=== PATIENT | female | born 1950 | race Caucasian/White ===

== ENCOUNTER → 2018-05-02 15:45 | Outpatient (CLI) | payer MEDICARE, MEDICAID, SELFPAY ==
--- NOTE | 2018-05-02 15:51 | VDLE_ITS ---
Reason For Study: LEG PAIN AND SWELLING RIGHT LEFT CFV is compressible, spontaneous, phasic, GSV is normal. competent and demonstrates normal CFV is compressible, spontaneous, phasic, augmentation. competent, and demonstrates normal Procedure augmentation. Exam performed in department. FV is compressible, spontaneous, phasic, A preliminary report was called and/or faxed competent and demonstrates normal to Dr. Hinson. augmentation. POP V is compressible, spontaneous, phasic, competent and demonstrates normal augmentation. T/P Trunk is compressible. PTV is compressible. LT PerV is compressible. Interpretation Summary Deep veins of the left lower extremity are patent and compressible segmentally. There is no evidence of left lower extremity deep vein thrombosis. Valvular competence appears intact within the proximal deep venous system on the left . The left greater saphenous vein appears patent and compressible segmentally. Ordering Physician: Victor Hugo Hinson Referring Physician: Victor Hugo Hinson Performed By: Tamiko Marc RVT
== END ==
PROVIDERS: Family Provider Family Medicine; PCP Family Medicine; Visit Provider Family Medicine
DX: R60.9 Edema, unspecified (principal)
CPT/HCPCS: 93971

== ENCOUNTER → 2018-06-10 11:57 | Outpatient (CLI) | payer MEDICAID, MEDICARE, SELFPAY | PROVIDERS: Family Provider Family Medicine; PCP Family Medicine; Visit Provider Family Medicine | DX: M81.0 Age-related osteoporosis without current pathological fracture (principal) | CPT/HCPCS: 77080 ==

== ENCOUNTER → 2019-01-19 13:46 | Outpatient (CLI) | payer MEDICARE, MEDICAID, SELFPAY ==
[2017-03-30 19:20] VITALS: BMI 26.0
--- NOTE | 2019-01-19 13:56 | RAD_ITS ---
STUDY: X-RAY - LUMBAR SPINE REASON FOR EXAM: Female, 69 years old. Sacroiliac strain/hip pain. TECHNIQUE: 3 view(s) of the lumbar spine were obtained. COMPARISON: None FINDINGS: Normal lumbar lordosis. There is no substantial scoliosis. There is a normal alignment of the vertebrae. Old and she was compression fracture of the upper L2 vertebral body. No suspicious acute fractures in the lumbar spine. Moderate L5-S1 disc space height narrowing. All remaining lumbar disc space heights are normal. Dense atherosclerotic calcifications along the abdominal aorta and the iliac arteries. RAD/Lumbar Spine 2 or 3 Views IMPRESSION: 1. Old anterior wedge compression fracture of the upper L2 vertebral body. 2. No acute osseous abnormality of the lumbar spine. 3. Moderate L5-S1 disc space height narrowing. Electronically Signed: Sheldon Ocampo MD at 12:36 EDT , Service support ,
== END ==
PROVIDERS: Family Provider Family Medicine; PCP Family Medicine; Referring Provider Chiropractor Orthopedic; Visit Provider Chiropractor Orthopedic
DX: M25.559 Pain in unspecified hip (principal)
CPT/HCPCS: 72100

== ENCOUNTER → 2019-02-17 | Outpatient (CLI) | payer MEDICARE, MEDICAID, SELFPAY ==
[2017-03-30 19:20] VITALS: BMI 26.0
--- NOTE | 2019-02-17 14:37 | RAD_ITS ---
STUDY: X-RAY - PELVIS AND RIGHT HIP REASON FOR EXAM: Female, 69 years old. Hip pain status post exercise/work TECHNIQUE: 3 views of the pelvis and hip. COMPARISON: None. FINDINGS: Alignments appear anatomic. There is no acute fracture lucency. There is no cortical step-off. There is minimal bilateral hip osteoarthritis. Mild degenerative changes are seen throughout the visualized segments of the inferior lumbar spine and sacrum. Calcified pelvic phleboliths are seen in the left paramedian pelvis. There is a mild to moderate, nonerosive degenerative change of both sacroiliac joints. The bowel gas pattern within the field of view demonstrates a moderately prominent amount of air and stool throughout the visualized colonic segments. Advise correlation for constipation. RAD/HIP, UNI W/ Pelvis 2-3 Views IMPRESSION: No evident acute osseous abnormality. Arthritic changes as discussed above. The bowel gas pattern within the field of view demonstrates a moderately prominent amount of air and stool throughout the visualized colonic segments. Advise correlation for constipation. Electronically Signed: Alejandro Coffman MD at 16:14 EDT , Service support ,
== END | disposition home or self-care (01) ==
LOC: RAD 14:12
PROVIDERS: Family Provider Family Medicine; PCP Family Medicine; Referring Provider Family Medicine; Visit Provider Family Medicine
DX: M25.551 Pain in right hip (principal); M81.0 Age-related osteoporosis without current pathological fracture
CPT/HCPCS: 73502

== ENCOUNTER 2019-02-27 11:30 | Outpatient (RCR) | payer MEDICARE, SELFPAY ==
--- NOTE | 2019-02-23 12:55 | HP.PTEVAL_ITS ---
Patient's Visit Information JUAN HAWKINS is a 69 year old F referred to Physical Therapy by Mary De León MD with a diagnosis of R hip pain.. Date of Evaluation: 02/23/19 Physical Therapist: Jeff Garcia DPT, OCS, CSCS - Visit Plan Frequency: 3x /Week Duration: 4-6 Weeks Plan: Pt presents with extreme acute R hip pain very unusual and very limiting to walking WB. Will try to treat symptoms and maximize healing potential btu questionable prognosis and will get back to doctor quickly if not helping for more diagnostics for labral vs fracture. Start with distraction and PROM combined with patient leg swing adn NWB ambulation R and do ES and ice for the first week to treat pain, will recheck with therapist in a week for decision to cotninue or back to doctor. - Subjective Findings: Two months ago hurt R posterior hip bending over to move boxes. Got worse over time where it hurts in her groin now adn needs to use wh walker, did not need prior. Dr. Cardozo treated posterior pain and then x rays from [facility] doctor and found muscle spasms according to patient. Given muscle relaxer adn pain pills. Been on them a week and not helping. No other treatments. Sleep is OK most of time but wakes up sometimes as she moved it the worng way last night. Pain is unusually sore today at 10/10 in R groin.. Normally around 7/10 lately , 0/10 prior. Hurts at rest on back of leg. Sometimes hard to move leg on its own. Not employed. 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 No falls. Did fall in kitchen 2 week with R leg giving out. Wasn't using walker at that time. Can dress and and do basic ADLs on her own. - Pain R groin Pain Intensity (Out of 10): 7 Pain Intensity Range: 2, 10 - Objective Ambulating with wh walker Min WB R and antalgic. Unable to ambulate without AD, unable to march in place adn avoids WB R in stance. L/S aROM WNL but ext adn L SB give her R groin pain. Tender minimally in psoas and generally anterior R hip and groin area. L hip AROM WFL and without pain. R hip AROM max limited due to pain in all directions, PROM only slightly less painful than AROM. Distraction does seem to help her walk slightly better and decreases pain to 3/10 trasniently. NWB walker is netter. Unable to do special tests at hip due to extreme pain with R hip movements in fexion and rotation and abduction all limted maximally even with PROM. Unable to SLS on R. Unable to lift R leg without extreme pain in any plane. - Goals Goal 1:: Pt painfree at rest adn 3/10 max pain with WB ambualtion. Goal Time Frame: 4-6 Weeks Goal 2:: Sleep without waking due to pain. Goal Time Frame: 4-6 Weeks Goal 3:: Pt able to climb steps with R I Goal Time Frame: 4-6 Weeks Goal 4:: I approp HEP to minimize future problems. Goal Time Frame: 4-6 Weeks - Rehabilitation Potential Physical Therapy Diagnosis: R hip pain, DD include labral vs fracture vs acute OA flare up. Rehabilitation Potential: Questionable - Anticipated Interventions Patient/Client Instruction: Educate patient on: Condition, Plan of Care For the Purpose of:: To decrease pain, To improve muscle performance and motor function, To improve gait and locomotor functions Therapeutic Exercise to Include: Strength training, Gait and locomotor training, Passive ROM For the Purpose of:: To decrease pain, To increase ROM, To improve nutrient delivery to tissue, To improve ability of physical actions for home/community/work/leisure, To improve gait and locomotor functions Manual Therapy Techniques to Include: Mobilization Comment: grade 1-2 For the Purpose of:: To decrease pain, To increase ROM TENS: Yes Cryotherapy (ice pack, ice massage): Yes For the Purpose of:: To decrease pain Thank you for the opportunity to evaluate your patient. For Medicare and Medicare HMO plans, please review the plan of care and approve it. It will need to be FAXED BACK to us at [phone] for Medicare purposes. For Medicare only, by signing this I certify the plan of care. Please let me know if there are questions or concerns regarding this plan of care. Physician Signature: _Date:
--- NOTE | 2019-03-10 11:58 | HP.PT.NRP ---
HP - Discharge Summary (1) - Patient Information JUAN HAWKINS was seen in my office for initial evaluation on 02/23/19. The following Plan of Care was established for this patient: Initial Frequency: 3x /Week Initial Duration: 4-6 Weeks - Anticipated Interventions Patient/Client Instruction: Educate patient on: Condition, Plan of Care For the Purpose of:: To decrease pain, To improve muscle performance and motor function, To improve gait and locomotor functions Therapeutic Exercise to Include: Strength training, Gait and locomotor training, Passive ROM For the Purpose of:: To decrease pain, To increase ROM, To improve nutrient delivery to tissue, To improve ability of physical actions for home/community/work/leisure, To improve gait and locomotor functions Manual Therapy Techniques to Include: Mobilization Comment: grade 1-2 For the Purpose of:: To decrease pain, To increase ROM TENS: Yes Cryotherapy (ice pack, ice massage): Yes For the Purpose of:: To decrease pain This patient was last seen in our office 02/27/19. Pertinent comments regarding their Physical therapy will appear below: Pt seen for 3 visits of plan of care but was sent back to doctor due to unusual findings of pain. Had MRI and has fractured pelvis and will not be returning to PT anytime soon as she has to heal for 6 weeks. i will disocntinue at her request per her phone call today. At this point I will be discontinuing this patient from physical therapy. I would be happy to see this patient again in the future if found appropriate by the physician. Thank you! Jeff Garcia, DPT, OCS, CSCS
== END 2019-02-27 19:00 | disposition home or self-care (01) ==
LOC: PT 11:30
PROVIDERS: Family Provider Family Medicine; PCP Family Medicine; Referring Provider Family Medicine; Visit Provider Family Medicine
DX: M25.551 Pain in right hip (principal)
CPT/HCPCS: 97014; 97110; 97140; 97162; G0283

== ENCOUNTER → 2019-03-06 12:05 | Outpatient (CLI) | payer MEDICARE, MEDICAID, SELFPAY ==
--- NOTE | 2019-03-06 12:13 | MRI_ITS ---
STUDY: MRI RIGHT HIP REASON FOR EXAM: Right hip pain status post lifting injury several weeks ago. TECHNIQUE: Standardized fat and water weighted pulse sequences were obtained in all 3 orthogonal planes. COMPARISON: Radiographs 02/17/2019. FINDINGS: There is chondral thinning of the medial right hip joint (T1 coronal image 18). There is a suspected small right anterosuperior labral tear (proton-density sagittal image 13). Normal femoral head. Normal femoral neck and intratrochanteric region. Normal gluteus minimus, medius and iliopsoas tendons and distal insertions. There is minimal fluid in the right greater trochanteric bursa. There is a nondisplaced fracture of the right superior pubic ramus with bone edema extending into the acetabulum (inversion recovery axial images 20, 21). There is a nondisplaced fracture of the right inferior pubic ramus with bone edema (inversion recovery axial images 26, 27). The bone edema extends into the right parasymphyseal bone. Normal ischial tuberosity. Normal origin of the hamstring tendons. There is a nondisplaced fracture of the right sacral ala with bone edema (inversion recovery coronal images 9-11). There is edema in the right obturator externus muscle (inversion recovery axial images 24-28). MRI/Lower Ext Joint Only (Routine) IMPRESSION: Nondisplaced fractures of the right obturator ring and right sacral ala. Edema in the right obturator externus muscle. Right hip arthrosis with suspected small anterosuperior labral tear. Electronically Signed: Thom Addison MD at 13:45 EDT Tel , Service support ,
== END ==
PROVIDERS: Family Provider Family Medicine; PCP Family Medicine; Referring Provider Family Medicine; Visit Provider Family Medicine
DX: M25.559 Pain in unspecified hip (principal); M81.0 Age-related osteoporosis without current pathological fracture
CPT/HCPCS: 73721

== ENCOUNTER → 2019-03-18 | Outpatient (CLI) | payer MEDICARE, SELFPAY ==
[2017-03-30 19:20] VITALS: BMI 26.0
== END | disposition home or self-care (01) ==
LOC: LABSPEC 15:32
PROVIDERS: Family Provider Family Medicine; PCP Family Medicine; Referring Provider Internal Medicine Cardiovascular Disease; Visit Provider Internal Medicine Cardiovascular Disease
DX: I25.10 Atherosclerotic heart disease of native coronary artery without angina pectoris (principal); I10 Essential (primary) hypertension
CPT/HCPCS: 84484

== ENCOUNTER → 2019-03-24 | Outpatient (CLI) | payer MEDICARE, MEDICAID, SELFPAY ==
--- NOTE | 2019-03-24 09:30 | STRESSREP ---
Stress Test Report Date: 03-24-19 Procedure: Pharmacologic stress nuclear imaging study Indications: Shortness of breath/dyspnea; dizziness; CAD Consent: Per the patient Procedure: The patient underwent pharmacologic (Regadenoson) evaluation with a peak heart rate of 91 beats per minute (60 %predicted maximal heart rate) and a peak blood pressure of 190/98 mmHg. The baseline ECG demonstrated sinus bradycardia; nonspecific ST/T wave abnormality. The peak pharmacologic ECG demonstrated no obvious ECG changes. There were no cardiac dysrhythmias pretest, during pharmacologic infusion, or recovery. There was no complaint of chest discomfort during pharmacologic infusion or recovery. The examination was discontinued secondary to completion of protocol. Impression: 1. Pharmacologic (Regadenoson) evaluation 2. Peak pharmacologic ECG with continued nonspecific ST/T wave abnormality with no obvious ECG changes. 3. There were no cardiac dysrhythmias pretest, during pharmacologic infusion, or recovery. 4. Nuclear images pending Myocardial perfusion imaging study: Technique: The patient was injected with 10.8 millicuries of technetium 99m Cardiolite and subsequently rest SPECT Cardiolite nuclear imaging was obtained in the horizontal long, vertical long, and short axis views. The patient underwent pharmacologic (Regadenoson) evaluation with a peak heart rate of 91 beats per minute (60 % percent predicted maximal heart rate) and a peak blood pressure of 190/98 mmHg. The patient was injected with 30.1 millicuries of technetium 99m Cardiolite and subsequently stress SPECT Cardiolite nuclear imaging was obtained in the horizontal long, vertical long, and short axis views. A gated Cardiolite study at peak stress was obtained. Interpretation: Rest and stress SPECT Cardiolite nuclear imaging status post realignment, normalization, and attenuation correction demonstrate relative uniform tracer uptake and myocardial perfusion appearing within normal limits. There is end systolic thickening and brightening. The gated Cardiolite study demonstrates myocardial thickening and inward wall motion. The reported LVEF is 79 %. Impression: 1. Rest and stress SPECT Cardiolite nuclear imaging demonstrate relative uniform tracer uptake and myocardial perfusion appearing within normal limits. 2. The gated Cardiolite study reports an LVEF of 79 %. This note was generated with [employer] software. It may contain incorrect words, spelling, and punctuation that were not noted in checking the note before signing.
== END | disposition home or self-care (01) ==
PROVIDERS: Family Provider Family Medicine; PCP Family Medicine; Referring Provider Internal Medicine Cardiovascular Disease; Visit Provider Internal Medicine Cardiovascular Disease
DX: I25.10 Atherosclerotic heart disease of native coronary artery without angina pectoris (principal); R31.0 Gross hematuria; I10 Essential (primary) hypertension
CPT/HCPCS: 78452; 87086; 87088; 93017; A9500; A4216; J2785

== ENCOUNTER → 2019-04-16 | Outpatient (CLI) | payer MEDICARE, MEDICAID, SELFPAY ==
--- NOTE | 2019-04-16 06:33 | CT_ITS ---
STUDY: CT ABDOMEN AND PELVIS WITH AND WITHOUT CONTRAST REASON FOR EXAM: Female, 69 years old. Gross hematuria for 2 weeks. RADIATION DOSAGE (If Supplied By Facility): CTDIvol = ( 11.15 ) mGy, DLP = ( 1220.76 ) mGycm TECHNIQUE: Transaxial images were obtained from the dome of the diaphragm to the symphysis pubis without oral contrast. 100 ml of IV Isovue 300 was administered. Sagittal and coronal images were reconstructed. Individualized dose optimization techniques were used for this CT. COMPARISON: CT abdomen and pelvis dated December 16, 2014. FINDINGS: The visualized lung bases are unremarkable. The visualized portions of the heart are within normal limits. Normal liver. Normal gallbladder and extrahepatic biliary system. Normal spleen. Normal pancreas. Normal bilateral adrenal glands. Normal right kidney. Normal left kidney. Delayed images document excretion of contrast by both kidneys. Normal visualized stomach. There is no evidence for dilated bowel, ascites or pneumoperitoneum. The small bowel has a grossly normal appearance. There is a large amount of stool visible throughout most of the colon suggesting possible fecal stasis and/or constipation. There are scattered colonic diverticula. The cecum is mobile and apparently is located in the left upper quadrant. There is non-visualization of the appendix. There is diffuse atherosclerotic calcification of the abdominal aorta, without a demonstrated aneurysm. There is venous distention of the inferior vena cava (IVC). Normal retroperitoneum. There is a calcification in the urinary bladder measuring approximately 5.8 mm in size. There is absence of the uterus consistent with a prior hysterectomy. There is a small umbilical hernia containing fat. There is severe compression fracture of T11 with vertebral plana appearance. This is new since the previous study. There is mild acquired canal stenosis at this level secondary to encroachment of the posterior margin of the C2 body into the spinal canal. There is moderate compression fracture of L2, unchanged since the previous study. The bones are generally osteopenic. There is multilevel degenerative disc disease in the degenerative arthropathy of the thoracic and lumbar spine. There is eburnation of the right sacrum possibly related to insufficiency fracture. This is also new since the previous CT. There is a evidence of degenerative arthropathy of the left sacroiliac joint. There is a subacute fracture of the right inferior pubic ramus and right superior pubic ramus. CT/CT Abd/Pelvis W/WO Contrast IMPRESSION: 1. Ureteral bladder calculus. 2. Extensive atherosclerotic calcification of the abdominal aorta. 3. Osteoporosis with severe compression fracture of T11, new since the previous CT. 4. Evidence for insufficiency fracture of the the right sacral ala, as well as the fractures of the right superior and inferior pubic rami similar to previous MRI report dated March 06, 2019. The MR images are not available for comparison at the time of dictation. 5. Large amount of stool suggesting possible fecal stasis and/or constipation. 6. Probable mobile cecum. Electronically Signed: Lia Hanson MD at 10:38 EDT , Service support ,
== END | disposition home or self-care (01) ==
LOC: CT 06:31
PROVIDERS: Family Provider Family Medicine; PCP Family Medicine; Referring Provider Urology; Visit Provider Urology
DX: R31.0 Gross hematuria (principal)
CPT/HCPCS: 74178; Q9967

== ENCOUNTER → 2019-04-20 | Outpatient (CLI) | payer MEDICARE, MEDICAID, SELFPAY ==
--- NOTE | 2019-04-20 10:30 | CT_ITS ---
STUDY: CT ABDOMEN AND PELVIS WITHOUT CONTRAST REASON FOR EXAM: Female, 69 years old. Possible surgery to remove kidney stone RADIATION DOSAGE (If Supplied By Facility): CTDIvol = ( 8.82 ) mGy, DLP = ( 388.41 ) mGycm TECHNIQUE: Transaxial images were obtained from the dome of the diaphragm to the symphysis pubis without oral contrast, and without intravenous contrast. Sagittal and coronal images were reconstructed. Individualized dose optimization techniques were used for this CT. COMPARISON: 04/16/2019 FINDINGS: The visualized lung bases are unremarkable. The visualized portions of the heart are within normal limits. Normal liver. Normal gallbladder and extrahepatic biliary system. Normal spleen. Normal pancreas. Normal bilateral adrenal glands. Normal right kidney. Normal left kidney. Normal visualized stomach. Normal small intestine. Prominent fecal retention throughout the colon. There is non-visualization of the appendix. There is diffuse atherosclerotic calcification of the abdominal aorta, without a demonstrated aneurysm. Normal inferior vena cava. Normal retroperitoneum. Previous stone noted within the bladder measuring 5.8 mm is no longer clearly identified. Status post hysterectomy There is a small umbilical hernia containing fat. There are diffuse degenerative changes of the visualized lumbar spine. Healing fractures of the right superior and inferior pubic rami. Right sacral insufficiency fracture with healing. CT/Abdomen/Pelvis without Cont IMPRESSION: No evidence of urolithiasis or renal obstruction. Previous bladder stone is no longer identified. Fecal retention throughout the colon Electronically Signed: Abdirizak Vasquez DO at 11:25 EDT Tel , Service support ,
== END | disposition home or self-care (01) ==
PROVIDERS: Family Provider Family Medicine; PCP Family Medicine; Referring Provider Urology; Visit Provider Urology
DX: N20.0 Calculus of kidney (principal); R31.0 Gross hematuria
CPT/HCPCS: 74176

== ENCOUNTER → 2019-05-12 10:20 | Outpatient (CLI) | payer MEDICARE, SELFPAY ==
[2019-04-22 11:35] VITALS: BMI 24.2
== END ==
PROVIDERS: Family Provider Family Medicine; PCP Family Medicine; Referring Provider Urology; Visit Provider Urology
DX: R31.0 Gross hematuria (principal)

== ENCOUNTER → 2019-05-20 | Outpatient (CLI) | payer MEDICARE, SELFPAY ==
[2019-04-22 11:35] VITALS: BMI 24.2
[2019-05-20 12:24] LABS: Absolute Lymphocyte Count 2.05 X10^3/uL (0.83-4.51); Absolute Neutrophil Count 2.9 X10^3/uL (2.0-7.7); Basophil# 0.08 X10^3/uL; Basophil% 1.4 % (0-1); Eosinophil# 0.43 X10^3/uL; Eosinophils% 7.4 % (0-5); Hematocrit 47.3 % (37-47); Hemoglobin 15.2 g/dL (12.0-15.0); Lymphocyte # 2.05 X10^3/ul (4.0); Lymphocyte % 35.2 % (19-41); Mean Corp Hgb Conc 32.1 g/dL (32-36); Mean Corpuscular Hgb 30.6 pg (27.0-32.0); Mean Corpuscular Volume 95.2 fL (81-99); Mean Platelet Vol. 11.1 fl (6.2-12.0); Monocyte# 0.35 X10^3/uL; NRBC Flagged by Analyzer 0 % (0-5); Neutrophil % 49.8 % (47-70); Platelet Count 210 K/mm3 (150-450); RBC Distribution Width CV 14.3 % (11.6-14.6); RBC Distribution Width SD 50.1 fl (35.1-43.9); Red Blood Count 4.97 M/mm3 (4.2-5.4); White Blood Count 5.8 K/mm3 (4.4-11.0)
[2019-05-20 12:51] LABS: ALB/GLOB Ratio 1.1 RATIO (0.9-2.4); AST(SGOT) 21 U/L (15-37); Alanine Aminotransfer ALT/SGPT 22 U/L (13-56); Albumin, Serum 3.8 g/dL (3.2-5.0); Alkaline Phosphatase 114 U/L (45-117); Anion Gap 5 (5-15); BUN 12 mg/dL (7-18); BUN/Creat Ratio 16.5 RATIO (10-20); Chloride 107 mmol/L (98-107); Cholesterol 185 mg/dL (200); Creatinine, Serum 0.73 mg/dL (0.55-1.02); EST Glomerular Filtration Rate 84 mL/min (>60); Est Glom Filt Rate - Afr Amer 102 mL/min (>60); Globulin 3.4 g/dL (2.2-4.2); Glucose 96 mg/dL (74-106); High Density Lipoprotein 63 mg/dL; Potassium 3.8 mmol/L (3.5-5.1); Protein, Total 7.2 g/dL (6.4-8.2); Sodium Level 141 mmol/L (136-145); Triglycerides 79 mg/dL; Very Low Density Lipoprotein 16 mg/dL (5-40)
== END | disposition home or self-care (01) ==
LOC: LAB.FUTURE 08:06
PROVIDERS: Family Provider Family Medicine; PCP Family Medicine; Visit Provider Family Medicine
DX: I10 Essential (primary) hypertension (principal); E78.5 Hyperlipidemia, unspecified
CPT/HCPCS: 36415; 80053; 80061; 85025

== ENCOUNTER → 2019-05-29 | Outpatient (CLI) | payer MEDICARE, MEDICAID, SELFPAY ==
[2019-04-22 11:35] VITALS: BMI 24.2
--- NOTE | 2019-05-29 07:39 | ECHOCS_ITS ---
Reason For Study: HYPERTENSION Procedure This was a 2D Doppler, Color Flow transthoracic echocardiogram. The study was technically difficult. Diminished parasternal accoustic windows. Contrast injection was performed. Left Ventricle Normal LV size. Left ventricular systolic function is normal. The estimated ejection fraction is 65 %. Stage 1 diastolic dysfunction. No regional wall motion abnormalities noted. Right Ventricle Normal RV size. Normal systolic function. Atria Normal left atrium. Normal right atrium. Bubble contrast study negative for right to left interatrial shunt. Mitral Valve Normal mitral valve. Mild (1+) eccentric mitral valve insufficiency. Tricuspid Valve Normal tricuspid valve. Mild (1+) tricuspid valve insufficiency. Pulmonary artery systolic pressure is 30 mmHg. Aortic Valve Trisinus/trileaflet aortic valve. Mild focal aortic valve calcification. Mild aortic stenosis. Pulmonic Valve Normal pulmonic valve. Great Vessels Normal aortic root. The pulmonary artery is normal size. Normal inferior vena cava. Pericardium/Pleural No pericardial effusion. Medication 22 gauge I.V. with prn adaptor inserted into right arm. Performed a rapid injection of agitated mix of 9 cc saline and 1cc air to assess for atrial septal defect. Diluted definity 3.0ml given slow IV push to enhance endocardial definition. MMode/2D Measurements & Calculations LVIDd: 4.4 cm IVSd: 1.1 cm LVOT diam: 1.8 cm LVIDs: 2.7 cm LVPWd: 1.1 cm RVDd: 2.9 cm FS: 37.5 % LVOT area: 2.6 cm2 Ao root diam: 3.1 cm LAV(MOD-bp): 60.7 ml EDV(MOD-sp4): 68.5 ml LAV(MOD-bp) Indexed: 36.0 ml/m2 ESV(MOD-sp4): 20.6 ml LAV(MOD-sp2): 58.4 ml EF(MOD-sp4): 70.0 % LAV(MOD-sp4): 58.1 ml EDV(MOD-sp2): 39.8 ml SV(MOD-sp4): 47.9 ml SV(MOD-sp2): 23.7 ml EF(MOD-sp2): 59.4 % LA dimension(2D): 4.3 cm LA A4 area: 20.2 cm2 RA A4 area: 14.1 cm2 Time Measurements MV dec time: 0.28 sec Doppler Measurements & Calculations MV E max cornel: 89.8 cm/sec Lat Peak E' Cornel: 6.9 cm/sec Med Peak E' Cornel: 5.8 cm/sec MV A max cornel: 98.0 cm/sec E/E' lat: 13.0 E/E' med: 15.6 MV E/A: 0.92 Ao V2 max: 222.4 cm/sec LV V1 max: 141.4 cm/sec SV(LVOT): 91.4 ml Ao max P.8 mmHg LV V1 max P.0 mmHg Ao V2 mean: 151.7 cm/sec LV V1 mean P.1 mmHg Ao mean P.3 mmHg LV V1 mean: 95.5 cm/sec Ao V2 VTI: 54.0 cm LV V1 VTI: 35.2 cm ROSETTA(I,D): 1.7 cm2 ROSETTA(V,D): 1.7 cm2 PA V2 max: 89.8 cm/sec TR max cornel: 251.2 cm/sec TR max P.3 mmHg Interpretation Summary Normal LV size. Left ventricular systolic function is normal. The estimated ejection fraction is 65 %. Stage 1 diastolic dysfunction. Mild focal aortic valve calcification. Mild aortic stenosis. Contrast injection was performed. Ordering Physician: Salo Serrano Referring Physician: Mary De León Performed By: Rashida Mejia, TYRONE, RVT
== END | disposition home or self-care (01) ==
LOC: CVS 07:38
PROVIDERS: Family Provider Family Medicine; PCP Family Medicine; Referring Provider Internal Medicine Cardiovascular Disease; Visit Provider Internal Medicine Cardiovascular Disease
DX: I10 Essential (primary) hypertension (principal); I35.0 Nonrheumatic aortic (valve) stenosis
CPT/HCPCS: 93306; Q9957; A4216; C8929

== ENCOUNTER → 2019-06-05 08:23 | Outpatient (CLI) | payer MEDICARE, MEDICAID, SELFPAY ==
[2019-04-22 11:35] VITALS: BMI 24.2
--- NOTE | 2019-06-05 08:26 | CDU_ITS ---
Reason For Study: Episode of Blacking Out Rt. Velocities/BP Lt. Velocities/BP Prox CCA 44/8 cm/sec. Prox CCA 59/18 cm/sec. Mid CCA 49/12 cm/sec. Mid CCA 63/16 cm/sec. Dist CCA 40/11 cm/sec. Dist CCA 52/14 cm/sec. Prox ICA 42/13 cm/sec. Prox ICA 57/16 cm/sec. Mid ICA 49/18 cm/sec. Mid ICA 74/24 cm/sec. Dist ICA 57/18 cm/sec. Dist ICA 59/21 cm/sec. Rt. ICA/CCA = 1.2. Lt. ICA/CCA = 1.2. Prox ECA 71/11 cm/sec. Prox ECA 81/11 cm/sec. Rt. Vert. 75/19 cm/sec. Lt. Vert. 54/13 cm/sec. Right Extracranial There is homogeneous, smooth atherosclerotic plaque noted in the right common carotid artery. There is heterogeneous, smooth atherosclerotic plaque noted in the right internal carotid artery. There is homogeneous, smooth atherosclerotic plaque noted in the right external carotid artery. Antegrade flow is noted in the right vertebral artery. Left Extracranial There is homogeneous, smooth atherosclerotic plaque noted in the left common carotid artery. There is heterogeneous, irregular atherosclerotic plaque noted in the left internal carotid artery. There is heterogeneous, irregular atherosclerotic plaque noted in the left external carotid artery. Antegrade flow is noted in the left vertebral artery. Procedure Carotid Duplex [id number]. Exam performed in department. Interpretation Summary Minimal smooth plague at the proximal right internal carotid wit <50% stenosis <50% stenosis right external carotid Irregular plague at the proximal left internal carotid with <50% stenosis. <50% stenosis left external carotid Patent, antegrade vertebrals bilaterally with <50% stenosis. Ordering Physician: Mary De León Referring Physician: Mary De León Performed By: Brenda Casarez, TYRONE, RVT
== END ==
PROVIDERS: Family Provider Family Medicine; PCP Family Medicine; Referring Provider Family Medicine; Visit Provider Family Medicine
DX: E78.5 Hyperlipidemia, unspecified (principal); R55 Syncope and collapse; I10 Essential (primary) hypertension; F17.200 Nicotine dependence, unspecified, uncomplicated
CPT/HCPCS: 93880

== ENCOUNTER → 2019-06-12 | Outpatient (CLI) | payer MEDICARE, SELFPAY ==
[2019-04-22 11:35] VITALS: BMI 24.2
== END | disposition home or self-care (01) ==
PROVIDERS: Family Provider Family Medicine; PCP Family Medicine; Visit Provider Family Medicine
DX: R31.9 Hematuria, unspecified (principal)
CPT/HCPCS: 87086; 87088

== ENCOUNTER → 2019-06-19 | Outpatient (CLI) | payer MEDICARE, MEDICAID, SELFPAY ==
[2019-04-22 11:35] VITALS: BMI 24.2
--- NOTE | 2019-06-19 07:34 | CT_ITS ---
STUDY: CT ABDOMEN AND PELVIS WITHOUT CONTRAST REASON FOR EXAM: Female, 69 years old. Urinary frequency. Evaluate for renal stone. RADIATION DOSAGE (If Supplied By Facility): CTDIvol = ( 10.97 ) mGy, DLP = ( 461.31 ) mGycm TECHNIQUE: Transaxial images were obtained from the dome of the diaphragm to the symphysis pubis without oral contrast, and without intravenous contrast. Sagittal and coronal images were reconstructed. Individualized dose optimization techniques were used for this CT. COMPARISON: 04/20/2019 FINDINGS: Evaluation of the abdominal viscera is limited in the absence of intravenous contrast. The visualized lung bases are clear. The visualized portions of the heart and pericardium are within normal limits. There are no calcified gallstones present. The liver demonstrates an unremarkable unenhanced appearance. The spleen is normal in size. The pancreas demonstrates an unremarkable unenhanced appearance. The adrenal glands are within normal limits. There are no renal or ureteral stones. There is no hydronephrosis. Normal visualized stomach. There is no bowel obstruction or inflammation. The appendix is not visualized, but there are no findings to suggest acute appendicitis. The aorta is normal in caliber. Again noted are atherosclerotic calcifications in the aorta. There is no abdominal or pelvic free air, free fluid, fluid collection or lymphadenopathy. There are no destructive osseous lesions. Again noted are healing fractures of the sacrum and right superior and inferior pubic rami. CT/Abdomen/Pelvis without Cont IMPRESSION: No acute abdominal or pelvic pathology demonstrated on this noncontrast CT. No significant change when compared with 04/20/2019. Electronically Signed: Mil Prasad, at 17:02 EDT Tel , Service support ,
== END | disposition home or self-care (01) ==
PROVIDERS: Family Provider Family Medicine; PCP Family Medicine; Referring Provider Family Medicine; Visit Provider Family Medicine
DX: R31.9 Hematuria, unspecified (principal); M54.9 Dorsalgia, unspecified
CPT/HCPCS: 74176

== ENCOUNTER → 2019-08-10 | Outpatient (CLI) | payer MEDICARE, MEDICAID, SELFPAY ==
[2019-04-22 11:35] VITALS: BMI 24.2
--- NOTE | 2019-08-10 09:07 | RAD_ITS ---
STUDY: AIR-CONTRAST UPPER GI SERIES. REASON FOR EXAM: Female, 69 years old. Dysphagia. FLUOROSCOPY TIME (if supplied): ( 82 seconds. ) minutes/seconds TECHNIQUE: The patient ingested barium. Multiple images of the esophagus stomach and duodenum were obtained. COMPARISON: None. FINDINGS: The esophagus is unremarkable. There is no evidence of obstruction. No evidence of gastroesophageal reflux. The stomach and duodenum are unremarkable. There is no evidence of ulceration. No mass lesion is present. RAD/Upper GI Series Only IMPRESSION: Unremarkable air contrast upper GI series. Electronically Signed: Juan Carlos Laguna, at 10:57 EDT , Service support ,
== END | disposition home or self-care (01) ==
LOC: RAD 09:02
PROVIDERS: Family Provider Family Medicine; PCP Family Medicine; Referring Provider Family Medicine; Visit Provider Family Medicine
DX: K21.9 Gastro-esophageal reflux disease without esophagitis (principal); K44.9 Diaphragmatic hernia without obstruction or gangrene
CPT/HCPCS: 74246

== ENCOUNTER → 2019-12-01 11:10 | Outpatient (CLI) | payer BC, MEDICAID, SELFPAY ==
[2019-04-22 11:35] VITALS: BMI 24.2
[2019-12-01 12:51] LABS: Basophil# 0.06 X10^3/uL; Basophil% 0.8 % (0-1); Eosinophil# 0.42 X10^3/uL; Eosinophils% 5.7 % (0-5); Hematocrit 50.1 % (37-47); Lymphocyte % 31.5 % (19-41); Mean Corp Hgb Conc 31.9 g/dL (32-36); Mean Corpuscular Hgb 30.2 pg (27.0-32.0); Mean Corpuscular Volume 94.7 fL (81-99); Mean Platelet Vol. 10.6 fl (6.2-12.0); Monocyte# 0.48 X10^3/uL; Monocyte% 6.6 % (0-10); NRBC Flagged by Analyzer 0 % (0-5); Neutrophil # 4.03 X10^3/uL (2.7-7.7); Neutrophil % 55.1 % (47-70); Platelet Count 223 K/mm3 (150-450); RBC Distribution Width CV 13.2 % (11.6-14.6); RBC Distribution Width SD 46.8 fl (35.1-43.9); Red Blood Count 5.29 M/mm3 (4.2-5.4); White Blood Count 7.3 K/mm3 (4.4-11.0)
[2019-12-01 12:58] LABS: ALB/GLOB Ratio 1.1 RATIO (0.9-2.4); AST(SGOT) 20 U/L (15-37); Alanine Aminotransfer ALT/SGPT 20 U/L (13-56); Albumin, Serum 3.9 g/dL (3.2-5.0); Alkaline Phosphatase 90 U/L (45-117); Anion Gap 5 (5-15); BUN 12 mg/dL (7-18); BUN/Creat Ratio 14.4 RATIO (10-20); Calcium,Total 9.7 mg/dL (8.5-10.1); Chloride 107 mmol/L (98-107); Cholesterol 271 mg/dL (200); Creatinine, Serum 0.84 mg/dL (0.55-1.02); EST Glomerular Filtration Rate 72 mL/min (>60); Est Glom Filt Rate - Afr Amer 87 mL/min (>60); Globulin 3.6 g/dL (2.2-4.2); Glucose 92 mg/dL (74-106); High Density Lipoprotein 72 mg/dL; Potassium 4.2 mmol/L (3.5-5.1); Protein, Total 7.5 g/dL (6.4-8.2); Sodium Level 139 mmol/L (136-145); Triglycerides 90 mg/dL; Very Low Density Lipoprotein 18 mg/dL (5-40)
== END ==
PROVIDERS: PCP Family Medicine; Visit Provider Family Medicine
DX: I10 Essential (primary) hypertension (principal); E78.5 Hyperlipidemia, unspecified
CPT/HCPCS: 36415; 80053; 80061; 85025

== ENCOUNTER 2020-01-03 17:47 | Emergency (ER) | payer BC, MEDICARE, SELFPAY ==
[2019-04-22 11:35] VITALS: BMI 24.2
[2020-01-03 17:49] VITALS: BP 208/92; PULSE 59; RESP 17; TEMP 36.1; O2SAT 98; BMI 24.5
--- NOTE | 2020-01-03 18:04 | EKG12_ITS ---
Test Reason : HYPERTENSION Blood Pressure : / mmHG Vent. Rate : 056 BPM Atrial Rate : 056 BPM P-R Int : 178 ms QRS Dur : 098 ms QT Int : 424 ms P-R-T Axes : 042 -13 153 degrees QTc Int : 409 ms Sinus bradycardia Incomplete right bundle branch block Possible Inferior infarct , age undetermined ST & T wave abnormality, consider anterolateral ischemia Abnormal ECG Confirmed by WAI ROBERTSON MD ([id number]), scientific editor LEOBARDO SANCHEZ ([id number]) on 01/04/2020 3:25:43 PM Referred By: DENI/ Confirmed By:WAI ROBERTSON MD
[2020-01-03 18:22] LABS: Absolute Lymphocyte Count 2.43 X10^3/uL (0.83-4.51); Absolute Neutrophil Count 4.5 X10^3/uL (2.0-7.7); Basophil# 0.06 X10^3/uL; Basophil% 0.8 % (0-1); Eosinophil# 0.39 X10^3/uL; Hematocrit 47.1 % (37-47); Lymphocyte # 2.43 X10^3/ul (4.0); Lymphocyte % 31.1 % (19-41); Mean Corp Hgb Conc 31.8 g/dL (32-36); Mean Corpuscular Hgb 30.2 pg (27.0-32.0); Mean Corpuscular Volume 94.8 fL (81-99); Mean Platelet Vol. 10.6 fl (6.2-12.0); Monocyte# 0.45 X10^3/uL; Monocyte% 5.8 % (0-10); NRBC Flagged by Analyzer 0 % (0-5); Neutrophil # 4.46 X10^3/uL (2.7-7.7); Platelet Count 191 K/mm3 (150-450); RBC Distribution Width CV 13.2 % (11.6-14.6); RBC Distribution Width SD 46.2 fl (35.1-43.9); Red Blood Count 4.97 M/mm3 (4.2-5.4); White Blood Count 7.8 K/mm3 (4.4-11.0)
[2020-01-03 18:40] LABS: Anion Gap 4 (5-15); BUN 16 mg/dL (7-18); BUN/Creat Ratio 24.7 RATIO (10-20); Calcium,Total 9.8 mg/dL (8.5-10.1); Chloride 108 mmol/L (98-107); Creatinine, Serum 0.65 mg/dL (0.55-1.02); EST Glomerular Filtration Rate 96 mL/min (>60); Est Glom Filt Rate - Afr Amer 116 mL/min (>60); Glucose 94 mg/dL (74-106); Potassium 3.7 mmol/L (3.5-5.1); Sodium Level 142 mmol/L (136-145)
[2020-01-03 18:57] VITALS: BP 183/85; PULSE 57; RESP 18; O2SAT 95
[2020-01-03 19:17] VITALS: BP 163/91; PULSE 58; RESP 16; O2SAT 98
--- NOTE | 2020-01-03 19:28 | ED.DCSUM_ITS ---
History of Present Illness Chief Complaint: Hypertension Narrative: Patient presenting for evaluation secondary to hypertension. Patient has an underlying history of hypertension, states that today she was having somewhat of a bandlike headache. She states that this was not sudden onset, was a continuous tightness in her head. She denies any visual changes numbness weakness chest pain shortness of breath dyspnea on exertion or orthopnea. Patient states that she took her blood pressure and noted it to be in the 200s, this concerned her so she came for further evaluation. She denies any recent changes in her medications, or missed doses. Review of systems otherwise negative. Past Medical History - Allergies and Home Meds Allergies/Adverse Reactions: Allergies watermelon Allergy (Intermediate, Verified 01/03/20 17:47) Hives Primary Care Physician: Mary De León MD [Primary Care Provider] - Past Medical History: - - Hypertension, hyperlipidemia Smoking Status: Light Smoker (<10/day) Review of Systems All systems negative except as indicated General: Denies: Chills, Fever, Sweats Eyes: Denies: Visual changes - bilaterally, Diplopia ENT: Denies: Rhinorrhea, Sore throat Cardiovascular: Denies: Chest pain, Palpitations Respiratory: Denies: Dyspnea, Cough, Dyspnea on exertion Gastrointestinal: Denies: Abdominal pain, Nausea, Vomiting, Diarrhea, Melena, Hematochezia Genitourinary: Denies: Dysuria, Hematuria, Frequency Musculoskeletal: Denies: Back pain, Extremity Pain Skin: Denies: Rash, Wounds Neurological: Reports: Headache Physical Exam Vital Signs/Narrative: Vital Signs Temp Pulse Resp BP Pulse Ox 01/03/20 19:17 58 L 16 163/91 H 98 01/03/20 18:57 57 L 18 183/85 H 95 01/03/20 17:49 96.9 F L 59 L 17 208/92 H 98 Inital Vital Signs reviewed: Yes General: Well nourished, Well developed, No Acute Distress Head: Normocephalic, Atraumatic Eyes: Perrl, EOMI ENT: Moist mucous membranes, No rhinorrhea Neck: Supple, Nontender Cardiovascular: Regular rate, Regular rhythm, No murmurs Respiratory: No distress, CTA bilaterally, Chest nontender Abdomen: Soft, Nontender, Nondistended, Normal bowel sounds Back: Nontender, Normal Inspection Extremities: Nontender, No edema Skin: Normal color, No rash Neurological: Alert, Oriented x3, Cranial nerves II-XII grossly intact, Normal Strength, Normal Sensation Psychological: Normal affect, Normal Mood Diagnostic/Tx/Re-eval - EKG Initial EKG Interpretation: - - Sinus rhythm of [address] depression and T wave inversions that are unchanged from prior EKG in February 2019. Incomplete right bundle branch block morphology is noted. - Medical Decision Making Patient presented with a headache and hypertension. Patient blood pressure when I evaluated her was in the 180s, and her symptoms were improving she was not given further intervention. Her blood pressure did trend down to 163/91. Work- up for endorgan damage was obtained. Patient has an abnormal EKG, but this is unchanged from prior EKG in 2019. No evidence of renal insufficiency or cardiac strain. Patient was recommended that she should follow-up with primary care for titration of her antihypertensives. I did recommend that should she have high running blood pressures, that she could take another dose of her lisinopril to a total of 40 mg a day. Patient does not have any abnormal neurologic findings and did not have a sudden onset headache so I do not feel that neuroimaging is indicated. ED Disposition - Plan for ED Patient: Disposition: Home or Assisted Living Diagnosis: Essential hypertension Instructions: HYPERTENSION, Established Referrals: Mary De León MD [Primary Care Provider] - 3-5 Days Additional Instructions: If you are having persistently high blood pressures, you can take an additional dose of your lisinopril, 20 mg, for a total of 40 mg/day.
[2020-01-03] MEDS: Lisinopril 20 MG Tablet PO (19:58)
[2020-01-03 20:04] VITALS: BP 196/94; PULSE 56; RESP 16; O2SAT 96
== END 2020-01-03 20:05 | disposition home or self-care (01) ==
PROVIDERS: Emergency Provider Emergency Medicine; PCP Family Medicine
DX: I10 Essential (primary) hypertension (principal); Z72.0 Tobacco use
CPT/HCPCS: 80048; 84484; 85025; 93005; 99284; A4216

== ENCOUNTER → 2020-04-19 13:51 | Outpatient (CLI) | payer MEDICARE, MEDICAID, SELFPAY ==
[2020-04-12 14:10] VITALS: BMI 24.4
--- NOTE | 2020-04-19 13:59 | CT_ITS ---
STUDY: CT ABDOMEN AND PELVIS WITHOUT CONTRAST REASON FOR EXAM: Female, 70 years old. abd pain, FLANK PAIN RADIATION DOSAGE (If Supplied By Facility): CTDIvol = ( 6.78 ) mGy, DLP = ( 294.61 ) mGycm TECHNIQUE: Transaxial images were obtained from the dome of the diaphragm to the symphysis pubis without oral contrast, and without intravenous contrast. Sagittal and coronal images were reconstructed. Individualized dose optimization techniques were used for this CT. COMPARISON: 06/19/2019 FINDINGS: The visualized lung bases are unremarkable. The visualized portions of the heart are within normal limits. Normal liver. Normal gallbladder and extrahepatic biliary system. Normal spleen. Normal pancreas. Normal bilateral adrenal glands. Normal right kidney. 3 mm nonobstructing left renal stone. Normal visualized stomach. Normal small intestine. There are multiple colonic diverticula consistent with diverticulosis. Constipation. There is non-visualization of the appendix. There is diffuse atherosclerotic calcification of the abdominal aorta, without a demonstrated aneurysm. Normal inferior vena cava. Normal retroperitoneum. Normal urinary bladder. Small umbilical fat hernia. Remote compression fractures of T11 and L2. Remote deformities of the right superior and inferior pubic rami. CT/Abdomen/Pelvis without Cont IMPRESSION: No evidence of acute intestinal pathology or acute obstructive uropathy. Constipation. Electronically Signed: Victor Hugo Velasco MD at 22:25 EDT Tel , Service support ,
== END ==
PROVIDERS: PCP Family Medicine; Referring Provider Family Medicine; Visit Provider Family Medicine
DX: R10.9 Unspecified abdominal pain (principal)
CPT/HCPCS: 74176

== ENCOUNTER → 2020-10-07 18:29 | Outpatient (CLI) | payer MEDICARE, MEDICAID, SELFPAY ==
[2020-04-12 14:10] VITALS: BMI 24.4
== END ==
PROVIDERS: PCP Family Medicine; Visit Provider Family Medicine
DX: R35.0 Frequency of micturition (principal)
CPT/HCPCS: 87086; 87088

== ENCOUNTER → 2020-10-11 06:12 | Outpatient (CLI) | payer MEDICARE, SELFPAY ==
[2020-04-12 14:10] VITALS: BMI 24.4
[2020-10-11 07:13] LABS: Absolute Neutrophil Count 4.6 X10^3/uL (2.0-7.7); Basophil# 0.06 X10^3/uL; Basophil% 0.8 % (0-1); Eosinophil# 0.33 X10^3/uL; Eosinophils% 4.2 % (0-5); Hematocrit 45.3 % (37-47); Hemoglobin 14.2 g/dL (12.0-15.0); Lymphocyte % 30.6 % (19-41); Mean Corp Hgb Conc 31.3 g/dL (32-36); Mean Corpuscular Hgb 30.5 pg (27.0-32.0); Mean Corpuscular Volume 97.4 fL (81-99); Mean Platelet Vol. 10.3 fl (6.2-12.0); Monocyte# 0.47 X10^3/uL; NRBC Flagged by Analyzer 0 % (0-5); Neutrophil # 4.56 X10^3/uL (2.7-7.7); Neutrophil % 58.1 % (47-70); Platelet Count 221 K/mm3 (150-450); RBC Distribution Width CV 13.9 % (11.6-14.6); RBC Distribution Width SD 50.7 fl (35.1-43.9); Red Blood Count 4.65 M/mm3 (4.2-5.4); White Blood Count 7.8 K/mm3 (4.4-11.0)
[2020-10-11 08:01] LABS: ALB/GLOB Ratio 1.1 RATIO (0.9-2.4); AST(SGOT) 17 U/L (15-37); Alanine Aminotransfer ALT/SGPT 20 U/L (13-56); Albumin, Serum 3.6 g/dL (3.2-5.0); Alkaline Phosphatase 77 U/L (45-117); Anion Gap 4 (5-15); BUN 11 mg/dL (7-18); BUN/Creat Ratio 16.7 RATIO (10-20); Calcium,Total 8.7 mg/dL (8.5-10.1); Chloride 111 mmol/L (98-107); Cholesterol 239 mg/dL (200); Creatinine, Serum 0.66 mg/dL (0.55-1.02); EST Glomerular Filtration Rate 94 mL/min (>60); Est Glom Filt Rate - Afr Amer 114 mL/min (>60); Globulin 3.2 g/dL (2.2-4.2); Glucose 87 mg/dL (74-106); High Density Lipoprotein 74 mg/dL; Potassium 3.7 mmol/L (3.5-5.1); Protein, Total 6.8 g/dL (6.4-8.2); Sodium Level 144 mmol/L (136-145); Thyroid Stim Hormone (TSH) 0.86 uIU/mL (0.358-3.74); Triglycerides 77 mg/dL; Very Low Density Lipoprotein 15 mg/dL (5-40)
== END ==
PROVIDERS: PCP Family Medicine; Referring Provider Family Medicine; Visit Provider Family Medicine
DX: K59.00 Constipation, unspecified (principal); E78.5 Hyperlipidemia, unspecified; I10 Essential (primary) hypertension
CPT/HCPCS: 36415; 80053; 80061; 84443; 85025

== ENCOUNTER → 2020-11-14 15:40 | Outpatient (CLI) | payer MEDICARE, SELFPAY ==
[2020-04-12 14:10] VITALS: BMI 24.4
[2020-11-14 15:44] LABS: Bacteria 0 SEEN /hpf (None Seen); Mucous, Urine 0 SEEN /hpf (<or=2+); White Blood Cells 0 SEEN /hpf (0-5)
[2020-11-14 19:10] LABS: Color, Urine Yellow (Yellow); Glucose, Dipstick Normal (Normal); Ketone-Dipstick Negative (Negative); Leukocyte Esterase-Dipstick Negative /ul (Negative); Nitrite-Dipstick Negative (Negative); Occult Blood-Urine 50 /ul (Negative); Protein-Dipstick Negative (Negative); Urine Bilirubin Dipstick Negative (Negative); Urine Clarity Clear (Clear); Urine Urobilinogen Normal (Normal)
[2020-11-14 19:18] LABS: Red Blood Cells-Urine 0-5 SEEN /hpf (0-5); Squamous Epithelial Cells - UA 0-5 SEEN /hpf (5-10)
== END ==
PROVIDERS: PCP Family Medicine; Visit Provider Family Medicine
DX: R35.0 Frequency of micturition (principal)
CPT/HCPCS: 81001; 87086; 87088

== ENCOUNTER → 2020-12-05 08:00 | Outpatient (CLI) | payer MEDICARE, MEDICAID, SELFPAY ==
[2020-04-12 14:10] VITALS: BMI 24.4
--- NOTE | 2020-12-05 08:12 | CT_ITS ---
STUDY: CT ABDOMEN AND PELVIS WITH AND WITHOUT CONTRAST REASON FOR EXAM: Female, 70 years old. LT FLANK PAIN X 1 MON, MICROSCOPIC HEMATURIA -- HX-KIDNEY STONES -- SURG-APPY,HYST RADIATION DOSAGE (If Supplied By Facility): CTDIvol = ( 19.16 ) mGy, DLP = ( 2085.82 ) mGycm TECHNIQUE: Transaxial images were obtained from the dome of the diaphragm to the symphysis pubis without oral contrast. IV 100mL Isovue-300 was administered. Sagittal and coronal images were reconstructed. Individualized dose optimization techniques were used for this CT. COMPARISON: Comparison is made with prior study dated 04/19/2020. FINDINGS: The visualized lung bases are unremarkable. The visualized portions of the heart are within normal limits. Normal liver. Normal gallbladder and extrahepatic biliary system. Normal spleen. Normal pancreas. Normal bilateral adrenal glands. Normal right kidney. There is a 4.1 mm calculus in the upper pole of the left kidney. Normal visualized stomach. Normal small intestine. There are multiple colonic diverticula consistent with diverticulosis. The patient is status post appendectomy. There is diffuse atherosclerotic calcification of the abdominal aorta, without a demonstrated aneurysm. Normal inferior vena cava. Normal retroperitoneum. Normal urinary bladder. There is absence of the uterus consistent with a prior hysterectomy. There is a small umbilical hernia containing fat. Remote compression fractures of the T11 and L2 vertebrae. Remote deformity of the right superior and inferior pubic rami. CT/CT Abd/Pelvis W/WO Contrast IMPRESSION: 4.1 mm calculus in the upper pole of the left kidney. No obstructive uropathy is seen. Sigmoid diverticulosis. Electronically Signed: Juan Carlos Laguna MD at 10:09 EST , Service support ,
[2020-12-05 08:31] LABS: CREATININE FINGERSTICK 1.2 mg/dL (0.55-1.02)
== END ==
PROVIDERS: PCP Family Medicine; Referring Provider Urology; Visit Provider Urology
DX: R31.21 Asymptomatic microscopic hematuria (principal); R10.9 Unspecified abdominal pain; Z87.442 Personal history of urinary calculi
CPT/HCPCS: 74178; Q9967

== ENCOUNTER → 2020-12-29 13:22 | Outpatient (CLI) | payer MEDICARE, MEDICAID, SELFPAY ==
[2020-04-12 14:10] VITALS: BMI 24.4
== END ==
PROVIDERS: PCP Family Medicine; Referring Provider Urology; Visit Provider Urology
DX: N39.0 Urinary tract infection, site not specified (principal)
CPT/HCPCS: 87086; 87088

== ENCOUNTER 2021-01-03 05:31 | Day surgery (SDC) | payer MEDICARE, MEDICAID, SELFPAY ==
[2020-04-12 14:10] VITALS: BMI 24.4
[2021-01-03 06:26] VITALS: BP 142/79; PULSE 62; RESP 16; TEMP 36.4; O2SAT 96; BMI 25.4
[2021-01-03] MEDS: Lactated Ringers 1,000 ML 100 ML IV (06:39)
[2021-01-03] MEDS: Cefazolin 2 GM in 0.9% Normal Saline 100 ML IV (07:29)
--- NOTE | 2021-01-03 07:45 | PCM.OPRPT ---
Problem List (1) Left renal stone Status: Acute (2) Urgency of micturition Status: Acute (3) Dysuria Status: Acute Report of Operation Date of Procedure: 01/03/21 Pre-Operative Diagnosis: left renal stone, urinary urgency, dysuria Post-Operative Diagnosis: same Surgery/Procedure Performed:: pelvic exam under anesthesia, cystoscopy, left renal extracorporeal shockwave lithotripsy Type of Anesthesia:: General Specimen's removed: none Description of Procedure: The patient is a 70-year-old female presented to the office with lower urinary tract symptoms and left flank pain. On evaluation with CT scan, a 5 mm upper pole left renal calculus was identified and visible on the optimization consultant film. After discussing the risks, benefits and alternatives including the risk of COVID-19, she decided to proceed with surgical intervention. The decision was made to perform her cystoscopy and pelvic examination concurrently with her surgical procedure. Informed consent was obtained. The patient was taken to the operating room and placed on the operating room table. Anesthesia monitored the head, neck, airway, IV access and vital signs throughout the case. Once anesthesia was appropriately administered the patient was placed into dorsal lithotomy position and was prepped and draped in usual sterile fashion. A pelvic examination revealed a lip of scar tissue at the perineal body covering the posterior aspect of the introitus. There is no pelvic organ prolapse. There is moderate vaginal atrophy. There are no trigger points identified. There is no stool in the rectal vault. At this time the cystoscope was inserted through the urethra under direct visualization into the urinary bladder. The bladder mucosa was visualized in its entirety. The ureteral orifices were identified in the correct anatomic position the area of the trigone. There were no areas of erythema, mass, foreign body or ulceration identified. At this time the cystoscope was removed and the patient was repositioned on the lithotripter table. The stone was identified in the left upper pole approximately 5 mm in size. Shocks were applied to the stone, and the patient developed ectopy requiring gating. The stone appeared to be well fragmented at 1500 shocks, and the decision was made to end the procedure. The patient was then awakened and taken to the recovery room in good condition. There were no complications during this procedure. Grafts/Implants Used: none - Complications none - Admit VTE Documentation VTE Present on Admission: Yes VTE Mechan Device Prophylaxis: SCD's VTE Pharm Prophylaxis ordered?: No Reason prophylaxis not ordered:: Treatment Not Indicated
--- NOTE | 2021-01-03 07:53 | PCM.DC.URO ---
Discharge Diet: No Restrictions Discharge Activity: May Shower May resume sexual activity in: No Restrictions Call your doctor if you observe: Fever of 101 or Higher, Inability to urinate, Inability to have a bowel movement Allergies/Adverse Reactions: Allergies watermelon Allergy (Intermediate, Verified 12/20/20 13:25) Hives Medications to take at Discharge alendronate 70 mg tablet 70 mg PO QWEEK 04/13/19 hydroxyzine HCl 25 mg tablet 25 mg PO Q8H PRN tab 04/13/19 meloxicam 15 mg tablet 15 mg PO DAILY 04/13/19 Albuterol IH (ProAir) [Proair Hfa] 1 puff IH PRN PRN 04/17/19 Hydrocodone/Acetaminophen [Hydrocodone-Acetamin 5-325 mg] 1 tab PO Q6H PRN 04/17/19 isosorbide mononitrate 30 mg tablet,extended release 24 hr 30 mg PO DAILY #30 tab 04/22/19 lisinopril 20 mg tablet 20 mg PO DAILY #90 tab 04/22/19 amlodipine 5 mg tablet 5 mg PO DAILY tab 04/12/20 latanoprost 0.005 % eye drops 1 ml EACH EYE BID 04/12/20 atenolol 25 mg tablet 25 mg PO DAILY #90 tab 04/25/20 atorvastatin 10 mg tablet 10 mg PO QHS #90 tab 04/25/20 Cephalexin [Keflex] 500 mg PO Q12 3 Days #6 cap 01/03/21 Oxycodone HCl/Acetaminophen [Percocet 5/325] 2 tab PO Q8H PRN PRN 7 Days #20 tab 01/03/21 The following prescriptions were given: Cephalexin [Keflex] 500 mg PO Q12 3 Days #6 cap Transmission Status: Pending to [facility] Oxycodone HCl/Acetaminophen [Percocet 5/325] 2 tab PO Q8H PRN PRN 7 Days #20 tab PRN Reason: Pain Transmission Status: Sent to [facility] Primary Care Physician: Benji Goff MD [Primary Care Provider] - Test Results: Test results from this visit will be discussed in further detail at your follow-up appointment, if applicable. Please Follow Up With: Layne Castro MD When: appt in the office in 2 weeks with ANTIONETTE Proposed Discharge Date: 01/03/21
[2021-01-03 08:27] VITALS: BP 142/79; BP 153/66; PULSE 63; RESP 16; TEMP 36.1; O2SAT 98
[2021-01-03 08:30] VITALS: BP 142/79; BP 156/74; PULSE 61; RESP 16; O2SAT 96
[2021-01-03 08:45] VITALS: BP 142/79; BP 151/69; PULSE 60; RESP 16; O2SAT 93
[2021-01-03 09:00] VITALS: BP 142/79; BP 152/77; PULSE 61; RESP 16; TEMP 36.3; O2SAT 92
[2021-01-03 09:59] VITALS: BP 142/79; BP 150/74; PULSE 62; RESP 16; TEMP 36.2; O2SAT 94
== END 2021-01-03 10:00 | disposition home or self-care (01) ==
LOC: SDC 05:33 → AC 05:35
PROVIDERS: PCP Family Medicine; Referring Provider Urology; Visit Provider Urology
PROC: (CPT 50590; principal; 2021-01-03 07:20)
DX: N20.0 Calculus of kidney (principal); Z20.828 Contact with and (suspected) exposure to other viral communicable diseases; E78.00 Pure hypercholesterolemia, unspecified; G25.81 Restless legs syndrome; Z79.899 Other long term (current) drug therapy; I10 Essential (primary) hypertension; J45.909 Unspecified asthma, uncomplicated; F17.200 Nicotine dependence, unspecified, uncomplicated
CPT/HCPCS: 00873; 50590; 57410; 87426; C9803; J7120; J2405

== ENCOUNTER → 2021-01-24 11:54 | Outpatient (CLI) | payer MEDICARE, MEDICAID, SELFPAY ==
[2021-01-03 06:26] VITALS: BMI 25.4
--- NOTE | 2021-01-24 14:07 | PFTCOMP_ITS ---
COMPLETE PULMONARY FUNCTION TEST INTERPRETATION Brief HPI: Patient is a 71 year old female, currently under the care of Dr. Goff, who presents to [facility] for complete pulmonary function tests secondary to diagnosis of dyspnea. Respiratory therapist reports good effort and reproducible results. Interpretation: Forced expiration spirometry shows a mild large airways obstructive ventilatory defect with an FEV1 of 78% predicted. There is a significant bronchodilator response in FVC and FEV1 by strict ATS criteria. Spirograms are of good quality and plateau slowly, indicating slowly emptying areas of the lungs. The respiratory flow volume loop shows decreased expiratory flow rates at all lung volumes consistent with airway obstruction. Lung volumes by body plethysmography show a normal total lung capacity at 4.97 L, 108% predicted. All other lung volumes are within normal limits. Diffusion capacity by carbon monoxide is decreased at 58% predicted. The airway resistance is elevated. No previous pulmonary function tests were available for review. Impression: Partially reversible mild large airways obstructive ventilatory defect with a disproportionate reduction diffusing capacity, in a pattern consistent with COPD/asthma overlap
== END ==
PROVIDERS: PCP Family Medicine; Referring Provider Family Medicine; Visit Provider Family Medicine
DX: R06.02 Shortness of breath (principal)
CPT/HCPCS: 94060; 94726; 94729

== ENCOUNTER → 2021-04-22 09:27 | Outpatient (CLI) | payer MEDICARE, MEDICAID, SELFPAY ==
--- NOTE | 2021-04-22 09:28 | CT_ITS ---
STUDY: CT ABDOMEN AND PELVIS WITHOUT CONTRAST REASON FOR EXAM: Female, 71 years old. Left flank pain RADIATION DOSAGE (If Supplied By Facility): CTDIvol = ( 7.08 ) mGy, DLP = ( 345.11 ) mGycm TECHNIQUE: Transaxial images were obtained from the dome of the diaphragm to the symphysis pubis without oral contrast, and without intravenous contrast. Sagittal and coronal images were reconstructed. Individualized dose optimization techniques were used for this CT. COMPARISON: 12/05/2020 FINDINGS: There are chronic interstitial fibrotic changes of the lung bases. The visualized portions of the heart are within normal limits. Normal liver. Normal gallbladder and extrahepatic biliary system. Normal spleen. Normal pancreas. Normal bilateral adrenal glands. Normal right kidney. Normal left kidney. Normal visualized stomach. Normal small intestine. Retained stool noted throughout the colon. Scattered sigmoid diverticular disease without acute diverticulitis. There is non-visualization of the appendix. There is diffuse atherosclerotic calcification of the abdominal aorta, without a demonstrated aneurysm. Normal inferior vena cava. Normal retroperitoneum. Normal urinary bladder. There is absence of the uterus consistent with a prior hysterectomy. Normal abdominal wall. Degenerative bony changes noted in the lumbar spine and pelvis. Stable compression fractures at T11 and L2. Old healed inferior pubic rami fractures CT/Abdomen/Pelvis without Cont IMPRESSION: No obstructive uropathy No free peritoneal fluid, air, or suspicious adenopathy Retained stool throughout the colon with scattered sigmoid diverticulosis Degenerative bony changes with stable compression fractures at T11 and L2 Electronically Signed: Dontrell Joy MD at 8:49 EDT , Service support ,
== END ==
PROVIDERS: PCP Family Medicine; Referring Provider Urology; Visit Provider Urology
DX: N20.0 Calculus of kidney (principal)
CPT/HCPCS: 74176

== ENCOUNTER 2021-04-28 08:09 | Outpatient (RCR) | payer MEDICARE, MEDICAID, SELFPAY ==
--- NOTE | 2021-04-28 10:02 | HP.PTEVAL ---
Patient's Visit Information JUAN HAWKINS is a 71 year old F referred to Physical Therapy by Dr. Benji Goff MD with a diagnosis of L knee pain. Date of Evaluation: 04/28/21 Physical Therapist: Tushar Espinosa, PT, ATC - Visit Plan Frequency: 2-3x /Week Duration: 4 Weeks Plan: L knee stretching and strengthening, core stab ex's, balance and proprio, nustep, and HEP - Subjective Pt reports she has had pain below her L knee for about 3 weeks now. Pt reports she was walking and it felt almost like her knee just twisted on her. pt reports her knee has done that again 2 times since her first episode. Pt describes it as there are two bones and one keeps flopping off of the other one. Pt reports she has not fallen from this but has come very close twice. Pt reports the pain is extremely painful when this occurs. Pt denies tingling or numbness in L LE. Pt also denies sleep difficulty at this time. Pt reports she doesnt have stairs at home, but notes when she has to negotiate them, she has to go up one step at a time. No Dx tests at this time. 0/10 pain at rest, 10/10 pain when her knee pops out - Pain L knee Pain Intensity (Out of 10): 0 Pain Intensity Range: 10 - Objective Neuro: B LE sensation is WNL to lgiht touch. B achilles reflex= 2/3. Palpation: Pt is point tender distal to her L knee joint. No obvious deformity. Very painful along lateral joint line as well. ROM: R knee 0-135, L knee 0-120 degrees. MMT: R knee is 5/5. L knee is 3/5 and very painful. Special tests: severe pain with compression and distaction. Girth at joint line: B knees 33 cm - Goals Goal 1:: Decrease L knee pain x 50% to aid with ambulation Goal Time Frame: 4-6 Weeks Goal 2:: Increase L knee strength x 1 grade to aid with stair negotiation Goal Time Frame: 4-6 Weeks Goal 3:: Increase L knee flex ROM x 10 degrees to aid with a more normalized gait pattern Goal Time Frame: 4-6 Weeks Goal 4:: I with HEP Goal Time Frame: 4-6 Weeks - Rehabilitation Potential Physical Therapy Diagnosis: Pt has L knee weakness, pain, and limited ROM secondary to degenerative changes in L knee Rehabilitation Potential: Good - Anticipated Interventions Patient/Client Instruction: Educate patient on: Condition, Plan of Care For the Purpose of:: To improve self management Therapeutic Exercise to Include: Strength training, Endurance training, Balance training, Flexibilty training, Dynamic Lumbar Stabilization For the Purpose of:: To decrease pain, To increase ROM, To improve muscle performance and motor function Cryotherapy (ice pack, ice massage): Yes For the Purpose of:: To decrease pain Thank you for the opportunity to evaluate your patient. For Medicare and Medicare HMO plans, please review the plan of care and approve it. It will need to be FAXED BACK to us at [phone] for Medicare purposes. For Medicare only, by signing this I certify the plan of care. Please let me know if there are questions or concerns regarding this plan of care. Physician Signature: Date:
== END 2021-04-28 19:00 | disposition home or self-care (01) ==
LOC: PT 08:09
PROVIDERS: PCP Family Medicine; Referring Provider Family Medicine; Visit Provider Family Medicine
DX: M25.562 Pain in left knee (principal); M54.5 Low back pain
CPT/HCPCS: 97161

== ENCOUNTER → 2021-05-02 08:43 | Outpatient (CLI) | payer MEDICARE, MEDICAID, SELFPAY ==
--- NOTE | 2021-05-02 08:45 | RAD_ITS ---
STUDY: X-RAY - LEFT KNEE REASON FOR EXAM: Female, 71 years old. Pain. TECHNIQUE: 4 view(s) of the knee. COMPARISON: None. FINDINGS: Normal visualized distal femur. Normal visualized proximal tibia and fibula. Normal proximal tibiofibular articulation. There is mild degenerative arthrosis of the medial femorotibial compartment. Calcification of the medial and lateral menisci in keeping with chondrocalcinosis. Normal lateral femorotibial compartment. Normal patellofemoral articulation. The soft tissue structures are unremarkable. RAD/Knee 4 or More Views IMPRESSION: Degenerative arthrosis. Calcification of the medial and lateral menisci in keeping with chondrocalcinosis. Electronically Signed: Juan Carlos Laguna MD at 14:30 EDT , Service support ,
== END ==
PROVIDERS: PCP Family Medicine; Referring Provider Family Medicine; Visit Provider Family Medicine
DX: M25.562 Pain in left knee (principal)
CPT/HCPCS: 73564

== ENCOUNTER → 2021-06-29 07:56 | Outpatient (CLI) | payer MEDICARE, MEDICAID, SELFPAY ==
--- NOTE | 2021-06-29 08:20 | BD_ITS ---
STUDY: DUAL ENERGY X-RAY ABSORPTIOMETRY / DXA REASON FOR EXAM: Female, 71 years old. [id number]. Patient is postmenopausal. TECHNIQUE: Bone Mineral Density (BMD) measurements of lumbar spine and bilateral hips were obtained. COMPARISON: Comparison is made with prior examination dated 06/10/2018. FINDINGS: Lumbar Spine (L1-L4): g/cm2 (0.720) / T-score (-2.7) / Z-score (-0.5) Findings are suggestive of osteoporosis with a high fracture risk. Left Femur Total: g/cm2 (0.602) / T-score (-2.8) / Z-score (-1.1) Left Femoral Neck: g/cm2 (0.524) / T-score (-2.9) / Z-score (-1.0) Right Femur Total: g/cm2 (0.639) / T-score (-2.5) / Z-score (-0.8) Right Femoral Neck: g/cm2 (0.548) / T-score (-2.7) / Z-score (-0.8) The T-Scores on the most recent prior examination were: Lumbar Spine (L1-L4): There has been worsening of bone density since the previous examination. Left Femur Total: which represents an improvement of 0.9%. Right Femur Total: which represents a worsening of 0.2%. BD/Dexa Bone Density Study IMPRESSION: The patient is considered osteoporotic as outlined below according to World Norman Organization (WHO) criteria with a high fracture risk. There has been worsening of bone density since the previous examination. Reference Information: The T-score is the number of standard deviations above or below the standard which is normal for young adults at their peak bone mineral density. The World Health Organization (WHO) interprets the T-scores as follows: Above -1 Normal bone density Between -1 and -2.5 Osteopenia Equal to / or below -2.5 Osteoporosis As a practical clinical guideline, osteopenia may be graded as follows: Mild -1 through -1.5 Moderate -1.6 through -2.0 Severe -2.1 through -2.4 The Z-score is the number of standard deviations above or below age-matched controls. A Z-score of less than -1.5 would be considered abnormal. References: 1. NIH Osteoporosis and Related Bone Diseases www osteo.org 2. International Society for Clinical Densitometry www iscd.org 3. National Osteoporosis Foundation www nof.org Electronically Signed: Juan Carlos Laguna MD at 14:59 EDT , Service support ,
== END ==
PROVIDERS: PCP Family Medicine; Referring Provider Family Medicine; Visit Provider Family Medicine
DX: Z78.0 Asymptomatic menopausal state (principal)
CPT/HCPCS: 77080

== ENCOUNTER → 2021-08-30 09:58 | Outpatient (CLI) | payer MEDICARE, MEDICAID, SELFPAY ==
--- NOTE | 2021-08-30 10:00 | RAD_ITS ---
STUDY: X-RAY - BILATERAL RIBS WITH CHEST REASON FOR EXAM: Female, 71 years old. Rib pain. TECHNIQUE - RIBS: 4 view(s) of the ribs. TECHNIQUE - CHEST: Single frontal view of the chest. COMPARISON: Chest x-ray dated 12/23/2014. FINDINGS - RIBS : Diffuse osteopenia. Minimally displaced fracture of the left fourth rib laterally. Minimally displaced fractures of the right fourth and fifth ribs. FINDINGS - CHEST: Mild hyperexpansion unchanged. There is no demonstrated pleural abnormality. Stable cardiomegaly with aortic tortuosity and calcification. Normal mediastinum and rosamaria. Normal visualized pulmonary arteries. Normal visualized aortic arch and descending thoracic aorta. Normal visualized thoracic spine. Normal visualized ribs, clavicles, and shoulders. There is no demonstrated abnormality of the visualized soft tissue structures of the upper abdomen. RAD/Ribs Jorge Min 4V w/PA Chest IMPRESSION: RIBS: Osteopenia with right fourth and fifth rib fractures and left fourth rib fracture laterally. CHEST: Stable hyperexpansion with cardiomegaly. Electronically Signed: Sebastián Manrique MD at 10:32 EDT , Service support ,
== END ==
PROVIDERS: PCP Family Medicine; Referring Provider Family Medicine; Visit Provider Family Medicine
DX: R07.81 Pleurodynia (principal)
CPT/HCPCS: 71111

== ENCOUNTER 2021-10-31 07:15 | Outpatient (CLI) | payer MEDICARE, MEDICAID, SELFPAY ==
--- NOTE | 2021-10-31 07:18 | BI_ITS ---
MAMMOGRAPHY - BILATERAL SCREENING REASON FOR EXAM: Female, 71 years old. Routine annual screening examination. PERTINENT HISTORY: Non-contributory. Bilateral breast discharge. TECHNIQUE: Digital bilateral breast frandy (3D mammographic acquisition) in the CC and MLO projections. 2-D mediolateral oblique (MLO) and craniocaudad (CC) views of both breasts were obtained. CAD: Full Field Digital Mammography with Computer Added Detection was performed. COMPARISON: Comparison is made with prior study dated 10/20/2012 and 08/03/2010. FINDINGS: Breast Composition: The breasts are almost entirely fatty. There are no dominant masses or suspicious calcifications. No other significant abnormalities are identified. There has been no significant change since the prior study. BI/SCRN MAMM (CAD)W/FRANDY BILAT IMPRESSION: Stable bilateral screening mammogram. With the patient''s history of bilateral breast discharge, correlation with ultrasound of the retroareolar regions is recommended. ASSESSMENT CATEGORY: BIRADS Category 0: Incomplete. Need additional imaging evaluation. A letter regarding these results will be sent to the patient by the facility within 30 days. Approximately 10% of breast cancers are not detected by mammography. A normal mammogram should not delay biopsy of a clinically suspicious abnormality. [id number] Electronically Signed: Juan Carlos Laguna MD at 8:42 EST , Service support ,
== END 2021-10-31 23:59 | disposition short-term general hospital (02) ==
LOC: OPBI 07:17
PROVIDERS: PCP Family Medicine; Visit Provider Nurse Practitioner Family
DX: Z12.31 Encounter for screening mammogram for malignant neoplasm of breast (principal)
CPT/HCPCS: 77063; 77067

== ENCOUNTER 2021-11-08 08:01 | Outpatient (CLI) | payer MEDICARE, MEDICAID, SELFPAY ==
--- NOTE | 2021-11-08 08:02 | US_ITS ---
STUDY: ULTRASOUND BREAST - RIGHT REASON FOR EXAM: Female, 71 years old. Nipple discharge. TECHNIQUE: Axial and longitudinal images of the RIGHT breast were performed with a high resolution ultrasound transducer. # OF IMAGES: 32 COMPARISON: Comparison is made with prior mammogram dated 10/31/2011. FINDINGS: RIGHT Breast: The retroareolar region of the right breast was examined by ultrasound. No sonographic abnormality is seen. IMPRESSION: No sonographic abnormality is seen. ASSESSMENT CATEGORY: BIRADS Category 1: Negative. A letter regarding these results will be sent to the patient by the facility within 30 days. Electronically Signed: Juan Carlos Laguna MD at 13:52 EST , Service support , STUDY: ULTRASOUND BREAST - LEFT REASON FOR EXAM: Female, 71 years old. Left nipple discharge TECHNIQUE: Axial and longitudinal images of the LEFT breast were performed with a high resolution ultrasound transducer. # OF IMAGES: 32 COMPARISON: Comparison is made with prior mammogram dated 10/31/2021. FINDINGS: LEFT Breast: The retroareolar region of the left breast was examined by ultrasound. No sonographic abnormality is seen. US/Breast Limited Unilateral IMPRESSION: No sonographic abnormality is seen. ASSESSMENT CATEGORY: BIRADS Category 1: Negative. A letter regarding these results will be sent to the patient by the facility within 30 days. Electronically Signed: Juan Carlos Laguna MD at 13:53 EST , Service support ,
== END 2021-11-08 23:59 | disposition short-term general hospital (02) ==
LOC: OPUS 08:01
PROVIDERS: PCP Family Medicine; Referring Provider Nurse Practitioner Family; Visit Provider Nurse Practitioner Family
DX: N64.52 Nipple discharge (principal)
CPT/HCPCS: 76642

== ENCOUNTER 2021-12-13 14:31 | Outpatient (CLI) | payer MEDICARE, MEDICAID, SELFPAY ==
[2021-12-13 18:41] LABS: AST(SGOT) 22 U/L (15-37); Alanine Aminotransfer ALT/SGPT 26 U/L (13-56); Albumin, Serum 3.3 g/dL (3.2-5.0); Alkaline Phosphatase 110 U/L (45-117); Anion Gap 6 (5-15); BUN 15 mg/dL (7-18); Calcium,Total 9.1 mg/dL (8.5-10.1); Chloride 104 mmol/L (98-107); Creatinine, Serum 0.72 mg/dL (0.55-1.02); EST Glomerular Filtration Rate 85 mL/min (>60); Est Glom Filt Rate - Afr Amer 103 mL/min (>60); Globulin 3.3 g/dL (2.2-4.2); Glucose 100 mg/dL (74-106); Potassium 4.2 mmol/L (3.5-5.1); Protein, Total 6.6 g/dL (6.4-8.2); Sodium Level 139 mmol/L (136-145)
== END 2021-12-13 23:59 | disposition home or self-care (01) ==
PROVIDERS: PCP Family Medicine; Referring Provider Family Medicine; Visit Provider Nurse Practitioner Family
DX: I10 Essential (primary) hypertension (principal)
CPT/HCPCS: 36415; 80053

== ENCOUNTER 2022-02-22 11:20 | Emergency (ER) | payer MEDICARE, MEDICAID, SELFPAY ==
[2022-02-22 11:20] VITALS: BP 144/63; PULSE 57; RESP 16; TEMP 36.4; O2SAT 98; BMI 26.2
--- NOTE | 2022-02-22 11:51 | EKG12_ITS ---
Test Reason : Blood Pressure : / mmHG Vent. Rate : 059 BPM Atrial Rate : 059 BPM P-R Int : 150 ms QRS Dur : 090 ms QT Int : 418 ms P-R-T Axes : 032 021 184 degrees QTc Int : [address] & T wave abnormality, consider anterior-lateral ischemia Abnormal ECG Confirmed by DAMARIS EATON, ALETHEA ([id number]), editorial intern JACQUE RINCON ([id number]) on 02/23/2022 10:30:31 AM Referred By: Confirmed By:ALETHEA OCAMPO MD
--- NOTE | 2022-02-22 11:52 | EDS_ITS ---
HPI History of Present Illness Chief Complaint: Chest Pain Detail of Chief Complaint: Epigastric/chest pain, palpitation Informant: patient Onset/Context/Timing Onset: Days Context: Gradual Onset Current Severity: Mild Maximum Severity: Moderate Narrative Narrative: Patient reports intermittent palpitations with epigastric pressure ongoing for years. She has a history of aortic sclerosis. Patient states over the past 2 days symptoms have gotten significantly worse. The fluttering will last anywhere from 10 minutes to an hour or slightly more. With this she gets dizzy and has chest pressure. She was seen by her PCP today. EKG in the office revealed lateral T wave inversions and she was sent to the ER for further evaluation. [facility] Medical History (Updated 02/22/22 @ 15:[address] Naz Driscoll MD) Asthma Benign neoplasm of colon Chronic constipation Essential hypertension Hyperlipidemia Nicotine dependence Home Medications alendronate 70 mg tablet 70 mg PO QWEEK 04/13/19 [History Last Taken Unknown] hydroxyzine HCl 25 mg tablet 25 mg PO Q8H PRN tab 04/13/19 [History Last Taken Unknown] meloxicam 15 mg tablet 15 mg PO DAILY 04/13/19 [History Last Taken Unknown] albuterol sulfate 1 puff IH PRN PRN 04/17/19 [History Last Taken Unknown] hydrocodone-acetaminophen 1 tab PO Q6H PRN 04/17/19 [History Last Taken Unknown] isosorbide mononitrate 30 mg tablet,extended release 24 hr 30 mg PO DAILY #30 tab 04/22/19 [History Last Taken Unknown] lisinopril 20 mg tablet 20 mg PO DAILY #90 tab 04/22/19 [Rx Last Taken Unknown] amlodipine 5 mg tablet 5 mg PO DAILY tab 04/12/20 [History Last Taken Unknown] latanoprost 0.005 % eye drops 1 ml EACH EYE BID 04/12/20 [History Last Taken Unknown] atenolol 25 mg tablet 25 mg PO DAILY #90 tab 04/17/21 [Rx Last Taken Unknown] atorvastatin 10 mg tablet 10 mg PO QHS #90 tab 04/17/21 [Rx Last Taken Unknown] Allergy/AdvReac Type Severity Reaction Status Date / Time watermelon Allergy Intermediate Hives Verified 02/22/22 11:22 Family History Father Cancer spinal Mother Alzheimer's disease Brother Pacemaker Surgical History History of amputation of finger of right hand History of appendectomy History of breast surgery History of cataract extraction History of D&C History of hysterectomy History of toe surgery History of tonsillectomy Social History Smoking Status: Former smoker how long ago did patient quit smokin alcohol intake: never substance use type: does not use ROS ROS ED Constitutional Constitutional ED: Denies chills or fever(s) Eyes Eyes: Denies change in vision ENT ENT ED: Denies sore throat Cardiovascular Cardiovascular: Reports chest pain Respiratory/Chest Respiratory/Chest: Reports dyspnea; Denies cough Gastrointestinal Gastrointestinal: Denies abdominal pain, diarrhea, nausea or vomiting Genitourinary Genitourinary ED: Denies dysuria Musculoskeletal Musculoskeletal: Denies back pain or neck pain Integumentary Denies rash Neurologic Neurologic: Denies headache(s) or weakness Allergic/Immunologic Allergic/Immunologic ED: Denies urticaria EXAM Physical Exam Const Vital Signs: 02/22/22 11:20 02/22/22 11:56 02/22/22 11:57 Temperature 97.6 F L Temperature Source Temporal Pulse Rate 57 L Respiratory Rate 16 Respiratory Effort Normal Non-Labored Blood Pressure 144/63 H Blood Pressure Mean 90 Pulse Ox 98 93 Oxygen Delivery Method Room Air Room Air 02/22/22 12:01 02/22/22 12:12 02/22/22 13:15 Temperature Temperature Source Pulse Rate 58 L 56 L 61 Respiratory Rate 20 H 15 17 Respiratory Effort Blood Pressure 196/78 H 178/81 H Blood Pressure Mean 117 113 Pulse Ox 93 94 91 Oxygen Delivery Method Room Air Room Air Room Air 02/22/22 14:50 Temperature Temperature Source Pulse Rate 60 Respiratory Rate 12 Respiratory Effort Blood Pressure 179/77 H Blood Pressure Mean 111 Pulse Ox 98 Oxygen Delivery Method Room Air Positive well nourished and well developed General Appearance ED: well developed HEENT Reports moist mucous membranes Eyes PERRL and EOMs intact bilaterally Neck supple Chest Wall inspection of chest normal and palpation of chest normal Resp normal respiratory effort Resp Narrative: Mild expiratory wheezes bilaterally. Cardio regular rate and regular rhythm GI Auscultation: hypoactive bowel sounds Palpation: soft and tender epigastric; Negative for guarding or rebound tenderness present Extremity normal to inspection Neuro oriented x3 Sensorium / Orientation: alert Psych mental status grossly normal Skin no rashes or lesions noted MDM MDM MDM Narrative Medical decision making narrative: Patient given aspirin as well as a DuoNeb treatment here. Lab work, EKG, chest x-ray obtained. Lab Data Attestation: I reviewed the patient's lab results. Labs: Laboratory Results - last 24 hr 02/22/22 02/22/22 02/22/22 11:30 11:30 11:30 WBC 8.8 RBC 4.89 Hgb 15.0 Hct 46.3 MCV 94.7 MCH 30.7 MCHC 32.4 RDW Std Deviation 46.9 H RDW Coeff of Eloisa 13.4 Plt Count 255 MPV 10.5 Immature Gran % (Auto) 0.500 Neut % (Auto) 65.8 Lymph % (Auto) 22.7 [place] % (Auto) 8.2 Eos % (Auto) 2.1 Baso % (Auto) 0.7 Absolute Neuts (auto) 5.8 Absolute Lymphs (auto) 1.99 Nucleated RBC % 0 Sodium 142 Potassium 3.6 Chloride 109 H Carbon Dioxide 28.0 Anion Gap 5 BUN 13 Creatinine 0.70 Estim Creat Clear Calc 39.63 Est GFR (MDRD) Af Amer 105 Est GFR (MDRD) Non-Af 87 BUN/Creatinine Ratio 18.5 Glucose 89 Calcium 9.2 Total Bilirubin 0.50 Direct Bilirubin 0.13 AST 28 ALT 36 Alkaline Phosphatase 105 Troponin I High Sens Total Protein 7.2 Albumin 3.5 Globulin 3.7 Lipase 99 02/22/22 02/22/22 11:30 14:00 WBC RBC Hgb Hct MCV MCH MCHC RDW Std Deviation RDW Coeff of Eloisa Plt Count MPV Immature Gran % (Auto) Neut % (Auto) Lymph % (Auto) [place] % (Auto) Eos % (Auto) Baso % (Auto) Absolute Neuts (auto) Absolute Lymphs (auto) Nucleated RBC % Sodium Potassium Chloride Carbon Dioxide Anion Gap BUN Creatinine Estim Creat Clear Calc Est GFR (MDRD) Af Amer Est GFR (MDRD) Non-Af BUN/Creatinine Ratio Glucose Calcium Total Bilirubin Direct Bilirubin AST ALT Alkaline Phosphatase Troponin I High Sens 24 19 Total Protein Albumin Globulin Lipase Radiography Chest X-Ray - ED: 1 View, Read by ED Physician and Chronic Changes Diagnostic Testing: Clinical Impression(s) from Imaging Studies Chest X-Ray 02/22/22 12:20 IMPRESSION: Hyperinflation. Possible 1 cm nodular density in the right lower lobe. Correlation with ultrasound is recommended. Electronically Signed: Juan Carlos Laguna MD at 12:45 EDT , EKG Initial EKG: Attestation: I personally reviewed and interpreted this EKG as follows: Interpretation: Sinus Bradycardia (Sinus bradycardia at 59 bpm. Anterolateral T wave inversion. This was present on her prior EKG from December 2019 as well.) Treatment and Re-Evaluation Narrative: Patient has had no recurrent pain or palpitations while in the emergency room. Lab reveals normal CBC, chemistry studies, LFTs, lipase. Troponin is 24 and 19 on repeat. I spoke with Dr. Altman after reviewing the patient's prior cardiology notes. In March 2020 patient was seen by Dr. Serrano. He felt the patient should have a follow-up Holter monitor and echocardiogram g iven her aortic sclerosis and symptoms. Patient reports this was never scheduled and never performed. She did have a stress test in February 2020 that was unremarkable for ischemia. Dr. Altman feels that with her not having symptoms at this time and 2 negative troponins she can be seen in the office for follow-up to schedule these tests. Patient will obviously be given return instructions if her symptoms are to worsen or any new concerns arise. Discharge Plan Triage Chief Complaint: Chest Pain ED Provider: Naz Driscoll Dx/Rx/DC Orders Clinical Impression: Palpitations, Chest pain Instructions: ED Chest Pain, Uncertain Cause, ED Palpitations Prescriptions: No Action isosorbide mononitrate 30 mg tablet extended release 24 hr 30 mg PO DAILY Qty: 30 RF: 0 lisinopril 20 mg tablet 20 mg PO DAILY Qty: 90 RF: 6 alendronate 70 mg tablet 70 mg PO QWEEK RF: 0 meloxicam 15 mg tablet 15 mg PO DAILY RF: 0 hydroxyzine HCl 25 mg tablet 25 mg PO Q8H PRN (Reason: antihistamine ) RF: 0 amlodipine 5 mg tablet 5 mg PO DAILY RF: 0 latanoprost 0.005 % drops 1 ml EACH EYE BID RF: 0 hydrocodone-acetaminophen 1 EACH tablet 1 tab PO Q6H PRN (Reason: Pain) RF: 0 albuterol sulfate 1 PUFF inhaler 1 puff IH PRN PRN (Reason: Sob &/Or Wheezing) RF: 0 atorvastatin 10 mg tablet 10 mg PO QHS Qty: 90 RF: 3 atenolol 25 mg tablet 25 mg PO DAILY Qty: 90 RF: 3 Primary Care Provider: Benji Monroy Referrals: Salo Serrano MD [STAFF PHYSICIAN] - As soon as possible Benji Monroy MD [Primary Care Provider] - Disposition Disposition: Home, Self Care
[2022-02-22 11:56] VITALS: O2SAT 93
[2022-02-22 12:01] VITALS: BP 196/78; PULSE 58; RESP 20; O2SAT 93
[2022-02-22 12:04] LABS: Absolute Lymphocyte Count 1.99 X10^3/uL (0.83-4.51); Absolute Neutrophil Count 5.8 X10^3/uL (2.0-7.7); Basophil# 0.06 X10^3/uL; Basophil% 0.7 % (0-1); Eosinophil# 0.18 X10^3/uL; Eosinophils% 2.1 % (0-5); Hematocrit 46.3 % (37-47); Lymphocyte # 1.99 X10^3/ul (0.83-4.51); Lymphocyte % 22.7 % (19-41); Mean Corp Hgb Conc 32.4 g/dL (32-36); Mean Corpuscular Hgb 30.7 pg (27.0-32.0); Mean Corpuscular Volume 94.7 fL (81-99); Mean Platelet Vol. 10.5 fl (6.2-12.0); Monocyte# 0.72 X10^3/uL; Monocyte% 8.2 % (0-10); NRBC Flagged by Analyzer 0 % (0-5); Neutrophil # 5.79 X10^3/uL (2.7-7.7); Neutrophil % 65.8 % (47-70); Platelet Count 255 K/mm3 (150-450); RBC Distribution Width CV 13.4 % (11.6-14.6); RBC Distribution Width SD 46.9 fl (35.1-43.9); Red Blood Count 4.89 M/mm3 (4.2-5.4); White Blood Count 8.8 K/mm3 (4.4-11.0)
[2022-02-22] MEDS: Aspirin 81 MG TAB.CHEW 324 MG PO (12:05)
[2022-02-22] MEDS: 0.9% Normal Saline 1,000 ML 150 ML IV (12:07)
[2022-02-22] MEDS: Ipratropium/Albuterol Sulfate 3 ML AMPUL.NEB INHALATION (12:08)
[2022-02-22 12:12] VITALS: PULSE 56; RESP 14; RESP 15; O2SAT 94
[2022-02-22 12:18] LABS: Anion Gap 5 (5-15); BUN 13 mg/dL (7-18); BUN/Creat Ratio 18.5 RATIO (10-20); Calcium,Total 9.2 mg/dL (8.5-10.1); Chloride 109 mmol/L (98-107); EST Glomerular Filtration Rate 87 mL/min (>60); Est Glom Filt Rate - Afr Amer 105 mL/min (>60); Estimated Creatinine Clearance 39.63 ml/min; Glucose 89 mg/dL (74-106); Lipase 99 U/L (73-393); Potassium 3.6 mmol/L (3.5-5.1); Sodium Level 142 mmol/L (136-145)
--- NOTE | 2022-02-22 12:20 | RAD_ITS ---
STUDY: X-RAY CHEST REASON FOR EXAM: Female, 72 years old. Chest pain TECHNIQUE: Single AP portable view of the chest. COMPARISON: Comparison is made with prior examination dated 08/30/2021. FINDINGS: EKG electrodes are seen. There is hyperinflation of the lungs consistent with chronic obstructive lung disease (COPD). Compressible 1 cm nodular density in the right lower lobe. Correlation with CT scan is recommended. There is no demonstrated pleural abnormality. Normal size heart. Normal mediastinum and rosamaria. Normal visualized pulmonary arteries. There is atherosclerotic calcification of the aortic arch with tortuosity. There are degenerative changes of the visualized thoracic spine. Complete collapse of the lower dorsal vertebrae. Normal visualized ribs, clavicles, and shoulders. Questionable PEG tube in the stomach. RAD/Chest 1 View (Portable) IMPRESSION: Hyperinflation. Possible 1 cm nodular density in the right lower lobe. Correlation with ultrasound is recommended. Electronically Signed: Juan Carlos Laguna MD at 12:45 EDT ,
[2022-02-22 12:35] LABS: AST(SGOT) 28 U/L (15-37); Alanine Aminotransfer ALT/SGPT 36 U/L (13-56); Albumin, Serum 3.5 g/dL (3.2-5.0); Alkaline Phosphatase 105 U/L (45-117); Bilirubin, Direct 0.13 mg/dL (0.00-0.30); Globulin 3.7 g/dL (2.2-4.2); Protein, Total 7.2 g/dL (6.4-8.2)
[2022-02-22 13:15] VITALS: BP 178/81; PULSE 61; RESP 17; O2SAT 91
[2022-02-22 13:18] LABS: Troponin-I HS (w/2H Reflex) 24 pg/mL (3.0-54.0)
[2022-02-22 14:00] LABS: Reflex Troponin-HS? (from REC) Y
[2022-02-22 14:32] LABS: Troponin-I HS 19 pg/mL (3.0-54.0)
[2022-02-22 14:50] VITALS: BP 179/77; PULSE 60; RESP 12; O2SAT 98
== END 2022-02-22 15:22 | disposition home or self-care (01) ==
PROVIDERS: Emergency Provider Emergency Medicine; PCP Family Medicine; Visit Provider Emergency Medicine
DX: R00.2 Palpitations (principal); R07.9 Chest pain, unspecified; E78.5 Hyperlipidemia, unspecified; I10 Essential (primary) hypertension; J45.909 Unspecified asthma, uncomplicated; Z87.891 Personal history of nicotine dependence; Z79.01 Long term (current) use of anticoagulants; Z79.899 Other long term (current) drug therapy
CPT/HCPCS: 71045; 80048; 80076; 83690; 84484; 85025; 93005; 94640; 99251; 99285; J7030; A4216; G0463

== ENCOUNTER → 2022-03-21 | Outpatient (CLI) | payer MEDICARE, MEDICAID, SELFPAY ==
--- NOTE | 2022-03-21 11:58 | RAD_ITS ---
STUDY: XR Knee 3 Views 03/21/2022 4:12 PM REASON FOR EXAM: Female, 72 years old. KNEE PAIN TECHNIQUE: XR Knee 3 Views LEFT COMPARISON: None FINDINGS: Normal visualized distal femur. Normal visualized proximal tibia and fibula. Normal proximal tibiofibular articulation. Normal medial femorotibial compartment. Normal lateral femorotibial compartment. Normal patellofemoral articulation. There is calcification in the joint space which may signify calcium hydroxyapatite deposition disease. The soft tissue structures are unremarkable. RAD/Knee 3 Views IMPRESSION: There are no acute findings. There is calcification in the joint space which may signify calcium hydroxyapatite deposition disease. Electronically Signed: Tushar Grady MD at 16:13 EDT ,
== END | disposition home or self-care (01) ==
PROVIDERS: PCP Family Medicine; Referring Provider Family Medicine; Visit Provider Family Medicine
DX: M25.562 Pain in left knee (principal)
CPT/HCPCS: 73562

== ENCOUNTER → 2022-05-21 | Outpatient (CLI) | payer MEDICARE, MEDICAID, SELFPAY ==
--- NOTE | 2022-05-21 07:38 | CDU_ITS ---
Reason For Study: Bruit Rt. Velocities/BP Lt. Velocities/BP Prox CCA 51/14 cm/sec. Prox CCA 80/16 cm/sec. Mid CCA 52/14 cm/sec. Mid CCA 49/14 cm/sec. Dist CCA 51/15 cm/sec. Dist CCA 71/15 cm/sec. Prox ICA 46/10 cm/sec. Prox ICA 76/18 cm/sec. Mid ICA 54/12 cm/sec. Mid ICA 59/17 cm/sec. Dist ICA 91/22 cm/sec. Dist ICA 100/23 cm/sec. Rt. ICA/CCA = 1.7. Lt. ICA/CCA = 2.1. Prox ECA 87/8 cm/sec. Prox ECA 64/9 cm/sec. Rt. Vert. 64/15 cm/sec. Lt. Vert. 89/23 cm/sec. Right Extracranial There is heterogeneous, irregular atherosclerotic plaque noted in the right common carotid artery. There is heterogeneous, smooth atherosclerotic plaque noted in the right internal carotid artery. There is homogeneous, smooth atherosclerotic plaque noted in the right external carotid artery. Antegrade flow is noted in the right vertebral artery. Left Extracranial There is heterogeneous, smooth atherosclerotic plaque noted in the left common carotid artery. There is heterogeneous, irregular atherosclerotic plaque noted in the left internal carotid artery. There is heterogeneous, irregular atherosclerotic plaque noted in the left external carotid artery. Antegrade flow is noted in the left vertebral artery. Procedure Carotid Duplex [id number]. This is a Carotid Duplex examination using B-mode, color flow and specral Doppler. Exam performed in department. VL/Carotid Duplex Ultrasound Interpretation Summary Minimal smooth calcific plaque at the proximal right internal carotid artery wi th less than 50% stenosis Less than 50% stenosis right external carotid artery Irregular calcific plaque at the proximal left internal carotid artery with les s than 50% stenosis Less than 50% stenosis left external carotid artery Patent and antegrade vertebral arteries bilaterally Ordering Physician: Omaira Castellon Referring Physician: Benji Monroy Performed By: Brenda Casarez RDCS, RVT
== END | disposition home or self-care (01) ==
LOC: CVS 07:37
PROVIDERS: PCP Family Medicine; Referring Provider Physician Assistant Medical; Visit Provider Physician Assistant Medical
DX: R09.89 Other specified symptoms and signs involving the circulatory and respiratory systems (principal)
CPT/HCPCS: 93880

== ENCOUNTER → 2022-05-22 | Outpatient (CLI) | payer MEDICARE, MEDICAID, SELFPAY ==
--- NOTE | 2022-05-22 12:24 | STRESSREP_ITS ---
Stress Test Report Date: 05-22-2022 Procedure: Pharmacologic stress nuclear imaging study Indications: Fatigue Consent: Per the patient Procedure: The patient underwent pharmacologic (Regadenoson 0.4mg ) evaluation with a peak heart rate of 74 beats per minute (50%predicted maximal heart rate) and a peak blood pressure of 130/82 mmHg. The baseline ECG demonstrated sinus bradycardia; occasional PVC; ST/T wave abnormality. The peak pharmacologic ECG demonstrated no obvious ECG changes. There were occasional PVCs and pretest and in recovery. There was no complaint of chest discomfort during pharmacologic infusion or recovery. The examination was discontinued secondary to completion of protocol. Impression: 1. Pharmacologic (Regadenoson) evaluation 2. Peak pharmacologic ECG with continued ST/T wave abnormality. 3. There were occasional PVCs in pretest and in recovery. 4. Nuclear images pending Myocardial perfusion imaging study: Technique: The patient was injected with 11.9 millicuries of technetium 99m Cardiolite and subsequently rest SPECT Cardiolite nuclear imaging was obtained in the horizontal long, vertical long, and short axis views. The patient underwent pharmacologic (Regadenoson) evaluation with a peak heart rate of 74 beats per minute (50% percent predicted maximal heart rate) and a peak blood pressure of 130/82 mmHg. The patient was injected with 32.8 millicuries of technetium 99m Cardiolite and subsequently stress SPECT Cardiolite nuclear imaging was obtained in the horizontal long, vertical long, and short axis views. A gated Cardiolite study at peak stress was obtained. Interpretation: Rest and stress SPECT Cardiolite nuclear imaging status post realignment, normalization, and attenuation correction demonstrate relative uniform tracer uptake and myocardial perfusion appearing within normal limits. There is end systolic thickening and brightening. The gated Cardiolite study demonstrates myocardial thickening and inward wall motion. The reported LVEF is 77%. Impression: 1. Rest and stress SPECT Cardiolite nuclear imaging demonstrate relative uniform tracer uptake and myocardial perfusion appearing within normal limits. 2. The gated Cardiolite study reports an LVEF of 77%. This note was generated with [employer] software. It may contain incorrect words, spelling, and punctuation that were not noted in checking the note before signing.
== END | disposition home or self-care (01) ==
LOC: CVS 06:32
PROVIDERS: PCP Family Medicine; Referring Provider Physician Assistant Medical; Visit Provider Physician Assistant Medical
DX: R07.9 Chest pain, unspecified (principal); R06.02 Shortness of breath; R53.83 Other fatigue
CPT/HCPCS: 78452; 93017; A9500; A4216; J2785

== ENCOUNTER → 2022-05-25 | Outpatient (CLI) | payer MEDICARE, MEDICAID, SELFPAY ==
--- NOTE | 2022-05-25 13:31 | ECHOCS_ITS ---
Version 2 Reason For Study: Murmur Procedure This was a 2D Doppler, Color Flow transthoracic echocardiogram. The study was technically difficult. Contrast injection was performed. Exam performed in department. Left Ventricle Normal LV size. Left ventricular systolic function is normal. The estimated ejection fraction is 70 %. Diastolic function is indeterminate. No regional wall motion abnormalities noted. Right Ventricle Normal RV size. Normal systolic function. Atria The left atrium is mildly enlarged. Normal right atrium. No doppler evidence for ASD. Bubble contrast study negative for right to left interatrial shunt. Mitral Valve There is no mitral annular calcification. The mitral valve chordae are thickened and/or calcified. Mild mitral valve stenosis. Trivial mitral valve insufficiency. Tricuspid Valve Normal tricuspid valve. Mild tricuspid valve insufficiency. Right ventricular systolic pressure estimated to be 41 mmHg. Aortic Valve The aortic valve is not well visualized. Mild focal aortic valve calcification. Aortic sclerosis, no stenosis. Pulmonic Valve The pulmonic valve is not well visualized. Great Vessels The aortic root is not well visualized. Pericardium/Pleural No pericardial effusion. Medication 20 gauge I.V. with prn adaptor inserted into right arm. Diluted definity 3ml given slow IV push to enhance endocardial definition. Performed a rapid injection of agitated mix of 9 cc saline and 1cc air to assess for atrial septal defect. MMode/2D Measurements & Calculations LVIDd: 4.0 cm IVSd: 0.94 cm LVOT diam: 2.0 cm LVIDs: 2.5 cm LVPWd: 1.2 cm RVDd: 3.0 cm FS: 36.8 % LVOT area: 3.0 cm2 LA dimension: 3.7 cm LAV(MOD-bp): 50.9 ml LA A4 area: 18.5 cm2 LAV(MOD-bp) Indexed: 30.7 ml/m2 LAV(MOD-sp2): 49.5 ml LAV(MOD-sp4): 48.0 ml RA A4 area: 10.8 cm2 Time Measurements MV dec time: 0.35 sec Doppler Measurements & Calculations MV E max juan pablo: 66.2 cm/sec MV V2 max: 109.2 cm/sec MV P1/2t max juan pablo: 80.6 cm/sec MV A max juan pablo: 102.0 cm/sec MV max P.8 mmHg MV P1/2t: 123.8 msec MV E/A: 0.65 MV V2 mean: 49.5 cm/sec MV mean P.2 mmHg MV dec slope: 190.7 cm/sec2 MV V2 VTI: 37.8 cm MVA(P1/2t): 1.8 cm2 MVA(VTI): 2.6 cm2 Ao V2 max: 180.1 cm/sec LV V1 max: 142.5 cm/sec SV(LVOT): 99.4 ml Ao max P.2 mmHg LV V1 max P.1 mmHg Ao V2 mean: 116.1 cm/sec LV V1 mean P.3 mmHg Ao mean P.4 mmHg LV V1 mean: 96.8 cm/sec Ao V2 VTI: 43.9 cm LV V1 VTI: 33.0 cm ROSETTA(I,D): 2.3 cm2 ROSETTA(V,D): 2.4 cm2 PA V2 max: 103.6 cm/sec TR max juan pablo: 307.5 cm/sec TR max P.9 mmHg ECHO/Echo Complete W/ Contrast Interpretation Summary The study was technically difficult. Contrast injection was performed. Left ventricular systolic function is normal. The estimated ejection fraction is 70 %. The left atrium is mildly enlarged. The mitral valve chordae are thickened and/or calcified. Mild mitral valve stenosis. Trivial mitral valve insufficiency. Mild tricuspid valve insufficiency. Mild focal aortic valve calcification. Aortic sclerosis, no stenosis. Right ventricular systolic pressure estimated to be 41 mmHg. Diastolic function is indeterminate. Bubble contrast study negative for right to left interatrial shunt. Ordering Physician: Omaira Castellon Referring Physician: Benji Monroy Performed By: Gustabo Villarreal RCS
== END | disposition home or self-care (01) ==
LOC: CVS 13:30
PROVIDERS: PCP Family Medicine; Referring Provider Physician Assistant Medical; Visit Provider Physician Assistant Medical
DX: R00.2 Palpitations (principal)
CPT/HCPCS: 93306; Q9957; A4216; C8929

== ENCOUNTER → 2022-05-29 | Outpatient (CLI) | payer MEDICARE, MEDICAID, SELFPAY ==
[2022-05-29 11:34] LABS: Absolute Lymphocyte Count 1.51 X10^3/uL (0.83-4.51); Absolute Neutrophil Count 5.1 X10^3/uL (2.0-7.7); Basophil# 0.05 X10^3/uL; Basophil% 0.7 % (0-1); Eosinophil# 0.22 X10^3/uL; Hematocrit 46.2 % (37-47); Hemoglobin 14.8 g/dL (12.0-15.0); Lymphocyte # 1.51 X10^3/ul (0.83-4.51); Lymphocyte % 20.7 % (19-41); Mean Corpuscular Hgb 30.5 pg (27.0-32.0); Mean Corpuscular Volume 95.3 fL (81-99); Monocyte# 0.43 X10^3/uL; Monocyte% 5.9 % (0-10); NRBC Flagged by Analyzer 0 % (0-5); Neutrophil # 5.08 X10^3/uL (2.7-7.7); Neutrophil % 69.4 % (47-70); Platelet Count 225 K/mm3 (150-450); RBC Distribution Width CV 13.7 % (11.6-14.6); RBC Distribution Width SD 48.4 fl (35.1-43.9); Red Blood Count 4.85 M/mm3 (4.2-5.4); White Blood Count 7.3 K/mm3 (4.4-11.0)
[2022-05-29 11:35] LABS: Erythrocyte Sedimentation Rate 15 mm/hr (0-30)
[2022-05-29 11:47] LABS: CRP 3.22 mg/L (0.0-3.0); Rheumatoid Factor < 10.0 IU/mL (<15); Uric Acid 5.1 mg/dL (2.6-6.0)
[2022-05-30 16:20] LABS: ANTINUCLEAR ANTIBODIES DIRECT Negative (Negative)
== END | disposition home or self-care (01) ==
PROVIDERS: PCP Family Medicine; Referring Provider Orthopaedic Surgery; Visit Provider Orthopaedic Surgery
DX: M17.12 Unilateral primary osteoarthritis, left knee (principal)
CPT/HCPCS: 36415; 84550; 85025; 85652; 86038; 86140; 86431

== ENCOUNTER → 2022-06-28 | Outpatient (CLI) | payer MEDICARE, MEDICAID, SELFPAY ==
[2022-06-28 12:54] LABS: Anion Gap 7 (5-15); BUN 19 mg/dL (7-18); BUN/Creat Ratio 26.7 RATIO (10-20); Calcium,Total 8.8 mg/dL (8.5-10.1); Chloride 111 mmol/L (98-107); Cholesterol 165 mg/dL (200); Creatinine, Serum 0.71 mg/dL (0.55-1.02); EST Glomerular Filtration Rate 85 mL/min (>60); Est Glom Filt Rate - Afr Amer 103 mL/min (>60); Glucose 115 mg/dL (74-106); High Density Lipoprotein 64 mg/dL; Potassium 3.8 mmol/L (3.5-5.1); Sodium Level 141 mmol/L (136-145); Triglycerides 46 mg/dL; Very Low Density Lipoprotein 9 mg/dL (5-40)
== END | disposition home or self-care (01) ==
PROVIDERS: PCP Family Medicine; Visit Provider Family Medicine
DX: I10 Essential (primary) hypertension (principal)
CPT/HCPCS: 36415; 80048; 80061

== ENCOUNTER 2022-08-21 14:21 | Inpatient (IN) | payer MEDICARE, MEDICAID, SELFPAY ==
[2022-08-21 14:23] VITALS: BP 155/88; PULSE 93; RESP 14; TEMP 36.4; O2SAT 92; BMI 26.2
--- NOTE | 2022-08-21 14:55 | EX.ED.DYSGE1 ---
HPI History of Present Illness Chief Complaint: Dizziness Narrative Narrative: 72-year-old female here with dizziness, cough. History of hypertension, palpitations, hyperlipidemia. The patient states her blood pressure was as low as 80 systolic. States she has been feeling dizzy especially with exertion. Notes decreasing blood pressure medicines recently no other med changes. Denies any volume loss. Notes nosebleeds although denies any epistaxis currently. She does endorse a cough that is productive of yellow sputum denies any focal numbness, weakness, loss of sensation. Patient states symptoms are constant, worse with exertion, alleviated by rest. She states she is slightly dizzy now. Old chart reviewed: Stress test from April shows no evidence of myocardial ischemia, echocardiogram from April shows ejection fraction of 70% [facility] Medical History Asthma Benign neoplasm of colon Chronic constipation Essential hypertension Hyperlipidemia Mild aortic stenosis Nicotine dependence Home Medications alendronate 70 mg tablet 70 mg PO MO 04/13/19 [History Last Taken Unknown] hydroxyzine HCl 25 mg tablet 25 mg PO Q8H PRN antihistamine 04/13/19 [History Last Taken Unknown] albuterol sulfate 90 mcg/actuation aerosol inhaler 1 puff IH PRN PRN Sob &/Or Wheezing 04/17/19 [History Last Taken Unknown] isosorbide mononitrate 30 mg tablet,extended release 24 hr 30 mg PO DAILY #30 tabs 04/22/19 [History Last Taken Unknown] amlodipine 5 mg tablet 5 mg PO DAILY 04/12/20 [History Last Taken Unknown] atorvastatin 10 mg tablet 10 mg PO QHS #90 tabs 04/17/21 [Rx Last Taken Unknown] amoxicillin 500 mg-potassium clavulanate 125 mg tablet (Augmentin) 1 tab PO BID 7 days #14 tabs 08/21/22 [Rx Last Taken Unknown] amoxicillin 500 mg-potassium clavulanate 125 mg tablet (Augmentin) 1 tab PO BID 7 days #14 tabs 08/21/22 [Rx Last Taken Unknown] budesonide-formoterol HFA 160 mcg-4.5 mcg/actuation aerosol inhaler 1 puff inhalation BID 08/21/22 [History Last Taken Unknown] gabapentin 300 mg capsule 300 mg PO QHS 08/21/22 [History Last Taken Unknown] lisinopril 20 mg tablet 10 mg PO DAILY 08/21/22 [History Last Taken Unknown] montelukast 10 mg tablet 10 mg PO DAILY 08/21/22 [History Last Taken Unknown] Allergy/AdvReac Type Severity Reaction Status Date / Time watermelon Allergy Intermediate Hives Verified 08/21/22 14:27 Family History Father Cancer spinal Mother Alzheimer's disease Brother Pacemaker Surgical History History of amputation of finger of right hand History of appendectomy History of breast surgery History of cataract extraction History of D&C History of hysterectomy History of toe surgery History of tonsillectomy Social History (Updated 08/21/22 @ 22:40 by Ambreen Reyes) household members: spouse service: No pets and animals: Yes (dogs) Smoking Status: Former smoker how long ago did patient quit smokin alcohol intake: never substance use type: does not use ROS ROS ED ROS Narrative Constitutional: Denies fever HEENT: Denies sore throat, endorses occasional epistaxis Neck: Denies neck pain Cardiovascular: Denies chest pain, syncope, endorses dizziness Respiratory: Denies shortness of breath, endorses cough GI: Denies nausea vomiting or abdominal pain : Denies changes in urinary habits Musculoskeletal: Denies muscle or joint pain Neurologic: Denies numbness weakness or loss of sensation Skin denies rash EXAM Physical Exam Narrative Exam Narrative: Nursing triage notes reviewed, Vital signs reviewed Constitutional: please see mdm HENT: MMM Eyes: Pupils equal round and reactive to light, Extraocular muscles intact Neck: No stridor, no JVD, full neck ROM Lungs: Clear to auscultation, No wheezing or rales. No increased work of breathing, no conversational dyspnea, no accessory muscle use, no nasal flaring. No respiratory distress noted Heart: Regular rate and rhythm, No murmurs, No rubs and No gallops, 2+ distal pulses (radial, femoral, posterior tibial) in all extremities Abdomen: Soft, there is no tenderness, rigidity, rebound or guarding, no obvious peritoneal signs, no palpable pulsatile abdominal masses, no auscultated abdominal bruit : No CVAT Extremities: No edema Neuro: Alert and oriented x3, neuro exam at baseline, cranial nerves II through XII are intact. No pain with extraocular muscle movement. There is negative test of skew. Normal speech. 5 of 5 strength in upper and lower extremities in flexion extension. Intact sensation to light touch in upper and lower extremity dermatomes. No truncal or extremity ataxia. No dysdiadochokinesia. Normal gait. 2+ reflexes. No meningeal signs. Negative Babinski. NIH of 0 Skin: No rash or lesions noted Const Vital Signs: 08/21/22 14:23 08/21/22 15:00 08/21/22 19:09 Temperature 97.5 F L Temperature Source Temporal Pulse Rate 93 82 Respiratory Rate 14 20 H Respiratory Effort Normal Non-Labored Respiratory Pattern Normal Blood Pressure 155/88 H 195/89 H Blood Pressure Mean 110 124 Pulse Ox 92 86 Oxygen Delivery Method Room Air Room Air 08/21/22 17:20 Temperature Temperature Source Pulse Rate 88 Respiratory Rate 18 Respiratory Effort Respiratory Pattern Blood Pressure Blood Pressure Mean Pulse Ox 91 Oxygen Delivery Method Room Air MDM MDM MDM Narrative Medical decision making narrative: 72-year-old female here with dizziness, epistaxis, cough in the setting of transient hypotension. Exam without focal neurologic deficits, no ataxia. Low suspicion for posterior circulation CVA. Concern for anemia, dehydration, arrhythmia, ACS, pneumonia, COVID. Obtained labs, EKG, and imaging to further elucidate etiology of the patient complaints. EKG, troponin showed no evidence of myocardial ischemia. I did not think her dizziness is associated with ACS. Patient was not clinically dehydrated. She did have mild hypokalemia which was replaced with oral potassium. Chest x-ray did not reveal evidence of bacterial pneumonia however did reveal evidence of a questionable lung mass. Lung mass I did obtain a CT of the chest to other characterize this mass and to determine the patient had a pulmonary embolism, pneumonia or other abnormality of the lung tissue. CTA showed no evidence of PE did show evidence of inflammation and possible mass. Given concern for inflammation did give antimicrobials in the form of Augmentin initially as I anticipated discharge. The patient was ambulated here in the emergency department she was hypoxic 88%. Given hypoxia the patient is not safe to discharge. At this point I gave her Decadron for severe COVID mortality benefit. I added on ceftriaxone and azithromycin for further antimicrobial coverage given hypoxia. Discussed with internal medicine physician. Patient was admitted to the PCU in stable condition. Lab Data Attestation: I reviewed the patient's lab results. Lab results narrative: CBC without leukocytosis, severe anemia, no thrombocytopenia. BMP with mild hypokalemia, no anion gap, no CHARLY Lactate is wnl indicating no end-organ hypoperfusion and/or hypoxia. Troponin is negative, no evidence of myocardial ischemia UA without evidence of UTI COVID-19 is positive Labs: Laboratory Results - last 24 hr 08/21/22 08/21/22 08/21/22 14:58 14:58 14:58 WBC 5.5 RBC 4.41 Hgb 13.7 Hct 40.9 MCV 92.7 MCH 31.1 MCHC 33.5 RDW Std Deviation 49.4 H RDW Coeff of Eloisa 14.4 Plt Count 175 MPV 11.2 Immature Gran % (Auto) 0.700 Neut % (Auto) 74.4 H Lymph % (Auto) 15.7 L Pickens % (Auto) 8.0 Eos % (Auto) 0.7 Baso % (Auto) 0.5 Absolute Neuts (auto) 4.1 Absolute Lymphs (auto) 0.86 Nucleated RBC % 0 Sodium 143 Potassium 3.2 L Chloride 109 H Carbon Dioxide 27.0 Anion Gap 7 BUN 11 Creatinine 0.87 Estim Creat Clear Calc 45.55 Est GFR (MDRD) Af Amer 82 Est GFR (MDRD) Non-Af 68 BUN/Creatinine Ratio 12.6 Glucose 101 Lactic Acid 1.9 Calcium 9.6 Troponin I High Sens 54 Urine Color Urine Clarity Urine pH Ur Specific Bosworth Urine Protein Urine Glucose (UA) Urine Ketones Urine Occult Blood Urine Nitrite Urine Bilirubin Urine Urobilinogen Ur Leukocyte Esterase Urine RBC Urine WBC Ur Squamous Epith Cells Urine Bacteria Fine Granular Casts Coarse Granular Casts Urine Mucus 08/21/22 16:56 WBC RBC Hgb Hct MCV MCH MCHC RDW Std Deviation RDW Coeff of Eloisa Plt Count MPV Immature Gran % (Auto) Neut % (Auto) Lymph % (Auto) Pickens % (Auto) Eos % (Auto) Baso % (Auto) Absolute Neuts (auto) Absolute Lymphs (auto) Nucleated RBC % Sodium Potassium Chloride Carbon Dioxide Anion Gap BUN Creatinine Estim Creat Clear Calc Est GFR (MDRD) Af Amer Est GFR (MDRD) Non-Af BUN/Creatinine Ratio Glucose Lactic Acid Calcium Troponin I High Sens Urine Color Yellow Urine Clarity Clear Urine pH 6.0 Ur Specific Bosworth 1.015 Urine Protein 30 H Urine Glucose (UA) Normal Urine Ketones 5 H Urine Occult Blood 25 H Urine Nitrite Negative Urine Bilirubin Negative Urine Urobilinogen Normal Ur Leukocyte Esterase 25 H Urine RBC 5-10 SEEN Urine WBC 5-10 SEEN Ur Squamous Epith Cells 5-10 SEEN Urine Bacteria 1+ Fine Granular Casts 0-5 SEEN Coarse Granular Casts 0-5 SEEN Urine Mucus 1+ Radiography Diagnostic Testing: Clinical Impression(s) from Imaging Studies Chest X-Ray 08/21/22 15:50 IMPRESSION: Spiculated right suprahilar density 2.72 x 2.[address] without and with contrast if clinically warranted. Bibasilar fibrosis. Tortuous descending aorta. Moderate wedge compression fracture T12 age-indeterminate. Mild wedge compression fracture T9 age-indeterminate. Level 3 nonstandard communication initiated. Electronically Signed: Aneudy Dumont MD, ANNE at 16:14 EDT , ADDENDUM: 08/21/22 1659 IMPRESSION: Spiculated right suprahilar density 2.72 x 2.[address] without and with contrast if clinically warranted. Bibasilar fibrosis. Tortuous descending aorta. Moderate wedge compression fracture T12 age-indeterminate. Mild wedge compression fracture T9 age-indeterminate. Level 3 nonstandard communication initiated. N.B. : Kalin Amin MD, confirmed on 08/21/2022 16:52:05 (ET) that the healthcare facility has received the radiology report. Electronically Signed: Aneudy Dumont MD, ANNE at 16:14 EDT , Chest CTA 08/21/22 17:11 IMPRESSION: ASHD and chronic interstitial thickening with emphysematous changes.. Irregular airspace opacity in right upper lobe measuring approximately 2.8 x 2.3 cm possibly representing inflammatory disease however cannot exclude neoplasm particularly FATIMAH. Clinical correlation recommended. The lesion is amenable to CT-guided biopsy if desired. Small subcentimeter mediastinal nodes of uncertain significance Electronically Signed: Vance Mcconnell MD at 18:24 EDT , EKG Initial EKG: Comments: EKG with normal sinus rhythm, left axis deviation, no STEMI, no ischemic changes from prior Discharge Plan Dx/Rx/DC Orders Clinical Impression: COVID-19, Lung mass, Pneumonia, Hypoxia Disposition Disposition: Acute Care [facility] Discharge Date/Time: 08/21/22 22:05
--- NOTE | 2022-08-21 15:20 | EKG12_ITS ---
Test Reason : Blood Pressure : / mmHG Vent. Rate : 082 BPM Atrial Rate : 082 BPM P-R Int : 156 ms QRS Dur : 086 ms QT Int : 412 ms P-R-T Axes : 042 -16 099 degrees QTc Int : 481 ms Normal sinus rhythm ST & T wave abnormality, consider anterior-lateral ischemia Abnormal ECG Confirmed by DAMARIS EATON, ALETHEA ([id number]), medical editor JACQUE RINCON ([id number]) on 08/23/2022 10:41:44 AM Referred By: Confirmed By:ALETHEA OCAMPO MD
[2022-08-21 15:47] LABS: Absolute Lymphocyte Count 0.86 X10^3/uL (0.83-4.51); Absolute Neutrophil Count 4.1 X10^3/uL (2.0-7.7); Basophil# 0.03 X10^3/uL; Basophil% 0.5 % (0-1); Eosinophil# 0.04 X10^3/uL; Eosinophils% 0.7 % (0-5); Hematocrit 40.9 % (37-47); Hemoglobin 13.7 g/dL (12.0-15.0); Lymphocyte # 0.86 X10^3/ul (0.83-4.51); Lymphocyte % 15.7 % (19-41); Mean Corp Hgb Conc 33.5 g/dL (32-36); Mean Corpuscular Hgb 31.1 pg (27.0-32.0); Mean Corpuscular Volume 92.7 fL (81-99); Mean Platelet Vol. 11.2 fl (6.2-12.0); Monocyte# 0.44 X10^3/uL; NRBC Flagged by Analyzer 0 % (0-5); Neutrophil # 4.06 X10^3/uL (2.7-7.7); Neutrophil % 74.4 % (47-70); Platelet Count 175 K/mm3 (150-450); RBC Distribution Width CV 14.4 % (11.6-14.6); RBC Distribution Width SD 49.4 fl (35.1-43.9); Red Blood Count 4.41 M/mm3 (4.2-5.4); White Blood Count 5.5 K/mm3 (4.4-11.0)
--- NOTE | 2022-08-21 15:50 | RAD_ITS ---
ACR Level 3 findings have been noted. An addendum which confirms receipt of the report will follow. STUDY: X-RAY CHEST REASON FOR EXAM: Female, 72 years old. cough, dizziness TECHNIQUE: PA or AP. Lateral. COMPARISON: 02/22/2022 FINDINGS: Right lower lobe 1 cm nodular density is no longer appreciated. There is a spiculated density in the right suprahilar region. This measures 2.7 cm transverse by 2.28 cm craniocaudal and is a progressive finding. This could represent lung carcinoma or progressive scarring. Mild bibasilar fibrosis. There is no demonstrated pleural abnormality. Normal size heart. Normal mediastinum and rosamaria. Normal visualized pulmonary arteries. Mildly tortuous descending aorta. Moderate wedge compression fracture T12 age-indeterminate. Mild wedge compression fracture T9 age-indeterminate. Normal visualized ribs, clavicles, and shoulders. There is no demonstrated abnormality of the visualized soft tissue structures of the upper abdomen. RAD/Chest PA and Lateral IMPRESSION: Spiculated right suprahilar density 2.72 x 2.[address] without and with contrast if clinically warranted. Bibasilar fibrosis. Tortuous descending aorta. Moderate wedge compression fracture T12 age-indeterminate. Mild wedge compression fracture T9 age-indeterminate. Level 3 nonstandard communication initiated. Electronically Signed: Aneudy Dumont MD, ANNE at 16:14 EDT ,
[2022-08-21 16:01] LABS: Anion Gap 7 (5-15); BUN 11 mg/dL (7-18); BUN/Creat Ratio 12.6 RATIO (10-20); Calcium,Total 9.6 mg/dL (8.5-10.1); Chloride 109 mmol/L (98-107); Creatinine, Serum 0.87 mg/dL (0.55-1.02); EST Glomerular Filtration Rate 68 mL/min (>60); Est Glom Filt Rate - Afr Amer 82 mL/min (>60); Estimated Creatinine Clearance 45.55 ml/min; Glucose 101 mg/dL (74-106); Potassium 3.2 mmol/L (3.5-5.1); Sodium Level 143 mmol/L (136-145); Troponin-I HS 54 pg/mL (3.0-54.0)
[2022-08-21 16:06] LABS: Lactic Acid 1.9 mmol/L (0.4-1.9)
[2022-08-21 17:04] LABS: Color, Urine Yellow (Yellow); Glucose, Dipstick Normal (Normal); Ketone-Dipstick 5 mg/dl (Negative); Leukocyte Esterase-Dipstick 25 /ul (Negative); Nitrite-Dipstick Negative (Negative); Occult Blood-Urine 25 /ul (Negative); Protein-Dipstick 30 mg/dl (Negative); Specific Gravity, Urine 1.015 (1.002-1.030); Urine Bilirubin Dipstick Negative (Negative); Urine Clarity Clear (Clear); Urine Urobilinogen Normal (Normal)
--- NOTE | 2022-08-21 17:11 | CT_ITS ---
STUDY: CTA CHEST REASON FOR EXAM: Female, 72 years old. dizziness, lung mass r/o mass, PNA, PE RADIATION DOSAGE (If Supplied By Facility): CTDIvol = ( 5.07 ) mGy, DLP = ( 196.15 ) mGycm TECHNIQUE: The examination was performed with the intravenous administration of IV 100mL [id number]-[id number]. Post-processing of the angiographic images was performed, with multiplanar reformation and 3D reconstruction. Individualized dose optimization techniques were used for this CT. COMPARISON: None. FINDINGS: Normal enhancement of the main pulmonary artery and right and left pulmonary arteries. Normal enhancement of the bilateral peripheral pulmonary arteries. There is no demonstrated pulmonary embolism. Mild atherosclerotic changes of the aorta without evidence for aneurysm. There is no demonstrated aortic dissection. Heart size is normal. Multivessel coronary artery calcification Subcentimeter mediastinal nodes of uncertain significance. Normal hilar regions. Normal visualized trachea and bronchi. The lungs are well expanded. Diffuse interstitial thickening more pronounced the lower lobes with emphysematous changes Irregular patchy airspace nodular density in the right upper lobe measuring approximately 2.8 x 2.3 cm Normal pleura. Dorsal spine demonstrates degenerative change. There are chronic compression fractures most severe at T11 . Normal visualized upper abdomen. CT/CTA Chest W/WO Contrast IMPRESSION: ASHD and chronic interstitial thickening with emphysematous changes.. Irregular airspace opacity in right upper lobe measuring approximately 2.8 x 2.3 cm possibly representing inflammatory disease however cannot exclude neoplasm particularly FATIMAH. Clinical correlation recommended. The lesion is amenable to CT-guided biopsy if desired. Small subcentimeter mediastinal nodes of uncertain significance Electronically Signed: Vance Mcconnell MD at 18:24 EDT ,
[2022-08-21 17:20] VITALS: PULSE 88; RESP 18; O2SAT 91
[2022-08-21 17:20] LABS: Bacteria 1+ /hpf (None Seen); Mucous, Urine 1+ /hpf (<or=2+); Red Blood Cells-Urine 5-10 SEEN /hpf (0-5); Squamous Epithelial Cells - UA 5-10 SEEN /hpf (5-10); White Blood Cells 5-10 SEEN /hpf (0-5)
[2022-08-21 17:21] LABS: Coarse Granular Cast 0-5 SEEN /lpf (0-5 /lpf); Fine Granular Cast- Urine 0-5 SEEN /lpf (0-5)
[2022-08-21] MEDS: Potassium Chloride Oral Tablet 20 MEQ 40 MEQ PO ×2 (17:32→22:57)
[2022-08-21] MEDS: Amox/Clavulanate 875 MG Tablet PO (19:00)
[2022-08-21 19:09] VITALS: BP 195/89; PULSE 82; RESP 20; O2SAT 86; O2SAT 90
[2022-08-21] MEDS: dexAMETHasone 10 MG/ML Vial 6 MG IV (19:28)
[2022-08-21] MEDS: Ceftriaxone 1 GM/50 ML BAG IV (19:29)
--- NOTE | 2022-08-21 20:46 | HP.PCM.HOS_ITS ---
HPI - General General Date of Admission: 08/21/22 Date of Service: 08/21/22 Chief Complaint: dizziness HPI Narrative JUAN HAWKINS, is a 72 F who presents with dizziness. Patient is feeling sick for the past 3 to 4 days. Patient states that she feels dizzy whenever she tries to exert herself and also feels short of breath. She was not getting better so she presented to the emergency room. In the emergency room, patient was tested positive for COVID-19 and she underwent CTA of her chest. The CTA of her chest showed emphysematous changes and an irregular airspace opacity in the right upper lobe measuring 2.8 x 2.3 cm representing inflammatory disease but cannot rule out neoplasm. The try to ambulate the patient but her oxygenation dropped down to 80%. Patient is unvaccinated for COVID-19 stating that she did not want the vaccine be did not prevent people from catching the illness. [facility] Medical History Asthma Benign neoplasm of colon Chronic constipation Essential hypertension Hyperlipidemia Mild aortic stenosis Nicotine dependence Home Medications alendronate 70 mg tablet 70 mg PO MO 04/13/19 [History Last Taken Unknown] hydroxyzine HCl 25 mg tablet 25 mg PO Q8H PRN antihistamine 04/13/19 [History Last Taken Unknown] albuterol sulfate 90 mcg/actuation aerosol inhaler 1 puff IH PRN PRN Sob &/Or Wheezing 04/17/19 [History Last Taken Unknown] isosorbide mononitrate 30 mg tablet,extended release 24 hr 30 mg PO DAILY #30 tabs 04/22/19 [History Last Taken Unknown] amlodipine 5 mg tablet 5 mg PO DAILY 04/12/20 [History Last Taken Unknown] atorvastatin 10 mg tablet 10 mg PO QHS #90 tabs 04/17/21 [Rx Last Taken Unknown] amoxicillin 500 mg-potassium clavulanate 125 mg tablet (Augmentin) 1 tab PO BID 7 days #14 tabs 08/21/22 [Rx Last Taken Unknown] amoxicillin 500 mg-potassium clavulanate 125 mg tablet (Augmentin) 1 tab PO BID 7 days #14 tabs 08/21/22 [Rx Last Taken Unknown] budesonide-formoterol HFA 160 mcg-4.5 mcg/actuation aerosol inhaler 1 puff inhalation BID 08/21/22 [History Last Taken Unknown] gabapentin 300 mg capsule 300 mg PO QHS 08/21/22 [History Last Taken Unknown] lisinopril 20 mg tablet 10 mg PO DAILY 08/21/22 [History Last Taken Unknown] montelukast 10 mg tablet 10 mg PO DAILY 08/21/22 [History Last Taken Unknown] Allergy/AdvReac Type Severity Reaction Status Date / Time watermelon Allergy Intermediate Hives Verified 08/21/22 14:27 Family History (Updated 08/21/22 @ 20:[address] Jeff Romano DO) Father Cancer spinal Mother Alzheimer's disease Brother Pacemaker Surgical History History of amputation of finger of right hand History of appendectomy History of breast surgery History of cataract extraction History of D&C History of hysterectomy History of toe surgery History of tonsillectomy Social History Smoking Status: Current every day smoker tobacco type: cigarettes how long ago did patient quit smokin alcohol intake: never substance use type: does not use ROS ROS Narrative No fever chills. No sore throat or rhinitis. All review of systems were negative except as mentioned above in the history of present illness and the other review of systems. Vital Signs Vital Signs Vital Signs: 08/21/22 14:23 08/21/22 15:00 08/21/22 19:09 Temperature 36.4 C L Temperature Source Temporal Pulse Rate 93 82 Respiratory Rate 14 20 H Respiratory Effort Normal Non-Labored Respiratory Pattern Normal Blood Pressure 155/88 H 195/89 H Blood Pressure Mean 110 124 Pulse Ox 92 86 Oxygen Delivery Method Room Air Room Air 08/21/22 17:20 Temperature Temperature Source Pulse Rate 88 Respiratory Rate 18 Respiratory Effort Respiratory Pattern Blood Pressure Blood Pressure Mean Pulse Ox 91 Oxygen Delivery Method Room Air Weight Weight: 64.864 kg Body Mass Index (BMI) 26.2 Physical Exam Const alert and no apparent distress Constitutional Narrative: On oxygen. No respiratory distress. No conversational dyspnea. HEENT normocephalic, head/scalp atraumatic, hearing grossly normal bilaterally and moist oral mucous membranes Resp normal respiratory effort and no retractions Auscultation: wheezes Cardio regular rate, regular rhythm, S1 normal heart sound and S2 normal heart sound GI normal to inspection, nondistended, normoactive bowel sounds, soft to palpation, non-tender and non-distended Extremity normal to inspection Neuro oriented x3 and moves all extremities Psych affect normal Results Lab / Micro Data Attestation: I reviewed the patient's lab results. Result Diagrams: 08/21/22 14:58 08/21/22 14:58 Labs: Laboratory Results - last 24 hr 08/21/22 14:58: WBC 5.5, RBC 4.41, Hgb 13.7, Hct 40.9, MCV 92.7, MCH 31.1, MCHC 33.5, RDW Std Deviation 49.4 H, RDW Coeff of Eloisa 14.4, Plt Count 175, MPV 11.2, Immature Gran % (Auto) 0.700, Neut % (Auto) 74.4 H, Lymph % (Auto) 15.7 L, [place] % (Auto) 8.0, Eos % (Auto) 0.7, Baso % (Auto) 0.5, Absolute Neuts (auto) 4.1, Absolute Lymphs (auto) 0.86, Nucleated RBC % 0 08/21/22 14:58: Sodium 143, Potassium 3.2 L, Chloride 109 H, Carbon Dioxide 27.0, Anion Gap 7, BUN 11, Creatinine 0.87, Estim Creat Clear Calc 45.55, Est GFR (MDRD) Af Amer 82, Est GFR (MDRD) Non-Af 68, BUN/Creatinine Ratio 12.6, Glucose 101, Calcium 9.6, Troponin I High Sens 54 08/21/22 14:58: Lactic Acid 1.9 08/21/22 16:56: Urine Color Yellow, Urine Clarity Clear, Urine pH 6.0, Ur Specific [place] 1.015, Urine Protein 30 H, Urine Glucose (UA) Normal, Urine Ketones 5 H, Urine Occult Blood 25 H, Urine Nitrite Negative, Urine Bilirubin Negative, Urine Urobilinogen Normal, Ur Leukocyte Esterase 25 H, Urine RBC 5-10 SEEN, Urine WBC 5-10 SEEN, Ur Squamous Epith Cells 5-10 SEEN, Urine Bacteria 1+, Fine Granular Casts 0-5 SEEN, Coarse Granular Casts 0-5 SEEN, Urine Mucus 1+ Micro: Microbiology 08/21/22 15:48 Nasal Secretion SARS-CoV-2 & FLU Antigen (Rapid) - Final SARS-CoV-2 (COVID 19) EKG Initial EKG: Attestation: I personally reviewed and interpreted this EKG as follows: Prior EKG tracings: available for review EKG Rhythm Intrepretation: Sinus Rhythm Radiology Impression Chest X-Ray 08/21/22 15:50 IMPRESSION: Spiculated right suprahilar density 2.72 x 2.[address] without and with contrast if clinically warranted. Bibasilar fibrosis. Tortuous descending aorta. Moderate wedge compression fracture T12 age-indeterminate. Mild wedge compression fracture T9 age-indeterminate. Level 3 nonstandard communication initiated. Electronically Signed: Aneudy Dumont MD, JD at 16:14 EDT , ADDENDUM: 08/21/22 1659 IMPRESSION: Spiculated right suprahilar density 2.72 x 2.[address] without and with contrast if clinically warranted. Bibasilar fibrosis. Tortuous descending aorta. Moderate wedge compression fracture T12 age-indeterminate. Mild wedge compression fracture T9 age-indeterminate. Level 3 nonstandard communication initiated. N.B. : Kalin Amin MD, confirmed on 08/21/2022 16:52:05 (ET) that the healthcare facility has received the radiology report. Electronically Signed: Aneudy Dumont MD, JD at 16:14 EDT , Chest CTA 08/21/22 17:11 IMPRESSION: ASHD and chronic interstitial thickening with emphysematous changes.. Irregular airspace opacity in right upper lobe measuring approximately 2.8 x 2.3 cm possibly representing inflammatory disease however cannot exclude neoplasm particularly FATIMAH. Clinical correlation recommended. The lesion is amenable to CT-guided biopsy if desired. Small subcentimeter mediastinal nodes of uncertain significance Electronically Signed: Vance Mcconnell MD at 18:24 EDT , Assessment & Plan Assessment/Plan (1) COVID-19: PLAN: Day 0 was likely the 22nd. Patient is unvaccinated I suspect the patient will fare well with the COVID-19 Patient did receive dexamethasone in the emergency room and will continue for 9 more days cleated 10-day course Discussed with the patient about using antivirals with remdesivir. Patient is agreeable (2) Lung mass: PLAN: Infectious versus malignancy Consult pulmonary for further recommendations (3) Pneumonia: QUALIFIERS: Aspiration pneumonia type: unspecified Laterality: right Lung location: upper lobe of lung PLAN: Suspected. Continue with ceftriaxone azithromycin Check sputum culture and antigens for Streptococcus and Legionella Pulmonary toilet (4) COPD exacerbation: PLAN: Patient has a history of asthma. COPD Patient will be on steroids with dexamethasone continue bronchodilators Advised patient to follow-up with pulmonary as outpatient more formal testing (5) Hypokalemia: PLAN: Replace Check magnesium (6) Acute respiratory failure with hypoxia: PLAN: I suspect this is why the patient was feeling dizzy when she was exerting herself she would get dizzy and short of breath. Due to the COPD, COVID, right upper lobe mass Wean oxygen as tolerated PLAN: Plan Chronic conditions * Hypertension: Continue with amlodipine, lisinopril * Hyperlipidemia: Continue with atorvastatin VTE prophylaxis: LMWH Charges/Coding Visit Charges Inpatient E&M: 58408 Init Hosp L3
[2022-08-21 21:34] VITALS: BP 187/89; PULSE 89; RESP 18; TEMP 36.3; O2SAT 96
[2022-08-21 22:25] VITALS: BMI 25.4
[2022-08-21 22:29] VITALS: BP 154/96; PULSE 64; RESP 18; TEMP 35.7; O2SAT 94
[2022-08-21] MEDS: Ondansetron 4 MG/2 ML Vial IV (22:52)
[2022-08-21] MEDS: Gabapentin 300 MG Capsule PO (22:57)
[2022-08-21] MEDS: Atorvastatin Calcium 10 MG Tablet PO (22:58)
[2022-08-21] MEDS: guaiFENesin 1,200 MG Tablet 1200 MG PO (22:58)
[2022-08-21] MEDS: 0.9% Saline Lock 10 ML Syringe IV (23:07)
[2022-08-21 23:20] VITALS: O2SAT 94
[2022-08-21 23:49] LABS: Alkaline Phosphatase 93 U/L (45-117)
[2022-08-22] VITALS (12 sets, daily range): BP systolic 129–161; BP diastolic 64–96; PULSE 64–100; RESP 18–20; TEMP 35.7–36.6; O2SAT 92–98
[2022-08-22 05:35] LABS: Absolute Lymphocyte Count 0.41 X10^3/uL (0.83-4.51); Absolute Neutrophil Count 4.9 X10^3/uL (2.0-7.7); Basophil# 0.02 X10^3/uL; Basophil% 0.4 % (0-1); Hematocrit 42.6 % (37-47); Lymphocyte # 0.41 X10^3/ul (0.83-4.51); Lymphocyte % 7.5 % (19-41); Mean Corp Hgb Conc 32.9 g/dL (32-36); Mean Corpuscular Hgb 30.8 pg (27.0-32.0); Mean Corpuscular Volume 93.8 fL (81-99); Mean Platelet Vol. 11.2 fl (6.2-12.0); Monocyte# 0.09 X10^3/uL; Monocyte% 1.6 % (0-10); NRBC Flagged by Analyzer 0 % (0-5); Neutrophil # 4.89 X10^3/uL (2.7-7.7); Neutrophil % 89.6 % (47-70); POSITIVE DIFFERENTIAL YES; Platelet Count 179 K/mm3 (150-450); RBC Distribution Width CV 14.4 % (11.6-14.6); RBC Distribution Width SD 49.9 fl (35.1-43.9); Red Blood Count 4.54 M/mm3 (4.2-5.4); White Blood Count 5.5 K/mm3 (4.4-11.0)
[2022-08-22 05:38] LABS: Differential Indicated SCAN CRITERIA MET
[2022-08-22 05:58] LABS: ALB/GLOB Ratio 0.8 RATIO (0.9-2.4); AST(SGOT) 51 U/L (15-37); Alanine Aminotransfer ALT/SGPT 44 U/L (13-56); Albumin, Serum 2.8 g/dL (3.2-5.0); Alkaline Phosphatase 93 U/L (45-117); Anion Gap 4 (5-15); BUN 10 mg/dL (7-18); Calcium,Total 8.4 mg/dL (8.5-10.1); Chloride 111 mmol/L (98-107); Creatinine, Serum 0.67 mg/dL (0.55-1.02); EST Glomerular Filtration Rate 92 mL/min (>60); Est Glom Filt Rate - Afr Amer 111 mL/min (>60); Estimated Creatinine Clearance 39.63 ml/min; Globulin 3.5 g/dL (2.2-4.2); Glucose 175 mg/dL (74-106); Magnesium 1.5 mg/dL (1.6-2.6); Potassium 4.8 mmol/L (3.5-5.1); Protein, Total 6.3 g/dL (6.4-8.2); Sodium Level 142 mmol/L (136-145)
[2022-08-22 06:23] LABS: Differential Comment SCANNED
[2022-08-22 06:24] LABS: Prothrombin Time (Protime)PT. 12.6 SECONDS (11.7-14.9)
[2022-08-22] MEDS: Ipratropium/Albuterol Sulfate 3 ML AMPUL.NEB INHALATION ×3 (07:41→19:40)
[2022-08-22] MEDS: dexAMETHasone 4 MG Tablet 6 MG PO (09:08)
[2022-08-22] MEDS: Montelukast 10 MG Tablet PO (09:09)
[2022-08-22] MEDS: Lisinopril 10 MG Tablet PO (09:09)
[2022-08-22] MEDS: Enoxaparin 40 MG/0.4 ML Syringe SC (09:09)
[2022-08-22] MEDS: amLODIPine 5 MG Tablet PO (09:09)
[2022-08-22] MEDS: guaiFENesin 1,200 MG Tablet 1200 MG PO ×2 (09:09→21:35)
[2022-08-22] MEDS: Isosorbide Mononitrate 30 MG Tablet PO (09:09)
--- NOTE | 2022-08-22 10:23 | CASEMGMT ---
JARED BURRELL assessment: Initial transition planning/care coordination assessment. JARED BURRELL introduced self and role at [facility], pt voices understanding and consents to assessment. Pt is A/Ox4 and answers all questions appropriately. Pt is on 5L nc and able to speak in full sentences.? Care providers, pharmacy,?and demographics verified. ? Presentation: Pt states feeling dizzy/weak Admitting dx: COVID, lung mass PCP: Porfirio Specialists: None Preferred Pharmacy: [facility] Insurance: [facility] Prescription Benefit:?Yes Living Will/HPOA: Pt has LW/HPOA and is aware that they are not on file at [facility]. Pt states her , Benji Lezama, is HPOA. LNOK: Benji Lezama, /HPOA Living Arrangements: Pt lives with in 1 story apt with no steps and states no concerns at home. Pt is independent with ADL's. Pt states is asymptomatic. Transportation: Pt drives self and states no transportation concerns. DME/HHC: Pt has a BP cuff, heart monitor, and pulse ox at home. Pt states no need for any further DME. Pt has had HHC in the past but has not been to SNF. Pt states no preference for DME company, if qualifies for home oxygen at discharge. Pt states no concerns with going home at time of discharge. Pt is retired. Pt does not smoke cigarettes or drink ETOH. Pt voices no further concerns/needs. CM to follow for any further discharge planning/needs. Advised pt to ask for CM if any further questions/concerns/needs arise, voices understanding. Pt Goal: Home ? Plan[place] JARED BURRELL
[2022-08-22] MEDS: Ensure Plus High Protein 120 ML LIQUID PO ×2 (13:55→18:27)
--- NOTE | 2022-08-22 16:16 | EX.PCM.CONCC ---
Assessment & Plan Assessment/Plan (1) COPD exacerbation: (2) COVID-19: (3) Lung mass: PLAN: Plan RECOMMENDATIONS: 1. Agree with Decadron, bronchodilators, Remdesivir and mucolytic 2. Wean supplemental oxygen as tolerated. Walking oximetry prior to discharge 3. Outpatient complete PFT for quantification clarification of lung function 4. Potential CT-guided biopsy once recovered from current exacerbation IMPRESSIONS: 1. Acute hypoxic respiratory insufficiency secondary to COVID-19 with probable COPD exacerbation Patient does not carry a formal diagnosis of COPD, but does have an extensive smoking history, bilateral emphysematous changes and a chronic productive cough with change in sputum. Patient is on minimal nasal cannula oxygen at this time. Agree with Decadron therapy and Remdesivir. Patient is unvaccinated. Day #0 is suspected to be August 18, 2022. Patient will need an outpatient pulmonary function test for quantification clarification of lung function. Patient on an asthmatic regiment prior to admission. Patient will also need a walking oximetry prior to discharge. Reasonable to use empiric antibiotics pending culture data 2. Lung mass Patient with no significant mass on CT scan of the chest. Patient does have associated lymphadenopathy, but this may be secondary to COVID-19. Given ambiguity of lymphadenopathy, likely proceed with a CT-guided biopsy as an outpatient once she has recovered from problem #1. Did stressed to the patient that this could be consistent with malignancy and will require follow-up. Patient and her voiced understanding. 3. Hypertension/hyperlipidemia/advanced age/significant tobacco history/possible osteoporosis Complicates care, management, recovery and prognosis. Okay to continue with baseline medications for now. Patient is on alendronate, but denies a formal diagnosis of osteoporosis. Steroids may exacerbate condition in the long-term. HPI Consult Data Date of Consult: 08/22/22 HPI Narrative Reason for Consultation: COVID/lung mass HPI Narrative: JUAN HAWKINS is a 72 F, with past medical history listed below, who presents to [facility] on 08/21/2022 secondary to dizziness. Patient reportedly had a blood pressure as low as 80 systolic but had complained of her dizziness especially with exertion. Patient not reported any recent change in medications. Patient does have a history of epistaxis, but denies this recently. Patient did report a cough productive of yellow sputum without any concomitant chest pain, abdominal pain, nausea or vomiting. Patient did report increased shortness of breath with activity, but alleviated by rest. In the ER, patient was afebrile and hypertensive at 195/89. Patient had desaturated to 86% on room air. Laboratory data showed a white blood cell count of 5.5, hemoglobin of 13.7 and platelets of 175. Chemistries showed a potassium of 3.2 with a bicarbonate of 27. Lactate was within normal limits. UA did show potential early UTI. Chest x-ray showed a spiculated right suprahilar density with recommendations for a CT scan. Patient subsequently had a CT of the chest showing chronic interstitial thickening with significant emphysematous changes. Patient also noted to have a 2.8 x 2.3 irregular airspace cavity suggestive of possible cancer. Patient was given Decadron for severe COVID along with ceftriaxone and azithromycin for concerns of concomitant bacterial infection. Patient was admitted to the PCU for further evaluation. Since being in the PCU, patient overall feels subjectively slightly improved compared to previous. Patient has been on up to 4 L nasal cannula to maintain saturations, especially with activity. Patient states she does not use supplemental oxygen at baseline. Patient has never seen a public finance specialist, had a PFT or previous chest imaging that she is aware of. Patient does have an extensive smoking history of over 40+ pack years. Patient does not believe that she has had any inhalers in the past outside of an albuterol which I never used. Patient is not reporting any unintentional weight loss or hemoptysis. Patient does report intermittent seasonal allergies. Patient states that she has never had COVID before to her knowledge. Patient states she has never been vaccinated. Patient is unclear on the exact transference of COVID. Review of systems otherwise negative from a constitutional, HEENT, respiratory, cardiovascular, GI, genitourinary, musculoskeletal, skin, neurologic, psychiatric and hematologic system unless stated above. [facility] Medical History Asthma Benign neoplasm of colon Chronic constipation Essential hypertension Hyperlipidemia Mild aortic stenosis Nicotine dependence Home Medications alendronate 70 mg tablet 70 mg PO MO 04/13/19 [History Last Taken Unknown] hydroxyzine HCl 25 mg tablet 25 mg PO Q8H PRN antihistamine 04/13/19 [History Last Taken Unknown] albuterol sulfate 90 mcg/actuation aerosol inhaler 1 puff IH PRN PRN Sob &/Or Wheezing 04/17/19 [History Last Taken Unknown] isosorbide mononitrate 30 mg tablet,extended release 24 hr 30 mg PO DAILY #30 tabs 04/22/19 [History Last Taken Unknown] amlodipine 5 mg tablet 5 mg PO DAILY 04/12/20 [History Last Taken Unknown] atorvastatin 10 mg tablet 10 mg PO QHS #90 tabs 04/17/21 [Rx Last Taken Unknown] amoxicillin 500 mg-potassium clavulanate 125 mg tablet (Augmentin) 1 tab PO BID 7 days #14 tabs 08/21/22 [Rx Last Taken Unknown] amoxicillin 500 mg-potassium clavulanate 125 mg tablet (Augmentin) 1 tab PO BID 7 days #14 tabs 08/21/22 [Rx Last Taken Unknown] budesonide-formoterol HFA 160 mcg-4.5 mcg/actuation aerosol inhaler 1 puff inhalation BID 08/21/22 [History Last Taken Unknown] gabapentin 300 mg capsule 300 mg PO QHS 08/21/22 [History Last Taken Unknown] lisinopril 20 mg tablet 10 mg PO DAILY 08/21/22 [History Last Taken Unknown] montelukast 10 mg tablet 10 mg PO DAILY 08/21/22 [History Last Taken Unknown] Allergy/AdvReac Type Severity Reaction Status Date / Time watermelon Allergy Intermediate Hives Verified 08/21/22 14:27 Family History Father Cancer spinal Mother Alzheimer's disease Brother Pacemaker Surgical History History of amputation of finger of right hand History of appendectomy History of breast surgery History of cataract extraction History of D&C History of hysterectomy History of toe surgery History of tonsillectomy Social History household members: spouse service: No pets and animals: Yes (dogs) Smoking Status: Former smoker how long ago did patient quit smokin alcohol intake: never substance use type: does not use ROS ROS Narrative See HPI Physical Exam Const alert, oriented x3 and no apparent distress Constitutional Narrative: On oxygen. No respiratory distress. No conversational dyspnea. Appears older than stated age HEENT normocephalic, head/scalp atraumatic, hearing grossly normal bilaterally and moist oral mucous membranes HEENT Narrative: Dentures in place Eyes PERRL and EOMs intact bilaterally Eyes Narrative: Slight scleral injection noted Neck full ROM Chest Chest: abnormal inspection of the chest increased A-P diameter Resp normal respiratory effort and no retractions Auscultation: wheezes and diminished lung sounds; Negative for rales or rhonchi Cardio regular rate, regular rhythm, S1 normal heart sound, S2 normal heart sound, no murmurs, no rub and no gallops GI normal to inspection, nondistended, normoactive bowel sounds, soft to palpation, non-tender and non-distended Extremity normal to inspection General Extremity: Negative for clubbing or edema Skin no rashes or lesions noted Neuro oriented x3, CN's II-XII intact bilaterally and moves all extremities Psych affect normal Medical Records Data Medical Nutrition Assessment Dietitian: Malnutrition Criteria Met Start: 08/22/22 13:30 Freq: Status: Active Protocol: Document 08/22/22 13:30 (Rec: 08/22/22 13:30 [id number]) Nutrition Malnutrition Evidence of Malnutrition Exists Yes Malnutrition (severe): Acute Illness/Injury Evidenced By Suboptimal Energy Intake ( Severe),Weight Loss (Severe) Clinical Problem Acute Disease or Injury Related Malnutrition Etiology severe acute malnutrition r/t inadequate energy intake during acute illness Signs/Symptoms as evidenced by unintentional 15#/10% wt loss x 3 weeks; estimated PO intake meeting < 50% of estimated energy needs >1 week Status Active Problem Recommendation Dietitian Recommendations/Changes given signs/symptoms of acute malnutrition will liberalize diet to regular and adjust ONS to Ensure Plus High Protein 120mL 4x/day Lab / Micro Data Attestation: I reviewed the patient's lab results. Result Diagrams: 08/22/22 04:47 08/22/22 04:47 Labs: Laboratory Results - last 24 hr 08/21/22 14:58: Alkaline Phosphatase 93 08/21/22 16:56: Urine Color Yellow, Urine Clarity Clear, Urine pH 6.0, Ur Specific [place] 1.015, Urine Protein 30 H, Urine Glucose (UA) Normal, Urine Ketones 5 H, Urine Occult Blood 25 H, Urine Nitrite Negative, Urine Bilirubin Negative, Urine Urobilinogen Normal, Ur Leukocyte Esterase 25 H, Urine RBC 5-10 SEEN, Urine WBC 5-10 SEEN, Ur Squamous Epith Cells 5-10 SEEN, Urine Bacteria 1+, Fine Granular Casts 0-5 SEEN, Coarse Granular Casts 0-5 SEEN, Urine Mucus 1+ 08/22/22 04:47: Sodium 142, Potassium 4.8, Chloride 111 H, Carbon Dioxide 27.0, Anion Gap 4 L, BUN 10, Creatinine 0.67, Estim Creat Clear Calc 39.63, Est GFR (MDRD) Af Amer 111, Est GFR (MDRD) Non-Af 92, BUN/Creatinine Ratio 15.0, Glucose 175 H, Calcium 8.4 L, Magnesium 1.5 L, Total Bilirubin 0.40, AST 51 H, ALT 44, Alkaline Phosphatase 93, Total Protein 6.3 L, Albumin 2.8 L, Globulin 3.5, Albumin/Globulin Ratio 0.8 L 08/22/22 04:47: WBC 5.5, RBC 4.54, Hgb 14.0, Hct 42.6, MCV 93.8, MCH 30.8, MCHC 32.9, RDW Std Deviation 49.9 H, RDW Coeff of [place] 14.4, Plt Count 179, MPV 11.2, Immature Gran % (Auto) 0.900, Neut % (Auto) 89.6 H, Lymph % (Auto) 7.5 L, [place] % (Auto) 1.6, Eos % (Auto) 0.0, Baso % (Auto) 0.4, Absolute Neuts (auto) 4.9, Absolute Lymphs (auto) 0.41 L, Nucleated RBC % 0, Differential Comment SCANNED 08/22/22 04:47: PT 12.6, INR 1.0 Micro: Microbiology 08/21/22 16:56 Urine, Clean Catch Legionella Antigen - Final 08/21/22 16:56 Urine, Clean Catch Streptococcus pneumoniae Antigen (M - Final 08/21/22 15:48 Nasal Secretion SARS-CoV-2 & FLU Antigen (Rapid) - Final SARS-CoV-2 (COVID 19) Radiology Impression Chest X-Ray 08/21/22 15:50 IMPRESSION: Spiculated right suprahilar density 2.72 x 2.[address] without and with contrast if clinically warranted. Bibasilar fibrosis. Tortuous descending aorta. Moderate wedge compression fracture T12 age-indeterminate. Mild wedge compression fracture T9 age-indeterminate. Level 3 nonstandard communication initiated. Electronically Signed: Aneudy Dumont MD, ANNE at 16:14 EDT , ADDENDUM: 08/21/22 1659 IMPRESSION: Spiculated right suprahilar density 2.72 x 2.[address] without and with contrast if clinically warranted. Bibasilar fibrosis. Tortuous descending aorta. Moderate wedge compression fracture T12 age-indeterminate. Mild wedge compression fracture T9 age-indeterminate. Level 3 nonstandard communication initiated. N.B. : Kalin Amin MD, confirmed on 08/21/2022 16:52:05 (ET) that the healthcare facility has received the radiology report. Electronically Signed: Aneudy Dumont MD, ANNE at 16:14 EDT , Chest CTA 08/21/22 17:11 IMPRESSION: ASHD and chronic interstitial thickening with emphysematous changes.. Irregular airspace opacity in right upper lobe measuring approximately 2.8 x 2.3 cm possibly representing inflammatory disease however cannot exclude neoplasm particularly FATIMAH. Clinical correlation recommended. The lesion is amenable to CT-guided biopsy if desired. Small subcentimeter mediastinal nodes of uncertain significance Electronically Signed: Vance Mcconnell MD at 18:24 EDT , Charges/Coding Visit Charges Inpatient E&M: 63076 Init Hosp L3
--- NOTE | 2022-08-22 18:31 | PCM.PN.HOSP ---
Subjective Subjective Patient was seen and examined today, she is currently on low-flow nasal cannula oxygen, she has been seen by pulmonary medicine today. I have elected to stop the patient's antibiotics-there is no evidence of active pneumonia on her imaging studies. Patient stated that she quit smoking approximately 8 months ago. She denies having significant shortness of breath at home prior to her hospitalization here. Objective Data Objective Data Vital Signs: Vital Signs Temp Pulse Resp BP Pulse Ox O2 Del Method O2 Flow Rate 96.9 F L 96 20 H 129/64 H 96 Nasal Cannula 2 08/22/22 17:38 08/22/22 17:38 08/22/22 17:38 08/22/22 17:38 08/22/22 17:38 08/22/22 17:38 08/22/22 17:38 Oxygen Flow Rate (L/min) 2 Oxygen Delivery Method Nasal Cannula Weight: 63 kg Body Mass Index (BMI) 25.4 Intake & Output: Intake and Output for Last 24 Hours 08/20/22 08/21/22 08/22/22 23:59 23:59 23:59 Intake Total 555 / 555 300 / 300 Balance 555 / 555 300 / 300 Medical Nutrition Assessment Dietitian: Malnutrition Criteria Met Start: 08/22/22 13:30 Freq: Status: Active Protocol: Document 08/22/22 13:30 AG (Rec: 08/22/22 13:30 AG [id number]) Nutrition Malnutrition Evidence of Malnutrition Exists Yes Malnutrition (severe): Acute Illness/Injury Evidenced By Suboptimal Energy Intake ( Severe),Weight Loss (Severe) Clinical Problem Acute Disease or Injury Related Malnutrition Etiology severe acute malnutrition r/t inadequate energy intake during acute illness Signs/Symptoms as evidenced by unintentional 15#/10% wt loss x 3 weeks; estimated PO intake meeting < 50% of estimated energy needs >1 week Status Active Problem Recommendation Dietitian Recommendations/Changes given signs/symptoms of acute malnutrition will liberalize diet to regular and adjust ONS to Ensure Plus High Protein 120mL 4x/day Lab / Micro Data Result Diagrams: 08/22/22 04:47 08/22/22 04:47 Labs: Laboratory Results - last 24 hr 08/21/22 14:58: Alkaline Phosphatase 93 08/22/22 04:47: Sodium 142, Potassium 4.8, Chloride 111 H, Carbon Dioxide 27.0, Anion Gap 4 L, BUN 10, Creatinine 0.67, Estim Creat Clear Calc 39.63, Est GFR (MDRD) Af Amer 111, Est GFR (MDRD) Non-Af 92, BUN/Creatinine Ratio 15.0, Glucose 175 H, Calcium 8.4 L, Magnesium 1.5 L, Total Bilirubin 0.40, AST 51 H, ALT 44, Alkaline Phosphatase 93, Total Protein 6.3 L, Albumin 2.8 L, Globulin 3.5, Albumin/Globulin Ratio 0.8 L 08/22/22 04:47: WBC 5.5, RBC 4.54, Hgb 14.0, Hct 42.6, MCV 93.8, MCH 30.8, MCHC 32.9, RDW Std Deviation 49.9 H, RDW Coeff of [place] 14.4, Plt Count 179, MPV 11.2, Immature Gran % (Auto) 0.900, Neut % (Auto) 89.6 H, Lymph % (Auto) 7.5 L, [place] % (Auto) 1.6, Eos % (Auto) 0.0, Baso % (Auto) 0.4, Absolute Neuts (auto) 4.9, Absolute Lymphs (auto) 0.41 L, Nucleated RBC % 0, Differential Comment SCANNED 08/22/22 04:47: PT 12.6, INR 1.0 Micro: Microbiology 08/21/22 16:56 Urine, Clean Catch Legionella Antigen - Final 08/21/22 16:56 Urine, Clean Catch Streptococcus pneumoniae Antigen (M - Final 08/21/22 15:48 Nasal Secretion SARS-CoV-2 & FLU Antigen (Rapid) - Final SARS-CoV-2 (COVID 19) Physical Exam Const alert, oriented x3 and no apparent distress Constitutional Narrative: Patient appears older than her stated age General Appearance: cooperative, well kempt and well developed Orientation / Consciousness: awake, oriented to person, oriented to place and oriented to time HEENT normocephalic and moist oral mucous membranes Eyes PERRL, EOMs intact bilaterally and conjunctivae normal Neck supple, no JVD, thyroid normal and no carotid bruits General: trachea midline Resp no retractions and no use of accessory muscles Resp Narrative: Breath sounds are decreased bilaterally Auscultation: Negative for rales, rhonchi or wheezes Cardio regular rate, regular rhythm, S1 normal heart sound, S2 normal heart sound, no murmurs, no rub and no gallops GI normal to inspection, nondistended, normoactive bowel sounds, soft to palpation, non-tender and non-distended Extremity no clubbing, cyanosis or edema Skin no rashes or lesions noted General Skin Exam: no breakdown Neuro oriented x3, CN's II-XII intact bilaterally, no focal motor deficits and no sensory deficits noted Sensorium / Orientation: awake and alert Speech: speech normal Psych affect normal Assessment & Plan Assessment/Plan (1) Acute respiratory failure with hypoxia: PLAN: Plan 1. Acute hypoxia secondary to COVID-19 and COPD exacerbation-patient will remain on her current medications, she is receiving dexamethasone and remdesivir for her COVID-19. Pulse ox will be monitored. #2 lung mass-this will need to be further investigated as an outpatient #3 essential hypertension-continue present medications #4 COVID-19 infection-patient will remain on remdesivir and dexamethasone Charges/Coding Visit Charges Inpatient E&M: 11126 Subs Hosp L2
[2022-08-22] MEDS: Atorvastatin Calcium 10 MG Tablet PO (21:34)
[2022-08-22] MEDS: Gabapentin 300 MG Capsule PO (21:35)
[2022-08-22] MEDS: 0.9% Saline Lock 10 ML Syringe IV (21:42)
[2022-08-23] VITALS (17 sets, daily range): BP systolic 120–143; BP diastolic 62–73; PULSE 83–90; RESP 16–20; TEMP 36.1–36.9; O2SAT 84–100
[2022-08-23] MEDS: MELATONIN 3 MG TABLET PO ×2 (01:29→22:56)
[2022-08-23] MEDS: Ipratropium/Albuterol Sulfate 3 ML AMPUL.NEB INHALATION ×3 (06:33→19:26)
[2022-08-23 06:48] LABS: Anion Gap 6 (5-15); BUN 19 mg/dL (7-18); BUN/Creat Ratio 28.1 RATIO (10-20); Calcium,Total 8.8 mg/dL (8.5-10.1); Chloride 108 mmol/L (98-107); Creatinine, Serum 0.68 mg/dL (0.55-1.02); EST Glomerular Filtration Rate 91 mL/min (>60); Est Glom Filt Rate - Afr Amer 110 mL/min (>60); Estimated Creatinine Clearance 39.63 ml/min; Glucose 129 mg/dL (74-106); Potassium 3.9 mmol/L (3.5-5.1); Sodium Level 141 mmol/L (136-145)
--- NOTE | 2022-08-23 07:55 | PN.CC_ITS ---
Assessment & Plan Assessment/Plan (1) COPD exacerbation: (2) COVID-19: (3) Lung mass: PLAN: Plan RECOMMENDATIONS: 1. Agree with Decadron, bronchodilators, Remdesivir and mucolytic 2. Wean supplemental oxygen as tolerated. Walking oximetry prior to discharge 3. Outpatient complete PFT for quantification clarification of lung function 4. Potential CT-guided biopsy once recovered from current exacerbation 5. Likely discharge once patient can tolerate room air with ambulation 6. No need for Remdesivir on discharge. Complete 10 days of Decadron IMPRESSIONS: 1. Acute hypoxic respiratory insufficiency secondary to COVID-19 with probable COPD exacerbation Patient does not carry a formal diagnosis of COPD, but does have an extensive smoking history, bilateral emphysematous changes and a chronic productive cough with change in sputum. Patient is on minimal nasal cannula oxygen at this time. Will attempt a walking oximetry. Agree with Decadron therapy and Remdesivir. Patient is unvaccinated. Day #0 is suspected to be August 18, 2022. Patient will need an outpatient pulmonary function test for quantification clarification of lung function. Patient on an asthmatic regiment prior to admission. Patient will also need a walking oximetry prior to discharge. Patient can have Remdesivir discontinued at discharge and complete Decadron as an outpatient 2. Lung mass Patient with no significant mass on CT scan of the chest. Patient does have associated lymphadenopathy, but this may be secondary to COVID-19. Given ambiguity of lymphadenopathy, likely proceed with a CT-guided biopsy as an outpatient once she has recovered from problem #1. Did stressed to the patient that this could be consistent with malignancy and will require follow-up. Patient and her voiced understanding. This will likely be arranged in 3 to 4 weeks when patient follows up as an outpatient in our office 3. Hypertension/hyperlipidemia/advanced age/significant tobacco history/possible osteoporosis Complicates care, management, recovery and prognosis. Okay to continue with baseline medications for now. Patient is on alendronate, but denies a fo rmal diagnosis of osteoporosis. Steroids may exacerbate condition in the long- term. Subjective Subjective Patient did okay overnight. Patient subjectively feels slightly improved compared to yesterday. Patient does not report significant shortness of breath with moving around the bed, but has not been to the chair yet today. Patient confirmed that she does not use supplemental oxygen at home. Objective Data Objective Data Vital Signs: Vital Signs Temp Pulse Resp BP Pulse Ox O2 Del Method O2 Flow Rate 36.9 C 86 16 132/70 H 90 Nasal Cannula 4 08/23/22 06:00 08/23/22 06:00 08/23/22 06:00 08/23/22 06:00 08/23/22 07:22 08/23/22 07:22 08/23/22 07:22 Oxygen Flow Rate (L/min) 4 Oxygen Delivery Method Nasal Cannula Weight: 63 kg Body Mass Index (BMI) 25.4 Intake & Output: Intake and Output for Last 24 Hours 08/21/22 08/22/22 08/23/22 23:59 23:59 23:59 Intake Total 555 / 555 950 / 950 Balance 555 / 555 950 / 950 Medical Nutrition Assessment Dietitian: Malnutrition Criteria Met Start: 08/22/22 13:30 Freq: Status: Active Protocol: Document 08/22/22 13:30 AG (Rec: 08/22/22 13:30 [id number]) Nutrition Malnutrition Evidence of Malnutrition Exists Yes Malnutrition (severe): Acute Illness/Injury Evidenced By Suboptimal Energy Intake ( Severe),Weight Loss (Severe) Clinical Problem Acute Disease or Injury Related Malnutrition Etiology severe acute malnutrition r/t inadequate energy intake during acute illness Signs/Symptoms as evidenced by unintentional 15#/10% wt loss x 3 weeks; estimated PO intake meeting < 50% of estimated energy needs >1 week Status Active Problem Recommendation Dietitian Recommendations/Changes given signs/symptoms of acute malnutrition will liberalize diet to regular and adjust ONS to Ensure Plus High Protein 120mL 4x/day Lab / Micro Data Attestation: I reviewed the patient's lab results. Result Diagrams: 08/22/22 04:47 08/23/22 06:07 Labs: Laboratory Results - last 24 hr 08/23/22 06:07: Sodium 141, Potassium 3.9, Chloride 108 H, Carbon Dioxide 27.0, Anion Gap 6, BUN 19 H, Creatinine 0.68, Estim Creat Clear Calc 39.63, Est GFR (MDRD) Af Amer 110, Est GFR (MDRD) Non-Af 91, BUN/Creatinine Ratio 28.1 H, Glucose 129 H, Calcium 8.8 Micro: Microbiology 08/21/22 16:56 Urine, Clean Catch Legionella Antigen - Final 08/21/22 16:56 Urine, Clean Catch Streptococcus pneumoniae Antigen (M - F inal 08/21/22 15:48 Nasal Secretion SARS-CoV-2 & FLU Antigen (Rapid) - Final SARS-CoV-2 (COVID 19) Physical Exam Const alert, oriented x3 and no apparent distress Constitutional Narrative: On oxygen. No respiratory distress. No conversational dyspnea. Appears older than stated age HEENT normocephalic, head/scalp atraumatic, hearing grossly normal bilaterally and moist oral mucous membranes Eyes PERRL and EOMs intact bilaterally Eyes Narrative: Slight scleral injection noted Neck full ROM Chest Chest: abnormal inspection of the chest increased A-P diameter Resp normal respiratory effort and no retractions Resp Narrative: Better air exchange Auscultation: diminished lung sounds; Negative for rales, rhonchi or wheezes Cardio regular rate, regular rhythm, S1 normal heart sound, S2 normal heart sound, no murmurs, no rub and no gallops GI normal to inspection, nondistended, normoactive bowel sounds, soft to palpation, non-tender and non-distended Extremity normal to inspection General Extremity: Negative for clubbing or edema Skin no rashes or lesions noted Neuro oriented x3, CN's II-XII intact bilaterally and moves all extremities Psych affect normal Charges/Coding Visit Charges Inpatient E&M: 63674 Subs Hosp L2
[2022-08-23] MEDS: Isosorbide Mononitrate 30 MG Tablet PO (09:15)
[2022-08-23] MEDS: guaiFENesin 1,200 MG Tablet 1200 MG PO ×2 (09:15→23:03)
[2022-08-23] MEDS: Lisinopril 10 MG Tablet PO (09:15)
[2022-08-23] MEDS: Acetaminophen 325 MG Tablet 650 MG PO ×2 (09:15→15:20)
[2022-08-23] MEDS: Ensure Plus High Protein 120 ML LIQUID PO ×2 (09:15→22:56)
[2022-08-23] MEDS: Montelukast 10 MG Tablet PO (09:15)
[2022-08-23] MEDS: dexAMETHasone 4 MG Tablet 6 MG PO (09:15)
[2022-08-23] MEDS: Enoxaparin 40 MG/0.4 ML Syringe SC (09:17)
[2022-08-23] MEDS: amLODIPine 5 MG Tablet PO (09:17)
[2022-08-23 11:10] LABS: Magnesium 1.8 mg/dL (1.6-2.6)
--- NOTE | 2022-08-23 17:35 | PCM.PN.HOSP ---
Subjective Subjective Patient was seen and examined today, she does not appear in any respiratory distress, currently at the time my examination, patient was on 4 L of oxygen at rest. Objective Data Objective Data Vital Signs: Vital Signs Temp Pulse Resp BP Pulse Ox O2 Del Method O2 Flow Rate 97.8 F 88 16 120/65 96 Nasal Cannula 2 08/23/22 15:19 08/23/22 15:19 08/23/22 15:19 08/23/22 15:19 08/23/22 15:19 08/23/22 15:19 08/23/22 15:19 Oxygen Flow Rate (L/min) [ 4 AMBULATING with Oxygen #3] Oxygen Flow Rate (L/min) [ 3 AMBULATING with Oxygen #2] Oxygen Flow Rate (L/min) [ 2 AMBULATING with Oxygen #1] Oxygen Flow Rate (L/min) [At 2 REST with Oxygen] Oxygen Flow Rate (L/min) [At 0 REST on Room Air] Oxygen Flow Rate (L/min) 2 Oxygen Delivery Method Nasal Cannula Weight: 63 kg Body Mass Index (BMI) 25.4 Intake & Output: Intake and Output for Last 24 Hours 08/21/22 08/22/22 08/23/22 23:59 23:59 23:59 Intake Total 555 / 555 950 / 950 500 / 500 Balance 555 / 555 950 / 950 500 / 500 Medical Nutrition Assessment Dietitian: Malnutrition Criteria Met Start: 08/22/22 13:30 Freq: Status: Active Protocol: Document 08/22/22 13:30 (Rec: 08/22/22 13:30 [id number]) Nutrition Malnutrition Evidence of Malnutrition Exists Yes Malnutrition (severe): Acute Illness/Injury Evidenced By Suboptimal Energy Intake ( Severe),Weight Loss (Severe) Clinical Problem Acute Disease or Injury Related Malnutrition Etiology severe acute malnutrition r/t inadequate energy intake during acute illness Signs/Symptoms as evidenced by unintentional 15#/10% wt loss x 3 weeks; estimated PO intake meeting < 50% of estimated energy needs >1 week Status Active Problem Recommendation Dietitian Recommendations/Changes given signs/symptoms of acute malnutrition will liberalize diet to regular and adjust ONS to Ensure Plus High Protein 120mL 4x/day Lab / Micro Data Result Diagrams: 08/22/22 04:47 08/23/22 06:07 Labs: Laboratory Results - last 24 hr 08/23/22 06:07: Sodium 141, Potassium 3.9, Chloride 108 H, Carbon Dioxide 27.0, Anion Gap 6, BUN 19 H, Creatinine 0.68, Estim Creat Clear Calc 39.63, Est GFR (MDRD) Af Amer 110, Est GFR (MDRD) Non-Af 91, BUN/Creatinine Ratio 28.1 H, Glucose 129 H, Calcium 8.8 08/23/22 06:07: Magnesium 1.8 Micro: Microbiology 08/21/22 16:56 Urine, Clean Catch Legionella Antigen - Final 08/21/22 16:56 Urine, Clean Catch Streptococcus pneumoniae Antigen (M - Final 08/21/22 15:48 Nasal Secretion SARS-CoV-2 & FLU Antigen (Rapid) - Final SARS-CoV-2 (COVID 19) Physical Exam Narrative alert, oriented x3 and no apparent distress Constitutional Narrative: Patient appears older than her stated age General Appearance: cooperative, well kempt and well developed Orientation / Consciousness: awake, oriented to person, oriented to place and oriented to time HEENT normocephalic and moist oral mucous membranes Eyes PERRL, EOMs intact bilaterally and conjunctivae normal Neck supple, no JVD, thyroid normal and no carotid bruits General: trachea midline Resp no retractions and no use of accessory muscles Resp Narrative: Breath sounds are decreased bilaterally Auscultation: Negative for rales, rhonchi or wheezes Cardio regular rate, regular rhythm, S1 normal heart sound, S2 normal heart sound, no murmurs, no rub and no gallops GI normal to inspection, nondistended, normoactive bowel sounds, soft to palpation, non-tender and non-distended Extremity no clubbing, cyanosis or edema Skin no rashes or lesions noted General Skin Exam: no breakdown Neuro oriented x3, CN's II-XII intact bilaterally, no focal motor deficits and no sensory deficits noted Sensorium / Orientation: awake and alert Speech: speech normal Psych affect normal Assessment & Plan Assessment/Plan (1) Acute respiratory failure with hypoxia: PLAN: Plan 1. Acute hypoxia secondary to COVID-19 and COPD exacerbation-patient will remain on her current medications, she is receiving dexamethasone and remdesivir for her COVID-19. Pulse ox will be monitored. #2 lung mass-this will need to be further investigated as an outpatient #3 essential hypertension-continue present medications #4 COVID-19 infection-patient will remain on remdesivir and dexamethasone #5 acute severe protein and caloric malnutrition as evidenced by unintentional 15 pound / 10% weight loss x3 weeks and estimated p.o. intake meeting less than 50% of estimated energy needs x1 week, patient's diet will be liberalized to regular and Ensure Plus high-protein 120 cc 4 times a day will be given to the patient Charges/Coding Visit Charges Inpatient E&M: 08001 Subs Hosp L2
[2022-08-23] MEDS: Ondansetron 4 MG/2 ML Vial IV (18:15)
[2022-08-23] MEDS: Gabapentin 300 MG Capsule PO (22:56)
[2022-08-23] MEDS: 0.9% Saline Lock 10 ML Syringe IV (22:58)
[2022-08-23] MEDS: Atorvastatin Calcium 10 MG Tablet PO (23:03)
[2022-08-24] VITALS (8 sets, daily range): BP systolic 123–136; BP diastolic 62–65; PULSE 83–93; RESP 16–20; TEMP 36.4–36.7; O2SAT 87–98
[2022-08-24] MEDS: Ipratropium/Albuterol Sulfate 3 ML AMPUL.NEB INHALATION ×3 (00:46→12:46)
[2022-08-24 06:19] LABS: Absolute Lymphocyte Count 0.75 X10^3/uL (0.83-4.51); Absolute Neutrophil Count 6.6 X10^3/uL (2.0-7.7); Basophil# 0.01 X10^3/uL; Basophil% 0.1 % (0-1); Hematocrit 37.2 % (37-47); Hemoglobin 12.2 g/dL (12.0-15.0); Lymphocyte # 0.75 X10^3/ul (0.83-4.51); Lymphocyte % 9.4 % (19-41); Mean Corp Hgb Conc 32.8 g/dL (32-36); Mean Corpuscular Hgb 30.9 pg (27.0-32.0); Mean Corpuscular Volume 94.2 fL (81-99); Mean Platelet Vol. 10.8 fl (6.2-12.0); Monocyte# 0.55 X10^3/uL; Monocyte% 6.9 % (0-10); NRBC Flagged by Analyzer 0 % (0-5); Neutrophil # 6.62 X10^3/uL (2.7-7.7); Neutrophil % 82.7 % (47-70); Platelet Count 194 K/mm3 (150-450); RBC Distribution Width SD 49.1 fl (35.1-43.9); Red Blood Count 3.95 M/mm3 (4.2-5.4)
[2022-08-24 06:35] LABS: Anion Gap 5 (5-15); BUN 21 mg/dL (7-18); BUN/Creat Ratio 31.1 RATIO (10-20); Calcium,Total 9.1 mg/dL (8.5-10.1); Chloride 109 mmol/L (98-107); Creatinine, Serum 0.68 mg/dL (0.55-1.02); EST Glomerular Filtration Rate 91 mL/min (>60); Est Glom Filt Rate - Afr Amer 110 mL/min (>60); Estimated Creatinine Clearance 39.63 ml/min; Glucose 126 mg/dL (74-106); Potassium 3.7 mmol/L (3.5-5.1); Sodium Level 142 mmol/L (136-145)
[2022-08-24] MEDS: dexAMETHasone 4 MG Tablet 6 MG PO (09:26)
[2022-08-24] MEDS: Isosorbide Mononitrate 30 MG Tablet PO (09:27)
[2022-08-24] MEDS: Lisinopril 10 MG Tablet PO (09:27)
[2022-08-24] MEDS: guaiFENesin 1,200 MG Tablet 1200 MG PO (09:28)
[2022-08-24] MEDS: Montelukast 10 MG Tablet PO (09:28)
[2022-08-24] MEDS: amLODIPine 5 MG Tablet PO (09:28)
--- NOTE | 2022-08-24 09:50 | CASEMGMT ---
Addendum entered by Kristy Aguilera 08/24/22 10:08: Dr. Bansal saw pt and states d/t other underlying lung diagnoses(ie mass, COPD), he feels pt will still go home on oxygen at discharge and is ok with d/c of pt today. Dr. Duke aware and is agreeable to d/c. Pt had previously states no preference for DME. Pt still states the same and states no need for any further therapy at discharge. Pt aware to wear 2L continuously to keep oxygen level 89% or greater, voices understanding. Bill COLEMAN CM Original Note: Pt qualifies for 2L continuous and Dr. Smart aware. Per Dr. Smart, pt will likely stay until saturday to complete Remdisivir doses and hopefully not qualify for home oxygen at that time. CM to follow. Bill COLEMAN CM
[2022-08-24] MEDS: FLU VACC QS2022-23(65YR UP)/PF 240 MCG/0.7 ML SYRINGE IM (10:57)
--- NOTE | 2022-08-24 11:37 | PCM.PN.INT ---
Assessment & Plan Assessment/Plan (1) COPD exacerbation: (2) COVID-19: (3) Lung mass: PLAN: Plan RECOMMENDATIONS: 1. Complete a total of 10 days of Decadron therapy 2. Okay to discharge on supplemental oxygen with follow-up in our office in 3 weeks 3. Outpatient complete PFT for quantification clarification of lung function 4. Potential CT-guided biopsy once recovered from current exacerbation 5. Patient should continue isolation for a total of 14 days (September 01) IMPRESSIONS: 1. Acute hypoxic respiratory insufficiency secondary to COVID-19 with probable COPD exacerbation Patient does not carry a formal diagnosis of COPD, but does have an extensive smoking history, bilateral emphysematous changes and a chronic productive cough with change in sputum. Patient is on minimal nasal cannula oxygen at this time. Walking oximetry shows hypoxia is controlled with ambulation on 6 L or less. Patient can likely go home to complete a 10-day course of Decadron. Patient is unvaccinated. Day #0 is suspected to be August 18, 2022. Patient will need an outpatient pulmonary function test for quantification clarification of lung function. Patient does have multiple comorbid conditions such as COPD indicating that she may have a protracted course of supplemental oxygen. Likely not necessary to keep her in the hospital long-term 2. Lung mass Patient with no significant mass on CT scan of the chest. Patient does have associated lymphadenopathy, but this may be secondary to COVID-19. Given ambiguity of lymphadenopathy, likely proceed with a CT-guided biopsy as an outpatient once she has recovered from problem #1. Did stressed to the patient that this could be consistent with malignancy and will require follow-up. Patient and her voiced understanding. This will likely be arranged in 3 to 4 weeks when patient follows up as an outpatient in our office 3. Hypertension/hyperlipidemia/advanced age/significant tobacco history/possible osteoporosis Complicates care, management, recovery and prognosis. Okay to continue with baseline medications for now. Patient is on alendronate, but denies a formal diagnosis of osteoporosis. Steroids may exacerbate condition in the long-term, but typical course is only 10 days. Subjective Subjective Patient did well overnight. No acute issues were reported. Patient overall feels subjectively improved. Patient did have a walking oximetry prior in the day showing she required 2 L nasal cannula with exertion. Patient is willing to use supplemental oxygen at home if necessary. Objective Data Objective Data Vital Signs: Vital Signs Temp Pulse Resp BP Pulse Ox O2 Del Method O2 Flow Rate 36.7 C 85 16 123/63 H 87 Nasal Cannula 2 08/24/22 09:34 08/24/22 09:34 08/24/22 09:34 08/24/22 09:34 08/24/22 09:38 08/24/22 09:34 08/24/22 09:38 Oxygen Flow Rate (L/min) [ 4 AMBULATING with Oxygen #3] Oxygen Flow Rate (L/min) [ 3 AMBULATING with Oxygen #2] Oxygen Flow Rate (L/min) [ 2 AMBULATING with Oxygen #1] Oxygen Flow Rate (L/min) [At 2 REST with Oxygen] Oxygen Flow Rate (L/min) [At 0 REST on Room Air] Oxygen Flow Rate (L/min) 2 Oxygen Delivery Method Nasal Cannula Weight: 63 kg Body Mass Index (BMI) 25.4 Intake & Output: Intake and Output for Last 24 Hours 08/22/22 08/23/22 08/24/22 23:59 23:59 23:59 Intake Total 950 / 950 920 / 920 250 / 250 Balance 950 / 950 920 / 920 250 / 250 Medical Nutrition Assessment Dietitian: Malnutrition Criteria Met Start: 08/22/22 13:30 Freq: Status: Active Protocol: Document 08/22/22 13:30 (Rec: 08/22/22 13:30 [id number]) Nutrition Malnutrition Evidence of Malnutrition Exists Yes Malnutrition (severe): Acute Illness/Injury Evidenced By Suboptimal Energy Intake ( Severe),Weight Loss (Severe) Clinical Problem Acute Disease or Injury Related Malnutrition Etiology severe acute malnutrition r/t inadequate energy intake during acute illness Signs/Symptoms as evidenced by unintentional 15#/10% wt loss x 3 weeks; estimated PO intake meeting < 50% of estimated energy needs >1 week Status Active Problem Recommendation Dietitian Recommendations/Changes given signs/symptoms of acute malnutrition will liberalize diet to regular and adjust ONS to Ensure Plus High Protein 120mL 4x/day Lab / Micro Data Attestation: I reviewed the patient's lab results. Result Diagrams: 08/24/22 05:55 08/24/22 05:55 Labs: Laboratory Results - last 24 hr 08/24/22 05:55: WBC 8.0, RBC 3.95 L, Hgb 12.2, Hct 37.2, MCV 94.2, MCH 30.9, MCHC 32.8, RDW Std Deviation 49.1 H, RDW Coeff of [place] 14.0, Plt Count 194, MPV 10.8, Immature Gran % (Auto) 0.900, Neut % (Auto) 82.7 H, Lymph % (Auto) 9.4 L, [place] % (Auto) 6.9, Eos % (Auto) 0.0, Baso % (Auto) 0.1, Absolute Neuts (auto) 6.6, Absolute Lymphs (auto) 0.75 L, Nucleated RBC % 0 08/24/22 05:55: Sodium 142, Potassium 3.7, Chloride 109 H, Carbon Dioxide 28.0, Anion Gap 5, BUN 21 H, Creatinine 0.68, Estim Creat Clear Calc 39.63, Est GFR (MDRD) Af Amer 110, Est GFR (MDRD) Non-Af 91, BUN/Creatinine Ratio 31.1 H, Glucose 126 H, Calcium 9.1 Micro: Microbiology 08/21/22 16:56 Urine, Clean Catch Legionella Antigen - Final 08/21/22 16:56 Urine, Clean Catch Streptococcus pneumoniae Antigen (M - Final 08/21/22 15:48 Nasal Secretion SARS-CoV-2 & FLU Antigen (Rapid) - Final SARS-CoV-2 (COVID 19) Physical Exam Const alert, oriented x3 and no apparent distress Constitutional Narrative: On oxygen. No respiratory distress. No conversational dyspnea. Appears older than stated age HEENT normocephalic, head/scalp atraumatic, hearing grossly normal bilaterally and moist oral mucous membranes Eyes PERRL and EOMs intact bilaterally Eyes Narrative: Slight scleral injection noted Neck full ROM Chest Chest: abnormal inspection of the chest increased A-P diameter Resp normal respiratory effort and no retractions Resp Narrative: Better air exchange Auscultation: diminished lung sounds; Negative for rales, rhonchi or wheezes Cardio regular rate, regular rhythm, S1 normal heart sound, S2 normal heart sound, no murmurs, no rub and no gallops GI normal to inspection, nondistended, normoactive bowel sounds, soft to palpation, non-tender and non-distended Extremity normal to inspection General Extremity: Negative for clubbing or edema Skin no rashes or lesions noted Neuro oriented x3, CN's II-XII intact bilaterally and moves all extremities Psych affect normal Charges/Coding Visit Charges Inpatient E&M: 27558 Subs Hosp L2
--- NOTE | 2022-08-24 11:44 | PCM.DC ---
Discharge Instructions Diet Discharge Diet: No restrictions Activity Discharge Activity: Return to Normal Activity Weight Bearing Status: Full weight bearing Follow Up Care Test Results: Test results from this visit will be discussed in further detail at your follow-up appointment, if applicable. Discharge Plan Admission Admit Date/Time: 08/21/22 20:32 Primary Reason for Your Visit: hypoxia, COVID-19 Attending Provider: Aneudy Smart Primary Care Provider: Benji Monroy Consulting Providers: Poncho Bansal ; Jovan Landin ; Lee Peraza ; Westley Mcgowan ; Emma Killian POCKET SETTER ; Jeff Romano Instructions Patient Instructions: Coronavirus Disease 2019 (COVID-19): Overview, ED Pulmonary Nodule, Solitary Additional Instructions / Restrictions: Quarantine for 1 week at home Recommend COVID vaccination in 90 days Discharge Orders/Prescriptions Prescriptions: New dexamethasone 2 mg tablet 6 mg PO DAILY Qty: 24 0RF Rx Instructions: start on 08/24/22 Continued isosorbide mononitrate 30 mg tablet extended release 24 hr 30 mg PO DAILY Qty: 30 alendronate 70 mg tablet 70 mg PO MO hydroxyzine HCl 25 mg tablet 25 mg PO Q8H PRN (Reason: antihistamine ) amlodipine 5 mg tablet 5 mg PO DAILY Label Comments: TAKE 1 TABLET BY MOUTH EVERY DAY albuterol sulfate 1 PUFF inhaler 1 puff IH PRN PRN (Reason: Sob &/Or Wheezing) gabapentin 300 mg capsule 300 mg PO QHS montelukast 10 mg tablet 10 mg PO DAILY budesonide-formoterol 160-4.5 mcg/actuation HFA aerosol inhaler 1 puff INHALATION BID lisinopril 20 mg tablet 10 mg PO DAILY atorvastatin 10 mg tablet 10 mg PO QHS Qty: 90 3RF Referrals / Follow Up: Poncho Bansal MD [Med Staff - Active Staff] - See Referral Note (in 2 weeks-call for appointment) Benji Monroy MD [Primary Care Provider] - See Referral Note (in 2-3 weeks) Shira Gallardo MD [Med Staff - Active Staff] - Disposition Disposition (needs filled in before D/C Order can be placed): Home, Self Care
--- NOTE | 2022-08-24 12:00 | DS.PCM_ITS ---
Providers Date of Admission: 08/21/22 Date of Discharge: 08/24/22 Primary Care Physician: Dr. Benji Monroy MD Consultations 08/21/22 22:16 Consult: Merchandise Appraiser / Pulmonary Medicine Routine Consulting Provider: Pulmonary Medicine kevan Goldstein Reason for Consult: RUL lung mass EMERGENT Consult: No MD Notified: Yes Date Notified: 08/21/22 Time Notified: 20:42 Method of Notification: Text Reason For Visit: COVID, LUNG MASS Diagnosis Discharge Diagnosis (1) COPD exacerbation: Status: Chronic Code(s): J44.1 - Chronic obstructive pulmonary disease with (acute) exacerbation (2) COVID-19: Status: Inactive Code(s): U07.1 - COVID-19 (3) Lung mass: Status: Acute Code(s): R91.8 - Other nonspecific abnormal finding of lung field Plan 1. Acute hypoxia secondary to COVID-19 and COPD exacerbation-patient will remain on her current medications, she is receiving dexamethasone and remdesivir for her COVID-19. Pulse ox will be monitored. #2 lung mass-etiology unclear #3 essential hypertension-continue present medications #4 COVID-19 infection without pneumonia #5 acute severe protein and caloric malnutrition as evidenced by unintentional 15 pound / 10% weight loss x3 weeks and estimated p.o. intake meeting less than 50% of estimated energy needs x1 week, patient's diet will be liberalized to regular and Ensure Plus high-protein 120 cc 4 times a day will be given to the patient Medications at Discharge Home Medications alendronate 70 mg tablet 70 mg PO MO 04/13/19 hydroxyzine HCl 25 mg tablet 25 mg PO Q8H PRN antihistamine 04/13/19 albuterol sulfate 90 mcg/actuation aerosol inhaler 1 puff IH PRN PRN Sob &/Or Wheezing 04/17/19 isosorbide mononitrate 30 mg tablet,extended release 24 hr 30 mg PO DAILY #30 tabs 04/22/19 amlodipine 5 mg tablet 5 mg PO DAILY 04/12/20 atorvastatin 10 mg tablet 10 mg PO QHS #90 tabs 04/17/21 budesonide-formoterol HFA 160 mcg-4.5 mcg/actuation aerosol inhaler 1 puff inha lation BID 08/21/22 gabapentin 300 mg capsule 300 mg PO QHS 08/21/22 lisinopril 20 mg tablet 10 mg PO DAILY 08/21/22 montelukast 10 mg tablet 10 mg PO DAILY 08/21/22 dexamethasone 2 mg tablet 6 mg PO DAILY #24 tabs 08/24/22 Hospital Course Operations None Procedures None Summary of Care Provided Minutes Spent on Discharge: 31 Hospital Course: 72-year-old white female presented to the emergency room at [facility] with complaints of dizziness and feeling unwell for 3 to 4 days. She also complained of feeling short of breath. Patient was tested for COVID-19 in the emergency room and it was positive, CT of her chest was performed and it showed emphysematous changes and an irregular airspace opacity in the right upper lobe measuring 2.8 x 2.3 cm in diameter-neoplasm could not be ruled out. Patient was ambulated in the emergency room but on room air her oxygen dropped down to 80%. Patient was admitted to PCU, she was placed on dexamethasone and remdesivir, pulse ox was monitored. Patient was advised to follow-up as an outpatient to get a COVID vaccination, patient was not enthusiastic about this however. Pulmonary medicine saw the patient in consultation, they felt the remdesivir was of minimal benefit to the patient, on 08/24/2022 the patient underwent an assessment for home-going oxygen, at rest on room air her pulse ox was 87%, at rest on 2 L of oxygen it was 95%, on ambulating with 2 L of oxygen her pulse ox was 94%. She was discharged on 2 L of oxygen and expected to wear it at home and outside the home during her ADLs. On 08/24/2022, patient was seen and examined:alert, oriented x3 and no apparent distress Constitutional Narrative: Patient appears older than her stated age General Appearance: cooperative, well kempt and well developed Orientation / Consciousness: awake, oriented to person, oriented to place and oriented to time HEENT normocephalic and moist oral mucous membranes Eyes PERRL, EOMs intact bilaterally and conjunctivae normal Neck supple, no JVD, thyroid normal and no carotid bruits General: trachea midline Resp no retractions and no use of accessory muscles Resp Narrative: Breath sounds are decreased bilaterally Auscultation: Negative for rales, rhonchi or wheezes Cardio regular rate, regular rhythm, S1 normal heart sound, S2 normal heart sound, no murmurs, no rub and no gallops GI normal to inspection, nondistended, normoactive bowel sounds, soft to palpation, non-tender and non-distended Extremity no clubbing, cyanosis or edema Skin no rashes or lesions noted General Skin Exam: no breakdown Neuro oriented x3, CN's II-XII intact bilaterally, no focal motor deficits and no sensory deficits noted Sensorium / Orientation: awake and alert Speech: speech normal Psych affect normal Patient was felt to be stable for discharge on 08/24/2022. Weight / BMI Weight Weight: 63 kg Body Mass Index (BMI) 25.4 ABG / Lab / Microbiology Data Result Diagrams: 08/24/22 05:55 08/24/22 05:55 Microbiology: Microbiology 08/21/22 16:56 Urine, Clean Catch Legionella Antigen - Final 08/21/22 16:56 Urine, Clean Catch Streptococcus pneumoniae Antigen (M - Final 08/21/22 15:48 Nasal Secretion SARS-CoV-2 & FLU Antigen (Rapid) - Final SARS-CoV-2 (COVID 19) D/C Instructions Discharge Diet: No restrictions Weight Bearing Status: Full weight bearing Meaningful Use Info Meaningful Use Diagnoses (Choose all that apply): None applicable Discharge Plan Admission Admit Date/Time: 08/21/22 20:32 Primary Reason for Your Visit: hypoxia, COVID-19 Attending Provider: Aneudy Smart Primary Care Provider: Benji Monroy Consulting Providers: Poncho Bansal ; Jovan Landin ; Lee Peraza ; Westley Mcgowan ; Emma Killian NP ; Jeff Romano Instructions Patient Instructions: Coronavirus Disease 2019 (COVID-19): Overview, ED Pulmonary Nodule, Solitary Additional Instructions / Restrictions: Quarantine for 1 week at home Recommend COVID vaccination in 90 days Discharge Orders/Prescriptions Prescriptions: New dexamethasone 2 mg tablet 6 mg PO DAILY Qty: 24 0RF Rx Instructions: start on 08/24/22 Continued isosorbide mononitrate 30 mg tablet extended release 24 hr 30 mg PO DAILY Qty: 30 alendronate 70 mg tablet 70 mg PO MO hydroxyzine HCl 25 mg tablet 25 mg PO Q8H PRN (Reason: antihistamine ) amlodipine 5 mg tablet 5 mg PO DAILY Label Comments: TAKE 1 TABLET BY MOUTH EVERY DAY albuterol sulfate 1 PUFF inhaler 1 puff IH PRN PRN (Reason: Sob &/Or Wheezing) gabapentin 300 mg capsule 300 mg PO QHS montelukast 10 mg tablet 10 mg PO DAILY budesonide-formoterol 160-4.5 mcg/actuation HFA aerosol inhaler 1 puff INHALATION BID lisinopril 20 mg tablet 10 mg PO DAILY atorvastatin 10 mg tablet 10 mg PO QHS Qty: 90 3RF Referrals / Follow Up: Poncho Bansal MD [Med Staff - Active Staff] - See Referral Note (in 2 weeks-call for appointment) Benji Monroy MD [Primary Care Provider] - See Referral Note (in 2-3 weeks) Shira Gallardo MD [Med Staff - Active Staff] - Disposition Disposition (needs filled in before D/C Order can be placed): Home, Self Care Charges/Coding Visit Charges Inpatient E&M: 57220 Disch Hosp
== END 2022-08-24 14:02 | disposition home or self-care (01) | DRG 177 ==
LOC: ED 19:06 → PCU 21:17
PROVIDERS: Internal Medicine Critical Care Medicine; Emergency Provider Emergency Medicine; PCP Family Medicine; Visit Provider Internal Medicine
DX: U07.1 COVID-19 (principal); E43 Unspecified severe protein-calorie malnutrition; J44.1 Chronic obstructive pulmonary disease with (acute) exacerbation; J44.0 Chronic obstructive pulmonary disease with (acute) lower respiratory infection; I10 Essential (primary) hypertension; E87.6 Hypokalemia; E78.5 Hyperlipidemia, unspecified; Z87.891 Personal history of nicotine dependence; Z79.83 Long term (current) use of bisphosphonates; M81.0 Age-related osteoporosis without current pathological fracture; R91.8 Other nonspecific abnormal finding of lung field; Z28.310 Unvaccinated for COVID-19; R09.02 Hypoxemia
CPT/HCPCS: 36415; 71046; 71275; 80048; 80053; 81001; 83605; 83735; 84075; 84484; 85025; 85610; 87428; 87449; 93005; 94640; 97802; 99284; 99406; J7050; Q9967; 90662; A4216; J0248; J2405

== ENCOUNTER → 2022-08-29 | Outpatient (CLI) | payer MEDICARE, MEDICAID, SELFPAY ==
--- NOTE | 2022-08-29 16:07 | NEURO ---
NCS and/or EMG Patient Report Ordering Doctor: Hernandez Mcqueen DATE OF SERVICE: 08/29/22 Domenica presents for electrodiagnostic testing of the left upper limb. She reports numbness tingling and weakness in the left hand for the past 5 months. Electrodiagnostic findings: Left median motor nerve demonstrates normal distal latency, amplitude and conduction velocity. Normal left ulnar motor response, including conduction across the elbow. Normal left median ulnar F-wave. Sensory responses are within normal limits. Needle EMG testing was performed in the left upper limb. This showed no evidence of denervation with normal motor unit action potentials. Electrodiagnostic impression: This is a normal electrodiagnostic study in the left upper limb. There is no evidence for peripheral neuropathy, including carpal tunnel or cubital tunnel syndrome. There is no electrodiagnostic evidence for cervical radiculopathy.
== END | disposition home or self-care (01) ==
PROVIDERS: PCP Family Medicine; Referring Provider Family Medicine; Visit Provider Family Medicine
DX: G56.22 Lesion of ulnar nerve, left upper limb (principal)
CPT/HCPCS: 95886; 95910

== ENCOUNTER → 2022-10-03 | Outpatient (CLI) | payer MEDICARE, MEDICAID, SELFPAY ==
--- NOTE | 2022-10-03 10:00 | RAD_ITS ---
STUDY: X-RAY - RIGHT HUMERUS REASON FOR EXAM: Female, 72 years old. Pain. TECHNIQUE: 3 view(s) of the humerus. COMPARISON: None. FINDINGS: Osteopenia. Mild arthrosis of the glenohumeral and acromioclavicular joints. Normal soft tissues. RAD/Humerus min 2 Views IMPRESSION: Osteopenia with arthrosis of the glenohumeral and acromioclavicular joints. No acute abnormality or erosive changes. Electronically Signed: Sebastián Manrique, at 11:13 EST ,
[2022-10-03 12:12] LABS: Hemoglobin 13.6 g/dL (12.0-15.0); Mean Corp Hgb Conc 32.4 g/dL (32-36); Mean Corpuscular Hgb 31.7 pg (27.0-32.0); Mean Corpuscular Volume 97.9 fL (81-99); Mean Platelet Vol. 10.4 fl (6.2-12.0); Platelet Count 282 K/mm3 (150-450); RBC Distribution Width CV 14.8 % (11.6-14.6); RBC Distribution Width SD 53.6 fl (35.1-43.9); Red Blood Count 4.29 M/mm3 (4.2-5.4); White Blood Count 6.3 K/mm3 (4.4-11.0)
[2022-10-03 12:30] LABS: Anion Gap 5 (5-15); BUN 15 mg/dL (7-18); BUN/Creat Ratio 21.8 RATIO (10-20); Calcium,Total 9.6 mg/dL (8.5-10.1); Chloride 107 mmol/L (98-107); Creatinine, Serum 0.69 mg/dL (0.55-1.02); EST Glomerular Filtration Rate 89 mL/min (>60); Est Glom Filt Rate - Afr Amer 107 mL/min (>60); Glucose 83 mg/dL (74-106); Potassium 4.3 mmol/L (3.5-5.1); Sodium Level 140 mmol/L (136-145)
== END | disposition home or self-care (01) ==
PROVIDERS: PCP Family Medicine; Referring Provider Family Medicine; Visit Provider Family Medicine
DX: M79.601 Pain in right arm (principal); R91.8 Other nonspecific abnormal finding of lung field
CPT/HCPCS: 36415; 73060; 80048; 85027

== ENCOUNTER → 2022-10-11 | Outpatient (CLI) | payer MEDICARE, MEDICAID, SELFPAY ==
[2022-10-11] VITALS (10 sets, daily range): BP systolic 156–196; BP diastolic 73–94; PULSE 70–76; RESP 15–22; TEMP 36.7; O2SAT 92–96; BMI 25.7
--- NOTE | 2022-10-11 07:39 | RAD_ITS ---
STUDY: X-RAY CHEST REASON FOR EXAM: Female, 72 years old. Post lung biopsy TECHNIQUE: Portable upright inspiration and expiration views COMPARISON: 08/21/2022 FINDINGS: EKG leads overlie the chest Patient is status post right lung biopsy. Again there is no evidence of pneumothorax or mediastinal shift. Lungs are expanded with persistent suspicious right upper lobe nodule. No superimposed infiltrate or atelectasis. Normal size heart. Normal mediastinum and rosamaria. Normal visualized pulmonary arteries. There is atherosclerotic calcification of the aortic arch with tortuosity. There are diffuse degenerative changes of the visualized thoracic spine. Normal visualized ribs, clavicles, and shoulders. There is no demonstrated abnormality of the visualized soft tissue structures of the upper abdomen. RAD/Chest Insp/Exp 2 View IMPRESSION: No evidence of post biopsy pneumothorax. Electronically Signed: Dontrell Joy MD at 9:27 EST ,
--- NOTE | 2022-10-11 08:39 | CT_ITS ---
PROCEDURE: CT GUIDED CORE NEEDLE BIOPSY OF A right upper lobe LUNG LESION INDICATION: Female, 72 years old. LUNG MASS PHYSICIAN: Dr. OLIVIA Chanel CONSENT: Written informed consent was obtained having explained the risks, benefits and alternatives in detail with the patient who accepted the risks and agreed to proceed. Laboratory review and clinical assessment was performed. CONSCIOUS SEDATION PROTOCOL: The Drugs used were: 1 mg Versed, IV., and 25 mg Fentanyl, IV. The sedation time was: 15 minutes. Conscious sedation was done at 9:53 AM and terminated at 10:08 AM. The conscious sedation protocol was independently monitored. RADIATION DOSAGE (If Supplied By Facility): CTDIvol = ( 16 ) mGy, DLP = ( 222.59 ) mGycm Individualized dose optimization techniques were used for this CT. TECHNIQUE: The patient was placed in the prone position. A noncontrast CT was performed to localize the lesion in the right upper lobe . The skin surface was prepped and draped in a sterile fashion. 1% lidocaine was used for local anesthesia. Using CT guidance, a 20-gauge coaxial biopsy device was advanced to the periphery of the lesion. A total of 5 core specimens were obtained. The specimens were placed in a formalin solution. A post procedure CT demonstrated no adverse sequelae or pneumothorax. The patient tolerated the procedure well without adverse event. A negative biopsy does not exclude malignancy. Further imaging or clinical followup based on patient condition and degree of clinical suspicion for malignancy. Suggest rebiopsy, if biopsy results do not match with clinical scenario. CT/Biopsy/Inj or Needle Placement IMPRESSION: 1. CT directed core needle biopsy of the right upper lobe lung nodule using CT image guidance with image documentation as described. Pathology results are pending. 2. Conscious Sedation protocol utilized with independent monitoring. Electronically Signed: Juan Carlos Laguna MD at 11:11 EST ,
[2022-10-11 08:41] LABS: Platelet Count 267 K/mm3 (150-450)
[2022-10-11 08:53] LABS: International Normalized Ratio 1.1; Partial Thromboplast Time 30.8 Seconds (24.1-36.2); Prothrombin Time (Protime)PT. 13.8 SECONDS (11.7-14.9)
[2022-10-11] MEDS: fentaNYL 100 MCG/2 ML Ampul IV (09:53)
[2022-10-11] MEDS: Midazolam 2 MG/2 ML Syringe IV (09:53)
[2022-10-11] MEDS: Lidocaine 1% (20 ml mdv) 20 ML Vial INFILT (09:53)
--- NOTE | 2022-10-11 10:00 | ASPIGT_PTH ---
PATIENT: JUAN HAWKINS LOC: CT U#:[id number] AGE/SX: 72/F ROOM: RE10/11/[address]: Dr. Hernandez Mcqueen MD : 1950 BED: DIS: 10/11/2022 SPEC #: [id number] RECD: 10/11/22 10:30 STATUS: RAQUEL DAISY #: [id number] VERONICA: 10/11/22 10:[address]: Hernandez Mcqueen DEPT: SURGICAL PATHOLOGY RECD BY: Ankita Alvarez Tissues: Lung, NOS Procedures: FNA Specimen Adequacy Special Stain Group II Surgery Specimen Level IV Imprint (control) HEADER OPERATION: CT-guided right lung mass biopsy PRE-OP DIAGNOSIS: Right lung mass TISSUE SUBMITTED: Right lung mass 20-gauge x5 MICROSCOPIC DIAGNOSIS Right lung mass, CT-guided core biopsy: Non-small cell carcinoma, favor squamous cell carcinoma. See comment. CARRIE:freda 10/12/2022 COMMENT The specimen is evaluated at the time of biopsy by Dr. Dunn. Immediate Evaluation = Malignant cells present derived from non-small cell carcinoma. Immunohistochemistry ([id number]) supports the above diagnosis. Molecular studies on the tumor can be performed if clinically indicated. Please notify the laboratory if they are needed. Case has been reviewed in consultation with Dr. Butts who concurs with the above diagnosis. IDC:AM MICROSCOPIC DESCRIPTION Slides are reviewed. GROSS DESCRIPTION Received in fixative is one container labeled with the patient's name and designated right lung. The specimen consists of multiple elongated fragments of santana soft tissue that in aggregate measure 1.5 x 0.3 x 0.1 cm. The specimen is totally submitted in one cassette. Three touch imprints are prepared at the time of core biopsy. / SJ:freda 10/11/2022 TC:0 CPT: 46087, 47930
--- NOTE | 2022-10-11 10:00 | IMM_PTH ---
PATIENT: JUAN HAWKINS LOC: CT U#:[id number] AGE/SX: 72/F ROOM: RE10/11/[address]: Dr. Hernandez Mcqueen MD : 1950 BED: DIS: 10/11/2022 SPEC #: [id number] RECD: 10/11/22 13:37 STATUS: RAQUEL REQ #: [id number] VERONICA: 10/11/22 10:[address]: Hernandez Mcqueen DEPT: IMMUNOHISTOCHEMISTRY RECD BY: Vandana Galicia Tissues: Right lung, NOS Procedures: RCC (add) NAPSIN A (add) CK20 (add) CK5-6 (add) CK7 (add) CK8 (add) HEP PAR (add) WY (add) TTF1 (add) Pankeratin (add) P40 (add) ER (initial) PHYSICIAN & INSTITUTION [place] [id number] SPECIMEN INFORMATION: Tissue Source: Right lung Clinical Info: Right lung mass Specimen Number: [id number] CPT code: 24165, 80852 x11 METHODOLOGY: Deparaffinized sections of prefer/formalin-fixed tissue or PAP/DQ stained slides are incubated with monoclonal/polyclonal antibodies/oligonucleotide probes. Localization is made via biotin free immunoperoxidase method. Appropriate controls are performed and reacted as expected. Results on target cell population are indicated in the following table: RESULTS: ANTIBODY / CLONE RESULT ER (6F11) negative WY (1E2) negative AE1-3 (AE1/AE3/PCK26) positive CK7 (OV-TL12/30) negative CK8 (49dtroN62) positive, weak CK20 (KS20.8) negative TTF-1 (8G7G3/1) negative Napsin A (Rabbit Polyclonal) negative HepPar (OCh1E5) negative RCC (PN-15) negative CK5-6 (D5 & 1684) positive P40 (BC28) positive These tests were developed and their performance characteristics determined by [facility]. They may not have been cleared or approved by the U.S. Food and Drug Administration. The FDA has determined that such clearance or approval is not necessary. The above immunohistochemical/dualISH markers are ordered and reviewed by the Pathologist. INTERPRETATION: Right lung mass, CT-guided core biopsy: Non-small cell carcinoma, favor squamous cell carcinoma. Case has been reviewed in consultation with Dr. Butts who concurs with the above diagnosis. IDC:BE SJ:freda 10/12/2022
--- NOTE | 2022-10-11 10:30 | RAD_ITS ---
STUDY: X-RAY CHEST REASON FOR EXAM: Female, 72 years old. Post bx -- Immediately post lung biopsy TECHNIQUE: AP inspiration and expiration views. COMPARISON: Comparison is made with prior chest radiograph dated 08/21/2022.. FINDINGS: The patient status post right lung biopsy. No evidence for pneumothorax. RAD/Chest Insp/Exp 2 View IMPRESSION: No evidence of pneumothorax on the immediate postright lung biopsy radiographs. Electronically Signed: Juan Carlos Laguna MD at 12:22 EST ,
== END | disposition home or self-care (01) ==
PROVIDERS: PCP Family Medicine; Referring Provider Family Medicine; Visit Provider Family Medicine
DX: R91.8 Other nonspecific abnormal finding of lung field (principal); C34.91 Malignant neoplasm of unspecified part of right bronchus or lung; I35.0 Nonrheumatic aortic (valve) stenosis
CPT/HCPCS: 32408; 36415; 71046; 77012; 85049; 85610; 85730; 88172; 88305; 88313; 88341; 88342; 99156; J7050; A4216; C2613

== ENCOUNTER → 2022-10-18 | Outpatient (CLI) | payer MEDICARE, MEDICAID, SELFPAY ==
--- NOTE | 2022-10-18 08:30 | MRI_ITS ---
HISTORY: Lung cancer staging. TECHNIQUE: Multiplanar and multisequence MR images of the brain were obtained before and after the intravenous administration of 14 mL Clariscan. 677 images. COMPARISON: CT 11/20/2016. FINDINGS: BRAIN PARENCHYMA: No enhancing lesion in the brain parenchyma. Mild foci and small zones of increased T2 FLAIR signal in the bilateral cerebral white matter. No abnormal focus of restricted diffusion. No acute intracranial hemorrhage identified. CSF SPACES: Cerebral ventricles, cortical sulci, and other extra-axial CSF spaces within normal limits in size. No significant midline shift or other mass effect.No extra-axial fluid collection. VASCULAR SYSTEM: Major intracranial flow voids are maintained. PARANASAL SINUSES AND MASTOID AIR CELLS: No significant air fluid levels. OTHER: Small left parotid lymph nodes incidentally noted. Bilateral lens resections. MRI/Brain W/WO Contrast IMPRESSION: No evidence for enhancing intracranial mass. Chronic small vessel ischemic gliosis. No evidence for acute infarct or acute intracranial hemorrhage. Electronically Signed: Leila Rodney MD at 12:31 EST ,
== END | disposition home or self-care (01) ==
LOC: MRI 08:30
PROVIDERS: PCP Family Medicine; Visit Provider Internal Medicine Medical Oncology
DX: C34.11 Malignant neoplasm of upper lobe, right bronchus or lung (principal)
CPT/HCPCS: 70553; A9575

== ENCOUNTER → 2022-11-06 | Outpatient (CLI) | payer MEDICARE, MEDICAID, SELFPAY ==
--- NOTE | 2022-11-06 15:56 | CT_ITS ---
INDICATION: L PAROTID ACTIVITY ON PET, EVAL FOR MALIGNANCY EXAMINATION: CT Soft Tissue Neck W/ Contrast Injection TECHNIQUE: Helically acquired images were obtained of the neck following IV contrast. A radiation dose optimization technique was used for this scan. IV Contrast dosage and agent: 75 cc of Isovue-370 COMPARISON: None. FINDINGS: NASOPHARYNX: Unremarkable. SUPRAHYOID NECK: Unremarkable oropharynx, oral cavity, parapharyngeal space, and retropharyngeal space. INFRAHYOID NECK: Unremarkable larynx, hypopharynx, and supraglottis. THYROID: No focal lesions. SALIVARY GLANDS: Unremarkable. LYMPH NODES: Prominent intraparotid lymph node on the left measures 1.1 cm. Prominent left level 2B cervical lymph nodes, largest measuring 1 cm. VASCULAR STRUCTURES: Unremarkable. VISUALIZED PORTIONS OF THE ORBITS, PARANASAL SINUSES, MASTOID AIR CELLS AND SKULL BASE: Unremarkable. BONES: Degenerative changes of the cervical spine. THORACIC INLET: Severe emphysematous changes. CT/Soft Tissue Neck WITH Contrast IMPRESSION: Prominent intraparotid lymph node on the left measures 1.1 cm. Prominent left level 2B cervical lymph nodes, largest measuring 1 cm. Electronically Signed: Aleks Smith MD at 16:40 EST ,
== END | disposition home or self-care (01) ==
LOC: CT 15:54
PROVIDERS: PCP Family Medicine; Referring Provider Internal Medicine Medical Oncology; Visit Provider Internal Medicine Medical Oncology
DX: K11.8 Other diseases of salivary glands (principal)
CPT/HCPCS: 70491; Q9967

== ENCOUNTER → 2022-11-09 | Outpatient (CLI) | payer MEDICARE, SELFPAY ==
--- NOTE | 2022-11-10 08:03 | PFT ---
INTRODUCTION: The patient is a 72-year-old female that presents for pulmonary function studies secondary to a diagnosis of lung cancer. Respiratory therapy reported good patient effort. Bronchodilators were used during testing. INTERPRETATION: Forced expiration spirometry demonstrates the presence of a mild large airways obstructive ventilatory defect. There was no significant response to aerosolized bronchodilators. Spirograms are of good quality but do not plateau indicating slow emptying of the lungs. Body plethysmography was performed and revealed an elevated TLC and RV, indicative of underlying hyperinflation and air trapping. Diffusing capacity by single breath CO was within normal limits. IMPRESSION: Irreversible mild large airways obstructive ventilatory defect with associated hyperinflation and air trapping.
== END | disposition home or self-care (01) ==
LOC: PSN 07:50
PROVIDERS: PCP Family Medicine; Referring Provider Student in an Organized Health Care Education/Training Program; Visit Provider Student in an Organized Health Care Education/Training Program
DX: C34.10 Malignant neoplasm of upper lobe, unspecified bronchus or lung (principal)
CPT/HCPCS: 94060; 94726; 94729

== ENCOUNTER → 2023-03-11 | Outpatient (CLI) | payer MEDICARE, MEDICAID, SELFPAY ==
[2023-03-11 16:03] LABS: Absolute Lymphocyte Count 1.38 X10^3/uL (0.83-4.51); Absolute Neutrophil Count 3.4 X10^3/uL (2.0-7.7); Basophil# 0.05 X10^3/uL; Basophil% 0.9 % (0-1); Eosinophil# 0.24 X10^3/uL; Eosinophils% 4.2 % (0-5); Hematocrit 28.7 % (37-47); Hemoglobin 8.4 g/dL (12.0-15.0); Lymphocyte # 1.38 X10^3/ul (0.83-4.51); Lymphocyte % 24.1 % (19-41); Mean Corp Hgb Conc 29.3 g/dL (32-36); Mean Corpuscular Hgb 27.4 pg (27.0-32.0); Mean Corpuscular Volume 93.5 fL (81-99); Mean Platelet Vol. 10.8 fl (6.2-12.0); Monocyte% 10.5 % (0-10); NRBC Flagged by Analyzer 0 % (0-5); Neutrophil # 3.38 X10^3/uL (2.7-7.7); Neutrophil % 58.9 % (47-70); POSITIVE MORPHOLOGY YES; Platelet Count 277 K/mm3 (150-450); RBC Distribution Width SD 72.5 fl (35.1-43.9); Red Blood Count 3.07 M/mm3 (4.2-5.4); White Blood Count 5.7 K/mm3 (4.4-11.0)
[2023-03-11 16:07] LABS: Differential Indicated SCAN CRITERIA MET
== END | disposition home or self-care (01) ==
LOC: MFPLAB 12:14
PROVIDERS: PCP Family Medicine; Visit Provider Family Medicine
DX: D64.9 Anemia, unspecified (principal)
CPT/HCPCS: 36415; 71260; 85025; Q9967

== ENCOUNTER → 2023-03-11 | Outpatient (CLI) | payer MEDICARE, MEDICAID, SELFPAY ==
--- NOTE | 2023-03-11 07:45 | CT_ITS ---
STUDY: CT CHEST WITH CONTRAST REASON FOR EXAM: Female, 73 years old. ASSESS TREATMENT RESPONSE-LUNG CA. RADIATION DOSAGE (If Supplied By Facility): CTDIvol = ( 10.29 ) mGy, DLP = ( 267.13 ) mGycm TECHNIQUE: Transaxial imaging was performed following intravenous administration of IV 100mL Isovue-300. Multiplanar coronal and sagittal images were reformatted. Individualized dose optimization techniques were used for this CT. COMPARISON: Comparison is made with prior study dated August 21, 2022. FINDINGS: CHEST Hyperinflation. Diffuse emphysematous changes with bullous formation more prominent in the upper lobes. There is a 2.8 cm x 2.3 cm x 2 cm heterogeneous nodule in the posterior aspect of the right upper lobe laterally. Since prior study, this has become more solid in nature and less cystic. There is no demonstrated pleural abnormality. There are calcifications of the coronary arteries. Normal mediastinum. Normal hilar regions. Normal unenhanced pulmonary arteries. There is atherosclerotic calcification of the aortic arch with tortuosity and elongation of the aortic arch and descending thoracic aorta. There are degenerative changes of the thoracic spine. Stable compression fracture of the T11 vertebrae. There is no demonstrated abnormality of the visualized upper abdomen. CT/Chest WITH Contrast IMPRESSION: 2.8 sign by 2.3 cm x 2 cm heterogeneous nodule in the posterior aspect of the right upper lobe laterally. This nodular density is become more solid in appearance and less cystic as compared to prior study. Diffuse hyperinflation and emphysematous changes with bullous formation worse in the upper lobes. Electronically Signed: Juan Carlos Laguna MD at 14:19 EDT ,
== END | disposition home or self-care (01) ==
LOC: CT 07:37
PROVIDERS: PCP Family Medicine; Referring Provider Internal Medicine Medical Oncology; Visit Provider Internal Medicine Medical Oncology
DX: C34.11 Malignant neoplasm of upper lobe, right bronchus or lung (principal)
CPT/HCPCS: 71260; Q9967

== ENCOUNTER → 2023-03-19 | Outpatient (CLI) | payer MEDICARE, MEDICAID, SELFPAY ==
[2023-03-19 15:53] LABS: Absolute Lymphocyte Count 1.19 X10^3/uL (0.83-4.51); Absolute Neutrophil Count 3.3 X10^3/uL (2.0-7.7); Basophil# 0.03 X10^3/uL; Basophil% 0.5 % (0-1); Eosinophil# 0.49 X10^3/uL; Eosinophils% 8.5 % (0-5); Hemoglobin 8.3 g/dL (12.0-15.0); Lymphocyte # 1.19 X10^3/ul (0.83-4.51); Lymphocyte % 20.7 % (19-41); Mean Corp Hgb Conc 28.6 g/dL (32-36); Mean Corpuscular Hgb 28.1 pg (27.0-32.0); Mean Corpuscular Volume 98.3 fL (81-99); Mean Platelet Vol. 10.3 fl (6.2-12.0); Monocyte# 0.72 X10^3/uL; Monocyte% 12.5 % (0-10); NRBC Flagged by Analyzer 0 % (0-5); Neutrophil # 3.27 X10^3/uL (2.7-7.7); Neutrophil % 56.9 % (47-70); POSITIVE MORPHOLOGY YES; Platelet Count 281 K/mm3 (150-450); RBC Distribution Width CV 25.1 % (11.6-14.6); RBC Distribution Width SD 86.2 fl (35.1-43.9); RET-HE 28.3 pg (30-35); Red Blood Count 2.95 M/mm3 (4.2-5.4); Reticulocyte Count 5.65 % (0.5-1.5); White Blood Count 5.8 K/mm3 (4.4-11.0)
[2023-03-19 15:57] LABS: Differential Indicated SCAN CRITERIA MET
[2023-03-19 16:24] LABS: Ferritin 71 ng/mL (8-252); Iron 250 ug/dL (50-170); Iron Binding Capacity,Total 394 ug/dL (250-450); LDH 247 U/L (84-246); PERCENT IRON SATURATION 63.5 % (15.0-55.0)
[2023-03-19 16:50] LABS: Anisocytosis 2+; Differential Comment SCANNED
[2023-03-19 16:51] LABS: HIV - WCH Non-Reactive (Nonreactive)
[2023-03-19 19:26] LABS: Erythrocyte Sedimentation Rate 55 mm/hr (0-30)
[2023-03-21 14:09] LABS: Anti-Centromere B Ab <0.2 AI (0.0-0.9); Anti-Chromatin <0.2 AI (0.0-0.9); Anti-Jo <0.2 AI (0.0-0.9); Anti-Scleroderma-70 AB <0.2 AI (0.0-0.9); Anti-dsDNA Ab <1 IU/mL (0-9); RNP Ab <0.2 AI (0.0-0.9); SJOGREN'S Anti-SS-A test < 0.2 AI (0.0-0.9); SJOGREN'S Anti-SS-B test < 0.2 AI (0.0-0.9); Smith Ab <0.2 AI (0.0-0.9)
[2023-03-21 16:10] LABS: Endomysial Antibody IgA Negative (Negative); Immunoglobulin A 293 mg/dL (64-422); t-Transglutaminase IgA <2 U/mL (0-3)
[2023-03-24 00:06] LABS: Cytoplasmic Ab (C-ANCA) <1:20 titer (Neg:<1:20); Immunoglobulin A 291 mg/dL (64-422); Immunoglobulin E 688 IU/mL (6-495); Immunoglobulin G 711 mg/dL (586-1602); Perinuclear Ab (P-ANCA) <1:20 titer (Neg:<1:20)
== END | disposition home or self-care (01) ==
LOC: LAB 15:03
PROVIDERS: PCP Family Medicine; Referring Provider Internal Medicine Gastroenterology; Visit Provider Internal Medicine Gastroenterology
DX: K92.2 Gastrointestinal hemorrhage, unspecified (principal); C34.10 Malignant neoplasm of upper lobe, unspecified bronchus or lung; R19.5 Other fecal abnormalities; E78.5 Hyperlipidemia, unspecified
CPT/HCPCS: 36415; 82728; 82784; 82785; 83516; 83540; 83550; 83615; 85025; 85045; 85652; 86140; 86225; 86235; 86255; 86256; 86703

== ENCOUNTER → 2023-03-26 | Outpatient (CLI) | payer MEDICARE, MEDICAID, SELFPAY ==
--- NOTE | 2023-03-26 08:50 | RAD_ITS ---
PROCEDURE: SMALL BOWEL SERIES DATE OF EXAMINATION: March 26, 2023.. INDICATION: Female, 73 years old. Constipation PHYSICIAN: Juan Carlos Laguna M.D. FLUOROSCOPY TIME (if supplied): (0:01) minutes/seconds. 8 images were obtained. TECHNIQUE: Radiographic and fluoroscopic images were taken of the small intestine following the ingestion of barium. COMPARISON: None. FINDINGS: A preliminary supine KUB was obtained. There is an unremarkable bowel gas pattern. A large amount of fecal material is present throughout the colon. Phleboliths are present within the pelvis. The lung bases are unremarkable. The osseous structures are normal. The patient orally ingested approximately 12 ounces of thin barium Normal visualized fundus, body, and antrum of the stomach. Normal duodenal bulb, C-loop, and proximal jejunum. Normal visualized mucosal folds of the jejunum and ileum. There are no demonstrated dilatations, strictures, or masses of the small intestine. There is no mass displacement of the loops of small intestine. There is a normal motor pattern with barium reaching the colon within approximately 60 minutes. Spot films under fluoroscopic observation demonstrated a normal terminal ileum and ileocecal valve. RAD/Small Bowel Series Only IMPRESSION: Normal small bowel series. Electronically Signed: Juan Carlos Laguna MD at 14:36 EDT ,
== END | disposition home or self-care (01) ==
LOC: RAD 08:40
PROVIDERS: PCP Family Medicine; Referring Provider Internal Medicine Gastroenterology; Visit Provider Internal Medicine Gastroenterology
DX: R19.5 Other fecal abnormalities (principal); K92.2 Gastrointestinal hemorrhage, unspecified
CPT/HCPCS: 74250

== ENCOUNTER → 2023-04-17 | Outpatient (CLI) | payer MEDICARE, MEDICAID, SELFPAY ==
[2023-04-17 08:38] LABS: Absolute Lymphocyte Count 0.78 X10^3/uL (0.83-4.51); Absolute Neutrophil Count 4.3 X10^3/uL (2.0-7.7); Basophil# 0.05 X10^3/uL; Basophil% 0.8 % (0-1); Eosinophil# 0.45 X10^3/uL; Eosinophils% 7.3 % (0-5); Hematocrit 36.6 % (37-47); Hemoglobin 10.8 g/dL (12.0-15.0); Lymphocyte # 0.78 X10^3/ul (0.83-4.51); Lymphocyte % 12.7 % (19-41); Mean Corp Hgb Conc 29.5 g/dL (32-36); Mean Corpuscular Hgb 30.6 pg (27.0-32.0); Mean Corpuscular Volume 103.7 fL (81-99); Mean Platelet Vol. 9.7 fl (6.2-12.0); Monocyte# 0.54 X10^3/uL; Monocyte% 8.8 % (0-10); NRBC Flagged by Analyzer 0 % (0-5); Neutrophil # 4.28 X10^3/uL (2.7-7.7); Neutrophil % 69.9 % (47-70); POSITIVE MORPHOLOGY YES; Platelet Count 225 K/mm3 (150-450); RBC Distribution Width CV 17.1 % (11.6-14.6); RBC Distribution Width SD 65.9 fl (35.1-43.9); Red Blood Count 3.53 M/mm3 (4.2-5.4); Reticulocyte Count 2.87 % (0.5-1.5); White Blood Count 6.1 K/mm3 (4.4-11.0)
[2023-04-17 08:45] LABS: Differential Indicated SCAN CRITERIA MET
[2023-04-17 08:56] LABS: Ferritin 38 ng/mL (8-252); Iron 30 ug/dL (50-170); Iron Binding Capacity,Total 410 ug/dL (250-450); LDH 225 U/L (84-246)
[2023-04-17 09:03] LABS: Anisocytosis 2+; Differential Comment SCANNED; Macrocytosis 1+; Ovalocyte RARE
[2023-04-18 15:08] LABS: Albumin 3.2 g/dL (2.9-4.4); Alpha-1-Globulins 0.3 g/dL (0.0-0.4); Gamma Globulin 1.1 g/dL (0.4-1.8); Haptoglobin 245 mg/dL (42-346); Immunoglobulin A 392 mg/dL (64-422); Immunoglobulin G 957 mg/dL (586-1602); Immunoglobulin M 71 mg/dL (26-217); PROEL- TOTAL PROTEIN 6.6 g/dL (6.0-8.5)
== END | disposition home or self-care (01) ==
PROVIDERS: PCP Family Medicine; Referring Provider Internal Medicine Gastroenterology; Visit Provider Internal Medicine Gastroenterology
DX: D64.9 Anemia, unspecified (principal)
CPT/HCPCS: 36415; 82728; 82784; 83010; 83540; 83550; 83615; 84165; 85025; 85045; 86334

== ENCOUNTER → 2023-05-08 | Outpatient (CLI) | payer MEDICARE, MEDICAID, SELFPAY ==
[2023-05-08 11:04] LABS: ALB/GLOB Ratio 0.9 RATIO (0.9-2.4); AST(SGOT) 24 U/L (15-37); Alanine Aminotransfer ALT/SGPT 25 U/L (13-56); Alkaline Phosphatase 104 U/L (45-117); Anion Gap 5 (5-15); BUN 26 mg/dL (7-18); BUN/Creat Ratio 36.9 RATIO (10-20); Calcium,Total 8.8 mg/dL (8.5-10.1); Chloride 108 mmol/L (98-107); EST Glomerular Filtration Rate 86 mL/min (>60); Est Glom Filt Rate - Afr Amer 104 mL/min (>60); Globulin 3.4 g/dL (2.2-4.2); Glucose 87 mg/dL (74-106); Potassium 5.1 mmol/L (3.5-5.1); Protein, Total 6.4 g/dL (6.4-8.2); Sodium Level 139 mmol/L (136-145)
== END | disposition home or self-care (01) ==
LOC: MFPLAB 09:31
PROVIDERS: PCP Family Medicine; Visit Provider Family Medicine
DX: R42 Dizziness and giddiness (principal)
CPT/HCPCS: 36415; 80053

== ENCOUNTER 2023-05-14 10:54 | Outpatient (RCR) | payer MEDICARE, MEDICAID, SELFPAY | END 2023-05-27 23:59 | LOC: NS 10:54 | PROVIDERS: PCP Family Medicine; Visit Provider Internal Medicine Medical Oncology | DX: Z71.3 Dietary counseling and surveillance (principal) ==

== ENCOUNTER 2023-06-03 11:57 | Emergency (ER) | payer MEDICARE, MEDICAID, SELFPAY ==
[2023-06-03 11:57] VITALS: BP 118/79; PULSE 90; RESP 18; TEMP 36; O2SAT 97
[2023-06-03 12:09] VITALS: BP 121/68; PULSE 79; RESP 16; TEMP 36.6; O2SAT 96; BMI 26.5
--- NOTE | 2023-06-03 12:11 | EKG12_ITS ---
Test Reason : Blood Pressure : / mmHG Vent. Rate : 076 BPM Atrial Rate : 076 BPM P-R Int : 156 ms QRS Dur : 084 ms QT Int : 396 ms P-R-T Axes : 044 014 102 degrees QTc Int : 445 ms Normal sinus rhythm ST & T wave abnormality, consider anterolateral ischemia Abnormal ECG Confirmed by AILYN EATON, WAI ([id number]), sports editor JACQUE RINCON ([id number]) on 06/04/2023 9:40:03 AM Referred By: TIN Confirmed By:WAI ROBERTSON MD
[2023-06-03 12:13] VITALS: O2SAT 97
--- NOTE | 2023-06-03 12:14 | ED.VIS.DYS ---
HPI History of Present Illness Chief Complaint: Shortness of Breath Detail of Chief Complaint: Dyspnea, right-sided chest pain with pleuritic component Informant: patient Onset/Context/Timing Onset: Days Context: sudden Timing: Continuous and Waxes and wanes Quality: Positive for Dyspnea on exertion; Negative for Orthopnea, PND or Wheezing Current Severity: Mild Maximum Severity: Severe Worsened by: - (Patient unable to walk more than 5 to 10 feet prior to stopping.) Relieved by: Nothing Associated Symptoms cough and sweats; Negative for rhinorrhea, post nasal drip, ear pain, fever, sore throat, subjective, chills, clear sputum, white sputum, yellow sputum or green sputum Chest Pain: Positive for Continuous and Sharp Narrative Narrative: Patient is a 73-year-old woman who who was diagnosed with 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 On August 21, 2022 she was found to have a right upper lobe nodule with cavitation. She underwent bronchoscopy and PET scan. PET scan revealed activity in the left parotid gland, 2 right upper lobe nodules with one infiltrating the mediastinum. She was evaluated by thoracic surgery and felt not to be a surgical candidate. For this reason patient was started on chemo and radiation. Patient was a smoker. She no longer smokes. She presents today because of sharp right-sided chest pain that does have a pleuritic component and shortness of breath. She denies productive cough. She does report slight cough. She denies history of PE or DVT. She denies leg pain, swelling discoloration. She denies black or maroon-colored stool. [facility] Medical History Alopecia Anemia Asthma Benign neoplasm of colon Chronic constipation Contact with and (suspected) exposure to other viral communicable diseases COPD (chronic obstructive pulmonary disease) COVID-19 Essential hypertension Fatigue Generalized weakness Hyperlipidemia Hypokalemia Mild aortic stenosis Nicotine dependence Pneumonia Home Medications albuterol sulfate 90 mcg/actuation aerosol inhaler 1 puff IH PRN PRN Sob &/Or Wheezing 04/17/19 [History Last Taken Unknown] atorvastatin 10 mg tablet 10 mg PO QHS #90 tabs 04/17/21 [Rx Last Taken Unknown] montelukast 10 mg tablet 10 mg PO DAILY 08/21/22 [History Last Taken Unknown] lisinopril 20 mg tablet 20 mg PO DAILY 12/06/22 [History Last Taken Unknown] ondansetron 8 mg disintegrating tablet 8 mg PO Q8H PRN nausea and vomiting #30 tabs 01/07/23 [Rx Last Taken Unknown] Hair prostethesis #1 ea 01/17/23 [Rx Last Taken Unknown] MAGIC MOUTH WASH (BMX) 180 mL suspension 15 ml PO .qid PRN pain #180 mL 01/23/23 [Rx Last Taken Unknown] omeprazole 20 mg capsule,delayed release 20 mg PO DAILY #30 caps 02/25/23 [Rx Last Taken Unknown] budesonide-formoterol HFA 160 mcg-4.5 mcg/actuation aerosol inhaler (Symbicort) 2 puff inhalation BID 03/18/23 [History Last Taken Unknown] famotidine 20 mg tablet 20 mg PO DAILY 03/18/23 [History Last Taken Unknown] gabapentin 300 mg capsule 300 mg PO QHS 03/18/23 [History Last Taken Unknown] hydroxyzine HCl 25 mg tablet 25 mg PO QHS 03/18/23 [History Last Taken Unknown] furosemide 20 mg tablet (Lasix) 20 mg PO DAILY 04/10/23 [History Last Taken Unknown] colestipol 1 gram tablet 1 g PO BID #60 tabs 04/16/23 [Rx Last Taken Unknown] hydrocodone-acetaminophen 5-325mg 5mg-325mg 1 tab PO Q6H PRN PRN Pain 3 days #10 TABLETS 06/03/23 [Rx Last Taken Unknown] Allergy/AdvReac Type Severity Reaction Status Date / Time watermelon Allergy Intermediate Hives Verified 06/03/23 14:12 Family History Father Cancer spinal Mother Alzheimer's disease Brother Pacemaker Surgical History History of amputation of finger of right hand History of appendectomy History of breast surgery History of cataract extraction History of D&C History of hysterectomy History of toe surgery History of tonsillectomy Social History household members: spouse pets and animals: Yes (dogs) Smoking Status: Former smoker how long ago did patient quit smokin alcohol intake: former substance use type: does not use ROS ROS ED Constitutional Constitutional ED: Reports sweats and weight loss; Denies chills or fever(s) Eyes Eyes: Denies blurry vision, change in vision or diplopia ENT ENT ED: Denies ear pain, rhinorrhea or sore throat Cardiovascular Cardiovascular: Reports chest pain; Denies orthopnea, palpitations, paroxysmal nocturnal dyspnea or racing heartbeat Respiratory/Chest Respiratory/Chest: Reports cough and dyspnea on exertion; Denies dyspnea, orthopnea, paroxysmal nocturnal dyspnea or sputum Gastrointestinal Gastrointestinal: Denies abdominal pain, melena, nausea or vomiting Genitourinary Genitourinary ED: Denies dysuria, hematuria or urinary frequency Musculoskeletal Musculoskeletal: Denies arthralgias, back pain, myalgias or neck pain Integumentary Denies abscess, Abrasions or rash Neurologic Neurologic: Denies headache(s) or paresthesias Endocrine Endocrinology: Denies cold intolerance or heat intolerance Hematologic/Lymphatic Hematologic/Lymphatic: Denies easy bleeding or easy bruising EXAM Physical Exam Const Vital Signs: 06/03/23 11:57 06/03/23 12:09 06/03/23 12:13 Temperature 96.8 F L 98 F Temperature Source Temporal Oral Pulse Rate 90 79 Respiratory Rate 18 16 Respiratory Effort Normal Blood Pressure 118/79 121/68 H Blood Pressure Mean 92 85 Pulse Ox 97 96 Oxygen Delivery Method Room Air Room Air Room Air 06/03/23 15:15 Temperature 98 F Temperature Source Oral Pulse Rate 68 Respiratory Rate 16 Respiratory Effort Blood Pressure 120/62 Blood Pressure Mean 81 Pulse Ox 100 Oxygen Delivery Method Room Air Positive well nourished and well developed Constitutional Narrative: Patient is tachypneic. Her respiratory rate is greater than 18 that was documented by triage. She is not hypoxic. General Appearance ED: well developed; Negative for pallor HEENT Reports moist mucous membranes HEENT Narrative: Head is normocephalic. Ears normal. Nares patent. Posterior pharynx is normal. atraumatic Eyes PERRL and EOMs intact bilaterally General Eye ED: Negative for pale conjunctiva or scleral icterus Neck no lymphadenopathy, supple, no meningeal signs and no JVD Neck Narrative: Trachea is midline. There is no cervical lymphadenopathy. Resp No normal respiratory effort and No clear to auscultation bilaterally Resp Narrative: Breath sounds are slightly diminished on right side compared to left. Auscultation: rales right base Cardio regular rate, regular rhythm, S1 normal heart sound, S2 normal heart sound and no murmurs GI non-tender, non-distended and no masses Auscultation: normoactive bowel sounds Palpation: soft Back/Spine no CVA tenderness Extremity normal to inspection Extremity Narrative: There is no asymmetry, swelling, discoloration, leg vein distention, palpable cords or tenderness along the distribution of the deep venous system. Neuro oriented x3, CN's II-XII intact bilaterally and no sensory deficits noted Sensorium / Orientation: alert Speech: speech normal Motor Exam: strength 5/5 throughout Psych Mood & Affect: depressed Thought Process: normal thought process Skin no wounds and skin turgor normal General Skin Exam: Negative for jaundice or pallor MDM MDM MDM Narrative Medical decision making narrative: Frontal diagnosis includes pneumothorax, pneumonia, pulmonary embolus atypical cardiac presentation. Troponin was obtained to assess for right heart strain if she is found to have a PE. Doubt it is cardiac. If chest x-ray is unremarkable does not explain her symptoms will obtain a CTA of her chest because she is at risk for pulmonary embolus. CBC to assess H&H and white count. BMP to assess renal function in the event patient needs a CTA. History & Record Review Additional record(s) reviewed:: Prior outpatient record (Dr. Goodwin's office visit was summarized in the HPI narrative.), Prior ED visit and Prior labs Lab Data Attestation: I reviewed the patient's lab results. Lab results narrative: BC is remarkable for macrocytic anemia. Patient slightly more anemic than prior results. Troponin is normal. Labs: Laboratory Results - last 24 hr 06/03/23 12:16 WBC 6.2 RBC 3.17 L Hgb 9.9 L Hct 32.7 L MCV 103.2 H MCH 31.2 MCHC 30.3 L RDW Std Deviation 53.5 H RDW Coeff of Eloisa 14.2 Plt Count 192 MPV 10.7 Immature Gran % (Auto) 0.600 Neut % (Auto) 74.4 H Lymph % (Auto) 13.7 L Craig % (Auto) 6.5 Eos % (Auto) 4.2 Baso % (Auto) 0.6 Absolute Neuts (auto) 4.6 Absolute Lymphs (auto) 0.85 Nucleated RBC % 0 Sodium 139 Potassium 3.8 Chloride 108 H Carbon Dioxide 25.0 Anion Gap 6 BUN 24 H Creatinine 0.80 Estim Creat Clear Calc 48.80 Est GFR (MDRD) Af Amer 90 Est GFR (MDRD) Non-Af 74 BUN/Creatinine Ratio 30.0 H Glucose 136 H Calcium 8.8 Troponin I High Sens 14 Radiography Chest X-Ray - ED: 2 View and Read by ED Physician (2 view chest x-ray independent reviewed interpreted by me at 1238 as unchanged from September 2022. There appears to be a nodule right upper lobe. There is chronic changes noted. Cardiac silhouette and size unremarkable. Osseous structures appear unremarkable. The mediastinum slightly widened. ) Diagnostic Testing: Clinical Impression(s) from Imaging Studies Chest X-Ray 06/03/23 12:30 IMPRESSION: 3 cm x 3.1 cm nodule in the medial aspect of the right upper lobe. Hyperinflation and mild scarring at the lung bases likely more prominent at the left lung base. Electronically Signed: Juan Carlos Laguna MD at 12:46 EDT , Chest CTA 06/03/23 12:42 IMPRESSION: No evidence of pulmonary embolism. Stable 2.3 cm x 1.7 cm mass in the posterior aspect of the right upper lobe. Electronically Signed: Juan Carlos Laguna MD at 13:48 EDT , ReadRadiology report for chest x-ray and CAT scan were. There are no acute findings. EKG Initial EKG: Attestation: I personally reviewed and interpreted this EKG as follows: Interpretation: Sinus Rhythm (Rate is 76. [place] interval is 156 ms. Cures duration 84 ms. QT durations are 96 ms. Odell is normal. There is ST-T wave abnormality noted in the anterior leads V2, V3 and V4. There is artifact which computer is reading his lateral ischemia.) Discharge Plan Triage Chief Complaint: Shortness of Breath ED Provider: Ramsey Lopez Dx/Rx/DC Orders Clinical Impression: Left-sided chest pain, Hyperlipidemia, Essential hypertension, Anemia, Pleuritic chest pain, Squamous cell carcinoma of lung, stage III Instructions: ED Chest Pain, Uncertain Cause Prescriptions: New hydrocodone-acetaminophen [hydrocodone-acetaminophen] 5-325 mg tablet 1 tab PO Q6H PRN PRN (Reason: Pain) 3 Days Qty: 10 0RF No Action MAGIC MOUTH WASH (BMX) 180 mL suspension 15 ml PO .qid PRN (Reason: pain) Qty: 180 5RF Rx Instructions: diphenhydramine 12.5 mg/5 mL oral liquid 60 mL; aluminum-mag hydroxide-simethicone 400 mg-400 mg-40 mg/5 mL oral susp 60 mL; Lidocaine Viscous 2 % mucosal solution 60 mL; Per 180 mL omeprazole 20 mg capsule,delayed release(DR/EC) 20 mg PO DAILY Qty: 30 2RF furosemide [Lasix] 20 mg tablet 20 mg PO DAILY famotidine 20 mg tablet 20 mg PO DAILY gabapentin 300 mg capsule 300 mg PO QHS hydroxyzine HCl 25 mg tablet 25 mg PO QHS budesonide-formoterol [Symbicort] 160-4.5 mcg/actuation HFA aerosol inhaler 2 puff inhalation BID albuterol sulfate 1 PUFF inhaler 1 puff IH PRN PRN (Reason: Sob &/Or Wheezing) montelukast 10 mg tablet 10 mg PO DAILY lisinopril 20 mg tablet 20 mg PO DAILY atorvastatin 10 mg tablet 10 mg PO QHS Qty: 90 3RF ondansetron 8 mg tablet,disintegrating 8 mg PO Q8H PRN (Reason: nausea and vomiting) Qty: 30 1RF (DME) Hair prostethesis See Rx Instructions .Route .MEDSUPPLY Qty: 1 0RF Rx Instructions: As directed colestipol 1 gram tablet 1 g PO BID Qty: 60 1RF Primary Care Provider: Hernandez Mcqueen Referrals: Hernandez Mcqueen MD [Primary Care Provider] - 5-7 Days
--- NOTE | 2023-06-03 12:30 | RAD_ITS ---
STUDY: X-RAY CHEST REASON FOR EXAM: Female, 73 years old. Right CP, shortness of breath history cancer TECHNIQUE: PA and lateral views of the chest. COMPARISON: Comparison is made with prior study dated October 11, 2022. FINDINGS: EKG electrodes are seen. There is a 3 cm x 3.1 cm nodular mass in the medial aspect of the right upper lobe. This has progressed as compared to prior study. Hyperinflation. Stable mild increased markings at the lung bases just some mild scarring more prominent at the left lung base. Normal size heart. Normal mediastinum and rosamaria. Normal visualized pulmonary arteries. There is atherosclerotic calcification of the aortic arch with tortuosity. There are diffuse degenerative changes of the visualized thoracic spine. Mild levoscoliosis. Normal visualized ribs, clavicles, and shoulders. There is no demonstrated abnormality of the visualized soft tissue structures of the upper abdomen. RAD/Chest PA and Lateral IMPRESSION: 3 cm x 3.1 cm nodule in the medial aspect of the right upper lobe. Hyperinflation and mild scarring at the lung bases likely more prominent at the left lung base. Electronically Signed: Juan Carlos Laguna MD at 12:46 EDT ,
[2023-06-03 12:34] LABS: Absolute Lymphocyte Count 0.85 X10^3/uL (0.83-4.51); Absolute Neutrophil Count 4.6 X10^3/uL (2.0-7.7); Basophil# 0.04 X10^3/uL; Basophil% 0.6 % (0-1); Eosinophil# 0.26 X10^3/uL; Eosinophils% 4.2 % (0-5); Hematocrit 32.7 % (37-47); Hemoglobin 9.9 g/dL (12.0-15.0); Lymphocyte # 0.85 X10^3/ul (0.83-4.51); Lymphocyte % 13.7 % (19-41); Mean Corp Hgb Conc 30.3 g/dL (32-36); Mean Corpuscular Hgb 31.2 pg (27.0-32.0); Mean Corpuscular Volume 103.2 fL (81-99); Mean Platelet Vol. 10.7 fl (6.2-12.0); Monocyte% 6.5 % (0-10); NRBC Flagged by Analyzer 0 % (0-5); Neutrophil # 4.61 X10^3/uL (2.7-7.7); Neutrophil % 74.4 % (47-70); Platelet Count 192 K/mm3 (150-450); RBC Distribution Width CV 14.2 % (11.6-14.6); RBC Distribution Width SD 53.5 fl (35.1-43.9); Red Blood Count 3.17 M/mm3 (4.2-5.4); White Blood Count 6.2 K/mm3 (4.4-11.0)
--- NOTE | 2023-06-03 12:42 | CT_ITS ---
STUDY: CTA CHEST REASON FOR EXAM: Female, 73 years old. High pretest probability PE. History of non-small cell lung carcinoma with chemotherapy and radiation. COPD. RADIATION DOSAGE (If Supplied By Facility): CTDIvol = ( 5.79 ) mGy, DLP = ( 183.92 ) mGycm TECHNIQUE: The examination was performed with the intravenous administration of IV 100mL Isovue-370. Post-processing of the angiographic images was performed, with multiplanar reformation and 3D reconstruction. Individualized dose optimization techniques were used for this CT. COMPARISON: Comparison is made with prior study dated March 11, 2023. FINDINGS: Normal enhancement of the main pulmonary artery and right and left pulmonary arteries. Normal enhancement of the bilateral peripheral pulmonary arteries. There is no demonstrated pulmonary embolism. There is atherosclerotic calcification of the aortic arch with tortuosity. There is no demonstrated aortic dissection. There are calcifications of the coronary arteries. Normal mediastinum. Normal hilar regions. Normal visualized trachea and bronchi. Hyperinflation. Diffuse emphysematous changes with bullous formation worse in the upper lobes. Stable 2.3 x 1.7 cm heterogeneous nodule in the posterior aspect of the right upper lobe. Normal pulmonary parenchyma. Normal pleura. Normal chest wall structures. Osteopenia of the thoracic spine. Stable compression of the T10-11 and T8 vertebra. Normal visualized upper abdomen. CT/CTA Chest W/WO Contrast IMPRESSION: No evidence of pulmonary embolism. Stable 2.3 cm x 1.7 cm mass in the posterior aspect of the right upper lobe. Electronically Signed: Juan Carlos Laguna MD at 13:48 EDT ,
[2023-06-03 13:00] LABS: Anion Gap 6 (5-15); BUN 24 mg/dL (7-18); Calcium,Total 8.8 mg/dL (8.5-10.1); Chloride 108 mmol/L (98-107); EST Glomerular Filtration Rate 74 mL/min (>60); Est Glom Filt Rate - Afr Amer 90 mL/min (>60); Glucose 136 mg/dL (74-106); Potassium 3.8 mmol/L (3.5-5.1); Sodium Level 139 mmol/L (136-145); Troponin-I HS 14 pg/mL (3.0-54.0)
[2023-06-03 15:15] VITALS: BP 120/62; PULSE 68; RESP 16; TEMP 36.6; O2SAT 100
[2023-06-03 16:07] VITALS: BP 127/69; PULSE 68; RESP 16; TEMP 36.6; O2SAT 99
== END 2023-06-03 16:18 | disposition home or self-care (01) ==
LOC: ED 12:53
PROVIDERS: Emergency Provider Emergency Medicine; PCP Family Medicine; Visit Provider Emergency Medicine
DX: R07.89 Other chest pain (principal); C34.90 Malignant neoplasm of unspecified part of unspecified bronchus or lung; J44.9 Chronic obstructive pulmonary disease, unspecified; D64.9 Anemia, unspecified; I10 Essential (primary) hypertension; E78.5 Hyperlipidemia, unspecified; Z79.899 Other long term (current) drug therapy; Z87.891 Personal history of nicotine dependence
CPT/HCPCS: 71046; 71275; 80048; 84484; 85025; 93005; 99284; Q9967; A4216

== ENCOUNTER → 2023-06-06 | Outpatient (CLI) | payer MEDICARE, MEDICAID, SELFPAY ==
[2023-06-06 17:54] LABS: Absolute Lymphocyte Count 0.87 X10^3/uL (0.83-4.51); Absolute Neutrophil Count 5.5 X10^3/uL (2.0-7.7); Basophil# 0.04 X10^3/uL; Basophil% 0.6 % (0-1); Eosinophil# 0.34 X10^3/uL; Eosinophils% 4.7 % (0-5); Hematocrit 29.9 % (37-47); Lymphocyte # 0.87 X10^3/ul (0.83-4.51); Mean Corp Hgb Conc 30.1 g/dL (32-36); Mean Corpuscular Hgb 31.3 pg (27.0-32.0); Mean Corpuscular Volume 103.8 fL (81-99); Mean Platelet Vol. 10.8 fl (6.2-12.0); Monocyte# 0.49 X10^3/uL; Monocyte% 6.7 % (0-10); NRBC Flagged by Analyzer 0 % (0-5); Neutrophil # 5.51 X10^3/uL (2.7-7.7); Neutrophil % 75.7 % (47-70); Platelet Count 204 K/mm3 (150-450); RBC Distribution Width CV 14.2 % (11.6-14.6); RBC Distribution Width SD 53.9 fl (35.1-43.9); Red Blood Count 2.88 M/mm3 (4.2-5.4); White Blood Count 7.3 K/mm3 (4.4-11.0)
[2023-06-06 18:09] LABS: Anion Gap 7 (5-15); BUN 27 mg/dL (7-18); BUN/Creat Ratio 33.1 RATIO (10-20); Calcium,Total 8.7 mg/dL (8.5-10.1); Chloride 109 mmol/L (98-107); Creatinine, Serum 0.82 mg/dL (0.55-1.02); EST Glomerular Filtration Rate 73 mL/min (>60); Est Glom Filt Rate - Afr Amer 88 mL/min (>60); Glucose 101 mg/dL (74-106); Potassium 4.3 mmol/L (3.5-5.1); Sodium Level 140 mmol/L (136-145); Thyroid Stim Hormone (TSH) 1.73 uIU/mL (0.358-3.74)
== END | disposition home or self-care (01) ==
LOC: MFPLAB 15:29
PROVIDERS: PCP Family Medicine; Visit Provider Family Medicine
DX: D64.9 Anemia, unspecified (principal); R53.83 Other fatigue
CPT/HCPCS: 36415; 80048; 84443; 85025

== ENCOUNTER 2023-06-11 17:17 | Emergency (ER) | payer MEDICARE, MEDICAID, SELFPAY ==
[2023-06-11 17:18] VITALS: BP 123/68; PULSE 99; RESP 14; TEMP 36.6; O2SAT 100; BMI 24.8
[2023-06-11 17:35] VITALS: O2SAT 95
--- NOTE | 2023-06-11 18:03 | CT_ITS ---
STUDY: CTA CHEST REASON FOR EXAM: Female, 73 years old. chest pain, high risk PE RADIATION DOSAGE (If Supplied By Facility): CTDIvol = ( 7.34 ) mGy, DLP = ( 365.51 ) mGycm TECHNIQUE: The examination was performed with the intravenous administration of IV 100mL Isovue-370. Post-processing of the angiographic images was performed, with multiplanar reformation and 3D reconstruction. Individualized dose optimization techniques were used for this CT. COMPARISON: June 03, 2023 FINDINGS: Normal enhancement of the main pulmonary artery and right and left pulmonary arteries. Normal enhancement of the bilateral peripheral pulmonary arteries. There is no demonstrated pulmonary embolism. Atherosclerotic changes of the aorta without evidence for aneurysm There is no demonstrated aortic dissection. Heart size is normal. There is multivessel coronary artery calcification Normal mediastinum. Normal hilar regions. Normal visualized trachea and bronchi. The lungs are well expanded. Chronic interstitial and emphysematous changes most severe in the upper lobes.. There is an irregular mass in the right upper lobe measuring 2.9 x 2.4 cm extending to the pleural surface in association with pleural thickening No pleural effusion or pneumothorax. Normal chest wall structures. Dorsal spine demonstrates degenerative change and multilevel chronic compression fracture Normal visualized upper abdomen. CT/CTA Chest W/WO Contrast IMPRESSION: Chronic interstitial and emphysematous changes with coexisting ASHD.. Mass in the right upper lobe suspicious for neoplasm. No evidence for pulmonary embolus Electronically Signed: Vance Mcconnell MD at 20:00 EDT ,
--- NOTE | 2023-06-11 18:03 | EKG12_ITS ---
Test Reason : SOB Blood Pressure : / mmHG Vent. Rate : 096 BPM Atrial Rate : 096 BPM P-R Int : 166 ms QRS Dur : 082 ms QT Int : 372 ms P-R-T Axes : 056 028 108 degrees QTc Int : 469 ms Normal sinus rhythm Cannot rule out Inferior infarct , age undetermined ST & T wave abnormality, consider lateral ischemia Abnormal ECG Confirmed by STEPHANY LEBRON ([id number]), web content editor FRANCESCA WINTERS ([id number]) on 06/13/2023 11:22:12 AM Referred By: Confirmed By:STEPHANY LEBRON
--- NOTE | 2023-06-11 18:04 | EDS_ITS ---
HPI History of Present Illness Chief Complaint: Shortness of Breath Informant: patient Narrative Narrative: Patient is a 73-year-old female with history of lung cancer status post radiation and chemo with recurrence and waiting to restart chemotherapy (follows with Dr. Bryant), presenting with worsening right-sided lung pain. States it feels like is the middle of her right lung. She has had pain over the past 3 to 4 days that is worse with breathing or movement. She denies any injury. She also notes that she has felt hot but denies any chills. She has a chronic cough that sometimes Rectiv of clear and green sputum but no change in this. She does have some mild nausea. She denies any swelling of her legs. Denies any history of DVT or PE. No other complaints at this time. Not take anything for the pain. No she does have some mild nausea. States that she was very short of breath when she was walking into the ER and does have some mild shortness of breath walking around her apartment [facility] Medical History Alopecia Anemia Asthma Benign neoplasm of colon Chronic constipation Contact with and (suspected) exposure to other viral communicable diseases COPD (chronic obstructive pulmonary disease) COVID-19 Essential hypertension Fatigue Generalized weakness Hyperlipidemia Hypokalemia Mild aortic stenosis Nicotine dependence Pneumonia Home Medications albuterol sulfate 90 mcg/actuation aerosol inhaler 1 puff IH PRN PRN Sob &/Or Wheezing 04/17/19 [History Last Taken Unknown] atorvastatin 10 mg tablet 10 mg PO QHS #90 tabs 04/17/21 [Rx Last Taken Unknown] montelukast 10 mg tablet 10 mg PO DAILY 08/21/22 [History Last Taken Unknown] lisinopril 20 mg tablet 20 mg PO DAILY 12/06/22 [History Last Taken Unknown] ondansetron 8 mg disintegrating tablet 8 mg PO Q8H PRN nausea and vomiting #30 tabs 01/07/23 [Rx Last Taken Unknown] Hair prostethesis #1 ea 01/17/23 [Rx Last Taken Unknown] MAGIC MOUTH WASH (BMX) 180 mL suspension 15 ml PO .qid PRN pain #180 mL 01/23/23 [Rx Last Taken Unknown] omeprazole 20 mg capsule,delayed release 20 mg PO DAILY #30 caps 02/25/23 [Rx Last Taken Unknown] budesonide-formoterol HFA 160 mcg-4.5 mcg/actuation aerosol inhaler (Symbicort) 2 puff inhalation BID 03/18/23 [History Last Taken Unknown] famotidine 20 mg tablet 20 mg PO DAILY 03/18/23 [History Last Taken Unknown] gabapentin 300 mg capsule 300 mg PO QHS 03/18/23 [History Last Taken Unknown] hydroxyzine HCl 25 mg tablet 25 mg PO QHS 03/18/23 [History Last Taken Unknown] furosemide 20 mg tablet (Lasix) 20 mg PO DAILY 04/10/23 [History Last Taken Unknown] colestipol 1 gram tablet 1 g PO BID #60 tabs 04/16/23 [Rx Last Taken Unknown] hydrocodone-acetaminophen 5-325mg 5mg-325mg 1 tab PO Q6H PRN PRN Pain 3 days #10 TABLETS 06/03/23 [Rx Last Taken Unknown] oxycodone 5 mg tablet 5 mg PO Q6H PRN pain 3 days #12 tabs 06/11/23 [Rx Last Taken Unknown] Allergy/AdvReac Type Severity Reaction Status Date / Time watermelon Allergy Intermediate Hives Verified 06/11/23 17:18 Family History Father Cancer spinal Mother Alzheimer's disease Brother Pacemaker Surgical History History of amputation of finger of right hand History of appendectomy History of breast surgery History of cataract extraction History of D&C History of hysterectomy History of toe surgery History of tonsillectomy Social History household members: spouse pets and animals: Yes (dogs) Smoking Status: Former smoker how long ago did patient quit smokin alcohol intake: former substance use type: does not use ROS ROS ED Constitutional Constitutional ED: Reports other Details: hot feeling ; Denies chills or fever(s) ENT ENT ED: Denies sore throat Cardiovascular Cardiovascular: Reports chest pain; Denies palpitations Respiratory/Chest Respiratory/Chest: Reports cough and dyspnea on exertion; Denies dyspnea Gastrointestinal Gastrointestinal: Reports nausea; Denies abdominal pain or vomiting Musculoskeletal Musculoskeletal: Denies arthralgias or myalgias Integumentary Denies rash Neurologic Neurologic: Denies headache(s) or weakness Psychiatric Psychiatric: Denies anxiety Hematologic/Lymphatic Hematologic/Lymphatic: Denies easy bleeding or easy bruising EXAM Physical Exam Const Vital Signs: 06/11/23 17:18 06/11/23 17:35 06/11/23 18:11 Temperature 98 F Temperature Source Temporal Pulse Rate 99 Respiratory Rate 14 Respiratory Effort Short of Breath Respiratory Depth Deep Respiratory Pattern Tachypnea Blood Pressure 123/68 H Blood Pressure Mean 86 Pulse Ox 100 93 Oxygen Delivery Method Room Air Room Air 06/11/23 21:17 Temperature Temperature Source Pulse Rate 77 Respiratory Rate 18 Respiratory Effort Respiratory Depth Respiratory Pattern Blood Pressure 117/58 L Blood Pressure Mean 77 Pulse Ox 92 Oxygen Delivery Method Room Air Positive well nourished and well developed General Appearance ED: well developed and NAD HEENT Reports moist mucous membranes Eyes PERRL and EOMs intact bilaterally Neck supple and no JVD Chest Wall inspection of chest normal and palpation of chest normal Chest Narrative: No reproducible tenderness with palpation Resp normal respiratory effort and clear to auscultation bilaterally Auscultation: Negative for rhonchi or wheezes Cardio regular rate, regular rhythm and no murmurs GI non-tender and non-distended Neuro oriented x3 Sensorium / Orientation: alert Motor Exam: Negative for general weakness Psych mental status grossly normal Skin no rashes or lesions noted MDM MDM MDM Narrative Medical decision making narrative: Griselda is evaluated for right-sided chest pain. She has known lung mass/cancer and is due to restart chemotherapy soon. She follows Dr. Falk has a ppointment to see him tomorrow morning. Patient is given morphine for pain control in the ER. She is high risk for pulmonary emboli given her active cancer as well as a pleuritic chest pain. Differential also includes pleurisy, pneumothorax and pneumonia. Low suspicion for ACS as a cause of the pain. Patient's EKG does show anterior lateral ischemic changes however these are chronic and unchanged from prior EKG. Her high since he troponin is 12. I do not think this is a primary cardiac issue. Her CBC and BMP otherwise are normal. CTA of the chest shows a mass in the right upper lobe suspicious for neoplasm extending into the pleural surface and associated pleural thickening. I suspect it is extension into the pleura and the thickening is x-ray was causing her pain. Patient is given a dose of oxycodone and Toradol. Has outpatient appointment to see her oncologist tomorrow. She is not hypoxic so I do not think she requires admission to the hospital. I will page her oncologist to make sure they are aware of what happened in the ER today. Patient is mildly anemic however it is stable. I spoke with on-call physician, Dr. Gallardo, who will communicate with her oncologist. They will continue to monitor and treat her pain. Patient discharged home in stable and improved condition. I did discuss the risk and benefits of opioid pain medication including but not limited to constipation, confusion and increased risk of fall. Lab Data Labs: Laboratory Results - last 24 hr 06/11/23 17:25 WBC 5.5 RBC 2.70 L Hgb 8.5 L Hct 28.1 L MCV 104.1 H MCH 31.5 MCHC 30.2 L RDW Std Deviation 55.2 H RDW Coeff of Eloisa 14.6 Plt Count 251 MPV 10.5 Immature Gran % (Auto) 0.400 Neut % (Auto) 68.1 Lymph % (Auto) 17.6 L [place] % (Auto) 8.8 Eos % (Auto) 4.6 Baso % (Auto) 0.5 Absolute Neuts (auto) 3.7 Absolute Lymphs (auto) 0.96 Nucleated RBC % 0 Sodium 140 Potassium 3.9 Chloride 108 H Carbon Dioxide 26.0 Anion Gap 6 BUN 17 Creatinine 0.75 Estim Creat Clear Calc 40.83 Est GFR (MDRD) Af Amer 98 Est GFR (MDRD) Non-Af 81 BUN/Creatinine Ratio 22.8 H Glucose 101 Calcium 9.4 Troponin I High Sens 12 Radiography Diagnostic Testing: Clinical Impression(s) from Imaging Studies Chest CTA 06/11/23 18:03 IMPRESSION: Chronic interstitial and emphysematous changes with coexisting ASHD.. Mass in the right upper lobe suspicious for neoplasm. 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 Discharge Plan Triage Chief Complaint: Shortness of Breath ED Provider: Christine Mancini Dx/Rx/DC Orders Clinical Impression: Pleuritic chest pain, Anemia, Mass of right lung Instructions: ED Anemia, Type Not Specified (Adult), ED Chest Pain, Noncardiac, ED Pleurisy Prescriptions: New oxycodone 5 mg tablet 5 mg PO Q6H PRN (Reason: pain) 3 Days Qty: 12 0RF No Action MAGIC MOUTH WASH (BMX) 180 mL suspension 15 ml PO .qid PRN (Reason: pain) Qty: 180 5RF Rx Instructions: diphenhydramine 12.5 mg/5 mL oral liquid 60 mL; aluminum-mag hydroxide- simethicone 400 mg-400 mg-40 mg/5 mL oral susp 60 mL; Lidocaine Viscous 2 % mucosal solution 60 mL; Per 180 mL omeprazole 20 mg capsule,delayed release(DR/EC) 20 mg PO DAILY Qty: 30 2RF furosemide [Lasix] 20 mg tablet 20 mg PO DAILY famotidine 20 mg tablet 20 mg PO DAILY gabapentin 300 mg capsule 300 mg PO QHS hydroxyzine HCl 25 mg tablet 25 mg PO QHS budesonide-formoterol [Symbicort] 160-4.5 mcg/actuation HFA aerosol inhaler 2 puff inhalation BID albuterol sulfate 1 PUFF inhaler 1 puff IH PRN PRN (Reason: Sob &/Or Wheezing) montelukast 10 mg tablet 10 mg PO DAILY lisinopril 20 mg tablet 20 mg PO DAILY hydrocodone-acetaminophen [hydrocodone-acetaminophen] 5-325 mg tablet 1 tab PO Q6H PRN PRN (Reason: Pain) 3 Days Qty: 10 0RF atorvastatin 10 mg tablet 10 mg PO QHS Qty: 90 3RF ondansetron 8 mg tablet,disintegrating 8 mg PO Q8H PRN (Reason: nausea and vomiting) Qty: 30 1RF (DME) Hair prostethesis See Rx Instructions .Route .MEDSUPPLY Qty: 1 0RF Rx Instructions: As directed colestipol 1 gram tablet 1 g PO BID Qty: 60 1RF Primary Care Provider: Hernandez Mcqueen Referrals: Hernandez Mcqueen MD [Primary Care Provider] - Activity Restrictions/Additional Instructions: Follow-up with your oncologist tomorrow as scheduled. I suspect the pain is due to the mass in your lung that is starting to irritate the lining of your lung. We call this pleurisy. Anti-inflammatories can be helpful for this. He was been prescribed stronger pain medicine. As we discussed please take either MiraLAX or a stool softener while taking that pain medicines you do not get 1 more severe opioid-induced constipation. If you develop difficulty breathing or sudden change/worsening your symptoms or further concerns please return to the emergency room.
[2023-06-11 18:11] VITALS: O2SAT 93
[2023-06-11] MEDS: Ondansetron 4 MG/2 ML Vial IV (18:16)
[2023-06-11] MEDS: Morphine 4 MG/ML Syringe IV (18:16)
[2023-06-11 18:28] LABS: Absolute Lymphocyte Count 0.96 X10^3/uL (0.83-4.51); Absolute Neutrophil Count 3.7 X10^3/uL (2.0-7.7); Basophil# 0.03 X10^3/uL; Basophil% 0.5 % (0-1); Eosinophil# 0.25 X10^3/uL; Eosinophils% 4.6 % (0-5); Hematocrit 28.1 % (37-47); Hemoglobin 8.5 g/dL (12.0-15.0); Lymphocyte # 0.96 X10^3/ul (0.83-4.51); Lymphocyte % 17.6 % (19-41); Mean Corp Hgb Conc 30.2 g/dL (32-36); Mean Corpuscular Hgb 31.5 pg (27.0-32.0); Mean Corpuscular Volume 104.1 fL (81-99); Mean Platelet Vol. 10.5 fl (6.2-12.0); Monocyte# 0.48 X10^3/uL; Monocyte% 8.8 % (0-10); NRBC Flagged by Analyzer 0 % (0-5); Neutrophil # 3.72 X10^3/uL (2.7-7.7); Neutrophil % 68.1 % (47-70); Platelet Count 251 K/mm3 (150-450); RBC Distribution Width CV 14.6 % (11.6-14.6); RBC Distribution Width SD 55.2 fl (35.1-43.9); White Blood Count 5.5 K/mm3 (4.4-11.0)
[2023-06-11 19:10] LABS: Anion Gap 6 (5-15); BUN 17 mg/dL (7-18); BUN/Creat Ratio 22.8 RATIO (10-20); Calcium,Total 9.4 mg/dL (8.5-10.1); Chloride 108 mmol/L (98-107); Creatinine, Serum 0.75 mg/dL (0.55-1.02); EST Glomerular Filtration Rate 81 mL/min (>60); Est Glom Filt Rate - Afr Amer 98 mL/min (>60); Estimated Creatinine Clearance 40.83 ml/min; Glucose 101 mg/dL (74-106); Potassium 3.9 mmol/L (3.5-5.1); Sodium Level 140 mmol/L (136-145); Troponin-I HS 12 pg/mL (3.0-54.0)
[2023-06-11 21:17] VITALS: BP 117/58; PULSE 77; RESP 18; O2SAT 92
[2023-06-11] MEDS: Ketorolac 15 MG/ML Vial IV (21:25)
[2023-06-11] MEDS: oxyCODONE 5 MG Tablet PO (21:25)
[2023-06-11 22:10] VITALS: BP 134/65; PULSE 72; RESP 15; O2SAT 93
== END 2023-06-11 22:18 | disposition home or self-care (01) ==
PROVIDERS: Emergency Provider Emergency Medicine; PCP Family Medicine; Visit Provider Emergency Medicine
DX: R07.81 Pleurodynia (principal); D64.9 Anemia, unspecified; R91.8 Other nonspecific abnormal finding of lung field; Z86.16 Personal history of COVID-19; Z87.891 Personal history of nicotine dependence
CPT/HCPCS: 71275; 80048; 84484; 85025; 93005; 96374; 96375; 99285; Q9967; A4216; J2405

== ENCOUNTER 2023-06-20 05:45 | Day surgery (SDC) | payer MEDICARE, MEDICAID, SELFPAY ==
[2023-06-20] VITALS (9 sets, daily range): BP systolic 113–140; BP diastolic 61–78; PULSE 81–91; RESP 16–24; TEMP 36.1–36.7; O2SAT 92–100; BMI 24.5
[2023-06-20] MEDS: Lactated Ringers 1,000 ML 15 ML IV (06:41)
--- NOTE | 2023-06-20 07:15 | PCM.HP.BLA ---
History and Physical Date of Admission: 06/20/23 Date of Service: 06/17/23 MR#: [id number] Acct: [id number] Name: JUAN HAWKINS Rep #: [id number] : 1950 Provider: Dr. 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 Is patient in pain?: No Allergies watermelon Allergy (Intermediate, Verified 06/17/23 13:26) Hives Medications albuterol sulfate 90 mcg/actuation aerosol inhaler 1 puff IH PRN PRN Sob &/Or Wheezing 04/17/19 [History Confirmed 06/17/23] atorvastatin 10 mg tablet 10 mg PO QHS #90 tabs 04/17/21 [Rx Confirmed 06/17/23] montelukast 10 mg tablet 10 mg PO DAILY 08/21/22 [History Confirmed 06/17/23] lisinopril 20 mg tablet 20 mg PO DAILY 12/06/22 [History Confirmed 06/17/23] ondansetron 8 mg disintegrating tablet 8 mg PO Q8H PRN nausea and vomiting #30 tabs 01/07/23 [Rx Confirmed 06/17/23] Hair prostethesis #1 ea 01/17/23 [Rx Confirmed 06/17/23] MAGIC MOUTH WASH (BMX) 180 mL suspension 15 ml PO .qid PRN pain #180 mL 01/23/23 [Rx Confirmed 06/17/23] omeprazole 20 mg capsule,delayed release 20 mg PO DAILY #30 caps 02/25/23 [Rx Confirmed 06/17/23] budesonide-formoterol HFA 160 mcg-4.5 mcg/actuation aerosol inhaler (Symbicort) 2 puff inhalation BID 03/18/23 [History Confirmed 06/17/23] famotidine 20 mg tablet 20 mg PO DAILY 03/18/23 [History Confirmed 06/17/23] gabapentin 300 mg capsule 300 mg PO QHS 03/18/23 [History Confirmed 06/17/23] hydroxyzine HCl 25 mg tablet 25 mg PO QHS 03/18/23 [History Confirmed 06/17/23] furosemide 20 mg tablet (Lasix) 20 mg PO DAILY 04/10/23 [History Confirmed 06/17/23] colestipol 1 gram tablet 1 g PO BID #60 tabs 04/16/23 [Rx Confirmed 06/17/23] hydrocodone-acetaminophen 5-325mg 5mg-325mg 1 tab PO Q6H PRN PRN Pain 3 days #10 TABLETS 06/03/23 [Rx Confirmed 06/17/23] oxycodone 5 mg tablet 5 mg PO Q6H PRN pain 3 days #12 tabs 06/11/23 [Rx Confirmed 06/17/23] PFSH Medical History Alopecia Anemia Asthma Benign neoplasm of colon Cancer related pain Chronic constipation Contact with and (suspected) exposure to other viral communicable diseases COPD (chronic obstructive pulmonary disease) COVID-19 Essential hypertension Fatigue Generalized weakness Hyperlipidemia Hypokalemia Mild aortic stenosis Nicotine dependence Pneumonia Surgical History History of amputation of finger of right hand History of appendectomy History of breast surgery History of cataract extraction History of D&C History of hysterectomy History of toe surgery History of tonsillectomy Family History Father Cancer spinalMother Alzheimer's diseaseBrother Pacemaker Social History household members: spouse pets and animals: Yes (dogs) Smoking Status: Former smoker how long ago did patient quit smokin alcohol intake: former substance use type: does not use HPI HPI HPI: 73-year-old female with right lung cancer presents for port placement. 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 Patient's PET scan late April showed progression of the right lung mass. Patient was previously on chemotherapy prior peripherally. Patient plans to start again next week for chemotherapy with Dr. Bryant. ROS General General: Yes fatigue; No weight change, appetite, colon cancer or breast cancer HEENT HEENT: Yes eye injury and eye surgery; No difficulty swallowing, swollen glands or hoarseness Endo Endocrine: No thyroid disease, diabetes mellitus, thyroid cancer, Hair loss, heat intolerance or cold intolerance Skin Skin: No rash or changing moles Musc Musculoskeletal: Yes back problems and arthritis; No rheumatoid arthritis, gout or joint pain Cardio Cardiovascular: Yes high blood pressure; No murmur, pacemaker, heart disease, atrial fibrillation, heart attack, heart stent, palpitations, shortness of breat with exertion or chest pain Psych Psychiatric: Yes anxiety; No depression or hearing voices Resp Respiratory: Yes shortness of breath, No sleep apnea, Yes cough, No COPD, Yes asthma, No emphysema and No wheezing Gastro Gastrointestinal: No abdominal pain, No nausea or vomiting, No diarrhea, Yes constipation, No blood in stool, No acid reflux, No hemorrhoids, No ulcers, No gallbladder problem and Yes black,tarry stools Saw Hematologic: No blood thinners, No blood disorders, No bleeding, No anemia and No blood clots Neuro Neurologic: No numbness and No tingling Exam Const General: cooperative, comfortable and no acute distress HENMT Head: normal to inspection Neck Neck: supple Other: Well-healed right upper neck incision Chest Other: Normal palpation bilateral upper chest Resp Effort & Inspection: normal respiratory effort Cardio Rate: regular rate GI Inspection: normal to inspection Palpation: soft Extrem General: no edema Psych Affect: normal affect Assessment and Plan Assessment and Plan (1) Encounter for insertion of venous access port: Status: Acute (2) Mass of right lung: Status: Acute Plan I have discussed above with the patient- Port-a-Cath placement. Left possible right IJ Patient has been counseled as to the risks/benefits of the procedure. I have explained the risks of the surgery, including but not limited to: infection, bleeding, injury to any blood vessels/nerves, injury to lungs (such as pneumothorax or hemothorax and need for chest tube), not having any access, nonfunctioning of port due to thrombosis, infection of port, etc. the patient understands and agrees to proceed. I have answered all the patient's questions to the patient?s satisfaction and the patient has no further questions. Margarita Dale M.D. Pager: [phone] [facility] [address] [place] [address], [facility] [address], [address] [place] [address] Office: [phone] Coding Level of Care Code Off vis,new,level 3 Diagnoses Encounter for insertion of venous access port Z45.2 Mass of right lung R91.8 06/17/23 1345 <Electronically signed by Margarita Dale MD> Date Margarita Dale MD
[2023-06-20] MEDS: Cefazolin 2 GM in 0.9% Normal Saline 100 ML IV (07:30)
[2023-06-20] MEDS: Bupivacaine Mpf 0.5% 30 ML VIAL (08:25)
[2023-06-20] MEDS: Lidocaine 1% /Epi 1:100 (20ml) 20 ML Vial (08:25)
--- NOTE | 2023-06-20 08:38 | RAD_ITS ---
INDICATION: port -- pacu -- POST PORT PLACEMENT EXAMINATION/TECHNIQUE: X-RAY - XR Chest 1 View COMPARISON: Prior studies dated: June 03, 2023 and CTA dated June 11, 2023 FINDINGS: LINES/DEVICES: There is a right-sided central venous catheter in place terminating within the expected region of the superior vena cava. LUNGS: There is a partially obscured ill-defined opacity within the right upper lung. No pneumothorax. MEDIASTINUM AND CARDIOVASCULAR STRUCTURES: Cardiac silhouette not enlarged. Central airways and mediastinal contour are unremarkable. BONES AND SOFT TISSUES: There are stable compression deformities within the mid and lower thoracic spine. RAD/Chest 1 View (Portable) IMPRESSION: Ill-defined opacity within the right upper lung concerning for neoplastic process. Central venous catheter terminating within the expected region of the superior vena cava. Electronically Signed: Rosalind Kinney MD at 9:53 EDT ,
--- NOTE | 2023-06-20 08:38 | PCM.OPRPT ---
Report of Operation Pre-Operative Diagnosis: z45.2, lung cancer Post-Operative Diagnosis: Same Surgery/Procedure Performed:: 1. Left IJ converted to right IJ Port-A-Cath 2. Use of fluoroscopy 3. Use of ultrasound Description of Surgical Findings:: Left IJ goes directly to the left atrium does not join the right IJ to form the superior vena cava?thus changed to right IJ, did review with radiology and look at previous chest CAT scans to confirm this as well. Surgeon: Margarita Dale Type of Anesthesia: Local MAC Anesthesiologist: Jeff Oseguera Special Medications: Ancef 2 g IV x1 Specimen's removed: None Estimated Blood Loss (mL): < 10 cc Description of Procedure: After informed consent was given, the patient was brought to the operating room and placed in the supine position. Appropriate time out protocol was followed. Patient was then given IV conscious sedation for anesthesia. The patient's left upper chest and neck were then prepped with a surgical skin preparation and sterile surgical drapes were placed. After proper landmarks were ascertained, the skin at the upper left chest area was then infiltrated with 1:1 mixture of 1% lidocaine with epinephrine and 0.5% marcaine. A needle trocar was then inserted into the left internal jugular vein with ultrasound guidance-multiple vessels were viewed with u/s and the left IJ was chosen-- and there was good aspiration of venous blood. A wire was then threaded into the needle trocar and this was visualized under fluoroscopy to ensure that the wire was in the superior vena cava; however, this was going directly down to the left atrium and not curving over towards the right. Reviewing previous chest CTs showed that the left IJ does not join the right IJ and forming the superior vena cava thus it was converted to a right IJ port placement. The patient's right upper chest and neck were then prepped with a surgical skin preparation and sterile surgical drapes were placed. After proper landmarks were ascertained, the skin at the upper right chest area was then infiltrated with 1:1 mixture of 1% lidocaine with epinephrine and 0.5% marcaine. A needle trocar was then inserted into the right internal jugular vein with ultrasound guidance and there was good aspiration of venous blood. A wire was then threaded into the needle trocar and this was visualized under fluoroscopy to ensure that the wire was in the superior vena cava. Once this was done, then the needle trocar was removed. A small skin suleiman was made with an 11 blade knife at the wire entrance site. The dilator with the introducer sheath attached was then placed over the wire into the right internal jugular vein via the Seldinger technique and this was visualized under fluoroscopy. The dilator and sheath were in proper position as visualized by fluoroscopy. A subcutaneous pocket was then created caudad to the catheter insertion site. A transverse skin incision was made after the skin and subcutaneous tissues were infiltrated with local anesthetic. Blunt dissection was then used to create a space large enough for placement of the subcutaneous port. The catheter was then tunneled into the subcutaneous pocket. The wire and dilator were then removed. The catheter was then threaded into the introducer sheath and was positioned with its tip at the junction of the superior vena cava and the right atrium as visualized under fluoroscopy. The excess catheter was transected. The catheter was then attached to the subcutaneous port using manufacturers guidelines. The catheter was flushed with a heparin saline mixture prior to placement. Hemostasis was carefully controlled with electrocautery. The port was sutured to the subcutaneous fascia using 2-0 Vicryl suture at two sites. The port was then placed in the subcutaneous pocket. The incision were reapproximated with interrupted subdermal 3-0 vicryl sutures. The skin was reapproximated with 3-0 nylon suture in a interrupted fashion. Steristrips were used for reinforcement of the skin closure at IJ insertion site and a sterile opsite dressings were applied. The patient tolerated the procedure well. Grafts/Implants Used: [employer] PowerPort isp M.R.I. 6Fr Lot [id number] Complications none
--- NOTE | 2023-06-20 08:46 | DCINST_ITS ---
Discharge Instructions Procedure Port-A-Cath Diet Discharge Diet: Light diet - advance as tolerated Activity May shower in (days): 5 (Keep port site clean and dry x5 days. Neck incision okay to get wet after 1 day. Okay to lower shower and upper sponge bath. OR okay to taper off port site with a Ziploc bag to shower) Lifting Restrictions: No lifting > 15 pounds for 3 days with the arm on the side of the port Dressing / Incision Call your doctor if your incision/area has: Continuous Slow Oozing, Sudden Increased Bleeding, Increased Pain/ Swelling, Increased Redness, Foul Smelling Discharge and Swelling at the incision site Call your doctor if you observe: Fever of 101 or Higher Change Dressing in: 2 days (2-3 days- port site; ok to remove neck opsite in 1 day) Follow Up Care Please Follow Up With: Margarita Dale MD When: In 10 days for permanent suture removal?call office for appointment Test Results: Test results from this visit will be discussed in further detail at your follow- up appointment, if applicable. Discharge Plan Admission Attending Provider: Margarita Dale Primary Care Provider: Hernandez Mcqueen Discharge Orders/Prescriptions Prescriptions: New oxycodone-acetaminophen 5-325 mg tablet 1 tab PO Q6H PRN (Reason: pain) 2 Days Qty: 5 0RF Continued MAGIC MOUTH WASH (BMX) 180 mL suspension 15 ml PO .qid PRN (Reason: pain) Qty: 180 5RF Rx Instructions: diphenhydramine 12.5 mg/5 mL oral liquid 60 mL; aluminum-mag hydroxide- simethicone 400 mg-400 mg-40 mg/5 mL oral susp 60 mL; Lidocaine Viscous 2 % mucosal solution 60 mL; Per 180 mL famotidine 20 mg tablet 20 mg PO DAILY gabapentin 300 mg capsule 300 mg PO QHS budesonide-formoterol [Symbicort] 160-4.5 mcg/actuation HFA aerosol inhaler 2 puff inhalation BID dexamethasone 4 mg tablet 4 mg PO DAILY Qty: 20 0RF ondansetron 8 mg tablet,disintegrating 8 mg PO Q8H PRN (Reason: nausea and vomiting) Qty: 30 1RF prochlorperazine maleate 10 mg tablet 10 mg PO Q6H PRN (Reason: nausea and vomiting) Qty: 30 2RF lidocaine-prilocaine 2.5-2.5 % cream 1 applic topical ONCE PRN (Reason: PORT ACCESS) 30 Days Qty: 30 2RF albuterol sulfate 1 PUFF inhaler 1 puff IH PRN PRN (Reason: Sob &/Or Wheezing) montelukast 10 mg tablet 10 mg PO DAILY lisinopril 20 mg tablet 20 mg PO DAILY hydrocodone-acetaminophen 5-325 mg tablet 1 tab PO Q6H PRN PRN (Reason: Pain) 3 Days Qty: 10 0RF oxycodone 5 mg tablet 5 mg PO Q6H PRN (Reason: pain) 3 Days Qty: 12 0RF atorvastatin 10 mg tablet 10 mg PO QHS Qty: 90 3RF (DME) Hair prostethesis See Rx Instructions .Route .MEDSUPPLY Qty: 1 0RF Rx Instructions: As directed colestipol 1 gram tablet 1 g PO BID Qty: 60 1RF Referrals / Follow Up: Hernandez Mcqueen MD [Primary Care Provider] - Disposition Disposition (needs filled in before D/C Order can be placed): Home, Self Care
== END 2023-06-20 10:14 | disposition home or self-care (01) ==
LOC: SDC 05:45 → AC 05:45
PROVIDERS: PCP Family Medicine; Referring Provider Surgery; Visit Provider Surgery
PROC: (CPT 36561; principal; 2023-06-20 07:15)
DX: Z45.2 Encounter for adjustment and management of vascular access device (principal); J44.9 Chronic obstructive pulmonary disease, unspecified; R91.8 Other nonspecific abnormal finding of lung field; I10 Essential (primary) hypertension; E78.00 Pure hypercholesterolemia, unspecified; K21.9 Gastro-esophageal reflux disease without esophagitis; Z92.21 Personal history of antineoplastic chemotherapy; Z87.891 Personal history of nicotine dependence; Z79.899 Other long term (current) drug therapy; Z86.16 Personal history of COVID-19
CPT/HCPCS: 36561; 00532; 71045; 77001; J7120; J2405

== ENCOUNTER 2023-07-01 18:39 | Inpatient (IN) | payer MEDICARE, MEDICAID, SELFPAY ==
[2023-07-01] VITALS (17 sets, daily range): BP systolic 66–113; BP diastolic 36–66; PULSE 84–106; RESP 16–28; TEMP 35.3–37.7; O2SAT 88–100; BMI 25.3; BMI 24.9
--- NOTE | 2023-07-01 19:04 | EKG12_ITS ---
Test Reason : DYSRHYTHMIA Blood Pressure : / mmHG Vent. Rate : 085 BPM Atrial Rate : 085 BPM P-R Int : 146 ms QRS Dur : 082 ms QT Int : 390 ms P-R-T Axes : 043 025 088 degrees QTc Int : 464 ms Normal sinus rhythm Nonspecific ST and T wave abnormality Abnormal ECG Confirmed by AILYN EATON, WAI ([id number]), commissioning editor FRANCESCA WINTERS ([id number]) on 07/05/2023 11:38:08 AM Referred By: MOMO Confirmed By:WAI ROBERTSON MD
--- NOTE | 2023-07-01 19:04 | CT_ITS ---
STUDY: CT ABDOMEN AND PELVIS WITH CONTRAST REASON FOR EXAM: Female, 73 years old. Pain, Diarrhea RADIATION DOSAGE (If Supplied By Facility): CTDIvol = ( 14.33 ) mGy, DLP = ( 588.86 ) mGycm TECHNIQUE: Transaxial images were obtained from the dome of the diaphragm to the symphysis pubis without oral contrast. IV 100mL Isovue-370 was administered. Sagittal and coronal images were reconstructed. Individualized dose optimization techniques were used for this CT. COMPARISON: Report dated 04/22/2021. FINDINGS: Mild bilateral lower lobe atelectasis with subpleural interstitial changes. Mild mosaic pattern, cannot exclude small airway disease. The visualized portions of the heart are within normal limits. Normal liver. Normal gallbladder and extrahepatic biliary system. Normal spleen. Normal pancreas. Normal bilateral adrenal glands. Normal right kidney. Normal left kidney. Mild to moderate hiatal hernia. The stomach is decompressed, otherwise unremarkable. Multiple loops of small bowel with thickening of the wall compatible with enteritis. Thickening of the wall throughout the mid-distal sigmoid concerning for distal colitis. There is mild distention with increased fecal debris throughout the remainder of the sigmoid with air-fluid levels throughout the remainder of the colon. Distinct appendix and visualized. Mild diverticulosis are colitis. There is diffuse atherosclerotic calcification of the abdominal aorta, without a demonstrated aneurysm. Normal inferior vena cava. Normal retroperitoneum. Urinary bladder is decompressed. Normal abdominal wall. Diffuse osteopenia with degenerative disease of the spine. Severe compression fracture of T11 with mild compression fracture of L2. CT/Abdomen/Pelvis W IV Cont ONLY IMPRESSION: Findings most compatible with nonspecific enteritis. Likely distal colitis with narrowing of the distal sigmoid. Constipation with fecal impaction through the mid anterior sigmoid encephali dilatation of the colon up to 4.8 cm. Clinical correlation recommended. Unremarkable abdominal viscera. Mild to moderate hiatal hernia. Electronically Signed: Alexandra York MD at 20:27 EDT ,
[2023-07-01] MEDS: 0.9% Normal Saline 1,000 ML 999 ML IV ×3 (19:06→21:18)
--- NOTE | 2023-07-01 19:07 | EX.ED.DYSGE1 ---
HPI History of Present Illness Chief Complaint: Nausea/Vomiting/Diarrhea Narrative Narrative: 73-year-old female past medical history of lung carcinoma on the right, undergoing chemotherapy, presents with her because of abdominal pain, nausea, vomiting, and diarrhea. She states her symptoms essentially started today. She had 2 episodes of vomiting that are nonbloody. She still feels nauseated. She took one of her Zofran, but is still experiencing nausea and vomiting. She also states that she had 3-4 episodes of loose stool and diarrhea. She states it is running out of me. It is nonbloody as well. She complains of diffuse abdominal pain as well. Her last chemotherapy was 2 weeks ago, and she is due in 2 days for another round. She denies any fevers or chills. She is unsure if her cancer has metastasized. Her states that she received the diagnosis of lung carcinoma 6 to 7 months ago, and sees Dr. Bryant. [facility] Medical History Alopecia Anemia Arthritis Asthma Back pain Benign neoplasm of colon Cancer Cancer related pain Cardiology follow-up encounter Chronic constipation Contact with and (suspected) exposure to other viral communicable diseases COPD (chronic obstructive pulmonary disease) COVID-19 Easy bruising Encounter for education Essential hypertension Fatigue Former smoker Gastric reflux Generalized weakness High cholesterol History of echocardiogram History of edema History of irregular heartbeat History of stress test Hyperlipidemia Hypertension Hypokalemia Mild aortic stenosis Nicotine dependence Pneumonia Restless legs Shortness of breath on exertion Wears dentures Wears glasses Home Medications albuterol sulfate 90 mcg/actuation aerosol inhaler 1 puff IH PRN PRN Sob &/Or Wheezing 04/17/19 [History Last Taken Unknown] atorvastatin 10 mg tablet 10 mg PO QHS #90 tabs 04/17/21 [Rx Last Taken Unknown] montelukast 10 mg tablet 10 mg PO DAILY 08/21/22 [History Last Taken Unknown] lisinopril 20 mg tablet 20 mg PO DAILY 12/06/22 [History Last Taken 06/20/23] Hair prostethesis #1 ea 01/17/23 [Rx Last Taken Unknown] MAGIC MOUTH WASH (BMX) 180 mL suspension 15 ml PO .qid PRN pain #180 mL 01/23/23 [Rx Last Taken Unknown] budesonide-formoterol HFA 160 mcg-4.5 mcg/actuation aerosol inhaler (Symbicort) 2 puff inhalation BID 03/18/23 [History Last Taken Unknown] famotidine 20 mg tablet 20 mg PO DAILY 03/18/23 [History Last Taken Unknown] gabapentin 300 mg capsule 300 mg PO QHS 03/18/23 [History Last Taken Unknown] colestipol 1 gram tablet 1 g PO BID #60 tabs 04/16/23 [Rx Last Taken Unknown] hydrocodone-acetaminophen 5-325mg 5mg-325mg 1 tab PO Q6H PRN PRN Pain 3 days #10 TABLETS 06/03/23 [Rx Last Taken Unknown] oxycodone 5 mg tablet 5 mg PO Q6H PRN pain 3 days #12 tabs 06/11/23 [Rx Last Taken Unknown] dexamethasone 4 mg tablet 4 mg PO DAILY #20 tabs 06/18/23 [Rx Last Taken Unknown] lidocaine-prilocaine 2.5 %-2.5 % topical cream 1 applic topical ONCE PRN PORT ACCESS 30 days #30 grams 06/19/23 [Rx Last Taken Unknown] ondansetron 8 mg disintegrating tablet 8 mg PO Q8H PRN nausea and vomiting #30 tabs 06/19/23 [Rx Last Taken Unknown] prochlorperazine maleate 10 mg tablet 10 mg PO Q6H PRN nausea and vomiting #30 tabs 06/19/23 [Rx Last Taken Unknown] oxycodone-acetaminophen 5 mg-325 mg tablet 1 tab PO Q6H PRN pain 2 days #5 tabs 06/20/23 [Rx Last Taken Unknown] Allergy/AdvReac Type Severity Reaction Status Date / Time watermelon Allergy Intermediate Hives Verified 07/01/23 18:42 Family History Father Cancer spinal Mother Alzheimer's disease Brother Pacemaker Surgical History History of amputation of finger of right hand History of appendectomy History of breast surgery History of cataract extraction History of cystoscopy History of D&C History of hysterectomy History of toe surgery History of tonsillectomy Social History household members: spouse pets and animals: Yes (dogs) Smoking Status: Former smoker how long ago did patient quit smokin alcohol intake: former substance use type: does not use ROS ROS ED ROS Narrative Constitutional: No fever, no chills. Generalized weakness. HEENT: No sore throat. No neck pain. No loss of vision. No rhinorrhea. Cardiovascular: No chest pain. No palpitations. No pedal edema. Respiratory: No cough, no shortness of breath. Abdominal: Positive diffuse abdominal pain. 2-3 episodes of nausea and vomiting today. 3-4 episodes of loose stool, nonbloody. Genitourinary: No dysuria. No hematuria. Musculoskeletal: No myalgias. No arthralgias. Neurologic: No headaches. No dizziness. No lightheadedness. Skin: No rash. No change in color. Psychiatric: No depression. No anxiety. EXAM Physical Exam Narrative Exam Narrative: Afebrile. Vital signs noted. Positive hypotension with systolic blood pressure in the 70s. HEENT: Normocephalic. Atraumatic. PERRL, EOMI. Neck soft and supple. No point tenderness or step off. Dry mucous membranes. Cardiovascular: Regular rate and rhythm. No murmurs, rubs, or gallops appreciated. Respiratory: No tachypnea. Lungs clear to auscultation bilaterally. Gastrointestinal: Abdomen soft, diffuse tenderness to palpation with normoactive bowel sounds. No rebound or guarding. Neurological: Awake. Alert. Nonfocal, nonlateralizing. Skin: No rash. Normal color. No pallor. Musculoskeletal: No pedal edema. Full range of motion extremities. Const Vital Signs: 07/01/23 18:42 07/01/23 18:39 07/01/23 18:51 Temperature 97.6 F L 95.5 F L Temperature Source Oral Temporal Pulse Rate 85 89 84 Respiratory Rate 22 H 28 H 16 Blood Pressure 69/48 L 74/59 L Blood Pressure Mean 55 64 Pulse Ox 97 95 94 Oxygen Delivery Method Room Air Room Air Room Air 07/01/23 19:08 07/01/23 20:03 07/01/23 19:51 Temperature 98.8 F Temperature Source Oral Pulse Rate 98 86 Respiratory Rate 23 H 19 H Blood Pressure 73/55 L 79/45 L Blood Pressure Mean 61 56 Pulse Ox 92 92 Oxygen Delivery Method Room Air Room Air Room Air MDM MDM MDM Narrative Medical decision making narrative: Patient began dry heaving and vomiting in the emergency department after history and physical was obtained. She was administered Zofran. As she is hypotensive she was bolused 1 L normal saline. Her port can be accessed. Sepsis work-up was pursued. I do feel CT imaging is indicated. Of note, I did have a discussion with the patient and her . She states that she does not want any life support measures such as intubation or chest compressions. Essentially, I do feel that she is DO NOT RESUSCITATE Comfort Care arrest currently as she is still undergoing chemotherapy treatment. I reviewed her laboratory work from today and she has a normal white count of 7.8, hemoglobin stable at 9.7, platelet count 179. Coagulation studies are grossly normal with an INR of 1.0 and an APTT less than 20. Sodium normal at 141, potassium 3.9, chloride 105. She has an elevated BUN of 36 and a creatinine of 1.39 indicating acute kidney injury as her prior was 0.8. I do feel that she is dehydrated. Glucose is appropriately elevated at 132 with a normal anion gap of 7. High-sensitivity troponin is 47. EKG was obtained and interpreted by myself independently as normal sinus rhythm at 85 bpm without ectopy or acute ST changes, she does have mild ST depression cross the precordium with inverted T waves in V2. I reviewed her chest x-ray in 1 view independently and see chronic changes and her right-sided port but no significant change from previous. Appears stable in comparison to previous. I reviewed the radiology report which confirms my independent interpretation. I reviewed the radiology report of the CT of the abdomen and pelvis which does show small bowel wall thickening consistent with enteritis. She does have distal sigmoid colon wall thickening consistent with colitis. Additionally, she may have a fecal impaction through the mid anterior sigmoid colon. She was treated with Zosyn for intra-abdominal sepsis as she has an elevated lactic acid of 3.8. I do feel that her lactic acidosis may be also from mild dehydration. Patient will be given fentanyl for analgesia. This was after discussion with Dr. Hernandez Mcqueen who is the hospitalist on for this evening. She will be admitted to the PCU in stable condition. History & Record Review Discussion w/independent historian: Patient and Family Additional record(s) reviewed:: Prior ED visit and Prior labs Lab Data Attestation: I reviewed the patient's lab results. Labs: Laboratory Results - last 24 hr 07/01/23 18:57 WBC 7.8 RBC 3.23 L Hgb 9.7 L Hct 32.9 L MCV 101.9 H MCH 30.0 MCHC 29.5 L RDW Std Deviation 50.8 H RDW Coeff of Eloisa 13.5 Plt Count 179 MPV 10.4 Immature Gran % (Auto) 0.500 Neut % (Auto) 76.0 H Lymph % (Auto) 20.0 [place] % (Auto) 1.8 Eos % (Auto) 1.4 Baso % (Auto) 0.3 Absolute Neuts (auto) 5.9 Absolute Lymphs (auto) 1.56 Nucleated RBC % 0 PT 12.7 INR 1.0 APTT < 20.0 L Sodium 141 Potassium 3.9 Chloride 105 Carbon Dioxide 29.0 Anion Gap 7 BUN 36 H Creatinine 1.39 H Estim Creat Clear Calc 29.37 Est GFR (MDRD) Af Amer 48 L Est GFR (MDRD) Non-Af 39 L BUN/Creatinine Ratio 25.9 H Glucose 132 H Lactic Acid 3.8 H* Calcium 9.4 Total Bilirubin 0.30 AST 26 ALT 33 Alkaline Phosphatase 114 Troponin I High Sens 47 Total Protein 5.9 L Albumin 2.8 L Globulin 3.1 Albumin/Globulin Ratio 0.9 Radiography Diagnostic Testing: Clinical Impression(s) from Imaging Studies Abdomen/Pelvis CT 07/01/23 19:04 IMPRESSION: Findings most compatible with nonspecific enteritis. Likely distal colitis with narrowing of the distal sigmoid. Constipation with fecal impaction through the mid anterior sigmoid encephali dilatation of the colon up to 4.8 cm. Clinical correlation recommended. Unremarkable abdominal viscera. Mild to moderate hiatal hernia. Electronically Signed: Alexandra York MD at 20:27 EDT , Chest X-Ray 07/01/23 19:53 IMPRESSION: Minimal left basilar atelectasis with interstitial changes versus scarring in the right upper lung, stable in the interval. No acute cardiac pulmonary disease. Right-sided chest port as described. Electronically Signed: Alexandra York MD at 20:29 EDT , Management Discussion w/another healthcare provider: Hospitalist (Dr. Hernandez Mcqueen) Discharge Plan Dx/Rx/DC Orders Clinical Impression: Nausea, vomiting, and diarrhea, NSCLC of upper lobe, Dehydration, Acute kidney injury, Lactic acidosis Disposition Disposition: Acute Care Hospital [facility]
[2023-07-01] MEDS: Ondansetron 4 MG/2 ML Vial IV (19:11)
[2023-07-01 19:14] LABS: Absolute Lymphocyte Count 1.56 X10^3/uL (0.83-4.51); Absolute Neutrophil Count 5.9 X10^3/uL (2.0-7.7); Basophil# 0.02 X10^3/uL; Basophil% 0.3 % (0-1); Eosinophil# 0.11 X10^3/uL; Eosinophils% 1.4 % (0-5); Hematocrit 32.9 % (37-47); Hemoglobin 9.7 g/dL (12.0-15.0); Lymphocyte # 1.56 X10^3/ul (0.83-4.51); Mean Corp Hgb Conc 29.5 g/dL (32-36); Mean Corpuscular Volume 101.9 fL (81-99); Mean Platelet Vol. 10.4 fl (6.2-12.0); Monocyte# 0.14 X10^3/uL; Monocyte% 1.8 % (0-10); NRBC Flagged by Analyzer 0 % (0-5); Neutrophil # 5.92 X10^3/uL (2.7-7.7); Platelet Count 179 K/mm3 (150-450); RBC Distribution Width CV 13.5 % (11.6-14.6); RBC Distribution Width SD 50.8 fl (35.1-43.9); Red Blood Count 3.23 M/mm3 (4.2-5.4); White Blood Count 7.8 K/mm3 (4.4-11.0)
[2023-07-01 19:21] LABS: Prothrombin Time (Protime)PT. 12.7 SECONDS (11.7-14.9)
--- NOTE | 2023-07-01 19:30 | ED.RN ---
This RN and medic both attempted straight cath to obatin urine, unable to obtain. Bladder scanned for [address] Alberto.
[2023-07-01 19:31] LABS: ALB/GLOB Ratio 0.9 RATIO (0.9-2.4); AST(SGOT) 26 U/L (15-37); Alanine Aminotransfer ALT/SGPT 33 U/L (13-56); Albumin, Serum 2.8 g/dL (3.2-5.0); Alkaline Phosphatase 114 U/L (45-117); Anion Gap 7 (5-15); BUN 36 mg/dL (7-18); BUN/Creat Ratio 25.9 RATIO (10-20); Calcium,Total 9.4 mg/dL (8.5-10.1); Chloride 105 mmol/L (98-107); Creatinine, Serum 1.39 mg/dL (0.55-1.02); EST Glomerular Filtration Rate 39 mL/min (>60); Est Glom Filt Rate - Afr Amer 48 mL/min (>60); Estimated Creatinine Clearance 29.37 ml/min; Globulin 3.1 g/dL (2.2-4.2); Glucose 132 mg/dL (74-106); Potassium 3.9 mmol/L (3.5-5.1); Protein, Total 5.9 g/dL (6.4-8.2); Sodium Level 141 mmol/L (136-145); Troponin-I HS 47 pg/mL (3.0-54.0)
[2023-07-01 19:40] LABS: Lactic Acid 3.8 mmol/L (0.4-1.9)
--- NOTE | 2023-07-01 19:53 | RAD_ITS ---
STUDY: X-RAY CHEST REASON FOR EXAM: Female, 73 years old. Lung cancer TECHNIQUE: Single AP portable view of the chest. COMPARISON: 06/20/2023. FINDINGS: Right-sided chest port with the tip in the middle SVC. The lungs are well expanded with minimal left basilar atelectasis. There is mild interstitial prominence in the lateral right upper lung and biapical region, stable. Otherwise lung mar are clear. There is no demonstrated pleural abnormality. Normal size heart. Normal mediastinum and rosamaria. Normal visualized pulmonary arteries. Normal visualized aortic arch and descending thoracic aorta. There is demineralization of the osseous structures. There is degenerative osteoarthritis of the bilateral shoulders and spine. There is no demonstrated abnormality of the visualized soft tissue structures of the upper abdomen. RAD/Chest 1 View (Portable) IMPRESSION: Minimal left basilar atelectasis with interstitial changes versus scarring in the right upper lung, stable in the interval. No acute cardiac pulmonary disease. Right-sided chest port as described. Electronically Signed: Alexandra York MD at 20:29 EDT ,
[2023-07-01] MEDS: Dicyclomine 20 MG/2 ML Vial IM (19:54)
[2023-07-01 19:58] LABS: Partial Thromboplast Time < 20.0 Seconds (24.1-36.2)
--- NOTE | 2023-07-01 20:50 | PCM.HP.STD ---
[facility] - General General Date of Admission: 07/01/23 Date of Service: 07/01/23 Chief Complaint: Abdominal pain with nausea and vomiting [facility] Narrative JUAN HAWKINS, is a 73 F who presents to the emergency room with chief complaint of abdominal pain with nausea and vomiting. Patient has significant past medical history of lung cancer in the right lung who is status postchemotherapy approximately 2 weeks ago. She has had a loss of appetite and complains of frequent loose stools with nausea and vomiting. She complains of excessive fatigue and is unable to get comfortable at present time due to pain in her abdomen. CT scan reveals possible colitis and or fecal impaction. White blood cell count is unremarkable however her lactic acid level is elevated. She will be admitted to progressive care unit for IV hydration and treatment of her pain in the abdomen. She did receive a dose of IV antibiotics in the emergency room which we will continue for now. None the patient blood pressure has responded to fluid hydration she will be able to receive stronger pain medications. [facility] Medical History Alopecia Anemia Arthritis Asthma Back pain Benign neoplasm of colon Cancer Cancer related pain Cardiology follow-up encounter Chronic constipation Contact with and (suspected) exposure to other viral communicable diseases COPD (chronic obstructive pulmonary disease) COVID-19 Easy bruising Encounter for education Essential hypertension Fatigue Former smoker Gastric reflux Generalized weakness High cholesterol History of echocardiogram History of edema History of irregular heartbeat History of stress test Hyperlipidemia Hypertension Hypokalemia Mild aortic stenosis Nicotine dependence Pneumonia Restless legs Shortness of breath on exertion Wears dentures Wears glasses Home Medications albuterol sulfate 90 mcg/actuation aerosol inhaler 1 puff IH PRN PRN Sob &/Or Wheezing 04/17/19 [History Last Taken Unknown] atorvastatin 10 mg tablet 10 mg PO QHS #90 tabs 04/17/21 [Rx Last Taken Unknown] montelukast 10 mg tablet 10 mg PO DAILY 08/21/22 [History Last Taken Unknown] lisinopril 20 mg tablet 20 mg PO DAILY 12/06/22 [History Last Taken 06/20/23] Hair prostethesis #1 ea 01/17/23 [Rx Last Taken Unknown] MAGIC MOUTH WASH (BMX) 180 mL suspension 15 ml PO .qid PRN pain #180 mL 01/23/23 [Rx Last Taken Unknown] budesonide-formoterol HFA 160 mcg-4.5 mcg/actuation aerosol inhaler (Symbicort) 2 puff inhalation BID 03/18/23 [History Last Taken Unknown] famotidine 20 mg tablet 20 mg PO DAILY 03/18/23 [History Last Taken Unknown] gabapentin 300 mg capsule 300 mg PO QHS 03/18/23 [History Last Taken Unknown] colestipol 1 gram tablet 1 g PO BID #60 tabs 04/16/23 [Rx Last Taken Unknown] hydrocodone-acetaminophen 5-325mg 5mg-325mg 1 tab PO Q6H PRN PRN Pain 3 days #10 TABLETS 06/03/23 [Rx Last Taken Unknown] oxycodone 5 mg tablet 5 mg PO Q6H PRN pain 3 days #12 tabs 06/11/23 [Rx Last Taken Unknown] dexamethasone 4 mg tablet 4 mg PO DAILY #20 tabs 06/18/23 [Rx Last Taken Unknown] lidocaine-prilocaine 2.5 %-2.5 % topical cream 1 applic topical ONCE PRN PORT ACCESS 30 days #30 grams 06/19/23 [Rx Last Taken Unknown] ondansetron 8 mg disintegrating tablet 8 mg PO Q8H PRN nausea and vomiting #30 tabs 06/19/23 [Rx Last Taken Unknown] prochlorperazine maleate 10 mg tablet 10 mg PO Q6H PRN nausea and vomiting #30 tabs 06/19/23 [Rx Last Taken Unknown] oxycodone-acetaminophen 5 mg-325 mg tablet 1 tab PO Q6H PRN pain 2 days #5 tabs 06/20/23 [Rx Last Taken Unknown] Allergy/AdvReac Type Severity Reaction Status Date / Time watermelon Allergy Intermediate Hives Verified 07/01/23 18:42 Family History Father Cancer spinal Mother Alzheimer's disease Brother Pacemaker Surgical History History of amputation of finger of right hand History of appendectomy History of breast surgery History of cataract extraction History of cystoscopy History of D&C History of hysterectomy History of toe surgery History of tonsillectomy Social History household members: spouse pets and animals: Yes (dogs) Smoking Status: Former smoker how long ago did patient quit smokin alcohol intake: former substance use type: does not use Vital Signs Vital Signs Vital Signs: 07/01/23 18:42 07/01/23 18:39 07/01/23 18:51 Temperature 97.6 F L 95.5 F L Temperature Source Oral Temporal Pulse Rate 85 89 84 Respiratory Rate 22 H 28 H 16 Blood Pressure 69/48 L 74/59 L Blood Pressure Mean 55 64 Pulse Ox 97 95 94 Oxygen Delivery Method Room Air Room Air Room Air 07/01/23 19:08 07/01/23 20:03 07/01/23 19:51 Temperature 98.8 F Temperature Source Oral Pulse Rate 98 86 Respiratory Rate 23 H 19 H Blood Pressure 73/55 L 79/45 L Blood Pressure Mean 61 56 Pulse Ox 92 92 Oxygen Delivery Method Room Air Room Air Room Air Weight Weight: 143 lb Body Mass Index (BMI) 25.3 Results Lab / Micro Data 07/01/23 18:57 07/01/23 18:57 Labs: Laboratory Results - last 24 hr 07/01/23 18:57: WBC 7.8, RBC 3.23 L, Hgb 9.7 L, Hct 32.9 L, MCV 101.9 H, MCH 30.0, MCHC 29.5 L, RDW Std Deviation 50.8 H, RDW Coeff of Eloisa 13.5, Plt Count 179, MPV 10.4, Immature Gran % (Auto) 0.500, Neut % (Auto) 76.0 H, Lymph % (Auto) 20.0, [place] % (Auto) 1.8, Eos % (Auto) 1.4, Baso % (Auto) 0.3, Absolute Neuts (auto) 5.9, Absolute Lymphs (auto) 1.56, Nucleated RBC % 0, PT 12.7, INR 1.0, APTT < 20.0 L, Sodium 141, Potassium 3.9, Chloride 105, Carbon Dioxide 29.0, Anion Gap 7, BUN 36 H, Creatinine 1.39 H, Estim Creat Clear Calc 29.37, Est GFR (MDRD) Af Amer 48 L, Est GFR (MDRD) Non-Af 39 L, BUN/Creatinine Ratio 25.9 H, Glucose 132 H, Lactic Acid 3.8 H*, Calcium 9.4, Total Bilirubin 0.30, AST 26, ALT 33, Alkaline Phosphatase 114, Troponin I High Sens 47, Total Protein 5.9 L, Albumin 2.8 L, Globulin 3.1, Albumin/Globulin Ratio 0.9 Radiology Impression Abdomen/Pelvis CT 07/01/23 19:04 IMPRESSION: Findings most compatible with nonspecific enteritis. Likely distal colitis with narrowing of the distal sigmoid. Constipation with fecal impaction through the mid anterior sigmoid encephali dilatation of the colon up to 4.8 cm. Clinical correlation recommended. Unremarkable abdominal viscera. Mild to moderate hiatal hernia. Electronically Signed: Alexandra York MD at 20:27 EDT , Chest X-Ray 07/01/23 19:53 IMPRESSION: Minimal left basilar atelectasis with interstitial changes versus scarring in the right upper lung, stable in the interval. No acute cardiac pulmonary disease. Right-sided chest port as described. Electronically Signed: Alexandra York MD at 20:29 EDT ,
[2023-07-01] MEDS: fentaNYL 100 MCG/2 ML Ampul 25 MCG IV (21:00)
[2023-07-01 21:43] LABS: Bacteria 0 SEEN /hpf (None Seen); Mucous, Urine 0 SEEN /hpf (<or=2+); Red Blood Cells-Urine 0 SEEN /hpf (0-5); Squamous Epithelial Cells - UA 0 SEEN /hpf (5-10)
[2023-07-01 22:01] LABS: Color, Urine Yellow (Yellow); Glucose, Dipstick Normal (Normal); Ketone-Dipstick Negative (Negative); Leukocyte Esterase-Dipstick 25 /ul (Negative); Nitrite-Dipstick Negative (Negative); Occult Blood-Urine 25 /ul (Negative); Protein-Dipstick 15 mg/dl (Negative); Urine Bilirubin Dipstick Negative (Negative); Urine Clarity Clear (Clear); Urine Urobilinogen Normal (Normal)
[2023-07-01 22:31] LABS: White Blood Cells 0-5 SEEN /hpf (0-5)
[2023-07-01] MEDS: Gabapentin 300 MG Capsule PO (22:57)
[2023-07-01] MEDS: Colestipol 1 GM TABLET PO (22:57)
[2023-07-01] MEDS: 0.9% Normal Saline 1,000 ML 125 ML IV (22:57)
[2023-07-01] MEDS: Atorvastatin Calcium 10 MG Tablet PO (22:57)
[2023-07-01 23:09] LABS: Reflex Lactate? Y
[2023-07-02] VITALS (47 sets, daily range): BP systolic 57–190; BP diastolic 37–91; PULSE 74–102; RESP 14–33; TEMP 36.6–38.1; O2SAT 89–100; BMI 24.9
--- NOTE | 2023-07-02 | COL_PTH ---
PATIENT: JUAN HAWKINS LOC: MS3 U#:[id number] AGE/SX: 73/F ROOM: [facility] [place] RE07/01/[address]: Dr. Jeff Romano DO : 1950 BED: 1 DIS: 07/08/2023 SPEC #: [id number] RECD: 07/03/23 07:44 STATUS: RAQUEL RERoxi #: [id number] VERONICA: 07/02/23 00:[address]: Margarita Dale DEPT: SURGICAL PATHOLOGY RECD BY: Yessy Le ENTERED: 07/03/23 09:02 SP TYPE: COLON OTHR DR: MD Dr. Jovan Stevens DO Dr. Lee Ann Baggott, MD Dr. Nicholas F Kotsonis, MD Dr. Paul Nielsen, MD Dr. Tanmay Panchabhai, MD Dr. Tamera Robotham, MD Christina Muller, SALES SERVICE COORDINATOR-C Tissues: A - Colon, NOS B - COLON BIOPSY Procedures: Surgery Specimen Level V Comments: @ Ordering doctor for SUIV edited from to @ by RAJAT at 07/03/23 1506 @ Ordering doctor for SUV edited from to @ by RAJAT at 07/03/23 1506 @ Submitting doctor edited from to DR.TROBOT Mejia by RAJAT at 07/03/23 1506 HEADER OPERATION: Exploratory laparotomy, bowel resection, left hemicolectomy PRE-OP DIAGNOSIS: Enteritis, colitis, lactic acidosis, acute kidney injury, nausea, vomiting, diarrhea TISSUE SUBMITTED: A - Left hemicolectomy, stitch del rio distal, B - Colostomy MICROSCOPIC DIAGNOSIS A. Left colon, hemicolectomy: Acute ischemic and hemorrhagic colitis with ulceration and fibrinopurulent exudate. One out of one lymph node with no pathologic change. B. Colostomy, segmental resection: Acute ischemic and hemorrhagic colitis with ulceration and fibrinopurulent exudate. AM:freda 07/05/2023 COMMENT Case has been reviewed in consultation with Dr. Dunn who concurs with the above diagnosis. IDC:CARRIE MICROSCOPIC DESCRIPTION Slides are reviewed. Sections of both submitted portions of bowel show transmural acute inflammation. The mucosa shows ischemic changes, sloughing/denudation, and varying degrees of hemorrhagic infarction. Fibrinopurulent material is generously distributed at the mucosal surface throughout the areas of involvement. These pathologic findings are also noted focally at the proximal mucosal margin in specimen `A'. Clinical correlation is suggested. GROSS DESCRIPTION A - Received in fixative is one container labeled with the patient's name and designated left hemicolectomy. The specimen consists of a segment of colon with attached pericolonic adipose tissue measuring 32.0 cm in length. Both resection margins are stapled. The distal resection margin is identified by a suture. The lumen contains hemorrhagic material. The mucosa shows ulceration, congestion and hemorrhage throughout the whole length of the colon. No tumor mass is identified. Sections will be submitted after fixation. / :freda 07/03/2023 Sections of pericolonic adipose tissue do not reveal any obviously enlarged lymph node. Manager Title sections are submitted in nine cassettes as follows: 1 - proximal resection margin, 2 - distal resection margin, 3-8 - mucosal bowel wall every 5.0 cm, from proximal to distal resection margin, 9??pericolonic adipose tissue. / :freda 07/04/2023 B - Received in fixative is one container labeled with the patient's name and designated colostomy. The specimen consists of two pieces of bowel tissue measuring in aggregate 3.5 x 3.0 x 1.2 cm. One of the pieces show multiple shaunna. Manager Title sections are submitted in three cassettes as follows: 1??piece of bowel tissue without shaunna, 2 - piece of bowel tissue with shaunna, 3 - piece of bowel tissue with attached pericolonic adipose tissue. / :freda 07/04/2023 TC:2 CPT: 67115 x2
[2023-07-02 00:47] LABS: Lactic Acid 2.1 mmol/L (0.4-1.9)
[2023-07-02 06:28] LABS: Absolute Lymphocyte Count 0.33 X10^3/uL (0.83-4.51); Absolute Neutrophil Count 10.6 X10^3/uL (2.0-7.7); Basophil# 0.04 X10^3/uL; Basophil% 0.4 % (0-1); Eosinophil# 0.01 X10^3/uL; Eosinophils% 0.1 % (0-5); Hematocrit 26.9 % (37-47); Hemoglobin 7.9 g/dL (12.0-15.0); Lymphocyte # 0.33 X10^3/ul (0.83-4.51); Mean Corp Hgb Conc 29.4 g/dL (32-36); Mean Corpuscular Hgb 30.2 pg (27.0-32.0); Mean Corpuscular Volume 102.7 fL (81-99); Mean Platelet Vol. 10.2 fl (6.2-12.0); Monocyte# 0.14 X10^3/uL; Monocyte% 1.3 % (0-10); NRBC Flagged by Analyzer 0 % (0-5); Neutrophil # 10.61 X10^3/uL (2.7-7.7); Neutrophil % 94.8 % (47-70); POSITIVE DIFFERENTIAL YES; POSITIVE MORPHOLOGY YES; Platelet Count 117 K/mm3 (150-450); RBC Distribution Width CV 13.6 % (11.6-14.6); Red Blood Count 2.62 M/mm3 (4.2-5.4); White Blood Count 11.2 K/mm3 (4.4-11.0)
[2023-07-02 06:31] LABS: Differential Indicated SCAN CRITERIA MET
[2023-07-02 06:45] LABS: Macrocytosis RARE; Platelet Estimate SLT DEC (ADEQ)
[2023-07-02 06:51] LABS: ALB/GLOB Ratio 0.9 RATIO (0.9-2.4); AST(SGOT) 28 U/L (15-37); Alanine Aminotransfer ALT/SGPT 28 U/L (13-56); Albumin, Serum 2.2 g/dL (3.2-5.0); Alkaline Phosphatase 68 U/L (45-117); Anion Gap 6 (5-15); BUN 37 mg/dL (7-18); BUN/Creat Ratio 27.6 RATIO (10-20); Calcium,Total 7.6 mg/dL (8.5-10.1); Chloride 114 mmol/L (98-107); Creatinine, Serum 1.34 mg/dL (0.55-1.02); EST Glomerular Filtration Rate 41 mL/min (>60); Est Glom Filt Rate - Afr Amer 50 mL/min (>60); Estimated Creatinine Clearance 30.47 ml/min; Globulin 2.5 g/dL (2.2-4.2); Glucose 113 mg/dL (74-106); Magnesium 2.1 mg/dL (1.6-2.6); Potassium 4.4 mmol/L (3.5-5.1); Protein, Total 4.7 g/dL (6.4-8.2); Sodium Level 145 mmol/L (136-145)
--- NOTE | 2023-07-02 07:11 | EX.PCM.CONCC ---
Assessment & Plan Assessment/Plan (1) Acute kidney injury: (2) Colitis: (3) Enteritis: PLAN: Plan RECOMMENDATIONS: 1. Continue supplemental IV fluid hydration, given n.p.o. status. 2. Continue empiric antimicrobials, pending finalized culture results. 3. Continue Levophed to maintain a mean arterial pressure at or above 65 mmHg. 4. Obtain gastroenterology consultation. 5. Send type and screen. Transfuse if hemoglobin drops below 7 g/dL. 6. Start twice daily PPI therapy. 7. Consider repeat abdominal imaging. 8. Obtain repeat lactic acid. IMPRESSIONS: 1. Multifactorial shock The patient presented to the hospital with abdominal pain, nausea, vomiting and some diarrhea along with findings of nonspecific enteritis noted on CT imaging of the abdomen. The patient's hypotension is likely multifactorial in etiology with hypovolemia and potential sepsis contributing. Given the enteritis noted on imaging, there may be a GI source of infection. C. difficile colitis is currently being ruled out. Plan to continue aggressive volume resuscitation vasopressor support to maintain mean arterial pressure at or above 65 mmHg. Cultures are pending. The patient's presenting symptoms could also be a consequence of the chemotherapy that she was recently initiated on. Lastly, given the patient's ongoing complaints of abdominal pain, will obtain follow-up lactate level. Ultimately, the patient may require repeat imaging of her abdomen. 2. Non-small cell carcinoma of lung The patient is status post chemoradiation therapy with pet imaging in April demonstrating progressive disease. Therefore, the patient was just recently started on second round chemotherapy per oncology. 3. Anemia/thrombocytopenia Stool for occult blood was noted to be positive. Hemoglobin has dropped to 7.9 g/dL. Plan to send type and screen. Start PPI therapy twice daily. Recommend gastroenterology consultation. Plan to transfuse if hemoglobin drops below 7 g/dL. 4. Acute kidney injury Most likely prerenal in etiology in the setting of #1. Continue to monitor urine output for now. No current indication for renal replacement therapy. 5. History of COPD/aortic sclerosis/hypertension/hyperlipidemia Complicates care, management, recovery and prognosis. Continue as needed bronchodilator therapy. TIME: 34 minutes of critical care time, independent of procedures, was spent addressing the patient's multifactorial shock, anemia, thrombocytopenia, acute kidney injury, non-small cell carcinoma of the lung, review of all data and collaboration with care team. HPI Consult Data Date of Consult: 07/02/23 HPI Narrative Reason for Consultation: Shock HPI Narrative: The patient is a 73-year-old female, with a history as outlined below, who presented to the emergency department on July 01 with abdominal pain, nausea, vomiting and diarrhea. The patient has a medical history significant for hypertension, hyperlipidemia, aortic sclerosis, COPD along with squamous cell lung cancer. With regard to her lung cancer, the patient is status post chemoradiation therapy with pet imaging in April 2023 demonstrating persistent/progressive disease in the right upper lobe. She was recently restarted on second round chemotherapy. She is followed by Dr. Bryant of oncology. On presentation to the emergency department, the patient was noted to have a low-grade fever along with mild tachycardia and tachypnea. Her blood pressures were quite tenuous. Initial laboratory evaluation revealed no evidence of a leukocytosis. Chemistry profile was notable for a creatinine of 1.39. Lactate was elevated at 3.8. Urine analysis was noncontributory. CT abdomen/pelvis demonstrated nonspecific enteritis along with distal colitis with narrowing of the distal sigmoid. Blood and urine cultures were obtained. Stool for occult blood was positive. The patient received supplemental IV fluid hydration, but ultimately required initiation of vasopressor support. The patient continues to report some ongoing abdominal pain. She apparently had a bowel movement according to nursing staff overnight. Hemoglobin is down to 7.9 g/dL this morning. [facility] Medical History Alopecia Anemia Arthritis Asthma Back pain Benign neoplasm of colon Cancer Cancer related pain Cardiology follow-up encounter Chronic constipation Contact with and (suspected) exposure to other viral communicable diseases COPD (chronic obstructive pulmonary disease) COVID-19 Easy bruising Encounter for education Essential hypertension Fatigue Former smoker Gastric reflux Generalized weakness High cholesterol History of echocardiogram History of edema History of irregular heartbeat History of stress test Hyperlipidemia Hypertension Hypokalemia Mild aortic stenosis Nicotine dependence Pneumonia Restless legs Shortness of breath on exertion Wears dentures Wears glasses Home Medications albuterol sulfate 90 mcg/actuation aerosol inhaler 1 puff IH PRN PRN Sob &/Or Wheezing 04/17/19 [History Last Taken Unknown] atorvastatin 10 mg tablet 10 mg PO QHS #90 tabs 04/17/21 [Rx Last Taken Unknown] montelukast 10 mg tablet 10 mg PO DAILY 10/25/22 [History Last Taken Unknown] lisinopril 20 mg tablet 20 mg PO DAILY 12/06/22 [History Last Taken 06/20/23] Hair prostethesis #1 ea 01/17/23 [Rx Last Taken Unknown] budesonide-formoterol HFA 160 mcg-4.5 mcg/actuation aerosol inhaler (Symbicort) 2 puff inhalation BID 03/18/23 [History Last Taken Unknown] gabapentin 300 mg capsule 300 mg PO QHS 03/18/23 [History Last Taken Unknown] colestipol 1 gram tablet 1 g PO BID #60 tabs 04/16/23 [Rx Last Taken Unknown] hydrocodone-acetaminophen 5-325mg 5mg-325mg 1 tab PO Q6H PRN PRN Pain 3 days #10 TABLETS 06/03/23 [Rx Last Taken Unknown] dexamethasone 4 mg tablet 4 mg PO DAILY #20 tabs 06/18/23 [Rx Last Taken Unknown] lidocaine-prilocaine 2.5 %-2.5 % topical cream 1 applic topical ONCE PRN PORT ACCESS 30 days #30 grams 06/19/23 [Rx Last Taken Unknown] ondansetron 8 mg disintegrating tablet 8 mg PO Q8H PRN nausea and vomiting #30 tabs 06/19/23 [Rx Last Taken Unknown] prochlorperazine maleate 10 mg tablet 10 mg PO Q6H PRN nausea and vomiting #30 tabs 06/19/23 [Rx Last Taken Unknown] Allergy/AdvReac Type Severity Reaction Status Date / Time watermelon Allergy Intermediate Hives Verified 07/01/23 18:42 Family History Father Cancer spinal Mother Alzheimer's disease Brother Pacemaker Surgical History History of amputation of finger of right hand History of appendectomy History of breast surgery History of cataract extraction History of cystoscopy History of D&C History of hysterectomy History of toe surgery History of tonsillectomy Social History household members: spouse pets and animals: Yes (dogs) Smoking Status: Former smoker how long ago did patient quit smokin alcohol intake: former substance use type: does not use ROS ROS Narrative 10 systems reviewed with pertinent positives as noted in the HPI above. Physical Exam Const alert and no apparent distress General Appearance: cooperative HEENT normocephalic and head/scalp atraumatic Eyes PERRL, EOMs intact bilaterally and conjunctivae normal Neck supple General: trachea midline Chest inspection of chest normal Resp normal respiratory effort Auscultation: Negative for rales, rhonchi or wheezes Cardio regular rate and regular rhythm GI soft to palpation GI Narrative: Mild nonfocal tenderness to palpation. Extremity no clubbing, cyanosis or edema Skin no rashes or lesions noted Neuro moves all extremities and no focal motor deficits Psych Mood & Affect: flat affect Lab / Micro Data 07/02/23 05:30 07/02/23 05:30 Labs: Laboratory Results - last 24 hr 07/01/23 18:57: WBC 7.8, RBC 3.23 L, Hgb 9.7 L, Hct 32.9 L, MCV 101.9 H, MCH 30.0, MCHC 29.5 L, RDW Std Deviation 50.8 H, RDW Coeff of Eloisa 13.5, Plt Count 179, MPV 10.4, Immature Gran % (Auto) 0.500, Neut % (Auto) 76.0 H, Lymph % (Auto) 20.0, [place] % (Auto) 1.8, Eos % (Auto) 1.4, Baso % (Auto) 0.3, Absolute Neuts (auto) 5.9, Absolute Lymphs (auto) 1.56, Nucleated RBC % 0, PT 12.7, INR 1.0, APTT < 20.0 L, Sodium 141, Potassium 3.9, Chloride 105, Carbon Dioxide 29.0, Anion Gap 7, BUN 36 H, Creatinine 1.39 H, Estim Creat Clear Calc 29.37, Est GFR (MDRD) Af Amer 48 L, Est GFR (MDRD) Non-Af 39 L, BUN/Creatinine Ratio 25.9 H, Glucose 132 H, Lactic Acid 3.8 H*, Calcium 9.4, Total Bilirubin 0.30, AST 26, ALT 33, Alkaline Phosphatase 114, Troponin I High Sens 47, Total Protein 5.9 L, Albumin 2.8 L, Globulin 3.1, Albumin/Globulin Ratio 0.9 07/01/23 21:30: Urine Color Yellow, Urine Clarity Clear, Urine pH 7.0, Ur Specific [place] 1.010, Urine Protein 15 H, Urine Glucose (UA) Normal, Urine Ketones Negative, Urine Occult Blood 25 H, Urine Nitrite Negative, Urine Bilirubin Negative, Urine Urobilinogen Normal, Ur Leukocyte Esterase 25 H, Urine RBC 0 SEEN, Urine WBC 0-5 SEEN, Ur Squamous Epith Cells 0 SEEN, Urine Bacteria 0 SEEN, Urine Mucus 0 SEEN 07/01/23 23:35: Lactic Acid 2.1 H* 07/02/23 05:30: WBC 11.2 H, RBC 2.62 L, Hgb 7.9 L, Hct 26.9 L, MCV 102.7 H, MCH 30.2, MCHC 29.4 L, RDW Std Deviation 51.0 H, RDW Coeff of Eloisa 13.6, Plt Count 117 L, MPV 10.2, Immature Gran % (Auto) 0.400, Neut % (Auto) 94.8 H, Lymph % (Auto) 3.0 L, [place] % (Auto) 1.3, Eos % (Auto) 0.1, Baso % (Auto) 0.4, Absolute Neuts (auto) 10.6 H, Absolute Lymphs (auto) 0.33 L, Nucleated RBC % 0, Platelet Estimate SLT DEC, Macrocytosis RARE, Sodium 145, Potassium 4.4, Chloride 114 H, Carbon Dioxide 25.0, Anion Gap 6, BUN 37 H, Creatinine 1.34 H, Estim Creat Clear Calc 30.47, Est GFR (MDRD) Af Amer 50 L, Est GFR (MDRD) Non-Af 41 L, BUN/Creatinine Ratio 27.6 H, Glucose 113 H, Calcium 7.6 L, Magnesium 2.1, Total Bilirubin 0.20, AST 28, ALT 28, Alkaline Phosphatase 68, Total Protein 4.7 L, Albumin 2.2 L, Globulin 2.5, Albumin/Globulin Ratio 0.9 Micro: Microbiology 07/01/23 22:15 Stool Stool Occult Blood (BRITNI) - Final Occult Blood Positive Radiology Impression Abdomen/Pelvis CT 07/01/23 19:04 IMPRESSION: Findings most compatible with nonspecific enteritis. Likely distal colitis with narrowing of the distal sigmoid. Constipation with fecal impaction through the mid anterior sigmoid encephali dilatation of the colon up to 4.8 cm. Clinical correlation recommended. Unremarkable abdominal viscera. Mild to moderate hiatal hernia. Electronically Signed: Alexandra York MD at 20:27 EDT , Chest X-Ray 07/01/23 19:53 IMPRESSION: Minimal left basilar atelectasis with interstitial changes versus scarring in the right upper lung, stable in the interval. No acute cardiac pulmonary disease. Right-sided chest port as described. Electronically Signed: Alexandra York MD at 20:29 EDT , Charges/Coding Procedures Hospitalists Procedures: [id number] [facility] H[facility]
[2023-07-02] MEDS: 0.9% Normal Saline 1,000 ML 125 ML IV ×3 (08:20→23:44)
[2023-07-02] MEDS: Colestipol 1 GM TABLET PO ×2 (09:53→22:05)
[2023-07-02] MEDS: Montelukast 10 MG Tablet PO (09:53)
[2023-07-02] MEDS: dexAMETHasone 4 MG Tablet PO (09:53)
--- NOTE | 2023-07-02 11:47 | CT_ITS ---
STUDY: CTA ABDOMEN AND PELVIS WITH AND WITHOUT CONTRAST REASON FOR EXAM: Female, 73 years old. GI bleeding -- mesenteric ischemia vs ischemic colitis RADIATION DOSAGE (If Supplied By Facility): CTDIvol = ( 16.88 ) mGy, DLP = ( 608.63 ) mGycm TECHNIQUE: Transaxial images were obtained from the dome of the diaphragm to the symphysis pubis without oral contrast. IV 100mL Isovue-370 was administered. Sagittal and coronal images were reconstructed. 3-D images were reconstructed. Individualized dose optimization techniques were used for this CT. COMPARISON: Comparison is made with prior study dated July 01, 2023. FINDINGS: Stable mild increased linear markings at the lung bases suggestive of a atelectasis and/or mild scarring. The visualized portions of the heart are within normal limits. Normal liver. Normal gallbladder and extrahepatic biliary system. Normal spleen. Normal pancreas. Normal bilateral adrenal glands. Normal right kidney. Normal left kidney. Normal visualized stomach. Normal small intestine. Diffuse circumferential wall thickening of the left hemicolon from the level of the distal transverse colon down to the rectum suggestive of a ischemic colitis. Mild degree of increased markings are seen in the surrounding mesenteric fat. The appendix is visualized and appears normal. There is diffuse atherosclerotic calcification of the abdominal aorta and its major visceral branches including the celiac artery and superior mesenteric artery. Without a demonstrated aneurysm. Normal inferior vena cava. Normal retroperitoneum. A Srivastava catheter is seen within the urinary bladder. The urinary bladder is not adequately distended. There is a mild degree of the bladder wall thickening. Small amount of free fluid is seen in the pelvis. Normal abdominal wall. There are degenerative changes of the visualized lumbar spine. Stable compression fracture of the T11 vertebrae. CT/CTA Abd/Pelvis W/WO Contrast IMPRESSION: Diffuse circumferential wall thickening of the left hemicolon from the distal portion of the transverse colon down to the rectum ischemic colitis should be ruled out. Small amount of free fluid is seen in the cul-de-sac. Electronically Signed: Juan Carlos Laguna MD at 12:59 EDT ,
--- NOTE | 2023-07-02 12:00 | EX.PCM.CON.G ---
HPI Consult Data Date of Consult: 07/02/23 HPI Narrative Reason for Consultation: GI bleed HPI Narrative: JUAN HAWKINS, is a 73 F who presented to the ED with her because of abdominal pain, nausea, vomiting, and diarrhea. She stated her symptoms essentially started today. She had 2 episodes of vomiting that are nonbloody. She still feels nauseated. She took one of her Zofran, but is still experiencing nausea and vomiting. She also states that she had 3-4 episodes of loose stool and diarrhea. She states it is running out of me. It is nonbloody as well. She complains of diffuse abdominal pain as well. Her last chemotherapy was 2 weeks ago, and she is due in 2 days for another round. CT scan of the abdomen pelvis in the ED revealed : findings most compatible with nonspecific enteritis. Likely distal colitis with narrowing of the distal sigmoid. Constipation with fecal impaction through the mid anterior sigmoid encephali dilatation of the colon up to 4.8 cm. Her past medical history is positive for non-squamous cell lung cancer. She had a CTA on 08/21/2022 showed right upper lobe nodule with cavitation. She underwent CT-guided biopsy 10/11/2022. Pathology showed NSCLC, squamous cell type. MRI brain on 10/18/2022 showed no metastatic disease, PET/CT done on 10/24/2022 showed activity in L parotid gland, 2 RUL nodules with one infiltrating the mediastinum. She was seen by thoracic surgery, had mediastinotomy on 12/13/2022, R4, R2,L4 and pre-tracheal nodes were negative. She was diagnosed with Stage IIIB NSCLC. Surgical management was not possible so chemotherapy and radiation was recommended. She completed combined chemotherapy-Taxol/Carboplatin on 01/07/2023- 02/11/23 x 6 cycles. Finished Radiation on 02/15/2023. CT c/a on 03/11/2023 showed R lung mass which is more solid now. 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 PET/CT on 05/21/2023 showed persistent/progressive disease in RUL. Pt presented to [facility] ED on 06/04/23 with pain, CTA chest was negative for PE. She was taking some pain pills given to her by [facility] ED provider on 06/03/23. Believes that was hydrocodone/acetaminophen, she only took 1 pill daily at and pain was modestly controlled. She presented back to [facility] ED with SOB and chest pain on , a second CTA chest was negative for PE, but again demonstrates chronic interstitial and emphysematous changes most severe in the upper lobes and an irregular mass in the right upper lobe measuring 2.9 x 2.4 cm extending to the pleural surface in association with pleural thickening. She is still having a lot of abdominal pain therefore I ordered a CRP which came back at 118. I also ordered stool studies for enteric pathogens and CMV. Along with a CT angiography of the abdomen and pelvis. CTA of the abdomen pelvis revealed: Diffuse circumferential wall thickening of the left hemicolon from the level of the distal transverse colon down to the rectum suggestive of a ischemic colitis. Mild degree of increased markings are seen in the surrounding mesenteric fat. [facility] Medical History Alopecia Anemia Arthritis Asthma Back pain Benign neoplasm of colon Cancer Cancer related pain Cardiology follow-up encounter Chronic constipation Contact with and (suspected) exposure to other viral communicable diseases COPD (chronic obstructive pulmonary disease) COVID-19 Easy bruising Encounter for education Essential hypertension Fatigue Former smoker Gastric reflux Generalized weakness High cholesterol History of echocardiogram History of edema History of irregular heartbeat History of stress test Hyperlipidemia Hypertension Hypokalemia Mild aortic stenosis Nicotine dependence Pneumonia Restless legs Shortness of breath on exertion Wears dentures Wears glasses Home Medications albuterol sulfate 90 mcg/actuation aerosol inhaler 1 puff IH PRN PRN Sob &/Or Wheezing 04/17/19 [History Last Taken Unknown] atorvastatin 10 mg tablet 10 mg PO QHS #90 tabs 04/17/21 [Rx Last Taken Unknown] montelukast 10 mg tablet 10 mg PO DAILY 08/21/22 [History Last Taken Unknown] lisinopril 20 mg tablet 20 mg PO DAILY 12/06/22 [History Last Taken 06/20/23] Hair prostethesis #1 ea 01/17/23 [Rx Last Taken Unknown] budesonide-formoterol HFA 160 mcg-4.5 mcg/actuation aerosol inhaler (Symbicort) 2 puff inhalation BID 03/18/23 [History Last Taken Unknown] gabapentin 300 mg capsule 300 mg PO QHS 03/18/23 [History Last Taken Unknown] colestipol 1 gram tablet 1 g PO BID #60 tabs 04/16/23 [Rx Last Taken Unknown] hydrocodone-acetaminophen 5-325mg 5mg-325mg 1 tab PO Q6H PRN PRN Pain 3 days #10 TABLETS 06/03/23 [Rx Last Taken Unknown] dexamethasone 4 mg tablet 4 mg PO DAILY #20 tabs 06/18/23 [Rx Last Taken Unknown] lidocaine-prilocaine 2.5 %-2.5 % topical cream 1 applic topical ONCE PRN PORT ACCESS 30 days #30 grams 06/19/23 [Rx Last Taken Unknown] ondansetron 8 mg disintegrating tablet 8 mg PO Q8H PRN nausea and vomiting #30 tabs 06/19/23 [Rx Last Taken Unknown] prochlorperazine maleate 10 mg tablet 10 mg PO Q6H PRN nausea and vomiting #30 tabs 06/19/23 [Rx Last Taken Unknown] Allergy/AdvReac Type Severity Reaction Status Date / Time watermelon Allergy Intermediate Hives Verified 07/01/23 18:42 Family History Father Cancer spinal Mother Alzheimer's disease Brother Pacemaker Surgical History History of amputation of finger of right hand History of appendectomy History of breast surgery History of cataract extraction History of cystoscopy History of D&C History of hysterectomy History of toe surgery History of tonsillectomy Social History household members: spouse pets and animals: Yes (dogs) Smoking Status: Former smoker how long ago did patient quit smokin alcohol intake: former substance use type: does not use ROS ROS Narrative 10 systems reviewed with pertinent positives as noted in the HPI above. Physical Exam Const alert and oriented x3 HEENT normocephalic and head/scalp atraumatic Resp normal respiratory effort Cardio regular rate GI soft to palpation; Negative for non-distended Palpation: tender other (Diffusely with rebound); Negative for guarding Extremity Negative for no calf tenderness General Extremity: Negative for edema Neuro CN's II-XII intact bilaterally Psych mental status grossly normal Lab / Micro Data 07/02/23 05:30 07/02/23 05:30 Labs: Laboratory Results - last 24 hr 07/01/23 18:57: WBC 7.8, RBC 3.23 L, Hgb 9.7 L, Hct 32.9 L, MCV 101.9 H, MCH 30.0, MCHC 29.5 L, RDW Std Deviation 50.8 H, RDW Coeff of Eloisa 13.5, Plt Count 179, MPV 10.4, Immature Gran % (Auto) 0.500, Neut % (Auto) 76.0 H, Lymph % (Auto) 20.0, [place] % (Auto) 1.8, Eos % (Auto) 1.4, Baso % (Auto) 0.3, Absolute Neuts (auto) 5.9, Absolute Lymphs (auto) 1.56, Nucleated RBC % 0, PT 12.7, INR 1.0, APTT < 20.0 L, Sodium 141, Potassium 3.9, Chloride 105, Carbon Dioxide 29.0, Anion Gap 7, BUN 36 H, Creatinine 1.39 H, Estim Creat Clear Calc 29.37, Est GFR (MDRD) Af Amer 48 L, Est GFR (MDRD) Non-Af 39 L, BUN/Creatinine Ratio 25.9 H, Glucose 132 H, Lactic Acid 3.8 H*, Calcium 9.4, Total Bilirubin 0.30, AST 26, ALT 33, Alkaline Phosphatase 114, Troponin I High Sens 47, Total Protein 5.9 L, Albumin 2.8 L, Globulin 3.1, Albumin/Globulin Ratio 0.9, Blood Type O POSITIVE, Antibody Screen NEGATIVE, Crossmatch See Detail 07/01/23 21:30: Urine Color Yellow, Urine Clarity Clear, Urine pH 7.0, Ur Specific [place] 1.010, Urine Protein 15 H, Urine Glucose (UA) Normal, Urine Ketones Negative, Urine Occult Blood 25 H, Urine Nitrite Negative, Urine Bilirubin Negative, Urine Urobilinogen Normal, Ur Leukocyte Esterase 25 H, Urine RBC 0 SEEN, Urine WBC 0-5 SEEN, Ur Squamous Epith Cells 0 SEEN, Urine Bacteria 0 SEEN, Urine Mucus 0 SEEN 07/01/23 23:35: Lactic Acid 2.1 H* 07/02/23 05:30: WBC 11.2 H, RBC 2.62 L, Hgb 7.9 L, Hct 26.9 L, MCV 102.7 H, MCH 30.2, MCHC 29.4 L, RDW Std Deviation 51.0 H, RDW Coeff of Eloisa 13.6, Plt Count 117 L, MPV 10.2, Immature Gran % (Auto) 0.400, Neut % (Auto) 94.8 H, Lymph % (Auto) 3.0 L, [place] % (Auto) 1.3, Eos % (Auto) 0.1, Baso % (Auto) 0.4, Absolute Neuts (auto) 10.6 H, Absolute Lymphs (auto) 0.33 L, Nucleated RBC % 0, Platelet Estimate SLT DEC, Macrocytosis RARE, Sodium 145, Potassium 4.4, Chloride 114 H, Carbon Dioxide 25.0, Anion Gap 6, BUN 37 H, Creatinine 1.34 H, Estim Creat Clear Calc 30.47, Est GFR (MDRD) Af Amer 50 L, Est GFR (MDRD) Non-Af 41 L, BUN/Creatinine Ratio 27.6 H, Glucose 113 H, Calcium 7.6 L, Magnesium 2.1, Total Bilirubin 0.20, AST 28, ALT 28, Alkaline Phosphatase 68, Total Protein 4.7 L, Albumin 2.2 L, Globulin 2.5, Albumin/Globulin Ratio 0.9 07/02/23 11:55: ESR 9, Troponin I High Sens 38, C-React Prot Ext Range 118.00 H 07/02/23 13:52: Lactic Acid 1.5 Micro: Microbiology 07/02/23 10:00 Stool C. difficile GDH Antigen & Toxins - Final 07/02/23 10:00 Stool C. difficile DNA Amplification - Final 07/02/23 09:39 Stool Enteric Bacteriology - Final 07/01/23 21:30 Urine, Clean Catch Urine Culture - Preliminary Culture exhibits no growth. 07/01/23 22:15 Stool Stool Occult Blood (BRITNI) - Final Occult Blood Positive Radiology Impression Abdomen/Pelvis CT 07/01/23 19:04 IMPRESSION: Findings most compatible with nonspecific enteritis. Likely distal colitis with narrowing of the distal sigmoid. Constipation with fecal impaction through the mid anterior sigmoid encephali dilatation of the colon up to 4.8 cm. Clinical correlation recommended. Unremarkable abdominal viscera. Mild to moderate hiatal hernia. Electronically Signed: Alexandra York MD at 20:27 EDT , Chest X-Ray 07/01/23 19:53 IMPRESSION: Minimal left basilar atelectasis with interstitial changes versus scarring in the right upper lung, stable in the interval. No acute cardiac pulmonary disease. Right-sided chest port as described. Electronically Signed: Alexandra York MD at 20:29 EDT , Abdomen/Pelvis CTA 07/02/23 11:47 IMPRESSION: Diffuse circumferential wall thickening of the left hemicolon from the distal portion of the transverse colon down to the rectum ischemic colitis should be ruled out. Small amount of free fluid is seen in the cul-de-sac. Electronically Signed: Juan Carlos Laguna MD at 12:59 EDT , Assessment & Plan Assessment/Plan (1) Ischemic bowel disease: (2) Colitis: (3) GIB (gastrointestinal bleeding): QUALIFIERS: GI bleed type/associated pathology: unspecified gastrointestinal hemorrhage type Qualified Code(s): K92.2 - Gastrointestinal hemorrhage, unspecified PLAN: Plan NSCLC lung cancer S/P chemo-radiation therapy. PET/CT on 05/21/2023 reviewed, shows persistent/progressive disease in RUL. She is on cisplatin and Gemzar. She presented with acute onset of abdominal pain associated with nausea vomiting and bloody diarrhea. Currently on Levophed due to hypotension and likely septic shock. Severely elevated CRP and imaging suggest severe ischemic colitis and she is C. difficile positive. She is being evaluated by surgery and is possibly going to have emergent surgery. Recommend vancomycin 250 mg every 6 hour via OG tube and Flagyl 5 mg IV every 8 hours. I send off stool for CMV because she is on chemotherapy. I will continue to follow. Charges/Coding Visit Charges Inpatient E&M: 25063 Init Hosp L3
[2023-07-02 12:14] LABS: Erythrocyte Sedimentation Rate 9 mm/hr (0-30)
[2023-07-02] MEDS: Albuterol 2.5 MG/3 ML VIAL.NEB. INHALATION ×2 (13:03→19:13)
--- NOTE | 2023-07-02 13:29 | EX.PCM.CON.S ---
Assessment & Plan Assessment/Plan (1) Ischemic bowel disease: (2) Lactic acidosis: (3) Nausea, vomiting, and diarrhea: (4) Chemotherapy management, encounter for: PLAN: Plan Reviewed CT abdomen pelvis as well as CTA of the abdomen pelvis personally and with the family. There was a dramatic change of the left colon has been called possible ischemic changes. Discussed with patient and her family that due to the fever as well as the sepsis with need for pressors would recommend exploratory laparotomy, possible bowel resection, possible colostomy. Discussed procedure including risk not limited to bleeding, infection, injury to other organ, hernia and anesthesia. Patient and family had no further questions this time. Patient's hemoglobin is 7.9 Will type and cross for 2 C. difficile pending Continue IV Zosyn Margarita Dale M.D. Pager: [phone] [facility] [address] [place] [address], Outpatient [facility], [address] [place] [id number] Office: [phone] HPI Consult Data Date of Consult: 07/02/23 HPI Narrative HPI Narrative: JUAN HAWKINS, is a 73 F who presented to the ER due to suprapubic abdominal pain. Patient's initial CT abdomen pelvis showed some may be enteritis. Repeat CT a today showed likely ischemic left colon. Patient's lactic acid was initially 3.7 went down to 2.1 however patient continues to be on pressors did have a fever of 100.5 currently 100. Patient is currently on chemotherapy due to squamous cell lung cancer. Last chemo treatment was on Saturday. Patient stated her abdominal pain started 3 to 4 days ago continued to get worse. Patient has had more formed stool and then some liquid stool as well. Patient's C. difficile is currently pending. Patient did have nausea as well as vomiting x1 prior to coming in. Patient is on Zosyn 3.375 g IV every 8 hours since admission, white blood cell count this morning 11.2 with a left shift. [facility] Medical History Alopecia Anemia Arthritis Asthma Back pain Benign neoplasm of colon Cancer Cancer related pain Cardiology follow-up encounter Chronic constipation Contact with and (suspected) exposure to other viral communicable diseases COPD (chronic obstructive pulmonary disease) COVID-19 Easy bruising Encounter for education Essential hypertension Fatigue Former smoker Gastric reflux Generalized weakness High cholesterol History of echocardiogram History of edema History of irregular heartbeat History of stress test Hyperlipidemia Hypertension Hypokalemia Mild aortic stenosis Nicotine dependence Pneumonia Restless legs Shortness of breath on exertion Wears dentures Wears glasses Home Medications albuterol sulfate 90 mcg/actuation aerosol inhaler 1 puff IH PRN PRN Sob &/Or Wheezing 04/17/19 [History Last Taken Unknown] atorvastatin 10 mg tablet 10 mg PO QHS #90 tabs 04/17/21 [Rx Last Taken Unknown] montelukast 10 mg tablet 10 mg PO DAILY 08/21/22 [History Last Taken Unknown] lisinopril 20 mg tablet 20 mg PO DAILY 12/06/22 [History Last Taken 06/20/23] Hair prostethesis #1 ea 01/17/23 [Rx Last Taken Unknown] budesonide-formoterol HFA 160 mcg-4.5 mcg/actuation aerosol inhaler (Symbicort) 2 puff inhalation BID 03/18/23 [History Last Taken Unknown] gabapentin 300 mg capsule 300 mg PO QHS 03/18/23 [History Last Taken Unknown] colestipol 1 gram tablet 1 g PO BID #60 tabs 04/16/23 [Rx Last Taken Unknown] hydrocodone-acetaminophen 5-325mg 5mg-325mg 1 tab PO Q6H PRN PRN Pain 3 days #10 TABLETS 06/03/23 [Rx Last Taken Unknown] dexamethasone 4 mg tablet 4 mg PO DAILY #20 tabs 06/18/23 [Rx Last Taken Unknown] lidocaine-prilocaine 2.5 %-2.5 % topical cream 1 applic topical ONCE PRN PORT ACCESS 30 days #30 grams 06/19/23 [Rx Last Taken Unknown] ondansetron 8 mg disintegrating tablet 8 mg PO Q8H PRN nausea and vomiting #30 tabs 06/19/23 [Rx Last Taken Unknown] prochlorperazine maleate 10 mg tablet 10 mg PO Q6H PRN nausea and vomiting #30 tabs 06/19/23 [Rx Last Taken Unknown] Allergy/AdvReac Type Severity Reaction Status Date / Time watermelon Allergy Intermediate Hives Verified 07/01/23 18:42 Family History Father Cancer spinal Mother Alzheimer's disease Brother Pacemaker Surgical History History of amputation of finger of right hand History of appendectomy History of breast surgery History of cataract extraction History of cystoscopy History of D&C History of hysterectomy History of toe surgery History of tonsillectomy Social History household members: spouse pets and animals: Yes (dogs) Smoking Status: Former smoker how long ago did patient quit smokin alcohol intake: former substance use type: does not use Physical Exam Const alert and oriented x3 HEENT normocephalic and head/scalp atraumatic Resp normal respiratory effort Cardio regular rate GI soft to palpation; Negative for non-distended Palpation: tender other (Diffusely with rebound); Negative for guarding Extremity Negative for no calf tenderness General Extremity: Negative for edema Neuro CN's II-XII intact bilaterally Psych mental status grossly normal Lab / Micro Data 07/02/23 05:30 07/02/23 05:30 Labs: Laboratory Results - last 24 hr 07/01/23 18:57: WBC 7.8, RBC 3.23 L, Hgb 9.7 L, Hct 32.9 L, MCV 101.9 H, MCH 30.0, MCHC 29.5 L, RDW Std Deviation 50.8 H, RDW Coeff of Eloisa 13.5, Plt Count 179, MPV 10.4, Immature Gran % (Auto) 0.500, Neut % (Auto) 76.0 H, Lymph % (Auto) 20.0, [place] % (Auto) 1.8, Eos % (Auto) 1.4, Baso % (Auto) 0.3, Absolute Neuts (auto) 5.9, Absolute Lymphs (auto) 1.56, Nucleated RBC % 0, PT 12.7, INR 1.0, APTT < 20.0 L, Sodium 141, Potassium 3.9, Chloride 105, Carbon Dioxide 29.0, Anion Gap 7, BUN 36 H, Creatinine 1.39 H, Estim Creat Clear Calc 29.37, Est GFR (MDRD) Af Amer 48 L, Est GFR (MDRD) Non-Af 39 L, BUN/Creatinine Ratio 25.9 H, Glucose 132 H, Lactic Acid 3.8 H*, Calcium 9.4, Total Bilirubin 0.30, AST 26, ALT 33, Alkaline Phosphatase 114, Troponin I High Sens 47, Total Protein 5.9 L, Albumin 2.8 L, Globulin 3.1, Albumin/Globulin Ratio 0.9, Blood Type O POSITIVE, Antibody Screen NEGATIVE 07/01/23 21:30: Urine Color Yellow, Urine Clarity Clear, Urine pH 7.0, Ur Specific [place] 1.010, Urine Protein 15 H, Urine Glucose (UA) Normal, Urine Ketones Negative, Urine Occult Blood 25 H, Urine Nitrite Negative, Urine Bilirubin Negative, Urine Urobilinogen Normal, Ur Leukocyte Esterase 25 H, Urine RBC 0 SEEN, Urine WBC 0-5 SEEN, Ur Squamous Epith Cells 0 SEEN, Urine Bacteria 0 SEEN, Urine Mucus 0 SEEN 07/01/23 23:35: Lactic Acid 2.1 H* 07/02/23 05:30: WBC 11.2 H, RBC 2.62 L, Hgb 7.9 L, Hct 26.9 L, MCV 102.7 H, MCH 30.2, MCHC 29.4 L, RDW Std Deviation 51.0 H, RDW Coeff of Eloisa 13.6, Plt Count 117 L, MPV 10.2, Immature Gran % (Auto) 0.400, Neut % (Auto) 94.8 H, Lymph % (Auto) 3.0 L, [place] % (Auto) 1.3, Eos % (Auto) 0.1, Baso % (Auto) 0.4, Absolute Neuts (auto) 10.6 H, Absolute Lymphs (auto) 0.33 L, Nucleated RBC % 0, Platelet Estimate SLT DEC, Macrocytosis RARE, Sodium 145, Potassium 4.4, Chloride 114 H, Carbon Dioxide 25.0, Anion Gap 6, BUN 37 H, Creatinine 1.34 H, Estim Creat Clear Calc 30.47, Est GFR (MDRD) Af Amer 50 L, Est GFR (MDRD) Non-Af 41 L, BUN/Creatinine Ratio 27.6 H, Glucose 113 H, Calcium 7.6 L, Magnesium 2.1, Total Bilirubin 0.20, AST 28, ALT 28, Alkaline Phosphatase 68, Total Protein 4.7 L, Albumin 2.2 L, Globulin 2.5, Albumin/Globulin Ratio 0.9 09/05/23 11:55: ESR 9, C-React Prot Ext Range 118.00 H Micro: Microbiology 07/01/23 21:30 Urine, Clean Catch Urine Culture - Preliminary Culture exhibits no growth. 07/01/23 22:15 Stool Stool Occult Blood (BRITNI) - Final Occult Blood Positive Radiology Impression Abdomen/Pelvis CT 07/01/23 19:04 IMPRESSION: Findings most compatible with nonspecific enteritis. Likely distal colitis with narrowing of the distal sigmoid. Constipation with fecal impaction through the mid anterior sigmoid encephali dilatation of the colon up to 4.8 cm. Clinical correlation recommended. Unremarkable abdominal viscera. Mild to moderate hiatal hernia. Electronically Signed: Alexandra York MD at 20:27 EDT , Chest X-Ray 07/01/23 19:53 IMPRESSION: Minimal left basilar atelectasis with interstitial changes versus scarring in the right upper lung, stable in the interval. No acute cardiac pulmonary disease. Right-sided chest port as described. Electronically Signed: Alexandra York MD at 20:29 EDT , Abdomen/Pelvis CTA 07/02/23 11:47 IMPRESSION: Diffuse circumferential wall thickening of the left hemicolon from the distal portion of the transverse colon down to the rectum ischemic colitis should be ruled out. Small amount of free fluid is seen in the cul-de-sac. Electronically Signed: Juan Carlos Laguna MD at 12:59 EDT ,
--- NOTE | 2023-07-02 14:00 | NURSING ---
Patient left unit to OR, report given to FLOORING HELPER. All questions and concerns answered.
--- NOTE | 2023-07-02 14:31 | CASEMGMT ---
JARED CM to pt room for assessment, pt currently being taken to surgery. Will complete assessment at later time.
[2023-07-02 14:40] LABS: Lactic Acid 1.5 mmol/L (0.4-1.9)
[2023-07-02 15:09] LABS: Troponin-I HS 38 pg/mL (3.0-54.0)
--- NOTE | 2023-07-02 16:14 | PN.HOSP_ITS ---
Subjective Subjective Admitted to the ICU for pressors. Still complaining of abdominal pain Objective Data Objective Data Vital Signs: Vital Signs Temp Pulse Resp BP Pulse Ox O2 Del Method O2 Flow Rate 99.9 F H 88 16 157/54 H 95 Nasal Cannula 2 07/02/23 13:41 07/02/23 14:56 07/02/23 14:56 07/02/23 14:56 07/02/23 14:56 07/02/23 14:56 07/02/23 14:56 FiO2 2 07/01/23 21:34 Oxygen Flow Rate (L/min) 2 Oxygen Delivery Method Nasal Cannula Weight: 140 lb 14.006 oz Body Mass Index (BMI) 24.9 Intake & Output: Intake and Output for Last 24 Hours 07/01/23 07/02/23 07/03/23 03:59 03:59 03:59 Intake Total 3268.88 / 3268.88 1855.07 / 1855.07 Output Total 750 / 925 775 / 775 Balance 2518.88 / 2343.88 1080.07 / 1080.07 Lab / Micro Data 07/02/23 05:30 07/02/23 05:30 Labs: Laboratory Results - last 24 hr 07/01/23 18:57: WBC 7.8, RBC 3.23 L, Hgb 9.7 L, Hct 32.9 L, MCV 101.9 H, MCH 30.0, MCHC 29.5 L, RDW Std Deviation 50.8 H, RDW Coeff of Eloisa 13.5, Plt Count 179, MPV 10.4, Immature Gran % (Auto) 0.500, Neut % (Auto) 76.0 H, Lymph % (Auto) 20.0, [place] % (Auto) 1.8, Eos % (Auto) 1.4, Baso % (Auto) 0.3, Absolute Neuts (auto) 5.9, Absolute Lymphs (auto) 1.56, Nucleated RBC % 0, PT 12.7, INR 1.0, APTT < 20.0 L, Sodium 141, Potassium 3.9, Chloride 105, Carbon Dioxide 29.0, Anion Gap 7, BUN 36 H, Creatinine 1.39 H, Estim Creat Clear Calc 29.37, Est GFR (MDRD) Af Amer 48 L, Est GFR (MDRD) Non-Af 39 L, BUN/Creatinine Ratio 25.9 H, Glucose 132 H, Lactic Acid 3.8 H*, Calcium 9.4, Total Bilirubin 0.30, AST 26, ALT 33, Alkaline Phosphatase 114, Troponin I High Sens 47, Total Protein 5.9 L, Albumin 2.8 L, Globulin 3.1, Albumin/Globulin Ratio 0.9, Blood Type O POSITIVE, Antibody Screen NEGATIVE, Crossmatch See Detail 07/01/23 21:30: Urine Color Yellow, Urine Clarity Clear, Urine pH 7.0, Ur Specific [place] 1.010, Urine Protein 15 H, Urine Glucose (UA) Normal, Urine Ketones Negative, Urine Occult Blood 25 H, Urine Nitrite Negative, Urine Bilirubin Negative, Urine Urobilinogen Normal, Ur Leukocyte Esterase 25 H, Urine RBC 0 SEEN, Urine WBC 0-5 SEEN, Ur Squamous Epith Cells 0 SEEN, Urine Bacteria 0 SEEN, Urine Mucus 0 SEEN 07/01/23 23:35: Lactic Acid 2.1 H* 07/02/23 05:30: WBC 11.2 H, RBC 2.62 L, Hgb 7.9 L, Hct 26.9 L, MCV 102.7 H, MCH 30.2, MCHC 29.4 L, RDW Std Deviation 51.0 H, RDW Coeff of Eloisa 13.6, Plt Count 117 L, MPV 10.2, Immature Gran % (Auto) 0.400, Neut % (Auto) 94.8 H, Lymph % (Auto) 3.0 L, [place] % (Auto) 1.3, Eos % (Auto) 0.1, Baso % (Auto) 0.4, Absolute Neuts (auto) 10.6 H, Absolute Lymphs (auto) 0.33 L, Nucleated RBC % 0, Platelet Estimate SLT DEC, Macrocytosis RARE, Sodium 145, Potassium 4.4, Chloride 114 H, Carbon Dioxide 25.0, Anion Gap 6, BUN 37 H, Creatinine 1.34 H, Estim Creat Clear Calc 30.47, Est GFR (MDRD) Af Amer 50 L, Est GFR (MDRD) Non-Af 41 L, BUN/Creatinine Ratio 27.6 H, Glucose 113 H, Calcium 7.6 L, Magnesium 2.1, Total Bilirubin 0.20, AST 28, ALT 28, Alkaline Phosphatase 68, Total Protein 4.7 L, Albumin 2.2 L, Globulin 2.5, Albumin/Globulin Ratio 0.9 07/02/23 11:55: ESR 9, Troponin I High Sens 38, C-React Prot Ext Range 118.00 H 07/02/23 13:52: Lactic Acid 1.5 Micro: Microbiology 07/02/23 10:00 Stool C. difficile GDH Antigen & Toxins - Final 07/02/23 10:00 Stool C. difficile DNA Amplification - Final 07/02/23 09:39 Stool Enteric Bacteriology - Final 07/01/23 21:30 Urine, Clean Catch Urine Culture - Preliminary Culture exhibits no growth. 07/01/23 22:15 Stool Stool Occult Blood (BRITNI) - Final Occult Blood Positive Radiography Diagnostic Testing: Radiology Impression Abdomen/Pelvis CT 07/01/23 19:04 IMPRESSION: Findings most compatible with nonspecific enteritis. Likely distal colitis with narrowing of the distal sigmoid. Constipation with fecal impaction through the mid anterior sigmoid encephali dilatation of the colon up to 4.8 cm. Clinical correlation recommended. Unremarkable abdominal viscera. Mild to moderate hiatal hernia. Electronically Signed: Alexandra York MD at 20:27 EDT , Chest X-Ray 07/01/23 19:53 IMPRESSION: Minimal left basilar atelectasis with interstitial changes versus scarring in the right upper lung, stable in the interval. No acute cardiac pulmonary disease. Right-sided chest port as described. Electronically Signed: Alexandra York MD at 20:29 EDT , Abdomen/Pelvis CTA 07/02/23 11:47 IMPRESSION: Diffuse circumferential wall thickening of the left hemicolon from the distal portion of the transverse colon down to the rectum ischemic colitis should be ruled out. Small amount of free fluid is seen in the cul-de-sac. Electronically Signed: Juan Carlos Laguna MD at 12:59 EDT , Physical Exam Narrative General: Alert, Oriented x3, Cooperative, no apparent distress HEENT: Atraumatic, PERRLA, EOMI, Normocephalic Oral: Moist Mucosa Neck: Supple, No JVD Lungs: Diminished, Normal air movement, No rhonchi, No wheeze, No rales Cardiovascular: Regular rate, Regular Rhythm, Normal S1, Normal S2, No murmurs Abdomen: Soft, mild tender, Non-Distended, No Hepato-splenomegaly Extremities: No edema, Capillary Refill Less than 3 Seconds Skin: No rashes, No breakdown Musculoskeletal: No Tenderness to Palpation of Joints or Extremities Neurological: Moves all remedies, Sensory exam intact to light touch and pain Psych/Mental Status: Flat Assessment & Plan Assessment/Plan (1) Ischemic bowel disease: (2) Colitis: (3) Acute kidney injury: PLAN: Plan 1. Shock from ischemic colitis with possible C. difficile contributing/CHARLY ? Still having some abdominal pain but doing a little bit better with the IV fluids and pressors ? Appreciate gastroenterology's assistance as well as general surgery's assistance ? CTA of the abdomen shows left-sided colitis possible ischemic ? C. difficile test came back positive for everything other than toxin pro duction however given her cancer status and how ill she is would recommend continuing with p.o. vancomycin at this time ? Continue with intensive care 2. 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 She is not a surgical candidate and she has received both chemotherapy as well as radiation, PET scan in April did demonstrate progressive disease and therefore was started on a second course of chemotherapy ? This does provide a significant comorbidity 3. HTN/HLD ? We will hold her blood pressure medication secondary to her shock ? She was continued on her Lipitor however this will be held and she will likely be n.p.o. after surgery 4. COPD ? Not in exacerbation ? Can continue with inhalers DVT: SCDs Charges/Coding Visit Charges Inpatient E&M: 36793 Subs Hosp L2
[2023-07-02] MEDS: Bupivacaine Mpf 0.5% 30 ML VIAL (17:07)
--- NOTE | 2023-07-02 17:35 | PCM.OPRPT ---
Report of Operation Date of Procedure: 07/02/23 Pre-Operative Diagnosis: ischemic left colon, presumed C. difficile Post-Operative Diagnosis: ischemic left colon, presumed C. difficile Surgery/Procedure Performed:: exlap, left hemiectomy, transverse colostomy Surgeon: Margarita Dale diesel locomotive firer/fireman: Vinay Maher Type of Anesthesia: General/Supplemental Anesthesiologist: Dominic Caballero Special Medications: Zosyn 3.375 g IV x1 Specimen's removed: Left colon?Suture [place] ri[place] distal Drains: 15 [place] UNIQUE Estimated Blood Loss (mL): 100 cc Fluids Replaced: 2 units packed red blood cells, 700 crystalloid Description of Procedure: Patient was brought to the operating placed supine on the operating table. A timeout was completed verifying correct patient, procedure, site, positioning, special, prior began procedure. General anesthesia was induced. Abdomen was prepped draped in usual sterile fashion with chlorhexidine. Midline incision was made with a 10 blade scalpel deepened to the fascia with electrocautery. The fascia was elevated and incised under direct visualization. Electrocautery is used to divide the fascia. Extra-large wound protector was placed. The right colon appeared to have an usual spotty black appearance on the inside/nodular but no no obvious ischemic changes - a small enterotomy was made to check the viability of the bowel at the tinea. The bowel was viable and this was just small flecks of stool. Enterotomy was closed with running 3-0 Vicryl in [place] sutures of 3-0 silk. Proximal descending colon did have an area of ischemia about 2 cm in size. The left colon was mobilized along the white line of [place] with electrocautery. The splenic flexure was carefully mobilized from the spleen. There was an inadvertent capsular tear which was controlled with combination Surgicel, Floseal, fibular and pressure. Once hemostasis was assured 75 REKHA was used to divide the distal sigmoid as well as the left transverse colon and the LigaSure impact was used to divide the mesocolon. Left mid abdomen ostomy was planned in disc of tissue was removed. [place]'s were used to divide subcutaneous tissue, fascia was divided with electrocautery and the rectus muscles were split and peritoneum was divided under direct visualization with electrocautery. The ostomy site easily fit 3 fingers. The transverse colon was brought out of the ostomy. This was sutured to the fascia with 3-0 silk sutures x2. 15 [place] left lower quadrant UNIQUE was placed and sutured with 3-0 nylon. Midline incision was closed with running 0 Prolene suture and skin was closed with skin shaunna. Next the transverse colon staple line was cut which did reveal viable tissue with bleeding. The colostomy was matured using 3-0 silk x4 and the rest 3-0 Vicryl in Marce fashion. The ostomy appliance was placed on as well as Telfa and OpSite over the midline incision. Patient was on levo during the case 1 to 3 mcg. Patient was extubated. Patient was taken back to the ICU and critical condition. Complications Splenic capsule tear?inadvertent
--- NOTE | 2023-07-02 18:36 | NURSING ---
Patient returned to unit from OR with 2nd bag of PRBC infusing. PRBC finished at 1800. See OR paper charting for transfusion record. Vitals stable- see PACU charting.
--- NOTE | 2023-07-02 18:45 | NURSING ---
Patient returned from OR with levophed off- BP stable.
[2023-07-02 18:54] LABS: Absolute Lymphocyte Count 0.23 X10^3/uL (0.83-4.51); Absolute Neutrophil Count 7.3 X10^3/uL (2.0-7.7); Basophil# 0.01 X10^3/uL; Basophil% 0.1 % (0-1); Hematocrit 33.1 % (37-47); Hemoglobin 10.2 g/dL (12.0-15.0); Lymphocyte # 0.23 X10^3/ul (0.83-4.51); Mean Corp Hgb Conc 30.8 g/dL (32-36); Mean Corpuscular Hgb 30.4 pg (27.0-32.0); Mean Corpuscular Volume 98.5 fL (81-99); Mean Platelet Vol. 10.5 fl (6.2-12.0); Monocyte# 0.18 X10^3/uL; Monocyte% 2.3 % (0-10); NRBC Flagged by Analyzer 0 % (0-5); Neutrophil # 7.31 X10^3/uL (2.7-7.7); Neutrophil % 94.2 % (47-70); POSITIVE COUNT YES; POSITIVE DIFFERENTIAL YES; POSITIVE MORPHOLOGY YES; Platelet Count 80 K/mm3 (150-450); RBC Distribution Width CV 14.6 % (11.6-14.6); RBC Distribution Width SD 52.4 fl (35.1-43.9); Red Blood Count 3.36 M/mm3 (4.2-5.4); White Blood Count 7.8 K/mm3 (4.4-11.0)
[2023-07-02 18:55] LABS: Differential Indicated SCAN CRITERIA MET
[2023-07-02] MEDS: Vancomycin 125 MG/5 ML Susp PO.SYRINGE PO (18:59)
[2023-07-02 19:27] LABS: Anisocytosis 1+; Macrocytosis 1+; Platelet Estimate MOD DEC (ADEQ); Red Cell Morphology N CHROM NORMAL (NORM C&C)
[2023-07-02] MEDS: 0.9% Saline Lock 10 ML Syringe IV (20:35)
[2023-07-02] MEDS: Gabapentin 300 MG Capsule PO (20:35)
[2023-07-02] MEDS: fentaNYL 100 MCG/2 ML Ampul IV ×2 (20:38→23:45)
[2023-07-02] MEDS: Atorvastatin Calcium 10 MG Tablet PO (22:04)
[2023-07-03] VITALS (49 sets, daily range): BP systolic 100–153; BP diastolic 43–88; PULSE 78–92; RESP 10–22; TEMP 37.2–37.9; O2SAT 93–100; BMI 25.7
[2023-07-03] MEDS: Vancomycin 125 MG/5 ML Susp PO.SYRINGE PO ×2 (01:27→05:43)
[2023-07-03] MEDS: fentaNYL 100 MCG/2 ML Ampul IV ×7 (01:31→21:17)
[2023-07-03 06:14] LABS: Absolute Lymphocyte Count 0.39 X10^3/uL (0.83-4.51); Absolute Neutrophil Count 7.6 X10^3/uL (2.0-7.7); Basophil# 0.01 X10^3/uL; Basophil% 0.1 % (0-1); Eosinophil# 0.01 X10^3/uL; Eosinophils% 0.1 % (0-5); Hematocrit 27.8 % (37-47); Lymphocyte # 0.39 X10^3/ul (0.83-4.51); Lymphocyte % 4.8 % (19-41); Mean Corp Hgb Conc 32.4 g/dL (32-36); Mean Corpuscular Hgb 31.1 pg (27.0-32.0); Mean Corpuscular Volume 96.2 fL (81-99); Mean Platelet Vol. 10.9 fl (6.2-12.0); Monocyte# 0.13 X10^3/uL; Monocyte% 1.6 % (0-10); NRBC Flagged by Analyzer 0 % (0-5); Neutrophil # 7.63 X10^3/uL (2.7-7.7); Neutrophil % 92.9 % (47-70); POSITIVE COUNT YES; POSITIVE DIFFERENTIAL YES; Platelet Count 80 K/mm3 (150-450); RBC Distribution Width CV 14.7 % (11.6-14.6); RBC Distribution Width SD 51.8 fl (35.1-43.9); Red Blood Count 2.89 M/mm3 (4.2-5.4); White Blood Count 8.2 K/mm3 (4.4-11.0)
--- NOTE | 2023-07-03 06:14 | PN.CC_ITS ---
Assessment & Plan Assessment/Plan (1) Acute kidney injury: (2) Colitis: (3) Enteritis: PLAN: Plan RECOMMENDATIONS: 1. Continue Levophed to maintain mean arterial pressure at or above 65 mmHg. 2. Continue antimicrobials, including rectal vancomycin. 3. Continue to monitor H&H and transfuse if hemoglobin drops below 7 g/dL. 4. Continue PPI therapy as ordered. 5. Continue pain control regimen as ordered. 6. Dietary advancement per general surgery. IMPRESSIONS: 1. Multifactorial shock The patient presented to the hospital with abdominal pain, nausea, vomiting and some diarrhea along with findings of ischemic lightest noted on CT imaging of the abdomen. The patient's hypotension is likely multifactorial in etiology wi th hypovolemia, sepsis related to C. difficile colitis and ischemic colitis contributing. Plan to continue current supportive measures including antimicrobials and vasopressor support to maintain a mean arterial pressure at or above 65 mmHg. 2. Ischemic colitis now POD #1 status post left hemicolectomy and transverse colostomy Continue routine postoperative care per general surgery recommendations. 3. Non-small cell carcinoma of lung The patient is status post chemoradiation therapy with pet imaging in April demonstrating progressive disease. Therefore, the patient was just recently started on second round chemotherapy per oncology. 4. Anemia/thrombocytopenia Stool for occult blood was noted to be positive, most likely secondary to ischemic colitis. The patient was transfused 2 units of packed red blood cells intraoperatively. Blood counts are stable this morning. Continue to monitor daily and transfuse if hemoglobin drops below 7 g/dL. 4. Acute kidney injury Resolved. Most likely prerenal in etiology in the setting of #1. Continue to monitor urine output for now. No current indication for renal replacement therapy. 5. History of COPD/aortic sclerosis/hypertension/hyperlipidemia Complicates care, management, recovery and prognosis. Continue as needed bronchodilator therapy. TIME: 32 minutes of critical care time, independent of procedures, was spent addressing the patient's multifactorial shock, anemia, thrombocytopenia, acute kidney injury, non-small cell carcinoma of the lung, review of all data and collaboration with care team. Subjective Subjective The patient was seen and examined at the bedside this morning. Events from the last 24 hours have been reviewed. The patient is currently afebrile and maintaining appropriate oxygen saturations on 2 L/min via nasal cannula. The patient is currently documented to be overall net +3 L for the hospitalization. The patient underwent successful exploratory laparotomy with left hemicolectomy and transverse colostomy yesterday secondary to ischemic colitis. The patient reports ongoing abdominal pain this morning. The patient remains on low-dose Levophed to maintain hemodynamic stability. Objective Data Objective Data The patient's most recent lab work, culture data and imaging studies have all been personally reviewed. C. difficile antigen was positive on July 01. Vital Signs: Vital Signs Temp Pulse Resp BP Pulse Ox O2 Del Method O2 Flow Rate 99.8 F H 82 10 L 115/58 L 97 Nasal Cannula 2 07/03/23 06:00 07/03/23 06:00 07/03/23 06:00 07/03/23 06:00 07/03/23 06:00 07/03/23 06:00 07/03/23 06:00 FiO2 2 07/01/23 21:34 Oxygen Flow Rate (L/min) 2 Oxygen Delivery Method Nasal Cannula Weight: 145 lb 1.027 oz Body Mass Index (BMI) 25.7 Intake & Output: Intake and Output for Last 24 Hours 07/01/23 07/02/23 07/03/23 23:59 23:59 23:59 Intake Total 3107.52 / 3229.87 4158.02 / 4159.90 92.14 / 92.14 Output Total 3480 / 3480 830 / 830 Balance 3107.52 / 2829.87 678.02 / 679.90 -737.86 / -737.86 Lab / Micro Data Attestation: I reviewed the patient's lab results. 07/03/23 05:55 07/03/23 05:55 Labs: Laboratory Results - last 24 hr 07/01/23 18:57: Blood Type O POSITIVE, Antibody Screen NEGATIVE, Crossmatch See Detail 07/02/23 05:30: WBC 11.2 H, RBC 2.62 L, Hgb 7.9 L, Hct 26.9 L, MCV 102.7 H, MCH 30.2, MCHC 29.4 L, RDW Std Deviation 51.0 H, RDW Coeff of Eloisa 13.6, Plt Count 117 L, MPV 10.2, Immature Gran % (Auto) 0.400, Neut % (Auto) 94.8 H, Lymph % (Auto) 3.0 L, [place] % (Auto) 1.3, Eos % (Auto) 0.1, Baso % (Auto) 0.4, Absolute Neuts (auto) 10.6 H, Absolute Lymphs (auto) 0.33 L, Nucleated RBC % 0, Platelet Estimate SLT DEC, Macrocytosis RARE, Sodium 145, Potassium 4.4, Chloride 114 H, Carbon Dioxide 25.0, Anion Gap 6, BUN 37 H, Creatinine 1.34 H, Estim Creat Clear Calc 30.47, Est GFR (MDRD) Af Amer 50 L, Est GFR (MDRD) Non-Af 41 L, BUN/Creatinine Ratio 27.6 H, Glucose 113 H, Calcium 7.6 L, Magnesium 2.1, Total Bilirubin 0.20, AST 28, ALT 28, Alkaline Phosphatase 68, Total Protein 4.7 L, Albumin 2.2 L, Globulin 2.5, Albumin/Globulin Ratio 0.9 07/02/23 11:55: ESR 9, Troponin I High Sens 38, C-React Prot Ext Range 118.00 H 07/02/23 13:52: Lactic Acid 1.5 07/02/23 18:40: WBC 7.8, RBC 3.36 L, Hgb 10.2 L, Hct 33.1 L, MCV 98.5, MCH 30.4, MCHC 30.8 L, RDW Std Deviation 52.4 H, RDW Coeff of Eloisa 14.6, Plt Count 80 L, MPV 10.5, Immature Gran % (Auto) 0.400, Neut % (Auto) 94.2 H, Lymph % (Auto) 3.0 L, [place] % (Auto) 2.3, Eos % (Auto) 0.0, Baso % (Auto) 0.1, Absolute Neuts (auto) 7.3, Absolute Lymphs (auto) 0.23 L, Nucleated RBC % 0, Differential Comment SEE COMMENT, Platelet Estimate MOD DEC, RBC Morphology N CHROM, Anisocytosis 1+, Macrocytosis 1+ Micro: Microbiology 07/02/23 10:00 Stool C. difficile GDH Antigen & Toxins - Final 07/02/23 10:00 Stool C. difficile DNA Amplification - Final 07/02/23 09:39 Stool Enteric Bacteriology - Final 07/01/23 21:30 Urine, Clean Catch Urine Culture - Preliminary Culture exhibits no growth. 07/01/23 22:15 Stool Stool Occult Blood (BRITNI) - Final Occult Blood Positive Radiography Diagnostic Testing: Radiology Impression Abdomen/Pelvis CTA 07/02/23 11:47 IMPRESSION: Diffuse circumferential wall thickening of the left hemicolon from the distal portion of the transverse colon down to the rectum ischemic colitis should be ruled out. Small amount of free fluid is seen in the cul-de-sac. Electronically Signed: Juan Carlos Laguna MD at 12:59 EDT , Physical Exam Const alert and no apparent distress General Appearance: cooperative HEENT normocephalic and head/scalp atraumatic Eyes PERRL, EOMs intact bilaterally and conjunctivae normal Neck supple General: trachea midline Chest inspection of chest normal Resp normal respiratory effort Auscultation: Negative for rales, rhonchi or wheezes Cardio regular rate and regular rhythm GI soft to palpation GI Narrative: UNIQUE drain in place. Inspection: ostomy present Extremity no clubbing, cyanosis or edema Skin no rashes or lesions noted Neuro moves all extremities and no focal motor deficits Psych Mood & Affect: flat affect Charges/Coding Procedures Hospitalists Procedures: 67276 Critial Care 1st Hr
[2023-07-03 06:15] LABS: Anion Gap 4 (5-15); BUN 27 mg/dL (7-18); Calcium,Total 6.9 mg/dL (8.5-10.1); Chloride 115 mmol/L (98-107); Creatinine, Serum 0.93 mg/dL (0.55-1.02); EST Glomerular Filtration Rate 63 mL/min (>60); Est Glom Filt Rate - Afr Amer 76 mL/min (>60); Glucose 105 mg/dL (74-106); Magnesium 1.6 mg/dL (1.6-2.6); Phosphorus 3.6 mg/dL (2.5-4.9); Sodium Level 144 mmol/L (136-145)
[2023-07-03 06:43] LABS: Anisocytosis 1+; Differential Indicated SCAN CRITERIA MET; Platelet Estimate MOD DEC (ADEQ)
[2023-07-03] MEDS: Albuterol 2.5 MG/3 ML VIAL.NEB. INHALATION ×2 (07:28→13:00)
--- NOTE | 2023-07-03 07:39 | PN.SURG_ITS ---
Subjective Subjective Patient is currently on levo at 2 mcg, pain controlled with fentanyl, ostomy edematous?bloody discharge, UNIQUE sanguinous Objective Data Objective Data Vital Signs: Vital Signs Temp Pulse Resp BP Pulse Ox O2 Del Method O2 Flow Rate 99.8 F H 79 18 104/55 L 93 Nasal Cannula 2 07/03/23 07:00 07/03/23 07:29 07/03/23 07:29 07/03/23 07:00 07/03/23 07:29 07/03/23 07:29 07/03/23 07:29 FiO2 2 07/01/23 21:34 Oxygen Flow Rate (L/min) 2 Oxygen Delivery Method Nasal Cannula Weight: 145 lb 1.027 oz Body Mass Index (BMI) 25.7 Intake & Output: Intake and Output for Last 24 Hours 07/01/23 07/02/23 07/03/23 23:59 23:59 23:59 Intake Total 3107.52 / 3229.87 4158.02 / 4159.90 95.94 / 95.94 Output Total 3480 / 3480 830 / 830 Balance 3107.52 / 2829.87 678.02 / 679.90 -734.06 / -734.06 Lab / Micro Data 07/03/23 05:55 07/03/23 05:55 Labs: Laboratory Results - last 24 hr 07/01/23 18:57: Blood Type O POSITIVE, Antibody Screen NEGATIVE, Crossmatch See Detail 07/02/23 11:55: ESR 9, Troponin I High Sens 38, C-React Prot Ext Range 118.00 H 07/02/23 13:52: Lactic Acid 1.5 07/02/23 18:40: WBC 7.8, RBC 3.36 L, Hgb 10.2 L, Hct 33.1 L, MCV 98.5, MCH 30.4, MCHC 30.8 L, RDW Std Deviation 52.4 H, RDW Coeff of Eloisa 14.6, Plt Count 80 L, MPV 10.5, Immature Gran % (Auto) 0.400, Neut % (Auto) 94.2 H, Lymph % (Auto) 3.0 L, [place] % (Auto) 2.3, Eos % (Auto) 0.0, Baso % (Auto) 0.1, Absolute Neuts (auto) 7.3, Absolute Lymphs (auto) 0.23 L, Nucleated RBC % 0, Differential Comment SEE COMMENT, Platelet Estimate MOD DEC, RBC Morphology N CHROM, Anisocytosis 1+, Macrocytosis 1+ 07/03/23 05:55: WBC 8.2, RBC 2.89 L, Hgb 9.0 L, Hct 27.8 L, MCV 96.2, MCH 31.1, MCHC 32.4 D, RDW Std Deviation 51.8 H, RDW Coeff of [place]oisa 14.7 H, Plt Count 80 L, MPV 10.9, Immature Gran % (Auto) 0.500, Neut % (Auto) 92.9 H, Lymph % (Auto) 4.8 L, [place] % (Auto) 1.6, Eos % (Auto) 0.1, Baso % (Auto) 0.1, Absolute Neuts (auto) 7.6, Absolute Lymphs (auto) 0.39 L, Nucleated RBC % 0, Platelet Estimate MOD DEC, Anisocytosis 1+, Sodium 144, Potassium 4.0, Chloride 115 H, Carbon Dioxide 25.0, Anion Gap 4 L, BUN 27 H, Creatinine 0.93, Estim Creat Clear Calc 43.90, Est GFR (MDRD) Af Amer 76, Est GFR (MDRD) Non-Af 63, BUN/Creatinine Ratio 29.0 H , Glucose 105, Calcium 6.9 L, Phosphorus 3.6, Magnesium 1.6 Micro: Microbiology 07/02/23 10:00 Stool C. difficile GDH Antigen & Toxins - Final 07/02/23 10:00 Stool C. difficile DNA Amplification - Final 07/02/23 09:39 Stool Enteric Bacteriology - Final 07/01/23 21:30 Urine, Clean Catch Urine Culture - Preliminary Culture exhibits no growth. 07/01/23 22:15 Stool Stool Occult Blood (BRITNI) - Final Occult Blood Positive Radiography Diagnostic Testing: Radiology Impression Abdomen/Pelvis CTA 07/02/23 11:47 IMPRESSION: Diffuse circumferential wall thickening of the left hemicolon from the distal portion of the transverse colon down to the rectum ischemic colitis should be ruled out. Small amount of free fluid is seen in the cul-de-sac. Electronically Signed: Juan Carlos Laguna MD at 12:59 EDT , Physical Exam Const oriented x3 Resp normal respiratory effort Cardio regular rate GI soft to palpation GI Narrative: Incision clean dry intact with shaunna, ostomy edematous?bloody drainage in ostomy bag, UNIQUE sanguinous Assessment & Plan Assessment/Plan (1) Status post [place] procedure: (2) Ischemic bowel disease: (3) Chemotherapy management, encounter for: PLAN: Plan POD#1 exlap, left hemicolectomy, hartmanns-(traverse) Continue n.p.o. except for meds/IV fluids until bowel function. Levo per ICU we will give a 500 cc bolus. Hemoglobin 9 status post 2 units packed red blood cells previously 7.9. We will recheck hemoglobin at noon.--Continue to hold anticoagulation Continue fentanyl for pain control Margarita Dale M.D. Pager: [phone] [facility] [address] [place] [address], [facility] [address] [place] [address] Office: [phone]
[2023-07-03] MEDS: 0.9% Normal Saline 1,000 ML 125 ML IV ×2 (08:23→18:21)
--- NOTE | 2023-07-03 08:31 | PN.HOSP_ITS ---
Subjective Subjective Doing well, no issues overnight. She has had a proven on her Levophed requirement she is down to 2 mcg pain is controlled. Objective Data Objective Data Vital Signs: Vital Signs Temp Pulse Resp BP Pulse Ox O2 Del Method O2 Flow Rate 99.8 F H 79 18 104/55 L 93 Nasal Cannula 2 07/03/23 07:00 07/03/23 07:29 07/03/23 07:29 07/03/23 07:00 07/03/23 07:29 07/03/23 07:29 07/03/23 07:29 FiO2 2 07/01/23 21:34 Oxygen Flow Rate (L/min) 2 Oxygen Delivery Method Nasal Cannula Weight: 145 lb 1.027 oz Body Mass Index (BMI) 25.7 Intake & Output: Intake and Output for Last 24 Hours 07/02/23 07/03/23 07/04/23 03:59 03:59 03:59 Intake Total 3268.88 / 3268.88 4076.20 / 4077.60 1016.40 / 1016.40 Output Total 750 / 925 3360 / 3360 375 / 375 Balance 2518.88 / 2343.88 716.20 / 717.60 641.40 / 641.40 Lab / Micro Data 07/03/23 05:55 07/03/23 05:55 Labs: Laboratory Results - last 24 hr 07/01/23 18:57: Blood Type O POSITIVE, Antibody Screen NEGATIVE, Crossmatch See Detail 07/02/23 11:55: ESR 9, Troponin I High Sens 38, C-React Prot Ext Range 118.00 H 07/02/23 13:52: Lactic Acid 1.5 07/02/23 18:40: WBC 7.8, RBC 3.36 L, Hgb 10.2 L, Hct 33.1 L, MCV 98.5, MCH 30.4, MCHC 30.8 L, RDW Std Deviation 52.4 H, RDW Coeff of Eloisa 14.6, Plt Count 80 L, MPV 10.5, Immature Gran % (Auto) 0.400, Neut % (Auto) 94.2 H, Lymph % (Auto) 3.0 L, [place] % (Auto) 2.3, Eos % (Auto) 0.0, Baso % (Auto) 0.1, Absolute Neuts (auto) 7.3, Absolute Lymphs (auto) 0.23 L, Nucleated RBC % 0, Differential Comment SEE COMMENT, Platelet Estimate MOD DEC, RBC Morphology N CHROM, Anisocytosis 1+, Macrocytosis 1+ 07/03/23 05:55: WBC 8.2, RBC 2.89 L, Hgb 9.0 L, Hct 27.8 L, MCV 96.2, MCH 31.1, MCHC 32.4 D, RDW Std Deviation 51.8 H, RDW Coeff of Eloisa 14.7 H, Plt Count 80 L, MPV 10.9, Immature Gran % (Auto) 0.500, Neut % (Auto) 92.9 H, Lymph % (Auto) 4.8 L, [place] % (Auto) 1.6, Eos % (Auto) 0.1, Baso % (Auto) 0.1, Absolute Neuts (auto) 7.6, Absolute Lymphs (auto) 0.39 L, Nucleated RBC % 0, Platelet Estimate MOD DEC, Anisocytosis 1+, Sodium 144, Potassium 4.0, Chloride 115 H, Carbon Dioxide 25.0, Anion Gap 4 L, BUN 27 H, Creatinine 0.93, Estim Creat Clear Calc 43.90, Est GFR (MDRD) Af Amer 76, Est GFR (MDRD) Non-Af 63, BUN/Creatinine Ratio 29.0 H , Glucose 105, Calcium 6.9 L, Phosphorus 3.6, Magnesium 1.6 Micro: Microbiology 07/02/23 10:00 Stool C. difficile GDH Antigen & Toxins - Final 07/02/23 10:00 Stool C. difficile DNA Amplification - Final 07/02/23 09:39 Stool Enteric Bacteriology - Final 07/01/23 21:30 Urine, Clean Catch Urine Culture - Preliminary Culture exhibits no growth. 07/01/23 22:15 Stool Stool Occult Blood (BRITNI) - Final Occult Blood Positive Radiography Diagnostic Testing: Radiology Impression Abdomen/Pelvis CTA 07/02/23 11:47 IMPRESSION: Diffuse circumferential wall thickening of the left hemicolon from the distal portion of the transverse colon down to the rectum ischemic colitis should be ruled out. Small amount of free fluid is seen in the cul-de-sac. Electronically Signed: Juan Carlos Laguna MD at 12:59 EDT , Physical Exam Narrative General: Alert, Oriented x3, Cooperative, no apparent distress HEENT: Atraumatic, PERRLA, EOMI, Normocephalic Oral: Moist Mucosa Neck: Supple, No JVD Lungs: Diminished, Normal air movement, No rhonchi, No wheeze, No rales Cardiovascular: Regular rate, Regular Rhythm, Normal S1, Normal S2, No murmurs Abdomen: Soft, mild tender, Non-Distended, No Hepato-splenomegaly, ostomy in place Extremities: No edema, Capillary Refill Less than 3 Seconds Skin: No rashes, No breakdown Musculoskeletal: No Tenderness to Palpation of Joints or Extremities Neurological: Moves all remedies, Sensory exam intact to light touch and pain Psych/Mental Status: Flat Assessment & Plan Assessment/Plan (1) Ischemic bowel disease: (2) Colitis: (3) Acute kidney injury: PLAN: Plan 1. Shock from ischemic colitis with possible C. difficile contributing status post ex lap with colostomy on 07/02/2023/CHARLY ? Still having some abdominal pain but doing a little bit better with the IV fluids and pressors ? Appreciate gastroenterology's assistance as well as general surgery's assistance ? CTA of the abdomen shows left-sided colitis possible ischemic ? C. difficile test came back positive for everything other than toxin productio n however given her cancer status and how ill she is would recommend continuing with p.o. vancomycin at this time ? Continue with intensive care, wean Levophed as able 2. 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 She is not a surgical candidate and she has received both chemotherapy as well as radiation, PET scan in April did demonstrate progressive disease and therefore was started on a second course of chemotherapy ? This does provide a significant comorbidity 3. HTN/HLD ? We will hold her blood pressure medication secondary to her shock ? She was continued on her Lipitor 4. COPD ? Not in exacerbation ? Can continue with inhalers DVT: SCDs Charges/Coding Visit Charges Inpatient E&M: 79854 Subs Hosp L2
[2023-07-03] MEDS: Colestipol 1 GM TABLET PO ×2 (10:03→21:37)
[2023-07-03] MEDS: dexAMETHasone 4 MG Tablet PO (10:04)
[2023-07-03] MEDS: Montelukast 10 MG Tablet PO (10:04)
--- NOTE | 2023-07-03 10:35 | CASEMGMT ---
Addendum entered by Ashlee Zamora 07/03/23 12:59: Pt is active with [facility], confirmed via email. Original Note: JARED BURRELL Assessment: Face to Face with pt for initial transition planning/care coordination assessment. RN ASHANTI introduced self and role at [facility], pt voices understanding and consents to assessment. Pt is A/O x4 and answers all questions appropriately at this time. Pt lying in bed in no distress with at bedside. Care providers, pharmacy, and demographics verified/updated. Admitting Dx: abd pain with nausea and vomiting PCP:Charisse Specialists:Praradha, onc; Friend, GI; [place], OR Preferred Pharmacy: [facility] Insurance: [facility] Dual, [facility] Prescription Benefit: yes LNOK: Benji Lezama, Living Arrangements: Pt lives in a ground level apt with no steps to enter. Pt reports she was I in ADL's prior to hospitalization. Transportation: Pt drives self and denies concerns with transportation. DME/HHC/SNF: Pt has a nebulizer at home as well as a FWW. She does not use AD for ambulation. Pt denies hx of HHC or SNF stays. Pt states no concerns with going home at time of dc. Discussed having HHC d/t new ostomy, pt declined. Explained the benefits of service to patient and that it is a s/t service. Pt then was agreeable and as well. Will plan for SN and follow need for any therapy. PT eval prior to surgery with no therapy recommended. Pt states no further concerns/needs. CM to follow. Advised pt to ask CM if any further question/concerns/needs arise, voices understanding. Pt Goal:Home with HHC Plan: Home with HHC pending course of hospitalization
--- NOTE | 2023-07-03 11:02 | CASEMGMT ---
Discharge Planning A list of home health providers including quality and resource use data and consistent with the patient?s preferred geographic region, medical needs, and insurance network was created in [employer] Guide. This list was provided to the RN ASHANTI. Afua Brown, Discharge Planning Asst.
[2023-07-03 12:34] LABS: Hematocrit 27.7 % (37-47); Hemoglobin 8.4 g/dL (12.0-15.0)
[2023-07-03] MEDS: Vancomycin HCl 500 MG, Sodium Chloride Irrig Solution 90 ML RC ×2 (14:05→18:21)
--- NOTE | 2023-07-03 16:22 | EX.PCM.PN.GI ---
Subjective Subjective Patient is status post exlap, left hemiectomy, transverse colostomy. Objective Data Objective Data Vital Signs: Vital Signs Temp Pulse Resp BP Pulse Ox O2 Del Method O2 Flow Rate 99.8 F H 86 14 128/74 H 97 Nasal Cannula 2 07/03/23 16:00 07/03/23 16:00 07/03/23 16:00 07/03/23 16:00 07/03/23 16:00 07/03/23 16:00 07/03/23 16:00 FiO2 2 07/01/23 21:34 Oxygen Flow Rate (L/min) 2 Oxygen Delivery Method Nasal Cannula Weight: 145 lb 1.027 oz Body Mass Index (BMI) 25.7 Intake & Output: Intake and Output for Last 24 Hours 07/01/23 07/02/23 07/03/23 23:59 23:59 23:59 Intake Total 3107.52 / 3229.87 4158.02 / 4159.90 2684.18 / 2684.18 Output Total 3480 / 3480 1280 / 1280 Balance 3107.52 / 2829.87 678.02 / 679.90 1404.18 / 1404.18 Lab / Micro Data 07/03/23 12:15 07/03/23 05:55 Labs: Laboratory Results - last 24 hr 07/01/23 18:57: Crossmatch See Detail 07/01/23 18:57: Crossmatch See Detail 07/02/23 18:40: WBC 7.8, RBC 3.36 L, Hgb 10.2 L, Hct 33.1 L, MCV 98.5, MCH 30.4, MCHC 30.8 L, RDW Std Deviation 52.4 H, RDW Coeff of Eloisa 14.6, Plt Count 80 L, MPV 10.5, Immature Gran % (Auto) 0.400, Neut % (Auto) 94.2 H, Lymph % (Auto) 3.0 L, [place] % (Auto) 2.3, Eos % (Auto) 0.0, Baso % (Auto) 0.1, Absolute Neuts (auto) 7.3, Absolute Lymphs (auto) 0.23 L, Nucleated RBC % 0, Differential Comment SEE COMMENT, Platelet Estimate MOD DEC, RBC Morphology N CHROM, Anisocytosis 1+, Macrocytosis 1+ 07/03/23 05:55: WBC 8.2, RBC 2.89 L, Hgb 9.0 L, Hct 27.8 L, MCV 96.2, MCH 31.1, MCHC 32.4 D, RDW Std Deviation 51.8 H, RDW Coeff of Eloisa 14.7 H, Plt Count 80 L, MPV 10.9, Immature Gran % (Auto) 0.500, Neut % (Auto) 92.9 H, Lymph % (Auto) 4.8 L, [place] % (Auto) 1.6, Eos % (Auto) 0.1, Baso % (Auto) 0.1, Absolute Neuts (auto) 7.6, Absolute Lymphs (auto) 0.39 L, Nucleated RBC % 0, Platelet Estimate MOD DEC, Anisocytosis 1+, Sodium 144, Potassium 4.0, Chloride 115 H, Carbon Dioxide 25.0, Anion Gap 4 L, BUN 27 H, Creatinine 0.93, Estim Creat Clear Calc 43.90, Est GFR (MDRD) Af Amer 76, Est GFR (MDRD) Non-Af 63, BUN/Creatinine Ratio 29.0 H, Glucose 105, Calcium 6.9 L, Phosphorus 3.6, Magnesium 1.6 07/03/23 12:15: Hgb 8.4 L, Hct 27.7 L Micro: Microbiology 07/02/23 10:00 Stool Stool Lactoferrin - Final 07/02/23 10:00 Stool C. difficile GDH Antigen & Toxins - Final 07/02/23 10:00 Stool C. difficile DNA Amplification - Final 07/02/23 09:39 Stool Enteric Bacteriology - Final 07/01/23 21:30 Urine, Clean Catch Urine Culture - Preliminary Culture exhibits no growth. 07/01/23 22:15 Stool Stool Occult Blood (BRITNI) - Final Occult Blood Positive Physical Exam Narrative General: Alert, Oriented x3, Cooperative, no apparent distress HEENT: Atraumatic, PERRLA, EOMI, Normocephalic Oral: Moist Mucosa Neck: Supple, No JVD Lungs: Diminished, Normal air movement, No rhonchi, No wheeze, No rales Cardiovascular: Regular rate, Regular Rhythm, Normal S1, Normal S2, No murmurs Abdomen: Soft, mild tender, Non-Distended, No Hepato-splenomegaly, ostomy in place Extremities: No edema, Capillary Refill Less than 3 Seconds Skin: No rashes, No breakdown Musculoskeletal: No Tenderness to Palpation of Joints or Extremities Neurological: Moves all remedies, Sensory exam intact to light touch and pain Psych/Mental Status: Flat Assessment & Plan Assessment/Plan (1) Ischemic bowel disease: (2) Colitis: (3) GIB (gastrointestinal bleeding): QUALIFIERS: GI bleed type/associated pathology: unspecified gastrointestinal hemorrhage type Qualified Code(s): K92.2 - Gastrointestinal hemorrhage, unspecified PLAN: Plan NSCLC lung cancer S/P chemo-radiation therapy. PET/CT on 05/21/2023 reviewed, shows persistent/progressive disease in RUL. She is on cisplatin and Gemzar. She presented with acute onset of abdominal pain associated with nausea vomiting and bloody diarrhea. Currently still on Levophed due to hypotension and likely septic shock. Severely elevated CRP and imaging suggest severe ischemic colitis and she is C. difficile positive. She is being evaluated by surgery and is possibly going to have emergent surgery. Recommend vancomycin 250 mg every 6 hour via OG tube and Flagyl 5 mg IV every 8 hours. It is okay to give Vanco enemas as per surgery. I send off stool for CMV because she is on chemotherapy. I will continue to follow. Guarded prognosis Charges/Coding Visit Charges Inpatient E&M: 93236 Subs Hosp L3
[2023-07-03] MEDS: Gabapentin 300 MG Capsule PO (21:29)
[2023-07-03] MEDS: Atorvastatin Calcium 10 MG Tablet PO (21:37)
[2023-07-03 21:40] LABS: Hematocrit 30.5 % (37-47); Hemoglobin 9.4 g/dL (12.0-15.0)
[2023-07-04] VITALS (26 sets, daily range): BP systolic 134–184; BP diastolic 68–96; PULSE 66–91; RESP 10–21; TEMP 36.6–37.2; O2SAT 75–99; BMI 27.4
[2023-07-04] MEDS: fentaNYL 100 MCG/2 ML Ampul IV ×3 (00:17→04:43)
[2023-07-04] MEDS: Vancomycin HCl 500 MG, Sodium Chloride Irrig Solution 90 ML RC ×4 (00:17→18:10)
[2023-07-04] MEDS: 0.9% Saline Lock 10 ML Syringe IV ×3 (02:32→16:56)
[2023-07-04] MEDS: 0.9% Normal Saline 1,000 ML 125 ML IV ×3 (02:32→19:40)
--- NOTE | 2023-07-04 07:17 | PCM.PN.INT ---
Assessment & Plan Assessment/Plan (1) Acute kidney injury: (2) Colitis: (3) Enteritis: PLAN: Plan RECOMMENDATIONS: 1. Continue antimicrobials, including rectal vancomycin. 2. Continue to monitor H&H and transfuse if hemoglobin drops below 7 g/dL. 3. Continue PPI therapy as ordered. 4. Continue pain control regimen as ordered. 5. Dietary advancement per general surgery. 6. The patient is medically stable for transfer out of the intensive care unit. 7. We will sign off from a critical care perspective. Please call with any additional questions. IMPRESSIONS: 1. Multifactorial shock Resolved. The patient presented to the hospital with abdominal pain, nausea, vomiting and some diarrhea along with findings of ischemic lightest noted on CT imaging of the abdomen. The patient's hypotension was likely multifactorial in etiology with hypovolemia, sepsis related to C. difficile colitis and ischemic colitis contributing. Although the patient did initially require vasopressor support, she has been successfully weaned from Levophed and remains hemodynamically stable. Plan to continue current supportive measures including antimicrobials. 2. Ischemic colitis now POD #2 status post left hemicolectomy and transverse colostomy Continue routine postoperative care per general surgery recommendations. 3. Non-small cell carcinoma of lung The patient is status post chemoradiation therapy with pet imaging in April demonstrating progressive disease. Therefore, the patient was just recently started on second round chemotherapy per oncology. 4. Anemia/thrombocytopenia Stool for occult blood was noted to be positive, most likely secondary to ischemic colitis. The patient was transfused 2 units of packed red blood cells intraoperatively. Blood counts remain stable. Continue to monitor daily and transfuse if hemoglobin drops below 7 g/dL. 4. Acute kidney injury Resolved. Most likely prerenal in etiology in the setting of #1. Continue to monitor urine output for now. No current indication for renal replacement therapy. 5. History of COPD/aortic sclerosis/hypertension/hyperlipidemia Complicates care, management, recovery and prognosis. Continue as needed bronchodilator therapy. This note was generated with [employer] dictation software. It may contain incorrect words, spelling, and punctuation that were not noted in checking the note before signing. Subjective Subjective The patient was seen and examined at the bedside this morning. Events from the last 24 hours have been reviewed. The patient is currently afebrile, hemodynamically stable and maintaining appropriate oxygen saturations on 2 L/min via nasal cannula. The patient does continue to report ongoing abdominal pain. She was medicated with fentanyl 4 times overnight for the aforementioned. The patient is currently documented to be overall net +6.2 L for the hospitalization. The patient was weaned off of Levophed completely yesterday. Objective Data Objective Data The patient's most recent lab work, culture data and imaging studies have all been personally reviewed. C. difficile antigen was positive on July 01. Vital Signs: Vital Signs Temp Pulse Resp BP Pulse Ox O2 Del Method O2 Flow Rate 99 F 75 17 134/68 H 98 Mechanical Ventilator 2 07/04/23 07:00 07/04/23 07:00 07/04/23 07:00 07/04/23 07:00 07/04/23 07:00 07/04/23 07:00 07/04/23 05:46 FiO2 28 07/04/23 07:00 Oxygen Flow Rate (L/min) 2 Oxygen Delivery Method Mechanical Ventilator Weight: 154 lb 15.759 oz Body Mass Index (BMI) 27.4 Intake & Output: Intake and Output for Last 24 Hours 07/02/23 07/03/23 07/04/23 23:59 23:59 23:59 Intake Total 4158.02 / 4159.90 3294.18 / 3294.18 1551.67 / 1551.67 Output Total 3480 / 3480 2150 / 2210 220 / 220 Balance 678.02 / 679.90 1144.18 / 1084.18 1331.67 / 1331.67 Lab / Micro Data Attestation: I reviewed the patient's lab results. 07/04/23 04:45 07/04/23 06:30 Labs: Laboratory Results - last 24 hr 07/01/23 18:57: Crossmatch See Detail 07/03/23 12:15: Hgb 8.4 L, Hct 27.7 L 07/03/23 21:30: Hgb 9.4 L, Hct 30.5 L Micro: Microbiology 07/02/23 10:00 Stool Stool Lactoferrin - Final 07/02/23 10:00 Stool C. difficile GDH Antigen & Toxins - Final 07/02/23 10:00 Stool C. difficile DNA Amplification - Final 07/02/23 09:39 Stool Enteric Bacteriology - Final 07/01/23 21:30 Urine, Clean Catch Urine Culture - Preliminary Culture exhibits no growth. 07/01/23 22:15 Stool Stool Occult Blood (BRITNI) - Final Occult Blood Positive Radiography Diagnostic Testing: Radiology Impression Abdomen/Pelvis CTA 07/02/23 11:47 IMPRESSION: Diffuse circumferential wall thickening of the left hemicolon from the distal portion of the transverse colon down to the rectum ischemic colitis should be ruled out. Small amount of free fluid is seen in the cul-de-sac. Electronically Signed: Juan Carlos Laguna MD at 12:59 EDT , Physical Exam Const alert and no apparent distress General Appearance: cooperative HEENT normocephalic and head/scalp atraumatic Eyes PERRL, EOMs intact bilaterally and conjunctivae normal Neck supple General: trachea midline Chest inspection of chest normal Resp normal respiratory effort Auscultation: Negative for rales, rhonchi or wheezes Cardio regular rate and regular rhythm GI soft to palpation GI Narrative: UNIQUE drain in place. Inspection: ostomy present Extremity no clubbing, cyanosis or edema Skin no rashes or lesions noted Neuro moves all extremities and no focal motor deficits Psych Mood & Affect: flat affect Charges/Coding Visit Charges Inpatient E&M: 08495 [facility] Hosp L3
[2023-07-04 08:00] LABS: Absolute Lymphocyte Count 0.35 X10^3/uL (0.83-4.51); Absolute Neutrophil Count 7.9 X10^3/uL (2.0-7.7); Basophil# 0.01 X10^3/uL; Basophil% 0.1 % (0-1); Hemoglobin 9.3 g/dL (12.0-15.0); Lymphocyte # 0.35 X10^3/ul (0.83-4.51); Lymphocyte % 4.1 % (19-41); Mean Corpuscular Hgb 30.4 pg (27.0-32.0); Mean Platelet Vol. 11.3 fl (6.2-12.0); Monocyte# 0.15 X10^3/uL; Monocyte% 1.8 % (0-10); NRBC Flagged by Analyzer 0 % (0-5); Neutrophil # 7.91 X10^3/uL (2.7-7.7); Neutrophil % 93.2 % (47-70); POSITIVE COUNT YES; POSITIVE DIFFERENTIAL YES; Platelet Count 62 K/mm3 (150-450); RBC Distribution Width CV 14.8 % (11.6-14.6); RBC Distribution Width SD 53.1 fl (35.1-43.9); Red Blood Count 3.06 M/mm3 (4.2-5.4); White Blood Count 8.5 K/mm3 (4.4-11.0)
[2023-07-04 08:24] LABS: Anion Gap 5 (5-15); BUN 25 mg/dL (7-18); BUN/Creat Ratio 33.3 RATIO (10-20); Calcium,Total 7.4 mg/dL (8.5-10.1); Chloride 116 mmol/L (98-107); Creatinine, Serum 0.75 mg/dL (0.55-1.02); EST Glomerular Filtration Rate 80 mL/min (>60); Est Glom Filt Rate - Afr Amer 97 mL/min (>60); Estimated Creatinine Clearance 40.83 ml/min; Glucose 75 mg/dL (74-106); Sodium Level 143 mmol/L (136-145)
--- NOTE | 2023-07-04 08:25 | PCM.PN.HOSP ---
Subjective Subjective Doing well, no issues overnight. Continue with p.o. and rectal vancomycin Objective Data Objective Data Vital Signs: Vital Signs Temp Pulse Resp BP Pulse Ox O2 Del Method O2 Flow Rate 99.0 F 76 17 159/72 H 98 Nasal Cannula 2 07/04/23 08:00 07/04/23 08:00 07/04/23 08:00 07/04/23 08:00 07/04/23 08:00 07/04/23 08:13 07/04/23 08:13 FiO2 28 07/04/23 06:00 Oxygen Flow Rate (L/min) 2 Oxygen Delivery Method Nasal Cannula Weight: 154 lb 15.759 oz Body Mass Index (BMI) 27.4 Intake & Output: Intake and Output for Last 24 Hours 07/03/23 07/04/23 07/05/23 03:59 03:59 03:59 Intake Total 4076.20 / 4077.60 4289.64 / 4289.64 476.67 / 476.67 Output Total 3360 / 3360 1640 / 1690 445 / 445 Balance 716.20 / 717.60 2649.64 / 2599.64 31.67 / 31.67 Lab / Micro Data 07/03/23 21:30 07/04/23 06:30 Labs: Laboratory Results - last 24 hr 07/01/23 18:57: Crossmatch See Detail 07/03/23 12:15: Hgb 8.4 L, Hct 27.7 L 07/03/23 21:30: Hgb 9.4 L, Hct 30.5 L 07/04/23 06:30: Sodium 143, Potassium 4.0, Chloride 116 H, Carbon Dioxide 22.0, Anion Gap 5, BUN 25 H, Creatinine 0.75, Estim Creat Clear Calc 40.83, Est GFR (MDRD) Af Amer 97, Est GFR (MDRD) Non-Af 80, BUN/Creatinine Ratio 33.3 H, Glucose 75, Calcium 7.4 L Micro: Microbiology 07/01/23 21:30 Urine, Clean Catch Urine Culture - Final Culture exhibits no growth. 07/02/23 10:00 Stool Stool Lactoferrin - Final 07/02/23 10:00 Stool C. difficile GDH Antigen & Toxins - Final 07/02/23 10:00 Stool C. difficile DNA Amplification - Final 07/02/23 09:39 Stool Enteric Bacteriology - Final 07/01/23 22:15 Stool Stool Occult Blood (BRITNI) - Final Occult Blood Positive Physical Exam Narrative General: Alert, Oriented x3, Cooperative, no apparent distress HEENT: Atraumatic, PERRLA, EOMI, Normocephalic Oral: Moist Mucosa Neck: Supple, No JVD Lungs: Diminished, Normal air movement, No rhonchi, No wheeze, No rales Cardiovascular: Regular rate, Regular Rhythm, Normal S1, Normal S2, No murmurs Abdomen: Soft, mild tender, Non-Distended, No Hepato-splenomegaly, ostomy in place, UNIQUE in place Extremities: No edema, Capillary Refill Less than 3 Seconds Skin: No rashes, No breakdown Musculoskeletal: No Tenderness to Palpation of Joints or Extremities Neurological: Moves all extremities, Sensory exam intact to light touch and pain Psych/Mental Status: Flat Assessment & Plan Assessment/Plan (1) Ischemic bowel disease: (2) Colitis: (3) Acute kidney injury: PLAN: Plan 1. Shock from ischemic colitis with possible C. difficile contributing status post ex lap with colostomy on 07/02/2023/CHARLY ? Still having some abdominal pain but doing a little bit better with the IV fluids and pressors ? Appreciate gastroenterology's assistance as well as general surgery's assistance ? CTA of the abdomen shows left-sided colitis possible ischemic ? C. difficile test came back positive for everything other than toxin production however given her cancer status and how ill she is would recommend continuing with p.o. and rectal vancomycin ?Off of Levophed, will transfer out of the unit today 2. 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 She is not a surgical candidate and she has received both chemotherapy as well as radiation, PET scan in April did demonstrate progressive disease and therefore was started on a second course of chemotherapy ? This does provide a significant comorbidity 3. HTN/HLD ? We will hold her blood pressure medication secondary to her shock ? She was continued on her Lipitor 4. COPD ? Not in exacerbation ? Can continue with inhalers DVT: SCDs Charges/Coding Visit Charges Inpatient E&M: 92503 Subs Hosp L2
[2023-07-04 08:29] LABS: Differential Indicated SCAN CRITERIA MET
[2023-07-04] MEDS: dexAMETHasone 4 MG Tablet PO (08:35)
[2023-07-04] MEDS: Montelukast 10 MG Tablet PO (08:35)
[2023-07-04] MEDS: Colestipol 1 GM TABLET PO ×2 (08:35→22:03)
[2023-07-04 08:49] LABS: Differential Comment SCANNED
--- NOTE | 2023-07-04 09:10 | PCM.PN.SRG ---
Subjective Subjective Patient is still been off levo after the 1 unit of packed red blood cells yesterday. Labs currently pending, patient planes of pain at the incision with movement. Objective Data Objective Data Vital Signs: Vital Signs Temp Pulse Resp BP Pulse Ox O2 Del Method O2 Flow Rate 99.0 F 76 17 159/72 H 98 Nasal Cannula 2 07/04/23 08:00 07/04/23 08:00 07/04/23 08:00 07/04/23 08:00 07/04/23 08:00 07/04/23 08:13 07/04/23 08:13 FiO2 28 07/04/23 06:00 Oxygen Flow Rate (L/min) 2 Oxygen Delivery Method Nasal Cannula Weight: 154 lb 15.759 oz Body Mass Index (BMI) 27.4 Intake & Output: Intake and Output for Last 24 Hours 07/02/23 07/03/23 07/04/23 23:59 23:59 23:59 Intake Total 4158.02 / 4159.90 3294.18 / 3294.18 1551.67 / 1551.67 Output Total 3480 / 3480 2150 / 2210 565 / 565 Balance 678.02 / 679.90 1144.18 / 1084.18 986.67 / 986.67 Lab / Micro Data 07/04/23 04:45 07/04/23 06:30 Labs: Laboratory Results - last 24 hr 07/01/23 18:57: Crossmatch See Detail 07/03/23 12:15: Hgb 8.4 L, Hct 27.7 L 07/03/23 21:30: Hgb 9.4 L, Hct 30.5 L 07/04/23 04:45: WBC 8.5, RBC 3.06 L, Hgb 9.3 L, Hct 30.0 L, MCV 98.0, MCH 30.4, MCHC 31.0 L, RDW Std Deviation 53.1 H, RDW Coeff of Eloisa 14.8 H, Plt Count 62 L, MPV 11.3, Immature Gran % (Auto) 0.800, Neut % (Auto) 93.2 H, Lymph % (Auto) 4.1 L, [place] % (Auto) 1.8, Eos % (Auto) 0.0, Baso % (Auto) 0.1, Absolute Neuts (auto) 7.9 H, Absolute Lymphs (auto) 0.35 L, Nucleated RBC % 0, Differential Comment SCANNED 07/04/23 06:30: Sodium 143, Potassium 4.0, Chloride 116 H, Carbon Dioxide 22.0, Anion Gap 5, BUN 25 H, Creatinine 0.75, Estim Creat Clear Calc 40.83, Est GFR (MDRD) Af Amer 97, Est GFR (MDRD) Non-Af 80, BUN/Creatinine Ratio 33.3 H, Glucose 75, Calcium 7.4 L Micro: Microbiology 07/01/23 21:30 Urine, Clean Catch Urine Culture - Final Culture exhibits no growth. 07/02/23 10:00 Stool Stool Lactoferrin - Final 07/02/23 10:00 Stool C. difficile GDH Antigen & Toxins - Final 07/02/23 10:00 Stool C. difficile DNA Amplification - Final 07/02/23 09:39 Stool Enteric Bacteriology - Final 07/01/23 22:15 Stool Stool Occult Blood (BRITNI) - Final Occult Blood Positive Physical Exam Const oriented x3 Resp normal respiratory effort Cardio regular rate GI soft to palpation GI Narrative: Incision clean dry intact with shaunna, ostomy edematous?bloody drainage in ostomy bag, UNIQUE serous Assessment & Plan Assessment/Plan (1) Status post Eleno procedure: (2) Ischemic bowel disease: (3) Chemotherapy management, encounter for: PLAN: Plan POD#2 exlap, left hemicolectomy, hartmanns-(traverse) Continue n.p.o. except for sips/meds/IV fluids until bowel function. Hemoglobin 9.3 this morning from 9.4 yesterday after the 1 unit packed red blood cells. Patient's had a total of 3 units packed red blood cells. Thrombocytopenia platelets down to 62 likely due to patient's recent chemo. We will try morphine and oxy for pain control as her blood pressure is improved and she is off the levo. Margarita Dale M.D. Pager: [phone] [facility] [address] [place] [address], Outpatient Pavilion, [address] [place] [address] Office: [phone]
[2023-07-04] MEDS: Acetaminophen 325 MG Tablet 650 MG PO ×3 (09:40→22:03)
[2023-07-04] MEDS: oxyCODONE 5 MG Tablet PO ×3 (09:40→22:03)
--- NOTE | 2023-07-04 10:00 | WOUNDNOTE ---
Was asked to see patient for new colostomy. patient is POD#2. stoma is beefy red and moist. slightly edematous. there was a small amount of serosanguineous drainage noted in the appliance. no flatus noted. stoma measures approx 1 3/4 and is well budded. peristomal skin is intact. cleansed skin with warm water. pat dry. applied a new flat 2 piece Ruslan appliance with a paste ring. pt observed appliance change. pt does not feel her will be able to help. did agree to home health care at discharge to continue ostomy education at home. pt denies further questions or concerns. will continue ostomy teaching while inpatient.
--- NOTE | 2023-07-04 11:03 | WOUNDNOTE ---
stoma photo: left upper abdomen
[2023-07-04] MEDS: Albuterol 2.5 MG/3 ML VIAL.NEB. INHALATION (12:46)
--- NOTE | 2023-07-04 15:25 | CASEMGMT ---
JARED BURRELL into pt room, pt with and visitors present. Provided pt with a C list created by leonardo moody. Pt would like to review and JARED BURRELL to check back tomorrow. She would like to speak with her dtr regarding this. JARED BURRELL to check back.
[2023-07-04] MEDS: Morphine 2 MG/ML Syringe IV (16:56)
[2023-07-04] MEDS: Atorvastatin Calcium 10 MG Tablet PO (22:02)
[2023-07-04] MEDS: Gabapentin 300 MG Capsule PO (22:04)
[2023-07-05] VITALS (27 sets, daily range): BP systolic 135–190; BP diastolic 66–97; PULSE 64–93; RESP 12–21; TEMP 36.4–37; O2SAT 89–99; BMI 28.0
[2023-07-05] MEDS: Vancomycin HCl 500 MG, Sodium Chloride Irrig Solution 90 ML RC ×5 (00:11→23:08)
[2023-07-05] MEDS: Morphine 2 MG/ML Syringe IV ×2 (01:29→23:07)
[2023-07-05] MEDS: hydrALAZINE 20 MG/ML Vial 10 MG IV (01:30)
[2023-07-05] MEDS: 0.9% Normal Saline 1,000 ML 125 ML IV ×3 (03:30→20:52)
[2023-07-05 04:45] LABS: Absolute Lymphocyte Count 0.43 X10^3/uL (0.83-4.51); Absolute Neutrophil Count 6.1 X10^3/uL (2.0-7.7); Basophil# 0.01 X10^3/uL; Basophil% 0.1 % (0-1); Hematocrit 32.1 % (37-47); Hemoglobin 9.9 g/dL (12.0-15.0); Lymphocyte # 0.43 X10^3/ul (0.83-4.51); Lymphocyte % 6.3 % (19-41); Mean Corp Hgb Conc 30.8 g/dL (32-36); Mean Corpuscular Hgb 29.7 pg (27.0-32.0); Mean Corpuscular Volume 96.4 fL (81-99); Mean Platelet Vol. 10.5 fl (6.2-12.0); Monocyte# 0.18 X10^3/uL; Monocyte% 2.6 % (0-10); NRBC Flagged by Analyzer 0.3 % (0-5); Neutrophil # 6.14 X10^3/uL (2.7-7.7); POSITIVE COUNT YES; POSITIVE DIFFERENTIAL YES; Platelet Count 63 K/mm3 (150-450); RBC Distribution Width CV 14.3 % (11.6-14.6); RBC Distribution Width SD 50.8 fl (35.1-43.9); Red Blood Count 3.33 M/mm3 (4.2-5.4); White Blood Count 6.8 K/mm3 (4.4-11.0)
[2023-07-05 04:48] LABS: Differential Indicated SCAN CRITERIA MET
[2023-07-05 04:56] LABS: Anion Gap 4 (5-15); BUN 26 mg/dL (7-18); BUN/Creat Ratio 42.1 RATIO (10-20); Chloride 118 mmol/L (98-107); Creatinine, Serum 0.62 mg/dL (0.55-1.02); EST Glomerular Filtration Rate 100 mL/min (>60); Est Glom Filt Rate - Afr Amer 121 mL/min (>60); Estimated Creatinine Clearance 40.83 ml/min; Glucose 65 mg/dL (74-106); Sodium Level 143 mmol/L (136-145)
[2023-07-05] MEDS: Acetaminophen 325 MG Tablet 650 MG PO (04:56)
[2023-07-05] MEDS: oxyCODONE 5 MG Tablet PO ×3 (04:57→21:23)
[2023-07-05 06:02] LABS: Differential Comment SCANNED
[2023-07-05 06:03] LABS: Platelet Estimate MOD DEC (ADEQ)
--- NOTE | 2023-07-05 07:50 | PCM.PN.SRG ---
Subjective Subjective Positive flatus from her ostomy, patient is hungry, patient had an enema for the vancomycin in the From the enema kit was left on and the nurse was unable to retrieve it. Objective Data Objective Data Vital Signs: Vital Signs Temp Pulse Resp BP Pulse Ox O2 Del Method O2 Flow Rate 97.8 F 68 16 156/79 H 99 Nasal Cannula 2 07/05/23 06:00 07/05/23 06:00 07/05/23 06:00 07/05/23 06:00 07/05/23 06:00 07/05/23 06:00 07/05/23 06:00 FiO2 28 07/04/23 06:00 Oxygen Flow Rate (L/min) 2 Oxygen Delivery Method Nasal Cannula Weight: 158 lb 11.725 oz Body Mass Index (BMI) 28.0 Intake & Output: Intake and Output for Last 24 Hours 07/03/23 07/04/23 07/05/23 23:59 23:59 23:59 Intake Total 3294.18 / 3294.18 3590.00 / 3640.00 1119.17 / 1119.17 Output Total 2150 / 2210 1180 / 1480 790 / 790 Balance 1144.18 / 1084.18 2410.00 / 2160.00 329.17 / 329.17 Lab / Micro Data 07/05/23 04:30 07/05/23 04:30 Labs: Laboratory Results - last 24 hr 07/04/23 04:45: WBC 8.5, RBC 3.06 L, Hgb 9.3 L, Hct 30.0 L, MCV 98.0, MCH 30.4, MCHC 31.0 L, RDW Std Deviation 53.1 H, RDW Coeff of Eloisa 14.8 H, Plt Count 62 L, MPV 11.3, Immature Gran % (Auto) 0.800, Neut % (Auto) 93.2 H, Lymph % (Auto) 4.1 L, Randall % (Auto) 1.8, Eos % (Auto) 0.0, Baso % (Auto) 0.1, Absolute Neuts (auto) 7.9 H, Absolute Lymphs (auto) 0.35 L, Nucleated RBC % 0, Differential Comment SCANNED 07/04/23 06:30: Sodium 143, Potassium 4.0, Chloride 116 H, Carbon Dioxide 22.0, Anion Gap 5, BUN 25 H, Creatinine 0.75, Estim Creat Clear Calc 40.83, Est GFR (MDRD) Af Amer 97, Est GFR (MDRD) Non-Af 80, BUN/Creatinine Ratio 33.3 H, Glucose 75, Calcium 7.4 L 07/05/23 04:30: WBC 6.8, RBC 3.33 L, Hgb 9.9 L, Hct 32.1 L, MCV 96.4, MCH 29.7, MCHC 30.8 L, RDW Std Deviation 50.8 H, RDW Coeff of Eloisa 14.3, Plt Count 63 L, MPV 10.5, Immature Gran % (Auto) 1.000 H, Neut % (Auto) 90.0 H, Lymph % (Auto) 6.3 L, Randall % (Auto) 2.6, Eos % (Auto) 0.0, Baso % (Auto) 0.1, Absolute Neuts (auto) 6.1, Absolute Lymphs (auto) 0.43 L, Nucleated RBC % 0.3, Differential Comment SCANNED, Platelet Estimate MOD DEC, Sodium 143, Potassium 4.0, Chloride 118 H, Carbon Dioxide 21.0, Anion Gap 4 L, BUN 26 H, Creatinine 0.62, Estim Creat Clear Calc 40.83, Est GFR (MDRD) Af Amer 121, Est GFR (MDRD) Non-Af 100, BUN/Creatinine Ratio 42.1 H, Glucose 65 L, Calcium 8.0 L Micro: Microbiology 07/01/23 19:35 Blood Culture (Wb) - Port Blood Culture - Preliminary 07/01/23 18:57 Blood Culture (Wb) - Port Blood Culture - Preliminary No growth in 48 hours. 07/01/23 21:30 Urine, Clean Catch Urine Culture - Final Culture exhibits no growth. 07/02/23 10:00 Stool Stool Lactoferrin - Final 07/02/23 10:00 Stool C. difficile GDH Antigen & Toxins - Final 07/02/23 10:00 Stool C. difficile DNA Amplification - Final 07/02/23 09:39 Stool Enteric Bacteriology - Final 07/01/23 22:15 Stool Stool Occult Blood (BRITNI) - Final Occult Blood Positive Physical Exam Const oriented x3 Resp normal respiratory effort Cardio regular rate GI soft to palpation GI Narrative: Incision clean dry intact with shaunna, ostomy edematous?flatus in ostomy bag, UNIQUE serous GORDON: Enema kit cap retrieved per rectum patient tolerated well. Assessment & Plan Assessment/Plan (1) Status post Eleno procedure: (2) Ischemic bowel disease: (3) Chemotherapy management, encounter for: PLAN: Plan POD#3 exlap, left hemicolectomy, hartmanns-(traverse) Flatus in her ostomy appliance, start clears okay to advance to full's if tolerates then regular Hemoglobin 9.9 this morning from 9.3 yesterday. Patient's had a total of 3 units packed red blood cells-acute on chronic anemia. Thrombocytopenia platelets down to 63 likely due to patient's recent chemo. Would hold off on anticoagulation due to platelets. Continue pain control Margarita Dale M.D. Pager: [phone] [facility] [address] [place] [address], [facility], [address] [place] [id number] Office: [phone]
--- NOTE | 2023-07-05 08:36 | CASEMGMT ---
Social Work SW checked in w/pt about completing LW/POA. She states her is supposed to be bringing in her daughter's information in order to complete the LW/POA, he is to be here later today. SW asked pt to let RN know when she is ready to complete the LW/POA forms and SW will return to assist. Pt states understanding. JUAQUIN De Leon
[2023-07-05] MEDS: dexAMETHasone 4 MG Tablet PO (08:49)
--- NOTE | 2023-07-05 09:25 | WOUNDNOTE ---
Colostomy appliance remains intact to the left abdomen. appliance was changed on 07/04/23. there is flatus noted in the appliance and patient states has a small amount of stool this am that had been emptied. patient denies much discomfort at this time. colostomy teaching packet given to patient. very appreciative of care. denies further needs at this time.
[2023-07-05] MEDS: Colestipol 1 GM TABLET PO ×2 (10:46→20:52)
[2023-07-05] MEDS: Montelukast 10 MG Tablet PO (10:46)
--- NOTE | 2023-07-05 10:54 | CASEMGMT ---
JARED BURRELL NOTE: JARED BURRELL to room. Discussed discharge planning and HHC. Pt wishes to d/c home w/ HHC. She and her reviewed HHC list that was provided yesterday and [facility] is 1st choice, 2nd choice is [facility], 3rd choice is [facility]. Call placed to Viridiana @ [facility] and referral made. Per Viridiana, they are not in-network w/pt's insurance. Afua, D/C c4 planner, notified of pt's other top preferences and to send referral via [employer]. Script for colostomy supplies have been scanned in and [employer] aware to include this w/pt's referral. Pt has also been provided a copy of script for supplies. Order for HHC, SN and PT/OT has been entered. Pt would like a shower chair and declines having preference of DME co for this. Per Lakeisha, @ [facility], they do have shower chairs and it will be covered by pt's insurance. [employer] delivers to [place] area on Mondays and Tuesdays and Lakesiha states this can be delivered to pt's home next week if she discharges home over the w/e. Pt and made aware and voice appreciation. Michael FIELDS RN, CM
--- NOTE | 2023-07-05 11:07 | CASEMGMT ---
Discharge Planning HH referral sent to [facility] via [facility]. Afua Brown, Discharge Planning Asst
--- NOTE | 2023-07-05 15:30 | PN_ITS ---
Subjective Subjective Patient seen and examined. She had no active complaints and felt much better. Review of systems is otherwise negative. Objective Data Objective Data Vital Signs: Vital Signs Temp Pulse Resp BP Pulse Ox O2 Del Method O2 Flow Rate 98.2 F 78 20 H 180/84 H 96 Room Air 2 07/05/23 14:00 07/05/23 14:00 07/05/23 14:00 07/05/23 14:00 07/05/23 14:00 07/05/23 14:00 07/05/23 10:00 FiO2 28 07/04/23 06:00 Oxygen Flow Rate (L/min) 2 Oxygen Delivery Method Room Air Weight: 158 lb 11.725 oz Body Mass Index (BMI) 28.0 Intake & Output: Intake and Output for Last 24 Hours 07/03/23 07/04/23 07/05/23 23:59 23:59 23:59 Intake Total 3294.18 / 3294.18 3590.00 / 3640.00 2279.17 / 2279.17 Output Total 2150 / 2210 1180 / 1480 1385 / 1385 Balance 1144.18 / 1084.18 2410.00 / 2160.00 894.17 / 894.17 Lab / Micro Data 07/05/23 04:30 07/05/23 04:30 Labs: Laboratory Results - last 24 hr 07/05/23 04:30: WBC 6.8, RBC 3.33 L, Hgb 9.9 L, Hct 32.1 L, MCV 96.4, MCH 29.7, MCHC 30.8 L, RDW Std Deviation 50.8 H, RDW Coeff of Eloisa 14.3, Plt Count 63 L, MPV 10.5, Immature Gran % (Auto) 1.000 H, Neut % (Auto) 90.0 H, Lymph % (Auto) 6.3 L, Bowman % (Auto) 2.6, Eos % (Auto) 0.0, Baso % (Auto) 0.1, Absolute Neuts (a uto) 6.1, Absolute Lymphs (auto) 0.43 L, Nucleated RBC % 0.3, Differential Co mment SCANNED, Platelet Estimate MOD DEC, Sodium 143, Potassium 4.0, Chloride 118 H, Carbon Dioxide 21.0, Anion Gap 4 L, BUN 26 H, Creatinine 0.62, Estim Creat Clear Calc 40.83, Est GFR (MDRD) Af Amer 121, Est GFR (MDRD) Non-Af 100, BUN/Creatinine Ratio 42.1 H, Glucose 65 L, Calcium 8.0 L Micro: Microbiology 07/01/23 19:35 Blood Culture (Wb) - Port Blood Culture - Preliminary 07/01/23 18:57 Blood Culture (Wb) - Port Blood Culture - Preliminary No growth in 48 hours. 07/01/23 21:30 Urine, Clean Catch Urine Culture - Final Culture exhibits no growth. 07/02/23 10:00 Stool Stool Lactoferrin - Final 07/02/23 10:00 Stool C. difficile GDH Antigen & Toxins - Final 07/02/23 10:00 Stool C. difficile DNA Amplification - Final 07/02/23 09:39 Stool Enteric Bacteriology - Final 07/01/23 22:15 Stool Stool Occult Blood (BRITNI) - Final Occult Blood Positive Physical Exam Const alert, oriented x3 and no apparent distress General Appearance: cooperative HEENT normocephalic, head/scalp atraumatic and moist oral mucous membranes Eyes PERRL and EOMs intact bilaterally Neck no lymphadenopathy, supple and no JVD Lymph Lymphatic: no lymphadenopathy noted and no lymphedema noted Resp normal respiratory effort, normal air movement and clear to auscultation bilaterally Cardio regular rate, regular rhythm, S1 normal heart sound, S2 normal heart sound and no murmurs GI GI Narrative: intact sutures over abdominal surgical site. colostomy bag in place Extremity normal capillary refill, no clubbing, cyanosis or edema and no calf tenderness General Extremity: no tenderness to palpation of joints or extremities Skin General Skin Exam: no breakdown Neuro CN's II-XII intact bilaterally, no focal motor deficits and no sensory deficits noted Psych thought process normal, cooperative and affect normal Appearance: appropriate Assessment & Plan Assessment/Plan (1) Ischemic bowel disease: (2) Status post Eleno procedure: PLAN: Plan #ISchemic colitis * s/p exploratory laparotomy with hemicolectomy and colostomy on * C diff positive. on rectal vancomycin * general surgery on board * management as per general surgery * per general surgery, ok to start clears and advance to full if tolerated, then to regular. * * Septic shock due to ischemic colitis * resolved. off levophed. * #C diff colitis * on rectal vancomycin * no loose stools in colostomy bag. * on IV flagyl also * #Stage IIIb non-small cell lung cancer * S/p chemotherapy and radiation. PET scan in April 2023 showed progressive disease in right upper lung, and she is started on a second course of chemotherapy. On cisplatin and Gemzar. * To follow-up with oncology on outpatient basis. #Acue on chronic Anemia * S/p 3 units of packed red blood cells for acute on chronic anemia due to acute blood loss during surgery. * Hb today is 9.9. Will monitor. * #Thrombocytopenia: Platelets are 63. Likely related to her chemotherapy and acute illness. Not any anticoagulation. Will monitor. #Hypertension: Blood pressure medications were held as she was in shock and required Levophed. Now off Levophed and blood pressure is elevated. We will resume BP meds. IV hydralazine as needed. #Hyperlipidemia: On statin #COPD: Not in exacerbation. On breathing treatments with bronchodilators DVT prophylaxis: SCDs Charges/Coding Visit Charges Inpatient E&M: 37740 [facility] Hosp L3
[2023-07-05] MEDS: Lisinopril 20 MG Tablet PO (16:15)
--- NOTE | 2023-07-05 16:16 | CASEMGMT ---
Addendum entered by Bridget Delgado 07/05/23 16:33: Script prepared for shower chair w/back and placed on pt's chart. Script to be signed by hospitalist @ discharge and to be faxed to [employer] along w/demographic sheet. [employer] to deliver shower chair to pt's home on either Mon or Tu, if pt discharges over the w/e. Pt made aware and voices appreciation. Original Note: JARED BURRELL NOTE: JARED BURRELL spoke w/Courtney @ [facility] intake. She states they have verified pt's insurance and they are able to accept pt. She is aware anticipate pt will be ready for discharge over the weekend. Pt made aware [facility] able to accept her. Discharge plan updated w/info and Green sheet left on pt's chart with instructions for HHC notification if pt does d/c over the w/e. Michael FIELDS RN, CM
[2023-07-05] MEDS: Albuterol 2.5 MG/3 ML VIAL.NEB. INHALATION (19:35)
[2023-07-05] MEDS: Gabapentin 300 MG Capsule PO (20:52)
[2023-07-05] MEDS: Atorvastatin Calcium 10 MG Tablet PO (20:53)
[2023-07-06] VITALS (12 sets, daily range): BP systolic 140–175; BP diastolic 70–88; PULSE 65–85; RESP 13–19; TEMP 36.1–37; O2SAT 93–99; BMI 28.1
[2023-07-06] MEDS: oxyCODONE 5 MG Tablet PO ×4 (02:41→17:21)
[2023-07-06] MEDS: Acetaminophen 325 MG Tablet 650 MG PO ×3 (02:41→17:21)
[2023-07-06] MEDS: Morphine 2 MG/ML Syringe IV ×2 (04:17→20:31)
[2023-07-06] MEDS: 0.9% Normal Saline 1,000 ML 125 ML IV (04:21)
[2023-07-06 04:34] LABS: Absolute Lymphocyte Count 0.61 X10^3/uL (0.83-4.51); Absolute Neutrophil Count 4.3 X10^3/uL (2.0-7.7); Eosinophil# 0.02 X10^3/uL; Eosinophils% 0.4 % (0-5); Hematocrit 30.5 % (37-47); Hemoglobin 9.3 g/dL (12.0-15.0); Lymphocyte # 0.61 X10^3/ul (0.83-4.51); Lymphocyte % 11.7 % (19-41); Mean Corp Hgb Conc 30.5 g/dL (32-36); Mean Corpuscular Hgb 29.4 pg (27.0-32.0); Mean Corpuscular Volume 96.5 fL (81-99); Mean Platelet Vol. 10.1 fl (6.2-12.0); Monocyte# 0.27 X10^3/uL; Monocyte% 5.2 % (0-10); NRBC Flagged by Analyzer 0 % (0-5); Neutrophil % 82.1 % (47-70); POSITIVE COUNT YES; Platelet Count 65 K/mm3 (150-450); RBC Distribution Width CV 14.3 % (11.6-14.6); Red Blood Count 3.16 M/mm3 (4.2-5.4); White Blood Count 5.2 K/mm3 (4.4-11.0)
[2023-07-06 04:49] LABS: Anion Gap 4 (5-15); BUN 17 mg/dL (7-18); BUN/Creat Ratio 29.3 RATIO (10-20); Calcium,Total 7.5 mg/dL (8.5-10.1); Chloride 117 mmol/L (98-107); Creatinine, Serum 0.58 mg/dL (0.55-1.02); EST Glomerular Filtration Rate 108 mL/min (>60); Est Glom Filt Rate - Afr Amer 130 mL/min (>60); Estimated Creatinine Clearance 40.83 ml/min; Glucose 81 mg/dL (74-106); Potassium 3.1 mmol/L (3.5-5.1); Sodium Level 144 mmol/L (136-145)
[2023-07-06] MEDS: Vancomycin HCl 500 MG, Sodium Chloride Irrig Solution 90 ML RC (05:29)
[2023-07-06] MEDS: fentaNYL 100 MCG/2 ML Ampul IV (05:29)
[2023-07-06] MEDS: Albuterol 2.5 MG/3 ML VIAL.NEB. INHALATION (07:22)
--- NOTE | 2023-07-06 07:26 | PN.HOSP_ITS ---
Reason for Visit Reason for Visit: Diagnoses Acidosis, unspecified (07/01/23) Noninfective gastroenteritis and colitis, unspecified (07/01/23) Vascular disorder of intestine, unspecified (07/01/23) Gastrointestinal hemorrhage, unspecified (07/01/23) Acute kidney failure, unspecified (07/01/23) Nausea with vomiting, unspecified (07/01/23) Diarrhea, unspecified (07/01/23) Encounter for antineoplastic chemotherapy (07/01/23) Colostomy status (07/01/23) Subjective Subjective Patient is a 73-year-old female who presented with nausea vomiting and diarrhea diagnosed with ischemic colitis for which he underwent exploratory laparotomy. Hospital stay was subsequently complicated by C. difficile colitis Objective Data Objective Data Vital Signs: Vital Signs Temp Pulse Resp BP Pulse Ox O2 Del Method O2 Flow Rate 98.4 F 69 16 162/70 H 95 Room Air 2 07/06/23 07:00 07/06/23 07:23 07/06/23 07:23 07/06/23 07:00 07/06/23 07:23 07/06/23 07:23 07/05/23 19:00 FiO2 28 07/04/23 06:00 Oxygen Flow Rate (L/min) 2 Oxygen Delivery Method Room Air Weight: 72.1 kg Body Mass Index (BMI) 28.1 Intake & Output: Intake and Output for Last 24 Hours 07/04/23 07/05/23 07/06/23 23:59 23:59 23:59 Intake Total 3590.00 / 3640.00 3561.67 / 3561.67 998.67 / 998.67 Output Total 1180 / 1480 2140 / 2180 410 / 410 Balance 2410.00 / 2160.00 1421.67 / 1381.67 588.67 / 588.67 Lab / Micro Data 07/06/23 04:10 07/06/23 04:10 Labs: Laboratory Results - last 24 hr 07/06/23 04:10: WBC 5.2, RBC 3.16 L, Hgb 9.3 L, Hct 30.5 L, MCV 96.5, MCH 29.4, MCHC 30.5 L, RDW Std Deviation 51.0 H, RDW Coeff of Eloisa 14.3, Plt Count 65 L, MPV 10.1, Immature Gran % (Auto) 0.600, Neut % (Auto) 82.1 H, Lymph % (Auto) 11.7 L, Steuben % (Auto) 5.2, Eos % (Auto) 0.4, Baso % (Auto) 0.0, Absolute Neuts (auto) 4.3, Absolute Lymphs (auto) 0.61 L, Nucleated RBC % 0, Sodium 144, Potassium 3.1 L, Chloride 117 H, Carbon Dioxide 23.0, Anion Gap 4 L, BUN 17, Creatinine 0.58, Estim Creat Clear Calc 40.83, Est GFR (MDRD) Af Amer 130, Est GFR (MDRD) Non-Af 108, BUN/Creatinine Ratio 29.3 H, Glucose 81, Calcium 7.5 L Micro: Microbiology 07/01/23 19:35 Blood Culture (Wb) - Port Blood Culture - Preliminary 07/01/23 18:57 Blood Culture (Wb) - Port Blood Culture - Preliminary No growth in 48 hours. 07/01/23 21:30 Urine, Clean Catch Urine Culture - Final Culture exhibits no growth. 07/02/23 10:00 Stool Stool Lactoferrin - Final 07/02/23 10:00 Stool C. difficile GDH Antigen & Toxins - Final 07/02/23 10:00 Stool C. difficile DNA Amplification - Final 07/02/23 09:39 Stool Enteric Bacteriology - Final 07/01/23 22:15 Stool Stool Occult Blood (BRITNI) - Final Occult Blood Positive Physical Exam Narrative GENERAL: cooperative HEENT: Atraumatic; normocephalic EYES; Anicteric, Normal Conjunctiva NECK; supple, normal thyroid, RESPIRATORY: Diminished to auscultation CARDIOVASCULAR: Regular S1 S2, GI: Surgical incision clean dry and intact, colostomy intact : No Renal angle tenderness; EXTREMITIES: No edema, no clubbing, MUSCULOSKELETAL: no muscle wasting NEURO: Awake; no lateralizing signs. SKIN: No Rash PSYCH; Flat affect Assessment & Plan Assessment/Plan (1) Ischemic bowel disease: (2) Status post Eleno procedure: PLAN: Plan Patient is a 73-year-old female who presented with nausea vomiting and diarrhea diagnosed with ischemic colitis for which he underwent exploratory laparotomy. Hospital stay was subsequently complicated by C. difficile colitis 1. Ischemic colitis ? s/p exploratory laparotomy with hemicolectomy and colostomy on . Case discussed with Dr. Vazquez plan is to advance diet as tolerated 2. Septic shock ? Secondary to ischemic colitis ? Managed with IV fluids pressors as well as broad-spectrum antibiotic therapy resolved 3. Acute C. difficile colitis ? Managed with rectal vancomycin initially switched to p.o. vancomycin 4. Stage IIIb non-small cell lung cancer -S/p chemotherapy and radiation. PET scan in April 2023 showed progressive disease in right upper lung, and she is started on a second course of chemotherapy. On cisplatin and Gemzar. -To follow-up with oncology on outpatient basis. 5. Anemia ? Secondary to acute blood loss anemia following surgery patient was transfused with 3 units PRBC following surgery. 6. Thrombocytopenia ? Platelet count 65 chemo-induced thrombocytopenia monitoring with daily CBC w ith differential 7. Essential hypertension ? Patient antihypertensives held given her low blood pressure 7. Dyslipidemia ? On statin therapy 8. COPD ? Not in exacerbation aerosol treatment as needed 9. DVT prophylaxis Bilateral Time spent in the patient's overall evaluation,decision-making process, review of diagnostic data, adjustment of management, discussion with other providers, nursing nursing and ancillary staff involved in patient's care documentation, 55 minutes Charges/Coding Visit Charges Inpatient E&M: 52223 [facility] Hosp L3
--- NOTE | 2023-07-06 08:38 | PCM.PN.SRG ---
Subjective Subjective Patient reports she is having some discomfort but it is no worse than yesterday. She tolerated regular diet. She is having gas in her colostomy bag Objective Data Objective Data Vital Signs: Vital Signs Temp Pulse Resp BP Pulse Ox O2 Del Method O2 Flow Rate 98.4 F 69 16 162/70 H 95 Room Air 2 07/06/23 07:00 07/06/23 07:23 07/06/23 07:23 07/06/23 07:00 07/06/23 07:23 07/06/23 07:23 07/05/23 19:00 FiO2 28 07/04/23 06:00 Oxygen Flow Rate (L/min) 2 Oxygen Delivery Method Room Air Weight: 158 lb 15.253 oz Body Mass Index (BMI) 28.1 Intake & Output: Intake and Output for Last 24 Hours 07/04/23 07/05/23 07/06/23 23:59 23:59 23:59 Intake Total 3590.00 / 3640.00 3561.67 / 3561.67 998.67 / 998.67 Output Total 1180 / 1480 2140 / 2180 410 / 410 Balance 2410.00 / 2160.00 1421.67 / 1381.67 588.67 / 588.67 Lab / Micro Data 07/06/23 04:10 07/06/23 04:10 Labs: Laboratory Results - last 24 hr 07/06/23 04:10: WBC 5.2, RBC 3.16 L, Hgb 9.3 L, Hct 30.5 L, MCV 96.5, MCH 29.4, MCHC 30.5 L, RDW Std Deviation 51.0 H, RDW Coeff of Eloisa 14.3, Plt Count 65 L, MPV 10.1, Immature Gran % (Auto) 0.600, Neut % (Auto) 82.1 H, Lymph % (Auto) 11.7 L, Hopkins % (Auto) 5.2, Eos % (Auto) 0.4, Baso % (Auto) 0.0, Absolute Neuts (auto) 4.3, Absolute Lymphs (auto) 0.61 L, Nucleated RBC % 0, Sodium 144, Potassium 3.1 L, Chloride 117 H, Carbon Dioxide 23.0, Anion Gap 4 L, BUN 17, Creatinine 0.58, Estim Creat Clear Calc 40.83, Est GFR (MDRD) Af Amer 130, Est GFR (MDRD) Non-Af 108, BUN/Creatinine Ratio 29.3 H, Glucose 81, Calcium 7.5 L Micro: Microbiology 07/01/23 19:35 Blood Culture (Wb) - Port Blood Culture - Preliminary 07/01/23 18:57 Blood Culture (Wb) - Port Blood Culture - Preliminary No growth in 48 hours. 07/01/23 21:30 Urine, Clean Catch Urine Culture - Final Culture exhibits no growth. 07/02/23 10:00 Stool Stool Lactoferrin - Final 07/02/23 10:00 Stool C. difficile GDH Antigen & Toxins - Final 07/02/23 10:00 Stool C. difficile DNA Amplification - Final 07/02/23 09:39 Stool Enteric Bacteriology - Final 07/01/23 22:15 Stool Stool Occult Blood (BRITNI) - Final Occult Blood Positive Physical Exam Const oriented x3 Resp normal respiratory effort GI soft to palpation Inspection: Negative for abdominal distention Palpation: tender Assessment & Plan Assessment/Plan (1) Status post Eleno procedure: PLAN: The patient is tolerating a regular diet and passing gas through her stoma. Her UNIQUE was still serosanguineous this morning and I removed it. I do not believe the patient still needs full IV fluids and I have advised the nurse to stop IV fluids if okay with primary service. Patient may also have her Srivastava removed. Okay to transfer to the floor and likely DC once she is having stool through her stoma. Mychal Vazquez MD Pager: [facility] [address] [place] [address], [address] [place] [phone] Office:
[2023-07-06] MEDS: Montelukast 10 MG Tablet PO (11:51)
[2023-07-06] MEDS: 0.9% Saline Lock 10 ML Syringe IV ×2 (11:51→20:31)
[2023-07-06] MEDS: Colestipol 1 GM TABLET PO ×2 (11:51→22:19)
[2023-07-06] MEDS: Lisinopril 20 MG Tablet PO (11:52)
[2023-07-06] MEDS: dexAMETHasone 4 MG Tablet PO (11:52)
[2023-07-06] MEDS: 0.9% Normal Saline 1,000 ML 1 ML IV (17:21)
[2023-07-06] MEDS: Vancomycin 125 MG/5 ML Susp PO.SYRINGE PO (17:22)
[2023-07-06] MEDS: Gabapentin 300 MG Capsule PO (22:19)
[2023-07-06] MEDS: Atorvastatin Calcium 10 MG Tablet PO (22:20)
[2023-07-07] VITALS (9 sets, daily range): BP systolic 128–202; BP diastolic 62–78; PULSE 66–91; RESP 16–24; TEMP 36.3–36.9; O2SAT 94–98
[2023-07-07] MEDS: Vancomycin 125 MG/5 ML Susp PO.SYRINGE PO ×4 (00:28→17:32)
[2023-07-07] MEDS: Morphine 2 MG/ML Syringe IV (00:28)
[2023-07-07] MEDS: oxyCODONE 5 MG Tablet PO ×2 (05:27→20:45)
[2023-07-07] MEDS: hydrALAZINE 20 MG/ML Vial 10 MG IV (05:39)
[2023-07-07 06:27] LABS: Absolute Lymphocyte Count 0.47 X10^3/uL (0.83-4.51); Absolute Neutrophil Count 4.2 X10^3/uL (2.0-7.7); Basophil# 0.01 X10^3/uL; Basophil% 0.2 % (0-1); Eosinophil# 0.02 X10^3/uL; Eosinophils% 0.4 % (0-5); Hematocrit 34.3 % (37-47); Hemoglobin 10.8 g/dL (12.0-15.0); Lymphocyte # 0.47 X10^3/ul (0.83-4.51); Lymphocyte % 9.5 % (19-41); Mean Corp Hgb Conc 31.5 g/dL (32-36); Mean Corpuscular Hgb 29.8 pg (27.0-32.0); Mean Corpuscular Volume 94.5 fL (81-99); Monocyte# 0.21 X10^3/uL; Monocyte% 4.2 % (0-10); NRBC Flagged by Analyzer 0 % (0-5); Neutrophil # 4.21 X10^3/uL (2.7-7.7); Neutrophil % 85.1 % (47-70); POSITIVE COUNT YES; POSITIVE DIFFERENTIAL YES; Platelet Count 86 K/mm3 (150-450); RBC Distribution Width CV 13.9 % (11.6-14.6); Red Blood Count 3.63 M/mm3 (4.2-5.4)
[2023-07-07 06:44] LABS: Differential Indicated SCAN CRITERIA MET
[2023-07-07 07:18] LABS: Differential Comment SCANNED
--- NOTE | 2023-07-07 07:32 | PN.HOSP_ITS ---
Reason for Visit Reason for Visit: Diagnoses Acidosis, unspecified (07/01/23) Noninfective gastroenteritis and colitis, unspecified (07/01/23) Vascular disorder of intestine, unspecified (07/01/23) Gastrointestinal hemorrhage, unspecified (07/01/23) Acute kidney failure, unspecified (07/01/23) Nausea with vomiting, unspecified (07/01/23) Diarrhea, unspecified (07/01/23) Encounter for antineoplastic chemotherapy (07/01/23) Colostomy status (07/01/23) Subjective Subjective Patient was transferred from the intensive care unit to [facility]. Was on rectal vancomycin switch to p.o. vancomycin Objective Data Objective Data Vital Signs: Vital Signs Temp Pulse Resp BP Pulse Ox O2 Del Method O2 Flow Rate 97.3 F L 66 16 181/76 H 98 Room Air 2 07/07/23 05:44 07/07/23 05:44 07/07/23 05:44 07/07/23 05:44 07/07/23 05:44 07/07/23 05:44 07/05/23 19:00 FiO2 28 07/04/23 06:00 Oxygen Flow Rate (L/min) 2 Oxygen Delivery Method Room Air Weight: 72.1 kg Body Mass Index (BMI) 28.1 Intake & Output: Intake and Output for Last 24 Hours 07/05/23 07/06/23 07/07/23 23:59 23:59 23:59 Intake Total 3561.67 / 3561.67 2318.74 / 2568.74 550 / 550 Output Total 2140 / 2180 985 / 985 Balance 1421.67 / 1381.67 1333.74 / 1583.74 550 / 550 Lab / Micro Data 07/07/23 06:03 07/07/23 06:03 Labs: Laboratory Results - last 24 hr 07/07/23 06:03: WBC 5.0, RBC 3.63 L, Hgb 10.8 L, Hct 34.3 L, MCV 94.5, MCH 29.8, MCHC 31.5 L, RDW Std Deviation 48.0 H, RDW Coeff of Eloisa 13.9, Plt Count 86 L, MPV 11.0, Immature Gran % (Auto) 0.600, Neut % (Auto) 85.1 H, Lymph % (Auto) 9.5 L, Carson % (Auto) 4.2, Eos % (Auto) 0.4, Baso % (Auto) 0.2, Absolute Neuts (auto) 4.2, Absolute Lymphs (auto) 0.47 L, Nucleated RBC % 0, Differential Comment SCANNED Micro: Microbiology 07/01/23 18:57 Blood Culture (Wb) - Port Blood Culture - Final No growth in 5 days. 07/01/23 19:35 Blood Culture (Wb) - Port Blood Culture - Preliminary 07/01/23 21:30 Urine, Clean Catch Urine Culture - Final Culture exhibits no growth. 07/02/23 10:00 Stool Stool Lactoferrin - Final 07/02/23 10:00 Stool C. difficile GDH Antigen & Toxins - Final 07/02/23 10:00 Stool C. difficile DNA Amplification - Final 07/02/23 09:39 Stool Enteric Bacteriology - Final 07/01/23 22:15 Stool Stool Occult Blood (BRITNI) - Final Occult Blood Positive Physical Exam Narrative GENERAL: cooperative HEENT: Atraumatic; normocephalic EYES; Anicteric, Normal Conjunctiva NECK; supple, normal thyroid, RESPIRATORY: Diminished to auscultation CARDIOVASCULAR: Regular S1 S2, GI: Surgical incision clean dry and intact, colostomy intact : No Renal angle tenderness; EXTREMITIES: No edema, no clubbing, MUSCULOSKELETAL: no muscle wasting NEURO: Awake; no lateralizing signs. SKIN: No Rash PSYCH; Flat affect Assessment & Plan Assessment/Plan (1) Ischemic bowel disease: (2) Status post Eleno procedure: PLAN: Plan Patient is a 73-year-old female who presented with nausea vomiting and diarrhea diagnosed with ischemic colitis for which he underwent exploratory laparotomy. Hospital stay was subsequently complicated by C. difficile colitis 1. Ischemic colitis ? s/p exploratory laparotomy with hemicolectomy and colostomy on . Case discussed with Dr. Vazquez plan is to advance diet as tolerated ? 07/07/2023 patient has tolerated diet 2. Septic shock ? Secondary to ischemic colitis ? Managed with IV fluids pressors as well as broad-spectrum antibiotic therapy - resolved 3. Acute C. difficile colitis ? Managed with rectal vancomycin initially switched to p.o. vancomycin 4. Stage IIIb non-small cell lung cancer -S/p chemotherapy and radiation. PET scan in April 2023 showed progressive disease in right upper lung, and she is started on a second course of chemotherapy. On cisplatin and Gemzar. -To follow-up with oncology on outpatient basis. 5. Anemia ? Secondary to acute blood loss anemia following surgery patient was transfused with 3 units PRBC following surgery. 6. Thrombocytopenia ? Platelet count 65 chemo-induced thrombocytopenia monitoring with daily CBC with differential 7. Essential hypertension ? Patient antihypertensives held given her low blood pressure 7. Dyslipidemia ? On statin therapy 8. COPD ? Not in exacerbation aerosol treatment as needed 9. DVT prophylaxis Bilateral SCDs 10. Physical deconditioning - Requested for PT OT eval and social work case manager to assist with discharge planning. Plan is for patient to be discharged home with home health on 07/08/2023 Time spent in the patient's overall evaluation,decision-making process, review of diagnostic data, adjustment of management, discussion with other providers, nursing nursing and ancillary staff involved in patient's care documentation,40 minutes Charges/Coding Visit Charges Inpatient E&M: 12600 Subs Hosp L2
[2023-07-07] MEDS: Albuterol 2.5 MG/3 ML VIAL.NEB. INHALATION ×2 (07:36→19:53)
[2023-07-07 07:50] LABS: Anion Gap 7 (5-15); BUN 11 mg/dL (7-18); BUN/Creat Ratio 21.7 RATIO (10-20); Calcium,Total 8.2 mg/dL (8.5-10.1); Chloride 111 mmol/L (98-107); Creatinine, Serum 0.51 mg/dL (0.55-1.02); EST Glomerular Filtration Rate 126 mL/min (>60); Est Glom Filt Rate - Afr Amer 153 mL/min (>60); Estimated Creatinine Clearance 40.83 ml/min; Glucose 84 mg/dL (74-106); Magnesium 1.2 mg/dL (1.6-2.6); Phosphorus 2.9 mg/dL (2.5-4.9); Potassium 2.7 mmol/L (3.5-5.1); Sodium Level 141 mmol/L (136-145)
--- NOTE | 2023-07-07 08:47 | PCM.PN.SRG ---
Subjective Subjective Patient is tolerating normal diet with no abdominal pain or nausea. She feels very comfortable this morning. Objective Data Objective Data Vital Signs: Vital Signs Temp Pulse Resp BP Pulse Ox O2 Del Method O2 Flow Rate 97.6 F L 91 18 128/62 H 98 Room Air 2 07/07/23 08:42 07/07/23 08:42 07/07/23 08:42 07/07/23 08:42 07/07/23 08:42 07/07/23 08:42 07/05/23 19:00 FiO2 28 07/04/23 06:00 Oxygen Flow Rate (L/min) 2 Oxygen Delivery Method Room Air Weight: 158 lb 15.253 oz Body Mass Index (BMI) 28.1 Intake & Output: Intake and Output for Last 24 Hours 07/05/23 07/06/23 07/07/23 23:59 23:59 23:59 Intake Total 3561.67 / 3561.67 2318.74 / 2568.74 550 / 550 Output Total 2140 / 2180 985 / 985 Balance 1421.67 / 1381.67 1333.74 / 1583.74 550 / 550 Lab / Micro Data 07/07/23 06:03 07/07/23 06:03 Labs: Laboratory Results - last 24 hr 07/07/23 06:03: WBC 5.0, RBC 3.63 L, Hgb 10.8 L, Hct 34.3 L, MCV 94.5, MCH 29.8, MCHC 31.5 L, RDW Std Deviation 48.0 H, RDW Coeff of Eloisa 13.9, Plt Count 86 L, MPV 11.0, Immature Gran % (Auto) 0.600, Neut % (Auto) 85.1 H, Lymph % (Auto) 9.5 L, [place] % (Auto) 4.2, Eos % (Auto) 0.4, Baso % (Auto) 0.2, Absolute Neuts (auto) 4.2, Absolute Lymphs (auto) 0.47 L, Nucleated RBC % 0, Differential Comment SCANNED, Sodium 141, Potassium 2.7 L*, Chloride 111 H, Carbon Dioxide 23.0, Anion Gap 7, BUN 11, Creatinine 0.51 L, Estim Creat Clear Calc 40.83, Est GFR (MDRD) Af Amer 153, Est GFR (MDRD) Non-Af 126, BUN/Creatinine Ratio 21.7 H, Glucose 84, Calcium 8.2 L, Phosphorus 2.9, Magnesium 1.2 L Micro: Microbiology 07/01/23 18:57 Blood Culture (Wb) - Port Blood Culture - Final No growth in 5 days. 07/01/23 19:35 Blood Culture (Wb) - Port Blood Culture - Preliminary 07/01/23 21:30 Urine, Clean Catch Urine Culture - Final Culture exhibits no growth. 07/02/23 10:00 Stool Stool Lactoferrin - Final 07/02/23 10:00 Stool C. difficile GDH Antigen & Toxins - Final 07/02/23 10:00 Stool C. difficile DNA Amplification - Final 07/02/23 09:39 Stool Enteric Bacteriology - Final 07/01/23 22:15 Stool Stool Occult Blood (BRITNI) - Final Occult Blood Positive Physical Exam Const oriented x3 and no apparent distress Resp normal respiratory effort GI soft to palpation and non-tender Assessment & Plan Assessment/Plan (1) Status post Eleno procedure: PLAN: Patient seems to be doing well. She is tolerating regular diet with minimal abdominal pain and she is comfortable sitting in her chair. She is having some stool from her colostomy. She is having gas as well. I recommend discharge home and follow-up with Dr. Dale in 1 week. She is okay to shower. She should not lift over 15 pounds for 4 weeks. Mychal Vazquez MD Pager: [facility] [address] [place] [address], [address] [place] [address] Office:
[2023-07-07] MEDS: dexAMETHasone 4 MG Tablet PO (08:49)
[2023-07-07] MEDS: Colestipol 1 GM TABLET PO ×2 (08:50→20:52)
[2023-07-07] MEDS: Lisinopril 20 MG Tablet PO (08:50)
[2023-07-07] MEDS: Montelukast 10 MG Tablet PO (08:50)
[2023-07-07] MEDS: Magnesium Sulfate 4gm/100mL 4 GM/100 ML IV.SOLN. IV (09:37)
[2023-07-07] MEDS: Acetaminophen 500 MG Tablet 1000 MG PO ×3 (09:38→20:52)
[2023-07-07] MEDS: Pantoprazole Sodium 40 MG Tablet PO ×2 (09:38→20:52)
[2023-07-07] MEDS: Potassium Chloride 10mEq/100mL 10 MEQ/100 ML IV.SOLN. 100 MEQ IV BOLUS ×4 (09:38→13:23)
[2023-07-07] MEDS: Magnesium Sulfate 2 GM in 0.9% Normal Saline (100mL Bag) 100 ML IV (15:13)
[2023-07-07] MEDS: 0.9% Normal Saline (1000mL) 1,000 ML 15 ML IV (20:44)
[2023-07-07] MEDS: Gabapentin 300 MG Capsule PO (20:45)
[2023-07-07] MEDS: Atorvastatin Calcium 10 MG Tablet PO (20:51)
[2023-07-07] MEDS: Magnesium Chloride 64 MG Delay Rel.Tablet 128 MG PO (20:51)
[2023-07-08] MEDS: Vancomycin 125 MG/5 ML Susp PO.SYRINGE PO ×3 (00:07→13:02)
[2023-07-08] MEDS: MELATONIN 3 MG TABLET PO (00:30)
[2023-07-08] MEDS: oxyCODONE 5 MG Tablet PO ×2 (00:50→09:45)
[2023-07-08 05:27] VITALS: BP 182/79; PULSE 65
[2023-07-08] MEDS: hydrALAZINE 20 MG/ML Vial 10 MG IV (05:27)
[2023-07-08 05:30] VITALS: BP 182/68; PULSE 65; RESP 16; TEMP 36.8; O2SAT 96
[2023-07-08] MEDS: Acetaminophen 500 MG Tablet 1000 MG PO ×2 (05:34→14:56)
[2023-07-08 05:39] VITALS: BMI 28.3
[2023-07-08] MEDS: Albuterol 2.5 MG/3 ML VIAL.NEB. INHALATION (07:10)
[2023-07-08 07:13] VITALS: PULSE 80; RESP 18
--- NOTE | 2023-07-08 07:47 | PCM.PN.HOSP ---
Reason for Visit Reason for Visit: Diagnoses Acidosis, unspecified (07/01/23) Noninfective gastroenteritis and colitis, unspecified (07/01/23) Vascular disorder of intestine, unspecified (07/01/23) Gastrointestinal hemorrhage, unspecified (07/01/23) Acute kidney failure, unspecified (07/01/23) Nausea with vomiting, unspecified (07/01/23) Diarrhea, unspecified (07/01/23) Encounter for antineoplastic chemotherapy (07/01/23) Colostomy status (07/01/23) Subjective Subjective Feels well. Tolerating PO. Stool firming up. Still with suprapubic abdominal pain, but overall, slightly better. Objective Data Objective Data Vital Signs: Vital Signs Temp Pulse Resp BP Pulse Ox O2 Del Method O2 Flow Rate 36.8 C 65 16 182/68 H 96 Room Air 2 07/08/23 05:30 07/08/23 05:30 07/08/23 05:30 07/08/23 05:30 07/08/23 05:30 07/08/23 05:30 07/05/23 19:00 FiO2 28 07/04/23 06:00 Oxygen Flow Rate (L/min) 2 Oxygen Delivery Method Room Air Weight: 72.5 kg Body Mass Index (BMI) 28.3 Intake & Output: Intake and Output for Last 24 Hours 07/06/23 07/07/23 07/08/23 23:59 23:59 23:59 Intake Total 2610.41 / 2860.41 2480.67 / 2480.67 350 / 350 Output Total 985 / 985 25 / 25 Balance 1625.41 / 1875.41 2480.67 / 2480.67 325 / 325 Lab / Micro Data 07/08/23 07:15 07/08/23 07:15 Labs: Laboratory Results - last 24 hr 07/07/23 06:03: Sodium 141, Potassium 2.7 L*, Chloride 111 H, Carbon Dioxide 23.0, Anion Gap 7, BUN 11, Creatinine 0.51 L, Estim Creat Clear Calc 40.83, Est GFR (MDRD) Af Amer 153, Est GFR (MDRD) Non-Af 126, BUN/Creatinine Ratio 21.7 H, Glucose 84, Calcium 8.2 L, Phosphorus 2.9, Magnesium 1.2 L Micro: Microbiology 07/01/23 18:57 Blood Culture (Wb) - Port Blood Culture - Final No growth in 5 days. 07/01/23 19:35 Blood Culture (Wb) - Port Blood Culture - Preliminary 07/01/23 21:30 Urine, Clean Catch Urine Culture - Final Culture exhibits no growth. 07/02/23 10:00 Stool Stool Lactoferrin - Final 07/02/23 10:00 Stool C. difficile GDH Antigen & Toxins - Final 07/02/23 10:00 Stool C. difficile DNA Amplification - Final 07/02/23 09:39 Stool Enteric Bacteriology - Final 07/01/23 22:15 Stool Stool Occult Blood (BRITNI) - Final Occult Blood Positive Physical Exam Const alert and no apparent distress HEENT head/scalp atraumatic and moist oral mucous membranes Resp normal respiratory effort, no retractions, no use of accessory muscles and clear to auscultation bilaterally Cardio regular rate, regular rhythm, S1 normal heart sound and S2 normal heart sound GI GI Narrative: midline incision intact. normal BS. ostomy with brown, soft stool. Assessment & Plan Assessment/Plan (1) Ischemic bowel disease: PLAN: Presents with abdominal pain and nausea and vomiting. s/p exploratory laparotomy with hemicolectomy and colostomy on . 07/07/2023 patient has tolerated diet follow up with general surgery. on pip/tazo since 07/01. completed abx through the . (2) Shock: PLAN: Present on admission 2/2 nausea/vomiting and ischemic colitis, Cdiff colitis Completed pressors Currently normotensive (3) Status post Eleno procedure: PLAN: mgmt per surgery. (4) C. difficile colitis: PLAN: Managed with rectal vancomycin initially switched to p.o. vancomycin Started on the , continue through the . PLAN: Plan Chronic conditions: Stage IIIb non-small cell lung cancer-S/p chemotherapy and radiation. PET scan in April 2023 showed progressive disease in right upper lung, and she is started on a second course of chemotherapy. On cisplatin and Gemzar. -To follow-up with oncology on outpatient basis. Anemia? Secondary to acute blood loss anemia following surgery patient was transfused with 3 units PRBC following surgery. Thrombocytopenia? Platelet count 65 chemo-induced thrombocytopenia monitoring with daily CBC with differential Essential hypertension? resume lisinopril now that she is normotensive (hypertensive at times) Dyslipidemia? On statin therapy COPD? Not in exacerbation aerosol treatment as needed DVT prophylaxis: Bilateral SCDs Disposition: Requested for PT OT eval and social science instructor to assist with discharge planning. Plan is for patient to be discharged home with home health on 07/08/2023
[2023-07-08 07:53] LABS: Absolute Lymphocyte Count 0.64 X10^3/uL (0.83-4.51); Absolute Neutrophil Count 3.8 X10^3/uL (2.0-7.7); Basophil# 0.01 X10^3/uL; Basophil% 0.2 % (0-1); Eosinophil# 0.08 X10^3/uL; Eosinophils% 1.7 % (0-5); Hematocrit 35.1 % (37-47); Hemoglobin 11.1 g/dL (12.0-15.0); Lymphocyte # 0.64 X10^3/ul (0.83-4.51); Lymphocyte % 13.2 % (19-41); Mean Corp Hgb Conc 31.6 g/dL (32-36); Mean Corpuscular Hgb 30.1 pg (27.0-32.0); Mean Corpuscular Volume 95.1 fL (81-99); Mean Platelet Vol. 11.2 fl (6.2-12.0); Monocyte# 0.25 X10^3/uL; Monocyte% 5.2 % (0-10); NRBC Flagged by Analyzer 0 % (0-5); Neutrophil % 78.5 % (47-70); Platelet Count 129 K/mm3 (150-450); RBC Distribution Width SD 48.3 fl (35.1-43.9); Red Blood Count 3.69 M/mm3 (4.2-5.4); White Blood Count 4.8 K/mm3 (4.4-11.0)
--- NOTE | 2023-07-08 08:07 | PN.SURG_ITS ---
Subjective Subjective Patient is a pleasant 73 y/o F I am following in conjunction with Dr. Dale. Patient denies any nausea, vomiting. She notes some abdominal discomfort of the lower abdomen and right lower quadrant discomfort. She continues to have air within her stoma and has very small amount of stool output. She voices she is r annette to go home. Objective Data Objective Data Vital Signs: Vital Signs Temp Pulse Resp BP Pulse Ox O2 Del Method O2 Flow Rate 98.2 F 65 16 182/68 H 96 Room Air 2 07/08/23 05:30 07/08/23 05:30 07/08/23 05:30 07/08/23 05:30 07/08/23 05:30 07/08/23 05:30 07/05/23 19:00 FiO2 28 07/04/23 06:00 Oxygen Flow Rate (L/min) 2 Oxygen Delivery Method Room Air Weight: 159 lb 13.362 oz Body Mass Index (BMI) 28.3 Intake & Output: Intake and Output for Last 24 Hours 07/06/23 07/07/23 07/08/23 23:59 23:59 23:59 Intake Total 2610.41 / 2860.41 2480.67 / 2480.67 350 / 350 Output Total 985 / 985 25 / 25 Balance 1625.41 / 1875.41 2480.67 / 2480.67 325 / 325 Lab / Micro Data 07/08/23 07:15 07/08/23 07:15 Labs: Laboratory Results - last 24 hr 07/08/23 07:15: WBC 4.8, RBC 3.69 L, Hgb 11.1 L, Hct 35.1 L, MCV 95.1, MCH 30.1, MCHC 31.6 L, RDW Std Deviation 48.3 H, RDW Coeff of Eloisa 14.0, Plt Count 129 L, MPV 11.2, Immature Gran % (Auto) 1.200 H, Neut % (Auto) 78.5 H, Lymph % (Auto) 13.2 L, [place] % (Auto) 5.2, Eos % (Auto) 1.7, Baso % (Auto) 0.2, Absolute Neuts (auto) 3.8, Absolute Lymphs (auto) 0.64 L, Nucleated RBC % 0 Micro: Microbiology 07/01/23 18:57 Blood Culture (Wb) - Port Blood Culture - Final No growth in 5 days. 07/01/23 19:35 Blood Culture (Wb) - Port Blood Culture - Preliminary 07/01/23 21:30 Urine, Clean Catch Urine Culture - Final Culture exhibits no growth. 07/02/23 10:00 Stool Stool Lactoferrin - Final 07/02/23 10:00 Stool C. difficile GDH Antigen & Toxins - Final 07/02/23 10:00 Stool C. difficile DNA Amplification - Final 07/02/23 09:39 Stool Enteric Bacteriology - Final 07/01/23 22:15 Stool Stool Occult Blood (BRITNI) - Final Occult Blood Positive Physical Exam Const alert, oriented x3 and no apparent distress GI GI Narrative: Abdomen- incision c/d/i. No erythema or infection noted. Atkinson intact. Ostomy with dark black stool within the stoma bag. Appliance intact. Assessment & Plan Assessment/Plan (1) Status post Eleno procedure: PLAN: Plan I have discussed this patient with Dr. Dale. From a surgical standpoint patient may be discharged. She seems to be tolerating her regular diet. Her pain is well controlled. She is having output from her stoma. Patient will need to follow-up in [address] Dale for staple removal. Patient states she will call our office herself to schedule the appointment. Patient would also like further direction and instruction on how to care for her ostomy prior to being discharged. Charges/Coding Visit Charges Inpatient E&M: 60230 Subs Hosp L1 (post-op; no charge)
[2023-07-08 08:10] LABS: Anion Gap 5 (5-15); BUN 9 mg/dL (7-18); BUN/Creat Ratio 13.8 RATIO (10-20); Calcium,Total 8.2 mg/dL (8.5-10.1); Chloride 109 mmol/L (98-107); Creatinine, Serum 0.65 mg/dL (0.55-1.02); EST Glomerular Filtration Rate 94 mL/min (>60); Est Glom Filt Rate - Afr Amer 114 mL/min (>60); Estimated Creatinine Clearance 40.83 ml/min; Glucose 72 mg/dL (74-106); Potassium 3.1 mmol/L (3.5-5.1); Sodium Level 142 mmol/L (136-145)
--- NOTE | 2023-07-08 08:30 | DCINST_ITS ---
Discharge Instructions Diet Discharge Diet: Light diet - advance as tolerated Activity Discharge Activity: May Drive (as long as not taking any narcotic pain medication) and May Shower Lifting Restrictions: No lifting greater than 15 pounds for 4 weeks Dressing / Incision Call your doctor if your incision/area has: Continuous Slow Oozing, Sudden Increased Bleeding, Increased Pain/ Swelling, Increased Redness, Foul Smelling Discharge and Swelling at the incision site Call your doctor if you observe: Fever of 101 or Higher Cleanse incision/area with: Soap & Water Follow Up Care Please Follow Up With: Margarita Dale MD When: Please contact our office at [phone] to schedule an appointment with Dr. Dale in 10 days Test Results: Test results from this visit will be discussed in further detail at your follow- up appointment, if applicable. Discharge Plan Admission Admit Date/Time: 07/01/23 21:01 Attending Provider: Jeff Romano Primary Care Provider: Hernandez Mcqueen Consulting Providers: Hernandez Mcqueen; Ervin Gan; Jerilyn Traylor; Margarita Dale; Poncho Bansal; Jovan Landin; Lee Peraza; Westley Mcgowan; Emma Killian NP; Mario Lowry Instructions Additional Instructions / Restrictions: Follow up with Dr. Dale 8 or 9days from date of surgery for staple removal. Discharge Orders/Prescriptions Prescriptions: No Action gabapentin 300 mg capsule 300 mg PO QHS budesonide-formoterol [Symbicort] 160-4.5 mcg/actuation HFA aerosol inhaler 2 puff inhalation BID dexamethasone 4 mg tablet 4 mg PO DAILY Qty: 20 0RF ondansetron 8 mg tablet,disintegrating 8 mg PO Q8H PRN (Reason: nausea and vomiting) Qty: 30 1RF prochlorperazine maleate 10 mg tablet 10 mg PO Q6H PRN (Reason: nausea and vomiting) Qty: 30 2RF lidocaine-prilocaine 2.5-2.5 % cream 1 applic topical ONCE PRN (Reason: PORT ACCESS) 30 Days Qty: 30 2RF albuterol sulfate 1 PUFF inhaler 1 puff IH PRN PRN (Reason: Sob &/Or Wheezing) montelukast 10 mg tablet 10 mg PO DAILY lisinopril 20 mg tablet 20 mg PO DAILY hydrocodone-acetaminophen 5-325 mg tablet 1 tab PO Q6H PRN PRN (Reason: Pain) 3 Days Qty: 10 0RF atorvastatin 10 mg tablet 10 mg PO QHS Qty: 90 3RF (DME) Hair prostethesis See Rx Instructions .Route .MEDSUPPLY Qty: 1 0RF Rx Instructions: As directed colestipol 1 gram tablet 1 g PO BID Qty: 60 1RF Referrals / Follow Up: Hernandez Mcqueen MD [Primary Care Provider] - Margarita Dale MD [Med Staff - Active Staff] - 07/18/23 (Please call to schedule an appointment for 10 days) Disposition Disposition (needs filled in before D/C Order can be placed): Home Health Service
--- NOTE | 2023-07-08 08:52 | WOUNDNOTE ---
In to change the colostomy appliance. patient states she is hoping to go home today. patient states she has had minimal discomfort. patient has been eating well. removed the appliance. small amount of soft unformed stool noted in the appliance. stoma remains edematous and pink. peristomal skin is intact. cleansed skin with warm water. pat dry. applied a new 2 piece flat cut to fit appliance with a paste ring. pt tolerated well. pt will be sent home with a few appliances until home health can get supplies for patient. pt denies further questions at this time.
[2023-07-08] MEDS: Lisinopril 20 MG Tablet PO (09:34)
[2023-07-08] MEDS: Magnesium Chloride 64 MG Delay Rel.Tablet 128 MG PO (09:34)
[2023-07-08] MEDS: Pantoprazole Sodium 40 MG Tablet PO (09:35)
[2023-07-08] MEDS: Colestipol 1 GM TABLET PO (09:35)
[2023-07-08] MEDS: dexAMETHasone 4 MG Tablet PO (09:35)
[2023-07-08] MEDS: Montelukast 10 MG Tablet PO (09:36)
[2023-07-08 09:48] VITALS: BP 128/64; PULSE 85; RESP 19; TEMP 36.3; O2SAT 100
--- NOTE | 2023-07-08 10:42 | PCM.DC.SUM ---
Providers Date of Admission: 07/01/23 Primary Care Physician: Dr. Hernandez Mcqueen MD Consultations 07/02/23 00:34 Consult: Manufacturing Process Engineer / Pulmonary Medicine Routine Consulting Provider: [facility] Reason for Consult: Vasopressors EMERGENT Consult: No Notified: Yes Date Notified: 07/02/23 Time Notified: 00:35 Method of Notification: Text 07/02/23 09:06 Consult: Gastroenterology Routine Consulting Provider: [facility] Reason for Consult: anemia,hematochezia EMERGENT Consult: No Notified: Yes Date Notified: 07/02/23 Time Notified: 09:06 Method of Notification: Text 07/02/23 13:08 Consult: General Surgery Routine Consulting Provider: Margarita Dale Reason for Consult: ? Ischemic Colitis EMERGENT Consult: Yes Notified: Yes Date Notified: 07/02/23 Time Notified: 13:09 Method of Notification: Verbal 07/02/23 17:49 Consult: Onc/Wound/caseworker protective services Routine Comment: Reason for Consult:: ostomy Reason For Visit: ABDOMINAL PAIN WITH NAUSEA AND VOMITING, Diagnosis Discharge Diagnosis (1) Ischemic bowel disease: Status: Acute Code(s): K55.9 - Vascular disorder of intestine, unspecified Plan: Presents with abdominal pain and nausea and vomiting. s/p exploratory laparotomy with hemicolectomy and colostomy on . 07/07/2023 patient has tolerated diet follow up with general surgery. on pip/tazo since 07/01. completed abx through the . (2) Shock: Status: Acute Code(s): R57.9 - Shock, unspecified Plan: Present on admission 2/2 nausea/vomiting and ischemic colitis, Cdiff colitis Completed pressors Currently normotensive (3) Status post Eleno procedure: Status: Acute Code(s): Z93.3 - Colostomy status Plan: mgmt per surgery. (4) C. difficile colitis: Status: Acute Code(s): A04.72 - Enterocolitis due to Clostridium difficile, not specified as recurrent Plan: Managed with rectal vancomycin initially switched to p.o. vancomycin Started on the , continue through the . Plan Chronic conditions: Stage IIIb non-small cell lung cancer-S/p chemotherapy and radiation. PET scan in April 2023 showed progressive disease in right upper lung, and she is started on a second course of chemotherapy. On cisplatin and Gemzar. -To follow-up with oncology on outpatient basis. Anemia? Secondary to acute blood loss anemia following surgery patient was transfused with 3 units PRBC following surgery. Thrombocytopenia? Platelet count 65 chemo-induced thrombocytopenia monitoring with daily CBC with differential Essential hypertension? resume lisinopril now that she is normotensive (hypertensive at times) Dyslipidemia? On statin therapy COPD? Not in exacerbation aerosol treatment as needed DVT prophylaxis: Bilateral SCDs Disposition: Requested for PT OT eval and social services manager to assist with discharge planning. Plan is for patient to be discharged home with home health on 07/08/2023 Medications at Discharge Home Medications albuterol sulfate 90 mcg/actuation aerosol inhaler 1 puff IH PRN PRN Sob &/Or Wheezing 04/17/19 atorvastatin 10 mg tablet 10 mg PO QHS #90 tabs 04/17/21 montelukast 10 mg tablet 10 mg PO DAILY 08/21/22 lisinopril 20 mg tablet 20 mg PO DAILY 12/06/22 Hair prostethesis #1 ea 01/17/23 budesonide-formoterol HFA 160 mcg-4.5 mcg/actuation aerosol inhaler (Symbicort) 2 puff inhalation BID 03/18/23 gabapentin 300 mg capsule 300 mg PO QHS 03/18/23 colestipol 1 gram tablet 1 g PO BID #60 tabs 04/16/23 dexamethasone 4 mg tablet 4 mg PO DAILY #20 tabs 06/18/23 lidocaine-prilocaine 2.5 %-2.5 % topical cream 1 applic topical ONCE PRN PORT ACCESS 30 days #30 grams 06/19/23 ondansetron 8 mg disintegrating tablet 8 mg PO Q8H PRN nausea and vomiting #30 tabs 06/19/23 prochlorperazine maleate 10 mg tablet 10 mg PO Q6H PRN nausea and vomiting #30 tabs 06/19/23 acetaminophen 500 mg tablet 1,000 mg (2 x 500 mg) PO Q8 PRN pain #0 tabs 07/08/23 oxycodone 5 mg tablet 5 - 10 mg (1 - 2 x 5 mg) PO Q4H PRN PRN Pain Score 6-10 3 days #18 tabs 07/08/23 vancomycin 125 mg capsule 125 mg PO Q6H #24 caps 07/08/23 Hospital Course Operations - (exploratory laparotomy, left hemicolectomy, transverse colostomy) Summary of Care Provided Minutes Spent on Discharge: 35 Weight / BMI Weight Weight: 72.5 kg Body Mass Index (BMI) 28.3 ABG / Lab / Microbiology Data 07/08/23 07:15 07/08/23 07:15 Laboratory: Laboratory Results - last 24 hr 07/08/23 07:15: WBC 4.8, RBC 3.69 L, Hgb 11.1 L, Hct 35.1 L, MCV 95.1, MCH 30.1, MCHC 31.6 L, RDW Std Deviation 48.3 H, RDW Coeff of Eloisa 14.0, Plt Count 129 L, MPV 11.2, Immature Gran % (Auto) 1.200 H, Neut % (Auto) 78.5 H, Lymph % (Auto) 13.2 L, Mclennan % (Auto) 5.2, Eos % (Auto) 1.7, Baso % (Auto) 0.2, Absolute Neuts (auto) 3.8, Absolute Lymphs (auto) 0.64 L, Nucleated RBC % 0, Sodium 142, Potassium 3.1 L, Chloride 109 H, Carbon Dioxide 28.0, Anion Gap 5, BUN 9, Creatinine 0.65, Estim Creat Clear Calc 40.83, Est GFR (MDRD) Af Amer 114, Est GFR (MDRD) Non-Af 94, BUN/Creatinine Ratio 13.8, Glucose 72 L, Calcium 8.2 L Microbiology: Microbiology 07/01/23 19:35 Blood Culture (Wb) - Port Blood Culture - Preliminary 07/01/23 18:57 Blood Culture (Wb) - Port Blood Culture - Final No growth in 5 days. 07/01/23 21:30 Urine, Clean Catch Urine Culture - Final Culture exhibits no growth. 07/02/23 10:00 Stool Stool Lactoferrin - Final 07/02/23 10:00 Stool C. difficile GDH Antigen & Toxins - Final 07/02/23 10:00 Stool C. difficile DNA Amplification - Final 07/02/23 09:39 Stool Enteric Bacteriology - Final 07/01/23 22:15 Stool Stool Occult Blood (BRITNI) - Final Occult Blood Positive D/C Instructions Discharge Diet: Light diet - advance as tolerated Call your doctor if your incision/area has: Continuous Slow Oozing, Sudden Increased Bleeding, Increased Pain/ Swelling, Increased Redness, Foul Smelling Discharge and Swelling at the incision site Call your doctor if you observe: Fever of 101 or Higher Cleanse incision/area with: Soap & Water Please Follow Up With: Margarita Dale MD When: Please contact our office at [phone] to schedule an appointment with Dr. Dale in 10 days Meaningful Use Info Meaningful Use Diagnoses (Choose all that apply): None applicable Discharge Plan Admission Admit Date/Time: 07/01/23 21:01 Primary Reason for Your Visit: ischemic colitis Attending Provider: Jeff Romano Primary Care Provider: Hernandez Mcqueen Consulting Providers: Hernandez Mcqueen; Ervin Gan; Jerilyn Traylor; Margarita Dale; Poncho Bansal; Jovan Landin; Lee Peraza; Westley Mcgowan; Emma Killian NP; Mario Lowry Instructions Additional Instructions / Restrictions: Follow up with Dr. Dale 8 or 9days from date of surgery for staple removal. Discharge Orders/Prescriptions Prescriptions: New acetaminophen 500 mg Tablet 1,000 mg PO Q8 PRN (Reason: pain) Qty: 0 0RF oxycodone 5 mg Tablet 5 - 10 mg PO Q4H PRN PRN (Reason: Pain Score 6-10) 3 Days Qty: 18 0RF vancomycin 125 mg capsule 125 mg PO Q6H Qty: 24 0RF Continued gabapentin 300 mg capsule 300 mg PO QHS budesonide-formoterol [Symbicort] 160-4.5 mcg/actuation HFA aerosol inhaler 2 puff inhalation BID dexamethasone 4 mg tablet 4 mg PO DAILY Qty: 20 0RF ondansetron 8 mg tablet,disintegrating 8 mg PO Q8H PRN (Reason: nausea and vomiting) Qty: 30 1RF prochlorperazine maleate 10 mg tablet 10 mg PO Q6H PRN (Reason: nausea and vomiting) Qty: 30 2RF lidocaine-prilocaine 2.5-2.5 % cream 1 applic topical ONCE PRN (Reason: PORT ACCESS) 30 Days Qty: 30 2RF albuterol sulfate 1 PUFF inhaler 1 puff IH PRN PRN (Reason: Sob &/Or Wheezing) montelukast 10 mg tablet 10 mg PO DAILY lisinopril 20 mg tablet 20 mg PO DAILY atorvastatin 10 mg tablet 10 mg PO QHS Qty: 90 3RF (DME) Hair prostethesis See Rx Instructions .Route .MEDSUPPLY Qty: 1 0RF Rx Instructions: As directed colestipol 1 gram tablet 1 g PO BID Qty: 60 1RF Discontinued hydrocodone-acetaminophen 5-325 mg tablet 1 tab PO Q6H PRN PRN (Reason: Pain) 3 Days Qty: 10 0RF Referrals / Follow Up: [facility] [Provider Group] - 07/26/23 12:30 pm *[facility] [Provider Group] - 07/09/23 8:45 am Hernandez Mcqueen MD [Primary Care Provider] - Within 2 Weeks Margarita Dale MD [Med Staff - Active Staff] - 07/18/23 (Please call to schedule an appointment for 10 days) Disposition Disposition (needs filled in before D/C Order can be placed): Home Health Service Charges/Coding Visit Charges Inpatient E&M: 20314 Disch Hosp >30min
--- NOTE | 2023-07-08 11:10 | PHA.DC_ITS ---
Pharmacy [facility] has performed discharge medication reconciliation and counseling for this patient. The patient's discharge medication list was reviewed for discrepancies and discrepancies were resolved. The patient was counseled on the following discharge medications and changes in medications for homegoing were reviewed. The Reason for Use, instructions for use, and potential side effects were reviewed for all new medications. The patient's questions regarding all of their medications were answered. 1. Vancomycin 125 mg PO Q6H x 24 caps 2. Oxycodone 5-20 mg PO Q4H PRN pain 6-10 3. Acetaminophen 1000 mg Q8H PRN pain The patient was able to verbally demonstrate an understanding of their discharge medications. Medications at Discharge Home Medications albuterol sulfate 90 mcg/actuation aerosol inhaler 1 puff IH PRN PRN Sob &/Or Wheezing 04/17/19 atorvastatin 10 mg tablet 10 mg PO QHS #90 tabs 04/17/21 montelukast 10 mg tablet 10 mg PO DAILY 08/21/22 lisinopril 20 mg tablet 20 mg PO DAILY 12/06/22 Hair prostethesis #1 ea 01/17/23 budesonide-formoterol HFA 160 mcg-4.5 mcg/actuation aerosol inhaler (Symbicort) 2 puff inhalation BID 03/18/23 gabapentin 300 mg capsule 300 mg PO QHS 03/18/23 colestipol 1 gram tablet 1 g PO BID #60 tabs 04/16/23 dexamethasone 4 mg tablet 4 mg PO DAILY #20 tabs 06/18/23 lidocaine-prilocaine 2.5 %-2.5 % topical cream 1 applic topical ONCE PRN PORT ACCESS 30 days #30 grams 06/19/23 ondansetron 8 mg disintegrating tablet 8 mg PO Q8H PRN nausea and vomiting #30 tabs 06/19/23 prochlorperazine maleate 10 mg tablet 10 mg PO Q6H PRN nausea and vomiting #30 tabs 06/19/23 acetaminophen 500 mg tablet 1,000 mg (2 x 500 mg) PO Q8 PRN pain #0 tabs 07/08/23 oxycodone 5 mg tablet 5 - 10 mg (1 - 2 x 5 mg) PO Q4H PRN PRN Pain Score 6-10 3 days #18 tabs 07/08/23 vancomycin 125 mg capsule 125 mg PO Q6H #24 caps 07/08/23
--- NOTE | 2023-07-08 11:41 | CASEMGMT ---
Addendum entered by Ashlee Zamora 07/08/23 16:20: TC to [facility], no PA or charge for pt po vancomycin per pharmacy. Addendum entered by Ashlee Zamora 07/08/23 14:03: [facility] needs further documentation on the need for the shower chair. Hospitalist request pt follow up with PCP for this. Updated pt. Addendum entered by Ashlee Zamora 07/08/23 13:11: Attached ostomy supply form to referral to [facility] and sent via [facility]. Addendum entered by Ashlee Zamora 07/08/23 11:49: Updated Palliative Care that pt will dc today. Original Note: Pt to dc today. [facility] JARED CM into pt room, pt aware of dc. She is aware that [facility] will be in touch with her on time to visit. She is also aware that the shower chair rx was sent to [facility] and will be delivered to the home. Pt denies further homegoing needs at this time. Attached dc instructions and summary to [facility] via [facility] at this time.
--- NOTE | 2023-07-08 12:16 | CASEMGMT ---
Social Work SW met with pt to inquire about advance directives. Pt states she has not yet obtained addresses and phone numbers for her designees. SW provided pt with a Advance Directive Rack Card to follow up with SW as an outpatient. Pt expressing understanding. HARPREET Arteaga
[2023-07-08 14:57] VITALS: BP 160/75; PULSE 73; RESP 14; TEMP 36; O2SAT 97
[2023-07-08] MEDS: 0.9% Saline Lock 10 ML Syringe IV (15:09)
== END 2023-07-08 15:42 | disposition home health service (06) | DRG 329 ==
LOC: ED 20:13 → ICU 07-02 07:04 → MS3 07-06 15:05
PROVIDERS: Anesthesiology; Family Medicine; Internal Medicine; Internal Medicine Critical Care Medicine; Internal Medicine Gastroenterology; Surgery; Admitting Provider Family Medicine; Emergency Provider Emergency Medicine; PCP Family Medicine
PROC: 0DTG0ZZ Resection of Left Large Intestine, Open Approach (ICD-10-PCS; CPT 49000; principal; 2023-07-02 13:45)
DX: A04.72 Enterocolitis due to Clostridium difficile, not specified as recurrent (principal); R57.8 Other shock; N17.9 Acute kidney failure, unspecified; E87.20 Acidosis, unspecified; D62 Acute posthemorrhagic anemia; C34.11 Malignant neoplasm of upper lobe, right bronchus or lung; D69.59 Other secondary thrombocytopenia; E86.0 Dehydration; J44.9 Chronic obstructive pulmonary disease, unspecified; I70.0 Atherosclerosis of aorta; I10 Essential (primary) hypertension; E78.00 Pure hypercholesterolemia, unspecified; R19.5 Other fecal abnormalities; G89.3 Neoplasm related pain (acute) (chronic); T45.1X5A Adverse effect of antineoplastic and immunosuppressive drugs, initial encounter; Z66 Do not resuscitate; Z90.49 Acquired absence of other specified parts of digestive tract; Z79.899 Other long term (current) drug therapy; Z86.16 Personal history of COVID-19; Z87.891 Personal history of nicotine dependence
CPT/HCPCS: 36415; 36591; 71045; 74174; 74177; 80048; 80053; 81001; 82274; 83605; 83630; 83735; 84100; 84484; 85014; 85018; 85025; 85610; 85652; 85730; 86140; 86850; 86900; 86901; 86920; 87040; 87077; 87086; 87493; 87506; 88305; 88307; 93005; 94640; 94668; 94762; 97110; 97162; 97166; 97530; 97535; 99252; 99285; J7030; J7040; J7050; P9016; Q9967; A4216; G0463; J2405

== ENCOUNTER → 2023-07-26 | Outpatient (CLI) | payer MEDICARE, MEDICAID, SELFPAY ==
[2023-07-26 14:43] LABS: Absolute Lymphocyte Count 1.04 X10^3/uL (0.83-4.51); Absolute Neutrophil Count 7.3 X10^3/uL (2.0-7.7); Basophil# 0.06 X10^3/uL; Basophil% 0.6 % (0-1); Eosinophil# 0.09 X10^3/uL; Hematocrit 35.4 % (37-47); Hemoglobin 10.7 g/dL (12.0-15.0); Lymphocyte # 1.04 X10^3/ul (0.83-4.51); Lymphocyte % 11.2 % (19-41); Mean Corp Hgb Conc 30.2 g/dL (32-36); Mean Corpuscular Hgb 30.1 pg (27.0-32.0); Mean Corpuscular Volume 99.4 fL (81-99); Mean Platelet Vol. 10.6 fl (6.2-12.0); Monocyte# 0.65 X10^3/uL; NRBC Flagged by Analyzer 0 % (0-5); Neutrophil # 7.25 X10^3/uL (2.7-7.7); Platelet Count 226 K/mm3 (150-450); RBC Distribution Width CV 16.5 % (11.6-14.6); RBC Distribution Width SD 60.6 fl (35.1-43.9); Red Blood Count 3.56 M/mm3 (4.2-5.4); White Blood Count 9.3 K/mm3 (4.4-11.0)
[2023-07-26 14:47] LABS: Erythrocyte Sedimentation Rate 15 mm/hr (0-30)
[2023-07-26 15:08] LABS: Vitamin B12 396 pg/mL (211-911)
[2023-07-26 15:48] LABS: ALB/GLOB Ratio 0.9 RATIO (0.9-2.4); AST(SGOT) 21 U/L (15-37); Alanine Aminotransfer ALT/SGPT 26 U/L (13-56); Albumin, Serum 2.9 g/dL (3.2-5.0); Alkaline Phosphatase 96 U/L (45-117); Anion Gap 5 (5-15); BUN 21 mg/dL (7-18); CRP 9.01 mg/L (0.0-3.0); Calcium,Total 9.1 mg/dL (8.5-10.1); Chloride 107 mmol/L (98-107); Creatinine, Serum 0.75 mg/dL (0.55-1.02); EST Glomerular Filtration Rate 80 mL/min (>60); Est Glom Filt Rate - Afr Amer 97 mL/min (>60); Ferritin 43 ng/mL (8-252); Globulin 3.4 g/dL (2.2-4.2); Glucose 89 mg/dL (74-106); Iron 87 ug/dL (50-170); Iron Binding Capacity,Total 381 ug/dL (250-450); Magnesium 1.7 mg/dL (1.6-2.6); PERCENT IRON SATURATION 22.8 % (15.0-55.0); Protein, Total 6.3 g/dL (6.4-8.2); Sodium Level 139 mmol/L (136-145)
[2023-08-05 17:07] LABS: Copper, Serum or Plasma 150 ug/dL (80-158)
== END | disposition home or self-care (01) ==
PROVIDERS: PCP Family Medicine; Referring Provider Internal Medicine Gastroenterology; Visit Provider Internal Medicine Gastroenterology
DX: E78.5 Hyperlipidemia, unspecified (principal); Z93.3 Colostomy status; A04.72 Enterocolitis due to Clostridium difficile, not specified as recurrent; D64.9 Anemia, unspecified
CPT/HCPCS: 36415; 80053; 82525; 82607; 82728; 82746; 83540; 83550; 83735; 85025; 85652; 86140

== ENCOUNTER → 2023-08-07 | Outpatient (CLI) | payer MEDICARE, SELFPAY ==
--- NOTE | 2023-08-07 16:36 | RAD_ITS ---
STUDY: X-RAY CHEST REASON FOR EXAM: Female, 73 years old. SOB TECHNIQUE: Frontal and lateral views of the chest. COMPARISON: 07/01/2023. FINDINGS: Stable right indwelling central line. There is hyperinflation of the lungs consistent with chronic obstructive lung disease (COPD). No infiltrates or effusions. There is no demonstrated pleural abnormality. Normal size heart. Normal mediastinum and rosamaria. Normal visualized pulmonary arteries. There is atherosclerotic calcification of the aortic arch with tortuosity. Normal visualized thoracic spine. Normal visualized ribs, clavicles, and shoulders. There is no demonstrated abnormality of the visualized soft tissue structures of the upper abdomen. RAD/Chest PA and Lateral IMPRESSION: There are findings consistent with COPD. There is no evidence of acute chest disease. Electronically Signed: Jacobo Allen MD at 17:52 EDT ,
[2023-08-07 17:59] LABS: Absolute Lymphocyte Count 0.64 X10^3/uL (0.83-4.51); Absolute Neutrophil Count 4.5 X10^3/uL (2.0-7.7); Basophil# 0.02 X10^3/uL; Basophil% 0.3 % (0-1); Eosinophil# 0.15 X10^3/uL; Eosinophils% 2.6 % (0-5); Hematocrit 31.3 % (37-47); Hemoglobin 9.2 g/dL (12.0-15.0); Lymphocyte # 0.64 X10^3/ul (0.83-4.51); Mean Corp Hgb Conc 29.4 g/dL (32-36); Mean Corpuscular Volume 105.4 fL (81-99); Mean Platelet Vol. 10.5 fl (6.2-12.0); Monocyte# 0.43 X10^3/uL; Monocyte% 7.4 % (0-10); NRBC Flagged by Analyzer 0 % (0-5); Neutrophil # 4.51 X10^3/uL (2.7-7.7); Neutrophil % 77.2 % (47-70); POSITIVE MORPHOLOGY YES; Platelet Count 212 K/mm3 (150-450); RBC Distribution Width CV 18.9 % (11.6-14.6); RBC Distribution Width SD 71.9 fl (35.1-43.9); Red Blood Count 2.97 M/mm3 (4.2-5.4); White Blood Count 5.8 K/mm3 (4.4-11.0)
[2023-08-07 18:07] LABS: Differential Indicated SCAN CRITERIA MET
[2023-08-07 18:25] LABS: Platelet Estimate ADEQUATE (ADEQ)
[2023-08-07 18:26] LABS: Anisocytosis 1+; Hypochromasia RARE; Macrocytosis 1+; Ovalocyte RARE; Red Cell Morphology N CHROM NORMAL (NORM C&C)
[2023-08-07 18:32] LABS: ALB/GLOB Ratio 0.9 RATIO (0.9-2.4); AST(SGOT) 20 U/L (15-37); Alanine Aminotransfer ALT/SGPT 21 U/L (13-56); Albumin, Serum 2.9 g/dL (3.2-5.0); Alkaline Phosphatase 90 U/L (45-117); Anion Gap 5 (5-15); BUN 17 mg/dL (7-18); Calcium,Total 9.4 mg/dL (8.5-10.1); Chloride 109 mmol/L (98-107); Creatinine, Serum 0.85 mg/dL (0.55-1.02); EST Glomerular Filtration Rate 69 mL/min (>60); Est Glom Filt Rate - Afr Amer 84 mL/min (>60); Globulin 3.2 g/dL (2.2-4.2); Glucose 120 mg/dL (74-106); Potassium 3.8 mmol/L (3.5-5.1); Protein, Total 6.1 g/dL (6.4-8.2); Sodium Level 142 mmol/L (136-145); Troponin-I HS 24 pg/mL (3.0-54.0)
== END | disposition home or self-care (01) ==
PROVIDERS: PCP Family Medicine; Referring Provider Family Medicine; Visit Provider Family Medicine
DX: R06.02 Shortness of breath (principal); R00.0 Tachycardia, unspecified
CPT/HCPCS: 36415; 71046; 80053; 84484; 85025

== ENCOUNTER 2023-08-21 15:40 | Inpatient (IN) | payer MEDICARE, SELFPAY ==
[2023-08-21] VITALS (17 sets, daily range): BP systolic 112–149; BP diastolic 57–101; PULSE 73–134; RESP 12–23; TEMP 35.8–37.1; O2SAT 89–100; BMI 24.0; BMI 25.1
--- NOTE | 2023-08-21 16:08 | EDS_ITS ---
HPI History of Present Illness Chief Complaint: GI Bleed Detail of Chief Complaint: , Brown-green stool, dyspnea, pseudomembranous enterocolitis Informant: patient, spouse/S.O. and other (Dr. Zaragoza) Onset/Context/Timing Onset: Days (Symptoms started approximately 3 to 4 days ago.) Context: Sudden Onset Timing: Continuous and Waxes and wanes Quality: Depends on activity Location: GI bleed and pseudomembranous colitis Current Severity: Moderate Maximum Severity: Moderate Worsened by: Unknown possibly Pseudomonas under colitis Relieved by: Nothing Associated Symptoms Associated Symptoms: Pica, dyspnea, dyspnea on exertion, fatigue and lack of energy Narrative Narrative: Patient is a 73-year-old woman who has stage IIIb non-small cell carcinoma of the lung that was diagnosed September 2022. She underwent emergent hemicolectomy with placement of colostomy due to presumed send member send colitis causing ischemic bowel. Patient had a prolonged hospital stay. Patient was recently seen by Dr. Zaragoza's nurse practitioner. She was seen today by her oncologist Dr. Gonzalez.. Patient's hemoglobin is 5.1. Dr. Zaragoza and for me that she has a positive stool culture for C. difficile. She is not present on vancomycin. She denies fever, chills night sweats. She does have a port right subclavian region. She denies headache, visual, ocular auditory symptoms. She does endorse thirst and dry mouth. She does endorse lightheadedness. She denies chest pain or chest pressure. She denies lung problems. Other than the cancer. She denies abdominal pain. She does have brown maroon-colored stool. She denies dysuria, frequency, urgency or hematuria. She does endorse decreased urine output. Prior similar symptoms: No Recent Illness/Hospitalization: Yes [facility] Medical History Alopecia Arthritis Asthma Back pain Benign neoplasm of colon Cancer Cancer related pain Cardiology follow-up encounter Chronic constipation Contact with and (suspected) exposure to other viral communicable diseases COPD (chronic obstructive pulmonary disease) COVID-19 Easy bruising Encounter for education Essential hypertension Fatigue Former smoker Gastric reflux Generalized weakness High cholesterol History of echocardiogram History of edema History of irregular heartbeat History of stress test Hyperlipidemia Hypertension Hypokalemia Mild aortic stenosis Nicotine dependence Pneumonia Restless legs Shortness of breath on exertion Wears dentures Wears glasses Home Medications albuterol sulfate 90 mcg/actuation aerosol inhaler 1 puff IH PRN PRN Sob &/Or Wheezing 04/17/19 [History Last Taken Unknown] atorvastatin 10 mg tablet 10 mg PO QHS #90 tabs 04/17/21 [Rx Last Taken Unknown] montelukast 10 mg tablet 10 mg PO DAILY 08/21/22 [History Last Taken Unknown] lisinopril 20 mg tablet 20 mg PO DAILY 12/06/22 [History Last Taken 06/20/23] Hair prostethesis #1 ea 01/17/23 [Rx Last Taken Unknown] budesonide-formoterol HFA 160 mcg-4.5 mcg/actuation aerosol inhaler (Symbicort) 2 puff inhalation BID 03/18/23 [History Last Taken Unknown] gabapentin 300 mg capsule 300 mg PO QHS 03/18/23 [History Last Taken Unknown] colestipol 1 gram tablet 1 g PO BID #60 tabs 04/16/23 [Rx Last Taken Unknown] dexamethasone 4 mg tablet 4 mg PO DAILY #20 tabs 06/18/23 [Rx Last Taken Unknown] ondansetron 8 mg disintegrating tablet 8 mg PO Q8H PRN nausea and vomiting #30 tabs 06/19/23 [Rx Last Taken Unknown] prochlorperazine maleate 10 mg tablet 10 mg PO Q6H PRN nausea and vomiting #30 tabs 06/19/23 [Rx Last Taken Unknown] acetaminophen 500 mg tablet 1,000 mg (2 x 500 mg) PO Q8 PRN pain #0 tabs 07/08/23 [Rx Last Taken Unknown] oxycodone 5 mg tablet 5 - 10 mg (1 - 2 x 5 mg) PO Q4H PRN PRN Pain Score 6-10 3 days #18 tabs 07/08/23 [Rx Last Taken Unknown] vancomycin 125 mg capsule 125 mg PO Q6H #24 caps 07/08/23 [Rx Last Taken Unknown] pantoprazole 40 mg tablet,delayed release 40 mg PO DAILY #30 tabs 07/25/23 [Rx Last Taken Unknown] lidocaine-prilocaine 2.5 %-2.5 % topical cream 1 applic topical ONCE PRN PORT ACCESS 30 days #30 grams 08/21/23 [Rx Last Taken Unknown] Allergy/AdvReac Type Severity Reaction Status Date / Time watermelon Allergy Intermediate Hives Verified 08/21/23 15:41 Family History Father Cancer spinal Mother Alzheimer's disease Brother Pacemaker Surgical History History of amputation of finger of right hand History of appendectomy History of breast surgery History of cataract extraction History of creation of ostomy History of cystoscopy History of D&C History of hysterectomy History of toe surgery History of tonsillectomy Status post Eleno procedure Social History household members: spouse pets and animals: Yes (dogs) Smoking Status: Former smoker how long ago did patient quit smokin alcohol intake: former substance use type: does not use ROS ROS ED Constitutional Constitutional ED: Reports weight loss; Denies chills, fever(s), subjective or sweats Eyes Eyes: Denies blurry vision, change in vision or diplopia ENT ENT ED: Denies ear pain, rhinorrhea or sore throat Cardiovascular Cardiovascular: Denies chest pain, orthopnea, palpitations or paroxysmal nocturnal dyspnea Respiratory/Chest Respiratory/Chest: Reports dyspnea and dyspnea on exertion; Denies cough, orthopnea or paroxysmal nocturnal dyspnea Gastrointestinal Gastrointestinal: Reports other Details: Red-brown stool. ; Denies abdominal pain, diarrhea, melena, nausea or vomiting Genitourinary Genitourinary ED: Denies dysuria, hematuria or urinary frequency Musculoskeletal Musculoskeletal: Denies arthralgias, back pain, myalgias or neck pain Integumentary Denies rash Neurologic Neurologic: Reports weakness; Denies headache(s) or paresthesias Psychiatric Psychiatric: Denies anxiety Endocrine Endocrinology: Denies cold intolerance or heat intolerance Hematologic/Lymphatic Hematologic/Lymphatic: Reports systems reviewed and no addt'l complaints, except as documented, as per HPI and other Details: Is on no anticoagulant or antithrombotic including aspirin. Allergic/Immunologic Allergic/Immunologic ED: Denies mouth swelling or tongue swelling EXAM Physical Exam Const Vital Signs: 08/21/23 15:41 08/21/23 15:45 08/21/23 16:13 Temperature 96.5 F L Temperature Source Temporal Pulse Rate 106 H Respiratory Rate 18 Respiratory Pattern Normal Blood Pressure 122/57 H Blood Pressure Mean 78 Pulse Ox 95 Oxygen Delivery Method Room Air 08/21/23 15:45 08/21/23 16:41 Temperature 98.8 F Temperature Source Oral Pulse Rate 102 H 99 Respiratory Rate 18 20 H Respiratory Pattern Blood Pressure 133/70 H 133/66 H Blood Pressure Mean 91 88 Pulse Ox 94 92 Oxygen Delivery Method Room Air Room Air Positive well nourished and well developed Constitutional Narrative: Appears pale. Vital signs are marked for tachycardia. General Appearance ED: well developed, NAD and pallor HEENT Reports dry mucous membranes HEENT Narrative: Head is atraumatic normocephalic. Ears normal. Nares patent. Posterior pharynx out erythema or exudate. Mouth ED: Yes dry mucous membranes Mouth: dry mucous membranes Eyes PERRL and EOMs intact bilaterally General Eye ED: Negative for pale conjunctiva or scleral icterus Neck no lymphadenopathy, supple and no JVD Chest Wall inspection of chest normal and palpation of chest normal Resp normal respiratory effort and clear to auscultation bilaterally Cardio regular rhythm, S1 normal heart sound, S2 normal heart sound and no murmurs Rate: tachycardic GI GI Narrative: Has colostomy. Stool is maroon brown-red. The ostomy site appears on remarkable. Abdomen is slightly tympanitic. There is no tenderness. Bowel sounds are slightly increased. There is no palp pulsatile mass. Back/Spine no CVA tenderness Thoracic Spine / Upper Back: Negative for thoracic spinal tenderness Lumbar Spine / Lower Back: Negative for lumbar spinal tenderness Extremity normal to inspection General Extremety ED: Negative for edema or tenderness General Extremity: Negative for edema Neuro oriented x3, CN's II-XII intact bilaterally and no sensory deficits noted Sensorium / Orientation: alert Sensory Exam: sensory level loss detected Psych mental status grossly normal Skin no rashes or lesions noted, no wounds and No skin turgor normal General Skin Exam: pallor; Negative for elasticity normal or jaundice MDM MDM MDM Narrative Medical decision making narrative: Patient presents with symptoms of anemia. Clinically her hemoglobin is less than 6 send she has no erythema the creases of her palm. Suspect patient's tachycardia is due to GI blood loss. This is complicated by the fact that she has symptoms under colitis. She was started on vancomycin. She was typed and crossed for 3 units of blood. She will receive blood. EKG was obtained to rule out any acute ischemic changes. Dr. Zaragoza is aware of the patient. She will follow the patient. She requested consult with Dr. Morris. Lab Data Attestation: I reviewed the patient's lab results. Lab results narrative: H&H today is 5.1 and 18.1 with an MCV of 96.8. H&H on August 07 was 9.2 and 31.3 with an MCV of 105. Basic metabolic panel is unremarkable. Albumin is low at 2.7. Coags are pending. Basic metabolic panel is remarkable for an elevated CO2 from baseline. BUN and creatinine are normal. PT/INR PTT are normal. Labs: Laboratory Results - last 24 hr 08/21/23 16:43 PT 13.4 INR 1.0 APTT 26.1 Sodium 142 Potassium 4.0 Chloride 107 Carbon Dioxide 33.0 H Anion Gap 2 L BUN 18 Creatinine 0.92 Estim Creat Clear Calc 44.38 Est GFR (MDRD) Af Amer 77 Est GFR (MDRD) Non-Af 64 BUN/Creatinine Ratio 19.6 Glucose 108 H Calcium 8.9 Crossmatch See Detail EKG Initial EKG: Attestation: I personally reviewed and interpreted this EKG as follows: Interpretation: Sinus Tachycardia (Rate of 103. There is a premature ventricular complex noted. Parable is under 60 ms. Cures duration 88 ms. QT durations 148 ms. [place] is normal. There is an ossific ST-T wave changes.) Management Discussion w/another healthcare provider: Hospitalist and Revising Clerk (Case was discussed with Dr. Zaragoza who requested consult with Dr. Morris. Dr. Morris was paged. He was made aware of the patient and reason for consult.) Treatment and Re-Evaluation :: Was made aware the patient at 1620. He will see the patient. Discharge Plan Dx/Rx/DC Orders Clinical Impression: Acute GI bleeding, Essential hypertension, Presence of colostomy, Anemia due to GI blood loss, Blood transfusion during current hospitalization, Pseudomemb ranous enterocolitis, Symptomatic anemia, Signs and symptoms of anemia, Sinus tachycardia, Non-small cell carcinoma of left lung, stage 3 Disposition Disposition: [facility]
[2023-08-21] MEDS: Vancomycin 125 MG/5 ML Susp PO.SYRINGE PO ×2 (16:17→21:34)
[2023-08-21 16:49] LABS: Absolute Lymphocyte Count 0.66 X10^3/uL (0.83-4.51); Basophil# 0.02 X10^3/uL; Basophil% 0.5 % (0-1); Eosinophil# 0.16 X10^3/uL; Eosinophils% 3.6 % (0-5); Lymphocyte # 0.66 X10^3/ul (0.83-4.51); Lymphocyte % 14.9 % (19-41); Mean Corp Hgb Conc 27.2 g/dL (32-36); Mean Corpuscular Hgb 26.9 pg (27.0-32.0); Mean Corpuscular Volume 98.9 fL (81-99); Mean Platelet Vol. 10.9 fl (6.2-12.0); Monocyte# 0.54 X10^3/uL; Monocyte% 12.2 % (0-10); NRBC Flagged by Analyzer 0 % (0-5); Neutrophil # 3.03 X10^3/uL (2.7-7.7); Neutrophil % 68.1 % (47-70); POSITIVE COUNT YES; Platelet Count 231 K/mm3 (150-450); RBC Distribution Width CV 17.5 % (11.6-14.6); RBC Distribution Width SD 63.7 fl (35.1-43.9); Red Blood Count 1.82 M/mm3 (4.2-5.4); White Blood Count 4.4 K/mm3 (4.4-11.0)
[2023-08-21 16:55] LABS: Prothrombin Time (Protime)PT. 13.4 SECONDS (11.7-14.9)
[2023-08-21 16:56] LABS: Partial Thromboplast Time 26.1 Seconds (24.1-36.2)
[2023-08-21 17:01] LABS: Anion Gap 2 (5-15); BUN 18 mg/dL (7-18); BUN/Creat Ratio 19.6 RATIO (10-20); Calcium,Total 8.9 mg/dL (8.5-10.1); Chloride 107 mmol/L (98-107); Creatinine, Serum 0.92 mg/dL (0.55-1.02); EST Glomerular Filtration Rate 64 mL/min (>60); Est Glom Filt Rate - Afr Amer 77 mL/min (>60); Estimated Creatinine Clearance 44.38 ml/min; Glucose 108 mg/dL (74-106); Sodium Level 142 mmol/L (136-145)
--- NOTE | 2023-08-21 17:11 | CT_ITS ---
INDICATION: GI bleed EXAMINATION: CTA abdomen and pelvis - TECHNIQUE: Routine abdominal CT angiogram protocol was performed with IV contrast. MIP images provided. A radiation dose optimization technique was used for this scan. IV Contrast dosage and agent: RADIATION DOSAGE (If Supplied By Facility): CTDIvol = ( 29.82 ) mGy, DLP = ( 675.49 ) mGycm COMPARISON: FINDINGS: Lung bases: Mild right pleural effusion with basilar atelectasis. Liver: Normal. No bile ductal dilatation. Gallbladder: Normal. Spleen: Normal. Adrenal gland: Normal. Kidneys: Normal. No hydronephrosis or stone formation. Pancreas:Normal. Bowel gas pattern: Colonic diverticulosis. Prominent air fluid level in the stomach. Appendix: Normal. There is a colostomy through the left anterior abdominal wall. Pelvis: Pelvic organs: No mass lesion noted. Bone survey: Severe compression of T11. Mild compression of L2. Old right pubic fractures. Vascular: Diffusely calcified abdominal aorta. No aneurysm or dissection. Mildly calcified celiac and superior mesenteric arteries with mild stenosis. Nonvisualization of the inferior mesenteric artery. Calcified pelvic arteries bilaterally with mild to moderate stenosis. CT/CTA Abd/Pelvis W/WO Contrast IMPRESSION: No gross evidence of acute GI bleed. Right pleural effusion. Electronically Signed: Hola Andrea DO at 18:48 EDT Reading Location ID and State: [facility] / [place] Tel [phone], Service support ,
--- NOTE | 2023-08-21 17:14 | PCM.HP.STD ---
HPI - General General Date of Admission: 08/21/23 Date of Service: 08/21/23 Chief Complaint: diarrhea/GI BLEED HPI Narrative JUAN HAWKINS, is a 73 F who presented to the emergency department at [facility] at the direction of her oncologist due to severe anemia with a hemoglobin of 5.1. The patient notes that she has been feeling a little more fatigued, a little more short of breath, and just not had the energy she typically has. She also reports that she has noted that some of the output from her ostomy has been darker than usual. She also reports the volume out of her ostomy has been a little bit higher and more watery. She was admitted in early June and taken to the OR for an ex lap and left hemicolectomy with a transverse colostomy due to ischemic left colon which was presumably caused by C. difficile. She was placed on oral vancomycin and treated through 07/13/2023 however stool never was positive for this. She complains of some mild nausea which has been chronic while she has been on chemotherapy and some mild left-sided abdominal pain that she notes is more when she coughs but its been nothing of significance. She reported that if she had been told to come the emergency department by her oncologist she probably would not have presented today. Vital signs on presentation showed temperature of 96.5, heart rate 106, blood pressure 122/57, respiratory rate 18 oxygen saturations are 95% on room air. Her CBC shows no leukocytosis or left shift. Her hemoglobin is 4.9 (baseline has been 9-11). Her coags are normal. Chemistry panel is unremarkable. Stool was assessed for C. difficile and occult blood. C. difficile was positive for toxin and PCR and occult blood was positive out of her ostomy. Case was discussed with general surgery and GI in the emergency department. GI has added on a CTA of her abdomen pelvis and plans to proceed with colonoscopy tomorrow. She has been transfused blood products and admission will be required. [facility] Medical History Alopecia Arthritis Asthma Back pain Benign neoplasm of colon Cancer Cancer related pain Cardiology follow-up encounter Chronic constipation Contact with and (suspected) exposure to other viral communicable diseases COPD (chronic obstructive pulmonary disease) COVID-19 Easy bruising Encounter for education Essential hypertension Fatigue Former smoker Gastric reflux Generalized weakness High cholesterol History of echocardiogram History of edema History of irregular heartbeat History of stress test Hyperlipidemia Hypertension Hypokalemia Mild aortic stenosis Nicotine dependence Pneumonia Restless legs Shortness of breath on exertion Wears dentures Wears glasses Home Medications albuterol sulfate 90 mcg/actuation aerosol inhaler 2 puff inhalation Q4H PRN SHORTNESS OF BREATH/WHEEZING 04/17/19 [History Last Taken Unknown] atorvastatin 10 mg tablet 10 mg PO QHS CHOLESTEROL #90 tabs 04/17/21 [Rx Last Taken 08/20/23] montelukast 10 mg tablet 10 mg PO DAILY ALLERGIES 08/21/22 [History Last Taken 08/21/23] lisinopril 20 mg tablet 20 mg PO DAILY BLOOD PRESSURE 12/06/22 [History Last Taken 08/21/23] Hair prostethesis #1 ea 01/17/23 [Rx Last Taken Unknown] budesonide-formoterol HFA 160 mcg-4.5 mcg/actuation aerosol inhaler (Symbicort) 2 puff inhalation BID COPD 03/18/23 [History Last Taken 08/21/23] gabapentin 300 mg capsule 300 mg PO QHS NERVE PAIN 03/18/23 [History Last Taken 08/20/23] colestipol 1 gram tablet 1 g PO BID CHOLESTEROL #60 tabs 04/16/23 [Rx Last Taken 08/21/23] pantoprazole 40 mg tablet,delayed release 40 mg PO DAILY ACID REFLUX #30 tabs 07/25/23 [Rx Last Taken 08/21/23] dicyclomine 10 mg capsule 10 mg PO BID IRRITABLE BOWELS 08/21/23 [History Last Taken 08/21/23] fluticasone furoate 100 mcg/actuation blister powder for inhalation (Arnuity Ellipta) 1 inh inhalation DAILY SHORTNESS OF BREATH/WHEEZING 08/21/23 [History Last Taken 08/21/23] lidocaine-prilocaine 2.5 %-2.5 % topical cream 1 applic topical ONCE PRN PORT ACCESS 30 days #30 grams 08/21/23 [Rx Last Taken Unknown] mirtazapine 15 mg tablet 15 mg PO QHS DEPRESSION 08/21/23 [History Last Taken 08/20/23] ondansetron HCl 4 mg tablet 4 mg PO TID PRN NAUSEA/VOMITING 08/21/23 [History Last Taken Unknown] Allergy/AdvReac Type Severity Reaction Status Date / Time watermelon Allergy Intermediate Hives Verified 08/21/23 15:41 Family History Father Cancer spinal Mother Alzheimer's disease Brother Pacemaker Surgical History History of amputation of finger of right hand History of appendectomy History of breast surgery History of cataract extraction History of creation of ostomy History of cystoscopy History of D&C History of hysterectomy History of toe surgery History of tonsillectomy Status post Eleno procedure Social History household members: spouse pets and animals: Yes (dogs) Smoking Status: Former smoker how long ago did patient quit smokin alcohol intake: former substance use type: does not use ROS Constitutional Constitutional: Reports fatigue and weakness; Denies anorexia, change in weight, chills, fever(s), malaise, night sweats or other Eyes Eyes: Denies blurry vision, change in eye color, change in vision, discharge from eye(s), double vision, erythema, eye pain, loss of vision or other ENT HEENT: Denies abnormal hearing, dysphagia, ear pain, epistaxis, headache(s), hearing loss, nasal congestion, nasal discharge, post nasal drip, sinus pressure, sore throat or other Cardiovascular Cardiovascular: Denies chest pain, claudication, dyspnea on exertion, edema, lightheadedness, orthopnea, palpitations, paroxysmal nocturnal dyspnea, rapid heart rate, syncope or other Respiratory/Chest Respiratory/Chest: Reports cough, dyspnea, shortness of breath at rest and shortness of breath with exertion; Denies excessive phlegm production, hemoptysis, productive cough, wheezing or other Gastrointestinal Gastrointestinal: Reports diarrhea and nausea; Denies abdominal pain, coffee ground emesis, constipation, dyspepsia, hematemesis, hematochezia, loose stools, melena, vomiting or other Genitourinary Genitourinary: Denies burning urination, difficulty urinating, dysuria, hematuria, nocturia, urinary frequency, urinary hesitancy, urinary incontinence, urinary urgency or other Musculoskeletal Musculoskeletal: Reports joint pain and joint stiffness; Denies arthralgias, back pain, joint swelling, myalgias, neck pain or other Neurologic Neurologic: Denies abnormal gait, abnormal speech, confusion, disequilibrium, dizziness, focal weakness, headache(s), numbness, paresthesias, seizure-like activity, seizures, syncope, tingling, tremor(s) or other Psychiatric Psychiatric: Denies anxiety, depression, homicidal ideation, suicidal ideation or other Endocrine Endocrinology: Denies change in body appearance, cold intolerance, excessive sweating, heat intolerance, polydipsia, polyuria or other Hematologic/Lymphatic Hematologic/Lymphatic: Reports anemia Allergic/Immunologic Allergic/Immunologic: Denies rhinitis, hives, eczemia, asthma or other Vital Signs Vital Signs Vital Signs: 08/21/23 15:41 08/21/23 15:45 08/21/23 16:13 Temperature 96.5 F L Temperature Source Temporal Pulse Rate 106 H Respiratory Rate 18 Respiratory Pattern Normal Blood Pressure 122/57 H Blood Pressure Mean 78 Pulse Ox 95 Oxygen Delivery Method Room Air 08/21/23 15:45 08/21/23 16:41 Temperature 98.8 F Temperature Source Oral Pulse Rate 102 H 99 Respiratory Rate 18 20 H Respiratory Pattern Blood Pressure 133/70 H 133/66 H Blood Pressure Mean 91 88 Pulse Ox 94 92 Oxygen Delivery Method Room Air Room Air Weight Weight: 61.689 kg Body Mass Index (BMI) 24.0 Physical Exam Const alert, oriented x3, no apparent distress and average body habitus; Negative for healthy appearing or well nourished Constitutional Narrative: Thin, chronically ill-appearing, older white female, sitting up in bed, nursing at bedside, appears older than stated age, very pleasant General Appearance: cooperative HEENT normocephalic, head/scalp atraumatic, hearing grossly normal bilaterally and moist oral mucous membranes HEENT Narrative: Dentures in place, Mallampati 2, no thrush Eyes PERRL and EOMs intact bilaterally Eyes Narrative: Significant conjunctival pallor bilaterally, no scleral icterus Neck no lymphadenopathy and supple Resp normal respiratory effort, no retractions, no use of accessory muscles and clear to auscultation bilaterally Resp Narrative: Markedly diminished diffusely with no adventitious sounds Auscultation: Negative for rales, rhonchi or wheezes Cardio regular rhythm, S1 normal heart sound, S2 normal heart sound, no murmurs, no rub, no gallops and no clicks Cardio Narrative: Mild tachycardia GI normal to inspection, nondistended, normoactive bowel sounds and soft to palpation GI Narrative: Mild tender just left upper and lower quadrant, ostomy bag in place with watery appearing dark brown stool in the bag Extremity Extremity Narrative: Decreased lean muscle mass, patient with clubbing, no cyanosis or edema Neuro oriented x3, CN's II-XII intact bilaterally, moves all extremities and no focal motor deficits Neuro Narrative: Generalized weakness noted Sensorium / Orientation: awake, alert, oriented to person, oriented to place and oriented to time Speech: speech normal Psych affect normal Psych Narrative: Pleasant, appropriately interactive Results Lab / Micro Data 08/21/23 16:43 08/21/23 16:43 Labs: Laboratory Results - last 24 hr 08/21/23 16:43: PT 13.4, INR 1.0, APTT 26.1, Sodium 142, Potassium 4.0, Chloride 107, Carbon Dioxide 33.0 H, Anion Gap 2 L, BUN 18, Creatinine 0.92, Estim Creat Clear Calc 44.38, Est GFR (MDRD) Af Amer 77, Est GFR (MDRD) Non-Af 64, BUN/Creatinine Ratio 19.6, Glucose 108 H, Calcium 8.9, Crossmatch See Detail Assessment & Plan Assessment/Plan (1) Non-small cell carcinoma of left lung, stage 3: (2) Pseudomembranous enterocolitis: (3) Acute GI bleeding: (4) Anemia due to GI blood loss: PLAN: Plan Pseudomembranous colitis -Start oral vancomycin 125 mg every 6 hours -Recommend 14-day treatment at least -GI consultation -General surgery consultation -Status post recent ostomy for ischemic left bowel that was thought to be due to pseudomembranous colitis Lower GI bleed -CTA of the abdomen pelvis is pending per GI request -Colon prep tonight -Colonoscopy tomorrow -Every 6 hours H&H -N.p.o. after midnight -IV fluids with normal saline at 75 cc/h -GI consultation -Recent colostomy due to left-sided ischemic bowel Acute on chronic anemia -Secondary to acute blood loss -Patient is receiving blood and 3 units have been ordered -Every 6 hour H&H's -Colonoscopy planned for tomorrow -GI consultation Stage III non-small cell lung carcinoma of the left lung -Follows with oncology -Chemo is currently on hold due to the above -Patient follow-up after discharge COPD -Continue as needed albuterol -Symbicort -Continue home fluticasone -Continue home Singulair GERD -Continue Protonix Hypertension -Continue home lisinopril Hyperlipidemia -Continue home atorvastatin -Continue home colestipol Neuropathy -Continue home gabapentin DVT prophylaxis -SCDs -Chemoprophylaxis on hold due to admission for GI bleed CODE STATUS DNR CCA with no intubation as per conversation at the time of admission Charges/Coding Visit Charges Inpatient E&M: 20647 Init Hosp L3
--- NOTE | 2023-08-21 17:27 | NURSING ---
PCJosé Manuel HANSON LATE, SYMPTOMATIC ANEMIA, PSEUDOMEMBRANOUS ENTERCOLITIS
[2023-08-21 17:31] LABS: Differential Indicated SCAN CRITERIA MET; Hemoglobin 4.9 g/dL (12.0-15.0)
[2023-08-21 17:39] LABS: Platelet Estimate ADEQUATE (ADEQ)
[2023-08-21 17:40] LABS: Anisocytosis 1+; Hypochromasia 1+; Macrocytosis 1+; Ovalocyte RARE; Red Cell Morphology N CHROM NORMAL (NORM C&C)
--- NOTE | 2023-08-21 19:43 | ED.RN ---
BAHMAN CALLED AND TOLD PT. WILL BE IN ROOM 115 PCU
[2023-08-21] MEDS: Albuterol 2.5 MG/3 ML VIAL.NEB. INHALATION (20:56)
[2023-08-21] MEDS: Budesonide Respules 0.5 MG/2 ML AMPUL.NEB. INHALATION (20:58)
[2023-08-21] MEDS: Atorvastatin Calcium 10 MG Tablet PO (21:30)
[2023-08-21] MEDS: Gabapentin 300 MG Capsule PO (21:30)
[2023-08-21] MEDS: Dicyclomine 10 MG Capsule PO (21:30)
[2023-08-21] MEDS: Mirtazapine 15 MG Tablet PO (21:30)
[2023-08-21] MEDS: Bisacodyl 5 MG Tablet 20 MG PO (21:34)
[2023-08-21] MEDS: Polyethylene Glycol 3350 BOWEL PREP 1 BOTTLE PO (22:46)
[2023-08-22] VITALS (19 sets, daily range): BP systolic 110–154; BP diastolic 57–92; PULSE 72–93; RESP 14–18; TEMP 36.2–36.8; O2SAT 88–100; BMI 25.1
[2023-08-22] MEDS: Colestipol 1 GM TABLET PO ×2 (00:20→15:23)
[2023-08-22] MEDS: Vancomycin 125 MG/5 ML Susp PO.SYRINGE PO ×3 (01:07→17:00)
[2023-08-22] MEDS: Lactated Ringers 1,000 ML 75 ML IV ×3 (02:50→17:00)
[2023-08-22 04:10] LABS: Absolute Lymphocyte Count 0.57 X10^3/uL (0.83-4.51); Absolute Neutrophil Count 3.5 X10^3/uL (2.0-7.7); Basophil# 0.02 X10^3/uL; Basophil% 0.4 % (0-1); Eosinophil# 0.21 X10^3/uL; Eosinophils% 4.3 % (0-5); Hematocrit 28.1 % (37-47); Hemoglobin 8.7 g/dL (12.0-15.0); Lymphocyte # 0.57 X10^3/ul (0.83-4.51); Lymphocyte % 11.8 % (19-41); Mean Corpuscular Hgb 27.9 pg (27.0-32.0); Mean Corpuscular Volume 90.1 fL (81-99); Mean Platelet Vol. 10.5 fl (6.2-12.0); Monocyte# 0.51 X10^3/uL; Monocyte% 10.5 % (0-10); NRBC Flagged by Analyzer 0 % (0-5); Neutrophil # 3.48 X10^3/uL (2.7-7.7); POSITIVE DIFFERENTIAL YES; Platelet Count 182 K/mm3 (150-450); RBC Distribution Width CV 17.2 % (11.6-14.6); RBC Distribution Width SD 55.8 fl (35.1-43.9); Red Blood Count 3.12 M/mm3 (4.2-5.4); White Blood Count 4.8 K/mm3 (4.4-11.0)
[2023-08-22 04:21] LABS: Differential Indicated SCAN CRITERIA MET
[2023-08-22 04:24] LABS: Prothrombin Time (Protime)PT. 13.4 SECONDS (11.7-14.9)
[2023-08-22 04:25] LABS: Partial Thromboplast Time 27.6 Seconds (24.1-36.2)
[2023-08-22 04:30] LABS: ALB/GLOB Ratio 0.9 RATIO (0.9-2.4); AST(SGOT) 18 U/L (15-37); Alanine Aminotransfer ALT/SGPT 21 U/L (13-56); Albumin, Serum 2.5 g/dL (3.2-5.0); Alkaline Phosphatase 93 U/L (45-117); Anion Gap 4 (5-15); BUN 13 mg/dL (7-18); BUN/Creat Ratio 22.5 RATIO (10-20); Calcium,Total 8.3 mg/dL (8.5-10.1); Chloride 110 mmol/L (98-107); Creatinine, Serum 0.58 mg/dL (0.55-1.02); EST Glomerular Filtration Rate 109 mL/min (>60); Est Glom Filt Rate - Afr Amer 131 mL/min (>60); Estimated Creatinine Clearance 39.04 ml/min; Globulin 2.9 g/dL (2.2-4.2); Glucose 85 mg/dL (74-106); Magnesium 1.8 mg/dL (1.6-2.6); Phosphorus 4.2 mg/dL (2.5-4.9); Potassium 3.9 mmol/L (3.5-5.1); Protein, Total 5.4 g/dL (6.4-8.2); Sodium Level 141 mmol/L (136-145)
[2023-08-22 04:55] LABS: Anisocytosis 1+
--- NOTE | 2023-08-22 05:55 | EKG12_ITS ---
Test Reason : AM EKG Blood Pressure : / mmHG Vent. Rate : 085 BPM Atrial Rate : 085 BPM P-R Int : 202 ms QRS Dur : 088 ms QT Int : 342 ms P-R-T Axes : 057 019 121 degrees QTc Int : 406 ms Normal sinus rhythm ST & T wave abnormality, consider anterolateral ischemia Abnormal ECG Confirmed by AILYN EATON, WAI ([id number]), health editor SHU RAY ([id number]) on 08/27/2023 10:06:15 AM Referred By: Confirmed By:WAI ROBERTSON MD
[2023-08-22] MEDS: Polyethylene Glycol 3350 BOWEL PREP 1 BOTTLE PO (06:29)
[2023-08-22] MEDS: Acetaminophen 325 MG Tablet 650 MG PO ×2 (06:42→20:08)
--- NOTE | 2023-08-22 07:35 | EX.PCM.CON.S ---
Assessment & Plan Assessment/Plan (1) Symptomatic anemia: (2) Pseudomembranous enterocolitis: (3) Acute GI bleeding: PLAN: Plan Patient is feeling better after getting the 3 units packed red blood cells. Patient's hemoglobin is 8.7 currently. Patient is scheduled for colonoscopy with Dr. Morris today. Patient is on vancomycin p.o. due to positive C. difficile. No current plans for general surgery intervention we will continue to follow. I will be out tomorrow one of my partners will be rounding. Margarita Dale M.D. Pager: [phone] [facility] [address] [place] [address], [facility], [address] [place] [address] Office: [phone] HPI Consult Data Date of Consult: 08/22/23 HPI Narrative HPI Narrative: JUAN HAWKINS, is a 73 F who presents to the ER due to abnormal labs hemoglobin of 5.1 as well as positive for C. difficile. Patient is well-known to me due to history of presumed C. difficile requiring left colectomy and colostomy due to necrotic colon in early June as patient was also on chemotherapy. Patient states she been having dark stools for about 5 days but more recently they became more loose patient was feeling very fatigued. Patient did have a hemoglobin checked by oncology who she saw yesterday and her hemoglobin was 5.1 dropped from 9.8 on 08/07/2023. Patient also previously called into our office about some loose stools that were black we did get stool studies and patient is positive for C. difficile did come back yesterday as well encourage patient to go to the ER. Patient got 3 units of packed red blood cells in the ER and admitted to the floor. Patient's hemoglobin currently is 8.7. GI was also consulted plan for colonoscopy today patient did do bowel prep currently patient's stool from her colostomy is a light santana. Patient had been on Protonix as an outpatient prior to upcoming and is currently on as well. [facility] Medical History Alopecia Arthritis Asthma Back pain Benign neoplasm of colon Cancer Cancer related pain Cardiology follow-up encounter Chronic constipation Contact with and (suspected) exposure to other viral communicable diseases COPD (chronic obstructive pulmonary disease) COVID-19 Easy bruising Encounter for education Essential hypertension Fatigue Former smoker Gastric reflux Generalized weakness High cholesterol History of echocardiogram History of edema History of irregular heartbeat History of stress test Hyperlipidemia Hypertension Hypokalemia Mild aortic stenosis Nicotine dependence Pneumonia Restless legs Shortness of breath on exertion Wears dentures Wears glasses Home Medications albuterol sulfate 90 mcg/actuation aerosol inhaler 2 puff inhalation Q4H PRN SHORTNESS OF BREATH/WHEEZING 04/17/19 [History Last Taken Unknown] atorvastatin 10 mg tablet 10 mg PO QHS CHOLESTEROL #90 tabs 04/17/21 [Rx Last Taken 08/20/23] montelukast 10 mg tablet 10 mg PO DAILY ALLERGIES 08/21/22 [History Last Taken 08/21/23] lisinopril 20 mg tablet 20 mg PO DAILY BLOOD PRESSURE 12/06/22 [History Last Taken 08/21/23] Hair prostethesis #1 ea 01/17/23 [Rx Last Taken Unknown] budesonide-formoterol HFA 160 mcg-4.5 mcg/actuation aerosol inhaler (Symbicort) 2 puff inhalation BID COPD 03/18/23 [History Last Taken 08/21/23] gabapentin 300 mg capsule 300 mg PO QHS NERVE PAIN 03/18/23 [History Last Taken 08/20/23] colestipol 1 gram tablet 1 g PO BID CHOLESTEROL #60 tabs 04/16/23 [Rx Last Taken 08/21/23] pantoprazole 40 mg tablet,delayed release 40 mg PO DAILY ACID REFLUX #30 tabs 07/25/23 [Rx Last Taken 08/21/23] dicyclomine 10 mg capsule 10 mg PO BID IRRITABLE BOWELS 08/21/23 [History Last Taken 08/21/23] fluticasone furoate 100 mcg/actuation blister powder for inhalation (Arnuity Ellipta) 1 inh inhalation DAILY SHORTNESS OF BREATH/WHEEZING 08/21/23 [History Last Taken 08/21/23] lidocaine-prilocaine 2.5 %-2.5 % topical cream 1 applic topical ONCE PRN PORT ACCESS 30 days #30 grams 08/21/23 [Rx Last Taken Unknown] mirtazapine 15 mg tablet 15 mg PO QHS DEPRESSION 08/21/23 [History Last Taken 08/20/23] ondansetron HCl 4 mg tablet 4 mg PO TID PRN NAUSEA/VOMITING 08/21/23 [History Last Taken Unknown] Allergy/AdvReac Type Severity Reaction Status Date / Time watermelon Allergy Intermediate Hives Verified 08/21/23 15:41 Family History Father Cancer spinal Mother Alzheimer's disease Brother Pacemaker Surgical History History of amputation of finger of right hand History of appendectomy History of breast surgery History of cataract extraction History of creation of ostomy History of cystoscopy History of D&C History of hysterectomy History of toe surgery History of tonsillectomy Status post Eleno procedure Social History household members: spouse pets and animals: Yes (dogs) Smoking Status: Former smoker how long ago did patient quit smokin alcohol intake: former substance use type: does not use ROS Constitutional Constitutional: Reports anorexia and fatigue Eyes Eyes: Denies loss of vision ENT HEENT: Denies dysphagia Cardiovascular Cardiovascular: Denies chest pain Respiratory/Chest Respiratory/Chest: Denies cough Gastrointestinal Gastrointestinal: Reports change in bowel habits, diarrhea and melena Genitourinary Genitourinary: Denies dysuria Musculoskeletal Musculoskeletal: Denies joint swelling Integumentary Integumentary: Denies jaundice Neurologic Neurologic: Reports dizziness Psychiatric Psychiatric: Reports depression Hematologic/Lymphatic Hematologic/Lymphatic: Reports easy bruising Physical Exam Const alert, oriented x3 and no apparent distress HEENT normocephalic Neck supple Resp normal respiratory effort Cardio Rate: regular rate GI soft to palpation and non-tender GI Narrative: Colostomy pink with santana stool no signs of gross blood Inspection: Negative for abdominal distention Extremity normal to inspection Skin no jaundice Neuro CN's II-XII intact bilaterally Psych affect normal Lab / Micro Data 08/22/23 03:48 08/22/23 03:48 Labs: Laboratory Results - last 24 hr 08/21/23 16:43: WBC 4.4, RBC 1.82 L, Hgb 4.9 L*, Hct 18.0 L, MCV 98.9, MCH 26.9 L, MCHC 27.2 L, RDW Std Deviation 63.7 H, RDW Coeff of Eloisa 17.5 H, Plt Count 231, MPV 10.9, Immature Gran % (Auto) 0.700, Neut % (Auto) 68.1, Lymph % (Auto) 14.9 L, Whitman % (Auto) 12.2 H, Eos % (Auto) 3.6, Baso % (Auto) 0.5, Absolute Neuts (auto) 3.0, Absolute Lymphs (auto) 0.66 L, Nucleated RBC % 0, Diff Path Review February, Platelet Estimate ADEQUATE, RBC Morphology N CHROM, Hypochromasia 1+, Anisocytosis 1+, Macrocytosis 1+, Ovalocytes RARE, PT 13.4, INR 1.0, APTT 26.1, Sodium 142, Potassium 4.0, Chloride 107, Carbon Dioxide 33.0 H, Anion Gap 2 L, BUN 18, Creatinine 0.92, Estim Creat Clear Calc 44.38, Est GFR (MDRD) Af Amer 77, Est GFR (MDRD) Non-Af 64, BUN/Creatinine Ratio 19.6, Glucose 108 H, Calcium 8.9, Blood Type O POSITIVE, Antibody Screen NEGATIVE, Crossmatch See Detail 08/22/23 03:48: WBC 4.8, RBC 3.12 L, Hgb 8.7 L, Hct 28.1 L, MCV 90.1 D, MCH 27.9, MCHC 31.0 L D, RDW Std Deviation 55.8 H, RDW Coeff of Eloisa 17.2 H, Plt Count 182, MPV 10.5, Immature Gran % (Auto) 1.000 H, Neut % (Auto) 72.0 H, Lymph % (Auto) 11.8 L, Whitman % (Auto) 10.5 H, Eos % (Auto) 4.3, Baso % (Auto) 0.4, Absolute Neuts (auto) 3.5, Absolute Lymphs (auto) 0.57 L, Nucleated RBC % 0, Anisocytosis 1+, PT 13.4, INR 1.0, APTT 27.6, Sodium 141, Potassium 3.9, Chloride 110 H, Carbon Dioxide 27.0, Anion Gap 4 L, BUN 13, Creatinine 0.58, Estim Creat Clear Calc 39.04, Est GFR (MDRD) Af Amer 131, Est GFR (MDRD) Non-Af 109, BUN/Creatinine Ratio 22.5 H, Glucose 85, Calcium 8.3 L, Phosphorus 4.2, Magnesium 1.8, Total Bilirubin 0.90, AST 18, ALT 21, Alkaline Phosphatase 93, Total Protein 5.4 L, Albumin 2.5 L, Globulin 2.9, Albumin/Globulin Ratio 0.9 Radiology Impression Abdomen/Pelvis CTA 08/21/23 17:11 IMPRESSION: No gross evidence of acute GI bleed. Right pleural effusion. Electronically Signed: Hola Andrea DO at 18:48 EDT Reading Location ID and State: [facility] / [place] Tel [phone], Service support , Charges/Coding Visit Charges Inpatient E&M: 71008 Init Hosp L2
[2023-08-22] MEDS: Ondansetron 4 MG/2 ML Vial IV (08:27)
[2023-08-22 09:33] LABS: Hematocrit 28.4 % (37-47); Hemoglobin 8.8 g/dL (12.0-15.0)
[2023-08-22] MEDS: Albuterol 2.5 MG/3 ML VIAL.NEB. INHALATION ×2 (10:40→19:45)
[2023-08-22] MEDS: Budesonide Respules 0.5 MG/2 ML AMPUL.NEB. INHALATION ×2 (10:40→19:45)
--- NOTE | 2023-08-22 12:00 | EGD_PTH ---
PATIENT: JUAN HAWKINS [facility]: [facility] U#:[id number] AGE/SX: 73/F ROOM: [facility] RE08/21/[address]: Dr. Ervin Gan MD : 1950 BED: 1 DIS: 08/24/2023 SPEC #: [id number] RECD: 08/22/23 14:58 STATUS: RAQUEL VILLA #: [id number] VERONICA: 08/22/23 12:[address]: Kwadwo Morris DEPT: SURGICAL PATHOLOGY RECD BY: Selena Montes ENTERED: 08/23/23 07:52 SP TYPE: EGD BIOPSY OTHR DR: DO Dr. Ervin Fay MD Dr. Paul Nielsen, MD Dr. Tamera Robotham, MD Tissues: Esophagus, NOS Procedures: Special Stain Group I Surgery Specimen Level IV GMS Stain (control) Comments: @ Ordering doctor for SUIV edited from to @ by RAJAT at 08/23/23 140 @ Submitting doctor edited from to @ by RGOOD at 08/23/23 1407 HEADER OPERATION: Colonoscopy, through colostomy, EGD PRE-OP DIAGNOSIS: Non-small cell carcinoma of left lung, stage 3; pseudomembranous enterocolitis; Acute GI bleeding, anemia due to GI blood loss TISSUE SUBMITTED: Esophagus biopsy MICROSCOPIC DIAGNOSIS Esophagus, biopsy: Focal acute esophagitis. Fungal organisms consistent with Edith species. See comment. AM:freda 08/26/2023 COMMENT GMS stain with matched control was used in the evaluation of this case. MICROSCOPIC DESCRIPTION Slides are reviewed. GROSS DESCRIPTION Received in fixative is one container labeled with the patient's name and designated esophagus biopsy. The specimen consists of multiple irregular fragments of light santana soft tissue that in aggregate measure 1.0 x 0.3 x 0.1 cm. The specimen is totally submitted in one cassette. / SJ:freda 08/23/2023 TC:2 CPT: 29808, 87656
--- NOTE | 2023-08-22 12:15 | CASEMGMT ---
RN CM NOTE: RN CM to room to complete initial RN CM assessment. Pt out of room at this time. RN CM to attempt at a later time. Michael BSN RN CM
--- NOTE | 2023-08-22 13:52 | SUR.PHASEI ---
SPOKE WITH BAHMAN-. UPDATED ON PATIENT STATUS AND TOLD SHE WOULD BE HEADING BACK UP TO ROOM NOW.
--- NOTE | 2023-08-22 14:05 | OP.CCLET_ITS ---
08/22/2023 Hernandez Mcqueen MD [address] [id number] Re : Upper GI endoscopy procedure for Domenica Lezama Dear Dr. Mcqueen This procedure was performed on July. My impressions and recommendations are as follows: Impressions : - Normal esophagus. - Medium-sized hiatal hernia. - Erythematous mucosa in the stomach. Biopsied. - Esophageal plaques were found, consistent with candidiasis. Biopsied. - Normal examined duodenum. Recommendations : - Discharge patient to home. - Resume previous diet. - Continue present medications. - Await pathology results. - Repeat upper endoscopy. My findings are described in the full procedure note, which is enclosed. If I can be of further assistance, please feel free to contact me at . Sincerely, Kwadwo Morris, 08/22/2023 2:05:07 PM This report has been signed electronically.
--- NOTE | 2023-08-22 14:05 | OP.EGD_ITS ---
Patient Name: Domenica Lezama Procedure Date: 08/22/2023 12:53 PM Date of : 1950 Age: 73 Procedure: Upper GI endoscopy Indications: Iron deficiency anemia Providers: Kwadwo Morris DO Medicines: Monitored Anesthesia Care Patient Profile: This is a 73 year old female. Refer to note in patient chart for documentation of history and physical. Patient has symptoms. Complications: No immediate complications. Procedure: Pre-Anesthesia Assessment: - Prior to the procedure, a History and Physical was performed, and patient medications and allergies were reviewed. The patient is competent. The risks and benefits of the procedure and the sedation options and risks were discussed with the patient. All questions were answered and informed consent was obtained. Patient identification and proposed procedure were verified by the physician. Mental Status Examination: normal. Airway Examination: normal oropharyngeal airway and neck mobility. Prophylactic Antibiotics: The patient does not require prophylactic antibiotics. Prior Anticoagulants: The patient has taken no anticoagulant or antiplatelet agents except for NSAID medication. ASA Grade Assessment: IV - A patient with severe systemic disease that is a constant threat to life. After reviewing the risks and benefits, the patient was deemed in satisfactory condition to undergo the procedure. The anesthesia plan was to use monitored anesthesia care (MAC). Immediately prior to administration of medications, the patient was re-assessed for adequacy to receive sedatives. The heart rate, respiratory rate, oxygen saturations, blood pressure, adequacy of pulmonary ventilation, and response to care were monitored throughout the procedure. The physical status of the patient was re-assessed after the procedure. After obtaining informed consent, the endoscope was passed under direct vision. Throughout the procedure, the patient's blood pressure, pulse, and oxygen saturations were monitored continuously. The Endoscope was introduced through the mouth, and advanced to the second part of duodenum. The upper GI endoscopy was accomplished without difficulty. The patient tolerated the procedure well. Scope In: 12:54:12 PM Scope Out: 12:57:13 PM Total Procedure Duration Time 0 hours 3 minutes 1 second Findings: The examined esophagus was normal. A medium-sized hiatal hernia was present. Striped mildly erythematous mucosa without bleeding was found in the entire examined stomach. Biopsies were taken with a cold forceps for Helicobacter pylori testing. Verification of patient identification for the specimen was done. Estimated blood loss was minimal. Patchy, white plaques were found at the gastroesophageal junction. Biopsies were taken with a cold forceps for histology. Verification of patient identification for the specimen was done. Estimated blood loss was minimal. The examined duodenum was normal. Impression: - Normal esophagus. - Medium-sized hiatal hernia. - Erythematous mucosa in the stomach. Biopsied. - Esophageal plaques were found, consistent with candidiasis. Biopsied. - Normal examined duodenum. Recommendation: - Discharge patient to home. - Resume previous diet. - Continue present medications. - Await pathology results. - Repeat upper endoscopy. Procedure Code(s): --- Professional --- 89228, Esophagogastroduodenoscopy, flexible, transoral; with biopsy, single or multiple CPT copyright 2021 [employer]. All rights reserved. The codes documented in this report are preliminary and upon tunnel kiln firer review may be revised to meet current compliance requirements. Kwadwo Morris DO 08/22/2023 2:05:07 PM This report has been signed electronically. Number of Addenda: 0 Note Initiated On: 08/22/2023 12:53 PM
--- NOTE | 2023-08-22 14:09 | OP.CCLET_ITS ---
08/22/2023 Hernandez Mcqueen MD [address] [id number] Re : Colonoscopy procedure for Domenica Teja Dear Dr. Mcqueen This procedure was performed on July. My impressions and recommendations are as follows: Impressions : - Preparation of the colon was fair. - The transverse colon, hepatic flexure, ascending colon, cecum and appendiceal orifice are normal. - No specimens collected. Recommendations : - Return patient to hospital [facility] for ongoing care. - Resume previous diet. - Continue present medications. - No repeat colonoscopy. My findings are described in the full procedure note, which is enclosed. If I can be of further assistance, please feel free to contact me at . Sincerely, Kwadwo Morris, 08/22/2023 2:08:53 PM This report has been signed electronically.
--- NOTE | 2023-08-22 14:09 | OP.COLON_ITS ---
Patient Name: Domenica Lezama Procedure Date: 08/22/2023 12:25 PM Date of : 1950 Age: 73 Procedure: Colonoscopy Indications: Hematochezia Providers: Kwadwo Morris DO Medicines: Monitored Anesthesia Care Patient Profile: This is a 73 year old female. Refer to note in patient chart for documentation of history and physical. Last Colonoscopy: date unknown. Unable to locate last colonoscopy report. Complications: No immediate complications. Procedure: Pre-Anesthesia Assessment: - Prior to the procedure, a History and Physical was performed, and patient medications and allergies were reviewed. The patient is competent. The risks and benefits of the procedure and the sedation options and risks were discussed with the patient. All questions were answered and informed consent was obtained. Patient identification and proposed procedure were verified by the physician. Mental Status Examination: alert and oriented. Airway Examination: normal oropharyngeal airway and neck mobility. Respiratory Examination: clear to auscultation. CV Examination: normal. Prophylactic Antibiotics: The patient does not require prophylactic antibiotics. Prior Anticoagulants: The patient has taken no anticoagulant or antiplatelet agents. ASA Grade Assessment: III - A patient with severe systemic disease. After reviewing the risks and benefits, the patient was deemed in satisfactory condition to undergo the procedure. The anesthesia plan was to use monitored anesthesia care (MAC). Immediately prior to administration of medications, the patient was re-assessed for adequacy to receive sedatives. The heart rate, respiratory rate, oxygen saturations, blood pressure, adequacy of pulmonary ventilation, and response to care were monitored throughout the procedure. The physical status of the patient was re-assessed after the procedure. After I obtained informed consent, the scope was passed under direct vision. Throughout the procedure, the patient's blood pressure, pulse, and oxygen saturations were monitored continuously. The colonoscope was introduced through the anus and advanced to the cecum, identified by appendiceal orifice and ileocecal valve. The colonoscopy was performed without difficulty. The patient tolerated the procedure well. The quality of the bowel preparation was fair. Scope In: 12:39:28 PM Scope Withdrawal Time 0 hours 4 minutes 10 seconds Scope Out: 12:45:26 PM Total Procedure Duration Time 0 hours 5 minutes 58 seconds Findings: The perianal and digital rectal examinations were normal. The transverse colon, hepatic flexure, ascending colon, cecum and appendiceal orifice appeared normal. Impression: - Preparation of the colon was fair. - The transverse colon, hepatic flexure, ascending colon, cecum and appendiceal orifice are normal. - No specimens collected. Recommendation: - Return patient to hospital thras[facility] for ongoing care. - Resume previous diet. - Continue present medications. - No repeat colonoscopy. Procedure Code(s): --- Professional --- 21270, Colonoscopy, flexible; diagnostic, including collection of specimen(s) by brushing or washing, when performed (separate procedure) CPT copyright 2021 [employer]. All rights reserved. The codes documented in this report are preliminary and upon angledozer operator review may be revised to meet current compliance requirements. Kwadwo Morris DO 08/22/2023 2:08:53 PM This report has been signed electronically. Number of Addenda: 0 Note Initiated On: 08/22/2023 12:25 PM
[2023-08-22] MEDS: Pantoprazole Sodium 40 MG Tablet PO (14:14)
[2023-08-22] MEDS: Dicyclomine 10 MG Capsule PO ×2 (14:14→23:28)
[2023-08-22] MEDS: Lisinopril 20 MG Tablet PO (14:14)
[2023-08-22] MEDS: Montelukast 10 MG Tablet PO (14:14)
[2023-08-22 15:34] LABS: Hemoglobin 8.7 g/dL (12.0-15.0)
--- NOTE | 2023-08-22 16:03 | CASEMGMT ---
JARED BURRELL NOTE: Pt is active w/[facility] and this [facility]. She was made aware pt has been admitted to [facility]. Michael FIELDS RN CM
--- NOTE | 2023-08-22 16:14 | PN.HOSP_ITS ---
Subjective Subjective Feels better after transfusion, no issues overnight. Looks like she has some candidiasis during her EGD so we will start her on Diflucan Objective Data Objective Data Vital Signs: Vital Signs Temp Pulse Resp BP Pulse Ox O2 Del Method O2 Flow Rate 97.9 F 79 18 138/65 H 95 Nasal Cannula 2 08/22/23 14:11 08/22/23 14:11 08/22/23 14:11 08/22/23 14:11 08/22/23 14:11 08/22/23 14:11 08/22/23 14:11 Oxygen Flow Rate (L/min) 2 Oxygen Delivery Method Nasal Cannula Weight: 137 lb 9.095 oz Body Mass Index (BMI) 25.1 Intake & Output: Intake and Output for Last 24 Hours 08/21/23 08/22/23 08/23/23 03:59 03:59 03:59 Intake Total 1200 / 1200 1566.25 / 1566.25 Output Total 1250 / 1250 1450 / 1450 Balance -50 / -50 116.25 / 116.25 Medical Nutrition Assessment Dietitian: Malnutrition Criteria Met Start: 08/22/23 15:59 Freq: Status: Active Protocol: Document 08/22/23 16:01 (Rec: 08/22/23 16:01 [id number]) Nutrition Malnutrition Evidence of Malnutrition Exists Yes Malnutrition (severe): Chronic Evidenced By Suboptimal Energy Intake ( Severe),Weight Loss (Severe) Clinical Problem Chronic Disease or Condition Related Malnutrition Etiology severe related to suboptimal appetite and lung cancer Signs/Symptoms as evidenced by 21.1lbs (13.2% ) weight loss in ~2 months and estimated PO intakes <75% of needs for >1 month. Status Active Problem Recommendation Dietitian Recommendations/Changes Continue Regular diet to optimize oral intakes. RD will adjust EPHP supplement and add to meals instead of medpass. Lab / Micro Data 08/22/23 15:22 08/22/23 03:48 Labs: Laboratory Results - last 24 hr 08/21/23 16:43: WBC 4.4, RBC 1.82 L, Hgb 4.9 L*, Hct 18.0 L, MCV 98.9, MCH 26.9 L, MCHC 27.2 L, RDW Std Deviation 63.7 H, RDW Coeff of Eloisa 17.5 H, Plt Count 231, MPV 10.9, Immature Gran % (Auto) 0.700, Neut % (Auto) 68.1, Lymph % (Auto) 14.9 L, [place] % (Auto) 12.2 H, Eos % (Auto) 3.6, Baso % (Auto) 0.5, Absolute Neuts (auto) 3.0, Absolute Lymphs (auto) 0.66 L, Nucleated RBC % 0, Diff Path Review May foll, Platelet Estimate ADEQUATE, RBC Morphology N CHROM, Hypochromasia 1+, Anisocytosis 1+, Macrocytosis 1+, Ovalocytes RARE, PT 13.4, INR 1.0, APTT 26.1, Sodium 142, Potassium 4.0, Chloride 107, Carbon Dioxide 33.0 H, Anion Gap 2 L, BUN 18, Creatinine 0.92, Estim Creat Clear Calc 44.38, Est GFR (MDRD) Af Amer 77, Est GFR (MDRD) Non-Af 64, BUN/Creatinine Ratio 19.6, Glucose 108 H, Calcium 8.9, Blood Type O POSITIVE, Antibody Screen NEGATIVE, Crossmatch See Detail 08/22/23 03:48: WBC 4.8, RBC 3.12 L, Hgb 8.7 L, Hct 28.1 L, MCV 90.1 D, MCH 27.9, MCHC 31.0 L D, RDW Std Deviation 55.8 H, RDW Coeff of Eloisa 17.2 H, Plt Count 182, MPV 10.5, Immature Gran % (Auto) 1.000 H, Neut % (Auto) 72.0 H, Lymph % (Auto) 11.8 L, [place] % (Auto) 10.5 H, Eos % (Auto) 4.3, Baso % (Auto) 0.4, Absolute Neuts (auto) 3.5, Absolute Lymphs (auto) 0.57 L, Nucleated RBC % 0, Anisocytosis 1+, PT 13.4, INR 1.0, APTT 27.6, Sodium 141, Potassium 3.9, Chloride 110 H, Carbon Dioxide 27.0, Anion Gap 4 L, BUN 13, Creatinine 0.58, Estim Creat Clear Calc 39.04, Est GFR (MDRD) Af Amer 131, Est GFR (MDRD) Non-Af 109, BUN/Creatinine Ratio 22.5 H, Glucose 85, Calcium 8.3 L, Phosphorus 4.2, Magnesium 1.8, Total Bilirubin 0.90, AST 18, ALT 21, Alkaline Phosphatase 93, Total Protein 5.4 L, Albumin 2.5 L, Globulin 2.9, Albumin/Globulin Ratio 0.9 08/22/23 09:10: Hgb 8.8 L, Hct 28.4 L 08/22/23 15:22: Hgb 8.7 L, Hct 28.0 L Radiography Diagnostic Testing: Radiology Impression Abdomen/Pelvis CTA 08/21/23 17:11 IMPRESSION: No gross evidence of acute GI bleed. Right pleural effusion. Electronically Signed: Hola Andrea DO at 18:48 EDT Reading Location ID and State: [facility] / [place] Tel [phone], Service support , Physical Exam Narrative General: Alert, Oriented x3, Cooperative, No apparent distress HEENT: Atraumatic, PERRLA, EOMI, Normocephalic Oral: Moist Mucosa Neck: Supple, No JVD Lungs: Dim dashed, Normal air movement, No rhonchi, No wheeze, No rales Cardiovascular: Regular rate, Regular Rhythm, Normal S1, Normal S2, No murmurs Abdomen: Soft, Non Tender, Non-Distended, No Hepato-splenomegaly, ostomy healthy with output Extremities: No edema, Capillary Refill Less than 3 Seconds Skin: No rashes, No breakdown Musculoskeletal: No Tenderness to Palpation of Joints or Extremities Neurological: Cranial nerves II-XII grossly intact, Motor Exam 5/5 strength throughout, Sensory exam intact to light touch and pain Psych/Mental Status: Normal Affect, Appropriate Assessment & Plan Assessment/Plan (1) Non-small cell carcinoma of left lung, stage 3: (2) Pseudomembranous enterocolitis: (3) Acute GI bleeding: (4) Anemia due to GI blood loss: PLAN: Plan 1. C. difficile colitis with lower GI bleed with acute blood loss anemia/esophageal candidiasis/GERD ? Continue with p.o. vancomycin ? Colonoscopy oddly shows a normal colon however C. difficile testing was positive ? We will continue with Diflucan for candidiasis on the EGD ? She has received 3 units PRBCs and hemoglobin appears stable ? Continue with PPI 2. Stage IIIB non-small cell lung carcinoma of the left lung/COPD ? Currently receiving chemotherapy as an outpatient ? She says that her disease so far is stable and has not progressed ? Continue with her home inhalers, currently not in exacerbation 3. HTN/HLD ? Blood pressures are stable ? Continue with her home blood pressure and cholesterol medications ? We will monitor and make adjustments as necessary 4. 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 Stable ? Continue with gabapentin DVT: SCDs Charges/Coding Visit Charges Inpatient E&M: 58580 Subs Hosp L2
--- NOTE | 2023-08-22 18:04 | CASEMGMT ---
Care Management - Initial transition planning/care coordination assessment. Face to Face with patient for initial transition planning/care coordination assessment.? This entry writer introduced self and role at [facility]. Patient lying in bed, alert and oriented. Patient?s brother Will and Will?s presented to the room, to which patient voiced okay to proceed with assessment with family present.?? Patient willing to participate in assessment and is able to answer all questions appropriately.? Care providers, pharmacy, and demographics verified. Reason for admission:? Acute GI Bleed, recent positive C-Diff Chronic Diagnoses: Per record, stage IIIb non-small cell carcinoma of the lung, anemia, COPD, HTN, Hyperlipidemia, neuropathy. ?Has Colostomy, placed 06/2023. No noted mental health diagnoses. PCP: Dr. Mcqueen Specialists: Dr. Bryant; Dr. Zaragoza Preferred Pharmacy: [facility] Insurance: [facility] Dual (MCR/LEXI) Prescription Benefit:? Yes. Living Will/HPOA: ?Per H&P DNRCC-A, no intubation.?? Does not have POAHC or Living Will.? Reports has been considering this, but not quite ready to complete.? ?Open to having information provided.? LNOK: Reports Benji is primary contact.? Reports to have 3 children, but only one child is involved in patient?s life (daughter Ashley).? Both are listed on chart.? Report are good support. Living Arrangements: ?One story apartment, no steps to enter.? Lives with .? Reports no issues with meals or getting things done around the house. Transportation: Reports to still drive.? also drives.? DME: Has Rollator, nebulizer, pulse ox, and shower chair. Reports shower chair does not work due to being too large and wobbly, so just sits and slides self over the bathtub (record indicates Hyun supplied the SC at discharge in June 2023).? ?? HHC/SNF: History of [facility] (denies current involvement).?? No history of SNF and states does not want to go to a SNF.?? Community Resources:? Active with [facility] services.??? Reports [facility] sounds familiar, but not certain whether has a CM through this agency or not.? Patient reports okay with SW calling to check on this.? 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 Admits to feeling weaker at present time, would be open to home health if needed.? Disposition Plan: ?To be determined.? Tentative plan to return home with established palliative care services and possible skilled HHC.??? CM to follow for discharge planning needs that may arise during hospital stay. Plan to provide advanced directive information and check with [facility] as to whether patient receives waiver services. -KATHERINE Davis
[2023-08-22] MEDS: Sodium Ferric Gluconat/Sucrose 250 MG in 0.9% Normal Saline (250mL Bag) 250 ML 135 MG IV (18:44)
[2023-08-22] MEDS: Fluconazole 100 MG Tablet PO (20:08)
[2023-08-22 21:47] LABS: Hematocrit 27.6 % (37-47); Hemoglobin 8.7 g/dL (12.0-15.0)
[2023-08-22] MEDS: Mirtazapine 15 MG Tablet PO (23:28)
[2023-08-22] MEDS: Gabapentin 300 MG Capsule PO (23:28)
[2023-08-22] MEDS: Atorvastatin Calcium 10 MG Tablet PO (23:29)
[2023-08-23] VITALS (12 sets, daily range): BP systolic 118–157; BP diastolic 55–91; PULSE 76–90; RESP 14–20; TEMP 36.6–36.7; O2SAT 81–95
[2023-08-23] MEDS: Vancomycin 125 MG/5 ML Susp PO.SYRINGE PO ×5 (00:03→22:58)
[2023-08-23] MEDS: Colestipol 1 GM TABLET PO ×3 (00:06→22:17)
[2023-08-23] MEDS: Albuterol 2.5 MG/3 ML VIAL.NEB. INHALATION ×3 (07:02→19:16)
[2023-08-23] MEDS: Budesonide Respules 0.5 MG/2 ML AMPUL.NEB. INHALATION ×2 (07:02→19:16)
[2023-08-23] MEDS: Dicyclomine 10 MG Capsule PO ×2 (08:50→22:16)
[2023-08-23] MEDS: Pantoprazole Sodium 40 MG Tablet PO (08:50)
[2023-08-23] MEDS: Lisinopril 20 MG Tablet PO (08:50)
[2023-08-23] MEDS: Montelukast 10 MG Tablet PO (08:50)
--- NOTE | 2023-08-23 08:52 | PCM.PN.SRG ---
Subjective Subjective Patient reports she is having a lot of gas from her colostomy. She has not had much stool and she is not having any blood. Objective Data Objective Data Vital Signs: Vital Signs Temp Pulse Resp BP Pulse Ox O2 Del Method O2 Flow Rate 98.0 F 81 16 157/78 H 92 Nasal Cannula 2 08/23/23 06:42 08/23/23 06:45 08/23/23 06:45 08/23/23 06:42 08/23/23 06:45 08/23/23 06:45 08/23/23 06:45 Oxygen Flow Rate (L/min) 2 Oxygen Delivery Method Nasal Cannula Weight: 137 lb 9.095 oz Body Mass Index (BMI) 25.1 Intake & Output: Intake and Output for Last 24 Hours 08/21/23 08/22/23 08/23/23 23:59 23:59 23:59 Intake Total 400 / 400 3532.50 / 4032.50 620 / 620 Output Total 3400 / 3400 Balance 400 / -850 132.50 / 632.50 620 / 620 Medical Nutrition Assessment Dietitian: Malnutrition Criteria Met Start: 08/22/23 15:59 Freq: Status: Active Protocol: Document 08/22/23 16:01 (Rec: 08/22/23 16:01 [id number]) Nutrition Malnutrition Evidence of Malnutrition Exists Yes Malnutrition (severe): Chronic Evidenced By Suboptimal Energy Intake ( Severe),Weight Loss (Severe) Clinical Problem Chronic Disease or Condition Related Malnutrition Etiology severe related to suboptimal appetite and lung cancer Signs/Symptoms as evidenced by 21.1lbs (13.2% ) weight loss in ~2 months and estimated PO intakes <75% of needs for >1 month. Status Active Problem Recommendation Dietitian Recommendations/Changes Continue Regular diet to optimize oral intakes. RD will adjust EPHP supplement and add to meals instead of medpass. Lab / Micro Data 08/22/23 21:35 08/22/23 03:48 Labs: Laboratory Results - last 24 hr 08/22/23 09:10: Hgb 8.8 L, Hct 28.4 L 08/22/23 15:22: Hgb 8.7 L, Hct 28.0 L 08/22/23 21:35: Hgb 8.7 L, Hct 27.6 L Physical Exam Const oriented x3 and no apparent distress Resp normal respiratory effort GI soft to palpation and non-tender Assessment & Plan Assessment/Plan (1) C. difficile colitis: PLAN: Patient is being treated for C. difficile colitis. Regular diet as ordered. Hemoglobin was stable for the last 3 draws. I do not believe a source of bleeding was found on colonoscopy yesterday. Continue observation and discharge when ready per hospitalist service. Mychal Vazquez MD Pager: [facility] [address] [place] [address], [address] [place] [address] Office:
[2023-08-23] MEDS: Fluconazole 100 MG Tablet PO (09:01)
[2023-08-23 09:46] LABS: Pathologist Review Reviewed
--- NOTE | 2023-08-23 09:58 | PCM.PN.HOSP ---
Subjective Subjective Doing well, has a slight increase in oxygen requirement today we will discontinue her IV fluids Objective Data Objective Data Vital Signs: Vital Signs Temp Pulse Resp BP Pulse Ox O2 Del Method O2 Flow Rate 97.8 F 76 16 150/55 H 95 Nasal Cannula 3 08/23/23 08:58 08/23/23 08:58 08/23/23 08:58 08/23/23 08:58 08/23/23 08:58 08/23/23 08:58 08/23/23 08:58 Oxygen Flow Rate (L/min) 3 Oxygen Delivery Method Nasal Cannula Weight: 137 lb 9.095 oz Body Mass Index (BMI) 25.1 Intake & Output: Intake and Output for Last 24 Hours 08/22/23 08/23/23 08/24/23 03:59 03:59 03:59 Intake Total 1200 / 1200 3232.50 / 3232.50 1120 / 1120 Output Total 1250 / 1250 2150 / 2150 Balance -50 / -50 1082.50 / 1082.50 1120 / 1120 Medical Nutrition Assessment Dietitian: Malnutrition Criteria Met Start: 08/22/23 15:59 Freq: Status: Active Protocol: Document 08/22/23 16:01 (Rec: 08/22/23 16:01 [id number]) Nutrition Malnutrition Evidence of Malnutrition Exists Yes Malnutrition (severe): Chronic Evidenced By Suboptimal Energy Intake ( Severe),Weight Loss (Severe) Clinical Problem Chronic Disease or Condition Related Malnutrition Etiology severe related to suboptimal appetite and lung cancer Signs/Symptoms as evidenced by 21.1lbs (13.2% ) weight loss in ~2 months and estimated PO intakes <75% of needs for >1 month. Status Active Problem Recommendation Dietitian Recommendations/Changes Continue Regular diet to optimize oral intakes. RD will adjust EPHP supplement and add to meals instead of medpass. Lab / Micro Data 08/22/23 21:35 08/22/23 03:48 Labs: Laboratory Results - last 24 hr 08/21/23 16:43: Diff Path Review Reviewed 08/22/23 15:22: Hgb 8.7 L, Hct 28.0 L 08/22/23 21:35: Hgb 8.7 L, Hct 27.6 L Physical Exam Narrative General: Alert, Oriented x3, Cooperative, No apparent distress HEENT: Atraumatic, PERRLA, EOMI, Normocephalic Oral: Moist Mucosa Neck: Supple, No JVD Lungs: Diminished, Normal air movement, No rhonchi, No wheeze, No rales Cardiovascular: Regular rate, Regular Rhythm, Normal S1, Normal S2, No murmurs Abdomen: Soft, Non Tender, Non-Distended, No Hepato-splenomegaly, ostomy healthy with output Extremities: No edema, Capillary Refill Less than 3 Seconds Skin: No rashes, No breakdown Musculoskeletal: No Tenderness to Palpation of Joints or Extremities Neurological: Cranial nerves II-XII grossly intact, Motor Exam 5/5 strength throughout, Sensory exam intact to light touch and pain Psych/Mental Status: Normal Affect, Appropriate Assessment & Plan Assessment/Plan (1) Non-small cell carcinoma of left lung, stage 3: (2) Pseudomembranous enterocolitis: (3) Acute GI bleeding: (4) Anemia due to GI blood loss: PLAN: Plan 1. C. difficile colitis with lower GI bleed with acute blood loss anemia/esophageal candidiasis/GERD ? Continue with p.o. vancomycin ? Colonoscopy oddly shows a normal colon however C. difficile testing was positive ? We will continue with Diflucan for candidiasis on the EGD ? She has received 3 units PRBCs and hemoglobin appears stable ? Continue with PPI ? PT/OT for evaluation as she was little bit weak on admission though that might just simply be due to her anemia 2. Stage IIIB non-small cell lung carcinoma of the left lung/COPD ? Currently receiving chemotherapy as an outpatient ? She says that her disease so far is stable and has not progressed ? Continue with her home inhalers, currently not in exacerbation 3. HTN/HLD ? Blood pressures are stable ? Continue with her home blood pressure and cholesterol medications ? We will monitor and make adjustments as necessary 4. 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 Stable ? Continue with gabapentin DVT: SCDs Charges/Coding Visit Charges Inpatient E&M: 08803 Subs Hosp L2
[2023-08-23 10:16] LABS: Absolute Lymphocyte Count 0.47 X10^3/uL (0.83-4.51); Absolute Neutrophil Count 3.8 X10^3/uL (2.0-7.7); Basophil# 0.02 X10^3/uL; Basophil% 0.4 % (0-1); Eosinophil# 0.21 X10^3/uL; Eosinophils% 4.2 % (0-5); Hematocrit 30.7 % (37-47); Hemoglobin 9.2 g/dL (12.0-15.0); Lymphocyte # 0.47 X10^3/ul (0.83-4.51); Lymphocyte % 9.5 % (19-41); Mean Corpuscular Hgb 27.8 pg (27.0-32.0); Mean Corpuscular Volume 92.7 fL (81-99); Mean Platelet Vol. 10.4 fl (6.2-12.0); Monocyte# 0.41 X10^3/uL; Monocyte% 8.3 % (0-10); NRBC Flagged by Analyzer 0 % (0-5); Neutrophil # 3.77 X10^3/uL (2.7-7.7); Neutrophil % 76.2 % (47-70); POSITIVE DIFFERENTIAL YES; Platelet Count 179 K/mm3 (150-450); RBC Distribution Width CV 17.6 % (11.6-14.6); RBC Distribution Width SD 59.1 fl (35.1-43.9); Red Blood Count 3.31 M/mm3 (4.2-5.4)
[2023-08-23 10:20] LABS: Differential Indicated SCAN CRITERIA MET
[2023-08-23 10:31] LABS: Anion Gap 5 (5-15); BUN 6 mg/dL (7-18); BUN/Creat Ratio 9.2 RATIO (10-20); Calcium,Total 8.3 mg/dL (8.5-10.1); Chloride 109 mmol/L (98-107); Creatinine, Serum 0.65 mg/dL (0.55-1.02); EST Glomerular Filtration Rate 94 mL/min (>60); Est Glom Filt Rate - Afr Amer 114 mL/min (>60); Estimated Creatinine Clearance 39.04 ml/min; Glucose 121 mg/dL (74-106); Potassium 3.4 mmol/L (3.5-5.1); Sodium Level 143 mmol/L (136-145)
[2023-08-23] MEDS: 0.9% Saline Lock 10 ML Syringe IV (17:28)
[2023-08-23] MEDS: Furosemide 20 MG/2 ML VIAL IV (17:28)
[2023-08-23] MEDS: Gabapentin 300 MG Capsule PO (22:16)
[2023-08-23] MEDS: Mirtazapine 15 MG Tablet PO (22:16)
[2023-08-23] MEDS: Atorvastatin Calcium 10 MG Tablet PO (22:16)
[2023-08-24] VITALS (8 sets, daily range): BP systolic 127–143; BP diastolic 52–69; PULSE 74–92; RESP 16–18; TEMP 36.2–36.8; O2SAT 84–96
[2023-08-24] MEDS: Vancomycin 125 MG/5 ML Susp PO.SYRINGE PO ×3 (05:27→17:54)
[2023-08-24 07:11] LABS: Absolute Lymphocyte Count 0.58 X10^3/uL (0.83-4.51); Absolute Neutrophil Count 4.2 X10^3/uL (2.0-7.7); Basophil# 0.03 X10^3/uL; Basophil% 0.5 % (0-1); Eosinophil# 0.24 X10^3/uL; Eosinophils% 4.2 % (0-5); Hematocrit 27.8 % (37-47); Hemoglobin 8.5 g/dL (12.0-15.0); Lymphocyte # 0.58 X10^3/ul (0.83-4.51); Lymphocyte % 10.2 % (19-41); Mean Corp Hgb Conc 30.6 g/dL (32-36); Mean Corpuscular Hgb 28.4 pg (27.0-32.0); Mean Platelet Vol. 10.2 fl (6.2-12.0); Monocyte# 0.61 X10^3/uL; Monocyte% 10.7 % (0-10); NRBC Flagged by Analyzer 0 % (0-5); Neutrophil # 4.16 X10^3/uL (2.7-7.7); Neutrophil % 73.3 % (47-70); POSITIVE DIFFERENTIAL YES; Platelet Count 169 K/mm3 (150-450); RBC Distribution Width CV 17.6 % (11.6-14.6); RBC Distribution Width SD 58.8 fl (35.1-43.9); Red Blood Count 2.99 M/mm3 (4.2-5.4); White Blood Count 5.7 K/mm3 (4.4-11.0)
[2023-08-24 07:12] LABS: Differential Indicated SCAN CRITERIA MET
[2023-08-24 07:35] LABS: Anion Gap 3 (5-15); BUN 7 mg/dL (7-18); BUN/Creat Ratio 13.5 RATIO (10-20); Calcium,Total 8.2 mg/dL (8.5-10.1); Chloride 110 mmol/L (98-107); Creatinine, Serum 0.52 mg/dL (0.55-1.02); EST Glomerular Filtration Rate 122 mL/min (>60); Est Glom Filt Rate - Afr Amer 148 mL/min (>60); Estimated Creatinine Clearance 39.04 ml/min; Glucose 83 mg/dL (74-106); Potassium 3.6 mmol/L (3.5-5.1); Sodium Level 144 mmol/L (136-145)
[2023-08-24] MEDS: Montelukast 10 MG Tablet PO (09:26)
[2023-08-24] MEDS: Dicyclomine 10 MG Capsule PO (09:26)
[2023-08-24] MEDS: Fluconazole 100 MG Tablet PO (09:27)
[2023-08-24] MEDS: Lisinopril 20 MG Tablet PO (09:28)
[2023-08-24] MEDS: Colestipol 1 GM TABLET PO (09:28)
[2023-08-24] MEDS: Pantoprazole Sodium 40 MG Tablet PO (09:28)
[2023-08-24 10:07] LABS: Differential Comment SCANNED
[2023-08-24 12:44] LABS: Hematocrit 29.8 % (37-47); Hemoglobin 8.8 g/dL (12.0-15.0)
[2023-08-24] MEDS: Albuterol 2.5 MG/3 ML VIAL.NEB. INHALATION (13:21)
--- NOTE | 2023-08-24 13:49 | DCINST_ITS ---
Discharge Instructions Diet Discharge Diet: Low fat / Low cholesterol Activity Discharge Activity: Return to Normal Activity Dressing / Incision Call your doctor if you observe: Fever of 101 or Higher, Shortness of breath, Dizziness, Fainting spells, Swelling in the ankles, Chest pain and Increased palpitations (irregular heartbeat) Follow Up Care Test Results: Test results from this visit will be discussed in further detail at your follow- up appointment, if applicable. Discharge Plan Admission Admit Date/Time: 08/21/23 17:17 Attending Provider: Ervin Gan Primary Care Provider: Hernandez Mcqueen Consulting Providers: Margarita Dale; Katerin Howard Instructions Additional Instructions / Restrictions: Follow-up with your PCP to monitor your hemoglobin. Discharge Orders/Prescriptions Prescriptions: New fluconazole 100 mg Tablet 100 mg PO DAILY 7 Days Qty: 7 0RF vancomycin 125 mg capsule 125 mg PO Q6H 11 Days Qty: 44 0RF Continued gabapentin 300 mg capsule 300 mg PO QHS budesonide-formoterol [Symbicort] 160-4.5 mcg/actuation HFA aerosol inhaler 2 puff inhalation BID pantoprazole 40 mg tablet,delayed release (DR/EC) 40 mg PO DAILY Qty: 30 0RF lidocaine-prilocaine 2.5-2.5 % cream 1 applic topical ONCE PRN (Reason: PORT ACCESS) 30 Days Qty: 30 2RF albuterol sulfate 1 PUFF inhaler 2 puff inhalation Q4H PRN (Reason: SHORTNESS OF BREATH/WHEEZING ) montelukast 10 mg tablet 10 mg PO DAILY lisinopril 20 mg tablet 20 mg PO DAILY dicyclomine 10 mg capsule 10 mg PO BID Arnuity Ellipta 100 mcg/actuation blister with device 1 inh INHALATION DAILY mirtazapine 15 mg tablet 15 mg PO QHS ondansetron HCl 4 mg tablet 4 mg PO TID PRN (Reason: NAUSEA/VOMITING ) atorvastatin 10 mg tablet 10 mg PO QHS Qty: 90 3RF (DME) Hair prostethesis See Rx Instructions .Route .MEDSUPPLY Qty: 1 0RF Rx Instructions: As directed colestipol 1 gram tablet 1 g PO BID Qty: 60 1RF Referrals / Follow Up: Hernandez Mcqueen MD [Primary Care Provider] - Within 1 Week Disposition Disposition (needs filled in before D/C Order can be placed): Home, Self Care
[2023-08-24] MEDS: Furosemide 40 MG/4 ML Vial IV (14:07)
--- NOTE | 2023-08-24 14:17 | PCM.DC.SUM ---
Providers Date of Admission: 08/21/23 Primary Care Physician: Dr. Hernandez Mcqueen MD Consultations 08/21/23 19:40 Consult: Gastroenterology Routine Consulting Provider: [facility] Reason for Consult: GI bleed EMERGENT Consult: No MD Notified: Yes Date Notified: 08/21/23 Time Notified: 17:25 Method of Notification: ED Physician Initiated Consult: General Surgery Routine Consulting Provider: Margarita Dale Reason for Consult: Recent colectomy EMERGENT Consult: No Notified: Yes Date Notified: 08/21/23 Time Notified: 17:24 Method of Notification: ED Physician Initiated Reason For Visit: GIB/C DIFF COLITIS Diagnosis Discharge Diagnosis (1) Non-small cell carcinoma of left lung, stage 3: Status: Acute Code(s): C34.92 - Malignant neoplasm of unspecified part of left bronchus or lung (2) Pseudomembranous enterocolitis: Status: Acute Code(s): A04.72 - Enterocolitis due to Clostridium difficile, not specified as recurrent (3) Acute GI bleeding: Status: Acute Code(s): K92.2 - Gastrointestinal hemorrhage, unspecified (4) Anemia due to GI blood loss: Status: Acute Code(s): D50.0 - Iron deficiency anemia secondary to blood loss (chronic) Plan 1. C. difficile colitis with lower GI bleed with acute blood loss anemia/esophageal candidiasis/GERD ? Continue with p.o. vancomycin ? Colonoscopy oddly shows a normal colon however C. difficile testing was positive ? We will continue with Diflucan for candidiasis on the EGD ? She has received 3 units PRBCs and hemoglobin appears stable ? Continue with PPI ? PT/OT for evaluation as she was little bit weak on admission though that might just simply be due to her anemia 2. Stage IIIB non-small cell lung carcinoma of the left lung/COPD ? Currently receiving chemotherapy as an outpatient ? She says that her disease so far is stable and has not progressed ? Continue with her home inhalers, currently not in exacerbation 3. HTN/HLD ? Blood pressures are stable ? Continue with her home blood pressure and cholesterol medications ? We will monitor and make adjustments as necessary 4. 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 Stable ? Continue with gabapentin DVT: SCDs Medications at Discharge Home Medications albuterol sulfate 90 mcg/actuation aerosol inhaler 2 puff inhalation Q4H PRN SHORTNESS OF BREATH/WHEEZING 04/17/19 atorvastatin 10 mg tablet 10 mg PO QHS CHOLESTEROL #90 tabs 04/17/21 montelukast 10 mg tablet 10 mg PO DAILY ALLERGIES 08/21/22 lisinopril 20 mg tablet 20 mg PO DAILY BLOOD PRESSURE 12/06/22 Hair prostethesis #1 ea 01/17/23 budesonide-formoterol HFA 160 mcg-4.5 mcg/actuation aerosol inhaler (Symbicort) 2 puff inhalation BID COPD 03/18/23 gabapentin 300 mg capsule 300 mg PO QHS NERVE PAIN 03/18/23 colestipol 1 gram tablet 1 g PO BID CHOLESTEROL #60 tabs 04/16/23 pantoprazole 40 mg tablet,delayed release 40 mg PO DAILY ACID REFLUX #30 tabs 07/25/23 dicyclomine 10 mg capsule 10 mg PO BID IRRITABLE BOWELS 08/21/23 fluticasone furoate 100 mcg/actuation blister powder for inhalation (Arnuity Ellipta) 1 inh inhalation DAILY SHORTNESS OF BREATH/WHEEZING 08/21/23 lidocaine-prilocaine 2.5 %-2.5 % topical cream 1 applic topical ONCE PRN PORT ACCESS 30 days #30 grams 08/21/23 mirtazapine 15 mg tablet 15 mg PO QHS DEPRESSION 08/21/23 ondansetron HCl 4 mg tablet 4 mg PO TID PRN NAUSEA/VOMITING 08/21/23 fluconazole 100 mg tablet 100 mg PO DAILY 7 days #7 tabs 08/24/23 vancomycin 125 mg capsule 125 mg PO Q6H 11 days #44 caps 08/24/23 Hospital Course Operations None Procedures Colonoscopy and EGD Summary of Care Provided Minutes Spent on Discharge: 40 Hospital Course: Per HPI: JUAN HAWKINS, is a 73 F who presented to the emergency department at [facility] at the direction of her oncologist due to severe anemia with a hemoglobin of 5.1. The patient notes that she has been feeling a little more fatigued, a little more short of breath, and just not had the energy she typically has. She also reports that she has noted that some of the output from her ostomy has been darker than usual. She also reports the volume out of her ostomy has been a little bit higher and more watery. She was admitted in early June and taken to the OR for an ex lap and left hemicolectomy with a transverse colostomy due to ischemic left colon which was presumably caused by C. difficile. She was placed on oral vancomycin and treated through 07/13/2023 however stool never was positive for this. She complains of some mild nausea which has been chronic while she has been on chemotherapy and some mild left-sided abdominal pain that she notes is more when she coughs but its been nothing of significance. She reported that if she had been told to come the emergency department by her oncologist she probably would not have presented today. Vital signs on presentation showed temperature of 96.5, heart rate 106, blood pressure 122/57, respiratory rate 18 oxygen saturations are 95% on room air. Her CBC shows no leukocytosis or left shift. Her hemoglobin is 4.9 (baseline has been 9-11). Her coags are normal. Chemistry panel is unremarkable. Stool was assessed for C. difficile and occult blood. C. difficile was positive for toxin and PCR and occult blood was positive out of her ostomy. Case was discussed with general surgery and GI in the emergency department. GI has added on a CTA of her abdomen pelvis and plans to proceed with colonoscopy tomorrow. She has been transfused blood products and admission will be required. Hospital Course: 1. C. difficile colitis with a lower GI bleed and acute blood loss anemia/esophageal candidiasis/GERD?73-year-old female with a history of stage IIIb non-small cell lung carcinoma presented to the hospital with shortness of breath and fatigue. She was found positive for C. difficile and started on p.o. vancomycin which did significantly help with her symptoms. She did have a colonoscopy and EGD, colonoscopy showed a fairly benign colon and the EGD demonstrated some candidiasis in her lower esophagus. She was started on p.o. Diflucan as well. She has received 3 units of PRBCs and her hemoglobin appears stable, today was 8.5 and repeat corrected to 8.8. Do recommend continue with PPI as well as p.o. vancomycin for another 11 days and p.o. Diflucan for another 7. She is requiring some oxygen with ambulation at around 2 to 3 L as well as at rest, part of this is some chronic respiratory issues based on her COPD and stage III lung cancer but she also did receive a fairly significant amount of IV fluids while in the hospital she is also been given some doses of IV Lasix as well. But she will need oxygen to go home with as well as portable oxygen as she is active in the community. I discussed with her the plan for discharge today she expressed understanding of the risk benefits of going home and would like to go home today. 2. 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 Her home medications were continued where appropriate Physical Exam Narrative General: Alert, Oriented x3, Cooperative, No apparent distress HEENT: Atraumatic, PERRLA, EOMI, Normocephalic Oral: Moist Mucosa Neck: Supple, No JVD Lungs: Diminished, Normal air movement, No rhonchi, No wheeze, No rales Cardiovascular: Regular rate, Regular Rhythm, Normal S1, Normal S2, No murmurs Abdomen: Soft, Non Tender, Non-Distended, No Hepato-splenomegaly, ostomy healthy with output Extremities: No edema, Capillary Refill Less than 3 Seconds Skin: No rashes, No breakdown Musculoskeletal: No Tenderness to Palpation of Joints or Extremities Neurological: Cranial nerves II-XII grossly intact, Motor Exam 5/5 strength throughout, Sensory exam intact to light touch and pain Psych/Mental Status: Normal Affect, Appropriate Medical Records Data Medical Nutrition Assessment Dietitian: Malnutrition Criteria Met Start: 08/22/23 15:59 Freq: Status: Active Protocol: Document 08/22/23 16:01 (Rec: 08/22/23 16:01 [id number]) Nutrition Malnutrition Evidence of Malnutrition Exists Yes Malnutrition (severe): Chronic Evidenced By Suboptimal Energy Intake ( Severe),Weight Loss (Severe) Clinical Problem Chronic Disease or Condition Related Malnutrition Etiology severe related to suboptimal appetite and lung cancer Signs/Symptoms as evidenced by 21.1lbs (13.2% ) weight loss in ~2 months and estimated PO intakes <75% of needs for >1 month. Status Active Problem Recommendation Dietitian Recommendations/Changes Continue Regular diet to optimize oral intakes. RD will adjust EPHP supplement and add to meals instead of medpass. Weight / BMI Weight Weight: 137 lb 9.095 oz Body Mass Index (BMI) 25.1 ABG / Lab / Microbiology Data 08/24/23 12:31 08/24/23 07:04 Laboratory: Laboratory Results - last 24 hr 08/24/23 07:04: WBC 5.7, RBC 2.99 L, Hgb 8.5 L, Hct 27.8 L, MCV 93.0, MCH 28.4, MCHC 30.6 L, RDW Std Deviation 58.8 H, RDW Coeff of Eloisa 17.6 H, Plt Count 169, MPV 10.2, Immature Gran % (Auto) 1.100 H, Neut % (Auto) 73.3 H, Lymph % (Auto) 10.2 L, [place] % (Auto) 10.7 H, Eos % (Auto) 4.2, Baso % (Auto) 0.5, Absolute Neuts (auto) 4.2, Absolute Lymphs (auto) 0.58 L, Nucleated RBC % 0, Differential Comment SCANNED, Sodium 144, Potassium 3.6, Chloride 110 H, Carbon Dioxide 31.0, Anion Gap 3 L, BUN 7, Creatinine 0.52 L, Estim Creat Clear Calc 39.04, Est GFR (MDRD) Af Amer 148, Est GFR (MDRD) Non-Af 122, BUN/Creatinine Ratio 13.5, Glucose 83, Calcium 8.2 L 08/24/23 12:31: Hgb 8.8 L, Hct 29.8 L D/C Instructions Discharge Diet: Low fat / Low cholesterol Call your doctor if you observe: Fever of 101 or Higher, Shortness of breath, Dizziness, Fainting spells, Swelling in the ankles, Chest pain and Increased palpitations (irregular heartbeat) Meaningful Use Info Meaningful Use Diagnoses (Choose all that apply): None applicable Discharge Plan Admission Admit Date/Time: 08/21/23 17:17 Attending Provider: Ervin Gan Primary Care Provider: Hernandez Mcqueen Consulting Providers: Margarita Dale; Katerin Howard Instructions Additional Instructions / Restrictions: Follow-up with your PCP to monitor your hemoglobin. Discharge Orders/Prescriptions Prescriptions: New fluconazole 100 mg Tablet 100 mg PO DAILY 7 Days Qty: 7 0RF vancomycin 125 mg capsule 125 mg PO Q6H 11 Days Qty: 44 0RF Continued gabapentin 300 mg capsule 300 mg PO QHS budesonide-formoterol [Symbicort] 160-4.5 mcg/actuation HFA aerosol inhaler 2 puff inhalation BID pantoprazole 40 mg tablet,delayed release (DR/EC) 40 mg PO DAILY Qty: 30 0RF lidocaine-prilocaine 2.5-2.5 % cream 1 applic topical ONCE PRN (Reason: PORT ACCESS) 30 Days Qty: 30 2RF albuterol sulfate 1 PUFF inhaler 2 puff inhalation Q4H PRN (Reason: SHORTNESS OF BREATH/WHEEZING ) montelukast 10 mg tablet 10 mg PO DAILY lisinopril 20 mg tablet 20 mg PO DAILY dicyclomine 10 mg capsule 10 mg PO BID Arnuity Ellipta 100 mcg/actuation blister with device 1 inh INHALATION DAILY mirtazapine 15 mg tablet 15 mg PO QHS ondansetron HCl 4 mg tablet 4 mg PO TID PRN (Reason: NAUSEA/VOMITING ) atorvastatin 10 mg tablet 10 mg PO QHS Qty: 90 3RF (DME) Hair prostethesis See Rx Instructions .Route .MEDSUPPLY Qty: 1 0RF Rx Instructions: As directed colestipol 1 gram tablet 1 g PO BID Qty: 60 1RF Referrals / Follow Up: Hernandez Mcqueen MD [Primary Care Provider] - Within 1 Week Disposition Disposition (needs filled in before D/C Order can be placed): Home, Self Care Charges/Coding Visit Charges Inpatient E&M: 22851 Disch Hosp >30min
[2023-08-24] MEDS: 0.9% Saline Lock 10 ML Syringe IV (17:54)
== END 2023-08-24 18:14 | disposition home or self-care (01) | DRG 371 ==
LOC: ED 16:49 → PCU 17:34
PROVIDERS: Anesthesiology; Internal Medicine Gastroenterology; Admitting Provider Internal Medicine; Emergency Provider Emergency Medicine; PCP Family Medicine; Visit Provider Family Medicine
PROC: 0DJD8ZZ Inspection of Lower Intestinal Tract, Via Natural or Artificial Opening Endoscopic (ICD-10-PCS; CPT 45378; principal; 2023-08-22 11:55)
DX: A04.72 Enterocolitis due to Clostridium difficile, not specified as recurrent (principal); E43 Unspecified severe protein-calorie malnutrition; B37.81 Candidal esophagitis; D62 Acute posthemorrhagic anemia; C34.11 Malignant neoplasm of upper lobe, right bronchus or lung; K92.1 Melena; G62.0 Drug-induced polyneuropathy; J44.9 Chronic obstructive pulmonary disease, unspecified; Z93.3 Colostomy status; I10 Essential (primary) hypertension; K21.9 Gastro-esophageal reflux disease without esophagitis; E78.00 Pure hypercholesterolemia, unspecified; K58.2 Mixed irritable bowel syndrome; K44.9 Diaphragmatic hernia without obstruction or gangrene; T45.1X5A Adverse effect of antineoplastic and immunosuppressive drugs, initial encounter; Z66 Do not resuscitate; Z68.25 Body mass index [BMI] 25.0-25.9, adult; Z79.51 Long term (current) use of inhaled steroids; Z79.899 Other long term (current) drug therapy; Z86.16 Personal history of COVID-19; Z87.891 Personal history of nicotine dependence
CPT/HCPCS: 36415; 36591; 74174; 80048; 80053; 82274; 83630; 83735; 84100; 85014; 85018; 85025; 85610; 85730; 86850; 86900; 86901; 86920; 86922; 87177; 87209; 87493; 87506; 88305; 88312; 93005; 94640; 94668; 94762; 97802; 99285; J7040; J7050; J7120; P9016; Q9967; A4216; J1940; J2405; J2916

== ENCOUNTER → 2023-08-21 | Outpatient (CLI) | payer MEDICARE, MEDICAID, SELFPAY | END | disposition home or self-care (01) | LOC: LABSPEC 11:41 | PROVIDERS: PCP Family Medicine; Referring Provider Physician Assistant; Visit Provider Physician Assistant | DX: K58.9 Irritable bowel syndrome, unspecified (principal); K92.1 Melena; R19.7 Diarrhea, unspecified | CPT/HCPCS: 82274; 83630; 87177; 87209; 87493; 87506 ==

== ENCOUNTER 2023-08-28 17:21 | Emergency (ER) | payer MEDICARE, SELFPAY ==
[2023-08-28 17:22] VITALS: BP 129/64; PULSE 64; RESP 14; TEMP 36.4; O2SAT 98; BMI 25.3
--- NOTE | 2023-08-28 19:09 | EX.ED.DYSGE1 ---
HPI <KENJI Ash - Last Filed: 08/28/23 20:14> History of Present Illness Chief Complaint: Abd Pain Narrative Narrative: Patient had sigmoidectomy and colostomy done by Dr. Dale on 07/02/2023 due to ischemic colitis and C. difficile. 2 days ago the stoma popped out about an inch and the surgeon advised her to push it back in. This afternoon it popped out to a greater degree around 2 PM and she has not had stool output since. There is flatus. She has normal p.o. intake and no nausea or vomiting. PFSH <KENJI Ash - Last Filed: 08/28/23 20:14> [facility] Medical History Alopecia Arthritis Asthma Back pain Benign neoplasm of colon Cancer Cancer related pain Cardiology follow-up encounter Chronic constipation Contact with and (suspected) exposure to other viral communicable diseases COPD (chronic obstructive pulmonary disease) COVID-19 Easy bruising Encounter for education Essential hypertension Fatigue Former smoker Gastric reflux Generalized weakness High cholesterol History of echocardiogram History of edema History of irregular heartbeat History of stress test Hyperlipidemia Hypertension Hypokalemia Mild aortic stenosis Nicotine dependence Pneumonia Restless legs Shortness of breath on exertion Wears dentures Wears glasses Home Medications albuterol sulfate 90 mcg/actuation aerosol inhaler 2 puff inhalation Q4H PRN SHORTNESS OF BREATH/WHEEZING 04/17/19 [History Last Taken Unknown] atorvastatin 10 mg tablet 10 mg PO QHS CHOLESTEROL #90 tabs 04/17/21 [Rx Last Taken 08/20/23] montelukast 10 mg tablet 10 mg PO DAILY ALLERGIES 08/21/22 [History Last Taken 08/21/23] lisinopril 20 mg tablet 20 mg PO DAILY BLOOD PRESSURE 12/06/22 [History Last Taken 08/21/23] Hair prostethesis #1 ea 01/17/23 [Rx Last Taken Unknown] budesonide-formoterol HFA 160 mcg-4.5 mcg/actuation aerosol inhaler (Symbicort) 2 puff inhalation BID COPD 03/18/23 [History Last Taken 08/21/23] gabapentin 300 mg capsule 300 mg PO QHS NERVE PAIN 03/18/23 [History Last Taken 08/20/23] colestipol 1 gram tablet 1 g PO BID CHOLESTEROL #60 tabs 04/16/23 [Rx Last Taken 08/21/23] pantoprazole 40 mg tablet,delayed release 40 mg PO DAILY ACID REFLUX #30 tabs 07/25/23 [Rx Last Taken 08/21/23] dicyclomine 10 mg capsule 10 mg PO BID IRRITABLE BOWELS 08/21/23 [History Last Taken 08/21/23] fluticasone furoate 100 mcg/actuation blister powder for inhalation (Arnuity Ellipta) 1 inh inhalation DAILY SHORTNESS OF BREATH/WHEEZING 08/21/23 [History Last Taken 08/21/23] lidocaine-prilocaine 2.5 %-2.5 % topical cream 1 applic topical ONCE PRN PORT ACCESS 30 days #30 grams 08/21/23 [Rx Last Taken Unknown] mirtazapine 15 mg tablet 15 mg PO QHS DEPRESSION 08/21/23 [History Last Taken 08/20/23] ondansetron HCl 4 mg tablet 4 mg PO TID PRN NAUSEA/VOMITING 08/21/23 [History Last Taken Unknown] fluconazole 100 mg tablet 100 mg PO DAILY 7 days #7 tabs 08/24/23 [Rx Last Taken Unknown] vancomycin 125 mg capsule 125 mg PO Q6H 11 days #44 caps 08/24/23 [Rx Last Taken Unknown] Allergy/AdvReac Type Severity Reaction Status Date / Time watermelon Allergy Intermediate Hives Verified 08/28/23 17:22 Family History Father Cancer spinal Mother Alzheimer's disease Brother Pacemaker Surgical History History of amputation of finger of right hand History of appendectomy History of breast surgery History of cataract extraction History of creation of ostomy History of cystoscopy History of D&C History of hysterectomy History of toe surgery History of tonsillectomy Status post Eleno procedure Social History household members: spouse pets and animals: Yes (dogs) Smoking Status: Former smoker how long ago did patient quit smokin alcohol intake: former substance use type: does not use ROS <KENJI Ash - Last Filed: 08/28/23 20:14> ROS ED ROS Narrative Constitutional: Negative for fever, chills, malaise. GI: Negative for abdominal pain, nausea, vomiting, melena, hematochezia. : Negative for dysuria. EXAM <KENJI Ash - Last Filed: 08/28/23 20:14> Physical Exam Narrative Exam Narrative: CONST: Patient sitting in no acute distress. EYES: Normal inspection. NECK: Normal inspection. RESP: No respiratory distress, CTAB. CVS: Regular rate and rhythm, no murmur, no gallop. ABD: Soft and nontender, no guarding or rebound, nondistended. Colostomy bag on left lower abdomen with pink slightly edematous stoma sticking out into the bag approximately 6 inches. SKIN: Color normal, no rash, warm, dry, intact. EXTREMITIES: Normal appearance, no pedal edema. NEURO: Oriented x4. PSYCH: Normal affect. Const Vital Signs: 08/28/23 17:22 Temperature 97.6 F L Temperature Source Temporal Pulse Rate 64 Respiratory Rate 14 Blood Pressure 129/64 H Blood Pressure Mean 85 Pulse Ox 98 Oxygen Delivery Method Room Air <Dr. Dominik Martell, - Last Filed: 08/28/23 20:22> Physical Exam Const Vital Signs: 08/28/23 17:22 Temperature 97.6 F L Temperature Source Temporal Pulse Rate 64 Respiratory Rate 14 Blood Pressure 129/64 H Blood Pressure Mean 85 Pulse Ox 98 Oxygen Delivery Method Room Air MDM <KENJI Ash - Last Filed: 08/28/23 20:14> [facility] Narrative Medical decision making narrative: History gathered from: Patient and Patient's stoma was protruding into her bag. It appears moist, pink, and slightly edematous. I was unable to manipulate it in through the colostomy bag. Her abdomen is soft and nontender. I consulted general surgery and Dr. Queen came in to evaluate. He applied sugar to shrink the area and pushed it back into place. He applied a new colostomy bag. Patient tolerated procedure well without complications and is scheduled to follow-up in the general surgery office tomorrow. She was discharged in stable condition. <Dr. Dominik Martell DO - Last Filed: 08/28/23 20:22> [facility] Narrative Medical decision making narrative: History gathered from: Patient and Patient's stoma was protruding into her bag. It appears moist, pink, and slightly edematous. I was unable to manipulate it in through the colostomy bag. Her abdomen is soft and nontender. I consulted general surgery and Dr. Queen came in to evaluate. He applied sugar to shrink the area and pushed it back into place. He applied a new colostomy bag. Patient tolerated procedure well without complications and is scheduled to follow-up in the general surgery office tomorrow. She was discharged in stable condition. This patient was seen with a PA/THEATER TECHNICIAN Individually assessed they patient including history and physical. I have reviewed everything on the chart that is available and agree with the documentation provided by the PA/THEATER TECHNICIAN including discussion about the assessment, treatment plan, discussion, and return precautions. Patient visually examined and reviewed with Dr. Quene. Patient discharged home. We will follow-up in general surgery. Discharge Plan Triage Chief Complaint: Abd Pain ED Midlevel Provider: Shirlene Curran ED Provider: Dominik Martell Dx/Rx/DC Orders Clinical Impression: Stoma malfunction Instructions: Colostomy Dc Prescriptions: No Action gabapentin 300 mg capsule 300 mg PO QHS budesonide-formoterol [Symbicort] 160-4.5 mcg/actuation HFA aerosol inhaler 2 puff inhalation BID pantoprazole 40 mg tablet,delayed release (DR/EC) 40 mg PO DAILY Qty: 30 0RF lidocaine-prilocaine 2.5-2.5 % cream 1 applic topical ONCE PRN (Reason: PORT ACCESS) 30 Days Qty: 30 2RF albuterol sulfate 1 PUFF inhaler 2 puff inhalation Q4H PRN (Reason: SHORTNESS OF BREATH/WHEEZING ) montelukast 10 mg tablet 10 mg PO DAILY lisinopril 20 mg tablet 20 mg PO DAILY dicyclomine 10 mg capsule 10 mg PO BID Arnuity Ellipta 100 mcg/actuation blister with device 1 inh INHALATION DAILY mirtazapine 15 mg tablet 15 mg PO QHS ondansetron HCl 4 mg tablet 4 mg PO TID PRN (Reason: NAUSEA/VOMITING ) fluconazole 100 mg Tablet 100 mg PO DAILY 7 Days Qty: 7 0RF vancomycin 125 mg capsule 125 mg PO Q6H 11 Days Qty: 44 0RF atorvastatin 10 mg tablet 10 mg PO QHS Qty: 90 3RF (DME) Hair prostethesis See Rx Instructions .Route .MEDSUPPLY Qty: 1 0RF Rx Instructions: As directed colestipol 1 gram tablet 1 g PO BID Qty: 60 1RF Primary Care Provider: Hernandez Mcqueen Referrals: Hernandez Mcqueen MD [Primary Care Provider] - Activity Restrictions/Additional Instructions: Follow-up with the surgeon as scheduled tomorrow Disposition Disposition: Home, Self Care
--- NOTE | 2023-08-28 20:15 | EX.PCM.CON.S ---
Assessment & Plan Assessment/Plan (1) Prolapse of stoma: PLAN: This is a 73-year-old female status post left hemicolectomy with transverse colostomy who presents for stomal prolapse with bleeding. On exam the bleeding is limited to very superficial mucosal oozing. Stoma was significantly edematous on exam so I recommended proceeding with reduction via application of granulated sugar. Patient was receptive of this recommendation and the procedure was undertaken in the patient's emergency department room without complication. Approximately 15 packets of white table sugar were applied and manual traction was applied to the stoma. Reduction was successful and the perfusion to the mucosa appeared further improved. There was some slight mucosal bleeding with this traction, but this resolved spontaneously. Patient was fitted with new ostomy appliance and states that she will plan to keep her outpatient follow-up with Dr. Dale tomorrow. HPI Consult Data Date of Consult: 08/28/23 HPI Narrative Reason for Consultation: Prolapsed ostomy with bleeding HPI Narrative: JUAN HAWKINS, is a 73 F who presents to [facility] with her on my direction after she called the on-call line concerned about bleeding and prolapse of her ostomy. She reports that her ostomy has been prolapsed for the past couple of days, but that it only began bleeding today. She denies any significant abdominal pain with this current state of her ostomy. Labs in the emergency department were within normal limits and surgery was consulted for further management. Patient is well-known to the general surgery service first for a history of lung cancer requiring port placement and then on 07/03/2023 patient required exploratory laparotomy with left hemicolectomy by Dr. Dale due to C. difficile colitis. She confirms that she is still on antibiotic therapy for this condition. Just last month patient was admitted to the hospital for evaluation of complaints of melena and some associated anemia. No endoscopic findings were made by gastroenterology. [facility] Medical History Alopecia Arthritis Asthma Back pain Benign neoplasm of colon Cancer Cancer related pain Cardiology follow-up encounter Chronic constipation Contact with and (suspected) exposure to other viral communicable diseases COPD (chronic obstructive pulmonary disease) COVID-19 Easy bruising Encounter for education Essential hypertension Fatigue Former smoker Gastric reflux Generalized weakness High cholesterol History of echocardiogram History of edema History of irregular heartbeat History of stress test Hyperlipidemia Hypertension Hypokalemia Mild aortic stenosis Nicotine dependence Pneumonia Restless legs Shortness of breath on exertion Wears dentures Wears glasses Home Medications albuterol sulfate 90 mcg/actuation aerosol inhaler 2 puff inhalation Q4H PRN SHORTNESS OF BREATH/WHEEZING 04/17/19 [History Last Taken Unknown] atorvastatin 10 mg tablet 10 mg PO QHS CHOLESTEROL #90 tabs 04/17/21 [Rx Last Taken 08/20/23] montelukast 10 mg tablet 10 mg PO DAILY ALLERGIES 08/21/22 [History Last Taken 08/21/23] lisinopril 20 mg tablet 20 mg PO DAILY BLOOD PRESSURE 12/06/22 [History Last Taken 08/21/23] Hair prostethesis #1 ea 01/17/23 [Rx Last Taken Unknown] budesonide-formoterol HFA 160 mcg-4.5 mcg/actuation aerosol inhaler (Symbicort) 2 puff inhalation BID COPD 03/18/23 [History Last Taken 08/21/23] gabapentin 300 mg capsule 300 mg PO QHS NERVE PAIN 03/18/23 [History Last Taken 08/20/23] colestipol 1 gram tablet 1 g PO BID CHOLESTEROL #60 tabs 04/16/23 [Rx Last Taken 08/21/23] pantoprazole 40 mg tablet,delayed release 40 mg PO DAILY ACID REFLUX #30 tabs 07/25/23 [Rx Last Taken 08/21/23] dicyclomine 10 mg capsule 10 mg PO BID IRRITABLE BOWELS 08/21/23 [History Last Taken 08/21/23] fluticasone furoate 100 mcg/actuation blister powder for inhalation (Arnuity Ellipta) 1 inh inhalation DAILY SHORTNESS OF BREATH/WHEEZING 08/21/23 [History Last Taken 08/21/23] lidocaine-prilocaine 2.5 %-2.5 % topical cream 1 applic topical ONCE PRN PORT ACCESS 30 days #30 grams 08/21/23 [Rx Last Taken Unknown] mirtazapine 15 mg tablet 15 mg PO QHS DEPRESSION 08/21/23 [History Last Taken 08/20/23] ondansetron HCl 4 mg tablet 4 mg PO TID PRN NAUSEA/VOMITING 08/21/23 [History Last Taken Unknown] fluconazole 100 mg tablet 100 mg PO DAILY 7 days #7 tabs 08/24/23 [Rx Last Taken Unknown] vancomycin 125 mg capsule 125 mg PO Q6H 11 days #44 caps 08/24/23 [Rx Last Taken Unknown] Allergy/AdvReac Type Severity Reaction Status Date / Time watermelon Allergy Intermediate Hives Verified 08/28/23 17:22 Family History Father Cancer spinal Mother Alzheimer's disease Brother Pacemaker Surgical History History of amputation of finger of right hand History of appendectomy History of breast surgery History of cataract extraction History of creation of ostomy History of cystoscopy History of D&C History of hysterectomy History of toe surgery History of tonsillectomy Status post Eleno procedure Social History household members: spouse pets and animals: Yes (dogs) Smoking Status: Former smoker how long ago did patient quit smokin alcohol intake: former substance use type: does not use Physical Exam Const alert, oriented x3 and no apparent distress Resp normal respiratory effort GI GI Narrative: Well-healed laparotomy incision, nondistended, prolapsed left upper quadrant colostomy with associated mucosal edema?total length prolapsed estimated at 8 inches. Mucosa, notably with normal perfusion pattern and no signs of ischemia. Patient overall nontender to palpation aside from the 1 o'clock position on her stoma which was described as mild Charges/Coding Visit Charges Office Visits / Consults: 44580 OP Consult L3
== END 2023-08-28 20:27 | disposition home or self-care (01) ==
PROVIDERS: Emergency Provider Student in an Organized Health Care Education/Training Program; PCP Family Medicine; Visit Provider Student in an Organized Health Care Education/Training Program
DX: Z93.3 Colostomy status (principal); Z87.891 Personal history of nicotine dependence; Z86.16 Personal history of COVID-19
CPT/HCPCS: 99282

== ENCOUNTER → 2023-09-13 | Outpatient (CLI) | payer MEDICARE, SELFPAY ==
--- NOTE | 2023-09-13 15:36 | CT_ITS ---
INDICATION: LUNG CA MONITOR EXAMINATION: CT Chest W/ Contrast Injection TECHNIQUE: Helically acquired images were obtained of the chest following administration of IV contrast. A radiation dose optimization technique was used for this scan. 3D postprocessing images including MIPS were reviewed. IV Contrast dosage and agent: IV 100mL Isovue-300 COMPARISON: 06/11/2023. FINDINGS: Lungs: Compared to most recent chest CT on 06/11/2023, there is a decrease in size of a right upper lobe lung mass measuring 2.5 x 1.3 cm, previously 3.2 x 2 cm. There is also increased cavitation of the mass. Hyperinflation. Diffuse emphysematous changes with bullous formation more prominent in the upper lobes. Mediastinum: The cardiomediastinal silhouette is not enlarged. Stable mediastinal lymphadenopathy. Mild aortic arch and coronary artery calcifications. No obvious filling defect seen within the visualized pulmonary arteries. Stable dilatation of the main pulmonary artery measuring up to 3.7 cm in diameter. Pleura: Unremarkable Bones/Soft tissues: There are degenerative changes of the thoracic spine. Worsening chronic compression fractures of T5, T8 and T11. Upper abdomen: No visualized abnormalities in the upper abdomen. CT/Chest WITH Contrast IMPRESSION: Interval positive treatment response with decreased size of a right upper lobe cavitating lung mass as described above. No new sites of metastatic disease. Worsening chronic compression fractures of T5, T8 and T11. Cannot rule out pathologic fractures from osseous metastases. Electronically Signed: Aleks Smith MD at 23:50 EST ,
[2023-09-13] MEDS: 0.9 % NaCl (Sterile) Posiflush 10 mL IV (16:00)
== END | disposition home or self-care (01) ==
LOC: CT 15:36
PROVIDERS: PCP Family Medicine; Referring Provider Internal Medicine Medical Oncology; Visit Provider Internal Medicine Medical Oncology
DX: C34.11 Malignant neoplasm of upper lobe, right bronchus or lung (principal)
CPT/HCPCS: 71260; Q9967; A4216

== ENCOUNTER → 2023-10-24 | Outpatient (CLI) | payer MEDICARE, SELFPAY ==
[2023-10-24 12:18] LABS: Absolute Lymphocyte Count 0.73 X10^3/uL (0.83-4.51); Absolute Neutrophil Count 4.1 X10^3/uL (2.0-7.7); Basophil# 0.03 X10^3/uL; Basophil% 0.5 % (0-1); Eosinophil# 0.21 X10^3/uL; Eosinophils% 3.8 % (0-5); Hematocrit 25.8 % (37-47); Lymphocyte # 0.73 X10^3/ul (0.83-4.51); Lymphocyte % 13.1 % (19-41); Mean Corp Hgb Conc 27.1 g/dL (32-36); Mean Corpuscular Hgb 22.6 pg (27.0-32.0); Mean Corpuscular Volume 83.2 fL (81-99); Monocyte# 0.47 X10^3/uL; Monocyte% 8.4 % (0-10); NRBC Flagged by Analyzer 0 % (0-5); Neutrophil # 4.12 X10^3/uL (2.7-7.7); Neutrophil % 73.7 % (47-70); Platelet Count 220 K/mm3 (150-450); RBC Distribution Width SD 57.6 fl (35.1-43.9); White Blood Count 5.6 K/mm3 (4.4-11.0)
[2023-10-24 12:48] LABS: ALB/GLOB Ratio 0.9 RATIO (0.9-2.4); AST(SGOT) 17 U/L (15-37); Alanine Aminotransfer ALT/SGPT 17 U/L (13-56); Alkaline Phosphatase 90 U/L (45-117); Anion Gap 5 (5-15); BUN 17 mg/dL (7-18); BUN/Creat Ratio 25.3 RATIO (10-20); Calcium,Total 8.9 mg/dL (8.5-10.1); Chloride 109 mmol/L (98-107); Cholesterol 162 mg/dL (200); Creatinine, Serum 0.67 mg/dL (0.55-1.02); EST Glomerular Filtration Rate 91 mL/min (>60); Est Glom Filt Rate - Afr Amer 110 mL/min (>60); Globulin 3.4 g/dL (2.2-4.2); Glucose 85 mg/dL (74-106); High Density Lipoprotein 55 mg/dL; LDH 205 U/L (84-246); Magnesium 2.1 mg/dL (1.6-2.6); Potassium 4.5 mmol/L (3.5-5.1); Protein, Total 6.4 g/dL (6.4-8.2); Sodium Level 141 mmol/L (136-145); Triglycerides 95 mg/dL; Very Low Density Lipoprotein 19 mg/dL (5-40)
== END | disposition home or self-care (01) ==
LOC: MFPLAB 10:26
PROVIDERS: Internal Medicine Medical Oncology; PCP Family Medicine; Visit Provider Family Medicine
DX: Z00.00 Encounter for general adult medical examination without abnormal findings (principal); C34.10 Malignant neoplasm of upper lobe, unspecified bronchus or lung; Z79.899 Other long term (current) drug therapy; E78.5 Hyperlipidemia, unspecified
CPT/HCPCS: 36415; 80053; 80061; 83615; 83735; 84100; 85025

== ENCOUNTER → 2023-11-05 | Outpatient (CLI) | payer MEDICARE, MEDICAID, SELFPAY ==
--- NOTE | 2023-11-05 07:41 | CT_ITS ---
STUDY: CT CHEST WITH CONTRAST REASON FOR EXAM: Female, 73 years old. MONITOR LUNG CA following chemotherapy and radiation therapy. History of emphysema. RADIATION DOSAGE (If Supplied By Facility): CTDIvol = ( 7.36 ) mGy, DLP = ( 182.92 ) mGycm TECHNIQUE: Transaxial imaging was performed following intravenous administration of IV 100mL Isovue-370. Multiplanar coronal and sagittal images were reformatted. Individualized dose optimization techniques were used for this CT. COMPARISON: Comparison is made with prior study September 13, 2023. FINDINGS: CHEST A right-sided portacatheter is seen with the tip in the superior vena cava. Emphysematous changes with bullous formation worse in the upper lobes. Stable heterogeneous appearance of the nodule in the posterior lateral aspect of the right upper lobe. Persistent cavitary change within it. Persistent area of increased markings with focal infiltrate and/or scarring in the lateral anterior aspect of the superior segment of the right lower lobe. This has progressed as compared to prior study. Stable appearance of the left lung. New small right pleural effusion. There are calcifications of the coronary arteries. Normal mediastinum. Normal hilar regions. Normal unenhanced pulmonary arteries. There is atherosclerotic calcification of the aortic arch with tortuosity and elongation of the aortic arch and descending thoracic aorta. There are multi-level degenerative changes of the thoracic spine. Stable compression of the T5, T8 and T11 vertebrae. There is no demonstrated abnormality of the visualized upper abdomen. CT/Chest WITH Contrast IMPRESSION: Stable appearance of the heterogeneous nodule in the posterior-lateral aspect of the right upper lobe with new small right pleural effusion and there is atelectasis and/or infiltrate in the lateral anterior aspect of the right lower lobe. Electronically Signed: Juan Carlos Laguna MD at 13:08 EST ,
--- OUTSIDE RECORDS SUMMARY | 2023-11-05 07:49 | XMS RPT_ITS | CCD ---
Author Name Unknown Address [address] [place] [address] Organization [facility] Care Team Providers Care Silk Finisher Name Role Phone Salo Serrano Unavailable Hernandez Lee Unavailable LESLIE HINSON MD Primary Care Physician [phone] Salo Serrano Unavailable Hernandez Lee Unavailable IZABEL QUIÑONES MD Attending Laila HINSON MD, LESLIE Primary Care Unavailable IZABEL QUIÑONES MD Attending Laila HINSON MD, LESLIE Primary Care Unavailable LORETO EATON, DR SNOWDEN Attending Laila HINSON MD, LESLIE Primary Care Unavailable LORETO EATON, DR SNOWDEN Attending Laila HINSON MD, LESLIE Primary Care Unavailable LIS SWANSON Consulting Unavailable NICHOLAS EATON, IZABEL Sims Attending Laila HINSON MD, LESLIE Primary [facility] Unavailable Allergies Allergy Classification Reported Allergen(s) Allergy Type Date of Onset Reaction(s) Facility (6 sources) watermelon preparation Drug Allergy 02-12-2018 [facility] Work Phone: Medications Current Medications Medication Drug Class(es) Dates Sig (Normalized) Sig (Original) 8 hr acetaminophen 650 mg extended release oral tablet (1 source) Start: 12-13-2022 End: 12-16-2022 acetaminophen 650 mg oral tablet, extended release Dose : 650 mg = 1 tab(s), Oral, q8h, PRN as needed for pain, X 3 day(s), # 24 tab(s), 0 Refill(s), 12/16/22 9:18:00 EST, Pharmacy: [facility] 074, 157.5, cm, 12/13/22 6:00:00 EST, Height Start Date: 12/13/22 Stop Date: 12/16/22 Status: Ordered Albuterol (Eqv-Proventil HFA) 90 mcg/inh inhalation aerosol (4 sources) Start: 12-11-2022 take 2 puff(s) by inhalation every four hours as needed for wheezing Albuterol (Eqv-Proventil HFA) 90 mcg/inh inhalation aerosol 2 puff(s), Inhalation, q4h, PRN as needed for wheezing, 0 Refill(s) Start Date: 12/11/22 Status: Ordered atenolol 25 mg oral tablet (4 sources) beta-Adrenergic Chad Start: 11-29-2022 atenolol 25 mg oral tablet Dose : 25 mg = 1 tab(s), Oral, qAM, 0 Refill(s) Start Date: 11/29/22 Status: Ordered Completed/Discontinued Medications Medication Drug Class(es) Dates Sig (Normalized) Sig (Original) alendronic acid 70 mg oral tablet (2 sources) Bisphosphonate Start: 10-08-2018 take 1 tablet by mouth every week alendronate (FOSAMAX) 70 mg tablet TAKE 1 TABLET BY MOUTH ONCE EACH WEEK. 12 tablet 3 10/08/2018 Active Problems Active Problems Problem Classification Problem Date Documented Date Episodic/Chronic Acquired foot deformities (2 sources) Acquired hallux rigidus; Translations: [Hallux rigidus, unspecified foot] Onset: 06-08-2015 06-08-2015 Chronic Asthma (4 sources) Asthma 11-14-2022 Chronic Cancer of bronchus; lung (4 sources) Malignant tumor of lung 11-14-2022 Chronic Cardiac dysrhythmias (2 sources) Ventricular premature beats; Translations: [Ventricular premature depolarization] Onset: 04-05-2016 04-05-2016 Chronic Chronic obstructive pulmonary disease and bronchiectasis (2 sources) Emphysematous bronchitis; Translations: [Chronic obstructive pulmonary disease, unspecified] Onset: 12-24-2016 12-24-2016 Chronic Disorders of lipid metabolism (6 sources) Hyperlipidemia; Translations: [Hyperlipidemia, unspecified] 02-26-2014 Chronic Esophageal disorders (2 sources) Gastroesophageal reflux disease; Translations: [Gastro-esophageal reflux disease without esophagitis] Onset: 06-08-2015 06-08-2015 Chronic Essential hypertension (6 sources) Essential hypertension; Translations: [Essential (primary) hypertension] Onset: 12-06-2016 12-06-2016 Chronic Heart valve disorders (4 sources) Aortic valve stenosis 11-14-2022 Chronic Lymphadenitis (1 source) Mediastinal lymphadenopathy 12-27-2022 Episodic Residual codes; unclassified (4 sources) Tobacco user 11-14-2022 Episodic Past or Other Problems Problem Classification Problem Date Documented Date Episodic/Chronic Cardiac dysrhythmias (2 sources) Sinus bradycardia; Translations: [Bradycardia, unspecified] Onset: 12-24-2016 12-24-2016 Episodic Genitourinary symptoms and ill-defined conditions (2 sources) Microscopic hematuria; Translations: [Other microscopic hematuria] Onset: 12-08-2015 12-08-2015 Episodic Other acquired deformities (2 sources) Defect of articular cartilage; Translations: [Other specified acquired deformities of musculoskeletal system] Onset: 02-19-2015 10-23-2021 Episodic Other hematologic conditions (2 sources) Secondary polycythemia; Translations: [Secondary polycythemia] Onset: 12-24-2016 12-24-2016 Episodic Sprains and strains (2 sources) Sprain of right ankle; Translations: [Sprain of unspecified ligament of right ankle, initial encounter] Onset: 06-04-2017 06-04-2017 Episodic Results Test Name Value Interpretation Reference Range Facil ity Vital Signs Date Time Vital Sign Value Performing Clinician Faci lity 04-10-2023 14:58-0400 Diastolic Blood Pressure Non-Invasive [address] ISI DANGELO MD [facility] 04-10-2023 14:58-0400 Heart rate 85 /min DR ISI DANGELO MD [facility] 04-10-2023 14:58-0400 Respiratory rate 18 /min DR ISI DANGELO MD [facility] 04-10-2023 14:58-0400 Systolic Blood Pressure Non-Invasive [address] ISI DANGELO MD [facility] 04-10-2023 14:57-0400 Diastolic Blood Pressure Non-Invasive [address] ISI DANGELO MD [facility] 04-10-2023 14:57-0400 Heart rate 86 /min DR ISI DANGELO MD [facility] 04-10-2023 14:57-0400 Respiratory rate 22 /min DR ISI DANGELO MD [facility] 04-10-2023 14:57-0400 Systolic Blood Pressure Non-Invasive [address] ISI DANGELO MD [facility] 04-10-2023 14:39-0400 Diastolic Blood Pressure Non-Invasive [address] ISI DANGELO MD [facility] 04-10-2023 14:39-0400 Heart rate 87 /min DR ISI DANGELO MD [facility] 04-10-2023 14:39-0400 Reason For Taking VItal Signs DR ISI DANGELO MD [facility] 04-10-2023 14:39-0400 Respiratory rate 21 /min DR ISI DANGELO MD [facility] 04-10-2023 14:39-0400 Systolic Blood Pressure Non-Invasive [address] ISI DANGELO MD [facility] 04-10-2023 14:30-0400 Heart rate 81 /min DR ISI DANGELO MD [facility] 04-10-2023 14:25-0400 Heart rate 82 /min DR ISI DANGELO MD [facility] 04-10-2023 14:20-0400 Heart rate 84 /min DR ISI DANGELO MD [facility] 04-10-2023 11:41-04[address] Blood Pressure Cuff Size DR ISI DANGELO MD [facility] 04-10-2023 11:41-[address] ISI DANGELO MD [facility] 04-10-2023 11:41-[address] ISI DANGELO MD [facility] 04-10-2023 11:41-0400 Body temperature 98.42 [degF] DR ISI DANGELO MD [facility] 04-09-2023 14:50-0400 Body height 157.[address] ISI DANGELO MD [facility] 04-09-2023 14:50-0400 Body weight [address] ISI DANGELO MD [facility] 04-09-2023 14:50-0400 Body weight 25.8 kg/m2 DR ISI DANGELO MD [facility] 12-13-2022 14:39-0500 Heart rate 82 /min IZABEL QUIÑONES MD [facility] 12-13-2022 14:39-0500 Reason For Taking VItal Signs IZABEL QUIÑONES MD [facility] 12-13-2022 14:27-0500 Heart rate 83 /min IZABEL QUIÑONES MD [facility] 12-13-2022 14:27-0500 Reason For Taking VItal Signs IZABEL QUIÑONES MD [facility] 12-13-2022 14:15-0500 Heart rate 83 /min IZABEL QUIÑOENS MD [facility] 12-13-2022 14:15-0500 Reason For Taking VItal Signs IZABEL QUIÑONES MD [facility] 12-13-2022 12:30-0500 Diastolic Blood Pressure Non-Invasive 74 1 IZABEL QUIÑONES MD [facility] 12-13-2022 12:30-0500 Mean blood pressure 91 mm[Hg] IZABEL QUIÑONES MD [facility] 12-13-2022 12:30-0500 Systolic Blood Pressure Non-Invasive 136 1 IZABEL QUIÑONES MD [address] [place] [address] 12-13-2022 12:15-0500 Diastolic Blood Pressure Non-Invasive 95 1 IZABEL QUIÑONES MD [address] [place] [address] 12-13-2022 12:15-0500 Mean blood pressure 109 mm[Hg] IZABEL QUIÑONES MD [address] [place] [address] 12-13-2022 12:15-0500 Systolic Blood Pressure Non-Invasive 146 1 IZABEL QUIÑONES MD [address] [place] [address] 12-13-2022 12:00-0500 Mean blood pressure 97 mm[Hg] IZABEL QUIÑONES MD [address] [place] [address] 12-13-2022 12:00-0500 Systolic Blood Pressure Non-Invasive 154 1 IZABEL QUIÑONES MD [address] [place] [address] 12-13-2022 11:26-0500 Heart rate 72 /min IZABEL QUIÑONES MD [address] [place] [address] 12-13-2022 11:26-0500 Respiratory rate 18 /min IZABEL QUIÑONES MD [facility] 12-13-2022 10:30-0500 Diastolic blood pressure 80 mm[Hg] IZABEL QUIÑONES MD [address] [place] [address] 12-13-2022 10:30-0500 Mean blood pressure 117 mm[Hg] IZABEL QUIÑONES MD [address] [place] [address] 12-13-2022 10:30-0500 Systolic blood pressure 179 mm[Hg] IZABEL QUIÑONES MD [address] [place] [address] 12-13-2022 10:15-0500 Diastolic blood pressure 79 mm[Hg] IZABEL QUIÑONES MD [facility] 12-13-2022 10:15-0500 Mean blood pressure 114 mm[Hg] IZABEL QUIÑONES MD [facility] 12-13-2022 10:15-0500 Systolic blood pressure 174 mm[Hg] IZABEL QUIÑONES MD [facility] 12-13-2022 10:00-0500 Diastolic blood pressure 77 mm[Hg] IZABEL QUIÑONES MD [facility] 12-13-2022 10:00-0500 Mean blood pressure 115 mm[Hg] IZABEL QUIÑONES MD [facility] 12-13-2022 10:00-0500 Systolic blood pressure 175 mm[Hg] IZABEL QUIÑONES MD [facility] 12-13-2022 09:33-0500 Blood Pressure Location IZABEL QUIÑONES MD [address] [place] [address] 12-13-2022 09:30-0500 Blood Pressure Location IZABEL QUIÑONES MD [facility] 12-13-2022 08:52-0500 Body temperature 97.88 [degF] IZABEL QUIÑONES MD [facility] 12-13-2022 08:52-0500 Respiratory rate 16 /min IZABEL QUIÑONES MD [facility] 12-13-2022 06:00-0500 Blood Pressure Cuff Size IZABEL QUIÑONES MD [facility] 12-13-2022 06:00-0500 Blood Pressure Method IZABEL QUIÑONES MD [facility] 12-13-2022 06:00-0500 Body height 157.5 cm IZABEL QUIÑONES MD [facility] 12-13-2022 06:00-0500 Body temperature 96.08 [degF] IZABEL QIUÑONES MD [facility] 12-13-2022 06:00-0500 Body weight 66.9 kg IZABEL QUIÑONES MD [facility] 12-13-2022 06:00-0500 Heart rate 85 /min IZABEL QUIÑONES MD [address] [place] [address] 12-11-2022 09:21-0500 Blood Pressure Cuff Size IZABEL QUIÑONES MD [address] [place] [address] 12-11-2022 09:21-0500 Blood Pressure Location IZABEL QUIÑONES MD [address] [place] [address] 12-11-2022 09:21-0500 Blood Pressure Method IZABEL QUIÑONES MD [address] [place] [address] 12-11-2022 09:21-0500 Body height 160 cm IZABEL QUIÑONES MD [facility] 12-11-2022 09:21-0500 Body temperature 96.98 [degF] IZABEL QUIÑONES MD [facility] 12-11-2022 09:21-0500 Body weight 66.9 kg IZABEL QUIÑONES MD [address] [place] [address] 12-11-2022 09:21-0500 Diastolic Blood Pressure Non-Invasive 93 1 IZABEL QUIÑONES MD [facility] 12-11-2022 09:21-0500 Heart rate 81 /min IZABEL QUIÑONES MD [address] [place] [address] 12-11-2022 09:21-0500 Systolic Blood Pressure Non-Invasive 157 1 IZABEL QUIÑONES MD [address] [place] [address] 12-11-2022 08:50-0500 SaO2% (BldA) [Mass fraction] 95.2 % IZABEL QUIÑONES MD [facility] Encounters Encounter Date Encounter Type Care Provider Facility Start: 04-10-2023 End: 04-10-[address] ISI DANGELO MD Facility:A Start: 04-10-2023 End: 04-10-[address] ISI DANGELO MD [facility] Start: 03-26-2023 Telephone encounter Leslie Hinson MD Work Phone: Internal Medicine [facility] Procedures Date Procedure Procedure Detail Performing Clinician Start: 05-15-2019 Mammography Sarah reyna MA Start: 07-04-2016 Adult depression scr eening assessment Sarah Calhoun MA Start: 03-18-2013 Colonoscopy Sarah reyna MA Abdominal hysterectomy YOVANNY QUIÑONES MD Plan of Treatment Date Care Activity Detail Author Start: 06-28-2023 Influenza vaccination INFLUENZA (Sea son Ended) [facility] Start: 03-18-2023 Colonoscopy COLONOSCOPY [facility] Start: 03-18-2023 COLORECTAL CANCER SCREENING COLORECTAL CANCER SCREENING [facility] Start: 12-20-2022 LIPID SCREEN LIPID SCREEN [facility] Start: 10-28-2022 ADVANCE DIRECTIVE DISCUSSION ADVANCE DIRECTIVE DISCUSSION [facility] Start: 10-28-2022 DEPRESSION ASSESSMENT DEPRESSION ASS ESSMENT [facility] Start: 06-28-2022 Influenza vaccination INFLUENZA (#1) [facility] Start: 03-18-2022 DIABETES SCREEN DIABETES SCREEN [facility] Start: 10-28-2021 ADVANCE DIRECTIVE DISCUSSION ADVANCE DIRECTIVE DISCUSSION [facility] Start: 05-15-2020 Mammography MAMMOGRAM [facility] Start: 05-02-2019 ANNUAL PCP TEAM SUPERINTENDENT SANITATION VICTORIA DISEASE VISIT ANNUAL PCP TEAM CHRONIC DISEASE VISIT [facility] Start: 07-04-2017 Adult depression scr eening assessment DEPRESSION SCREENING [facility] Start: 1999 SHINGRIX VACCINE (1 of 2) SHINGRIX V ACCINE (1 of 2) [facility] Start: 1994 COLOGUARD (FIT-DNA) COLOGUARD (FIT-D NA) [facility] Start: [address] [facility] Start: 1994 FECAL OCCULT BLOOD FECAL OCCULT BLOO D [facility] Start: 1994 SIGMOIDOSCOPY SIGMOIDOSCOPY [facility] Start: 1979 Zoledronic acid therapy ALPHA- 1 ANTITRYPSIN DEFICIENCY SCREENING [facility] Start: 01-09-1968 Urine microalbumin profile DTAP,TDAP ,TD (1 - Tdap) [facility] Start: 1967 BP CONTROLLED (<130/80) BP CONTROLLE D (<130/80) [facility] Start: 1967 SPIROMETRY SPIROMETRY [facility] Start: 1949 COVID-19 VACCINE (#1) COVID-19 VACCI NE (#1) [facility] Immunizations Immunization Date Immunization Notes Care Provider Caesar noriega 12-13-2022 influenza, high-dose , quadrivalent IZABEL QUIÑONES MD [facility] 07-29-2017 influenza, high dose seasonal, preservative-free Sarah Calhoun MA [facility] 08-10-2016 influenza, high dose seasonal, preservative-free Sarah Calhoun [facility] Work Phone: 03-15-2016 pneumococcal conjuga te vaccine, 13 valent Sarah Calhoun MA [facility] 07-22-2015 influenza, seasonal, injectable Sarah Calhoun MA [facility] 07-28-2014 influenza, seasonal, injectable Sarah Calhoun MA [facility] 02-26-2014 pneumococcal polysaccharide vaccine, 23 valent Sarah Calhoun MA [facility] Payers Date Payer Category Payer Private Health Insurance [id number] 2022 Private Health Insurance [id number] 2022 Private Health Insurance [id number] 2022 Private Health Insurance [id number] 2019 Unknown [facility] AND BL[facility] SHIELD ANTHEM MEDIBLUE O [id number] 2019-Present [phone] [address] [place] [address] O [id number] 1950 Unknown [id number] 1949 Unknown [id number] 1949 Unknown [id number] 1949 Unknown [id number] 1950 Unknown [id number] Social History Date Type Detail Facility [facility]: [facility]17-[facility] End: 11-04-2015 History of tobacco use Current smoker [facility] End: 11-04-2015 History of tobacco use Cigarette Smoker [facility] Start: 11-17-2015 Cigarettes smoked cu rrent (pack per day) - Reported 0.3 [facility] Start: 11-17-2015 Tobacco use and exposure Smoke less tobacco non-user [facility] Start: 09-15-2018 Alcohol intake 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 non-dr twx operator of alcohol (finding) [facility] Start: 1950 Sex Assigned At Not on file C [facility] Start: 12-11-2022 Tobacco smoking status Light t obacco smoker (finding) [facility] Medical Equipment Procedure Code Equipment Code Equipment Origin al Text Equipment Identifier Dates [id number] Implant - [id number] Start: 06-15-2015 Functional Status Date Assessment Result Facility 04-10-2023 Functional Status ID band on, Allergy Band on, Bed in low position, Wheels locked, Upper/Half-Length side-rails up, Safety level maintained [facility] 04-10-2023 Functional Status [facility] 04-10-2023 Functional Status [facility] 04-09-2023 Functional Status Sensory Deficits None [facility] 12-13-2022 Functional Status Up to chair, Warm blankets [facility] 12-13-2022 Functional Status Lunch Percent [address] [facility] 12-13-2022 Functional Status [facility] 12-13-2022 Functional Status Room check performed [facility] 12-11-2022 Functional Status Sensory Deficits None [facility] Mental Status Date Assessment Result Facility 04-10-2023 Mental Status Oriented x 4 [facility] 04-10-2023 Mental Status [facility] 12-13-2022 Mental Status Oriented x 4, Follows simple commands [facility] Clinical Notes 12-06-2016 to 04-10-2023 Telephone Encounter - Era Dyson Ismael LPN - 03/26/2023 11:22 AM EDTTiffrandy Calhoun MA - 06/20/2022 8:40 AM EDT Note Date & Type Note Facility 04-10-2023 Note Sheela Zhang: SIGN, AUTHOR, PERFORM JARED Atwood: SIGN, AUTHOR JARED Atwood: AUTHOR Event Display: CT Procedure Record Authored Date: CT Procedure Record Summary Primary Physician: Finalized Date/Time: 04/10/23 15:00:07 Pt. Name: SHRUTHIJUAN Levi Chadwick/Sex: 1950 Female Med Rec #: [id number] Physician: Financial #: [id number] Pt. Type: O Room/Bed: / Admit/Disch: 04/10/23 11:09:00 - Institution: Allergies identified in patient's electronic medical record at time of printing on 04/10/23 Entry 1 Substance Watermelon Reaction Type Allergy Last Modified By: Jyoti Thomas RN 11/14/22 10:05:05 Case Attendance- CT Entry 1 Entry 2 Entry 3 Case Attendee ILS SWANSON MD, Sheela Montelongo Role Performed Radiologist Procedure Procedure Nurse Delivery Recruiter Details Time In 04/10/23 13:14:00 04/10/23 13:03:00 04/10/23 13:03:00 Time Out 04/10/23 14:29:00 04/10/23 14:32:00 04/10/23 14:33:00 Procedure/Preference CT Biopsy Neck (SN) CT Biopsy Neck (SN) CT Biopsy Neck (SN) Card Last Modified By: JARED Atwood RN Jennifer M Fichter, RN Jennifer M 04/10/23 14:28:41 04/10/23 14:32:07 04/10/23 14:32:07 Radiology Procedures- CT Entry 1 Procedure/Preference CT Biopsy Neck (SN) Actual Procedure CT BIOPSY NECK Card Actual Procedure ct biopsy neck Primary Procedure Yes Continued Primary Surgeon LIS SWANSON MD Anesthesia/Sedation IV Sedation, Local Type Additional Procedure Times Start 04/10/23 13:15:00 Stop 04/10/23 14:29:00 Specialty Service SN Radiology Procedure EBL 0 mL Last Modified By: JARED Atwood 04/10/23 14:29:25 Cultures and Specimens- CT Entry 1 Kind Specimen Type Nodule Date/Time 04/10/23 14:15:00 Source l neck Last Modified By: JARED Atwood 04/10/23 14:19:24 General Case Data- CT Entry [address] 2 Case Level None Wound Class None Specialty SN Radiology Procedure ASA Class None Diagnosis Preop Diagnosis neck mass Postop Same As Preop Yes Postop Diagnosis neck mass Last Modified By: JARED Atwood 04/10/23 13:14:15 Medication Administration- CT Entry 1 Entry 2 Entry 3 Medication versed fentanyl lidocaine Time Administered 04/10/23 13:57:00 04/10/23 13:25:00 04/10/23 14:02:00 Route of Admin IV Push IV Push Local Dose 1mg 25mcg Volume 1 mL .5 mL 7 mL VORB * *Verbal Order Read Back (VORB) is required for NON- PHYSICIAN administration of medications. Administered by No No Yes Physician? Administered by: JARED Atwood RN Jennifer M KAR, MITRYAN MD Verbal Order Read LIS SWANSON MD, MITRYAN MD Back from: Last Modified By: JARED Atwood RN Jennifer M Fichter, RN Jennifer M 04/10/23 14:01:48 04/10/23 13:36:28 04/10/23 14:26:29 Entry 4 Entry 5 Entry 6 Medication fentanyl versed fentanyl Time Administered 04/10/23 13:32:00 04/10/23 13:32:00 04/10/23 13:57:00 Route of Admin IV Push IV Push IV Push Dose 25mcg 1mg 25mcg Volume .5 mL 1 mL .5 mL VORB * *Verbal Order Read Back (VORB) is required for NON- PHYSICIAN administration of medications. Administered by No No No Physician? Administered by: JARED Atwood RN Jennifer M Fichter, RN Jennifer M Verbal Order Read LIS SWANSON MD, MITRYAN MD KAR, MITRYAN MD Back from: Last Modified By: JARED Atwood RN Jennifer M Fichter, RN Jennifer M 04/10/23 13:36:28 04/10/23 13:36:28 04/10/23 14:01:48 Entry 7 Medication versed Time Administered 04/10/23 13:25:00 Route of Admin IV Push Dose 1mg Volume 1 mL VORB * *Verbal Order Read Back (VORB) is required for NON- PHYSICIAN administration of medications. Administered by No Physician? Administered by: JARED Atwood Verbal Order Read LIS SWANSON MD Back from: Last Modified By: JARED Atwood 04/10/23 14:03:25 Procedure Case Times- CT Entry 1 Patient In Procedure Patient In OR 04/10/23 13:03:00 Patient Out of OR 04/10/23 14:40:00 Procedure Start/Stop Procedure Start Time 04/10/23 13:15:00 Procedure Stop Time 04/10/23 14:29:00 Last Modified By: JARED Atwood 04/10/23 14:46:36 Immediate Post Procedure Note- CT Entry 1 Immediate Post Yes Findings 20Gx14 cores of left Procedure Note parotid lesion displayed for Physician to review Closure Technique Closure Technique Primary Last Modified By: JARED Atwood 04/10/23 14:28:14 Immediate Post Procedure Note- CT Signed By: LIS SWANSON MD 04/10/23 14:27 Allergy Information- CT Entry 1 Allergies Reviewed? Yes Allergies Reviewed Medical Record With Last Modified By: JARED Atwood 04/10/23 13:09:04 Radiology Protocols/Time Out- CT Entry 1 Preprocedure Clinician Verifies Correct patient ID When Clinically Confirmation of correct using name & date Indicated side(s) and site(s), or MRN, Accurate Correct diagnostic and procedure, complete radiology tests Informed Consent available OR/Procedure Room/Bedside Time 04/10/23 13:15:00 Clinician Verifies Correct patient identity including EMR & records using name and date or medical record number, Accurate procedure consent form, Correct patient position, Necessary equipment is available, Anticipated non-routine events with surgical team (case duration, estimated blood loss, patient specific concerns)., Shea patient factors for recovery and management identified with surgical team. When Applicable Confirmation correct Team Members LIS SWANSON MD, side and site marked, Present for Time Out JARED Atwood, Confirm/obtain preop Lybrate SodaHead antibiotic order., Alcohol based prep dry, Double verification of sterility indicators complete Instrument Sterility Team Members LIS SWANSON MD Verifying Sterility Procedure CT Biopsy Neck (SN) Last Modified By: JARED Atwood 04/10/23 13:15:59 Skin Prep - CT Entry [address] Biopsy Neck (SN) Skin Prep Prep Area Abdomen Side Right By [employer] Prep Agents Chloraprep Hair Removal Method N/A Last Modified By: JARED Atwood 04/10/23 13:52:42 Patient Positioning - CT Entry [address] Biopsy Neck (SN) Body Position OP Supine Feet Uncrossed? Yes Pressure Points Yes Checked Last Modified By: JARED Atwood 04/10/23 13:53:00 Radiology Procedure Plan - CT Entry 1 Radiology - Nursing Care Plan Outcome Statement The patient Outcome Statement The patient receives demonstrates knowledge Cont. appropriate of the expected medication(s), safely responses to the administered during the operative/invasive perioperative/invasive procedure., The period., The patient is patient's value system, free from signs and lifestyle, ethnicity, symptoms of electrical and culture are injury., The patient is considered, respected, at or returning to and incorporated in the normothermia at the perioperative plan of conclusion of the care., The patient is immediate free from signs and postoperative/invasive symptoms of infection., period. The patient is free from signs and symptoms of injury related to positioning. Radiology - Action Plan Action Plan - Patient demonstrates Outcome Statement knowledge of the expected reseponses to the invasive procedure, Patient's value system, lifestyle, ethnicity, and culture are considered, respected, and incorporated in the perioperative plan of care., Patient is free from signs and symptoms of infection., Patient is free from signs and symptoms of injury related to positioning., Patient is free from signs and symptoms of chemical injury., Patient receives appropriate medication(s), safely administered during the perioperative period. Outcomes Met? Yes Silk Finisher JARED Atwood Completing Procedure Plan Last Modified By: JARED Atwood 04/10/23 13:14:00 Radiology Lines and Procedures- CT Entry 1 Radiology Sedation Case Times Sedation Start Time 04/10/23 13:25:00 Sedation Stop Time 04/10/23 14:29:00 Sedation Total Time 1 hour 5 minutes Radiology - Fluid/Drainage RAD - CT Guidewires, Cath... [place] MedEasy Biopsy Needle [id number] Radiology Urinary Catheter Radiology - CT Other Items Trays/Kits Custom Procedure Kit Radiology Contrast Contrast Used? Yes Dose 75 mL Radiology Procedure Site Site/Location l neck Site Condition No complications Dressing Type Bandaids Technologist Notes gel foam used, patient tolerated biopsy , successful x 14 Last Modified By: JARED Atwood 04/10/23 14:33:22 Transfer Post Procedure- CT Entry 1 RAD - Transport to Recovery Patient Transported IV Via Cart With Post-op Destination Receiving Transported By JARED Atwood Post Procedure Time Out Double Verification Yes Date/Time Verified 04/10/23 14:34:00 of ID band on patient Completed Verfied ID Band on JARED Atwood by Last Modified By: JARED Atwood 04/10/23 14:33:27 Case Comments <None> Finalized By: Sheela Zhang Document Signatures Signed By: JARED Atwood 04/10/23 14:46 Sheela Zhang 04/10/23 15:00 [facility] 04-10-2023 Procedure note Brief IR Post Procedure Note - Outpatient Pre Procedure Dx: Left parotid lesion, non-dx FNA Post Procedure Dx: Same Procedure: 1. CT core biopsy University Extension Specialist: Steve Senior Administrative Associate: None Anesthesia: Local, moderate sedation EBL: Minimal Complications:None Status: Stable Findings: 1. 14 x 20G cores of left parotid lesion; due to small size, cores were scant. Intraop CTA performed to avoid ECA branches. No immediate bleeding. Some gelfoam slurry injected for added hemostasis. Lidocaine infiltrated deep to the lesion. No visible facial nerve palsy immediately post procedure. Plan: 1. VS check then d/c home Full report to follow. Orders in Cerner. Lis Swanson MD Vascular & Interventional Radiology [facility] ([facility]) [email or web address] Pager: [phone] [facility] Dept (20/05): [phone] [facility] [id number] [facility] Digitally Signed by LIS SWANSON MD on 04/10/2023 03:26 PM [facility] 04-10-[address] Procedure Record Summary Primary Physician: Finalized Date/Time: 04/10/23 15:00:07 Pt. Name: JUAN HAWKINS Levi Chadwick/Sex: 1950 Female Med Rec #: [id number] Physician: Financial #: [id number] Pt. Type: O Room/Bed: / Admit/Disch: 04/10/23 11:09:00 - Institution: Allergies identified in patient's electronic medical record at time of printing on 04/10/23 Entry 1 Substance Watermelon Reaction Type Allergy Last Modified By: Jyoti Thomas RN 11/14/22 10:05:05 Case Attendance- CT Entry 1 Entry 2 Entry 3 Case Attendee LIS SWANSON MD, RN Sheela Alcantara Role Performed Radiologist Procedure Procedure Nurse Delivery Recruiter Details Time In 04/10/23 13:14:00 04/10/23 13:03:00 04/10/23 13:03:00 Time Out 04/10/23 14:29:00 04/10/23 14:32:00 04/10/23 14:33:00 Procedure/Preference CT Biopsy Neck (SN) CT Biopsy Neck (SN) CT Biopsy Neck (SN) Card Last Modified By: JARED Atwood RN Jennifer M Fichter, RN Jennifer M 04/10/23 14:28:41 04/10/23 14:32:07 04/10/23 14:32:07 Radiology Procedures- CT Entry 1 Procedure/Preference CT Biopsy Neck (SN) Actual Procedure CT BIOPSY NECK Card Actual Procedure ct biopsy neck Primary Procedure Yes Continued Primary Surgeon LIS SWANSON MD Anesthesia/Sedation IV Sedation, Local Type Additional Procedure Times Start 04/10/23 13:15:00 Stop 04/10/23 14:29:00 Specialty Service SN Radiology Procedure EBL 0 mL Last Modified By: JARED Atwood 04/10/23 14:29:25 Cultures and Specimens- CT Entry 1 Kind Specimen Type Nodule Date/Time 04/10/23 14:15:00 Source l neck Last Modified By: JARED Atwood 04/10/23 14:19:24 General Case Data- CT Entry [address] 2 Case Level None Wound Class None Specialty SN Radiology Procedure ASA Class None Diagnosis Preop Diagnosis neck mass Postop Same As Preop Yes Postop Diagnosis neck mass Last Modified By: JARED Atwood 04/10/23 13:14:15 Medication Administration- CT Entry 1 Entry 2 Entry 3 Medication versed fentanyl lidocaine Time Administered 04/10/23 13:57:00 04/10/23 13:25:00 04/10/23 14:02:00 Route of Admin IV Push IV Push Local Dose 1mg 25mcg Volume 1 mL .5 mL 7 mL VORB * *Verbal Order Read Back (VORB) is required for NON- PHYSICIAN administration of medications. Administered by No No Yes Physician? Administered by: JARED Atwood RN Jennifer M KAR, MITRYAN MD Verbal Order Read LIS SWANSON MD, MITRYAN MD Back from: Last Modified By: JARED Atwood RN Jennifer M Fichter, RN Jennifer M 04/10/23 14:01:48 04/10/23 13:36:28 04/10/23 14:26:29 Entry 4 Entry 5 Entry 6 Medication fentanyl versed fentanyl Time Administered 04/10/23 13:32:00 04/10/23 13:32:00 04/10/23 13:57:00 Route of Admin IV Push IV Push IV Push Dose 25mcg 1mg 25mcg Volume .5 mL 1 mL .5 mL VORB * *Verbal Order Read Back (VORB) is required for NON- PHYSICIAN administration of medications. Administered by No No No Physician? Administered by: JARED Atwood RN Jennifer M Fichter, RN Jennifer M Verbal Order Read LIS SWANSON MD, MITRYAN MD KAR, MITRYAN MD Back from: Last Modified By: JARED Atwood RN Jennifer M Fichter, RN Jennifer M 04/10/23 13:36:28 04/10/23 13:36:28 04/10/23 14:01:48 Entry 7 Medication versed Time Administered 04/10/23 13:25:00 Route of Admin IV Push Dose 1mg Volume 1 mL VORB * *Verbal Order Read Back (VORB) is required for NON- PHYSICIAN administration of medications. Administered by No Physician? Administered by: JARED Atwood Verbal Order Read LIS SWANSON MD Back from: Last Modified By: JARED Atwood 04/10/23 14:03:25 Procedure Case Times- CT Entry 1 Patient In Procedure Patient In OR 04/10/23 13:03:00 Patient Out of OR 04/10/23 14:40:00 Procedure Start/Stop Procedure Start Time 04/10/23 13:15:00 Procedure Stop Time 04/10/23 14:29:00 Last Modified By: JARED Atwood 04/10/23 14:46:36 Immediate Post Procedure Note- CT Entry 1 Immediate Post Yes Findings 20Gx14 cores of left Procedure Note parotid lesion displayed for Physician to review Closure Technique Closure Technique Primary Last Modified By: JARED Atwood 04/10/23 14:28:14 Immediate Post Procedure Note- CT Signed By: LIS SWANSON MD 04/10/23 14:27 Allergy Information- CT Entry 1 Allergies Reviewed? Yes Allergies Reviewed Medical Record With Last Modified By: JARED Atwood 04/10/23 13:09:04 Radiology Protocols/Time Out- CT Entry 1 Preprocedure Clinician Verifies Correct patient ID When Clinically Confirmation of correct using name & date Indicated side(s) and site(s), or MRN, Accurate Correct diagnostic and procedure, complete radiology tests Informed Consent available OR/Procedure Room/Bedside Time 04/10/23 13:15:00 Clinician Verifies Correct patient identity including EMR & records using name and date or medical record number, Accurate procedure consent form, Correct patient position, Necessary equipment is available, Anticipated non-routine events with surgical team (case duration, estimated blood loss, patient specific concerns)., Shea patient factors for recovery and management identified with surgical team. When Applicable Confirmation correct Team Members LIS SWANSON MD, side and site marked, Present for Time Out JARED Atwood, Confirm/obtain preop [employer] antibiotic order., Alcohol based prep dry, Double verification of sterility indicators complete Instrument Sterility Team Members LIS SWANSON MD Verifying Sterility Procedure CT Biopsy Neck (SN) Last Modified By: JARED Atwood 04/10/23 13:15:59 Skin Prep - CT Entry [address] Biopsy Neck (SN) Skin Prep Prep Area Abdomen Side Right By [employer] Prep Agents Chloraprep Hair Removal Method N/A Last Modified By: JARED Atwood 04/10/23 13:52:42 Patient Positioning - CT Entry [address] Biopsy Neck (SN) Body Position OP Supine Feet Uncrossed? Yes Pressure Points Yes Checked Last Modified By: JARED Atwood 04/10/23 13:53:00 Radiology Procedure Plan - CT Entry 1 Radiology - Nursing Care Plan Outcome Statement The patient Outcome Statement The patient receives demonstrates knowledge Cont. appropriate of the expected medication(s), safely responses to the administered during the operative/invasive perioperative/invasive procedure., The period., The patient is patient's value system, free from signs and lifestyle, ethnicity, symptoms of electrical and culture are injury., The patient is considered, respected, at or returning to and incorporated in the normothermia at the perioperative plan of conclusion of the care., The patient is immediate free from signs and postoperative/invasive symptoms of infection., period. The patient is free from signs and symptoms of injury related to positioning. Radiology - Action Plan Action Plan - Patient demonstrates Outcome Statement knowledge of the expected reseponses to the invasive procedure, Patient's value system, lifestyle, ethnicity, and culture are considered, respected, and incorporated in the perioperative plan of care., Patient is free from signs and symptoms of infection., Patient is free from signs and symptoms of injury related to positioning., Patient is free from signs and symptoms of chemical injury., Patient receives appropriate medication(s), safely administered during the perioperative period. Outcomes Met? Yes Silk Finisher JARED Atwood Completing Procedure Plan Last Modified By: JARED Atwood 04/10/23 13:14:00 Radiology Lines and Procedures- CT Entry 1 Radiology Sedation Case Times Sedation Start Time 04/10/23 13:25:00 Sedation Stop Time 04/10/23 14:29:00 Sedation Total Time 1 hour 5 minutes Radiology - Fluid/Drainage RAD - CT Guidewires, Cath... [place] MedEasy Biopsy Needle [id number] Radiology Urinary Catheter Radiology - CT Other Items Trays/Kits Custom Procedure Kit Radiology Contrast Contrast Used? Yes Dose 75 mL Radiology Procedure Site Site/Location l neck Site Condition No complications Dressing Type Bandaids Technologist Notes gel foam used, patient tolerated biopsy , successful x 14 Last Modified By: JARED Atwood 04/10/23 14:33:22 Transfer Post Procedure- CT Entry 1 RAD - Transport to Recovery Patient Transported IV Via Cart With Post-op Destination Receiving Transported By JARED Atwood Post Procedure Time Out Double Verification Yes Date/Time Verified 04/10/23 14:34:00 of ID band on patient Completed Verfied ID Band on JARED Atwood by Last Modified By: JARED Atwood 04/10/23 14:33:27 Case Comments Finalized By: Sheela Zhang Document Signatures Signed By: JARED Atwood 04/10/23 14:46 Sheela Zhang 04/10/23 15:00 [facility] 04-10-2023 Hospital Discharg e instructions Patient Education 04/10/2023 12:44:59 Radiology- Procedure/Biopsy 02/10/2020 (CUSTOM) [place] Radiology Procedure/Biopsy Discharge Instructions Interventional Radiology [facility] [address] [address] Today, you had a biopsy of your parotid gland. This procedure/biopsy was done to help your doctor diagnose and treat the signs and symptoms you have been experiencing. These instructions should be followed after your procedure to reduce the chance of experiencing complications. Please follow the instructions below to reduce the chance of experiencing complications. Diet: Resume your normal diet as tolerated. Drink extra fluids. Activity: Rest for the remainder of the day. You may resume your normal activity tomorrow. You may bathe/shower after 24 hours. Do not soak or submerge site (including swimming or hot tubs) until a scab forms. No heavy lifting, pushing, or straining. Dressing: Check the site for bleeding. Apply pressure to the site if bleeding excessively and call your physician. Change the band aid as needed; it can be removed after 24 hours. Keep the site dry at all times until a scab forms over the site. Pain Control: The puncture site may be sore for 1 to 2 days following the procedure. Denp-dby-jhiyxsd pain medication should be used for pain or discomfort. Please check with the physician who ordered this procedure for you for their specific recommendations. If your pain is not relieved or becomes more severe, notify the physician who sent you for this procedure. Medication: Please resume resume home medications as scheduled. When to seek medical help: Lightheadedness, dizziness, or fainting. Severe pain or swelling. Severe nausea or vomiting. Infection: fever greater than 101 degrees, chills, redness, warmth, swelling, bleeding, or pus from puncture site. If you experience any of these issues during the first 24 hours, please follow the instruction below: For the first 24 hours, call [phone] After 24 hours, contact the physician who ordered this procedure for you. Obtaining test results: Please make an appointment with your doctor to obtain your test results. They are usually available within 4 to 7 business days. Do not assume everything is normal if you have not heard from your doctor or medical facility. It is important for you to follow up on all of your test results. 04/10/2023 12:44:59 Moderate Conscious Sedation, Adult, Care After Moderate Conscious Sedation, Adult, Care After These instructions provide you with information about caring for yourself after your procedure. Your health care provider may also give you more specific instructions. Your treatment has been planned according to current medical practices, but problems sometimes occur. Call your health care provider if you have any problems or questions after your procedure. What can I expect after the procedure? After your procedure, it is common: To feel sleepy for several hours. To feel clumsy and have poor balance for several hours. To have poor judgment for several hours. To vomit if you eat too soon. Follow these instructions at home: For at least 24 hours after the procedure: Do not: ?Participate in activities where you could fall or become injured. ?Drive. ?Use heavy machinery. ?Drink alcohol. ?Take sleeping pills or medicines that cause drowsiness. ?Make important decisions or sign legal documents. ?Take care of children on your own. Rest. Eating and drinking Follow the diet recommended by your health care provider. If you vomit: ?Drink water, juice, or soup when you can drink without vomiting. ?Make sure you have little or no nausea before eating solid foods. General instructions Have a responsible adult stay with you until you are awake and alert. Take weem-oil-broxohs and prescription medicines only as told by your health care provider. If you smoke, do not smoke without supervision. Keep all follow-up visits as told by your health care provider. This is important. Contact a health care provider if: You keep feeling nauseous or you keep vomiting. You feel light-headed. You develop a rash. You have a fever. Get help right away if: You have trouble breathing. This information is not intended to replace advice given to you by your health care provider. Make sure you discuss any questions you have with your health care provider. Document Released: 08/04/2014 Document Revised: 09/26/2018 Document Reviewed: 02/02/2017 [employer] Patient Education 2020 [employer]. Follow Up Care 03/27/2023 08:25:58 With:ISI DANGELO MD Address: [facility] [address] [place] [address] [place] [address]- When: Unknown Comments:Follow-up as scheduled [facility] 04-10-2023 Summary of episod e note Discharge Instructions Thank you for allowing [facility] to assist you with your healthcare needs. The following is important discharge information regarding your hospital visit. What to do next Follow Up Appointments Follow Up with ISI DANGELO MD When Why: Follow-up as scheduled Where: [facility] [address] [facility] [place] [id number]- Allergies Watermelon (Hives) Medications Please ask your primary doctor or pharmacist before taking any other medication not listed, including over the counter drugs, herbal medications, vitamins and or supplements as they may interact with your home medications. What How Much When Instructions Last Dose Unchanged albuterol (Albuterol (Eqv-Proventil HFA) 90 mcg/ inh inhalation aerosol) 2 puff(s) by inhalation Every 4 hours as needed for as needed for wheezing Unchanged atorvastatin (atorvastatin 10 mg oral tablet) 1 tab(s) by mouth Daily at bedtime Unchanged ferrous sulfate (IRON (ferrous sulfate 325 mg) 65 mg oral tablet) 1 tab(s) by mouth Twice daily with meals Take with food. Unchanged gabapentin (gabapentin 300 mg oral capsule) 1 cap by mouth Daily at bedtime Unchanged lisinopril (lisinopril 10 mg oral tablet) 1 tab(s) by mouth Once a day Please take this list to your next doctor s visit. Bring all medications you take, including over the counter medications, herbals and other supplements with you to your doctor s visit. Patients and families are reminded to discard old lists and to update any records with all medication providers or retail pharmacies. Education Materials [place] Radiology Procedure/Biopsy Discharge Instructions Interventional Radiology [facility] [address] [place] [address] Today, you had a biopsy of your parotid gland. This procedure/biopsy was done to help your doctor diagnose and treat the signs and symptoms you have been experiencing. These instructions should be followed after your procedure to reduce the chance of experiencing complications. Please follow the instructions below to reduce the chance of experiencing complications. Diet: Resume your normal diet as tolerated. Drink extra fluids. Activity: Rest for the remainder of the day. You may resume your normal activity tomorrow. You may bathe/shower after 24 hours. Do not soak or submerge site (including swimming or hot tubs) until a scab forms. No heavy lifting, pushing, or straining. Dressing: Check the site for bleeding. Apply pressure to the site if bleeding excessively and call your physician. Change the band aid as needed; it can be removed after 24 hours. Keep the site dry at all times until a scab forms over the site. Pain Control: The puncture site may be sore for 1 to 2 days following the procedure. Faly-rui-ldcsrif pain medication should be used for pain or discomfort. Please check with the physician who ordered this procedure for you for their specific recommendations. If your pain is not relieved or becomes more severe, notify the physician who sent you for this procedure. Medication: Please resume resume home medications as scheduled. When to seek medical help: Lightheadedness, dizziness, or fainting. Severe pain or swelling. Severe nausea or vomiting. Infection: fever greater than 101 degrees, chills, redness, warmth, swelling, bleeding, or pus from puncture site. If you experience any of these issues during the first 24 hours, please follow the instruction below: For the first 24 hours, call [phone] After 24 hours, contact the physician who ordered this procedure for you. Obtaining test results: Please make an appointment with your doctor to obtain your test results. They are usually available within 4 to 7 business days. Do not assume everything is normal if you have not heard from your doctor or medical facility. It is important for you to follow up on all of your test results. Moderate Conscious Sedation, Adult, Care After These instructions provide you with information about caring for yourself after your procedure. Your health care provider may also give you more specific instructions. Your treatment has been planned according to current medical practices, but problems sometimes occur. Call your health care provider if you have any problems or questions after your procedure. What can I expect after the procedure? After your procedure, it is common: To feel sleepy for several hours. To feel clumsy and have poor balance for several hours. To have poor judgment for several hours. To vomit if you eat too soon. Follow these instructions at home: For at least 24 hours after the procedure: Do not: ? Participate in activities where you could fall or become injured. ? Drive. ? Use heavy machinery. ? Drink alcohol. ? Take sleeping pills or medicines that cause drowsiness. ? Make important decisions or sign legal documents. ? Take care of children on your own. Rest. Eating and drinking Follow the diet recommended by your health care provider. If you vomit: ? Drink water, juice, or soup when you can drink without vomiting. ? Make sure you have little or no nausea before eating solid foods. General instructions Have a responsible adult stay with you until you are awake and alert. Take nfvs-zlh-fvdngcw and prescription medicines only as told by your health care provider. If you smoke, do not smoke without supervision. Keep all follow-up visits as told by your health care provider. This is important. Contact a health care provider if: You keep feeling nauseous or you keep vomiting. You feel light-headed. You develop a rash. You have a fever. Get help right away if: You have trouble breathing. This information is not intended to replace advice given to you by your health care provider. Make sure you discuss any questions you have with your health care provider. Document Released: 08/04/2014 Document Revised: 09/26/2018 Document Reviewed: 02/02/2017 [employer] Patient Education 2020 [employer]. Additional Information VACCINATE! IT SAVES LIVES! Members of the community who have not yet received the COVID-19 vaccine and would like to receive it can visit one of [facility] vaccine clinics. There are many vaccine clinic locations within the [facility]. For locations and available times, please visit https://gettheshot.coronavirus.o hio.gov/. It is important to note that some COVID mobile vaccine clinics are held outdoors and may be canceled in rainy or stormy conditions. To learn more about pediatric vaccinations (ages 5-11), we invite you to visit the [facility] webpage. https://www.[facility].org/p ages/9512-Fuwtq-Pkjscjefrma-Freq kqohbq-Kyjsd-Ueanewotm.html To learn more about the COVID-19 vaccine, we invite you to visit the CDC website for a list of frequently asked questions.https://www.cdc.gov/co ronavirus/2019-ncov/vaccines/faq .html [employer] Patient Portal Access Instructions: Stay connected with your healthcare team and access your personal medical information anytime with the [employer] Patient Portal. Please follow the directions below to create your [employer] account: 1.Access the email account you provided upon registration to the hospital/physician office.2.Look for an invitation email from [facility].3.Open the email and access the invitation link: Accept Invitation to [facility].4.Fill in the required mar to create your account. To access your account, visit [email or web address]. Click the blue button labeled Access Patient Portal and then log in with the username and password that you created in the steps above. You will be able to view your test results, lab results, a summary of your visits, upcoming appointments and more. There is also a convenient messaging option where you can send secure messages to your provider. In addition, you will have the ability to download any documents or summaries to your computer and/or send the information securely to a physician. Remember that your healthcare information is confidential, so carefully consider who you will allow to register on the [facility] Patient Portal for access to your information. You can also access the [facility] Patient Portal on the [facility] lisa. Simply click on Patient Portal and then log into your account. If you would like to receive a full copy of your medical records, please contact the [facility] Medical Records Department by calling [phone], Saturday through Saturday between 8 a.m. and 4:30 p.m. HOW TO SAFELY DISPOSE OF PRESCRIPTION MEDICATIONS Please use one of the following methods to safely dispose of your unused medications. 1.Use a drug disposal kit: the drug disposal pouch allows you to safely discard your old and unused drugs. Ask your nurse to give you one when you are discharged.2.Visit a local take-back location: Many local pharmacies and police departments have programs that collect old and unwanted prescription drugs. Call your local pharmacy or go to http://bit.Netbooks/5U3Uu1r to find one close to you.3.Make use of household items: Use cat litter or old coffee grounds to dispose medications if other options are not available. Mix your drugs with these household products, seal them in an airtight container and throw it into the garbage. Call [facility]: [phone] to be sure your drugs can be disposed of in this way. Some medicines may require a different approach.4.Never flush your medications down the toilet. IF YOU HAVE BEEN PRESCRIBED AN OPIOID FOR PAIN If you have been prescribed an opioid (such as hydrocodone, oxycodone or morphine), it is critical to understand the possible side effects and risks of opioid pain medications. Even when taken as directed, opioids can have several side effects including: Tolerance, meaning you might need to take more of a medication for the same pain relief. Nausea, vomiting and/or constipation. Sleepiness, dizziness, dry mouth, confusion, depression or itching. Physical dependence, meaning you have withdrawal symptoms when a medication is stopped, can develop within a few days. KNOW YOUR RESPONSIBILITIES It is important to know exactly how much and how often to take the opioid pain medications you are prescribed. Never take opioids in higher amounts or more often than prescribed. Do not combine opioids with alcohol or other drugs that cause drowsiness, such as benzodiazepines, also known as benzos, including diazepam and alprazolam, muscle relaxants or sleep aids. Never sell or share prescription opioids. This is illegal. Store opioids in a secure place and out of reach of others (including children, family, friends and visitors). The last page of this document has been signed and retained as a CHART COPY. Signatures Patient Education Materials Radiology- Procedure/Biopsy 02/10/2020 (CUSTOM) Moderate Conscious Sedation, Adult, Care After Medication Leaflets My discharge plan and instructions have been reviewed and explained to me and I,JUAN HAWKINS understand my current condition and have read and understand these discharge instructions. I have received a written copy of the plan/instructions. If I have questions, I am aware that I should contact my doctor. Patient/Guest Relations Executive Signature: Date/Time: Relationship to Patient: Witness Name/Signature: Date/Time: [facility] 03-26-2023 Miscellaneous Notes Rox, received an H&P request for an order for a biopsy. Advised that Patient is has not been seen at the [facility] since 2018. She is not a Patient of [facility] will contact ordering Doctor. Era Guevara LPN documented in this encounter [facility] 12-20-2022 Note ORIGINAL PROCEDURE: DOS: 11/30/2022 2:05 pm PROCEDURE: 1. Fine needle aspiration of left parotid lesion with ultrasound guidance TECHNIQUE: Fine needle aspiration under direct ultrasound guidance. The procedure and potential complications, mainly the risk of bleeding and hematoma formation was discussed with the patient. Informed consent was obtained. 1.1 x 0.9 x 0.7 cm ill-defined hypoechoic lesion is noted within the left parotid gland. Needle (gauge): Needle size: 25 # of passes: 3 Cytology review: No Postprocedure images demonstrate no evidence of hemorrhage in the area. Sterile dressing was placed. COMPARISON: None HISTORY: ORDERING SYSTEM PROVIDED HISTORY: Reason for Exam: MASS IMPRESSION: 1. Successful ultrasound guided fine needle aspiration of left parotid nodule. Interpreted by: Lis Swanson MD Preliminary Report By: Lis Swanson MD Electronically signed By Lis Swanson MD Dictated Date: 12/20/2022 1:03:19 AM Prelim Date: 12/20/2022 1:05:37 AM Sign Date: 12/20/2022 1:05:37 AM Ordering Provider[facility] 12-13-2022 Note Discharge Instructions Thank you for allowing [facility] to assist you with your healthcare needs. The following is important discharge information regarding your hospital visit. Your Care Team LESLIE HINSON MD What to do next Instructions From Your Doctor Remove dressing tomorrow. Wash incision with soap and water Scheduled Follow-Up Appointments Appointment Type When With Where Contact InformationCTS OV Post Op 12/27/2022 10:30 AM EST JESUS MANUEL BLOOM APRN-ARELIS [facility] Follow Up Appointments Follow Up with JESUS MANUEL BLOOM APRN-ARELIS When 12/27/2022 10:30 AM EST Where: [address] [facility] [place] [address]- Follow Up with LESLIE HINSON When Within 1-2 days Where: [facility] [address] [place] [address]- [phone] Business (1) The Following Activity and Diet Have Been Ordered for You Discharge Activity - Ordered -- Lifting Restricted less than 10 pounds May Shower, Restrict lifting for 3 daysRestrict [address] for 2 days, 12/13/22 9:15:00 EST Discharge Diet - Ordered -- No changes were made to your diet during your hospital stay. Please resume your pre hospitalization diet on discharge., 12/13/22 9:15:00 EST The Following Equipment Has Been Ordered for You Discharge Home Equipment Discharge Wound Care - Ordered -- Remove dressing tomorrowWash incision with soap and water, 12/13/22 9:15:00 EST The Following Treatments Have Been Ordered for You Discharge Labs No qualifying data available. Discharge Radiology No qualifying data available. Other Therapies No qualifying data available. Post Acute Orders No qualifying data available. Someone Will Contact You Regarding These Home Health Referrals No home referrals have been ordered for you. No one will call you. Allergies Watermelon (Hives) Immunizations This Visit Given Vaccine Dateinfluenza virus vaccine, inactivated 12/13/2022 Medications Please ask your primary doctor or pharmacist before taking any other medication not listed, including over the counter drugs, herbal medications, vitamins and or supplements as they may interact with your home medications. What How Much When Instructions Last Dose Unchanged acetaminophen (acetaminophen 650 mg oral tablet, extended release) 1 tab(s) by mouth Every 8 hours as needed for as needed for pain Duration: 3 Days Pickup at [facility] Unchanged albuterol (Albuterol (Eqv-Proventil HFA) 90 mcg/ inh inhalation aerosol) 2 puff(s) by inhalation Every 4 hours as needed for as needed for wheezing Unchanged atorvastatin (atorvastatin 10 mg oral tablet) 1 tab(s) by mouth Daily at bedtime Unchanged budesonide-formoterol (budesonide-formoterol 160 mcg-4.5 mcg/ inh Inhaler) 2 puff(s) by inhalation Once a day (in the morning) Unchanged famotidine (famotidine 20 mg oral tablet) 1 tab(s) by mouth Once a day Unchanged gabapentin (gabapentin 300 mg oral capsule) 1 cap by mouth Daily at bedtime Unchanged lisinopril (lisinopril 10 mg oral tablet) 1 tab(s) by mouth Once a day Pharmacy Information [facility] 074: [address] [place], [place] [id number] [phone] What How Much When Comments Stop Taking atenolol (atenolol 25 mg oral tablet) 1 tab(s) by mouth Once a day (in the morning) Stop Taking melatonin (melatonin 5 mg oral capsule) 1 cap by mouth Daily at bedtime as needed for as needed for insomnia Please take this list to your next doctor s visit. Bring all medications you take, including over the counter medications, herbals and other supplements with you to your doctor s visit. Patients and families are reminded to discard old lists and to update any records with all medication providers or retail pharmacies. Education Materials Smoking Cessation Quitting smoking is important to your health and has many advantages. However, it is not always easy to quit since nicotine is a very addictive drug. Often times, people try 3 times or more before being able to quit. This document explains the best ways for you to prepare to quit smoking. Quitting takes hard work and a lot of effort, but you can do it. ADVANTAGES OF QUITTING SMOKING You will live longer, feel better, and live better. Your body will feel the impact of quitting smoking almost immediately. ? Within 20 minutes, blood pressure decreases. Your pulse returns to its normal level. ? After 8 hours, carbon monoxide levels in the blood return to normal. Your oxygen level increases. ? After 24 hours, the chance of having a heart attack starts to decrease. Your breath, hair, and body stop smelling like smoke. ? After 48 hours, damaged nerve endings begin to recover. Your sense of taste and smell improve. ? After 72 hours, the body is virtually free of nicotine. Your bronchial tubes relax and breathing becomes easier. ? After 2 to 12 weeks, lungs can hold more air. Exercise becomes easier and circulation improves. The risk of having a heart attack, stroke, cancer, or lung disease is greatly reduced. ? After 1 year, the risk of coronary heart disease is cut in half. ? After 5 years, the risk of stroke falls to the same as a nonsmoker. ? After 10 years, the risk of lung cancer is cut in half and the risk of other cancers decreases significantly. ? After 15 years, the risk of coronary heart disease drops, usually to the level of a nonsmoker. If you are , quitting smoking will improve your chances of having a healthy baby. The people you live with, especially any children, will be healthier. You will have extra money to spend on things other than cigarettes. QUESTIONS TO THINK ABOUT BEFORE ATTEMPTING TO QUIT You may want to talk about your answers with your caregiver. Why do you want to quit? If you tried to quit in the past, what helped and what did not? What will be the most difficult situations for you after you quit? How will you plan to handle them? Who can help you through the tough times? Your family? Friends? A caregiver? What pleasures do you get from smoking? What ways can you still get pleasure if you quit? Here are some questions to ask your caregiver: How can you help me to be successful at quitting? What medicine do you think would be best for me and how should I take it? What should I do if I need more help? What is smoking withdrawal like? How can I get information on withdrawal? GET READY Set a quit date. Change your environment by getting rid of all cigarettes, ashtrays, matches, and lighters in your home, car, or work. Do not let people smoke in your home. Review your past attempts to quit. Think about what worked and what did not. GET SUPPORT AND ENCOURAGEMENT You have a better chance of being successful if you have help. You can get support in many ways. Tell your family, friends, and co-workers that you are going to quit and need their support. Ask them not to smoke around you. Get individual, group, or telephone counseling and support. Programs are available at local hospitals and health centers. Call your local health department for information about programs in your area. Spiritual beliefs and practices may help some smokers quit. Download a quit meter on your computer to keep track of quit statistics, such as how long you have gone without smoking, cigarettes not smoked, and money saved. Get a self-help book about quitting smoking and staying off of tobacco. LEARN NEW SKILLS AND BEHAVIORS Distract yourself from urges to smoke. Talk to someone, go for a walk, or occupy your time with a task. Change your normal routine. Take a different route to work. Drink tea instead of coffee. Eat breakfast in a different place. Reduce your stress. Take a hot bath, exercise, or read a book. Plan something enjoyable to do every day. Reward yourself for not smoking. Explore interactive web-based programs that specialize in helping you quit. GET MEDICINE AND USE IT CORRECTLY Medicines can help you stop smoking and decrease the urge to smoke. Combining medicine with the above behavioral methods and support can greatly increase your chances of successfully quitting smoking. Nicotine replacement therapy helps deliver nicotine to your body without the negative effects and risks of smoking. Nicotine replacement therapy includes nicotine gum, lozenges, inhalers, nasal sprays, and skin patches. Some may be available jclo-fom-qztljyl and others require a prescription. Antidepressant medicine helps people abstain from smoking, but how this works is unknown. This medicine is available by prescription. Nicotinic receptor partial agonist medicine simulates the effect of nicotine in your brain. This medicine is available by prescription. Ask your caregiver for advice about which medicines to use and how to use them based on your health history. Your caregiver will tell you what side effects to look out for if you choose to be on a medicine or therapy. Carefully read the information on the package. Do not use any other product containing nicotine while using a nicotine replacement product. RELAPSE OR DIFFICULT SITUATIONS Most relapses occur within the first 3 months after quitting. Do not be discouraged if you start smoking again. Remember, most people try several times before finally quitting. You may have symptoms of withdrawal because your body is used to nicotine. You may crave cigarettes, be irritable, feel very hungry, cough often, get headaches, or have difficulty concentrating. The withdrawal symptoms are only temporary. They are strongest when you first quit, but they will go away within 10 14 days. To reduce the chances of relapse, try to: Avoid drinking alcohol. Drinking lowers your chances of successfully quitting. Reduce the amount of caffeine you consume. Once you quit smoking, the amount of caffeine in your body increases and can give you symptoms, such as a rapid heartbeat, sweating, and anxiety. Avoid smokers because they can make you want to smoke. Do not let weight gain distract you. Many smokers will gain weight when they quit, usually less than 10 pounds. Eat a healthy diet and stay active. You can always lose the weight gained after you quit. Find ways to improve your mood other than smoking. FOR MORE INFORMATION www.smokefree.gov Document Released: 10/08/2002 Document Revised: 04/14/2013 Document Reviewed: 01/22/2013 ExitCare Patient Information 2015 [employer]. This information is not intended to replace advice given to you by your health care provider. Make sure you discuss any questions you have with your health care provider. Mediastinoscopy, Care After This sheet gives you information about how to care for yourself after your procedure. Your health care provider may also give you more specific instructions. If you have problems or questions, contact your health care provider. What can I expect after the procedure? After the procedure, it is common to have: Slight pain in the incision area. Sore throat. Follow these instructions at home: Incision care Follow instructions from your health care provider about how to take care of your incision. Make sure you: ? Wash your hands with soap and water before you change your bandage (dressing). If soap and water are not available, use hand mover. ? Change your dressing as told by your health care provider. ? Leave stitches (sutures) in place. These skin closures may need to stay in place for 2 weeks or longer. Check your incision area every day for signs of infection. Check for: ? More redness, swelling, or pain. ? More fluid or blood. ? Warmth. ? Pus or a bad smell. Activity Do not lift anything that is heavier than 10 lb (4.5 kg) until your health care provider says that it is safe. Do not drive for 24 hours if you were given a medicine to help you relax (sedative). Do not drive until your health care provider approves. Limit your activities as told by your health care provider. General instructions Do not take baths, swim, or use a hot tub until your health care provider approves. Take bxou-upj-hmwwmgg and prescription medicines only as told by your health care provider. Keep all follow-up visits as told by your health care provider. This is important. It is up to you to get the results of your procedure. Ask your health care provider, or the department that is doing the procedure, when your results will be ready. Contact a health care provider if: You have more redness, swelling, or pain around your incision. You have more fluid or blood coming from your incision. Your incision feels warm to the touch. You have pus or a bad smell coming from your incision. You have a fever. Get help right away if: You have a rash. You have trouble breathing. You have chest pain or shortness of breath. This information is not intended to replace advice given to you by your health care provider. Make sure you discuss any questions you have with your health care provider. Document Released: 05/03/2006 Document Revised: 09/26/2018 Document Reviewed: 07/26/2017 [employer] Patient Education 2020 [employer]. Additional Information VACCINATE! IT SAVES LIVES! Members of the community who have not yet received the COVID-19 vaccine and would like to receive it can visit one of [facility] vaccine clinics. There are many vaccine clinic locations within the [facility]. For locations and available times, please visit https://gettheshot.coronavirus.o ido.gov/. It is important to note that some COVID mobile vaccine clinics are held outdoors and may be canceled in rainy or stormy conditions. To learn more about pediatric vaccinations (ages 5-11), we invite you to visit the [employer] Children[facility] webpage. https://www.[email or web address].org/p ages/9874-Uispf-Lyafssjbplt-Freq ihtjap-Klswx-Mpclpfcux.html To learn more about the COVID-19 vaccine, we invite you to visit the CDC website for a list of frequently asked questions. https://www.cdc.gov/coronavirus/ 2019-ncov/vaccines/faq.html [facility] Patient Portal Access Instructions: Stay connected with your healthcare team and access your personal medical information anytime with the [facility] Patient Portal.If you would like a full copy of your medical records, please contact the [facility] Medical Records Department, Saturday through Saturday between 8a.m. and 4:30p.m. Please follow the directions below to access the portal: 1.Access the email account you provided upon registration to the [facility].2.Look for an invitation email from [facility].3.Open the email and access the invitation link: Accept Invitation to [facility]4.Fill in the required mar to create your account. Sign into [email or web address] with your username and password that you created in the above steps to stay up to date. You can then view a summary of results, a summary of your visits, and the ability to download your summaries to your computer or send the information securely to a physician. Remember that your healthcare information is confidential, so carefully consider who you will allow to register on the [facility] Patient Portal for access to your information. You can also access the [facility] Patient Portal on the [facility] lisa. Simply click on Health Records under Health Data and then click on the [employer] logo. HOW TO SAFELY DISPOSE OF PRESCRIPTION MEDICATIONS Please use one of the following methods to safely dispose of your unused medications. 1.Use a drug disposal kit: the drug disposal pouch allows you to safely discard your old and unused drugs. Ask your nurse to give you one when you are discharged.2.Visit a local take-back location: Many local pharmacies and police departments have programs that collect old and unwanted prescription drugs. Call your local pharmacy or go to http://Lovli.Netbooks/2K3Mv9g to find one close to you.3.Make use of household items: Use cat litter or old coffee grounds to dispose medications if other options are not available. Mix your drugs with these household products, seal them in an airtight container and throw it into the garbage. Call [facility]: [phone] to be sure your drugs can be disposed of in this way. Some medicines may require a different approach.4.Never flush your medications down the toilet. IF YOU HAVE BEEN PRESCRIBED AN OPIOID FOR PAIN If you have been prescribed an opioid (such as hydrocodone, oxycodone or morphine), it is critical to understand the possible side effects and risks of opioid pain medications. Even when taken as directed, opioids can have several side effects including: Tolerance, meaning you might need to take more of a medication for the same pain relief. Nausea, vomiting and/or constipation. Sleepiness, dizziness, dry mouth, confusion, depression or itching. Physical dependence, meaning you have withdrawal symptoms when a medication is stopped, can develop within a few days. KNOW YOUR RESPONSIBILITIES It is important to know exactly how much and how often to take the opioid pain medications you are prescribed. Never take opioids in higher amounts or more often than prescribed. Do not combine opioids with alcohol or other drugs that cause drowsiness, such as benzodiazepines, also known as benzos, including diazepam and alprazolam, muscle relaxants or sleep aids. Never sell or share prescription opioids. This is illegal. Store opioids in a secure place and out of reach of others (including children, family, friends and visitors). The last page of this document has been signed and retained as a CHART COPY. Signatures Patient Education Materials Smoking Cessation Mediastinoscopy, Care After Medication Leaflets My discharge plan and instructions have been reviewed and explained to me and I,JUAN HAWKINS understand my current condition and have read and understand these discharge instructions. I have received a written copy of the plan/instructions. If I have questions, I am aware that I should contact my doctor. Patient/Guest Relations Executive Signature: Date/Time: Relationship to Patient: Witness Name/Signature: Date/Time: [facility] 12-13-2022 Hospital Discharg e instructions Patient Education 12/13/2022 11:12:46 Smoking Cessation Smoking Cessation Quitting smoking is important to your health and has many advantages. However, it is not always easy to quit since nicotine is a very addictive drug. Often times, people try 3 times or more before being able to quit. This document explains the best ways for you to prepare to quit smoking. Quitting takes hard work and a lot of effort, but you can do it. ADVANTAGES OF QUITTING SMOKING You will live longer, feel better, and live better. Your body will feel the impact of quitting smoking almost immediately. ? Within 20 minutes, blood pressure decreases. Your pulse returns to its normal level. ? After 8 hours, carbon monoxide levels in the blood return to normal. Your oxygen level increases. ? After 24 hours, the chance of having a heart attack starts to decrease. Your breath, hair, and body stop smelling like smoke. ? After 48 hours, damaged nerve endings begin to recover. Your sense of taste and smell improve. ? After 72 hours, the body is virtually free of nicotine. Your bronchial tubes relax and breathing becomes easier. ? After 2 to 12 weeks, lungs can hold more air. Exercise becomes easier and circulation improves. The risk of having a heart attack, stroke, cancer, or lung disease is greatly reduced. ? After 1 year, the risk of coronary heart disease is cut in half. ? After 5 years, the risk of stroke falls to the same as a nonsmoker. ? After 10 years, the risk of lung cancer is cut in half and the risk of other cancers decreases significantly. ? After 15 years, the risk of coronary heart disease drops, usually to the level of a nonsmoker. If you are , quitting smoking will improve your chances of having a healthy baby. The people you live with, especially any children, will be healthier. You will have extra money to spend on things other than cigarettes. QUESTIONS TO THINK ABOUT BEFORE ATTEMPTING TO QUIT You may want to talk about your answers with your caregiver. Why do you want to quit? If you tried to quit in the past, what helped and what did not? What will be the most difficult situations for you after you quit? How will you plan to handle them? Who can help you through the tough times? Your family? Friends? A caregiver? What pleasures do you get from smoking? What ways can you still get pleasure if you quit? Here are some questions to ask your caregiver: How can you help me to be successful at quitting? What medicine do you think would be best for me and how should I take it? What should I do if I need more help? What is smoking withdrawal like? How can I get information on withdrawal? GET READY Set a quit date. Change your environment by getting rid of all cigarettes, ashtrays, matches, and lighters in your home, car, or work. Do not let people smoke in your home. Review your past attempts to quit. Think about what worked and what did not. GET SUPPORT AND ENCOURAGEMENT You have a better chance of being successful if you have help. You can get support in many ways. Tell your family, friends, and co-workers that you are going to quit and need their support. Ask them not to smoke around you. Get individual, group, or telephone counseling and support. Programs are available at local hospitals and health centers. Call your local health department for information about programs in your area. Spiritual beliefs and practices may help some smokers quit. Download a quit meter on your computer to keep track of quit statistics, such as how long you have gone without smoking, cigarettes not smoked, and money saved. Get a self-help book about quitting smoking and staying off of tobacco. LEARN NEW SKILLS AND BEHAVIORS Distract yourself from urges to smoke. Talk to someone, go for a walk, or occupy your time with a task. Change your normal routine. Take a different route to work. Drink tea instead of coffee. Eat breakfast in a different place. Reduce your stress. Take a hot bath, exercise, or read a book. Plan something enjoyable to do every day. Reward yourself for not smoking. Explore interactive web-based programs that specialize in helping you quit. GET MEDICINE AND USE IT CORRECTLY Medicines can help you stop smoking and decrease the urge to smoke. Combining medicine with the above behavioral methods and support can greatly increase your chances of successfully quitting smoking. Nicotine replacement therapy helps deliver nicotine to your body without the negative effects and risks of smoking. Nicotine replacement therapy includes nicotine gum, lozenges, inhalers, nasal sprays, and skin patches. Some may be available zfev-dlp-eeflqov and others require a prescription. Antidepressant medicine helps people abstain from smoking, but how this works is unknown. This medicine is available by prescription. Nicotinic receptor partial agonist medicine simulates the effect of nicotine in your brain. This medicine is available by prescription. Ask your caregiver for advice about which medicines to use and how to use them based on your health history. Your caregiver will tell you what side effects to look out for if you choose to be on a medicine or therapy. Carefully read the information on the package. Do not use any other product containing nicotine while using a nicotine replacement product. RELAPSE OR DIFFICULT SITUATIONS Most relapses occur within the first 3 months after quitting. Do not be discouraged if you start smoking again. Remember, most people try several times before finally quitting. You may have symptoms of withdrawal because your body is used to nicotine. You may crave cigarettes, be irritable, feel very hungry, cough often, get headaches, or have difficulty concentrating. The withdrawal symptoms are only temporary. They are strongest when you first quit, but they will go away within 10 14 days. To reduce the chances of relapse, try to: Avoid drinking alcohol. Drinking lowers your chances of successfully quitting. Reduce the amount of caffeine you consume. Once you quit smoking, the amount of caffeine in your body increases and can give you symptoms, such as a rapid heartbeat, sweating, and anxiety. Avoid smokers because they can make you want to smoke. Do not let weight gain distract you. Many smokers will gain weight when they quit, usually less than 10 pounds. Eat a healthy diet and stay active. You can always lose the weight gained after you quit. Find ways to improve your mood other than smoking. FOR MORE INFORMATION www.smokefree.gov Document Released: 10/08/2002 Document Revised: 04/14/2013 Document Reviewed: 01/22/2013 ExitCare Patient Information 2015 [employer]. This information is not intended to replace advice given to you by your health care provider. Make sure you discuss any questions you have with your health care provider. 12/13/2022 11:07:52 Mediastinoscopy, Care After Mediastinoscopy, Care After This sheet gives you information about how to care for yourself after your procedure. Your health care provider may also give you more specific instructions. If you have problems or questions, contact your health care provider. What can I expect after the procedure? After the procedure, it is common to have: Slight pain in the incision area. Sore throat. Follow these instructions at home: Incision care Follow instructions from your health care provider about how to take care of your incision. Make sure you: ?Wash your hands with soap and water before you change your bandage (dressing). If soap and water are not available, use hand mover. ?Change your dressing as told by your health care provider. ?Leave stitches (sutures) in place. These skin closures may need to stay in place for 2 weeks or longer. Check your incision area every day for signs of infection. Check for: ?More redness, swelling, or pain. ?More fluid or blood. ?Warmth. ?Pus or a bad smell. Activity Do not lift anything that is heavier than 10 lb (4.5 kg) until your health care provider says that it is safe. Do not drive for 24 hours if you were given a medicine to help you relax (sedative). Do not drive until your health care provider approves. Limit your activities as told by your health care provider. General instructions Do not take baths, swim, or use a hot tub until your health care provider approves. Take sdeh-xwu-kutexro and prescription medicines only as told by your health care provider. Keep all follow-up visits as told by your health care provider. This is important. It is up to you to get the results of your procedure. Ask your health care provider, or the department that is doing the procedure, when your results will be ready. Contact a health care provider if: You have more redness, swelling, or pain around your incision. You have more fluid or blood coming from your incision. Your incision feels warm to the touch. You have pus or a bad smell coming from your incision. You have a fever. Get help right away if: You have a rash. You have trouble breathing. You have chest pain or shortness of breath. This information is not intended to replace advice given to you by your health care provider. Make sure you discuss any questions you have with your health care provider. Document Released: 05/03/2006 Document Revised: 09/26/2018 Document Reviewed: 07/26/2017 [employer] Patient Education [employer]. Follow Up Care 11/29/2022 16:22:14 With:LESLIE HINSON Address: [facility] [address] [place] [address] [phone] Business (1) When:1-2 days With:JESUS MANUEL BLOOM [facility] Address: [address] [place] [address] [place] [address]- When:12/27/2022 10:30:00 [facility] 12-13-2022 Note Date of Service 12/13/2022 Discharge Diagnosis S/P mediastinoscopy Hospital Course This is a 72-year-old female with medical history significant for mild aortic stenosis, asthma, cancer of the right lung, hypertension, hypercholesterolemia, tobacco abuse(quit 2 months ago) who was referred by radiology oncology to Dr. Quiñones for evaluation of right upper lobe non-small cell carcinoma. She was referred to Dr. Quiñones for possible right upper lobectomy and lymphadenectomy. She underwent a mediastinoscopy on 12/13/[address] Quiñones. She tolerated the procedure well and was recovered in [facility] SICU. Room Air SaO2's remained 86-88%. Discussed with anesthesia. Lasix given. Diuresed well. Discharged home later in the afternoon. Room air SaO2 97%. Allergies Watermelon (Hives) Procedures Mediastinoscopy 12/13/2022 Imaging Results and Diagnostics (12/13/2022 09:15 EST XR Chest 1 View) EXAMINATION: ONE XRAY VIEW OF THE CHEST 12/13/2022 9:16 am COMPARISON: None available for review. HISTORY: ORDERING SYSTEM PROVIDED HISTORY: Reason for Exam: post op mediastinoscopy FINDINGS: Patient is rotated right, accentuating the right paratracheal stripe and right heart border. Normal heart size for projection. Atherosclerosis of the aorta. No visible pneumothorax, pleural effusion, or vascular congestion. Diffuse coarsening of the interstitium. Minimal left basilar subsegmental atelectasis and/or scarring. No focal airspace consolidation. Degenerative changes of the spine. Severe compression deformity of thoracolumbar junction, age indeterminate. Remote right hemithorax rib fracture laterally. IMPRESSION: 1. No evidence of acute cardiopulmonary process. 2. Age indeterminate severe compression deformity of thoracolumbar junction. Correlate with any outside studies if available. [1] Objective Vitals and Measurements T: 36.6 C (Oral) TMIN: 35.6 C (Oral) TMAX: 36.6 C (Oral) HR: 73(Monitored) RR: 16 BP: 123/58 BP: 168/75(Line) SpO2: 89% HT: 157.5 cm WT: 66.9 kg Weight Dosing Weight: 66.9 kg (12/13/22) Lungs: Bilateral, clear Heart: Regular S1-S2, monitor normal sinus rhythm Small, mid neck dressing dry without drainage Abdomen: Soft, bowel sounds present Neurological: Oriented x4 Extremities: Well perfused Admission Date 12/13/2022 Discharge Date 12/13/2022 Patient Instructions Remove dressing tomorrow. Wash incision with soap and water Medications New Prescription acetaminophen (acetaminophen 650 mg oral tablet, extended release)1 tab(s) by mouth every 8 hours as needed as needed for pain for 3 Days. Refills: 0. Unchanged albuterol (Albuterol (Eqv-Proventil HFA) 90 mcg/inh inhalation aerosol)2 puff(s) by inhalation every 4 hours as needed as needed for wheezing. atorvastatin (atorvastatin 10 mg oral tablet)1 tab(s) by mouth daily at bedtime. budesonide-formoterol (budesonide-formoterol 160 mcg-4.5 mcg/inh Inhaler)2 puff(s) by inhalation once a day (in the morning). famotidine (famotidine 20 mg oral tablet)1 tab(s) by mouth once a day. gabapentin (gabapentin 300 mg oral capsule)1 cap by mouth daily at bedtime. lisinopril (lisinopril 10 mg oral tablet)1 tab(s) by mouth once a day. Follow Up Follow Up with JESUS MANUEL BLOOM When 12/27/2022 10:30 AM EST Where: [address] [facility] Cardiothoracic Surgery [place] [id number]- Discharge Diet Discharge Diet - Ordered -- No changes were made to your diet during your hospital stay. Please resume your pre hospitalization diet on discharge., 12/13/22 9:15:00 EST Discharge Activity Discharge Activity - Ordered -- Lifting Restricted less than 10 pounds May Shower, Restrict lifting for 3 daysRestrict driving for 2 days, 12/13/22 9:15:00 EST Condition on Discharge Home with stable Readmission Risk/Palliative Score No qualifying data available. Discharge Disposition Information Provided To Patient [1] XR Chest 1 View; GRAYSON GUEVARA DO 12/13/2022 09:15 EST Digitally Signed by NAOMI MICHAELS on 12/13/2022 03:23 PM [facility] 12-13-2022 Note ORIGINAL EXAMINATION: ONE XRAY VIEW OF THE CHEST 12/13/2022 9:16 am COMPARISON: None available for review. HISTORY: ORDERING SYSTEM PROVIDED HISTORY: Reason for Exam: post op mediastinoscopy FINDINGS: Patient is rotated right, accentuating the right paratracheal stripe and right heart border. Normal heart size for projection. Atherosclerosis of the aorta. No visible pneumothorax, pleural effusion, or vascular congestion. Diffuse coarsening of the interstitium. Minimal left basilar subsegmental atelectasis and/or scarring. No focal airspace consolidation. Degenerative changes of the spine. Severe compression deformity of thoracolumbar junction, age indeterminate. Remote right hemithorax rib fracture laterally. IMPRESSION: 1. No evidence of acute cardiopulmonary process. 2. Age indeterminate severe compression deformity of thoracolumbar junction. Correlate with any outside studies if available. Interpreted by: Grayson Guevara DO Preliminary Report By: Grayson Guevara DO Electronically signed By Grayson Guevara DO Dictated Date: 12/13/2022 9:21:20 AM Prelim Date: 12/13/2022 9:23:26 AM Sign Date: 12/13/2022 9:23:26 AM Ordering Provider: [facility] 12-13-2022 Note ORIGINAL EXAMINATION: ONE XRAY VIEW OF THE CHEST 12/13/2022 9:16 am COMPARISON: None available for review. HISTORY: ORDERING SYSTEM PROVIDED HISTORY: Reason for Exam: post op mediastinoscopy FINDINGS: Patient is rotated right, accentuating the right paratracheal stripe and right heart border. Normal heart size for projection. Atherosclerosis of the aorta. No visible pneumothorax, pleural effusion, or vascular congestion. Diffuse coarsening of the interstitium. Minimal left basilar subsegmental atelectasis and/or scarring. No focal airspace consolidation. Degenerative changes of the spine. Severe compression deformity of thoracolumbar junction, age indeterminate. Remote right hemithorax rib fracture laterally. IMPRESSION: 1. No evidence of acute cardiopulmonary process. 2. Age indeterminate severe compression deformity of thoracolumbar junction. Correlate with any outside studies if available. Interpreted by: Grayson Guevara DO Preliminary Report By: Grayson Guevara DO Electronically signed By Grayson Guevara DO Dictated Date: 12/13/2022 9:21:20 AM Prelim Date: 12/13/2022 9:23:26 AM Sign Date: 12/13/2022 9:23:26 AM Ordering Provider: [facility] 12-13-2022 Anesthesiology Consult note Patient: JUAN HAWKINS Age: 72 years Sex: Female : 1950 Associated Diagnoses: None Author: NELSON CORONEL DO Preoperative Information Greater than 6 hours Anesthesia history Patient's history: negative. Family's history: negative. Review of Systems Ear/Nose/Mouth/Throat: Negative except as documented in history of present illness. Respiratory: Negative except as documented in history of present illness. Cardiovascular: Negative except as documented in history of present illness. Gastrointestinal: Negative except as documented in history of present illness. Genitourinary: Negative except as documented in history of present illness. Endocrine: Negative except as documented in history of present illness. Musculoskeletal: Negative except as documented in history of present illness. Integumentary: Negative except as documented in history of present illness. Neurologic: Negative except as documented in history of present illness. Health Status Allergies: Allergic Reactions (Selected) Severity Not Documented Watermelon- Hives., Allergies (1) ActiveReaction WatermelonHives Current medications: (Selected) Inpatient Medications Ordered Kefzol: Start: 12/13/22 5:00:00 EST, Dose= 2 gram(s), = 20 mL, IV Push (INT), PREOP pharm, Routine, Rate: 240 mL/hr, Infuse over: 5 minute(s), 20 mL, 12/13/22 5:00:00 EST Peridex 0.12% oral rinse liquid: Start: 12/13/22 5:00:00 EST, Dose = 15 mL, Liq, Swish & Spit, PREOP pharm, 12/13/22 5:00:00 EST Documented Medications Documented Albuterol (Eqv-Proventil HFA) 90 mcg/inh inhalation aerosol: 2 puff(s), Inhalation, q4h, PRN as needed for wheezing, 0 Refill(s) atorvastatin 10 mg oral tablet: Dose : 10 mg = 1 tab(s), Oral, qHS, 0 Refill(s) budesonide-formoterol 160 mcg-4.5 mcg/inh Inhaler: Dose = 2 puff(s), Inhalation, qAM, # 10.2 gram(s), 0 Refill(s) melatonin 5 mg oral capsule: Dose : 5 mg = 1 cap(s), Oral, qHS, PRN as needed for insomnia, 0 Refill(s) montelukast 10 mg oral tablet: Dose : 10 mg = 1 tab(s), Oral, qAM, 0 Refill(s), Medications (2) Active Scheduled: (2) ceFAZolin syringe 2 gram(s) 20 mL, IV Push (INT), PREOP pharm chlorhexidine topical 0.12% Liquid (60 mL) 15 mL, Swish & Spit, PREOP pharm Continuous: (0) PRN: (0) Problem list: Medical Aortic stenosis / SNOMED CT 302294664 / Confirmed Asthma / SNOMED CT 076314219 / Confirmed High blood pressure / SNOMED CT 35459522 / Confirmed Hypercholesterolemia / SNOMED CT 60418395 / Confirmed Cancer of right lung / SNOMED CT 523540008 / Confirmed Tobacco abuse / SNOMED CT 842869395 / Confirmed, Active Problems (13) Aortic stenosis Arthritis Asthma Back pain Cancer of right lung Constipation Glasses High blood pressure Hypercholesterolemia Migraine Palpitations Presence of dental prosthetic device Tobacco abuse Histories Past Medical History: Active High blood pressure (30949575) Hypercholesterolemia (23018677) Family History: Cancer Father HTN - Hypertension Father Pacemaker catheter, device Brother Alzheimer disease Mother Procedure history: Appendectomy (470620088). Abdominal hysterectomy partial (577452385). Comments: 12/11/2022 9:29 JARED Cintron partial Amputation of finger of right hand (0977446753). Dilation and curettage (22733753). Cataract extraction (19994453). Comments: 12/11/2022 9:28 JARED Cintron bilateral Social History Social & Psychosocial Habits Alcohol 11/14/2022 Use: Past Substance Abuse 11/14/2022 Use: Never Tobacco 12/11/2022 Tobacco Use: 4 or less cigarettes(less, Someday smoker Type: Cigarettes Started at age: 20 Years Comment: 1-2 cigarettes a day - 12/11/2022 09:30 - JARED Long Home/Environment 12/11/2022 Domestic Concerns None Living situation: Home/Independent Lives In Apartment, Single level home Marital Status of Patient if Patient Independent Adult: Comment: livers with spouse - 11/14/2022 11:07 - Jyoti Thomas RN . Physical Examination General: Alert and oriented. Airway: Normal temporomandibular joint mobility, Normal mouth, Normal throat, Normal neck range of motion, Trachea midline. Mallampati classification: II (soft palate, fauces, uvula visible). Head: Normocephalic. Dentition Evaluation: Intact, Own teeth, Denies loose/chipped teeth. Neck: Supple. Respiratory: Lungs are clear to auscultation, Respirations are non-labored. Cardiovascular: Normal rate, Regular rhythm, No murmur. Heart Sounds: Normal. Gastrointestinal: Soft. Musculoskeletal Normal range of motion. Integumentary: Intact, Warm, Dry. Neurologic: Alert, Oriented. Review / Management Results review: Lab results: 12/12/2022 8:41 EST Quincy BERMUDEZ . Assessment and Plan [place] [employer] of Anesthesiologists (ASA) physical status classification: Class III. Anesthetic Preoperative Plan Premedication: intravenous. Anesthetic technique: General. Induction: intravenously. Maintenance airway: Oral endotracheal tube. Special techniques: Warming device. Special Monitoring: Arterial line. Postoperative pain management: Per surgeon. Risks discussed: nausea, vomiting, headache, sore throat, dental injury, hypotension, allergic reaction, serious complications. Informed consent: signed by patient. Beta Chad: Beta Chad Taken Within 24 Hrs: No. Digitally Signed by NELSON CORONEL DO on 12/13/2022 05:56 AM [facility] 06-20-2022 Note Patient Outreach (NE TNAV) JUAN HAWKINS ([id number]) 1950 F [facility] Date Time Provider Department 06/20/22 SARAH CALHOUN During your visit today, we recorded the following information about you: Sarah Calhoun MA 06/20/2022 8:45 AM Addendum POPULATION HEALTH NAVIGATION OUTREACH Action/I P/C to patient to update/establish PCP, number invalid. Letter mailed to patients home address on file. Mailed letter 06/20/2022 MM Pt identified by name and : NO Outreach Outcome/Action Unable to reach patient: Phone number not valid / voicemail full Letter mailed Did you use a PCP flex slot to schedule this appointment? N/A Reason for Outreach Care Gap or Scheduling/Wellness visits Payer: Payor: [employer] AND BLUE [employer]IELD / Plan: [employer] HMO / Product Type: HMO / Care Gap Reviewed:: Annual Wellness visit Breast Cancer screening Reminder: Reminder note to check Health Maintenance for items below Health Maintenance items due: COVID-19 VACCINE(1) Never done SPIROMETRY Never done BP CONTROLLED (<130/80) Never done DTAP,TDAP,TD(1 - Tdap) Never done ALPHA-1 ANTITRYPSIN DEFICIENCY SCREENING Never done SHINGRIX VACCINE(1 of 2) Never done DEPRESSION SCREENING due on 07/04/2017 ANNUAL PCP TEAM CHRONIC DISEASE VISIT due on 05/02/2019 MAMMOGRAM due on 05/15/2020 ADVANCE DIRECTIVE DISCUSSION Never done DIABETES SCREEN due on 03/18/2022 Message Sent to Practice: No Navigation Signature: Sarah Calhoun MA June 20, 2022 8:42 AM Allergies As of Date: 06/20/2022 Noted Allergy Reaction WATERMELON 02/12/2018 4 - Hives Date Reviewed: 03/18/2019 Reviewed by: Mary Yan Ma - Fully Assessed Reason for Visit: Population Health Navigation Outreach [3910] Cmt: Adelino Lacy Gaps Prescriptions as of 06/20/2022 - isosorbide mononitrate ER (IMDUR) 30 mg 24 hr tablet Take 1 tablet by mouth once daily. - nitroglycerin sublingual (NITROQUICK) 0.4 mg SL tablet Dissolve 1 tablet under the tongue as needed. FOR CHEST PAIN. IF NO RELIEF CALL 911 - atorvastatin (LIPITOR) 10 mg tablet Take 2 tablets by mouth once daily. - alendronate (FOSAMAX) 70 mg tablet TAKE 1 TABLET BY MOUTH ONCE EACH WEEK. - atenolol (TENORMIN) 25 mg tablet Take 0.5 tablets by mouth once daily. - meloxicam (MOBIC) 15 mg tablet Take 1 tablet by mouth once daily. - lisinopril (ZESTRIL, PRINIVIL) 10 mg tablet Take 1 tablet by mouth once daily. Was given RX in hospital. - ondansetron orally disintegrating (ZOFRAN ODT) 4 mg disintegrating tablet Take 1 tablet by mouth every 6 hours as needed for Nausea/Vomiting. - hydrOXYzine HCl (ATARAX) 25 mg tablet Take 1 tablet by mouth every 8 hours as needed for Itching/Rash or Anxiety. - polyethylene glycol 3350 (MIRALAX, GLYCOLAX) 17 gram/dose powder Take 17 g by mouth once daily. - Cholecalciferol, Vitamin D3, 1,000 unit cap Take 1 capsule by mouth once daily. - meclizine (ANTIVERT) 25 mg tab Take 1 tablet by mouth three times daily as needed (dizziness). Problem List As Of Date 06/20/2022 Noted Resolved Epidermal Inclusion Cyst (Sebaceous Cyst) : ba*11/23/2009 07/04/2016 Other Acne: potential cause of Epidermal Cyst [*11/23/2009 07/04/2016 Dermatitis or Irritation/Inflammation of Cyst *11/23/2009 07/04/2016 Localized/Limited Pruritic Disorder:of Cyst [L2*11/23/2009 07/04/2016 Hyperlipidemia [E78.5] Osteochondral defect [M95.8] 02/19/2015 Nipple discharge [N64.52] 04/14/2015 11/28/2016 HTN (hypertension) [I10] 06/08/2015 12/06/2016 GERD (gastroesophageal reflux disease) [K21.9] 06/08/2015 Hallux rigidus [M20.20] 06/08/2015 Asthma [J45.909] 06/08/2015 12/20/2017 Tobacco use [Z72.0] 06/08/2015 11/28/2016 History of UTI [Z87.440] 12/08/2015 10/31/2016 Microscopic hematuria [R31.29] 12/08/2015 PVC's (premature ventricular contractions) [I49*04/05/2016 Essential hypertension [I10] 12/06/2016 Fatigue [R53.83] 12/06/2016 12/20/2017 Sinus bradycardia [R00.1] 12/24/2016 Polycythemia, 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 Author Type: Cash Analyst Type: Progress Notes Filed: 06/20/2022 4:15 PM Note Text: POPULATION HEALTH NAVIGATION OUTREACH Action/FYI P/C to patient to update/establish PCP, number invalid. Letter mailed to patients home address on file. Mailed letter 06/20/2022 MM Pt identified by name and : NO Outreach Outcome/Action Unable to reach patient: Phone number not valid / voicemail full Letter mailed Did you use a PCP flex slot to schedule this appointment? N/A Reason for Outreach Care Gap or Scheduling/Wellness visits Payer: Payor: Ante Up / Plan: [employer] HMO / Product Type: HMO / Care Gap Reviewed:: Annual Wellness visit Breast Cancer screening Reminder: Reminder note to check Health Maintenance for items below Health Maintenance items due: COVID-19 VACCINE(1) Never done SPIROMETRY Never done BP CONTROLLED (<130/80) Never done DTAP,TDAP,TD(1 - Tdap) Never done ALPHA-1 ANTITRYPSIN DEFICIENCY SCREENING Never done SHINGRIX VACCINE(1 of 2) Never done DEPRESSION SCREENING due on 07/04/2017 ANNUAL PCP TEAM CHRONIC DISEASE VISIT due on 05/02/2019 MAMMOGRAM due on 05/15/2020 ADVANCE DIRECTIVE DISCUSSION Never done DIABETES SCREEN due on 03/18/2022 Message Sent to Practice: No Navigation Signature: Sarah Calhoun MA June 20, 2022 8:42 AM [facility] 06-20-2022 History of Presen t illness Narrative POPULATION HEALTH NAVIGATION OUTREACH Action/FYI P/C to patient to update/establish PCP, number invalid. Letter mailed to patients home address on file. Pt identified by name and : NO Outreach Outcome/Action Unable to reach patient: Phone number not valid / voicemail full Letter mailed Did you use a PCP flex slot to schedule this appointment? N/A Reason for Outreach Care Gap or Scheduling/Wellness visits Payer: Payor: RONEYPacinian / Plan: ANTHEM MEDIBLUE HMO / Product Type: HMO / Care Gap Reviewed:: Annual Wellness visit Breast Cancer screening Reminder: Reminder note to check Health Maintenance for items below Health Maintenance items due: COVID-19 VACCINE(1) Never done SPIROMETRY Never done BP CONTROLLED (<130/80) Never done DTAP,TDAP,TD(1 - Tdap) Never done ALPHA-1 ANTITRYPSIN DEFICIENCY SCREENING Never done SHINGRIX VACCINE(1 of 2) Never done DEPRESSION SCREENING due on 07/04/2017 ANNUAL PCP TEAM CHRONIC DISEASE VISIT due on 05/02/2019 MAMMOGRAM due on 05/15/2020 ADVANCE DIRECTIVE DISCUSSION Never done DIABETES SCREEN due on 03/18/2022 Message Sent to Practice: No Navigation Signature: Sarah Calhoun MA June 20, 2022 8:42 AM documented in this encounter [facility] documented as of this encounter (statuses as of 06/20/2022) [facility]02-09-2017 History of Past illness Narrative* Problem Noted Date Resolved Date Fatigue 12/06/2016 12/20/2017 History of UTI 12/08/2015 10/31/2016 HTN (hypertension) 06/08/2015 12/06/2016 Asthma 06/08/2015 12/20/2017 Tobacco use 06/08/2015 11/28/2016 Nipple discharge 04/14/2015 11/28/2016 Epidermal Inclusion Cyst (Sebaceous Cyst) : back 11/23/2009 07/04/2016 Other Acne: potential cause of Epidermal Cyst 07/04/2016 Dermatitis or Irritation/Inflammation of Cyst 07/04/2016 Localized/Limited Pruritic Disorder:of Cyst 10/2907/04/2016 documented as of this encounter (statuses as of 03/26/2023) [facility] Evaluation + Plan note Future Appointments Appointment Date:12/27/2022 10:30:00 AM Scheduled Provider:JESUS MANUEL BLOOM Location:[facility] Appointment Type:CTS OV Post Op [facility] Hospital course Narrative No data available for this section [facility] Hospital Discharge instructions No data available for this section [facility] Progress note No data available for this section [facility] Advance Directives No Advanced Directives Records FoundDocuments on File Type Date Recorded 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 Advance Directive(s) 08/14/2016 10:25 AM Summary Purpose Family History No Family History Records FoundNo Family History Records Found Additional Source Comments Source Comments (unrecognize d section and content) In the event this informatio n is protected by the Federal Confidentiality of Alcohol and Drug Abuse Patient Records regulations: The Federal rules restrict any use of the information to criminally investigate or prosecute any alcohol or drug abuse patient.[facility] the event this information is protected by the Federal Confidentiality of Alcohol and Drug Abuse Patient Records regulations: The Federal rules restrict any use of the information to criminally investigate or prosecute any alcohol or drug abuse patient.[facility] Reason for Visit (unrecogniz ed section and content) Reason Comments Orders Care Teams (unrecognized sec tion and content) 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 Start Date End Date ZachSalo [address] [address] Physician Cardiology 03/24/19 Hernandez Lee [address] [facility] [address] [place] [address] Physician Cardiology 03/24/19 Care Team (unrecognized sect ion and content) Care Team Personnel Name: LESLIE HINSON MD Member Role: Primary Care Physician Address: Address: [facility] [address] [place] [address]- [place] Name: SHARLENE ABDUL MD Member Role: Oncologist Address: Address: [facility] [place] [address]- [place] Name: OLENA DIAZ DO Member Role: Radiation Oncologist Address: Address: [address] [facility] [address]- Care Team Related Persons Name: BAHMAN HAWKINS Address: Home [address] [place], [place] [id number] Care Team Personnel Name: LESLIE HINSON MD Member Role: Primary Care Physician Address: Address: [id number] [place] [address]- Name: SHARLENE ABDUL MD Member Role: Oncologist Address: Address: [place] [place] [address]- Name: OLENA DIAZ DO Member Role: Radiation Oncologist Address: Address: [facility] [address]- Care Team Related Persons Name: BAHMAN HAWKINS Address: Home [address] [place], [place] [phone] Care Team Personnel Name: LESLIE HINSON MD Member Role: Primary Care Physician Address: Address: [id number] [place] [address]- Name: SHARLENE ABDUL MD Member Role: Oncologist Address: Address: [facility] [place] [address]- Name: OLENA DIAZ DO Member Role: Radiation Oncologist Address: Address: [facility] [address]- Care Team Related Persons Name: BAHMAN HAWKINS Address: Home [address] [place], [place] [phone] INFORMATION SOURCE (unrecogn ized section and content) DATE CREATED AUTHOR AUTHOR'S ORGANIZ ATION 04/16/2023 [facility] ([place]) FOR RECORDS PERTAINING TO PATIENTS WHO ARE OR HAVE BEEN ENROLLED IN A CHEMICAL DEPENDENCY/SUBSTANCEABUSE PROGRAM, SOME INFORMATION MAY BE OMITTED. This clinical summary was aggregated from multiple sources. Caution should be exercised in using it in the provision of clinical care. This summary normalizes information from multiple sources, and as a consequence, information in this document may materially change the coding, format and clinical context of patient data. In addition, data may be omitted in some cases. CLINICAL DECISIONS SHOULD BE BASED ON THE PRIMARY CLINICAL RECORDS. [facility] [employer] provides no warranty or guarantee of the accuracy or completeness of information in this document.
[2023-11-05] MEDS: 0.9% Saline Lock 10 ML Syringe IV (08:10)
== END | disposition home or self-care (01) ==
PROVIDERS: PCP Family Medicine; Referring Provider Internal Medicine Medical Oncology; Visit Provider Internal Medicine Medical Oncology
DX: C34.11 Malignant neoplasm of upper lobe, right bronchus or lung (principal)
CPT/HCPCS: 71260; Q9967; A4216

== ENCOUNTER → 2023-11-07 | Outpatient (CLI) | payer MEDICARE, MEDICAID, SELFPAY ==
--- NOTE | 2023-11-07 13:45 | RAD_ITS ---
STUDY: X-RAY - ABDOMEN/PELVIS REASON FOR EXAM: Female, 73 years old. abdominal bloating TECHNIQUE: AP supine and upright views of the abdomen and pelvis. COMPARISON: None. FINDINGS: Normal visualized lung bases. There is an unremarkable bowel gas pattern. There is no demonstrated free abdominal air. The visualized liver, spleen and kidneys are grossly normal in size and morphology. Normal soft tissue structures. Normal visualized osseous structures. [employer] Decub and/or Erect IMPRESSION: Normal x-ray examination of the abdomen and pelvis. Electronically Signed: Germán Dangelo MD at 17:30 EST ,
--- OUTSIDE RECORDS SUMMARY | 2023-11-07 14:18 | XMS RPT_ITS | CCD ---
Author Name Unknown Address [address] [place] [address] Organization [facility] Care Team Providers Care Cashier Courtesy Booth Name Role Phone Salo Serrano Unavailable Hernandez Lee Unavailable LESLIE HINSON MD Primary Care Physician Salo Serrano Unavailable Hernandez Lee Unavailable IZABEL [...] Sims Attending Laila HINSON MD, LESLIE [facility] Unavailable Allergies Allergy Classification Reported Allergen(s) Allergy Type Date of Onset Reaction(s) Facility (6 sources) watermelon preparation Drug Allergy 02-12-2018 [facility] Work Phone: Medications Current Medications Medication Drug Class(es) Dates Sig (Normalized) Sig (Original) 8 hr acetaminophen 650 mg extended release oral tablet (1 source) Start: 12-13-2022 End: 12-16-2022 acetaminophen 650 mg oral tablet, extended release Dose : 650 mg = 1 tab(s), Oral, q8h, PRN as needed for pain, X 3 day(s), # 24 tab(s), 0 Refill(s), 12/16/22 9:18:00 EST, Pharmacy: [facility] 074, 157.5, cm, 12/13/22 6:00:00 EST, [...] Non-Invasive [address] ISI DANGELO MD [facility] 04-10-2023 14:58-0400 Heart rate 85 /min DR ISI DANGELO MD [facility] 04-10-2023 14:58-0400 Respiratory rate 18 /min DR ISI DANGELO MD [facility] 04-10-2023 14:58-0400 Systolic Blood Pressure Non-Invasive [address] ISI DANGELO MD [facility] 04-10-2023 14:57-0400 Diastolic Blood Pressure Non-Invasive [address] ISI DANGELO MD [facility] 04-10-2023 14:57-0400 Heart rate 86 /min DR ISI DANGELO MD [facility] 04-10-2023 14:57-0400 Respiratory rate 22 /min DR ISI DANGELO MD [facility] 04-10-2023 14:57-0400 Systolic Blood Pressure Non-Invasive [address] ISI DANGELO MD [facility] 04-10-2023 14:39-0400 Diastolic Blood Pressure Non-Invasive [address] ISI DANGELO MD [facility] 04-10-2023 14:39-0400 Heart rate 87 /min DR ISI DANGELO MD [facility] 04-10-2023 14:39-0400 Reason For Taking VItal Signs DR ISI DANGELO MD [facility] 04-10-2023 14:39-0400 Respiratory rate 21 /min DR ISI DANGELO MD [facility] 04-10-2023 14:39-0400 Systolic Blood Pressure Non-Invasive [address] ISI DANGELO MD [facility] 04-10-2023 14:30-0400 Heart rate 81 /min DR ISI DANGELO MD [facility] 04-10-2023 14:25-0400 Heart rate 82 /min DR ISI DANGELO MD [facility] 04-10-2023 14:20-0400 Heart rate 84 /min DR ISI DANGELO MD [facility] 04-10-2023 11:41-0400 Blood Pressure Cuff Size DR ISI DANGELO MD [facility] 04-10-2023 11:41-[address] ISI DANGELO MD [facility] 04-10-2023 11:41-[address] ISI DANGELO MD [facility] 04-10-2023 11:41-0400 Body temperature 98.42 [degF] DR ISI DANGELO MD [facility] 04-09-2023 14:50-0400 Body height 157.[address] ISI DANGELO MD [facility] 04-09-2023 14:50-0400 Body weight [address] ISI DANGELO MD [facility] 04-09-2023 14:50-0400 Body weight 25.8 kg/m2 DR ISI DANGELO MD [facility] 12-13-2022 14:39-0500 Heart rate 82 /min IZABEL QUIÑONES MD [facility] 12-13-2022 14:39-0500 Reason For Taking VItal Signs IZABEL QUIÑONES MD [facility] 12-13-2022 14:27-0500 Heart rate 83 /min IZABEL QUIÑONES MD [facility] 12-13-2022 14:27-0500 Reason For Taking VItal Signs IZABEL QUIÑONES MD [facility] 12-13-2022 14:15-0500 Heart rate 83 /min IZABEL QUIÑONES MD [facility] 12-13-2022 14:15-0500 Reason For Taking VItal Signs IZABEL QUIÑONES MD [facility] 12-13-2022 12:30-0500 Diastolic Blood Pressure Non-Invasive 74 1 IZABEL QUIÑONES MD [facility] 12-13-2022 12:30-0500 Mean blood pressure 91 mm[Hg] IZABEL QUIÑONES MD [facility] 12-13-2022 12:30-0500 Systolic Blood Pressure Non-Invasive 136 1 IZABEL QUIÑONES MD [address] [place] [address] 12-13-2022 12:15-0500 Diastolic Blood Pressure Non-Invasive 95 1 IZABEL QUIÑONES MD [address] [place] [address] 12-13-2022 12:15-0500 Mean blood pressure 109 mm[Hg] IZABEL QUIÑONES MD [address] [place] [address] 12-13-2022 12:15-0500 Systolic Blood Pressure Non-Invasive 146 1 IZABEL QUIÑONES MD [address] [place] [address] 12-13-2022 12:00-0500 Mean blood pressure 97 mm[Hg] IZABEL QUIÑONES MD [address] [place] [address] 12-13-2022 12:00-0500 Systolic Blood Pressure Non-Invasive 154 1 IZABEL QUIÑONES MD [address] [place] [address] 12-13-2022 11:26-0500 Heart rate 72 /min IZABEL QUIÑONES MD [address] [place] [address] 12-13-2022 11:26-0500 Respiratory rate 18 /min IZABEL QUIÑONES MD [facility] 12-13-2022 10:30-0500 Diastolic blood pressure 80 mm[Hg] IZABEL QUIÑONES MD [address] [place] [address] 12-13-2022 10:30-0500 Mean blood pressure 117 mm[Hg] IZABEL QUIÑONES MD [address] [place] [address] 12-13-2022 10:30-0500 Systolic blood pressure 179 mm[Hg] IZABEL QUIÑONES MD [address] [place] [address] 12-13-2022 10:15-0500 Diastolic blood pressure 79 mm[Hg] IZABEL QUIÑONES MD [facility] 12-13-2022 10:15-0500 Mean blood pressure 114 mm[Hg] IZABEL QUIÑONES MD [facility] 12-13-2022 10:15-0500 Systolic blood pressure 174 mm[Hg] IZABEL QUIÑONES MD [facility] 12-13-2022 10:00-0500 Diastolic blood pressure 77 mm[Hg] IZABEL QUIÑONES MD [facility] 12-13-2022 10:00-0500 Mean blood pressure 115 mm[Hg] IZABEL QUIÑONES MD [facility] 12-13-2022 10:00-0500 Systolic blood pressure 175 mm[Hg] IZABEL QUIÑONES MD [facility] 12-13-2022 09:33-0500 Blood Pressure Location IZABEL QUIÑONES MD [address] [place] [address] 12-13-2022 09:30-0500 Blood Pressure Location IZABEL QUIÑONES MD [facility] 12-13-2022 08:52-0500 Body temperature 97.88 [degF] IZABEL QUIÑONES MD [facility] 12-13-2022 08:52-0500 Respiratory rate 16 /min IZABEL QUIÑONES MD [facility] 12-13-2022 06:00-0500 Blood Pressure Cuff Size IZABEL QUIÑONES MD [facility] 12-13-2022 06:00-0500 Blood Pressure Method IZABEL QUIÑONES MD [facility] 12-13-2022 06:00-0500 Body height 157.5 cm IZABEL QUIÑONES MD [facility] 12-13-2022 06:00-0500 Body temperature 96.08 [degF] IZABEL QUIÑONES MD [facility] 12-13-2022 06:00-0500 Body weight 66.9 kg IZABEL QUIÑONES MD [facility] 12-13-2022 06:00-0500 Heart rate 85 /min IZABEL QUIÑONES MD [address] [place] [address] 12-11-2022 09:21-0500 Blood Pressure Cuff Size IZABEL QUIÑONES MD [address] [place] [address] 12-11-2022 09:21-0500 Blood Pressure Location IZABEL QUIÑONES MD [address] [place] [address] 12-11-2022 09:21-0500 Blood Pressure Method IZABEL QUIÑONES MD [address] [place] [address] 12-11-2022 09:21-0500 Body height 160 cm IZABEL QUIÑONES MD [facility] 12-11-2022 09:21-0500 Body temperature 96.98 [degF] IZABEL QUIÑONES MD [facility] 12-11-2022 09:21-0500 Body weight 66.9 kg IZABEL QUIÑONES MD [address] [place] [address] 12-11-2022 09:21-0500 Diastolic Blood Pressure Non-Invasive 93 1 IZABEL QUIÑONES MD [facility] 12-11-2022 09:21-0500 Heart rate 81 /min IZABEL QUIÑONES MD [address] [place] [address] 12-11-2022 09:21-0500 Systolic Blood Pressure Non-Invasive 157 1 IZABEL QUIÑONES MD [address] [place] [address] 12-11-2022 08:50-0500 SaO2% (BldA) [Mass fraction] 95.2 % IZABEL QUIÑONES MD [facility] Encounters Encounter Date Encounter Type Care Provider Facility Start: 04-10-2023 End: 04-10-[address] ISI DANGELO MD Facility:A Start: 04-10-2023 End: 04-10-[address] ISI DANGELO MD [facility] Start: 03-26-2023 Telephone encounter Leslie Hinson MD Work Phone: Internal Medicine [place] Procedures Date Procedure Procedure Detail Performing Clinician Start: 05-15-2019 Mammography Sarah reyna MA Start: 07-04-2016 Adult depression scr eening assessment Sarah Calhoun MA Start: 03-18-2013 Colonoscopy Sarah reyna MA Abdominal hysterectomy YOVANNY QUIÑONES MD Plan of Treatment Date Care Activity Detail Author Start: 06-28-2023 Influenza vaccination INFLUENZA (Sea son Ended) [facility] Start: 03-18-2023 Colonoscopy COLONOSCOPY [facility] Start: 03-18-2023 COLORECTAL CANCER SCREENING COLORECTAL CANCER SCREENING [facility] Start: 12-20-2022 LIPID SCREEN LIPID SCREEN [facility] Start: 10-28-2022 ADVANCE DIRECTIVE DISCUSSION ADVANCE DIRECTIVE DISCUSSION [facility] Start: 10-28-2022 DEPRESSION ASSESSMENT DEPRESSION ASS ESSMENT [facility] Start: 06-28-2022 Influenza vaccination INFLUENZA (#1) [facility] Start: 03-18-2022 DIABETES SCREEN DIABETES SCREEN [facility] Start: 10-28-2021 ADVANCE DIRECTIVE DISCUSSION ADVANCE DIRECTIVE DISCUSSION [facility] Start: 05-15-2020 Mammography MAMMOGRAM [facility] Start: 05-02-2019 ANNUAL 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 VICTORIA DISEASE VISIT ANNUAL PCP TEAM CHRONIC DISEASE VISIT [facility] Start: 07-04-2017 Adult depression scr eening assessment DEPRESSION SCREENING [facility] Start: 1999 SHINGRIX VACCINE (1 of 2) SHINGRIX V ACCINE (1 of 2) [facility] Start: 1994 COLOGUARD (FIT-DNA) COLOGUARD (FIT-D NA) [facility] Start: [address] COLONOGRAPHY [facility] Start: 1994 FECAL OCCULT BLOOD FECAL OCCULT BLOO D [facility] Start: 1994 SIGMOIDOSCOPY SIGMOIDOSCOPY [facility] Start: 1979 Zoledronic acid therapy ALPHA- 1 ANTITRYPSIN DEFICIENCY SCREENING [facility] Start: 01-09-1968 Urine microalbumin profile DTAP,TDAP ,TD (1 - Tdap) [facility] Start: 1967 BP CONTROLLED (<130/80) BP CONTROLLE D (<130/80) [facility] Start: 1967 SPIROMETRY SPIROMETRY [facility] Start: 1949 COVID-19 VACCINE (#1) COVID-19 VACCI NE (#1) [facility] Immunizations Immunization Date Immunization Notes Care Provider Caesar noriega 12-13-2022 influenza, high-dose , quadrivalent IZABEL QUIÑONES MD [facility] 07-29-2017 influenza, high dose seasonal, preservative-free Sarah Calhoun MA [facility] 08-10-2016 influenza, high dose seasonal, preservative-free Sarah Calhoun [facility] Work Phone: 03-15-2016 pneumococcal conjuga te vaccine, 13 valent Sarah Calhoun MA [facility] 07-22-2015 influenza, seasonal, injectable Sarah Calhoun MA [facility] 07-28-2014 influenza, seasonal, injectable Sarah Calhoun MA [facility] 02-26-2014 pneumococcal polysaccharide vaccine, 23 valent Sarah Calhoun MA [facility] Payers Date Payer Category Payer Private Health Insurance [id number] 2022 Private Health Insurance [id number] 2022 Private Health Insurance [id number] 2022 Private Health Insurance [id number] 2019 Unknown ANTHCANDE BLUE [facility] S AND BLUE SHIELD ANTHEM MEDIBLUE O [id number] 2019-Present [phone] [address] [place] [address] O [id number] 1950 Unknown [id number] 1950 Unknown [id number] 1949 Unknown [id number] 27 1950 Unknown [id number] 1950 Unknown [id number] Social History Date Type Detail Facility Start: 11-17-2015 [facility] End: 11-04-2015 History of tobacco use Current smoker [facility] End: 11-04-2015 History of tobacco use Cigarette Smoker [facility] Start: 11-17-2015 Cigarettes smoked cu rrent (pack per day) - Reported 0.3 [facility] Start: 11-17-2015 Tobacco use and exposure Smoke less tobacco non-user [facility] Start: 09-15-2018 Alcohol intake 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 (finding) [facility] Start: 1950 Sex Assigned At Not on file [facility] Start: 12-11-2022 Tobacco smoking status Light t obacco smoker (finding) [facility] Medical Equipment Procedure Code Equipment Code Equipment Origin al Text Equipment Identifier Dates Obx-[id number] Implant - [id number] Start: 06-15-2015 Functional Status Date Assessment Result Facility 04-10-2023 Functional Status ID band on, Allergy Band on, Bed in low position, Wheels locked, Upper/Half-Length side-rails up, Safety level maintained [facility] 04-10-2023 Functional Status [facility] 04-10-2023 Functional Status [facility] 04-09-2023 Functional Status Sensory Deficits None A [facility] 12-13-2022 Functional Status Up to chair, Warm blankets [facility] 12-13-2022 Functional Status Lunch Percent 100 [facility] 12-13-2022 Functional Status [facility] 12-13-2022 Functional Status Room check performed [facility] 12-11-2022 Functional Status Sensory Deficits None A [facility] Mental Status Date Assessment Result Facility 04-10-2023 Mental Status Oriented x 4 [facility] 04-10-2023 Mental Status [facility] 12-13-2022 Mental Status Oriented x 4, Follows simple commands [facility] Clinical Notes 12-06-2016 to 04-10-2023 Telephone Encounter [...] Levi Chadwick/Sex: 1950 Female Med Rec #: [id number] Physician: Financial #: [id number] Pt. Type: O Room/Bed: / Admit/Disch: 04/10/23 11:09:00 - Institution: Allergies identified in patient's electronic medical record at time of printing on 04/10/23 Entry 1 Substance Watermelon Reaction Type Allergy Last Modified By: Jyoti Thomas RN 11/14/22 10:05:05 Case Attendance- CT Entry 1 Entry 2 Entry 3 Case Attendee LIS SWANSON MD, Sheela Montelongo Role Performed Radiologist Procedure Procedure Nurse Foreign Legal Consultant Details Time In 04/10/23 13:14:00 04/10/23 13:03:00 [...] for Time Out JARED [place], Confirm/obtain preop [employer] antibiotic order., Alcohol based prep dry, Double verification of sterility indicators complete Instrument Sterility Team Members LIS SWANSON MD Verifying Sterility Procedure CT Biopsy Neck (SN) Last Modified By: JARED [place] 04/10/23 13:15:59 Skin Prep - CT Entry [address] Biopsy Neck (SN) Skin Prep Prep Area Abdomen Side Right By [facility] Prep Agents Chloraprep Hair Removal Method N/A [...] during the perioperative period. Outcomes Met? Yes Cashier Courtesy Booth JARED [place] Completing Procedure Plan Last Modified By: JARED [place] 04/10/23 13:14:00 Radiology Lines and Procedures- CT Entry 1 Radiology Sedation Case Times Sedation Start Time 04/10/23 13:25:00 Sedation Stop Time 04/10/23 14:29:00 Sedation Total Time 1 hour 5 minutes Radiology - Fluid/Drainage RAD - CT Guidewires, Cath... [facility] Biopsy Needle [id number] Radiology Urinary Catheter Radiology - CT Other [...] [place] 04/10/23 14:46 Sheela Zhang 04/10/23 15:00 [facility] 04-10-2023 Procedure note Brief IR Post Procedure Note - Outpatient Pre Procedure Dx: Left parotid lesion, non-dx FNA Post Procedure Dx: Same Procedure: 1. CT core biopsy Satellite Project Site Monitor: Steve Honing Machine Set Up Operator Tool: None Anesthesia: Local, moderate sedation EBL: Minimal [...] MD Vascular & Interventional [facility] ([facility]) [email or web address]! Pager: [phone] [facility] Dept (20/05): [phone] [facility] [phone] [facility] Digitally Signed by LIS SWANSON MD on 04/10/2023 03:26 PM [facility] 04-10-[address] Procedure Record Summary Primary Physician: Finalized Date/Time: 04/10/23 15:00:07 Pt. Name: JUAN HAWKINS Levi Chadwick/Sex: 1950 Female Med Rec #: [id number] Physician: Financial #: [id number] Pt. Type: O Room/Bed: / Admit/Disch: 04/10/23 11:09:00 - Institution: Allergies identified in patient's electronic medical record at time of printing on 04/10/23 Entry 1 Substance Watermelon Reaction Type Allergy Last Modified By: Jyoti Thomas RN 11/14/22 10:05:05 Case Attendance- CT Entry 1 Entry 2 Entry 3 Case Attendee LIS SWANSON MD, RN Sheela Alcantara Role Performed Radiologist Procedure Procedure Nurse Foreign Legal Consultant Details Time In 04/10/23 13:14:00 04/10/23 13:03:00 [...] RN Jennifer M Verbal Order Read LIS SAWNSON MD, MITRYAN MD KAR, MITRYAN MD Back [...] for Time Out JARED [place], Confirm/obtain preop [facility] antibiotic order., Alcohol based prep dry, Double verification of sterility indicators complete Instrument Sterility Team Members LIS SWANSON MD Verifying Sterility Procedure CT Biopsy Neck (SN) Last Modified By: JRAED [place] 04/10/23 13:15:59 Skin Prep - CT Entry [address] Biopsy Neck (SN) Skin Prep Prep Area Abdomen Side Right By [facility] Prep Agents Chloraprep Hair Removal Method N/A [...] during the perioperative period. Outcomes Met? Yes Cashier Courtesy Booth JARED [place] Completing Procedure Plan Last Modified By: JARED [place] 04/10/23 13:14:00 Radiology Lines and Procedures- CT Entry 1 Radiology Sedation Case Times Sedation Start Time 04/10/23 13:25:00 Sedation Stop Time 04/10/23 14:29:00 Sedation Total Time 1 hour 5 minutes Radiology - Fluid/Drainage RAD - CT Guidewires, Cath... [facility] Biopsy Needle [id number] Radiology Urinary Catheter Radiology - CT Other [...] [place] 04/10/23 14:46 Sheela Zhang 04/10/23 15:00 [facility] 04-10-2023 Hospital Discharg e instructions Patient Education 04/10/2023 12:44:59 Radiology- Procedure/Biopsy 02/10/2020 (CUSTOM) MILAN Radiology Procedure/Biopsy Discharge Instructions Interventional Radiology [facility] [address] [address] Today, you had a biopsy of your [...] 1 to 2 days following the procedure. Hqbw-bcl-gspacnv pain medication should be used for pain [...] below: For the first 24 hours, call [phone] After 24 hours, contact the physician who [...] until you are awake and alert. Take ilcx-hkv-oonluls and prescription medicines only as told by [...] 08/04/2014 Document Revised: 09/26/2018 Document Reviewed: 02/02/2017 [employer] Patient Education 2020 [employer]. Follow Up Care 03/27/2023 08:25:58 With:ISI DANGELO MD Address: JULI Richards [address] [place] [address] [place] [address]- When: Unknown Comments:Follow-up as scheduled [facility] 04-10-2023 Summary of episod e note Discharge Instructions Thank you for allowing [facility] to assist you with your healthcare needs. The following is important discharge information regarding your hospital visit. What to do next Follow Up Appointments Follow Up with ISI DANGELO MD When Why: Follow-up as scheduled Where: [facility] [address] [facility] [place] [address]- Allergies Watermelon (Hives) Medications Please ask your [...] medication providers or retail pharmacies. Education Materials MILAN Radiology Procedure/Biopsy Discharge Instructions Interventional Radiology [facility] [address] [place] [address] Today, you had a biopsy of your [...] 1 to 2 days following the procedure. Egoc-ldh-kakgfkh pain medication should be used for pain [...] below: For the first 24 hours, call [phone] After 24 hours, contact the physician who [...] until you are awake and alert. Take vqjn-aub-nyrubku and prescription medicines only as told by [...] 08/04/2014 Document Revised: 09/26/2018 Document Reviewed: 02/02/2017 [employer] Patient Education 2020 [employer]. Additional Information VACCINATE! IT SAVES LIVES! Members of the community who have not yet received the COVID-19 vaccine and would like to receive it can visit one of [facility] vaccine clinics. There are many vaccine clinic locations within the [facility]. For locations and available times, please visit [email or web address].o hio.gov/. It is important to note that some COVID mobile vaccine clinics are held outdoors and may be canceled in rainy or stormy conditions. To learn more about pediatric vaccinations (ages 5-11), we invite you to visit the [facility] webpage. [email or web address]://www.[email or web address]/p [email or web address]-Rscph-Irkvujiunwq-Freq lzlwjd-Qtsvl-Nwbmlwecm.html To learn more about the COVID-19 vaccine, we invite you to visit the CDC website for a list of frequently asked questions.https://www.cdc.gov/co ronavirus/2019-ncov/vaccines/faq .html [employer] Patient Portal Access Instructions: Stay connected with your healthcare team and access your personal medical information anytime with the [employer] Patient Portal. Please follow the directions below to create your [employer] account: 1.Access the email account you provided upon registration to the hospital/physician office.2.Look for an invitation email from [facility].3.Open the email and access the invitation link: Accept Invitation to [facility].4.Fill in the required mar to create your account. To access your account, visit [email or web address]. Click the blue button labeled Access Patient [...] you will allow to register on the [facility] [employer] Patient Portal for access to your information. You can also access the [facility] [employer] Patient Portal on the [facility] lisa. Simply click on Patient Portal and then log into your account. If you would like to receive a full copy of your medical records, please contact the [facility] Medical Records Department by calling [phone], Saturday through Saturday between 8 a.m. and [...] Call your local pharmacy or go to http://bit.CheckiO/4O4Ll6j to find one close to you.3.Make use of household items: Use cat litter or old coffee grounds to dispose medications if other options are not available. Mix your drugs with these household products, seal them in an airtight container and throw it into the garbage. Call [facility]: [phone] to be sure your drugs can be [...] aware that I should contact my doctor. 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 Advised that Patient is has not been seen at the [facility] since 2018. She is not a Patient of [facility] Mcdaniels/[facility] will contact ordering Doctor. Era Guevara LPN documented in this encounter [facility] 12-20-2022 Note ORIGINAL PROCEDURE: DOS: 11/30/2022 [...] Sign Date: 12/20/2022 1:05:37 AM [facility] 12-13-2022 Note Discharge Instructions Thank you for [...] 10:30 AM EST JESUS MANUEL BLOOM APRN-ARELIS [facility] Follow Up Appointments Follow Up with JESUS MANUEL BLOOM APRN-ARELIS When 12/27/2022 10:30 AM EST Where: [address] [facility] [place] [address]- Follow Up with LESLIE HINSON When Within 1-2 days Where: [facility] [address] [place] [address]- [phone] Business (1) The Following Activity and Diet [...] for pain Duration: 3 Days Pickup at [facility] 074 Unchanged albuterol (Albuterol (Eqv-Proventil HFA) [...] by mouth Once a day Pharmacy Information [facility] 074: [address] [place], [place] [id number] [phone] What How Much When Comments Stop Taking [...] and skin patches. Some may be available becj-mri-niggsqf and others require a prescription. Antidepressant medicine [...] Document Reviewed: 01/22/2013 ExitCare Patient Information 2015 [employer] This information is not intended to replace [...] and water are not available, use hand administration manager. ? Change your dressing as told by [...] until your health care provider approves. Take iqvu-xur-gdcgvbs and prescription medicines only as told by [...] 05/03/2006 Document Revised: 09/26/2018 Document Reviewed: 07/26/2017 ElseYuan[employer] Patient Education 2020 [employer]. Additional Information VACCINATE! IT SAVES LIVES! Members of the community who have not yet received the COVID-19 vaccine and would like to receive it can visit one of [facility] vaccine clinics. There are many vaccine clinic locations within the [facility]. For locations and available times, please visit [email or web address].o coo.gov/. It is important to note that some COVID mobile vaccine clinics are held outdoors and may be canceled in rainy or stormy conditions. To learn more about pediatric vaccinations (ages 5-11), we invite you to visit the [facility] webpage. https://www.akronStyleQs.org/p ages/3299-Btvrd-Gemkxomyhpt-Freq zlvhyo-Qohhs-Wnivhaldx.html To learn more about the COVID-19 vaccine, we invite you to visit the CDC website for a list of frequently asked questions. https://www.cdc.gov/coronavirus/ 2019-ncov/vaccines/faq.html [employer] Patient Portal Access Instructions: Stay connected with your healthcare team and access your personal medical information anytime with the [employer] Patient Portal.If you would like a full copy of your medical records, please contact the [facility] Medical Records Department, Saturday through Saturday between 8a.m. and 4:30p.m. Please follow the directions below to access the portal: 1.Access the email account you provided upon registration to the [facility].2.Look for an invitation email from [facility].3.Open the email and access the invitation link: Accept Invitation to [facility] [employer]4.Fill in the required mar to create your account. Sign into [email or web address] with your username and password that you [...] you will allow to register on the [employer] Patient Portal for access to your information. You can also access the [employer] Patient Portal on the [employer] lisa. Simply click on Health Records under Health Data and then click on the Sightly logo. HOW TO SAFELY DISPOSE OF PRESCRIPTION [...] Call your local pharmacy or go to [email or web address] to find one close to you.3.Make use of household items: Use cat litter or old coffee grounds to dispose medications if other options are not available. Mix your drugs with these household products, seal them in an airtight container and throw it into the garbage. Call [facility]: [phone] to be sure your drugs can be [...] been reviewed and explained to me and I,JAUN HAWKINS understand my current condition and have read and understand these discharge instructions. I have received a written copy of the plan/instructions. If I have questions, I am aware that I should contact my doctor. 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 Some may be available gicc-bvn-ykisbcv and others require a prescription. Antidepressant medicine [...] Document Reviewed: 01/22/2013 ExitCare Patient Information 2015 [employer] This information is not intended to replace [...] and water are not available, use hand administration manager. ?Change your dressing as told by your [...] until your health care provider approves. Take dywz-kkh-lkpqvuk and prescription medicines only as told by [...] 05/03/2006 Document Revised: 09/26/2018 Document Reviewed: 07/26/2017 ActiveO Patient Education Terascore. Follow Up Care 11/29/2022 16:22:14 With:LESLIE HINSON Address: [facility] [address] [place] [phone] Business (1) When:1-2 days With:JESUS MANUEL BLOOM DISTRIBUTION SUPERVISOREDITH [facility] Address: [address] [place] [address] [place] [address]- When:12/27/2022 10:30:00 [facility] 12-13-2022 Note Date of Service 12/13/2022 Discharge [...] Where: [address] [facility] Cardiothoracic Surgery [place] [id number]- Discharge Diet Discharge Diet - Ordered -- [...] by NAOMI MICHAELS on 12/13/2022 03:23 PM [facility] 12-13-2022 Note ORIGINAL EXAMINATION: ONE XRAY [...] Sign Date: 12/13/2022 9:23:26 AM Ordering Provider: [facility] 12-13-2022 Note ORIGINAL EXAMINATION: ONE XRAY [...] Sign Date: 12/13/2022 9:23:26 AM Ordering Provider: [facility] 12-13-2022 Anesthesiology Consult note Patient: JUAN HAWKINS [...] list: Medical Aortic stenosis / SNOMED CT 784511193 / Confirmed Asthma / SNOMED CT 041828901 / Confirmed High blood pressure / SNOMED CT 35674279 / Confirmed Hypercholesterolemia / SNOMED CT 31156031 / Confirmed Cancer of right lung / SNOMED CT 751991106 / Confirmed Tobacco abuse / SNOMED CT 122184365 / Confirmed, Active Problems (13) Aortic stenosis Arthritis Asthma Back pain Cancer of right lung Constipation Glasses High blood pressure Hypercholesterolemia Migraine Palpitations Presence of dental prosthetic device Tobacco abuse Histories Past Medical History: Active High blood pressure (17406892) Hypercholesterolemia (58019234) Family History: Cancer Father HTN - Hypertension Father Pacemaker catheter, device Brother Alzheimer disease Mother Procedure history: Appendectomy (562181965). Abdominal hysterectomy partial (042000854). Comments: 12/11/2022 9:29 JARED Cintron partial Amputation of finger of right hand (7380210034). Dilation and curettage (36877058). Cataract extraction (03584576). Comments: 12/11/2022 9:28 JARED Cintron bilateral Social [...] EST Quincy BERMUDEZ . Assessment and Plan [place] Society of Anesthesiologists (ASA) physical status classification: [...] NELSON CORONEL DO on 12/13/2022 05:56 AM [facility] 06-20-2022 Note Patient Outreach (NE TNAV) JUAN HAWKINS ([id number]) 1950 F [facility] Date Time Provider Department 06/20/22 SARAH [...] Care Gap or Scheduling/Wellness visits Payer: Payor: [employer] AND BLUE SHIELD / Plan: [employer] HMO / Product Type: HMO / Care [...] Visit: Population Health Navigation Outreach [[id number]] Cmt: [place] Lacy Gaps Prescriptions as of 06/20/2022 - [...] by KIAN POPULATION BLUE NAVIGATORSARAH on 06/20/22 [facility] 06-20-2022 Note HNO ID: [id number] Author: Sarah Calhoun MA Service: ? Author Type: Cert Occupational Therapy Asst Type: Progress Notes Filed: 06/20/2022 4:15 PM [...] Care Gap or Scheduling/Wellness visits Payer: Payor: [employer] / Plan: [employer] MED[employer]LUE HMO / Product [...] Calhoun MA June 20, 2022 8:42 AM [facility] 06-20-2022 History of Presen t illness Narrative [...] Care Gap or Scheduling/Wellness visits Payer: Payor: [employer] / Plan: ANTHEM MEDIBLUE HMO / Product [...] 2022 8:42 AM documented in this encounter [facility] documented as of this encounter (statuses as of 06/20/2022) [facility]02-[facility] History of Past illness Narrative* Problem [...] of this encounter (statuses as of 03/26/2023) [facility] App[facility]ments [facility] Evaluation + Plan note Future Appointments Appointment Date:12/27/2022 10:30:00 AM Scheduled Provider:JESUS MANUEL BLOOM Location:[facility] Appointment Type:CTS OV Post Op [facility] Hospital course Narrative No data available for this section [facility] Hospital Discharge instructions No data available for this section [facility] Progress note No data available for this section [facility] Advance Directives No Advanced Directives Records FoundDocuments on File Type Date Recorded 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 Advance Directive(s) 08/14/2016 10:25 AM [...] or prosecute any alcohol or drug abuse patient.[facility] the event this information is protected by the Federal Confidentiality of Alcohol and Drug Abuse Patient Records regulations: The Federal rules restrict any use of the information to criminally investigate or prosecute any alcohol or drug abuse patient.[facility] Reason for Visit (unrecogniz ed section and content) Reason Comments Orders Care Teams (unrecognized sec tion and content) Cashier Courtesy Booth Relationship Specialty Start Date End Date ZachSalo [address] [address] Physician Cardiology 03/24/19 Hernandez Lee [address] [facility] [address] [place] [address] Physician Cardiology 03/24/19 Care Team (unrecognized sect ion and content) Care Team Personnel Name: LESLIE HINSON MD Member Role: Primary Care Physician Address: Address: [facility] [address] [place] [address]- [place] Name: SHARLENE ABDUL MD Member Role: Oncologist Address: Address: [facility] [place] [address]- [place] Name: OLENA DIAZ DO Member Role: Radiation Oncologist Address: Address: [address] [facility] [place] [address]- Care Team Related Persons Name: BAHMAN HAWKINS Address: Home [address] [place], [place] [id number] Care Team Personnel Name: LESLIE HINSON MD Member Role: Primary Care Physician Address: Address: [place] [place] [address] [place] [address]- Name: SHARLENE ABDUL MD Member Role: Oncologist Address: Address: [facility] [place] [address]- Name: OLENA DIAZ DO Member Role: Radiation Oncologist Address: Address: [facility] [place] [address]- Care Team Related Persons Name: BAHMAN HAWKINS Address: Home [address] [place], [place] [id number] Care Team Personnel Name: LESLIE HINSON MD Member Role: Primary Care Physician Address: Address: [address] [place] [address]- Name: SHARLENE ABDUL MD Member Role: Oncologist Address: Address: [facility] [place] [address]- Name: OLENA DIAZ DO Member Role: Radiation Oncologist Address: Address: [facility] [place] [address]- Care Team Related Persons Name: BAHMAN HAWKINS Address: Home [address] [place], [place] [id number] INFORMATION SOURCE (unrecogn ized section and content) DATE CREATED AUTHOR AUTHOR'S ORGANIZ ATION 04/16/2023 [facility] ([place]) FOR RECORDS PERTAINING TO PATIENTS WHO ARE [...] BE BASED ON THE PRIMARY CLINICAL RECORDS. [facility] [employer] provides no warranty or guarantee of the accuracy or completeness of information in this document.
== END | disposition home or self-care (01) ==
LOC: RAD 13:39
PROVIDERS: PCP Family Medicine; Referring Provider Physician Assistant; Visit Provider Physician Assistant
DX: R14.0 Abdominal distension (gaseous) (principal)
CPT/HCPCS: 74019

== ENCOUNTER 2023-11-27 08:28 | Day surgery (SDC) | payer MEDICARE, MEDICAID, SELFPAY ==
[2023-11-27] VITALS (8 sets, daily range): BP systolic 72–140; BP diastolic 48–87; PULSE 88–95; RESP 16–17; TEMP 36.2–36.4; O2SAT 92–100; BMI 22.6
[2023-11-27] MEDS: Lactated Ringers 1,000 ML 15 ML IV (09:20)
--- NOTE | 2023-11-27 09:35 | HP.PCM_ITS ---
History and Physical Date of Admission: 11/27/23 73-year-old woman presented with dizziness, CTA on 08/21/2022 showed right upper lobe nodule with cavitation. She underwent CT-guided biopsy 10/11/2022. Pathology showed NSCLC, squamous cell type. She was referred for further evaluation and management. MRI brain on 10/18/2022 showed no metastatic disease, PET/CT done on 10/24/2022 showed activity in L parotid gland, 2 RUL nodules with one infiltrating the mediastinum. She was seen by thoracic surgery, had mediastinotomy on 12/13/2022, R4, R2,L4 and pre-tracheal nodes were negative. She was diagnosed with Stage IIIB NSCLC. Surgical management was not possible so chemotherapy and radiation was recommended. Completed combined chemotherapy- Taxol/Carboplatin on 01/07/2023- 02/11/23 x 6 cycles. Finished Radiation on 02/15/2023. CT c/a on 03/11/2023 showed R lung mass which is more solid now. Had biopsy on Parotid done in [place] on 04/10/2023 which showed Warthin's tumor. PET/CT on 05/21/2023 showed persistent/progressive disease in RUL. Pt presented to [facility] ED on 06/04/23 with pain, CTA chest was negative for PE. She was taking some pain pills given to her by [facility] ED provider on 06/03/23. Believes that was hydrocodone/acetaminophen, she only took 1 pill daily at HS and pain was modestly controlled. She presented to [facility] ED with SOB and chest pain on , a second CTA chest was negative for PE, but again demonstrates chronic interstitial and emphysematous changes most severe in the upper lobes and an irregular mass in the right upper lobe measuring 2.9 x 2.4 cm extending to the pleural surface in association with pleural thickening. She was given morphine while in the ED and discharged home with a 3 day rx for oxycodone 5 mg to use Q6H prn. Guardant reported MSI-high not detected, no additional targetable mutations were identified. PD-L1 is not available at this time. Started therapy with Cisplatin and Gemzar on 06/25/2023. Developed Ischemic bowel disease and C. diff colitis requiring colectomy and colostomy on 07/02/2023. Had CT chest on 11/05/2023 and comes for follow up. [facility] Medical History Alopecia Arthritis Asthma Back pain Benign neoplasm of colon Cancer Cancer related pain Cardiology follow-up encounter Chronic constipation Contact with and (suspected) exposure to other viral communicable diseases COPD (chronic obstructive pulmonary disease) COVID-19 Easy bruising Encounter for education Essential hypertension Fatigue Former smoker Gastric reflux Generalized weakness High cholesterol History of echocardiogram History of edema History of irregular heartbeat History of stress test Hyperlipidemia Hypertension Hypokalemia Mild aortic stenosis Nicotine dependence Pneumonia Restless legs Shortness of breath on exertion Wears dentures Wears glasses Surgical History History of amputation of finger of right hand History of appendectomy History of breast surgery History of cataract extraction History of creation of ostomy History of cystoscopy History of D&C History of hysterectomy History of toe surgery History of tonsillectomy Status post [place]eno procedure Family History Father Cancer spinalMother Alzheimer's diseaseBrother Pacemaker Social History household members: spouse pets and animals: Yes (dogs) Smoking Status: Former smoker how long ago did patient quit smokin alcohol intake: former substance use type: does not use Intake Vital Signs 09/17/2313:43 11/07/2410:02 11/07/2410:06 Height 5 ft 2 in 5 ft 2 in 5 ft 2 in Weight: 58.995 kg BMI 23.8 BP 132/73 H Blood Pressure Location Lt brachial Position Sitting Respiration 18 Pulse 96 Pulse Source Monitor Temp 98.4 F Temperature Source Temporal Artery Pulse Oximetry (%) 93 Oxygen Delivery Method room air Intake Is patient in pain?: No Allergies watermelon Allergy (Intermediate, Verified 11/07/23 13:19) Hives Medications albuterol sulfate 90 mcg/actuation aerosol inhaler 2 puff inhalation Q4H PRN SHORTNESS OF BREATH/WHEEZING 04/17/19 [History Confirmed 11/07/23] atorvastatin 10 mg tablet 10 mg PO QHS CHOLESTEROL #90 tabs 04/17/21 [Rx Confirmed 11/07/23] montelukast 10 mg tablet 10 mg PO DAILY ALLERGIES 08/21/22 [History Confirmed 11/07/23] lisinopril 20 mg tablet 20 mg PO DAILY BLOOD PRESSURE 12/06/22 [History Confirmed 11/07/23] Hair prostethesis #1 ea 01/17/23 [Rx Confirmed 11/07/23] budesonide-formoterol HFA 160 mcg-4.5 mcg/actuation aerosol inhaler (Symbicort) 2 puff inhalation BID COPD 03/18/23 [History Confirmed 11/07/23] gabapentin 300 mg capsule 300 mg PO QHS NERVE PAIN 03/18/23 [History Confirmed 11/07/23] colestipol 1 gram tablet 1 g PO BID CHOLESTEROL #60 tabs 04/16/23 [Rx Confirmed 11/07/23] pantoprazole 40 mg tablet,delayed release 40 mg PO DAILY ACID REFLUX #30 tabs 07/25/23 [Rx Confirmed 11/07/23] dicyclomine 10 mg capsule 10 mg PO BID IRRITABLE BOWELS 08/21/23 [History Confirmed 11/07/23] fluticasone furoate 100 mcg/actuation blister powder for inhalation (Arnuity Ellipta) 1 inh inhalation DAILY SHORTNESS OF BREATH/WHEEZING 08/21/23 [History Confirmed 11/07/23] lidocaine-prilocaine 2.5 %-2.5 % topical cream 1 applic topical ONCE PRN PORT ACCESS 30 days #30 grams 08/21/23 [Rx Confirmed 11/07/23] mirtazapine 15 mg tablet 15 mg PO QHS DEPRESSION 08/21/23 [History Confirmed 11/07/23] ondansetron HCl 4 mg tablet 4 mg PO TID PRN NAUSEA/VOMITING 08/21/23 [History Confirmed 11/07/23] fluconazole 100 mg tablet 100 mg PO DAILY 7 days #7 tabs 08/24/23 [Rx Confirmed 11/07/23] vancomycin 125 mg capsule 125 mg PO Q6H 11 days #44 caps 08/24/23 [Rx Confirmed 11/07/23] Central Venous Access Central Venous Access: Yes Diagnostic Data PET, CT Tumor Imaging 05/21/23 09:00 IMPRESSION: 1. ABNORMAL EXAMINATION INDICATIVE OF MALIGNANT-VIABLE NEOPLASM. 2. Increased radiopharmaceutical concentration redefined in the right upper lung field, right upper lobe fulfills quantitative criteria for neoplasia. (Kendra et al, Journal of Nuclear Medicine 31:1950, 1990). 3. Newly visualized enhanced tracer uptake noted in the right thoracic perihilum does not fulfill quantitative criteria for malignant transformation (Jayro et al, Journal of Clinical Oncology, 16:2142, 1998). 4. There is interim resolution of the prior defined second right upper lobe hypermetabolic focus. 5. Newly identified increased radiopharmaceutical concentration manifest in the left interlobar lymph node basin does not fulfill quantitative criteria for viable malignancy. 6. Persistent increased uptake noted in the left parotid space may be further investigated with CT of the neck with intravenous contrast if clinically indicated. 7. Overall, compared to the previous FDG-PET CT study dated 10/24/2022, there is persistent viable neoplasm noted localized to the right upper lung field, right upper lobe manifesting an interval quantitative partial metabolic response. There is interval quantitative complete metabolic response to the second right upper field hypermetabolic focus as defined above.? Electronic Signature Germán Campbell D.O. Accurate Quantification of SUVs for this report are calculated using the exclusive Transactiv[employer] Technology. (U.S. Patent No. [id number] [id number] 983 B2 [phone] [place] patent [id number] [id number] [id number]). Standardization and correction of the FDG SUV metric via ACCUQUAN technology allow for vendor non-specific objective quantitative examination comparison and optimization of the sensitivity and specificity of the FDG PET-CT examination. . Electronically Signed: Germán Campbell, at 21:57 EDT , Exam Physical Exam Const alert, oriented x3 and no apparent distress HEENT normocephalic, external ears normal and external nose normal Eyes no scleral icterus Neck no lymphadenopathy and supple Lymph Lymphatic: no lymphadenopathy noted Chest Chest Narrative: Port R IC area. Resp normal respiratory effort and clear to auscultation bilaterally Cardio regular rate, regular rhythm, S1 normal heart sound and S2 normal heart sound GI GI Narrative: + colostomy Extremity no clubbing, cyanosis or edema Coding Level of Care Code Off vis,est,level 4 Exam Problem Focused Diagnoses NSCLC of upper lobe C34.10 Anemia, unspecified type D64.9 Anemia type: unspecified type Assessment and Plan Assessment and Plan (1) NSCLC of upper lobe: Status: Chronic Comment: NSCLC lung cancer-squamous cell type. S/P chemo-radiation therapy. Lung nodule is more solid post therapy. Comes for follow up. PET/CT on 05/21/2023 reviewed, shows persistent/progressive disease in RUL. Guardant report reviewed, MSI-high not detected, no additional targetable mutations were identified. PD-L1 is not available. Started Chemotherapy with Cisplatin and Gemzar on 06/25/2023. Had Colitis s/p exploratory laparotomy, sigmoidectomy and creation of transverse colostomy by Dr. Dale on 07/02/23. C.diff was positive on 08/21/2023. She has finished Vancomycin. Comes for follow up CT 11/05/2023 reviewed, shows stable RUL mass with Cavitation Counts and chemistry reviewed. Discussed further management- reassess tumor in 3 months. Plan: To do observation. Obtain CT chest to assess disease status in 3 months. (2) Anemia: Status: Acute Qualifiers: Anemia type: unspecified type Qualified Code(s): D64.9 - Anemia, unspecified Comment: Hgb 5.5 today. Had exploratory laparotomy, sigmoidectomy and creation of transverse colostomy by Dr. Dale on 07/02/23. Plan: EGD to evaluate upper GI tract for signs of acute on chronic blood loss anemia. She was explained alternatives, risk, benefits including nondistended bleeding, infection, perforation, need for emergent surgery and . She will have an ASA of 3. To check FOBT. Transfuse 2 units PRBC. Orders: Orders CBC W/Diff, Automated 11/07/23 C34.10 - Malignant neoplasm of upper lobe, unspecified bronchus or lung, K92.2 - Gastrointestinal hemorrhage, unspecified Comprehensive Metabolic Profil 11/07/23 C34.10 - Malignant neoplasm of upper lobe, unspecified bronchus or lung LDH 11/07/23 C34.10 - Malignant neoplasm of upper lobe, unspecified bronchus or lung Ferritin 11/07/23 D64.9 - Anemia, unspecified Iron+Iron Binding Capacity 11/07/23 D64.9 - Anemia, unspecified Stool Occult Blood iFOB Today D64.9 - Anemia, unspecified
--- NOTE | 2023-11-27 10:00 | EGD_PTH ---
PATHOLOGY RESULTS PATIENT: JUAN HAWKINS LOC: EN U#:[id number] AGE/SX: 73/F ROOM: RE11/27/[address]: Dr. Kwadwo Morris DO : 1950 BED: DIS: 11/27/2023 SPEC #: [id number] RECD: 11/28/23 07:25 STATUS: RAQUEL RERoxi #: [id number] VERONICA: 11/27/23 10:[address]: Kwadwo Morris DEPT: SURGICAL PATHOLOGY RECD BY: Selena Montes ENTERED: 11/28/23 07:26 SP TYPE: EGD BIOPSY OTHR DR: Dr. Hernandez Mcqueen MD Tissues: Gastric mucous membrane Procedures: Surgery Specimen Level IV HEADER OPERATION: Colonoscopy, EGD, biopsy PRE-OP DIAGNOSIS: NSCLC of upper lobe, anemia TISSUE SUBMITTED: Gastric antrum MICROSCOPIC DIAGNOSIS Gastric antrum, biopsy: Mild chronic inflammation. See comment. AM:freda 11/29/2023 COMMENT The results of immunohistochemistry for Helicobacter pylori will be reported separately ([id number]). MICROSCOPIC DESCRIPTION Slides are reviewed. GROSS DESCRIPTION Received in fixative is one container labeled with the patient's name and designated gastric antrum biopsy. The specimen consists of two irregular fragments of light santana soft tissue that in aggregate measure 1.0 x 0.5 x 0.1 cm. The specimen is totally submitted in one cassette. / SJ:freda 11/28/2023 TC:3 CPT: 72125
--- NOTE | 2023-11-27 10:00 | IMM_PTH ---
PATHOLOGY RESULTS PATIENT: JUAN HAWKINS LOC: EN U#:[id number] AGE/SX: 73/F ROOM: RE11/27/[address]: Dr. Kwadwo Morris DO : 1950 BED: DIS: 11/27/2023 SPEC #: [id number] RECD: 11/28/23 11:16 STATUS: RAQUEL REQ #: [id number] VERONICA: 11/27/23 10:[address]: Kwadwo Morris DEPT: IMMUNOHISTOCHEMISTRY RECD BY: Selena Montes ENTERED: 11/28/23 11:16 SP TYPE: IMMUNO OTHR DR: Dr. Hernandez Mcqueen MD Tissues: Gastric mucous membrane Procedures: H Pylori (initial) Comments: @ Specimen number changed from [id number] to [id number] @ on 11/28/23 at 1128 by IRAIDA. PHYSICIAN & INSTITUTION [place] [id number] SPECIMEN INFORMATION: Tissue Source: Gastric Antrum Clinical Info: Colonoscopy, EGD with biopsy Specimen Number: [id number] CPT code: 21078 METHODOLOGY: Deparaffinized sections of prefer/formalin-fixed tissue or PAP/DQ stained slides are incubated with monoclonal/polyclonal antibodies/oligonucleotide probes. Localization is made via biotin free immunoperoxidase method. Appropriate controls are performed and reacted as expected. Results on target cell population are indicated in the following table: RESULTS: ANTIBODY / CLONE RESULT H Pylori (polyclonal) negative These tests were developed and their performance characteristics determined by [facility]. They may not have been cleared or approved by the U.S. Food and Drug Administration. The FDA has determined that such clearance or approval is not necessary. The above immunohistochemical/dualISH markers are ordered and reviewed by the Pathologist. INTERPRETATION: Gastric antrum, biopsy: Negative for Helicobacter pylori organisms. AM:freda 11/29/2023
--- NOTE | 2023-11-27 11:17 | OP.EGD_ITS ---
Patient Name: Domenica Lezama Procedure Date: 11/27/2023 10:30 AM Date of : 1950 Age: 73 Procedure: Upper GI endoscopy Indications: Iron deficiency anemia Providers: DO Lissa Rivera MD: Hernandez Mcqueen MD Medicines: Monitored Anesthesia Care Patient Profile: This is a 73 year old female. Refer to note in patient chart for documentation of history and physical. Patient has symptoms of chronic epigastric abdominal pain and chronic nausea. Complications: No immediate complications. Procedure: Pre-Anesthesia Assessment: - Prior to the procedure, a History and Physical was performed, and patient medications and allergies were reviewed. The patient is competent. The risks and benefits of the procedure and the sedation options and risks were discussed with the patient. All questions were answered and informed consent was obtained. Patient identification and proposed procedure were verified by the physician in the pre-procedure area. Mental Status Examination: alert and oriented. Airway Examination: normal oropharyngeal airway and neck mobility. Respiratory Examination: clear to auscultation. CV Examination: normal. Prophylactic Antibiotics: The patient does not require prophylactic antibiotics. Prior Anticoagulants: The patient has taken no anticoagulant or antiplatelet agents. ASA Grade Assessment: III - A patient with severe systemic disease. After reviewing the risks and benefits, the patient was deemed in satisfactory condition to undergo the procedure. The anesthesia plan was to use monitored anesthesia care (MAC). Immediately prior to administration of medications, the patient was re-assessed for adequacy to receive sedatives. The heart rate, respiratory rate, oxygen saturations, blood pressure, adequacy of pulmonary ventilation, and response to care were monitored throughout the procedure. The physical status of the patient was re-assessed after the procedure. After obtaining informed consent, the endoscope was passed under direct vision. Throughout the procedure, the patient's blood pressure, pulse, and oxygen saturations were monitored continuously. The Colonoscope was introduced through the mouth, and advanced to the second part of duodenum. The upper GI endoscopy was accomplished without difficulty. The patient tolerated the procedure well. Scope In: 10:53:21 AM Scope Out: 10:58:10 AM Total Procedure Duration Time 0 hours 4 minutes 49 seconds Findings: The examined esophagus was normal. A hiatal hernia was present. Patchy mildly erythematous mucosa without bleeding was found in the gastric antrum. Biopsies were taken with a cold forceps for histology. Verification of patient identification for the specimen was done. Estimated blood loss was minimal. Biopsies were taken with a cold forceps for Helicobacter pylori testing. Verification of patient identification for the specimen was done. Estimated blood loss was minimal. No gross lesions were noted in the second portion of the duodenum. One non-bleeding gastric ulcer with no stigmata of bleeding was found on the greater curvature of the stomach. The lesion was 6 mm in largest dimension. Impression: - Normal esophagus. - Hiatal hernia. - Erythematous mucosa in the antrum. Biopsied. - No gross lesions in the second portion of the duodenum. Recommendation: - Discharge patient to home. - Resume previous diet. - Continue present medications. - Await pathology results. Procedure Code(s): --- Professional --- 11375, Esophagogastroduodenoscopy, flexible, transoral; with biopsy, single or multiple CPT copyright 2021 [employer]. All rights reserved. The codes documented in this report are preliminary and upon medical biller/coder review may be revised to meet current compliance requirements. Kwadwo Morris DO 11/27/2023 11:17:02 AM This report has been signed electronically. Number of Addenda: 0 Note Initiated On: 11/27/2023 10:30 AM
--- NOTE | 2023-11-27 11:17 | OP.CCLET_ITS ---
11/27/2023 Hernandez Mcqueen MD [address] [place] [address] Re : Upper GI endoscopy procedure for Domenicabrielle Lezama Dear Dr. Mcqueen This procedure was performed on Monday, November 27, 2023. My impressions and recommendations are as follows: Impressions : - Normal esophagus. - Hiatal hernia. - Erythematous mucosa in the antrum. Biopsied. - No gross lesions in the second portion of the duodenum. Recommendations : - Discharge patient to home. - Resume previous diet. - Continue present medications. - Await pathology results. My findings are described in the full procedure note, which is enclosed. If I can be of further assistance, please feel free to contact me at . Sincerely, Kwadwo Morris, 11/27/2023 11:17:02 AM This report has been signed electronically.
--- NOTE | 2023-11-27 11:21 | OP.COLON_ITS ---
Patient Name: Domenica Lezama Procedure Date: 11/27/2023 10:58 AM Date of : 1950 Age: 73 Procedure: Colonoscopy Indications: Iron deficiency anemia Providers: Kwadwo Morris DO Referring MD: Hernandez Mcqueen MD Medicines: Monitored Anesthesia Care Patient Profile: This is a 73 year old female. Refer to note in patient chart for documentation of history and physical. Patient has symptoms of chronic epigastric abdominal pain and chronic nausea. Last Colonoscopy: date unknown. Unable to locate last colonoscopy report. Complications: No immediate complications. Procedure: Pre-Anesthesia Assessment: - Prior to the procedure, a History and Physical was performed, and patient medications and allergies were reviewed. The patient is competent. The risks and benefits of the procedure and the sedation options and risks were discussed with the patient. All questions were answered and informed consent was obtained. Patient identification and proposed procedure were verified by the physician in the pre-procedure area. Mental Status Examination: alert and oriented. Airway Examination: normal oropharyngeal airway and neck mobility. Respiratory Examination: clear to auscultation. CV Examination: normal. Prophylactic Antibiotics: The patient does not require prophylactic antibiotics. Prior Anticoagulants: The patient has taken no anticoagulant or antiplatelet agents. ASA Grade Assessment: III - A patient with severe systemic disease. After reviewing the risks and benefits, the patient was deemed in satisfactory condition to undergo the procedure. The anesthesia plan was to use monitored anesthesia care (MAC). Immediately prior to administration of medications, the patient was re-assessed for adequacy to receive sedatives. The heart rate, respiratory rate, oxygen saturations, blood pressure, adequacy of pulmonary ventilation, and response to care were monitored throughout the procedure. The physical status of the patient was re-assessed after the procedure. After I obtained informed consent, the scope was passed under direct vision. Throughout the procedure, the patient's blood pressure, pulse, and oxygen saturations were monitored continuously. The Colonoscope was introduced through the sigmoid colostomy and advanced to the cecum, identified by appendiceal orifice and ileocecal valve. The colonoscopy was performed without difficulty. The patient tolerated the procedure well. The quality of the bowel preparation was adequate. The ileocecal valve, appendiceal orifice, and rectum were photographed. Scope In: 11:00:13 AM Scope Withdrawal Time 0 hours 6 minutes 35 seconds Scope Out: 11:09:06 AM Total Procedure Duration Time 0 hours 8 minutes 53 seconds Findings: The perianal and digital rectal examinations were normal. An area of mildly congested mucosa was found in the entire colon. Stool was found in the transverse colon and in the cecum. The exam was otherwise without abnormality. Impression: - Congested mucosa in the entire examined colon. - Stool in the transverse colon and in the cecum. - The examination was otherwise normal. - No specimens collected. Recommendation: - Discharge patient to home. - Resume previous diet today. - Continue present medications. - Repeat colonoscopy in 5 years for surveillance. Procedure Code(s): --- Professional --- 58780, Colonoscopy, flexible; diagnostic, including collection of specimen(s) by brushing or washing, when performed (separate procedure) CPT copyright 2021 [employer]. All rights reserved. The codes documented in this report are preliminary and upon tier truck driver review may be revised to meet current compliance requirements. Kwadwo Morris DO 11/27/2023 11:20:46 AM This report has been signed electronically. Number of Addenda: 0 Note Initiated On: 11/27/2023 10:58 AM
--- NOTE | 2023-11-27 11:21 | OP.CCLET_ITS ---
11/27/2023 Hernandez Mcqueen MD [address] [place] [id number] Re : Colonoscopy procedure for Domenica Teja Dear Dr. Mcqueen This procedure was performed on Monday, November 27, 2023. My impressions and recommendations are as follows: Impressions : - Congested mucosa in the entire examined colon. - Stool in the transverse colon and in the cecum. - The examination was otherwise normal. - No specimens collected. Recommendations : - Discharge patient to home. - Resume previous diet today. - Continue present medications. - Repeat colonoscopy in 5 years for surveillance. My findings are described in the full procedure note, which is enclosed. If I can be of further assistance, please feel free to contact me at . Sincerely, Kwadwo Friend, 11/27/2023 11:20:46 AM This report has been signed electronically.
== END 2023-11-27 12:17 | disposition home or self-care (01) ==
LOC: EN 08:31 → AC 08:34
PROVIDERS: PCP Family Medicine; Referring Provider Family Medicine; Visit Provider Internal Medicine Gastroenterology
PROC: 0DJD8ZZ Inspection of Lower Intestinal Tract, Via Natural or Artificial Opening Endoscopic (ICD-10-PCS; CPT 45378; principal; 2023-11-27 09:55)
DX: K25.9 Gastric ulcer, unspecified as acute or chronic, without hemorrhage or perforation (principal); C34.10 Malignant neoplasm of upper lobe, unspecified bronchus or lung; Z93.3 Colostomy status; J44.9 Chronic obstructive pulmonary disease, unspecified; K44.9 Diaphragmatic hernia without obstruction or gangrene; K31.89 Other diseases of stomach and duodenum; D50.9 Iron deficiency anemia, unspecified; I10 Essential (primary) hypertension; E78.00 Pure hypercholesterolemia, unspecified; K21.9 Gastro-esophageal reflux disease without esophagitis; Z79.51 Long term (current) use of inhaled steroids; Z79.899 Other long term (current) drug therapy; Z86.16 Personal history of COVID-19; Z87.891 Personal history of nicotine dependence
CPT/HCPCS: 45378; 43239; 88305; 88342; J7120; J2405

== ENCOUNTER 2023-11-29 20:51 | Emergency (ER) | payer MEDICARE, MEDICAID, SELFPAY ==
[2023-11-29 20:52] VITALS: BP 157/110; PULSE 104; RESP 18; TEMP 36.3; O2SAT 94; BMI 24.5
--- OUTSIDE RECORDS SUMMARY | 2023-11-29 21:25 | XMS RPT_ITS | CCD ---
Author Name Unknown Address [address] [place] [address] Organization [facility] Care Team Providers Care Instructor Substitute Cosmetology Name Role Phone Salo Serrano Unavailable Hernandez [...] Sims Attending Laila HINSON MD, LESLIE [facility] Unavailable Allergies Allergy Classification Reported Allergen(s) Allergy Type Date of Onset Reaction(s) Facility (6 sources) watermelon preparation Drug Allergy 02-12-2018 [facility] Work Phone: Medications Current Medications Medication Drug Class(es) Dates Sig (Normalized) Sig (Original) 8 hr acetaminophen 650 mg extended release oral tablet (1 source) Start: 12-13-2022 End: 12-16-2022 acetaminophen 650 mg oral tablet, extended release Dose : 650 mg = 1 tab(s), Oral, q8h, PRN as needed for pain, X 3 day(s), # 24 tab(s), 0 Refill(s), 12/16/22 9:18:00 EST, Pharmacy: [facility] 074, 157.5, cm, 12/13/22 6:00:00 [...] Non-Invasive [address] ISI DANGELO MD [facility] 04-10-2023 14:58-0400 Heart rate 85 /min DR ISI DANGELO MD [facility] 04-10-2023 14:58-0400 Respiratory rate 18 /min DR ISI DANGELO MD [facility] 04-10-2023 14:58-0400 Systolic Blood Pressure Non-Invasive [address] ISI DANGELO MD [facility] 04-10-2023 14:57-0400 Diastolic Blood Pressure Non-Invasive [address] ISI DANGELO MD [facility] 04-10-2023 14:57-0400 Heart rate 86 /min DR ISI DANGELO MD [facility] 04-10-2023 14:57-0400 Respiratory rate 22 /min DR ISI DANGELO MD [facility] 04-10-2023 14:57-0400 Systolic Blood Pressure Non-Invasive [address] ISI DANGELO MD [facility] 04-10-2023 14:39-0400 Diastolic Blood Pressure Non-Invasive [address] ISI DANGELO MD [facility] 04-10-2023 14:39-0400 Heart rate 87 /min DR ISI DANGELO MD [facility] 04-10-2023 14:39-0400 Reason For Taking VItal Signs DR ISI DANGELO MD [facility] 04-10-2023 14:39-0400 Respiratory rate 21 /min DR ISI DANGELO MD [facility] 04-10-2023 14:39-0400 Systolic Blood Pressure Non-Invasive [address] ISI DANGELO MD [facility] 04-10-2023 14:30-0400 Heart rate 81 /min DR ISI DANGELO MD [facility] 04-10-2023 14:25-0400 Heart rate 82 /min DR ISI DANGELO MD [facility] 04-10-2023 14:20-0400 Heart rate 84 /min DR ISI DANGELO MD [facility] 04-10-2023 11:41-0400 Blood Pressure Cuff Size DR ISI DANGELO MD [facility] 04-10-2023 11:41-[address] ISI DANGELO MD [facility] 04-10-2023 11:41-[address] ISI DANGELO MD [facility] 04-10-2023 11:41-0400 Body temperature 98.42 [degF] DR ISI DANGELO MD [facility] 04-09-2023 14:50-0400 Body height 157.[address] ISI DANGELO MD [facility] 04-09-2023 14:50-0400 Body weight [address] ISI DANGELO MD [facility] 04-09-2023 14:50-0400 Body weight 25.8 kg/m2 DR ISI DANGELO MD [facility] 12-13-2022 14:39-0500 Heart rate 82 /min IZABEL QUIÑONES MD [facility] 12-13-2022 14:39-0500 Reason For Taking VItal Signs IZABEL QUIÑONES MD [facility] 12-13-2022 14:27-0500 Heart rate 83 /min IZABEL QUIÑONES MD [facility] 12-13-2022 14:27-0500 Reason For Taking VItal Signs IZABEL QUIÑONES MD [facility] 12-13-2022 14:15-0500 Heart rate 83 /min IZABEL QUIÑONES MD [facility] 12-13-2022 14:15-0500 Reason For Taking VItal Signs IZABEL QUIÑONES MD [facility] 12-13-2022 12:30-0500 Diastolic Blood Pressure Non-Invasive 74 1 IZABEL QUIÑONES MD [facility] 12-13-2022 12:30-0500 Mean blood pressure 91 mm[Hg] IZABEL QUIÑONES MD [facility] 12-13-2022 12:30-0500 Systolic Blood Pressure Non-Invasive 136 1 IZABEL QUIÑONES MD [address] [place] [address] 12-13-2022 12:15-0500 Diastolic Blood Pressure Non-Invasive 95 1 IZABEL QUIÑONES MD [address] [place] [address] 12-13-2022 12:15-0500 Mean blood pressure 109 mm[Hg] ZIABEL QUIÑONES MD [address] [place] [address] 12-13-2022 12:15-0500 Systolic Blood Pressure Non-Invasive 146 1 IZABEL QUIÑONES MD [address] [place] [address] 12-13-2022 12:00-0500 Mean blood pressure 97 mm[Hg] IZABEL QUIÑONES MD [address] [place] [address] 12-13-2022 12:00-0500 Systolic Blood Pressure Non-Invasive 154 1 IZABEL QUIÑONES MD [address] [place] [address] 12-13-2022 11:26-0500 Heart rate 72 /min IZABEL QUIÑONES MD [address] [place] [address] 12-13-2022 11:26-0500 Respiratory rate 18 /min IZABEL QUIÑONES MD [facility] 12-13-2022 10:30-0500 Diastolic blood pressure 80 mm[Hg] IZABEL QUIÑONSE MD [address] [place] [address] 12-13-2022 10:30-0500 Mean blood pressure 117 mm[Hg] IZABEL QUIÑONES MD [address] [place] [address] 12-13-2022 10:30-0500 Systolic blood pressure 179 mm[Hg] IZABEL QUIÑONES MD [address] [place] [address] 12-13-2022 10:15-0500 Diastolic blood pressure 79 mm[Hg] IZABEL QUIÑONES MD [facility] 12-13-2022 10:15-0500 Mean blood pressure 114 mm[Hg] IZABEL QUIÑONES MD [facility] 12-13-2022 10:15-0500 Systolic blood pressure 174 mm[Hg] IZABEL QUIÑONES MD [facility] 12-13-2022 10:00-0500 Diastolic blood pressure 77 mm[Hg] IZABEL QUIÑONES MD [facility] 12-13-2022 10:00-0500 Mean blood pressure 115 mm[Hg] IZABEL QUIÑONES MD [facility] 12-13-2022 10:00-0500 Systolic blood pressure 175 mm[Hg] IZABEL QUIÑONES MD [facility] 12-13-2022 09:33-0500 Blood Pressure Location IZABEL QUIÑONES MD [address] [place] [address] 12-13-2022 09:30-0500 Blood Pressure Location IZABEL QUIÑONES MD [facility] 12-13-2022 08:52-0500 Body temperature 97.88 [degF] IZABEL QUIÑONES MD [facility] 12-13-2022 08:52-0500 Respiratory rate 16 /min IZABEL QUIÑONES MD [facility] 12-13-2022 06:00-0500 Blood Pressure Cuff Size IZABEL QUIÑONES MD [facility] 12-13-2022 06:00-0500 Blood Pressure Method IZABEL QUIÑONES MD [facility] 12-13-2022 06:00-0500 Body height 157.5 cm IZABEL QUIÑONES MD [facility] 12-13-2022 06:00-0500 Body temperature 96.08 [degF] IZABEL QUIÑONES MD [facility] 12-13-2022 06:00-0500 Body weight 66.9 kg IZABEL QUIÑONES MD [facility] 12-13-2022 06:00-0500 Heart rate 85 /min IZABEL QUIÑONES MD [address] [place] [address] 12-11-2022 09:21-0500 Blood Pressure Cuff Size IZABEL QUIÑONES MD [address] [place] [address] 12-11-2022 09:21-0500 Blood Pressure Location IZABEL QUIÑONES MD [address] [place] [address] 12-11-2022 09:21-0500 Blood Pressure Method IZABEL QUIÑONES MD [address] [place] [address] 12-11-2022 09:21-0500 Body height 160 cm IZABEL QUIÑONES MD [facility] 12-11-2022 09:21-0500 Body temperature 96.98 [degF] IZABEL QUIÑONES MD [facility] 12-11-2022 09:21-0500 Body weight 66.9 kg IZABEL QUIÑONES MD [address] [place] [address] 12-11-2022 09:21-0500 Diastolic Blood Pressure Non-Invasive 93 1 IZABEL QUIÑONES MD [facility] 12-11-2022 09:21-0500 Heart rate 81 /min IZABEL QUIÑONES MD [address] [place] [address] 12-11-2022 09:21-0500 Systolic Blood Pressure Non-Invasive 157 1 IZABEL QUIÑONES MD [address] [place] [address] 12-11-2022 08:50-0500 SaO2% (BldA) [Mass fraction] 95.2 % IZABEL QUIÑONES MD [facility] Encounters Encounter Date Encounter Type Care Provider Facility Start: 04-10-2023 End: 04-10-[address] ISI DANGELO MD Facility:A Start: 04-10-2023 End: 04-10-[address] ISI DANGELO MD [facility] Start: 03-26-2023 Telephone encounter Leslie Hinson MD Work Phone: Internal Medicine [place] Procedures Date Procedure Procedure Detail Performing Clinician Start: 05-15-2019 Mammography Sarah reyna MA Start: 07-04-2016 Adult depression scr eening assessment Sarah Calhoun MA Start: 03-18-2013 Colonoscopy Sarah reyna MA Abdominal hysterectomy YOVANNY QUIÑONES MD Plan of Treatment Date Care Activity Detail Author Start: 06-28-2023 Influenza vaccination INFLUENZA (Sea son Ended) [facility] Start: 03-18-2023 Colonoscopy COLONOSCOPY [facility] Start: 03-18-2023 COLORECTAL CANCER SCREENING COLORECTAL CANCER SCREENING [facility] Start: 12-20-2022 LIPID SCREEN LIPID SCREEN [facility] Start: 10-28-2022 ADVANCE DIRECTIVE DISCUSSION ADVANCE DIRECTIVE DISCUSSION [facility] Start: 10-28-2022 DEPRESSION ASSESSMENT DEPRESSION ASS ESSMENT [facility] Start: 06-28-2022 Influenza vaccination INFLUENZA (#1) [facility] Start: 03-18-2022 DIABETES SCREEN DIABETES SCREEN [facility] Start: 10-28-2021 ADVANCE DIRECTIVE DISCUSSION ADVANCE DIRECTIVE DISCUSSION [facility] Start: 05-15-2020 Mammography MAMMOGRAM [facility] Start: 05-02-2019 ANNUAL PCP TEAM PROFESSOR OF LITERATURE VICTORIA DISEASE VISIT ANNUAL PCP TEAM CHRONIC DISEASE VISIT [facility] Start: 07-04-2017 Adult depression scr eening assessment DEPRESSION SCREENING [facility] Start: 1999 SHINGRIX VACCINE (1 of 2) SHINGRIX V ACCINE (1 of 2) [facility] Start: 1994 COLOGUARD (FIT-DNA) COLOGUARD (FIT-D NA) [facility] Start: [address] COLONOGRAPHY [facility] Start: 1994 FECAL OCCULT BLOOD FECAL OCCULT BLOO D [facility] Start: 1994 SIGMOIDOSCOPY SIGMOIDOSCOPY [facility] Start: 1979 Zoledronic acid therapy ALPHA- 1 ANTITRYPSIN DEFICIENCY SCREENING [facility] Start: 01-09-1968 Urine microalbumin profile DTAP,TDAP ,TD (1 - Tdap) [facility] Start: 1967 BP CONTROLLED (<130/80) BP CONTROLLE D (<130/80) [facility] Start: 1967 SPIROMETRY SPIROMETRY [facility] Start: 1949 COVID-19 VACCINE (#1) COVID-19 VACCI NE (#1) [facility] Immunizations Immunization Date Immunization Notes Care Provider Caesar noriega 12-13-2022 influenza, high-dose , quadrivalent IZABEL QUIÑONES MD [facility] 07-29-2017 influenza, high dose seasonal, preservative-free Sarah Calhoun MA [facility] 08-10-2016 influenza, high dose seasonal, preservative-free Sarah Calhoun [facility] Work Phone: 03-15-2016 pneumococcal conjuga te vaccine, 13 valent Sarah Calhoun MA [facility] 07-22-2015 influenza, seasonal, injectable Sarah Calhoun MA [facility] 07-28-2014 influenza, seasonal, injectable Sarah Calhoun MA [facility] 02-26-2014 pneumococcal polysaccharide vaccine, 23 valent Sarah Calhoun MA [facility] Payers Date Payer Category Payer Private Health Insurance [id number] 2022 Private Health Insurance [id number] 2022 Private Health Insurance [id number] 2022 Private Health Insurance [id number] 2019 Unknown [facility] ANTHEM MEDIBLUE O [id number] 2019-Present [phone] [address] [place] [address] O [id number] 1950 Unknown [id number] 1949 Unknown [id number] 1949 Unknown [id number] 1949 Unknown [id number] 1950 Unknown [id number] Social History Date Type Detail Facility Start: 11-17-2015 [facility] End: 11-04-2015 History of tobacco use Current smoker [facility] End: 11-04-2015 History of tobacco use Cigarette Smoker [facility] Start: 11-17-2015 Cigarettes smoked cu rrent (pack per day) - Reported 0.3 [facility] Start: 11-17-2015 Tobacco use and exposure Smoke less tobacco non-user [facility] Start: 09-15-2018 Alcohol intake Current non-dr grader meat of alcohol (finding) [facility] Start: 1950 Sex Assigned At Not on file [facility] Start: 12-11-2022 Tobacco smoking status Light t obacco smoker (finding) [facility] Medical Equipment Procedure Code Equipment Code Equipment Origin al Text Equipment Identifier Dates [id number] Implant - [id number] Start: 06-15-2015 Functional Status Date Assessment Result Facility 04-10-2023 Functional Status ID band on, Allergy Band on, Bed in low position, Wheels locked, Upper/Half-Length side-rails up, Safety level maintained [facility] 04-10-2023 Functional Status [facility] 04-10-2023 Functional Status [facility] 04-09-2023 Functional Status Sensory Deficits None A [facility] 12-13-2022 Functional Status Up to chair, Warm blankets [facility] 12-13-2022 Functional Status Lunch Percent 100 [place] 12-13-2022 Functional Status [place] [facility] 12-13-2022 Functional Status Room check performed [facility] 12-11-2022 Functional Status Sensory Deficits None A [facility] Mental Status Date Assessment Result Facility 04-10-2023 Mental Status Oriented x 4 [facility] 04-10-2023 Mental Status [facility] 12-13-2022 Mental Status Oriented x 4, Follows simple commands [facility] Clinical Notes 12-06-2016 to 04-10-2023 Telephone [...] Levi Chadwick/Sex: 1950 Female Med Rec #: [id number] Physician: Financial #: [id number] Pt. Type: O Room/Bed: / Admit/Disch: 04/10/23 11:09:00 - Institution: Allergies identified in patient's electronic medical record at time of printing on 04/10/23 Entry 1 Substance Watermelon Reaction Type Allergy Last Modified By: Jyoti Thomas RN 11/14/22 10:05:05 Case Attendance- CT Entry 1 Entry 2 Entry 3 Case Attendee LIS SWANSON MD, Sheela Montelongo Role Performed Radiologist Procedure Procedure Nurse Microwave Technician Details Time In 04/10/23 13:14:00 04/10/23 13:03:00 [...] for Time Out JARED Atwood, Confirm/obtain preop [employer] antibiotic order., Alcohol based prep dry, Double verification of sterility indicators complete Instrument Sterility Team Members LIS SWANSON MD Verifying Sterility Procedure CT Biopsy Neck (SN) Last Modified By: JARED Atwood 04/10/23 13:15:59 Skin Prep - CT Entry [address] Biopsy Neck (SN) Skin Prep Prep Area Abdomen Side Right By [employer] Prep Agents Chloraprep Hair Removal Method N/A [...] during the perioperative period. Outcomes Met? Yes Instructor Substitute Cosmetology JARED Atwood Completing Procedure Plan Last Modified By: JARED Atwood 04/10/23 13:14:00 Radiology Lines and Procedures- CT Entry 1 Radiology Sedation Case Times Sedation Start Time 04/10/23 13:25:00 Sedation Stop Time 04/10/23 14:29:00 Sedation Total Time 1 hour 5 minutes Radiology - Fluid/Drainage RAD - CT Guidewires, Cath... [place] [employer] Biopsy Needle [id number] Radiology Urinary Catheter Radiology - CT Other Items Trays/Kits Custom Procedure Kit Radiology Contrast Contrast Used? Yes Dose 75 mL Radiology Procedure Site Site/Location l neck Site Condition No complications Dressing Type Bandaids Technologist Notes gel foam used, patient tolerated biopsy , successful x 14 Last Modified By: AJRED Atwood 04/10/23 14:33:22 Transfer Post Procedure- CT [...] At[place] 04/10/23 14:46 Sheela Zhang 04/10/23 15:00 [facility] 04-10-2023 Procedure note Brief IR Post Procedure Note - Outpatient Pre Procedure Dx: Left parotid lesion, non-dx FNA Post Procedure Dx: Same Procedure: 1. CT core biopsy Ramp Service Employee: Steve Needle Loom Operator Helper: None Anesthesia: Local, moderate sedation EBL: Minimal [...] MD Vascular & Interventional Rad[facility] ([facility]) [email or web address] [email or web address] Pager: [phone] [facility] Dept (20/05): [phone] [facility] [phone] [facility] Digitally Signed by LIS SWANSON MD on 04/10/2023 03:26 PM [facility] 04-10-[address] Procedure Record Summary Primary Physician: Finalized Date/Time: 04/10/23 15:00:07 Pt. Name: JUAN HAWKINS Levi Chadwick/Sex: 1950 Female Med Rec #: [id number] Physician: Financial #: [id number] Pt. Type: O Room/Bed: / Admit/Disch: 04/10/23 11:09:00 - Institution: Allergies identified in patient's electronic medical record at time of printing on 04/10/23 Entry 1 Substance Watermelon Reaction Type Allergy Last Modified By: Jyoti Thomas RN 11/14/22 10:05:05 Case Attendance- CT Entry 1 Entry 2 Entry 3 Case Attendee LIS SWANSON MD, RN Sheela Alcantara Role Performed Radiologist Procedure Procedure Nurse Microwave Technician Details Time In 04/10/23 13:14:00 04/10/23 13:03:00 04/10/23 13:03:00 Time Out 04/10/23 14:29:00 04/10/23 14:32:00 04/10/23 14:33:00 Procedure/Preference CT Biopsy Neck (SN) CT Biopsy Neck (SN) CT Biopsy Neck (SN) Card Last Modified By: JAERD Atwood RN Jennifer M Fichter, RN Jennifer [...] for Time Out JARED Atwood, Confirm/obtain preop [employer] antibiotic order., Alcohol based prep dry, Double verification of sterility indicators complete Instrument Sterility Team Members LIS SWANSON MD Verifying Sterility Procedure CT Biopsy Neck (SN) Last Modified By: JARED Atwood 04/10/23 13:15:59 Skin Prep - CT Entry [address] Biopsy Neck (SN) Skin Prep Prep Area Abdomen Side Right By [employer] Prep Agents Chloraprep Hair Removal Method N/A [...] during the perioperative period. Outcomes Met? Yes Instructor Substitute Cosmetology JARED Atwood Completing Procedure Plan Last Modified By: JARED Atwood 04/10/23 13:14:00 Radiology Lines and Procedures- CT Entry 1 Radiology Sedation Case Times Sedation Start Time 04/10/23 13:25:00 Sedation Stop Time 04/10/23 14:29:00 Sedation Total Time 1 hour 5 minutes Radiology - Fluid/Drainage RAD - CT Guidewires, Cath... [place] [employer] Biopsy Needle [id number] Radiology Urinary Catheter Radiology - CT Other [...] Atwood 04/10/23 14:46 Sheela Zhang 04/10/23 15:00 [facility] 04-10-2023 Hospital Discharg e instructions Patient Education 04/10/2023 12:44:59 Radiology- Procedure/Biopsy 02/10/2020 (CUSTOM) [facility] Radiology Procedure/Biopsy Discharge Instructions Interventional Radiology [facility] [address] [address] Today, you had a biopsy of your [...] 1 to 2 days following the procedure. Bsmz-oqp-hgdcqcn pain medication should be used for pain [...] below: For the first 24 hours, call [phone] After 24 hours, contact the physician who [...] until you are awake and alert. Take txye-iuj-kfjtogu and prescription medicines only as told by [...] 08/04/2014 Document Revised: 09/26/2018 Document Reviewed: 02/02/2017 [employer] Patient Education 2020 [employer]. Follow Up Care 03/27/2023 08:25:58 With:ISI DANGELO MD Address: JULI Richards [address] [place] [address] [place] [address]- When: Unknown Comments:Follow-up as scheduled [facility] 04-10-2023 Summary of episod e note Discharge Instructions Thank you for allowing [place] to assist you with your healthcare needs. The following is important discharge information regarding your hospital visit. What to do next Follow Up Appointments Follow Up with ISI DANGELO MD When Why: Follow-up as scheduled Where: JULI [facility] [address] [facility] [place] [address]- Allergies Watermelon (Hives) Medications Please ask your [...] medication providers or retail pharmacies. Education Materials [facility] Radiology Procedure/Biopsy Discharge Instructions Interventional Radiology [facility] [address] [place] [address] Today, you had a biopsy of your [...] 1 to 2 days following the procedure. Jced-xaq-qfiacyh pain medication should be used for pain [...] below: For the first 24 hours, call [phone] After 24 hours, contact the physician who [...] until you are awake and alert. Take uywf-vyr-gxcjdlz and prescription medicines only as told by [...] 08/04/2014 Document Revised: 09/26/2018 Document Reviewed: 02/02/2017 [employer] Patient Education 2020 Lookwider. Additional Information VACCINATE! IT SAVES LIVES! Members of the community who have not yet received the COVID-19 vaccine and would like to receive it can visit one of [facility] vaccine clinics. There are many vaccine clinic locations within the [facility]. For locations and available times, please visit https://gettheshot.coronavirus.o hio.gov/. It is important to note that some COVID mobile vaccine clinics are held outdoors and may be canceled in rainy or stormy conditions. To learn more about pediatric vaccinations (ages 5-11), we invite you to visit the [facility] webpage. https://www.[facility].org/p ages/0536-Ibutr-Puxjnihgmmj-Freq mpjads-Ljjrt-Gvnuajhtj.html To learn more about the COVID-19 vaccine, we invite you to visit the CDC website for a list of frequently asked questions.https://www.cdc.gov/co ronavirus/2019-ncov/vaccines/faq .html [facility] Patient Portal Access Instructions: Stay connected with your healthcare team and access your personal medical information anytime with the [facility] Patient Portal. Please follow the directions below to create your [facility] account: 1.Access the email account you provided upon registration to the hospital/physician office.2.Look for an invitation email from [facility].3.Open the email and access the invitation link: Accept Invitation to [facility].4.Fill in the required mar to create your account. To access your account, visit [email or web address]. Click the blue button labeled Access Patient [...] you will allow to register on the [facility] Patient Portal for access to your information. You can also access the [facility] Patient Portal on the [place] [facility] lisa. Simply click on Patient Portal and then log into your account. If you would like to receive a full copy of your medical records, please contact the [facility] Medical Records Department by calling [phone], Saturday through Saturday between 8 a.m. and [...] Call your local pharmacy or go to http://bit.Pins/1O8En1s to find one close to you.3.Make use of household items: Use cat litter or old coffee grounds to dispose medications if other options are not available. Mix your drugs with these household products, seal them in an airtight container and throw it into the garbage. Call [facility]: [phone] to be sure your drugs can be [...] aware that I should contact my doctor. Patient/Supervisor Forming Department Signature: Date/Time: Relationship to Patient: Witness Name/Signature: Date/Time: [facility] 03-26-2023 Miscellaneous Notes Rox, received an H&P request for an order for a biopsy. Advised that Patient is has not been seen at the [facility] since 2018. She is not a Patient of Yany Mcdaniels/[facility] will contact ordering Doctor. Era Guevara LPN documented in this encounter [facility] 12-20-2022 Note ORIGINAL PROCEDURE: DOS: 11/30/2022 [...] Sign Date: 12/20/2022 1:05:37 AM [facility] 12-13-2022 Note Discharge Instructions Thank you for [...] 10:30 AM EST JESUS MANUEL BLOOM APRN-ARELIS [facility] Cardiothoracic Surgery Follow Up Appointments Follow Up with JESUS MANUEL BLOOM APRN-ARELIS When 12/27/2022 10:30 AM EST Where: [address] [facility] [place] [address]- Follow Up with LESLIE HINSON When Within 1-2 days Where: [facility] [address] [place] [address]- [phone] Business (1) The Following Activity and Diet [...] for pain Duration: 3 Days Pickup at [facility] Unchanged albuterol (Albuterol (Eqv-Proventil [...] by mouth Once a day Pharmacy Information [facility] 074: [address] [place], [place] [id number] [phone] What How Much When Comments Stop Taking [...] and skin patches. Some may be available rctf-xhe-szjhmeg and others require a prescription. Antidepressant medicine [...] Document Reviewed: 01/22/2013 ExitCare Patient Information 2015 [employer]. This information is not intended to replace [...] and water are not available, use hand stream control officer. ? Change your dressing as told by [...] until your health care provider approves. Take zwlw-soa-icwupvr and prescription medicines only as told by [...] 05/03/2006 Document Revised: 09/26/2018 Document Reviewed: 07/26/2017 ElseiSOCO Patient Education 2020 Look[employer]ider. Additional Information VACCINATE! IT SAVES LIVES! Members of the community who have not yet received the COVID-19 vaccine and would like to receive it can visit one of [facility] vaccine clinics. There are many vaccine clinic locations within the [facility]. For locations and available times, please visit [email or web address].coronavirus.o mao.gov/. It is important to note that some COVID mobile vaccine clinics are held outdoors and may be canceled in rainy or stormy conditions. To learn more about pediatric vaccinations (ages 5-11), we invite you to visit the [facility] webpage. https://www.[email or web address].[email or web address]/p [email or web address]-Agfuw-Yaaskdnegbp-Freq sgfyol-Xxmar-Mdlxiweuz.html To learn more about the COVID-19 vaccine, we invite you to visit the CDC website for a list of frequently asked questions. https://www.cdc.gov/coronavirus/ 2019-ncov/vaccines/faq.html [place] [facility] Patient Portal Access Instructions: Stay connected with your healthcare team and access your personal medical information anytime with the [facility] Patient Portal.If you would like a full copy of your medical records, please contact the [facility] Medical Records Department, Saturday through Saturday between 8a.m. and 4:30p.m. Please follow the directions below to access the portal: 1.Access the email account you provided upon registration to the [facility].2.Look for an invitation email from [facility].3.Open the email and access the invitation link: Accept Invitation to [facility].Fill in the required mar to create your account. Sign into [email or web address] with your username and password that you [...] you will allow to register on the [facility] Patient Portal for access to your information. You can also access the [facility] Patient Portal on the Mak[employer] lisa. Simply click on Health Records under Health Data and then click on the [employer] logo. HOW TO SAFELY DISPOSE OF PRESCRIPTION [...] Call your local pharmacy or go to [email or web address] to find one close to you.3.Make use of household items: Use cat litter or old coffee grounds to dispose medications if other options are not available. Mix your drugs with these household products, seal them in an airtight container and throw it into the garbage. Call [facility]: [phone] to be sure your drugs can be [...] aware that I should contact my doctor. Patient/Supervisor Forming Department Signature: Date/Time: Relationship to Patient: Witness Name/Signature: Date/Time: [facility] 12-13-2022 Hospital Discharg e instructions Patient [...] and skin patches. Some may be available uypb-vlq-pmehkeh and others require a prescription. Antidepressant medicine [...] Document Reviewed: 01/22/2013 ExitCare Patient Information 2015 [employer]. This information is not intended to replace [...] and water are not available, use hand stream control officer. ?Change your dressing as told by your [...] until your health care provider approves. Take szba-kqf-xaeimuo and prescription medicines only as told by [...] 05/03/2006 Document Revised: 09/26/2018 Document Reviewed: 07/26/2017 [employer] Patient Education [employer]. Follow Up Care 11/29/2022 16:22:14 With:LESLIE HINSON Address: [facility] [address] [place] [address] [phone] Business (1) When:1-2 days With:JESUS MANUEL BLOOM [facility] Address: [address] [place] [address] [place] [address]- When:12/27/2022 10:30:00 [facility] 12-13-2022 Note Date of Service 12/13/2022 [...] Where: [address] [facility] Cardiothoracic Surgery [place] [id number]- Discharge Diet Discharge Diet - Ordered -- [...] by NAOMI MICHAELS on 12/13/2022 03:23 PM [facility] 12-13-2022 Note ORIGINAL EXAMINATION: ONE XRAY [...] Sign Date: 12/13/2022 9:23:26 AM Ordering Provider: [facility] 12-13-2022 Note ORIGINAL EXAMINATION: ONE XRAY [...] Sign Date: 12/13/2022 9:23:26 AM Ordering Provider: [facility] 12-13-2022 Anesthesiology Consult note Patient: JUAN [...] list: Medical Aortic stenosis / SNOMED CT 702436388 / Confirmed Asthma / SNOMED CT 867628400 / Confirmed High blood pressure / SNOMED CT 46650773 / Confirmed Hypercholesterolemia / SNOMED CT 09020752 / Confirmed Cancer of right lung / SNOMED CT 275111934 / Confirmed Tobacco abuse / SNOMED CT 519714592 / Confirmed, Active Problems (13) Aortic stenosis Arthritis Asthma Back pain Cancer of right lung Constipation Glasses High blood pressure Hypercholesterolemia Migraine Palpitations Presence of dental prosthetic device Tobacco abuse Histories Past Medical History: Active High blood pressure (73539518) Hypercholesterolemia (93849161) Family History: Cancer Father HTN - Hypertension Father Pacemaker catheter, device Brother Alzheimer disease Mother Procedure history: Appendectomy (809514616). Abdominal hysterectomy partial (778000428). Comments: 12/11/2022 9:29 JARED Cintron partial Amputation of finger of right hand (3188946191). Dilation and curettage (11204093). Cataract extraction (58456374). Comments: 12/11/2022 9:28 JARED Cintron bilateral Social [...] EST Quincy BERMUDEZ . 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 (ASA) physical status classification: [...] NELSON CORONEL DO on 12/13/2022 05:56 AM [facility] 06-20-2022 Note Patient Outreach (NE TNAV) JUAN HAWKINS ([id number]) 1950 F [facility] Date Time Provider Department 06/20/22 [...] Care Gap or Scheduling/Wellness visits Payer: Payor: Viddyad AND BLUE SHIELD / Plan: Panopto HMO / Product Type: HMO / Care [...] Visit: Population Health Navigation Outreach [3910] Cmt: [place] Lacy Gaps Prescriptions as of 06/20/2022 - [...] by KIAN POPULATION BLUE NAVIGATORSARAH on 06/20/22 [facility] 06-20-2022 Note HNO ID: [id number] Author: Sarah Calhoun MA Service: ? Author Type: Grinder Set Up Operator Universal Type: Progress Notes Filed: 06/20/2022 4:15 PM [...] Care Gap or Scheduling/Wellness visits Payer: Payor: RingTu / Plan: ANTHEM MEDIBLUE HMO / Product [...] Calhoun MA June 20, 2022 8:42 AM [facility] 06-20-2022 History of Presen t illness [...] Care Gap or Scheduling/Wellness visits Payer: Payor: RONEYRyan / Plan: ANTHEM MEDIBLUE HMO / Product [...] 2022 8:42 AM documented in this encounter [facility] documented as of this encounter (statuses as of 06/20/2022) [facility]02-09-2017 History of Past illness Narrative* Problem [...] of this encounter (statuses as of 03/26/2023) [facility] Future App[facility]ments [facility] Evaluation + Plan note Future Appointments Appointment Date:12/27/2022 10:30:00 AM Scheduled Provider:JESUS MANUEL BLOOM Location:[facility] Appointment Type:CTS OV Post Op [facility] Hospital course Narrative No data available for this section [facility] Hospital Discharge instructions No data available for this section [facility] Progress note No data available for this section [facility] Advance Directives No Advanced Directives Records FoundDocuments on File Type Date Recorded Patient Supervisor Forming Department Expl anation Advance Directive(s) 08/14/2016 10:25 AM [...] or prosecute any alcohol or drug abuse patient.[facility] the event this information is protected by the Federal Confidentiality of Alcohol and Drug Abuse Patient Records regulations: The Federal rules restrict any use of the information to criminally investigate or prosecute any alcohol or drug abuse patient.[facility] Reason for Visit (unrecogniz ed section and content) Reason Comments Orders Care Teams (unrecognized sec tion and content) Instructor Substitute Cosmetology Relationship Specialty Start Date End Date ZachSalo [address] [address] Physician Cardiology 03/24/19 Hernandez Lee [address] [facility] [address] [place] [address] Physician Cardiology 03/24/19 Care Team (unrecognized sect ion and content) Care Team Personnel Name: LESLIE HINSON MD Member Role: Primary Care Physician Address: Address: [facility] [address] [place] [address]- [place] Name: SHARLENE ABDUL MD Member Role: Oncologist Address: Address: [facility] [place] [address]- [place] Name: OLENA DIAZ DO Member Role: Radiation Oncologist Address: Address: [address] [facility] [place] [address]- Care Team Related Persons Name: BAHMAN HAWKINS Address: Home [address] [place], [place] [phone] Care Team Personnel Name: LESLIE HINSON MD Member Role: Primary Care Physician Address: Address: [address] [place] [address]- Name: SHARLENE ABDUL MD Member Role: Oncologist Address: Address: [facility] [place] [address]- Name: OLENA DIAZ DO Member Role: Radiation Oncologist Address: Address: [facility] [place] [address]- Care Team Related Persons Name: BAHMAN HAWKINS Address: Home [address] [place], [place] [id number] Care Team Personnel Name: LESLIE HINSON MD Member Role: Primary Care Physician Address: Address: [address] [place] [address]- Name: SHARLENE ABDUL MD Member Role: Oncologist Address: Address: [facility] [place] [address]- Name: OLENA DIAZ DO Member Role: Radiation Oncologist Address: Address: [facility] [place] [address]- Care Team Related Persons Name: BAHMAN HAWKINS Address: Home [address] [place], [place] [id number] INFORMATION SOURCE (unrecogn ized section and content) DATE CREATED AUTHOR AUTHOR'S ORGANIZ ATION 04/16/2023 [facility] ([place]) FOR RECORDS PERTAINING TO PATIENTS WHO ARE [...] BE BASED ON THE PRIMARY CLINICAL RECORDS. [facility] [employer] provides no warranty or guarantee of the accuracy or completeness of information in this document.
--- NOTE | 2023-11-29 21:29 | EX.ED.DYSGE1 ---
HPI History of Present Illness Chief Complaint: Wound Informant: patient Narrative Narrative: Patient presents with her ostomy out. She cannot get it back in. This was placed in June of this year. She reports having about 25% of her bowel removed because it . She states the ostomy is come out multiple times. Dr. Dale got it to go back in once. She then showed the patient how to do it. Patient states she does not even feel it when the ostomy comes out. She noticed it was in the bag today. She got it most of the way back in but there is still about 3 inches that are out. She states it does not hurt. She just could not get it to go back in. She tried ice. She tried placing sugar around it. None of these helped. But she has no nausea vomiting fevers or chills. She does not feel ill. Patient states she does have COPD. She has a dry cough that is chronic. She normally holds her ostomy when she coughs. She states she may not have done that once or twice. But her cough is not any different than normal. [facility] Medical History Alopecia Arthritis Asthma Back pain Benign neoplasm of colon Cancer Cancer related pain Cardiology follow-up encounter Chronic constipation Contact with and (suspected) exposure to other viral communicable diseases COPD (chronic obstructive pulmonary disease) COVID-19 Easy bruising Encounter for education Essential hypertension Fatigue Former smoker Gastric reflux Generalized weakness High cholesterol History of echocardiogram History of edema History of irregular heartbeat History of stress test Hyperlipidemia Hypertension Hypokalemia Mild aortic stenosis Nicotine dependence Pneumonia Restless legs Shortness of breath on exertion Wears dentures Wears glasses Home Medications atorvastatin 10 mg tablet 10 mg PO QHS CHOLESTEROL #90 tabs 04/17/21 [Rx Last Taken 08/20/23] montelukast 10 mg tablet 10 mg PO DAILY ALLERGIES 08/21/22 [History Last Taken 08/21/23] lisinopril 20 mg tablet 20 mg PO DAILY BLOOD PRESSURE 12/06/22 [History Last Taken 08/21/23] Hair prostethesis #1 ea 01/17/23 [Rx Last Taken Unknown] gabapentin 300 mg capsule 300 mg PO QHS NERVE PAIN 03/18/23 [History Last Taken 08/20/23] colestipol 1 gram tablet 1 g PO BID CHOLESTEROL #60 tabs 04/16/23 [Rx Last Taken 08/21/23] pantoprazole 40 mg tablet,delayed release 40 mg PO DAILY ACID REFLUX #30 tabs 07/25/23 [Rx Last Taken 08/21/23] dicyclomine 10 mg capsule 10 mg PO BID IRRITABLE BOWELS 08/21/23 [History Last Taken 08/21/23] lidocaine-prilocaine 2.5 %-2.5 % topical cream 1 applic topical ONCE PRN PORT ACCESS 30 days #30 grams 08/21/23 [Rx Last Taken Unknown] mirtazapine 15 mg tablet 15 mg PO QHS DEPRESSION 08/21/23 [History Last Taken 08/20/23] ondansetron HCl 4 mg tablet 4 mg PO TID PRN NAUSEA/VOMITING 08/21/23 [History Last Taken Unknown] albuterol sulfate 90 mcg/actuation aerosol inhaler 2 puff inhalation Q4H PRN SHORTNESS OF BREATH/WHEEZING #8.5 grams 11/20/23 [Rx Last Taken Unknown] budesonide-formoterol HFA 160 mcg-4.5 mcg/actuation aerosol inhaler (Symbicort) 2 puff inhalation BID COPD #3 device 11/20/23 [Rx Last Taken Unknown] prochlorperazine maleate 5 mg tablet 5 mg PO Q6H PRN nausea and vomiting 11/20/23 [History Last Taken Unknown] Allergy/AdvReac Type Severity Reaction Status Date / Time watermelon Allergy Intermediate Hives Verified 11/29/23 20:52 Family History Father Cancer spinal Mother Alzheimer's disease Brother Pacemaker Surgical History History of amputation of finger of right hand History of appendectomy History of breast surgery History of cataract extraction History of creation of ostomy History of cystoscopy History of D&C History of hysterectomy History of toe surgery History of tonsillectomy Hx of colonoscopy Status post Eleno procedure Social History household members: spouse pets and animals: Yes (dogs) Smoking Status: Former smoker how long ago did patient quit smokin alcohol intake: former substance use type: does not use ROS ROS ED ROS Narrative A complete review of systems was performed and is negative except as documented in the history of present illness. Some specific details below. Constitutional: No recent fevers or chills. ENT: No GERD symptoms. No vomiting. CV: No chest pain or palpitations. Respiratory: No dyspnea. No hemoptysis. No difficulty taking breaths. GI: Please see history of present illness. No pain. No change in bowel habits. Her ostomy has been putting out normally. : No frequency dysuria or hematuria. Musculoskeletal: No recent trauma. No pains. Skin: No rash. Nondiaphoretic. Neuro: No weakness or numbness. Endocrine: No polyuria or polydipsia. EXAM Physical Exam Narrative Exam Narrative: General: Patient awake alert no acute distress. She is actually laughing on the bed. HEENT shows no trauma. Mucous membranes are moist. Neck is supple. Heart is regular. Normal pulses. Lungs are clear bilaterally. Occasional dry cough. Normal saturation 94% room air. Abdomen is actually benign nondistended with good bowel sounds. Her ostomy is 3 to 4 inches out. It is mildly edematous but it is good pink color. There is no tenderness anywhere near the area. Const Vital Signs: 11/29/23 20:52 Temperature 97.3 F L Temperature Source Temporal Pulse Rate 104 H Respiratory Rate 18 Blood Pressure 157/110 H Blood Pressure Mean 125 Pulse Ox 94 Oxygen Delivery Method Room Air MDM MDM MDM Narrative Medical decision making narrative: Procedure: Reduction of ostomy: I spent some time in the room. We used circumferential pressure just gently squeezing the tissue to try to decrease edema. We were then able to very slowly reduce it. We could serial the outer ring around the skin. It then took a while to reduce through the abdominal wall. But then finally it reduced rather quickly. This did not hurt. Patient is comfortable. Is now flush with the skin. You can still see a little edema though. I explained to the patient she should hold the area if she coughs. We will recheck her here. Patient has been here couple hours. She is not having any issues. She has a little bit of blood at the ostomy but she states that is pretty normal for her. She has been having that off and on for quite some time. But she states there is no pain. She states she does have an appointment coming up with Dr. Dale soon but does not know exactly when it is. She states there has been fullness around the ostomy. It is almost like some mild herniation deep in. But she states it does not hurt. But that has been there for a month or more. She states it comes out very frequently. Normally she can get it back in and this was just more difficult. But she feels back to normal. I explained that it is possible she may need revision of this. That does happen occasionally. She should return if she gets pain, poor ostomy output, bleeding, vomiting, fevers or any other concerns. Discharge Plan Triage Chief Complaint: Wound ED Provider: Inderjit Cevallos Dx/Rx/DC Orders Clinical Impression: Colostomy prolapse Instructions: Colostomy: Caring for Your Stoma Prescriptions: No Action gabapentin 300 mg capsule 300 mg PO QHS budesonide-formoterol [Symbicort] 160-4.5 mcg/actuation HFA aerosol inhaler 2 puff inhalation BID Qty: 3 2RF pantoprazole 40 mg tablet,delayed release (DR/EC) 40 mg PO DAILY Qty: 30 0RF lidocaine-prilocaine 2.5-2.5 % cream 1 applic topical ONCE PRN (Reason: PORT ACCESS) 30 Days Qty: 30 2RF prochlorperazine maleate 5 mg tablet 5 mg PO Q6H PRN (Reason: nausea and vomiting) albuterol sulfate 90 mcg/actuation HFA aerosol inhaler 2 puff inhalation Q4H PRN (Reason: SHORTNESS OF BREATH/WHEEZING ) Qty: 8.5 1RF montelukast 10 mg tablet 10 mg PO DAILY lisinopril 20 mg tablet 20 mg PO DAILY dicyclomine 10 mg capsule 10 mg PO BID mirtazapine 15 mg tablet 15 mg PO QHS ondansetron HCl 4 mg tablet 4 mg PO TID PRN (Reason: NAUSEA/VOMITING ) atorvastatin 10 mg tablet 10 mg PO QHS Qty: 90 3RF (DME) Hair prostethesis See Rx Instructions .Route .MEDSUPPLY Qty: 1 0RF Rx Instructions: As directed colestipol 1 gram tablet 1 g PO BID Qty: 60 1RF Primary Care Provider: Hernandez Mcqueen Referrals: Hernandez Mcqueen MD [Primary Care Provider] - Margarita Dale MD [Med Staff - Active Staff] - As soon as possible Disposition Disposition: Home, Self Care
[2023-11-29 23:05] VITALS: BP 129/74; PULSE 71; RESP 16; O2SAT 97
== END 2023-11-29 23:07 | disposition home or self-care (01) ==
PROVIDERS: Emergency Provider Emergency Medicine; PCP Family Medicine; Visit Provider Emergency Medicine
DX: K94.09 Other complications of colostomy (principal); J44.9 Chronic obstructive pulmonary disease, unspecified; Z79.899 Other long term (current) drug therapy; Z79.51 Long term (current) use of inhaled steroids; Z86.16 Personal history of COVID-19; Z87.891 Personal history of nicotine dependence
CPT/HCPCS: 99282

== ENCOUNTER → 2023-12-04 | Outpatient (CLI) | payer MEDICARE, MEDICAID, SELFPAY ==
[2023-12-04 17:33] LABS: Absolute Lymphocyte Count 0.75 X10^3/uL (0.83-4.51); Absolute Neutrophil Count 9.4 X10^3/uL (2.0-7.7); Basophil# 0.03 X10^3/uL; Basophil% 0.3 % (0-1); Eosinophil# 0.13 X10^3/uL; Eosinophils% 1.2 % (0-5); Hematocrit 31.5 % (37-47); Hemoglobin 8.7 g/dL (12.0-15.0); Lymphocyte # 0.75 X10^3/ul (0.83-4.51); Lymphocyte % 6.8 % (19-41); Mean Corp Hgb Conc 27.6 g/dL (32-36); Mean Corpuscular Hgb 22.3 pg (27.0-32.0); Mean Corpuscular Volume 80.8 fL (81-99); Mean Platelet Vol. 11.6 fl (6.2-12.0); Monocyte# 0.69 X10^3/uL; Monocyte% 6.3 % (0-10); NRBC Flagged by Analyzer 0 % (0-5); Neutrophil # 9.35 X10^3/uL (2.7-7.7); Neutrophil % 84.9 % (47-70); POSITIVE MORPHOLOGY YES; Platelet Count 233 K/mm3 (150-450); RBC Distribution Width CV 21.5 % (11.6-14.6); RBC Distribution Width SD 61.1 fl (35.1-43.9); RET-HE 20.6 pg (30-35)
[2023-12-04 17:44] LABS: Differential Indicated SCAN CRITERIA MET
[2023-12-04 18:10] LABS: Differential Comment SCANNED
[2023-12-04 18:13] LABS: ALB/GLOB Ratio 0.8 RATIO (0.9-2.4); AST(SGOT) 21 U/L (15-37); Alanine Aminotransfer ALT/SGPT 24 U/L (13-56); Albumin, Serum 3.1 g/dL (3.2-5.0); Alkaline Phosphatase 93 U/L (45-117); Anion Gap 3 (5-15); BUN 21 mg/dL (7-18); BUN/Creat Ratio 30.9 RATIO (10-20); Calcium,Total 9.5 mg/dL (8.5-10.1); Chloride 109 mmol/L (98-107); Cholesterol 201 mg/dL (200); Creatinine, Serum 0.68 mg/dL (0.55-1.02); EST Glomerular Filtration Rate 90 mL/min (>60); Est Glom Filt Rate - Afr Amer 109 mL/min (>60); Ferritin 8 ng/mL (8-252); Globulin 3.7 g/dL (2.2-4.2); Glucose 106 mg/dL (74-106); High Density Lipoprotein 68 mg/dL; Iron 17 ug/dL (50-170); Iron Binding Capacity,Total 482 ug/dL (250-450); LDH 251 U/L (84-246); Potassium 3.8 mmol/L (3.5-5.1); Protein, Total 6.8 g/dL (6.4-8.2); Sodium Level 138 mmol/L (136-145); Triglycerides 75 mg/dL; Very Low Density Lipoprotein 15 mg/dL (5-40)
[2023-12-06 15:08] LABS: Albumin 3.4 g/dL (2.9-4.4); Alpha-1-Globulins 0.3 g/dL (0.0-0.4); Alpha-2-Globulins 0.8 g/dL (0.4-1.0); Gamma Globulin 0.7 g/dL (0.4-1.8); Haptoglobin 201 mg/dL (42-346); IMMUNOFIXATION RESULT,S Comment: (.); Immunoglobulin A 332 mg/dL (64-422); Immunoglobulin G 642 mg/dL (586-1602); Immunoglobulin M 57 mg/dL (26-217); PROEL- TOTAL PROTEIN 6.4 g/dL (6.0-8.5)
== END | disposition home or self-care (01) ==
LOC: MFPLAB 14:23
PROVIDERS: Internal Medicine Gastroenterology; PCP Family Medicine; Visit Provider Family Medicine
DX: D64.9 Anemia, unspecified (principal); E78.5 Hyperlipidemia, unspecified
CPT/HCPCS: 36415; 80053; 80061; 82728; 82784; 83010; 83540; 83550; 83615; 84165; 85025; 85045; 86334

== ENCOUNTER → 2023-12-16 | Outpatient (CLI) | payer MEDICARE, MEDICAID, SELFPAY | END | disposition home or self-care (01) | PROVIDERS: PCP Family Medicine; Referring Provider Internal Medicine Critical Care Medicine; Visit Provider Internal Medicine Critical Care Medicine | DX: C34.92 Malignant neoplasm of unspecified part of left bronchus or lung (principal) | CPT/HCPCS: 94060; 94726; 94729 ==

== ENCOUNTER → 2023-12-19 | Outpatient (CLI) | payer MEDICARE, MEDICAID, SELFPAY ==
[2023-12-19 11:15] VITALS: PULSE 100; PULSE 101; PULSE 105; PULSE 106; PULSE 110; PULSE 94; O2SAT 93; O2SAT 95; O2SAT 96
--- NOTE | 2023-12-19 11:26 | CPS ---
Pt was able to walk for 2 minutes before needing a rest. Pt sat in wheelchair for minutes 3 and 4 and resumed walk at 5th minute. Pt stated she did feel a little SOB during her rest period.
--- NOTE | 2023-12-20 09:15 | WT_ITS ---
PSN 6 Minute Walk Test 6 Minute Walk Test 6 Minute Walk Test: 6 Minute Walk Test PSN:6-Minute Walk Test Start: 12/19/23 11:23 Freq: Status: Active Protocol: RESP.6MINW Document 12/19/23 11:15 [facility] (Rec: 12/19/23 11:28 [facility] Desktop) 6 Minute Walk Test Date Performed 12/19/23 Time Performed 11:15 Height 5 ft 2 in Weight: 128 lb Weight in Pounds 128.[address]: Dr Bansal Assistive device used: None Pre-test Oxygen Delivery Method Room Air Pulse Ox 93 Pulse Rate (60-100) 94 Dyspnea Bobby Scale (0-10) 0 Exertion Bobby Scale (6-20) 6 1st minute Oxygen Delivery Method Room Air Pulse Ox 96 Pulse Rate (60-100) 101 H 2nd minute Oxygen Delivery Method Room Air Pulse Ox 96 Pulse Rate (60-100) 106 H Dyspnea Bobby Scale (0-10) 1 Number of Rests Taken 1 Reported Symptoms Increased Work of Breathing 5th minute Oxygen Delivery Method Room Air Pulse Ox 96 Pulse Rate (60-100) 105 H 6th minute Oxygen Delivery Method Room Air Pulse Ox 96 Pulse Rate (60-100) 110 H Dyspnea Bobby Scale (0-10) 1 Exertion Bobby Scale (6-20) 11 Post-test Oxygen Delivery Method Room Air Pulse Ox 95 Pulse Rate (60-100) 100 Full Laps Walked 7 Partial Lap, Number of Tiles Walked 27 Total Distance Walked (ft) 440 12/19/23 11:26 Cardiopulmonary Services by Chica Philip Pt was able to walk for 2 minutes before needing a rest. Pt sat in wheelchair for minutes 3 and 4 and resumed walk at 5th minute. Pt stated she did feel a little SOB during her rest period. Initialized on 12/19/23 11:26 - END OF NOTE Interpretation Interpretation: The patient ambulated 440 feet over the course of 6 minutes beginning on room air without assistive devices. Pretesting oxygen saturation was noted to be 93% on room air. With ambulation, the pinky oxygen saturation was 96%. It should be noted, that the patient rested during minutes 3 and 4 of the test. Recommendations Recommendations: There is no indication for the use of supplemental oxygen at this time.
== END | disposition home or self-care (01) ==
LOC: PSN 10:50
PROVIDERS: PCP Family Medicine; Referring Provider Internal Medicine Critical Care Medicine; Visit Provider Internal Medicine Critical Care Medicine
DX: C34.92 Malignant neoplasm of unspecified part of left bronchus or lung (principal)
CPT/HCPCS: 94618

== ENCOUNTER 2023-12-25 14:48 | Outpatient (CLI) | payer MEDICARE, MEDICAID, SELFPAY ==
[2023-12-25 15:11] LABS: Hematocrit 26.6 % (37-47); Hemoglobin 7.4 g/dL (12.0-15.0)
--- OUTSIDE RECORDS SUMMARY | 2023-12-26 00:04 | XMS RPT_ITS | CCD ---
Author Name Unknown Address [address] [place] [address] Organization [facility] Care Team Providers Care Radiotelegrapher Name Role Phone Salo Serrano Unavailable Hernandez Lee Unavailable LESLIE HINSON MD Primary Care Physician [phone] Salo Serrano Unavailable Hernandez Lee Unavailable IZABEL [...] Sims Attending Laila HINSON MD, LESLIE Primary [facility] Unavailable Allergies Allergy Classification Reported Allergen(s) Allergy Type Date of Onset Reaction(s) Facility (6 sources) watermelon preparation Drug Allergy 02-12-2018 [facility] Work Phone: Medications Current Medications Medication Drug Class(es) Dates Sig (Normalized) Sig (Original) 8 hr acetaminophen 650 mg extended release oral tablet (1 source) Start: 12-13-2022 End: 12-16-2022 acetaminophen 650 mg oral tablet, extended release Dose : 650 mg = 1 tab(s), Oral, q8h, PRN as needed for pain, X 3 day(s), # 24 tab(s), 0 Refill(s), 12/16/22 9:18:00 EST, Pharmacy: [facility] 074, 157.5, cm, 12/13/22 6:00:00 [...] Non-Invasive [address] ISI DANGELO MD [facility] 04-10-2023 14:58-0400 Heart rate 85 /min DR ISI DANGELO MD [facility] 04-10-2023 14:58-0400 Respiratory rate 18 /min DR ISI DANGELO MD [facility] 04-10-2023 14:58-0400 Systolic Blood Pressure Non-Invasive [address] ISI DANGELO MD [facility] 04-10-2023 14:57-0400 Diastolic Blood Pressure Non-Invasive [address] ISI DANGELO MD [facility] 04-10-2023 14:57-0400 Heart rate 86 /min DR ISI DANGELO MD [facility] 04-10-2023 14:57-0400 Respiratory rate 22 /min DR ISI DANGELO MD [facility] 04-10-2023 14:57-0400 Systolic Blood Pressure Non-Invasive [address] ISI DANGELO MD [facility] 04-10-2023 14:39-0400 Diastolic Blood Pressure Non-Invasive [address] ISI DANGELO MD [facility] 04-10-2023 14:39-0400 Heart rate 87 /min DR ISI DANGELO MD [facility] 04-10-2023 14:39-0400 Reason For Taking VItal Signs DR ISI DANGELO MD [facility] 04-10-2023 14:39-0400 Respiratory rate 21 /min DR ISI DANGELO MD [facility] 04-10-2023 14:39-0400 Systolic Blood Pressure Non-Invasive [address] ISI DANGELO MD [facility] 04-10-2023 14:30-0400 Heart rate 81 /min DR ISI DANGELO MD [facility] 04-10-2023 14:25-0400 Heart rate 82 /min DR ISI DANGELO MD [facility] 04-10-2023 14:20-0400 Heart rate 84 /min DR ISI DANGELO MD [facility] 04-10-2023 11:41-04[address] Blood Pressure Cuff Size DR ISI DANGELO MD [facility] 04-10-2023 11:41-[address] ISI DANGELO MD [facility] 04-10-2023 11:41-[address] ISI DANGELO MD [facility] 04-10-2023 11:41-0400 Body temperature 98.42 [degF] DR ISI DANGELO MD [facility] 04-09-2023 14:50-0400 Body height 157.[address] ISI DANGELO MD [facility] 04-09-2023 14:50-0400 Body weight [address] ISI DANGELO MD [facility] 04-09-2023 14:50-0400 Body weight 25.8 kg/m2 DR ISI DANGELO MD [facility] 12-13-2022 14:39-0500 Heart rate 82 /min IZABEL QUIÑONES MD [facility] 12-13-2022 14:39-0500 Reason For Taking VItal Signs IZABEL QUIÑONES MD [facility] 12-13-2022 14:27-0500 Heart rate 83 /min IZABEL QUIÑONES MD [facility] 12-13-2022 14:27-0500 Reason For Taking VItal Signs IZABEL QUIÑONES MD [facility] 12-13-2022 14:15-0500 Heart rate 83 /min IZABEL QUIÑONES MD [facility] 12-13-2022 14:15-0500 Reason For Taking VItal Signs IZABEL QUIÑONES MD [facility] 12-13-2022 12:30-0500 Diastolic Blood Pressure Non-Invasive 74 1 IZABEL QUIÑONES MD [facility] 12-13-2022 12:30-0500 Mean blood pressure 91 mm[Hg] IZABEL QUIÑONES MD [facility] 12-13-2022 12:30-0500 Systolic Blood Pressure Non-Invasive 136 1 IZABEL QUIÑONES MD [address] [place] [address] 12-13-2022 12:15-0500 Diastolic Blood Pressure Non-Invasive 95 1 IZABEL QUIÑONES MD [address] [place] [address] 12-13-2022 12:15-0500 Mean blood pressure 109 mm[Hg] IZABEL QUIÑONES MD [address] [place] [address] 12-13-2022 12:15-0500 Systolic Blood Pressure Non-Invasive 146 1 IZABEL QUIÑONES MD [address] [place] [address] 12-13-2022 12:00-0500 Mean blood pressure 97 mm[Hg] IZABEL QUIÑONES MD [address] [place] [address] 12-13-2022 12:00-0500 Systolic Blood Pressure Non-Invasive 154 1 IZABEL QUIÑONES MD [address] [place] [address] 12-13-2022 11:26-0500 Heart rate 72 /min IZABEL QUIÑONES MD [address] [place] [address] 12-13-2022 11:26-0500 Respiratory rate 18 /min IZABEL QUIÑONES MD [facility] 12-13-2022 10:30-0500 Diastolic blood pressure 80 mm[Hg] IZABEL QUIÑONES MD [address] [place] [address] 12-13-2022 10:30-0500 Mean blood pressure 117 mm[Hg] IZABEL QUIÑONES MD [address] [place] [address] 12-13-2022 10:30-0500 Systolic blood pressure 179 mm[Hg] IZABEL QUIÑONES MD [address] [place] [address] 12-13-2022 10:15-0500 Diastolic blood pressure 79 mm[Hg] IZABEL QUIÑONES MD [facility] 12-13-2022 10:15-0500 Mean blood pressure 114 mm[Hg] IZABEL QUIÑONES MD [facility] 12-13-2022 10:15-0500 Systolic blood pressure 174 mm[Hg] IZABEL QUIÑONES MD [facility] 12-13-2022 10:00-0500 Diastolic blood pressure 77 mm[Hg] IZABEL QUIÑONES MD [facility] 12-13-2022 10:00-0500 Mean blood pressure 115 mm[Hg] IZABEL QUIÑONES MD [facility] 12-13-2022 10:00-0500 Systolic blood pressure 175 mm[Hg] IZABEL QUIÑONES MD [facility] 12-13-2022 09:33-0500 Blood Pressure Location IZABEL QUIÑONES MD [address] [place] [address] 12-13-2022 09:30-0500 Blood Pressure Location IZABEL QUIÑONES MD [facility] 12-13-2022 08:52-0500 Body temperature 97.88 [degF] IZABEL QUIÑONES MD [facility] 12-13-2022 08:52-0500 Respiratory rate 16 /min IZABEL QUIÑONES MD [facility] 12-13-2022 06:00-0500 Blood Pressure Cuff Size IZABEL QUIÑONES MD [facility] 12-13-2022 06:00-0500 Blood Pressure Method IZABEL QUIÑONES MD [facility] 12-13-2022 06:00-0500 Body height 157.5 cm IZABEL QUIÑONES MD [facility] 12-13-2022 06:00-0500 Body temperature 96.08 [degF] IZABEL QUIÑONES MD [facility] 12-13-2022 06:00-0500 Body weight 66.9 kg IZABEL QUIÑONES MD [facility] 12-13-2022 06:00-0500 Heart rate 85 /min IZABEL QUIÑONES MD [address] [place] [address] 12-11-2022 09:21-0500 Blood Pressure Cuff Size IZABEL QUIÑONES MD [address] [place] [address] 12-11-2022 09:21-0500 Blood Pressure Location IZABEL QUIÑONES MD [address] [place] [address] 12-11-2022 09:21-0500 Blood Pressure Method IZABEL QUIÑONES MD [address] [place] [address] 12-11-2022 09:21-0500 Body height 160 cm IZABEL QUIÑONES MD [facility] 12-11-2022 09:21-0500 Body temperature 96.98 [degF] ZIABEL QUIÑONES MD [facility] 12-11-2022 09:21-0500 Body weight 66.9 kg IZABEL QUIÑONES MD [address] [place] [address] 12-11-2022 09:21-0500 Diastolic Blood Pressure Non-Invasive 93 1 IZABEL QUIÑONES MD [facility] 12-11-2022 09:21-0500 Heart rate 81 /min IZABEL QUIÑONES MD [address] [place] [address] 12-11-2022 09:21-0500 Systolic Blood Pressure Non-Invasive 157 1 IZABEL QUIÑONES MD [address] [place] [address] 12-11-2022 08:50-0500 SaO2% (BldA) [Mass fraction] 95.2 % IZABEL QUIÑONES MD [facility] Encounters Encounter Date Encounter Type Care Provider Facility Start: 04-10-2023 End: 04-10-[address] ISI DANGELO MD Facility:A Start: 04-10-2023 End: 04-10-[address] ISI DANGELO MD [facility] Start: 03-26-2023 Telephone encounter Leslie Hinson MD Work Phone: Internal Medicine [place] Procedures Date Procedure Procedure Detail Performing Clinician Start: 05-15-2019 Mammography Sarah reyna MA Start: 07-04-2016 Adult depression scr eening assessment Sarah Calhoun MA Start: 03-18-2013 Colonoscopy Sarah reyna MA Abdominal hysterectomy YOVANNY QUIÑONES MD Plan of Treatment Date Care Activity Detail Author Start: 06-28-2023 Influenza vaccination INFLUENZA (Sea son Ended) [facility] Start: 03-18-2023 Colonoscopy COLONOSCOPY [facility] Start: 03-18-2023 COLORECTAL CANCER SCREENING COLORECTAL CANCER SCREENING [facility] Start: 12-20-2022 LIPID SCREEN LIPID SCREEN [facility] Start: 10-28-2022 ADVANCE DIRECTIVE DISCUSSION ADVANCE DIRECTIVE DISCUSSION [facility] Start: 10-28-2022 DEPRESSION ASSESSMENT DEPRESSION ASS ESSMENT [facility] Start: 06-28-2022 Influenza vaccination INFLUENZA (#1) [facility] Start: 03-18-2022 DIABETES SCREEN DIABETES SCREEN [facility] Start: 10-28-2021 ADVANCE DIRECTIVE DISCUSSION ADVANCE DIRECTIVE DISCUSSION [facility] Start: 05-15-2020 Mammography MAMMOGRAM [facility] Start: 05-02-2019 ANNUAL PCP TEAM SOCK EXAMINER VICTORIA DISEASE VISIT ANNUAL PCP TEAM CHRONIC DISEASE VISIT [facility] Start: 07-04-2017 Adult depression scr eening assessment DEPRESSION SCREENING [facility] Start: 1999 SHINGRIX VACCINE (1 of 2) SHINGRIX V ACCINE (1 of 2) [facility] Start: 1994 COLOGUARD (FIT-DNA) COLOGUARD (FIT-D NA) [facility] Start: [address] COLONOGRAPHY [facility] Start: 1994 FECAL OCCULT BLOOD FECAL OCCULT BLOO D [facility] Start: 1994 SIGMOIDOSCOPY SIGMOIDOSCOPY [facility] Start: 1979 Zoledronic acid therapy ALPHA- 1 ANTITRYPSIN DEFICIENCY SCREENING [facility] Start: 01-09-1968 Urine microalbumin profile DTAP,TDAP ,TD (1 - Tdap) [facility] Start: 1967 BP CONTROLLED (<130/80) BP CONTROLLE D (<130/80) [facility] Start: 1967 SPIROMETRY SPIROMETRY [facility] Start: 1949 COVID-19 VACCINE (#1) COVID-19 VACCI NE (#1) [facility] Immunizations Immunization Date Immunization Notes Care Provider Caesar noriega 12-13-2022 influenza, high-dose , quadrivalent IZABEL QUIÑONES MD [facility] 07-29-2017 influenza, high dose seasonal, preservative-free Sarah Calhoun MA [facility] 08-10-2016 influenza, high dose seasonal, preservative-free Sarah aClhoun [facility] Work Phone: 03-15-2016 pneumococcal conjuga te vaccine, 13 valent Sarah Calhoun MA [facility] 07-22-2015 influenza, seasonal, injectable Sarah Calhoun MA [facility] 07-28-2014 influenza, seasonal, injectable Sarah Calhoun MA [facility] 02-26-2014 pneumococcal polysaccharide vaccine, 23 valent Sarah Calhoun MA [facility] Payers Date Payer Category Payer Private Health Insurance [id number] 2022 Private Health Insurance [id number] 2022 Private Health Insurance [id number] 2022 Private Health Insurance [id number] 2019 Unknown ANTHCANDE BLUE [facility] S AND BLUE SHIELD ANTHEM MEDIBLUE O [id number] 2019-Present [phone] [address] [place] [address] O [id number] 1950 Unknown [id number] 1949 Unknown [id number] 1949 Unknown [id number] 1950 Unknown [id number] 1950 Unknown [id number] Social History Date Type Detail Facility Start: [facility]-17-[facility] End: 11-04-2015 History of tobacco use Current smoker [facility] End: 11-04-2015 History of tobacco use Cigarette Smoker [facility] Start: 11-17-2015 Cigarettes smoked cu rrent (pack per day) - Reported 0.3 [facility] Start: 11-17-2015 Tobacco use and exposure Smoke less tobacco non-user [facility] Start: 09-15-2018 Alcohol intake Current non-dr journeyman millwright of alcohol (finding) [facility] Start: 1950 Sex Assigned At Not on file C [facility] Start: 12-11-2022 Tobacco smoking status Light t obacco smoker (finding) [facility] Medical Equipment Procedure Code Equipment Code Equipment Origin al Text Equipment Identifier Dates [id number]-[id number]-C-Kind Implant - [id number] Start: 06-15-2015 Functional Status Date Assessment Result Facility 04-10-2023 Functional Status ID band on, Allergy Band on, Bed in low position, Wheels locked, Upper/Half-Length side-rails up, Safety level maintained [facility] 04-10-2023 Functional Status [facility] 04-10-2023 Functional Status [facility] 04-09-2023 Functional Status Sensory Deficits None A [facility] 12-13-2022 Functional Status Up to chair, Warm blankets [facility] 12-13-2022 Functional Status Lunch Percent 100 [facility] 12-13-2022 Functional Status [facility] 12-13-2022 Functional Status Room check performed [facility] 12-11-2022 Functional Status Sensory Deficits None A [facility] Mental Status Date Assessment Result Facility 04-10-2023 Mental Status Oriented x 4 [facility] 04-10-2023 Mental Status [facility] 12-13-2022 Mental Status Oriented x 4, Follows simple commands [facility] Clinical Notes 12-06-2016 to 04-10-2023 Telephone Encounter [...] Levi Chadwick/Sex: 1950 Female Med Rec #: [id number] Physician: Financial #: [id number] Pt. Type: O Room/Bed: / Admit/Disch: 04/10/23 11:09:00 - Institution: Allergies identified in patient's electronic medical record at time of printing on 04/10/23 Entry 1 Substance Watermelon Reaction Type Allergy Last Modified By: Jyoti Thomas RN 11/14/22 10:05:05 Case Attendance- CT Entry 1 Entry 2 Entry 3 Case Attendee LIS SWANSON MD, Sheela Montelongo Role Performed Radiologist Procedure Procedure Nurse Excavating Supervisor Details Time In 04/10/23 13:14:00 04/10/23 13:03:00 [...] for Time Out JARED [place], Confirm/obtain preop [email or web address] antibiotic order., Alcohol based prep dry, Double verification of sterility indicators complete Instrument Sterility Team Members LIS SWANSON MD Verifying Sterility Procedure CT Biopsy Neck (SN) Last Modified By: JARED [place] 04/10/23 13:15:59 Skin Prep - CT Entry [address] Biopsy Neck (SN) Skin Prep Prep Area Abdomen Side Right By [employer] Prep Agents Chloraprep Hair Removal Method N/A [...] during the perioperative period. Outcomes Met? Yes Radiotelegrapher JARED [place] Completing Procedure Plan Last Modified By: JARED [place] 04/10/23 13:14:00 Radiology Lines and Procedures- CT Entry 1 Radiology Sedation Case Times Sedation Start Time 04/10/23 13:25:00 Sedation Stop Time 04/10/23 14:29:00 Sedation Total Time 1 hour 5 minutes Radiology - Fluid/Drainage RAD - CT Guidewires, Cath... [place] [employer] Biopsy Needle [id number] Radiology Urinary Catheter Radiology - CT Other [...] [place] 04/10/23 14:46 Sheela Zhang 04/10/23 15:00 [facility] 04-10-2023 Procedure note Brief IR Post Procedure Note - Outpatient Pre Procedure Dx: Left parotid lesion, non-dx FNA Post Procedure Dx: Same Procedure: 1. CT core biopsy Equal Opportunity Representative: Steve Chemistry Manager: None Anesthesia: Local, moderate sedation EBL: Minimal [...] Vascular & Interventional [facility] ([facility]) [email or web address] [email or web address] Pager: [phone] [facility] Dept (20/05): [phone] [facility] [phone] [facility] Digitally Signed by LIS SWANSON MD on 04/10/2023 03:26 PM [facility] 04-10-[address] Procedure Record Summary Primary Physician: Finalized Date/Time: 04/10/23 15:00:07 Pt. Name: JUAN HAWKINS Levi Chadwick/Sex: 1950 Female Med Rec #: [id number] Physician: Financial #: [id number] Pt. Type: O Room/Bed: / Admit/Disch: 04/10/23 11:09:00 - Institution: Allergies identified in patient's electronic medical record at time of printing on 04/10/23 Entry 1 Substance Watermelon Reaction Type Allergy Last Modified By: Jyoti Thomas RN 11/14/22 10:05:05 Case Attendance- CT Entry 1 Entry 2 Entry 3 Case Attendee LIS SWANSON MD, RN Sheela Alcantara Role Performed Radiologist Procedure Procedure Nurse Excavating Supervisor Details Time In 04/10/23 13:14:00 04/10/23 13:03:00 [...] for Time Out JARED [place], Confirm/obtain preop [employer] antibiotic order., Alcohol based prep dry, Double verification of sterility indicators complete Instrument Sterility Team Members LIS SWANSON MD Verifying Sterility Procedure CT Biopsy Neck (SN) Last Modified By: JARED [place] 04/10/23 13:15:59 Skin Prep - CT Entry [address] Biopsy Neck (SN) Skin Prep Prep Area Abdomen Side Right By [employer] Prep Agents Chloraprep Hair Removal Method N/A [...] during the perioperative period. Outcomes Met? Yes Radiotelegrapher JARED [place] Completing Procedure Plan Last Modified By: JARED [place] 04/10/23 13:14:00 Radiology Lines and Procedures- CT Entry 1 Radiology Sedation Case Times Sedation Start Time 04/10/23 13:25:00 Sedation Stop Time 04/10/23 14:29:00 Sedation Total Time 1 hour 5 minutes Radiology - Fluid/Drainage RAD - CT Guidewires, Cath... [place] [employer] Biopsy Needle [id number] Radiology Urinary Catheter Radiology - CT Other [...] [place] 04/10/23 14:46 Sheela Zhang 04/10/23 15:00 [facility] 04-10-2023 Hospital Discharg e instructions Patient Education 04/10/2023 12:44:59 Radiology- Procedure/Biopsy 02/10/2020 (CUSTOM) [place] Radiology Procedure/Biopsy Discharge Instructions Interventional Radiology [facility] Imaging Services [address] [address] Today, you had a biopsy of your [...] 1 to 2 days following the procedure. Zthz-ejd-ktnhyik pain medication should be used for pain [...] below: For the first 24 hours, call [phone] After 24 hours, contact the physician who [...] until you are awake and alert. Take dlxc-aup-ftfvcqb and prescription medicines only as told by [...] 08/04/2014 Document Revised: 09/26/2018 Document Reviewed: 02/02/2017 [employer] Patient Education 2020 [employer]. Follow Up Care 03/27/2023 08:25:58 With:ISI DANGELO MD Address: [address]ULI Richards [address] [place] [address] [place] [address]- When: Unknown Comments:Follow-up as scheduled [facility] 04-10-2023 Summary of episod e note Discharge Instructions Thank you for allowing [facility] to assist you with your healthcare needs. The following is important discharge information regarding your hospital visit. What to do next Follow Up Appointments Follow Up with ISI DANGELO MD When Why: Follow-up as scheduled Where: [facility] [address] [facility] [place] [address]- Allergies Watermelon (Hives) Medications Please ask your [...] medication providers or retail pharmacies. Education Materials [place] Radiology Procedure/Biopsy Discharge Instructions Interventional Radiology [facility] Imaging Services [address] [place] [address] Today, you had a biopsy of your [...] 1 to 2 days following the procedure. Axjt-nrh-dgdkrjo pain medication should be used for pain [...] below: For the first 24 hours, call [phone] After 24 hours, contact the physician who [...] until you are awake and alert. Take tsed-rbi-dalkbhm and prescription medicines only as told by [...] 08/04/2014 Document Revised: 09/26/2018 Document Reviewed: 02/02/2017 [employer] Patient Education 2020 [employer]. Additional Information VACCINATE! IT SAVES LIVES! Members of the community who have not yet received the COVID-19 vaccine and would like to receive it can visit one of [facility] vaccine clinics. There are many vaccine clinic locations within the [facility]. For locations and available times, please visit [email or web address].o hio.gov/. It is important to note that some COVID mobile vaccine clinics are held outdoors and may be canceled in rainy or stormy conditions. To learn more about pediatric vaccinations (ages 5-11), we invite you to visit the [facility] webpage. https://www.[email or web address]/p [email or web address]-Aaeba-Lxyfqalpnja-Freq fniacb-Pdxtc-Fzogzdcwg.html To learn more about the COVID-19 vaccine, we invite you to visit the CDC website for a list of frequently asked questions.https://www.cdc.gov/co ronavirus/2019-ncov/vaccines/faq .html [employer] Patient Portal Access Instructions: Stay connected with your healthcare team and access your personal medical information anytime with the [employer] Patient Portal. Please follow the directions below to create your [employer] account: 1.Access the email account you provided upon registration to the hospital/physician office.2.Look for an invitation email from [facility].3.Open the email and access the invitation link: Accept Invitation to [facility].4.Fill in the required mar to create your account. To access your account, visit [email or web address]. Click the blue button labeled Access Patient [...] you will allow to register on the [facility] [employer] Patient Portal for access to your information. You can also access the [facility] Patient Portal on the [facility] lisa. Simply click on Patient Portal and then log into your account. If you would like to receive a full copy of your medical records, please contact the [facility] Medical Records Department by calling [phone], Saturday through Saturday between 8 a.m. and [...] Call your local pharmacy or go to http://bit.DriveFactor/6L8Pc3s to find one close to you.3.Make use of household items: Use cat litter or old coffee grounds to dispose medications if other options are not available. Mix your drugs with these household products, seal them in an airtight container and throw it into the garbage. Call [facility]: [phone] to be sure your drugs can be [...] aware that I should contact my doctor. Patient/Damascener Signature: Date/Time: Relationship to Patient: Witness Name/Signature: Date/Time: [facility] 03-26-2023 Miscellaneous Notes Rox, received an H&P request for an order for a biopsy. Advised that Patient is has not been seen at the [facility] since 2018. She is not a Patient of [facility]any Mcdaniels/Quinton will contact ordering Doctor. Era Guevara LPN documented in this encounter [facility] 12-20-2022 Note ORIGINAL PROCEDURE: DOS: 11/30/2022 2:05 [...] Sign Date: 12/20/2022 1:05:37 AM [facility] ([place]) 12-13-2022 Note Discharge Instructions Thank you for [...] 10:30 AM EST JESUS MANUEL BLOOM APRN-ARELIS [facility] Cardiothoracic Surgery Follow Up Appointments Follow Up with JESUS MANUEL BLOOM APRN-ARELIS When 12/27/2022 10:30 AM EST Where: [address] [facility] [place] [address]- Follow Up with LESLIE HINSON When Within 1-2 days Where: [facility] [address] [place] [address]- [phone] Business (1) The Following Activity and Diet [...] for pain Duration: 3 Days Pickup at [facility] 074 Unchanged albuterol (Albuterol (Eqv-Proventil [...] Once a day Pharmacy Information [facility] 074: [address] [place], [place] [phone] What How Much When Comments Stop Taking [...] and skin patches. Some may be available zngz-pqs-qwqrpxr and others require a prescription. Antidepressant medicine [...] Document Reviewed: 01/22/2013 ExitCare Patient Information 2015 EvalYou. 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 ? Change your dressing as told by [...] until your health care provider approves. Take jqkw-hja-lhsjncu and prescription medicines only as told by [...] 05/03/2006 Document Revised: 09/26/2018 Document Reviewed: 07/26/2017 ElseNoom Patient Education 2020 [employer]. Additional Information VACCINATE! IT SAVES LIVES! Members of the community who have not yet received the COVID-19 vaccine and would like to receive it can visit one of [facility] vaccine clinics. There are many vaccine clinic locations within the [facility]. For locations and available times, please visit https://gettheshot.coronavirus.[place].gov/. It is important to note that some COVID mobile vaccine clinics are held outdoors and may be canceled in rainy or stormy conditions. To learn more about pediatric vaccinations (ages 5-11), we invite you to visit the [facility] webpage. https://www.akronOrderBorders.org/p ages/1145-Pfpvq-Bjwvbljhpwx-Freq updpyw-Oeucy-Swzxgrhgg.html To learn more about the COVID-19 vaccine, we invite you to visit the CDC website for a list of frequently asked questions. https://www.cdc.gov/coronavirus/ 2019-ncov/vaccines/faq.html [employer] Patient Portal Access Instructions: Stay connected with your healthcare team and access your personal medical information anytime with the [employer] Patient Portal.If you would like a full copy of your medical records, please contact the [facility] Medical Records Department, Saturday through Saturday between 8a.m. and 4:30p.m. Please follow the directions below to access the portal: 1.Access the email account you provided upon registration to the [facility].2.Look for an invitation email from [facility].3.Open the email and access the invitation link: Accept Invitation to [employer]4.Fill in the required mar to create your account. Sign into www.[employer] with your username and password that you [...] you will allow to register on the [employer] Patient Portal for access to your information. You can also access the [employer] Patient Portal on the [employer] lisa. Simply click on Health Records under Health Data and then click on the [employer] logo. HOW TO SAFELY DISPOSE OF PRESCRIPTION [...] Call your local pharmacy or go to http://RetailVector.DriveFactor/9L4Mm7v to find one close to you.3.Make use of household items: Use cat litter or old coffee grounds to dispose medications if other options are not available. Mix your drugs with these household products, seal them in an airtight container and throw it into the garbage. Call [facility]: [phone] to be sure your drugs can be [...] aware that I should contact my doctor. Patient/Damascener Signature: Date/Time: Relationship to Patient: Witness Name/Signature: Date/Time: [facility] 12-13-2022 Hospital Discharg e instructions Patient Education [...] and skin patches. Some may be available mnsu-gyx-zdfpmtj and others require a prescription. Antidepressant medicine [...] Document Reviewed: 01/22/2013 ExitCare Patient Information 2015 EvalYou. 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 ?Change your dressing as told by your [...] until your health care provider approves. Take cyon-wne-jffljxt and prescription medicines only as told by [...] 05/03/2006 Document Revised: 09/26/2018 Document Reviewed: 07/26/2017 [employer] Patient Education Nvest. Follow Up Care 11/29/2022 16:22:14 With:LESLIE HINSON Address: [facility] [address] [place] [address] [phone] Business (1) When:1-2 days With:JESUS MANUEL BLOOM [facility] Address: [address] [place] [address] [place] [address]- When:12/27/2022 10:30:00 [facility] 12-13-2022 Note Date of Service 12/13/2022 Discharge [...] Where: [address] [facility] Cardiothoracic Surgery [place] [id number]- Discharge Diet Discharge Diet - Ordered -- [...] by NAOMI MICHAELS on 12/13/2022 03:23 PM [facility] 12-13-2022 Note ORIGINAL EXAMINATION: ONE XRAY VIEW [...] Sign Date: 12/13/2022 9:23:26 AM Ordering Provider: [facility] 12-13-2022 Note ORIGINAL EXAMINATION: ONE XRAY [...] Sign Date: 12/13/2022 9:23:26 AM Ordering Provider: [facility] 12-13-2022 Anesthesiology Consult note Patient: JUAN [...] list: Medical Aortic stenosis / SNOMED CT 258679614 / Confirmed Asthma / SNOMED CT 865777826 / Confirmed High blood pressure / SNOMED CT 97847753 / Confirmed Hypercholesterolemia / SNOMED CT 20564013 / Confirmed Cancer of right lung / SNOMED CT 397521037 / Confirmed Tobacco abuse / SNOMED CT 006062167 / Confirmed, Active Problems (13) Aortic stenosis Arthritis Asthma Back pain Cancer of right lung Constipation Glasses High blood pressure Hypercholesterolemia Migraine Palpitations Presence of dental prosthetic device Tobacco abuse Histories Past Medical History: Active High blood pressure (39404479) Hypercholesterolemia (85155025) Family History: Cancer Father HTN - Hypertension Father Pacemaker catheter, device Brother Alzheimer disease Mother Procedure history: Appendectomy (039931651). Abdominal hysterectomy partial (889304263). Comments: 12/11/2022 9:29 JARED Cintron partial Amputation of finger of right hand (4054953113). Dilation and curettage (71163770). Cataract extraction (39218609). Comments: 12/11/2022 9:28 JARED Cintron bilateral Social [...] EST Quincy BERMUDEZ . Assessment and Plan [place] [employer] Anesthesiologists (ASA) physical status classification: [...] NELSON CORONEL DO on 12/13/2022 05:56 AM [facility] 06-20-2022 Note Patient Outreach (NE TNAV) JUAN HAWKINS ([id number]) 1950 F [facility] Date Time Provider Department 06/20/22 SARAH CALHOUN [...] Care Gap or Scheduling/Wellness visits Payer: Payor: [employer] AND BLUE SHIELD / Plan: duuin HMO / Product Type: HMO / Care [...] Visit: Population Health Navigation Outreach [[id number]] Cmt: [place] Lacy Gaps Prescriptions as of 06/20/2022 - [...] by KIAN POPULATION BLUE NAVIGATORSARAH on 06/20/22 [facility] 06-20-2022 Note HNO ID: [id number] Author: Sarah Calhoun MA Service: ? Author Type: Bill Board Poster Type: Progress Notes Filed: 06/20/2022 4:15 PM [...] Care Gap or Scheduling/Wellness visits Payer: Payor: [employer] / Plan: ANTHEM MEDIBLUE HMO / Product [...] Calhoun MA June 20, 2022 8:42 AM [facility] 06-20-2022 History of Presen t illness [...] Care Gap or Scheduling/Wellness visits Payer: Payor: [employer]ful / Plan: ANTHEM MEDIBLUE HMO / Product [...] 2022 8:42 AM documented in this encounter [facility] documented as of this encounter (statuses as of 06/20/2022) [facility] History of Past illness Narrative* Problem Noted [...] of this encounter (statuses as of 03/26/2023) [facility] Evaluation + Plan note Future Appointments Appointment Date:12/27/2022 10:30:00 AM Scheduled Provider:JESUS MANUEL BLOOM Location:[facility] CAN Appointment Type:CTS OV Post Op [facility] Hospital course Narrative No data available for this section [facility] Hospital Discharge instructions No data available for this section [facility] Progress note No data available for this section [facility] Advance Directives No Advanced Directives Records FoundDocuments on File Type Date Recorded Patient Damascener Expl anation Advance Directive(s) 08/14/2016 10:25 AM [...] or prosecute any alcohol or drug abuse patient.[facility] the event this information is protected by the Federal Confidentiality of Alcohol and Drug Abuse Patient Records regulations: The Federal rules restrict any use of the information to criminally investigate or prosecute any alcohol or drug abuse patient.[facility] Reason for Visit (unrecogniz ed section and content) Reason Comments Orders Care Teams (unrecognized sec tion and content) Radiotelegrapher Relationship Specialty Start Date End Date ZachSalo [address] [address] Physician Cardiology 03/24/19 Hernandez Lee [address] [facility] [address] [place] [address] Physician Cardiology 03/24/19 Care Team (unrecognized sect ion and content) Care Team Personnel Name: LESLIE HINSON MD Member Role: Primary Care Physician Address: Address: [facility] [address] [place] [address]- [place] Name: SHARLENE ABDUL MD Member Role: Oncologist Address: Address: [facility] [place] [address]- [place] Name: OLENA DIAZ DO Member Role: Radiation Oncologist Address: Address: [address] [facility]- [place] [address]- Care Team Related Persons Name: BAHMAN HAWKINS Address: Home [address] [place], [place] [id number] Care Team Personnel Name: LESLIE HINSON MD Member Role: Primary Care Physician Address: Address: [address] [place] [address]- Name: SHARLENE ABDUL MD Member Role: Oncologist Address: Address: Critical [place] [address]- Name: OLENA DIAZ DO Member Role: Radiation Oncologist Address: Address: [facility] [place] [address]- Care Team Related Persons Name: BAHMAN HAWKINS Address: Home [address] [place], [place] [phone] Care Team Personnel Name: LESLIE HINSON MD Member Role: Primary Care Physician Address: Address: [address] [place] [address]- Name: SHARLENE ABDUL MD Member Role: Oncologist Address: Address: Critical [place] [address]- Name: OLENA DIAZ DO Member Role: Radiation Oncologist Address: Address: [facility] [place] [address]- Care Team Related Persons Name: BAHMAN HAWKINS Address: Home [address] [place], [place] [phone] INFORMATION SOURCE (unrecogn ized section and content) DATE CREATED AUTHOR AUTHOR'S ORGANIZ ATION 04/16/2023 [facility] ([place]) FOR RECORDS PERTAINING TO PATIENTS WHO ARE [...] BE BASED ON THE PRIMARY CLINICAL RECORDS. [facility] [employer] provides no warranty or guarantee of the accuracy or completeness of information in this document.
== END 2023-12-25 14:49 | disposition home or self-care (01) ==
LOC: MEDOUTP 14:48
PROVIDERS: PCP Family Medicine; Referring Provider Internal Medicine Gastroenterology; Visit Provider Internal Medicine Gastroenterology
DX: D50.0 Iron deficiency anemia secondary to blood loss (chronic) (principal)
CPT/HCPCS: 36591; 85014; 85018; A4216

== ENCOUNTER 2023-12-25 15:30 | Emergency (ER) | payer MEDICARE, MEDICAID, SELFPAY ==
[2023-12-25] VITALS (12 sets, daily range): BP systolic 89–142; BP diastolic 54–86; PULSE 77–95; RESP 16–92; TEMP 36.4–36.6; O2SAT 17–98; BMI 23.3
--- NOTE | 2023-12-25 15:51 | EDS_ITS ---
HPI HPI - GI History of Present Illness Chief Complaint: GI Bleed Narrative Narrative: 73-year-old female presenting from Dr. Morris's office for GI bleed. Her hemoglobin is up and trending downward. Patient states she does feel fatigued and generally weak. She states she does not have any bright red bleeding that she has noted in her ostomy. She states she does have black stool. At times it is hard and other times it is soft. Patient states she has history of non-small cell lung carcinoma, and she states they believe it is in remission. She is not on any anticoagulation. Patient denies any pain. She has not had any fevers or chills. Patient does have a history of GI bleed. Apparently she had a capsule endoscopy which showed bleeding and a blood clot in some part of her bowel. She is unsure where this is but was brought down from Dr. Morris's office and she understands that she is supposed to be transferred for surgical intervention. [facility] Medical History Alopecia Arthritis Asthma Back pain Benign neoplasm of colon Cancer Cancer related pain Cardiology follow-up encounter Chronic constipation Contact with and (suspected) exposure to other viral communicable diseases COPD (chronic obstructive pulmonary disease) COVID-19 Easy bruising Encounter for education Essential hypertension Fatigue Former smoker Gastric reflux Generalized weakness High cholesterol History of echocardiogram History of edema History of irregular heartbeat History of stress test Hyperlipidemia Hypertension Hypokalemia Mild aortic stenosis Nicotine dependence Pneumonia Restless legs Shortness of breath on exertion Wears dentures Wears glasses Home Medications atorvastatin 10 mg tablet 10 mg PO QHS CHOLESTEROL #90 tabs 04/17/21 [Rx Last Taken 08/20/23] montelukast 10 mg tablet 10 mg PO DAILY ALLERGIES 08/21/22 [History Last Taken 08/21/23] Hair prostethesis #1 ea 01/17/23 [Rx Last Taken Unknown] gabapentin 300 mg capsule 300 mg PO QHS NERVE PAIN 03/18/23 [History Last Taken 08/20/23] colestipol 1 gram tablet 1 g PO BID CHOLESTEROL #60 tabs 04/16/23 [Rx Last Taken 08/21/23] pantoprazole 40 mg tablet,delayed release 40 mg PO DAILY ACID REFLUX #30 tabs 07/25/23 [Rx Last Taken 08/21/23] dicyclomine 10 mg capsule 10 mg PO BID IRRITABLE BOWELS 08/21/23 [History Last Taken 08/21/23] lidocaine-prilocaine 2.5 %-2.5 % topical cream 1 applic topical ONCE PRN PORT ACCESS 30 days #30 grams 08/21/23 [Rx Last Taken Unknown] mirtazapine 15 mg tablet 15 mg PO QHS DEPRESSION 08/21/23 [History Last Taken 08/20/23] ondansetron HCl 4 mg tablet 4 mg PO TID PRN NAUSEA/VOMITING 08/21/23 [History Last Taken Unknown] albuterol sulfate 90 mcg/actuation aerosol inhaler 2 puff inhalation Q4H PRN SHORTNESS OF BREATH/WHEEZING #8.5 grams 11/20/23 [Rx Last Taken Unknown] budesonide-formoterol HFA 160 mcg-4.5 mcg/actuation aerosol inhaler (Symbicort) 2 puff inhalation BID COPD #3 device 11/20/23 [Rx Last Taken Unknown] prochlorperazine maleate 5 mg tablet 5 mg PO Q6H PRN nausea and vomiting 11/20/23 [History Last Taken Unknown] Allergy/AdvReac Type Severity Reaction Status Date / Time watermelon Allergy Intermediate Hives Verified 11/29/23 20:52 Family History Father Cancer spinal Mother Alzheimer's disease Brother Pacemaker Surgical History History of amputation of finger of right hand History of appendectomy History of breast surgery History of cataract extraction History of creation of ostomy History of cystoscopy History of D&C History of hysterectomy History of toe surgery History of tonsillectomy Hx of colonoscopy Status post Eleno procedure Social History household members: spouse pets and animals: Yes (dogs) Smoking Status: Former smoker how long ago did patient quit smokin alcohol intake: former substance use type: does not use ROS ROS ED Constitutional Constitutional ED: Denies chills, fever(s) or sweats Eyes Eyes: Denies blurry vision or change in vision ENT ENT ED: Denies ear pain or sore throat Cardiovascular Cardiovascular: Denies chest pain, palpitations or racing heartbeat Respiratory/Chest Respiratory/Chest: Denies cough, dyspnea or sputum Gastrointestinal Gastrointestinal: Reports melena; Denies abdominal pain, constipation, diarrhea, nausea or vomiting Genitourinary Genitourinary ED: Denies dysuria, hematuria or urinary frequency Musculoskeletal Musculoskeletal: Denies arthralgias, myalgias or neck pain Integumentary Denies abscess, Abrasions or rash Neurologic Neurologic: Denies headache(s), paresthesias or weakness Psychiatric Psychiatric: Denies anxiety, depression, suicidal ideation or suicidal thoughts Endocrine Endocrinology: Denies polydipsia or polyuria EXAM Physical Exam Const Vital Signs: 12/25/23 15:30 12/25/23 15:39 12/25/23 15:58 Temperature 97.5 F L Temperature Source Temporal Pulse Rate 95 89 92 Respiratory Rate 16 22 H 92 H Blood Pressure 89/54 L 102/54 L 114/58 L Blood Pressure Mean 65 70 76 Pulse Ox 95 96 17 Oxygen Delivery Method Room Air 12/25/23 16:42 12/25/23 17:00 12/25/23 18:00 Temperature Temperature Source Pulse Rate 88 91 84 Respiratory Rate 16 16 23 H Blood Pressure 121/83 H 142/61 H 119/71 Blood Pressure Mean 95 88 87 Pulse Ox 92 93 93 Oxygen Delivery Method Room Air 12/25/23 19:00 Temperature Temperature Source Pulse Rate 84 Respiratory Rate 18 Blood Pressure 114/57 L Blood Pressure Mean 76 Pulse Ox 98 Oxygen Delivery Method Room Air Positive well nourished General Appearance ED: NAD HEENT Reports moist mucous membranes normocephalic and atraumatic Eyes PERRL Resp normal respiratory effort and clear to auscultation bilaterally Cardio regular rate and regular rhythm GI non-tender GI Narrative: Ostomy bag present with 1 dark black stool noted within. No blood. Neuro CN's II-XII intact bilaterally Sensorium / Orientation: alert Psych mental status grossly normal Skin General Skin Exam: Negative for jaundice MDM MDM MDM Narrative Medical decision making narrative: Patient presenting with GI bleed. She has a history of this. She is on any blood thinners. Initial blood pressure was low. This was about 89/54. Patient typed and screened. Repeat blood pressure 102/54 without intervention. IV fluids were given. Differential includes upper GI bleed, lower GI bleed, dehydration, anemia, electro abnormalities. CBC will be obtained to assess white blood cell count, hemoglobin, platelets. CMP to assess renal function, electrolytes, liver function. Lipase to assess for pancreatitis. Hemoglobin is actually higher at 8.0. White blood cell count 5.9. Platelets are normal at 223. Renal function and electrolytes unremarkable. LFTs are normal. Lipase normal. Patient was typed and screened but she is normotensive and her hemoglobin has gone up so I will hold off on blood transfusion for now. I sent a page to [facility] and it does appear that the patient was accepted although I have not spoken with a physician. I and told there is a long wait for acceptance. Through the clinic recommended that we look for other options. Discussed all findings with the patient and the plan. We are currently waiting for [facility] to find other locations other than [facility] and if they can find a place for the patient that we will look elsewhere. [address] Guzmán from [facility] who accepted the patient. He will have IR see her. Discussed all pertinent lab work and findings per Dr. Morris. Patient transferred in stable condition. Impression: 1. GI bleed 2. Anemia Lab Data Labs: Laboratory Results - last 24 hr 12/25/23 15:50 WBC 5.9 RBC 3.45 L Hgb 8.0 L Hct 28.4 L MCV 82.3 MCH 23.2 L MCHC 28.2 L RDW Std Deviation 57.2 H RDW Coeff of Eloisa 19.1 H Plt Count 223 MPV 10.9 Immature Gran % (Auto) 0.700 Neut % (Auto) 78.2 H Lymph % (Auto) 9.8 L Davie % (Auto) 7.4 Eos % (Auto) 3.2 Baso % (Auto) 0.7 Absolute Neuts (auto) 4.7 Absolute Lymphs (auto) 0.58 L Nucleated RBC % 0 Sodium 141 Potassium 3.6 Chloride 104 Carbon Dioxide 33.0 H Anion Gap 4 L BUN 30 H Creatinine 0.92 Estim Creat Clear Calc 42.43 Est GFR (MDRD) Af Amer 77 Est GFR (MDRD) Non-Af 64 BUN/Creatinine Ratio 32.7 H Glucose 111 H Calcium 9.3 Total Bilirubin 0.30 AST 18 ALT 21 Alkaline Phosphatase 102 Total Protein 6.3 L Albumin 2.9 L Globulin 3.4 Albumin/Globulin Ratio 0.9 Lipase 50 Blood Type O POSITIVE Antibody Screen NEGATIVE Discharge Plan Triage Chief Complaint: GI Bleed ED Provider: Dominik Martell Dx/Rx/DC Orders Prescriptions: No Action gabapentin 300 mg capsule 300 mg PO QHS budesonide-formoterol [Symbicort] 160-4.5 mcg/actuation HFA aerosol inhaler 2 puff inhalation BID Qty: 3 2RF pantoprazole 40 mg tablet,delayed release (DR/EC) 40 mg PO DAILY Qty: 30 0RF lidocaine-prilocaine 2.5-2.5 % cream 1 applic topical ONCE PRN (Reason: PORT ACCESS) 30 Days Qty: 30 2RF prochlorperazine maleate 5 mg tablet 5 mg PO Q6H PRN (Reason: nausea and vomiting) albuterol sulfate 90 mcg/actuation HFA aerosol inhaler 2 puff inhalation Q4H PRN (Reason: SHORTNESS OF BREATH/WHEEZING ) Qty: 8.5 1RF montelukast 10 mg tablet 10 mg PO DAILY dicyclomine 10 mg capsule 10 mg PO BID mirtazapine 15 mg tablet 15 mg PO QHS ondansetron HCl 4 mg tablet 4 mg PO TID PRN (Reason: NAUSEA/VOMITING ) atorvastatin 10 mg tablet 10 mg PO QHS Qty: 90 3RF (DME) Hair prostethesis See Rx Instructions .Route .MEDSUPPLY Qty: 1 0RF Rx Instructions: As directed colestipol 1 gram tablet 1 g PO BID Qty: 60 1RF Primary Care Provider: Hernandez Mcqueen Referrals: Hernandez Mcqueen MD [Primary Care Provider] -
[2023-12-25] MEDS: 0.9% Normal Saline (1000mL) 1,000 ML 1000 ML IV (16:02)
[2023-12-25 16:04] LABS: Absolute Lymphocyte Count 0.58 X10^3/uL (0.83-4.51); Absolute Neutrophil Count 4.7 X10^3/uL (2.0-7.7); Basophil# 0.04 X10^3/uL; Basophil% 0.7 % (0-1); Eosinophil# 0.19 X10^3/uL; Eosinophils% 3.2 % (0-5); Hematocrit 28.4 % (37-47); Lymphocyte # 0.58 X10^3/ul (0.83-4.51); Lymphocyte % 9.8 % (19-41); Mean Corp Hgb Conc 28.2 g/dL (32-36); Mean Corpuscular Hgb 23.2 pg (27.0-32.0); Mean Corpuscular Volume 82.3 fL (81-99); Mean Platelet Vol. 10.9 fl (6.2-12.0); Monocyte# 0.44 X10^3/uL; Monocyte% 7.4 % (0-10); NRBC Flagged by Analyzer 0 % (0-5); Neutrophil # 4.65 X10^3/uL (2.7-7.7); Neutrophil % 78.2 % (47-70); POSITIVE DIFFERENTIAL YES; Platelet Count 223 K/mm3 (150-450); RBC Distribution Width CV 19.1 % (11.6-14.6); RBC Distribution Width SD 57.2 fl (35.1-43.9); Red Blood Count 3.45 M/mm3 (4.2-5.4); White Blood Count 5.9 K/mm3 (4.4-11.0)
[2023-12-25 16:21] LABS: ALB/GLOB Ratio 0.9 RATIO (0.9-2.4); AST(SGOT) 18 U/L (15-37); Alanine Aminotransfer ALT/SGPT 21 U/L (13-56); Albumin, Serum 2.9 g/dL (3.2-5.0); Alkaline Phosphatase 102 U/L (45-117); Anion Gap 4 (5-15); BUN 30 mg/dL (7-18); BUN/Creat Ratio 32.7 RATIO (10-20); Calcium,Total 9.3 mg/dL (8.5-10.1); Chloride 104 mmol/L (98-107); Creatinine, Serum 0.92 mg/dL (0.55-1.02); EST Glomerular Filtration Rate 64 mL/min (>60); Est Glom Filt Rate - Afr Amer 77 mL/min (>60); Estimated Creatinine Clearance 42.43 ml/min; Globulin 3.4 g/dL (2.2-4.2); Glucose 111 mg/dL (74-106); Lipase 50 U/L (13-75); Potassium 3.6 mmol/L (3.5-5.1); Protein, Total 6.3 g/dL (6.4-8.2); Sodium Level 141 mmol/L (136-145)
--- NOTE | 2023-12-25 19:12 | NURSING ---
ACCEPTED TO [facility] BY DR. RUEAD BUT THEY ASK WE LOOK AT OTHER LOCATIONS TO SEE IF THEY HAVE ANY BEDS OPEN SINCE THEY ARE WAIT LISTING THE PATIENT.
== END 2023-12-26 02:31 | disposition short-term general hospital (02) ==
PROVIDERS: Emergency Provider Student in an Organized Health Care Education/Training Program; PCP Family Medicine; Visit Provider Student in an Organized Health Care Education/Training Program
DX: K92.2 Gastrointestinal hemorrhage, unspecified (principal); J44.9 Chronic obstructive pulmonary disease, unspecified; D50.0 Iron deficiency anemia secondary to blood loss (chronic); K21.9 Gastro-esophageal reflux disease without esophagitis; E78.00 Pure hypercholesterolemia, unspecified; Z87.891 Personal history of nicotine dependence; Z79.899 Other long term (current) drug therapy; Z79.51 Long term (current) use of inhaled steroids; Z86.16 Personal history of COVID-19
CPT/HCPCS: 36591; 80053; 83690; 85014; 85018; 85025; 86850; 86900; 86901; 96360; 99284; J7030; A4216

== ENCOUNTER → 2024-01-09 | Outpatient (CLI) | payer MEDICARE, MEDICAID, SELFPAY ==
[2024-01-09 12:26] LABS: Absolute Lymphocyte Count 0.72 X10^3/uL (0.83-4.51); Absolute Neutrophil Count 5.4 X10^3/uL (2.0-7.7); Basophil# 0.03 X10^3/uL; Basophil% 0.4 % (0-1); Eosinophil# 0.07 X10^3/uL; Hematocrit 27.6 % (37-47); Hemoglobin 7.7 g/dL (12.0-15.0); Lymphocyte # 0.72 X10^3/ul (0.83-4.51); Lymphocyte % 10.5 % (19-41); Mean Corp Hgb Conc 27.9 g/dL (32-36); Mean Corpuscular Hgb 23.7 pg (27.0-32.0); Mean Corpuscular Volume 84.9 fL (81-99); Mean Platelet Vol. 11.2 fl (6.2-12.0); Monocyte# 0.62 X10^3/uL; Monocyte% 9.1 % (0-10); NRBC Flagged by Analyzer 0 % (0-5); Neutrophil # 5.35 X10^3/uL (2.7-7.7); Neutrophil % 78.3 % (47-70); Platelet Count 253 K/mm3 (150-450); RBC Distribution Width CV 19.5 % (11.6-14.6); RBC Distribution Width SD 61.7 fl (35.1-43.9); Red Blood Count 3.25 M/mm3 (4.2-5.4); White Blood Count 6.8 K/mm3 (4.4-11.0)
[2024-01-09 13:20] LABS: Anion Gap 7 (5-15); BUN 25 mg/dL (7-18); BUN/Creat Ratio 31.6 RATIO (10-20); Calcium,Total 9.4 mg/dL (8.5-10.1); Chloride 105 mmol/L (98-107); Creatinine, Serum 0.79 mg/dL (0.55-1.02); EST Glomerular Filtration Rate 75 mL/min (>60); Est Glom Filt Rate - Afr Amer 91 mL/min (>60); Glucose 85 mg/dL (74-106); Potassium 4.5 mmol/L (3.5-5.1); Sodium Level 141 mmol/L (136-145)
== END | disposition home or self-care (01) ==
LOC: MFPLAB 11:14
PROVIDERS: PCP Family Medicine; Visit Provider Family Medicine
DX: D64.9 Anemia, unspecified (principal)
CPT/HCPCS: 36415; 80048; 85025

== ENCOUNTER → 2024-01-13 | Outpatient (CLI) | payer MEDICARE, MEDICAID, SELFPAY ==
[2024-01-13 12:22] LABS: Hematocrit 25.7 % (37-47); Mean Corp Hgb Conc 27.2 g/dL (32-36); Mean Corpuscular Hgb 23.2 pg (27.0-32.0); Mean Corpuscular Volume 85.1 fL (81-99); Mean Platelet Vol. 11.3 fl (6.2-12.0); Platelet Count 254 K/mm3 (150-450); RBC Distribution Width CV 19.6 % (11.6-14.6); RBC Distribution Width SD 60.2 fl (35.1-43.9); Red Blood Count 3.02 M/mm3 (4.2-5.4); White Blood Count 6.3 K/mm3 (4.4-11.0)
== END | disposition home or self-care (01) ==
LOC: MFPLAB 11:06
PROVIDERS: PCP Family Medicine; Visit Provider Family Medicine
DX: D64.9 Anemia, unspecified (principal)
CPT/HCPCS: 36415; 85027

== ENCOUNTER 2024-01-14 10:25 | Outpatient (CLI) | payer MEDICARE, MEDICAID, SELFPAY | END 2024-01-14 10:26 | disposition home or self-care (01) | LOC: MEDOUTP 10:25 | PROVIDERS: PCP Family Medicine; Referring Provider Family Medicine; Visit Provider Family Medicine | DX: D64.9 Anemia, unspecified (principal) | CPT/HCPCS: 36591; 86850; 86900; 86901; 86920; 86922; A4216 ==

== ENCOUNTER 2024-01-15 07:50 | Outpatient (CLI) | payer MEDICARE, MEDICAID, SELFPAY ==
[2024-01-15] VITALS (7 sets, daily range): BP systolic 94–125; BP diastolic 42–61; PULSE 59–98; RESP 16–20; TEMP 36.2–36.8; O2SAT 95–97; BMI 23.3
[2024-01-15] MEDS: Furosemide 20 MG/2 ML VIAL IV (10:51)
== END 2024-01-15 07:51 | disposition home or self-care (01) ==
LOC: MEDOUTP 07:50
PROVIDERS: PCP Family Medicine; Referring Provider Family Medicine; Visit Provider Family Medicine
DX: D64.9 Anemia, unspecified (principal)
CPT/HCPCS: 36430; 86850; 86900; 86901; 86920; 86922; J7040; P9016; A4216; J1940

== ENCOUNTER → 2024-01-30 | Outpatient (CLI) | payer MEDICARE, MEDICAID, SELFPAY ==
[2024-01-30 12:08] LABS: Absolute Lymphocyte Count 0.67 X10^3/uL (0.83-4.51); Absolute Neutrophil Count 5.6 X10^3/uL (2.0-7.7); Basophil# 0.03 X10^3/uL; Basophil% 0.4 % (0-1); Eosinophil# 0.13 X10^3/uL; Eosinophils% 1.8 % (0-5); Hematocrit 34.6 % (37-47); Hemoglobin 9.9 g/dL (12.0-15.0); Lymphocyte # 0.67 X10^3/ul (0.83-4.51); Lymphocyte % 9.4 % (19-41); Mean Corp Hgb Conc 28.6 g/dL (32-36); Mean Corpuscular Hgb 24.4 pg (27.0-32.0); Mean Corpuscular Volume 85.2 fL (81-99); Mean Platelet Vol. 11.7 fl (6.2-12.0); Monocyte# 0.67 X10^3/uL; Monocyte% 9.4 % (0-10); NRBC Flagged by Analyzer 0 % (0-5); Neutrophil # 5.63 X10^3/uL (2.7-7.7); Neutrophil % 78.7 % (47-70); Platelet Count 264 K/mm3 (150-450); RBC Distribution Width SD 61.7 fl (35.1-43.9); Red Blood Count 4.06 M/mm3 (4.2-5.4); White Blood Count 7.2 K/mm3 (4.4-11.0)
[2024-01-30 12:53] LABS: ALB/GLOB Ratio 0.8 RATIO (0.9-2.4); AST(SGOT) 22 U/L (15-37); Alanine Aminotransfer ALT/SGPT 20 U/L (13-56); Albumin, Serum 2.9 g/dL (3.2-5.0); Alkaline Phosphatase 109 U/L (45-117); Anion Gap 7 (5-15); BUN 21 mg/dL (7-18); Calcium,Total 9.2 mg/dL (8.5-10.1); Chloride 105 mmol/L (98-107); Creatinine, Serum 0.72 mg/dL (0.55-1.02); EST Glomerular Filtration Rate 83 mL/min (>60); Est Glom Filt Rate - Afr Amer 101 mL/min (>60); Globulin 3.5 g/dL (2.2-4.2); Glucose 95 mg/dL (74-106); Potassium 3.9 mmol/L (3.5-5.1); Protein, Total 6.4 g/dL (6.4-8.2); Sodium Level 140 mmol/L (136-145)
== END | disposition home or self-care (01) ==
LOC: MFPLAB 09:52
PROVIDERS: PCP Family Medicine; Visit Provider Family Medicine
DX: D64.9 Anemia, unspecified (principal); M62.838 Other muscle spasm
CPT/HCPCS: 36415; 80053; 85025

== ENCOUNTER → 2024-02-13 | Outpatient (CLI) | payer MEDICARE, MEDICAID, SELFPAY ==
--- NOTE | 2024-02-13 06:32 | CT_ITS ---
INDICATION: MONITOR LUNG CA-IV ONLY EXAMINATION: CT CHEST AND ABDOMEN WITH CONTRAST - CT Chest And Abdomen W/ Contrast Injection TECHNIQUE: Helically acquired images were obtained of the chest and abdomen. A radiation dose optimization technique was used for this scan. IV Contrast dosage and agent: 100 cc of Isovue-300 Oral contrast: None. COMPARISON: Prior study dated: 11/05/2023 FINDINGS: ----Chest: LUNGS, PLEURA AND LARGE AIRWAYS: Persistent irregular mass in the posterior segment of the right upper lobe now measuring about 2.6 x 1.6 cm. The associated cavitary lesion has resolved. There is mild stranding extending slightly more anteriorly. Extensive emphysematous and bullous changes are again seen predominantly in the upper lobes with areas of fibrotic changes. Nodular changes in the right middle lobe unchanged.. Previously noted right pleural effusion has resolved. No pneumothorax. THYROID: No thyroid lesions. HEART AND PERICARDIUM: Heart size is normal. No pericardial effusion. Prominent main pulmonary artery. No evidence of central pulmonary embolism. VESSELS: Atherosclerotic calcifications of the thoracic aorta with tortuosity without evidence of dissection or aneurysm. MEDIASTINUM AND AZAEL: Stable small mediastinal and right hilar nodes. Esophagus is unremarkable. No hiatal hernia. BONES: Severe compression fracture of T5 and T11 unchanged. Moderate compression fracture of T8 slightly worsened previous exam. No demonstrated destructive bony process. ----Abdomen (without Pelvis): LIVER: Hepatomegaly. No focal mass. GALLBLADDER AND BILIARY TREE: No calcified gallstones. No gallbladder distension or wall edema. No intra- or extrahepatic biliary ductal dilation. PANCREAS: No focal cystic or solid mass. SPLEEN: Normal size without focal cystic or solid mass. ADRENAL GLANDS: No nodules. KIDNEYS AND URETERS: Normal renal size and position. No hydronephrosis. PERITONEUM: No ascites or free air. No other fluid collection. BOWEL: Fecal retention in the visualized sigmoid and descending colon. Left lower quadrant ostomy. No evidence of bowel obstruction. No stomach or bowel distension. No focal inflammatory change. LYMPH NODES: No enlarged mesenteric or retroperitoneal lymph nodes. VESSELS: Atherosclerotic calcifications of the abdominal aorta without evidence of aneurysm. ABDOMINAL WALL: No discrete abdominal wall hernia. BONES: Severe compression fracture of T11 vertebra is again seen. Mild compression of L2. CT/CT Chest AND Abd W/ Contrast IMPRESSION: 1. Right ovary left upper lobe mass slightly larger than the previous exam with resolved cavitary lesion. 2. Resolved right pleural effusion. 3. Otherwise no significant change since previous exam. 4. Hepatomegaly. Electronically Signed: Leandro Redmond MD at 10:21 EDT ,
[2024-02-13] MEDS: 0.9% Saline Lock 10 ML Syringe IV (07:20)
== END | disposition home or self-care (01) ==
LOC: CT 06:31
PROVIDERS: PCP Family Medicine; Referring Provider Internal Medicine Medical Oncology; Visit Provider Internal Medicine Medical Oncology
DX: C34.11 Malignant neoplasm of upper lobe, right bronchus or lung (principal)
CPT/HCPCS: 71260; 74160; Q9967; A4216

== ENCOUNTER 2024-03-02 23:30 | Inpatient (IN) | payer MEDICARE, MEDICAID, SELFPAY ==
[2024-03-02 23:32] VITALS: BP 93/59; PULSE 84; RESP 20; TEMP 36.6; O2SAT 97; BMI 24.0
[2024-03-03] VITALS (13 sets, daily range): BP systolic 106–142; BP diastolic 57–77; PULSE 76–93; RESP 16–24; TEMP 36.1–36.6; O2SAT 92–100; BMI 23.3
--- NOTE | 2024-03-03 00:12 | EKG12_ITS ---
Test Reason : DYSRHYTHMIA Blood Pressure : / mmHG Vent. Rate : 078 BPM Atrial Rate : 078 BPM P-R Int : 164 ms QRS Dur : 084 ms QT Int : 402 ms P-R-T Axes : 059 032 089 degrees QTc Int : 458 ms Normal sinus rhythm ST & T wave abnormality, consider anterior ischemia Abnormal ECG Confirmed by Jeison Thompson ([id number]), editor magazine FRANCESCA WINTERS ([id number]) on 03/03/2024 10:04:16 AM Referred By: Confirmed By:Jeison Thompson
--- NOTE | 2024-03-03 00:14 | EX.ED.DYSGE1 ---
HPI History of Present Illness Chief Complaint: Weakness Informant: patient and spouse/S.O. Narrative Narrative: Patient states she has been having black tarry stools in her colostomy bag for the last 6 months or more and has lung cancer, she did have some chemotherapy and radiation but holding off lately because of the chronic blood loss anemia. She is followed with GI and had EGD/colonoscopy at the beginning of this year, and following with oncology Dr. Bryant, which is all today and her blood counts been going down, hemoglobin 6.4 today. However she was not symptomatic until later today. Very weak, lightheaded with standing and walking, near syncopal couple times but did not have any syncopal episodes. No chest pain or dyspnea even with exertion. She has some nausea and bloating but no abdominal pain. No bright red blood per rectum or vomiting. PFSH [facility] Medical History Alopecia Arthritis Asthma Back pain Benign neoplasm of colon Cancer Cancer related pain Cardiology follow-up encounter Chronic constipation Contact with and (suspected) exposure to other viral communicable diseases COPD (chronic obstructive pulmonary disease) COVID-19 Easy bruising Encounter for education Essential hypertension Fatigue Former smoker Gastric reflux Generalized weakness High cholesterol History of echocardiogram History of edema History of irregular heartbeat History of stress test Hyperlipidemia Hypertension Hypokalemia Mild aortic stenosis Nicotine dependence Pneumonia Restless legs Shortness of breath on exertion Wears dentures Wears glasses Home Medications atorvastatin 10 mg tablet 10 mg PO QHS CHOLESTEROL #90 tabs 04/17/21 [Rx Last Taken 08/20/23] Hair prostethesis #1 ea 01/17/23 [Rx Last Taken Unknown] gabapentin 300 mg capsule 300 mg PO QHS NERVE PAIN 03/18/23 [History Last Taken 08/20/23] colestipol 1 gram tablet 1 g PO BID CHOLESTEROL #60 tabs 04/16/23 [Rx Last Taken 08/21/23] pantoprazole 40 mg tablet,delayed release 40 mg PO DAILY ACID REFLUX #30 tabs 07/25/23 [Rx Last Taken 08/21/23] dicyclomine 10 mg capsule 10 mg PO BID IRRITABLE BOWELS 08/21/23 [History Last Taken 08/21/23] lidocaine-prilocaine 2.5 %-2.5 % topical cream 1 applic topical ONCE PRN PORT ACCESS 30 days #30 grams 08/21/23 [Rx Last Taken Unknown] mirtazapine 15 mg tablet 15 mg PO QHS DEPRESSION 08/21/23 [History Last Taken 08/20/23] prochlorperazine maleate 5 mg tablet 5 mg PO Q6H PRN nausea and vomiting 11/20/23 [History Last Taken Unknown] albuterol sulfate 2.5 mg/3 mL (0.083 %) solution for nebulization 2.5 mg (3 mL) inhalation Q4-6H PRN shortness of breath or wheezing #180 mL 02/24/24 [Rx Last Taken Unknown] albuterol sulfate 90 mcg/actuation aerosol inhaler 2 puff inhalation Q4H PRN SHORTNESS OF BREATH/WHEEZING #8.5 grams 02/24/24 [Rx Last Taken Unknown] budesonide-formoterol HFA 160 mcg-4.5 mcg/actuation aerosol inhaler (Symbicort) 2 puff inhalation BID COPD #3 device 02/24/24 [Rx Last Taken Unknown] latanoprost 0.005 % eye drops 2 drp ophthalmic (eye) DAILY 02/24/24 [History Last Taken Unknown] montelukast 10 mg tablet 10 mg PO DAILY ALLERGIES #90 tabs 02/24/24 [Rx Last Taken Unknown] ondansetron HCl 8 mg tablet 8 mg PO TID PRN nausea and vomiting 02/24/24 [History Last Taken Unknown] tizanidine 4 mg tablet 4 mg PO QHS 02/24/24 [History Last Taken Unknown] Allergy/AdvReac Type Severity Reaction Status Date / Time watermelon Allergy Intermediate Hives Verified 03/02/24 23:38 Family History Father Cancer spinal Mother Alzheimer's disease Brother Pacemaker Surgical History History of amputation of finger of right hand History of appendectomy History of breast surgery History of cataract extraction History of creation of ostomy History of cystoscopy History of D&C History of hysterectomy History of toe surgery History of tonsillectomy Hx of colonoscopy Status post Eleno procedure Social History household members: spouse pets and animals: Yes (dogs) Smoking Status: Former smoker how long ago did patient quit smokin alcohol intake: former substance use type: does not use ROS ROS ED Constitutional Constitutional ED: Reports fatigue and weakness; Denies chills or fever(s) Eyes Eyes: Denies change in vision or diplopia ENT ENT ED: Denies rhinorrhea or sore throat Cardiovascular Cardiovascular: Denies chest pain or palpitations Respiratory/Chest Respiratory/Chest: Reports cough; Denies dyspnea or sputum Gastrointestinal Gastrointestinal: Reports bloating, melena and nausea; Denies abdominal pain, diarrhea or vomiting Genitourinary Genitourinary ED: Denies dysuria or hematuria Musculoskeletal Musculoskeletal: Denies back pain or neck pain Integumentary Denies abscess or rash Neurologic Neurologic: Denies headache(s), paresthesias or weakness Psychiatric Psychiatric: Denies anxiety or suicidal thoughts EXAM Physical Exam Const Vital Signs: 03/02/24 23:32 03/03/24 01:18 03/03/24 01:55 Temperature 97.8 F 97.5 F L Temperature Source Oral Temporal Pulse Rate 84 81 82 Respiratory Rate 20 H 24 H 16 Blood Pressure 93/59 L 125/68 H 112/68 Blood Pressure Mean 70 87 82 Blood Pressure Source Monitor Blood Pressure Position Supine Blood Pressure Location Right Arm Pulse Ox 97 100 97 Oxygen Delivery Method Room Air Nasal Cannula Nasal Cannula Oxygen Flow Rate (L/min) 1 1 Positive well nourished and well developed Constitutional Narrative: Appears weak but alert General Appearance ED: well developed, NAD and pallor HEENT Reports dry mucous membranes normocephalic and atraumatic Mouth ED: Yes dry mucous membranes Mouth: dry mucous membranes Eyes PERRL and EOMs intact bilaterally Neck full ROM and supple Resp normal respiratory effort and clear to auscultation bilaterally Cardio regular rate, regular rhythm and no murmurs Rate: Negative for tachycardic GI non-tender GI Narrative: Mildly distended, soft. Colostomy site looks healthy, there is firm black stool within the bag. Auscultation: normoactive bowel sounds Palpation: soft Back/Spine no CVA tenderness General Back: other FROM Extremity normal to inspection General Extremety ED: Negative for edema, pulses abnormal or tenderness General Extremity: Negative for edema or pulses abnormal Neuro oriented x3, CN's II-XII intact bilaterally and no sensory deficits noted Sensorium / Orientation: awake and alert Motor Exam: general weakness Psych mental status grossly normal Skin no rashes or lesions noted and no wounds General Skin Exam: pallor MDM MDM MDM Narrative Medical decision making narrative: Patient has had blood transfusions before and consents to another. She was typed and crossed for 2 units after we discussed pros and cons, due to her symptoms and presenting with hypotension. I reviewed recent labs, her hemoglobin was 6.4 about 16 hours ago. I am repeating that, and I also reviewed EGD and colonoscopy from October of this year, Dr. Morris. The EGD showed erythematous mucosa in the antrum without active signs of bleeding, and there were no signs of bleeding sources in the colon. Hemoglobin down to 5.7 now. Blood pressure better with IV fluids, last systolic blood pressure 125. Patient doing well clinically at rest. I do not think she needs emergent EGD, I think this is an acute on chronic issue without active hemorrhage. She is not anticoagulated. She is on daily pantoprazole, I gave her a bolus of 80 mg IV here. Discussed with hospitalist asked me to speak with Dr. Morris which I did. He states given the source of her bleeding and the acuity at this time, he recommends transferring the patient to a facility that can perform IR-mediated coiling of vessels if needed, since he will not be able to get to the source of the bleeding urgently/emergently with the scope as previously proven. When I discussed this with the patient, she states she is scheduled for a study that sounds similar to this at [facility] later today at noon. She states they were planning to go up with balloons. After discussing with [facility], she had a balloon enteroscopy scheduled which they only do at [facility]. The [facility] accepts her, however they have a long waiting list and will likely take days for her to get a bed. Therefore she will need to be admitted locally for right now which I think is reasonable since she is clinically and hemodynamically stable at this time. History & Record Review Additional record(s) reviewed:: Prior outpatient record and Prior labs Lab Data Attestation: I reviewed the patient's lab results. Labs: Laboratory Results - last 24 hr 03/02/24 03/03/24 23:42 00:35 WBC 8.0 RBC 2.30 L Hgb 5.7 L* Hct 19.6 L MCV 85.2 MCH 24.8 L MCHC 29.1 L RDW Std Deviation 62.3 H RDW Coeff of Eloisa 20.3 H Plt Count 197 MPV 11.6 Immature Gran % (Auto) 0.600 Neut % (Auto) 76.8 H Lymph % (Auto) 9.3 L Gillespie % (Auto) 10.3 H Eos % (Auto) 2.6 Baso % (Auto) 0.4 Absolute Neuts (auto) 6.1 Absolute Lymphs (auto) 0.74 L Nucleated RBC % 0 Diff Path Review May foll Hypochromasia 2+ Anisocytosis 2+ Stomatocytes 1+ Sodium 136 Potassium 4.1 Chloride 104 Carbon Dioxide 27.0 Anion Gap 5 BUN 28 H Creatinine 0.77 Estim Creat Clear Calc 48.06 Est GFR (MDRD) Af Amer 95 Est GFR (MDRD) Non-Af 78 BUN/Creatinine Ratio 36.6 H Glucose 132 H Calcium 8.5 Urine Color Yellow Urine Clarity Clear Urine pH 6.0 Ur Specific [place] 1.020 Urine Protein 15 H Urine Glucose (UA) Normal Urine Ketones Negative Urine Occult Blood Negative Urine Nitrite Negative Urine Bilirubin Negative Urine Urobilinogen Normal Ur Leukocyte Esterase Negative Urine RBC 0 SEEN Urine WBC 0 SEEN Ur Squamous Epith Cells 0 SEEN Urine Bacteria 0 SEEN Urine Mucus 0 SEEN Blood Type O POSITIVE Antibody Screen NEGATIVE Crossmatch See Detail Rhythm Strip Rhythm Strip: Sinus Rhythm Rate: 85 Ectopy: None EKG Initial EKG: Attestation: I personally reviewed and interpreted this EKG as follows: Interpretation: Sinus Rhythm, No Acute Injury Pattern and Non-Specific ST Changes (ant-sept) Prior EKG tracings: available for review Prior: Unchanged Management Discussion w/another healthcare provider: Hospitalist, Business Test Analyst (GI Friend) and Other (receiving facility [facility] Dr. Fletcher) Critical Care Time Critical Care Time: Yes Critical care time (excluding procedures): 30-74 minutes (36 min), Including time spent:, Discussing w/Patient &/or Family/Sustainable Agriculture Specialist, Discussing w/Consultants, Arranging Admission or Transfer and Performing Direct Patient Care at Bedside Discharge Plan Dx/Rx/DC Orders Clinical Impression: ABLA (acute blood loss anemia), NSCLC of upper lobe, Transient hypotension, Acute upper gastrointestinal bleeding Disposition Disposition: [facility] Discharge Date/Time: 03/03/24 06:19
[2024-03-03 00:40] LABS: Bacteria 0 SEEN /hpf (None Seen); Mucous, Urine 0 SEEN /hpf (<or=2+); Red Blood Cells-Urine 0 SEEN /hpf (0-5); Squamous Epithelial Cells - UA 0 SEEN /hpf (5-10); White Blood Cells 0 SEEN /hpf (0-5)
[2024-03-03 00:40] LABS: Anion Gap 5 (5-15); BUN 28 mg/dL (7-18); BUN/Creat Ratio 36.6 RATIO (10-20); Calcium,Total 8.5 mg/dL (8.5-10.1); Chloride 104 mmol/L (98-107); Creatinine, Serum 0.77 mg/dL (0.55-1.02); EST Glomerular Filtration Rate 78 mL/min (>60); Est Glom Filt Rate - Afr Amer 95 mL/min (>60); Estimated Creatinine Clearance 48.06 ml/min; Glucose 132 mg/dL (74-106); Potassium 4.1 mmol/L (3.5-5.1); Sodium Level 136 mmol/L (136-145)
[2024-03-03 00:42] LABS: Color, Urine Yellow (Yellow); Glucose, Dipstick Normal (Normal); Ketone-Dipstick Negative (Negative); Leukocyte Esterase-Dipstick Negative /ul (Negative); Nitrite-Dipstick Negative (Negative); Occult Blood-Urine Negative /ul (Negative); Protein-Dipstick 15 mg/dl (Negative); Urine Bilirubin Dipstick Negative (Negative); Urine Clarity Clear (Clear); Urine Urobilinogen Normal (Normal)
[2024-03-03] MEDS: Pantoprazole Sodium 80 MG in 0.9% Normal Saline (50mL Bag) 15 ML 420 MG IV BOLUS (00:47)
[2024-03-03] MEDS: 0.9% Normal Saline (1000mL) 1,000 ML 999 ML IV (00:47)
[2024-03-03] MEDS: Ondansetron 4 MG/2 ML Vial IV (01:00)
[2024-03-03 01:03] LABS: Absolute Lymphocyte Count 0.74 X10^3/uL (0.83-4.51); Absolute Neutrophil Count 6.1 X10^3/uL (2.0-7.7); Basophil# 0.03 X10^3/uL; Basophil% 0.4 % (0-1); Eosinophil# 0.21 X10^3/uL; Eosinophils% 2.6 % (0-5); Hematocrit 19.6 % (37-47); Lymphocyte # 0.74 X10^3/ul (0.83-4.51); Lymphocyte % 9.3 % (19-41); Mean Corp Hgb Conc 29.1 g/dL (32-36); Mean Corpuscular Hgb 24.8 pg (27.0-32.0); Mean Corpuscular Volume 85.2 fL (81-99); Mean Platelet Vol. 11.6 fl (6.2-12.0); Monocyte# 0.82 X10^3/uL; Monocyte% 10.3 % (0-10); NRBC Flagged by Analyzer 0 % (0-5); Neutrophil # 6.14 X10^3/uL (2.7-7.7); Neutrophil % 76.8 % (47-70); POSITIVE COUNT YES; POSITIVE MORPHOLOGY YES; Platelet Count 197 K/mm3 (150-450); RBC Distribution Width CV 20.3 % (11.6-14.6); RBC Distribution Width SD 62.3 fl (35.1-43.9)
[2024-03-03 01:07] LABS: Differential Indicated SCAN CRITERIA MET; Hemoglobin 5.7 g/dL (12.0-15.0)
--- NOTE | 2024-03-03 01:43 | PCM.HP.STD ---
[facility] - General General Date of Admission: 03/03/24 Date of Service: 03/03/24 Chief Complaint: Worsening generalized weakness with black tarry stools in colostomy bag with low hemoglobin. [facility] Narrative JUAN HAWKINS, is a 74 F with a past medical history of essential hypertension, hyperlipidemia, osteoarthritis; with chronic back pain, chronic constipation, mild aortic stenosis, glaucoma, remote history of COVID-19, RLS, history of C. difficile colitis; s/p Eleno procedure with transverse colectomy due to ischemia, history of tobacco abuse; subsequent asthma/COPD, history of non-small cell carcinoma of upper lobe; on chemotherapy and radiation followed by Dr. Bryant of oncology, chronic blood loss anemia; with black tarry stools in her colostomy bag for the past 6 months with history of EGD and colonoscopy at the beginning of this year by Dr. Morris and GERD; already on Protonix who presents to [facility] ER complaining of worsening generalized weakness. Mrs. Wade reports she had a CBC on February 01, 2024 which revealed a critically low hemoglobin of 6.4 g/dL. Though she claims she was initially not symptomatic she became symptomatic later in the evening becoming very weak and lightheaded with standing and walking and had a near syncopal episode at least on 2 separate occasions. She denies niraj syncope, chest pain or dyspnea on exertion. She does admit to some nausea and bloating but she denies abdominal pain. She denies bright red blood per rectum or vomiting and she is currently on no anticoagulation or antiplatelet agents but she was to have a balloon endoscopy procedure done at [facility] at noon today. In the ER this admission she was noted to have a critically low hemoglobin of 5.7 g/dL with a blood pressure of 93/59 present on admission with a firm black stool in her colostomy bag and Hemoccult positive stools in ER suspicious for upper GI bleed with the ER physician then ordering 2 units of packed red blood cells in addition to a normal saline 1 L fluid bolus and she was then admitted to the ICU for ongoing care for status expected to be greater than 2 midnights. [facility] Medical History Alopecia Arthritis Asthma Back pain Benign neoplasm of colon Cancer Cancer related pain Cardiology follow-up encounter Chronic constipation Contact with and (suspected) exposure to other viral communicable diseases COPD (chronic obstructive pulmonary disease) COVID-19 Easy bruising Encounter for education Essential hypertension Fatigue Former smoker Gastric reflux Generalized weakness High cholesterol History of echocardiogram History of edema History of irregular heartbeat History of stress test Hyperlipidemia Hypertension Hypokalemia Mild aortic stenosis Nicotine dependence Pneumonia Restless legs Shortness of breath on exertion Wears dentures Wears glasses Home Medications atorvastatin 10 mg tablet 10 mg PO QHS CHOLESTEROL #90 tabs 04/17/21 [Rx Last Taken 08/20/23] Hair prostethesis #1 ea 01/17/23 [Rx Last Taken Unknown] gabapentin 300 mg capsule 300 mg PO QHS NERVE PAIN 03/18/23 [History Last Taken 08/20/23] colestipol 1 gram tablet 1 g PO BID CHOLESTEROL #60 tabs 04/16/23 [Rx Last Taken 08/21/23] pantoprazole 40 mg tablet,delayed release 40 mg PO DAILY ACID REFLUX #30 tabs 07/25/23 [Rx Last Taken 08/21/23] dicyclomine 10 mg capsule 10 mg PO BID IRRITABLE BOWELS 08/21/23 [History Last Taken 08/21/23] lidocaine-prilocaine 2.5 %-2.5 % topical cream 1 applic topical ONCE PRN PORT ACCESS 30 days #30 grams 08/21/23 [Rx Last Taken Unknown] mirtazapine 15 mg tablet 15 mg PO QHS DEPRESSION 08/21/23 [History Last Taken 08/20/23] prochlorperazine maleate 5 mg tablet 5 mg PO Q6H PRN nausea and vomiting 11/20/23 [History Last Taken Unknown] albuterol sulfate 2.5 mg/3 mL (0.083 %) solution for nebulization 2.5 mg (3 mL) inhalation Q4-6H PRN shortness of breath or wheezing #180 mL 02/24/24 [Rx Last Taken Unknown] albuterol sulfate 90 mcg/actuation aerosol inhaler 2 puff inhalation Q4H PRN SHORTNESS OF BREATH/WHEEZING #8.5 grams 02/24/24 [Rx Last Taken Unknown] budesonide-formoterol HFA 160 mcg-4.5 mcg/actuation aerosol inhaler (Symbicort) 2 puff inhalation BID COPD #3 device 02/24/24 [Rx Last Taken Unknown] latanoprost 0.005 % eye drops 2 drp ophthalmic (eye) DAILY 02/24/24 [History Last Taken Unknown] montelukast 10 mg tablet 10 mg PO DAILY ALLERGIES #90 tabs 02/24/24 [Rx Last Taken Unknown] ondansetron HCl 8 mg tablet 8 mg PO TID PRN nausea and vomiting 02/24/24 [History Last Taken Unknown] tizanidine 4 mg tablet 4 mg PO QHS 02/24/24 [History Last Taken Unknown] Allergy/AdvReac Type Severity Reaction Status Date / Time watermelon Allergy Intermediate Hives Verified 03/02/24 23:38 Family History Father Cancer spinal Mother Alzheimer's disease Brother Pacemaker Surgical History History of amputation of finger of right hand History of appendectomy History of breast surgery History of cataract extraction History of creation of ostomy History of cystoscopy History of D&C History of hysterectomy History of toe surgery History of tonsillectomy Hx of colonoscopy Status post Eleno procedure Social History household members: spouse pets and animals: Yes (dogs) Smoking Status: Former smoker how long ago did patient quit smokin alcohol intake: former substance use type: does not use ROS ROS Narrative Review of systems: General: Patient denies fever or chills. HENT: Denies headache, denies stuffy nose, denies sore throat EYES: Denies changes in vision or discharge from eyes. Resp: Denies cough, denies shortness of breath Cardiac: Patient admits to near syncope x 2 but she denies chest pain, heart racing or palpitations as per HPI. GI: Patient admits to nausea but denies abdominal pain or vomiting as per HPI. : Denies changes in urination Extremity: Denies swelling Musculoskeletal: Patient denies arthralgias or myalgias. Neuro: Patient denies headache, paresthesias or focal neurologic deficits. Heme: Patient admits to black stools in her colostomy bag for the past 6 months in spite of previous EGD and colonoscopy with critically low hemoglobin as per HPI. Skin: Denies rashes Psychiatric: No complaints voiced related uncontrolled depression or anxiety. Endocrine: No polyuria, polydipsia or polyphagia. The rest of the 14 point ROS was negative except for positives in HPI. Vital Signs Vital Signs Vital Signs: 03/02/24 23:32 03/03/24 01:18 Temperature 97.8 F Temperature Source Oral Pulse Rate 84 81 Respiratory Rate 20 H 24 H Blood Pressure 93/59 L 125/68 H Blood Pressure Mean 70 87 Pulse Ox 97 100 Oxygen Delivery Method Room Air Nasal Cannula Oxygen Flow Rate (L/min) 1 Weight Weight: 131 lb 9.855 oz Body Mass Index (BMI) 24.0 Physical Exam Const alert, oriented x3, no apparent distress and average body habitus Constitutional Narrative: Patient appears chronically ill. General Appearance: cooperative HEENT normocephalic, head/scalp atraumatic and hearing grossly normal bilaterally HEENT Narrative: Mucous membranes dry. Eyes PERRL and EOMs intact bilaterally Neck no lymphadenopathy and supple Resp normal respiratory effort, no retractions, no use of accessory muscles and clear to auscultation bilaterally Cardio regular rate and regular rhythm GI normal to inspection, nondistended, normoactive bowel sounds, soft to palpation and non-tender GI Narrative: Patient has colostomy in place with firm black stools noted and mild distention. Extremity normal to inspection and full ROM Skin Skin Narrative: Patient has evidence of pallor but no jaundice or rash. Neuro oriented x3, CN's II-XII intact bilaterally, moves all extremities and no focal motor deficits Sensorium / Orientation: awake, alert, oriented to person, oriented to place and oriented to time Speech: speech normal Psych affect normal Results Medical Records Data Attestation: I reviewed the patient's medical records Lab / Micro Data Attestation: I reviewed the patient's lab results. 03/02/24 23:42 03/02/24 23:42 Labs: Laboratory Results - last 24 hr 03/02/24 23:42: WBC 8.0, RBC 2.30 L, Hgb 5.7 L*, Hct 19.6 L, MCV 85.2, MCH 24.8 L, MCHC 29.1 L, RDW Std Deviation 62.3 H, RDW Coeff of Eloisa 20.3 H, Plt Count 197, MPV 11.6, Immature Gran % (Auto) 0.600, Neut % (Auto) 76.8 H, Lymph % (Auto) 9.3 L, [place] % (Auto) 10.3 H, Eos % (Auto) 2.6, Baso % (Auto) 0.4, Absolute Neuts (auto) 6.1, Absolute Lymphs (auto) 0.74 L, Nucleated RBC % 0, Sodium 136, Potassium 4.1, Chloride 104, Carbon Dioxide 27.0, Anion Gap 5, BUN 28 H, Creatinine 0.77, Estim Creat Clear Calc 48.06, Est GFR (MDRD) Af Amer 95, Est GFR (MDRD) Non-Af 78, BUN/Creatinine Ratio 36.6 H, Glucose 132 H, Calcium 8.5, Blood Type O POSITIVE, Antibody Screen NEGATIVE, Crossmatch See Detail 03/03/24 00:35: Urine Color Yellow, Urine Clarity Clear, Urine pH 6.0, Ur Specific [place] 1.020, Urine Protein 15 H, Urine Glucose (UA) Normal, Urine Ketones Negative, Urine Occult Blood Negative, Urine Nitrite Negative, Urine Bilirubin Negative, Urine Urobilinogen Normal, Ur Leukocyte Esterase Negative, Urine RBC 0 SEEN, Urine WBC 0 SEEN, Ur Squamous Epith Cells 0 SEEN, Urine Bacteria 0 SEEN, Urine Mucus 0 SEEN Micro: Microbiology 03/03/24 00:30 Stool Stool Occult Blood (BRITNI) - Final Occult Blood Positive Rhythm Strip Rhythm Strip: Sinus Rhythm Rate: 85 Ectopy: None Assessment & Plan Assessment/Plan (1) Acute upper gastrointestinal bleeding: (2) ABLA (acute blood loss anemia): (3) NSCLC of upper lobe: PLAN: Plan 1. Severe [id number] blood loss anemia requiring transfusion with worsening generalized weakness and near syncope x 2 - Admit to ICU. Keep n.p.o. and continue IV Protonix. Transfused 2 units of packed red blood cells and recheck CBC 2 hours after second transfusion is completed. Check nuclear medicine bleeding scan to help pinpoint source of bleeding. Finally, we will consult Dr. Morris of gastroenterology disease patient on rounds in the a.m. further recommendations without appreciated in advance. 2. History of non-small cell carcinoma of upper lobe; on chemotherapy and radiation followed by Dr. Bryant of oncology complicating #1 - Noted with evidence tumor is infiltrating her chest wall on the right. 3. History of C. difficile colitis; s/p Eleno procedure with transverse colectomy due to ischemia with black stools in her colostomy bag for the past 6 months with recent EGD/colonoscopy in October of this year adding to the pathology of #1 & #2 - Noted. 4. History of tobacco abuse; subsequent asthma/COPD - Stable with no evidence of flare at this time. Give as needed nebulizers. 5. Essential hypertension - Hold scheduled antihypertensives until source of bleeding has been identified and neutralized. 6. Hyperlipidemia - Resume statin when patient is safely able to tolerate oral intake. 7. Osteoarthritis; with chronic back pain - Noted. 8. Chronic constipation - Stable. 9. History of mild aortic stenosis - Noted. 10. Glaucoma - Resume eyedrops as previous. 11. Remote history of COVID-19 - Noted. 12. RLS - Stable. 13. DVT prophylaxis - SCD's only with suspected upper GI bleed outlined in #1. Total time: Approximately 75 minutes. Charges/Coding Visit Charges Inpatient E&M: 89466 Init Hosp L3
[2024-03-03 02:24] LABS: Anisocytosis 2+; Hypochromasia 2+; Stomatocyte 1+
[2024-03-03] MEDS: Pantoprazole Sodium 80 MG in 0.9% Normal Saline (100mL Bag) 80 ML 10 MG CONT INF (06:53)
[2024-03-03] MEDS: 0.9% Normal Saline (1000mL) 1,000 ML 50 ML IV (06:54)
[2024-03-03] MEDS: 0.9% Normal Saline (250mL Bag) 250 ML 15 ML IV (07:01)
--- NOTE | 2024-03-03 07:11 | PCM.PN.HOSP ---
Reason for Visit Reason for Visit: Weakness Objective Data Objective Data Vital Signs: Vital Signs Temp Pulse Resp BP Pulse Ox O2 Del Method O2 Flow Rate 97.8 F 91 24 H 135/65 H 93 Nasal Cannula 2 03/03/24 06:27 03/03/24 06:27 03/03/24 06:27 03/03/24 06:27 03/03/24 06:27 03/03/24 06:27 03/03/24 06:27 Oxygen Flow Rate (L/min) 2 Oxygen Delivery Method Nasal Cannula Weight: 57.8 kg Body Mass Index (BMI) 23.3 Intake & Output: Intake and Output for Last 24 Hours 03/01/24 03/02/24 03/03/24 23:59 23:59 23:59 Intake Total 1036 / 1036 Balance 1036 / 1036 Lab / Micro Data 03/02/24 23:42 03/02/24 23:42 Labs: Laboratory Results - last 24 hr 03/02/24 23:42: WBC 8.0, RBC 2.30 L, Hgb 5.7 L*, Hct 19.6 L, MCV 85.2, MCH 24.8 L, MCHC 29.1 L, RDW Std Deviation 62.3 H, RDW Coeff of Eloisa 20.3 H, Plt Count 197, MPV 11.6, Immature Gran % (Auto) 0.600, Neut % (Auto) 76.8 H, Lymph % (Auto) 9.3 L, [place] % (Auto) 10.3 H, Eos % (Auto) 2.6, Baso % (Auto) 0.4, Absolute Neuts (auto) 6.1, Absolute Lymphs (auto) 0.74 L, Nucleated RBC % 0, Diff Path Review May foll, Hypochromasia 2+, Anisocytosis 2+, Stomatocytes 1+, Sodium 136, Potassium 4.1, Chloride 104, Carbon Dioxide 27.0, Anion Gap 5, BUN 28 H, Creatinine 0.77, Estim Creat Clear Calc 48.06, Est GFR (MDRD) Af Amer 95, Est GFR (MDRD) Non-Af 78, BUN/Creatinine Ratio 36.6 H, Glucose 132 H, Calcium 8.5, Blood Type O POSITIVE, Antibody Screen NEGATIVE, Crossmatch See Detail 03/03/24 00:35: Urine Color Yellow, Urine Clarity Clear, Urine pH 6.0, Ur Specific [place] 1.020, Urine Protein 15 H, Urine Glucose (UA) Normal, Urine Ketones Negative, Urine Occult Blood Negative, Urine Nitrite Negative, Urine Bilirubin Negative, Urine Urobilinogen Normal, Ur Leukocyte Esterase Negative, Urine RBC 0 SEEN, Urine WBC 0 SEEN, Ur Squamous Epith Cells 0 SEEN, Urine Bacteria 0 SEEN, Urine Mucus 0 SEEN Micro: Microbiology 03/03/24 00:30 Stool Stool Occult Blood (BRITNI) - Final Occult Blood Positive Rhythm Strip Rhythm Strip: Sinus Rhythm Rate: 85 Ectopy: None Assessment & Plan Assessment/Plan PLAN: Plan Acute on chronic severe anemia secondary to iron deficiency -Highly suspect GI loss -Iron studies were done in late January and were consistent with iron deficiency -This has seemingly been an ongoing issue since July with no source found -Had EGD and colonoscopy done on November 27, 2023 with no identifiable source of bleeding noted -Has not yet had a capsule endoscopy -Hemoccult was again positive on presentation and patient had black tarry stools in her ostomy bag -Currently has an elevated BUN to serum creatinine ratio so I do suspect possible upper bleed -Continue Protonix drip for now -N.p.o. for possible EGD later today -Bleeding scan is pending -GI consultation is pending
--- NOTE | 2024-03-03 08:38 | PN.HOSP_ITS ---
Hospitalist Note Patient is a 74-year-old white female who presents emergency department [facility] on 03/02/2024 complaining of black tarry stools in her ostomy bag for about 6 months. She has a history of lung cancer and has done some chemotherapy and radiation previously but those are currently on hold due to her chronic blood loss anemia. She had an EGD and a colonoscopy done earlier this year on 11/27/2023. EGD showed normal esophagus, hiatal hernia, erythematous mucosa in the antrum which was biopsied and no gross lesions and to the second portion of the duodenum. Colonoscopy noted congested mucosa in the entire examined colon with stool in the transverse colon and cecum but a normal exam otherwise. On review of records it appears that she has been having issues with profound anemia since July 2023 at which time she was found to have a hemoglobin of 5.1. Her stool has been occult positive each time. It does not appear she has of yet had a capsule endoscopy to assess her small bowel however. Vital signs on presentation showed temperature 97.8, heart rate 84, blood pressure is 93/59 with a repeat at 125/68, respiratory rate 20 oxygen saturations are 97% room air. CBC on presentation showed normal white count but she had a hemoglobin of 6.4 that was normocytic in nature. Platelet count was normal. Her chemistry panel was unremarkable other than an elevated BUN to serum creatinine ratio at 28 BUN and a serum creatinine of 0.77. She had iron studies that were done recently on 02/17/2024 that were consistent with iron deficiency. Given her profound anemia she was admitted in the ICU and given 3 units packed red blood cells. A bleeding scan had been ordered and gastroenterology was consulted. Per ER documentation gastroenterology did recommend transfer to [facility]. Also, it was reported in the ER documentation that she had what appears to be a balloon enteroscopy scheduled for today at [facility]. She is anxious to get to this appointment understandably as her chemo and radiation have been on hold due to her ongoing bleeding. She asks that if we will be able to discharge her and sent her up there today and I indicated that from a medical standpoint she had severe anemia and we have her accepted at [facility] but I am unclear when a bed will be available. We were able to call [facility] and they did not think a bed would be available to the end of the week. The patient is anxious to get up there and get this procedure done so she is elected to leave AGAINST MEDICAL ADVICE and follow-up at [facility] today for outpatient balloon enteroscopy for further investigation into her ongoing chronic anemia.
[2024-03-03 14:55] LABS: Pathologist Review Reviewed
== END 2024-03-03 08:00 | disposition left against medical advice (07) | DRG 812 ==
LOC: ED 03-03 03:52 → ICU 03-03 05:04
PROVIDERS: Admitting Provider Internal Medicine; Emergency Provider Emergency Medicine; PCP Family Medicine; Visit Provider Internal Medicine
DX: D62 Acute posthemorrhagic anemia (principal); K92.2 Gastrointestinal hemorrhage, unspecified; C34.11 Malignant neoplasm of upper lobe, right bronchus or lung; I95.9 Hypotension, unspecified; J44.9 Chronic obstructive pulmonary disease, unspecified; Z93.3 Colostomy status; G25.81 Restless legs syndrome; I10 Essential (primary) hypertension; E78.00 Pure hypercholesterolemia, unspecified; M19.90 Unspecified osteoarthritis, unspecified site; K44.9 Diaphragmatic hernia without obstruction or gangrene; H40.9 Unspecified glaucoma; Z86.16 Personal history of COVID-19; Z92.21 Personal history of antineoplastic chemotherapy; Z92.3 Personal history of irradiation; Z87.891 Personal history of nicotine dependence
CPT/HCPCS: 80048; 81001; 82274; 85025; 86850; 86900; 86901; 86920; 93005; 99283; J7030; J7040; J7050; P9016; A4216; J2405; J3490

== ENCOUNTER → 2024-04-02 | Outpatient (CLI) | payer MEDICARE, MEDICAID, SELFPAY ==
--- NOTE | 2024-04-02 10:05 | RAD_ITS ---
INDICATION: KNEE PAIN EXAMINATION/TECHNIQUE: X-RAY - RIGHT XR Knee Complete 4 Views or More 4 VIEWS COMPARISON: Prior study dated: 05/02/2021 FINDINGS: SOFT TISSUES: No soft tissue swelling or gas. No radiopaque foreign body. BONES/JOINTS: No evidence of acute fracture or subluxation. Chondrocalcinosis of the lateral and to lesser extent medial compartments. Preservation of the joint space.. No sclerotic or destructive changes observed. RAD/Knee 4 or More Views IMPRESSION: Chondrocalcinosis. Electronically Signed: Leandro Redmond MD at 10:47 EDT ,
[2024-04-02 12:17] LABS: Absolute Lymphocyte Count 0.63 X10^3/uL (0.83-4.51); Absolute Neutrophil Count 3.4 X10^3/uL (2.0-7.7); Basophil# 0.03 X10^3/uL; Basophil% 0.6 % (0-1); Eosinophils% 4.2 % (0-5); Hematocrit 38.6 % (37-47); Hemoglobin 10.9 g/dL (12.0-15.0); Lymphocyte # 0.63 X10^3/ul (0.83-4.51); Lymphocyte % 13.3 % (19-41); Mean Corp Hgb Conc 28.2 g/dL (32-36); Mean Corpuscular Hgb 26.5 pg (27.0-32.0); Mean Corpuscular Volume 93.7 fL (81-99); Mean Platelet Vol. 10.9 fl (6.2-12.0); Monocyte# 0.38 X10^3/uL; Monocyte% 8.1 % (0-10); NRBC Flagged by Analyzer 0 % (0-5); Neutrophil # 3.44 X10^3/uL (2.7-7.7); POSITIVE MORPHOLOGY YES; Platelet Count 224 K/mm3 (150-450); RBC Distribution Width CV 25.3 % (11.6-14.6); RBC Distribution Width SD 86.9 fl (35.1-43.9); Red Blood Count 4.12 M/mm3 (4.2-5.4); White Blood Count 4.7 K/mm3 (4.4-11.0)
[2024-04-02 12:20] LABS: Differential Indicated SCAN CRITERIA MET
[2024-04-02 13:00] LABS: Anisocytosis 2+; Differential Comment SCANNED
== END | disposition home or self-care (01) ==
PROVIDERS: PCP Family Medicine; Referring Provider Family Medicine; Visit Provider Family Medicine
DX: M25.561 Pain in right knee (principal); D64.9 Anemia, unspecified
CPT/HCPCS: 36415; 73564; 85025

== ENCOUNTER 2024-04-20 10:54 | Emergency (ER) | payer MEDICARE, SELFPAY ==
[2024-04-20 10:55] VITALS: BP 132/80; PULSE 99; RESP 18; TEMP 36.2; O2SAT 95; BMI 22.6
[2024-04-20 11:26] VITALS: O2SAT 93
--- NOTE | 2024-04-20 11:29 | ED.VIS.DYS ---
HPI History of Present Illness Chief Complaint: Shortness of Breath Informant: patient Onset/Context/Timing Onset: Days Context: gradual Timing: Continuous Quality: Positive for Dyspnea on exertion Worsened by: - (Certain movements) Relieved by: - (Bending forward) Associated Symptoms cough, clear sputum and yellow sputum; Negative for rhinorrhea, post nasal drip, ear pain, fever, sore throat, chills, sweats, white sputum or green sputum Chest Pain: Positive for Dull Narrative Narrative: Patient presents with shortness of breath that has been getting worse over the past 2 days. Patient states it is gradually getting worse. Patient states she was told to come to the emergency department by her oncologist for possible blood clot. Patient has a history of lung cancer. Patient states her breathing is better when she leans forward and puts her hands on her knees. Patient states she has some pain that is worse with movement. Patient describes her pain as dull. Patient admits to a cough with some clear and occasional yellow sputum. Patient denies any fevers or chills. Patient denies any nausea or vomiting. [facility] Medical History Wears glasses Wears dentures Cancer Arthritis High cholesterol Easy bruising Restless legs Back pain Gastric reflux Former smoker Shortness of breath on exertion History of edema History of echocardiogram History of stress test Hypertension Cardiology follow-up encounter History of irregular heartbeat Encounter for education Cancer related pain COPD (chronic obstructive pulmonary disease) Fatigue Contact with and (suspected) exposure to other viral communicable diseases Generalized weakness Alopecia Hypokalemia Pneumonia COVID-19 Mild aortic stenosis Nicotine dependence Chronic constipation Essential hypertension Hyperlipidemia Benign neoplasm of colon Asthma Home Medications ?Medication ?Instructions ?Recorded ?Last Taken ?Type atorvastatin 10 mg tablet 10 mg PO QHS CHOLESTEROL #90 tabs 04/17/21 08/20/23 Rx Hair prostethesis #1 ea 01/17/23 Unknown Rx gabapentin 300 mg capsule 300 mg PO QHS NERVE PAIN 03/18/23 08/20/23 History colestipol 1 gram tablet 1 g PO BID CHOLESTEROL #60 tabs 04/16/23 08/21/23 Rx pantoprazole 40 mg tablet,delayed 40 mg PO DAILY ACID REFLUX #30 tabs 07/25/23 08/21/23 Rx release dicyclomine 10 mg capsule 10 mg PO BID IRRITABLE BOWELS 08/21/23 08/21/23 History lidocaine-prilocaine 2.5 %-2.5 % 1 applic topical ONCE PRN PORT 08/21/23 Unknown Rx topical cream ACCESS 30 days #30 grams mirtazapine 15 mg tablet 15 mg PO QHS DEPRESSION 08/21/23 08/20/23 History prochlorperazine maleate 5 mg 5 mg PO Q6H PRN nausea and vomiting 11/20/23 Unknown History tablet albuterol sulfate 2.5 mg/3 mL 2.5 mg (3 mL) inhalation Q4-6H PRN 02/24/24 Unknown Rx (0.083 %) solution for nebulization shortness of breath or wheezing #180 mL albuterol sulfate 90 mcg/actuation 2 puff inhalation Q4H PRN 02/24/24 Unknown Rx aerosol inhaler SHORTNESS OF BREATH/WHEEZING #8.5 grams budesonide-formoterol HFA 160 2 puff inhalation BID COPD #3 02/24/24 Unknown Rx mcg-4.5 mcg/actuation aerosol device inhaler (Symbicort) latanoprost 0.005 % eye drops 2 drp ophthalmic (eye) DAILY 02/24/24 Unknown History montelukast 10 mg tablet 10 mg PO DAILY ALLERGIES #90 tabs 02/24/24 Unknown Rx ondansetron HCl 8 mg tablet 8 mg PO TID PRN nausea and vomiting 02/24/24 Unknown History tizanidine 4 mg tablet 4 mg PO QHS 02/24/24 Unknown History Allergy/AdvReac Type Severity Reaction Status Date / Time watermelon Allergy Intermediate Hives Verified 04/20/24 10:55 Family History Father Cancer spinal Mother Alzheimer's disease Brother Pacemaker Surgical History Hx of colonoscopy History of creation of ostomy Status post [place] procedure History of cystoscopy History of amputation of finger of right hand History of toe surgery History of cataract extraction History of breast surgery History of D&C History of tonsillectomy History of appendectomy History of hysterectomy Social History household members: spouse pets and animals: Yes (dogs) Smoking Status: Former smoker how long ago did patient quit smokin alcohol intake: former substance use type: does not use ROS ROS ED Constitutional Constitutional ED: Denies chills or fever(s) Eyes Eyes: Denies blurry vision or change in vision ENT ENT ED: Denies rhinorrhea or sore throat Cardiovascular Cardiovascular: Reports chest pain; Denies palpitations Respiratory/Chest Respiratory/Chest: Reports cough and dyspnea Gastrointestinal Gastrointestinal: Denies nausea or vomiting Genitourinary Genitourinary ED: Denies dysuria or hematuria Musculoskeletal Musculoskeletal: Denies back pain or neck pain Integumentary Denies abscess or rash Neurologic Neurologic: Denies headache(s) or weakness Allergic/Immunologic Allergic/Immunologic ED: Denies mouth swelling or urticaria EXAM Physical Exam Const Vital Signs: 04/20/24 10:55 04/20/24 11:26 04/20/24 12:55 Temperature 97.1 F L Temperature Source Temporal Pulse Rate 99 83 Respiratory Rate 18 16 Respiratory Effort Normal Respiratory Depth Normal Respiratory Pattern Normal Blood Pressure 132/80 H 129/74 H Blood Pressure Mean 97 92 Pulse Ox 95 94 Oxygen Delivery Method Room Air Room Air 04/20/24 14:00 04/20/24 14:42 Temperature Temperature Source Pulse Rate 81 87 Respiratory Rate 16 13 Respiratory Effort Respiratory Depth Respiratory Pattern Normal Blood Pressure 131/75 H Blood Pressure Mean 93 Pulse Ox 100 Oxygen Delivery Method Room Air Positive well nourished and well developed General Appearance ED: well developed and NAD HEENT Reports moist mucous membranes Neck supple and no JVD Resp normal respiratory effort and clear to auscultation bilaterally Cardio regular rate and regular rhythm GI non-tender and non-distended Neuro oriented x3, CN's II-XII intact bilaterally and no sensory deficits noted Santos Coma Scale: document GCS findings Spontaneous Obeys Commands Oriented 15 Sensorium / Orientation: alert Speech: speech normal Motor Exam: strength 5/5 throughout Psych mental status grossly normal MDM MDM MDM Narrative Medical decision making narrative: Differential diagnosis includes pulmonary embolism, cardiac dysrhythmia, cardiac ischemia, electrolyte abnormality, pneumonia, pneumothorax, COPD exacerbation, and anxiety. EKG will be obtained to assess for cardiac dysrhythmia and cardiac ischemia. CTA of the chest will be obtained to assess for pulmonary embolism and aortic dissection. CBC will be obtained to assess for leukocytosis and anemia. Basic metabolic profile will be obtained to assess for electrolyte abnormality and renal function. High-sensitivity troponin will be obtained to assess for cardiac ischemia. Lab Data Attestation: I reviewed the patient's lab results. Lab results narrative: CBC was reviewed. The hemoglobin was slightly low at 11.9. The remainder was within normal limits. Basic metabolic profile was reviewed and was within normal limits. High-sensitivity troponin was reviewed and was normal at 22. Labs: Laboratory Results - last 24 hr 04/20/24 11:20 WBC 6.5 RBC 4.28 Hgb 11.9 L Hct 39.7 MCV 92.8 MCH 27.8 MCHC 30.0 L RDW Std Deviation 78.8 H RDW Coeff of Eloisa 23.8 H Plt Count 198 MPV 11.2 Immature Gran % (Auto) 0.500 Neut % (Auto) 79.3 H Lymph % (Auto) 9.4 L [place] % (Auto) 7.7 Eos % (Auto) 2.5 Baso % (Auto) 0.6 Absolute Neuts (auto) 5.2 Absolute Lymphs (auto) 0.61 L Nucleated RBC % 0 Anisocytosis 1+ Sodium 139 Potassium 4.1 Chloride 104 Carbon Dioxide 30.0 Anion Gap 5 BUN 22 H Creatinine 0.60 Estim Creat Clear Calc 48.06 Est GFR (MDRD) Af Amer 125 Est GFR (MDRD) Non-Af 103 BUN/Creatinine Ratio 36.6 H Glucose 84 Calcium 9.4 Troponin I High Sens 22 Radiography CTA PE Study: No Evidence of PE and No Evidence of Dissection Diagnostic Testing: Clinical Impression(s) from Imaging Studies Chest CTA 04/20/24 11:56 IMPRESSION: Severe emphysematous changes worse in the upper lobes and on the right side. There is evidence of bronchiectasis with the postradiation fibrosis in the posterior aspect of the right upper lobe abutting the right major fissure as well as the superior segment of the right lower lobe. There is a spiculated 4.7 mm nodule in the anterior medial aspect of the lingular right middle lobe. A similar appearing nodule measuring 3.5 mm is seen in the right middle lobe. No evidence of pulmonary embolism. Electronically Signed: Juan Carlos Laguna MD at 13:31 EDT , CTA of the chest was obtained. There is no pulmonary embolism or aortic dissection noted. There is bronchiectasis and postradiation fibrosis in the right upper lobe and the superior segment of the right lower lobe. There is a spiculated 4.7 mm nodule in the anterior medial aspect of the lingular right middle lobe and a 3.5 mm seen in the right middle lobe. This interpreted by the radiologist was also independently reviewed by myself. EKG Initial EKG: Attestation: I personally reviewed and interpreted this EKG as follows: Interpretation: Sinus Rhythm (96) and No Acute Injury Pattern Comments: EKG was obtained. On my independent interpretation, it showed a normal sinus rhythm with occasional PACs with a rate of 96. MS interval, QRS interval, and QTc intervals were all normal. [place] was normal. There are no acute ST or T wave changes. Prior EKG tracings: available for review Prior: Unchanged (03/03/2024) Treatment and Re-Evaluation :: Patient was given a DuoNeb aerosol here. Patient was advised of her findings. Patient was instructed to continue using her inhalers and aerosols at home as needed. Patient was given a prescription for a short course of prednisone. Patient was given a prescription for a short course of [place] to take as needed for pain. Patient was instructed to follow-up with her primary care physician in 5 to 7 days. Patient was also instructed to follow-up with her oncologist as scheduled. Patient understood and was agreeable with the plan. All questions were answered. Discharge Plan Triage Chief Complaint: Shortness of Breath ED Provider: Jeff Whitley Dx/Rx/DC Orders Prescriptions: No Action gabapentin 300 mg capsule 300 mg PO QHS pantoprazole 40 mg tablet,delayed release (DR/EC) 40 mg PO DAILY Qty: 30 0RF lidocaine-prilocaine 2.5-2.5 % cream 1 applic topical ONCE PRN (Reason: PORT ACCESS) 30 Days Qty: 30 2RF prochlorperazine maleate 5 mg tablet 5 mg PO Q6H PRN (Reason: nausea and vomiting) latanoprost 0.005 % drops 2 drp ophthalmic (eye) DAILY tizanidine 4 mg tablet 4 mg PO QHS ondansetron HCl 8 mg tablet 8 mg PO TID PRN (Reason: nausea and vomiting) budesonide-formoterol [Symbicort] 160-4.5 mcg/actuation HFA aerosol inhaler 2 puff inhalation BID Qty: 3 3RF montelukast 10 mg tablet 10 mg PO DAILY Qty: 90 3RF albuterol sulfate 90 mcg/actuation HFA aerosol inhaler 2 puff inhalation Q4H PRN (Reason: SHORTNESS OF BREATH/WHEEZING ) Qty: 8.5 11RF albuterol sulfate 2.5 mg /3 mL (0.083 %) solution for nebulization 2.5 mg inhalation Q4-6H PRN (Reason: shortness of breath or wheezing) Qty: 180 11RF dicyclomine 10 mg capsule 10 mg PO BID mirtazapine 15 mg tablet 15 mg PO QHS atorvastatin 10 mg tablet 10 mg PO QHS Qty: 90 3RF (DME) Hair prostethesis See Rx Instructions .Route .MEDSUPPLY Qty: 1 0RF Rx Instructions: As directed colestipol 1 gram tablet 1 g PO BID Qty: 60 1RF Primary Care Provider: Hernandez Mcqueen Referrals: Hernandez Mcqueen MD [Primary Care Provider] - Print Language: Azeri
--- NOTE | 2024-04-20 11:56 | CT_ITS ---
STUDY: CTA CHEST REASON FOR EXAM: Female, 74 years old. Dyspnea. History of lung carcinoma. RADIATION DOSAGE (If Supplied By Facility): CTDIvol = ( 4.01 ) mGy, DLP = ( 171.18 ) mGycm TECHNIQUE: The examination was performed with the intravenous administration of IV 100mL Isovue-370. Post-processing of the angiographic images was performed, with multiplanar reformation and 3D reconstruction. Individualized dose optimization techniques were used for this CT. COMPARISON: Comparison is made with prior study dated June 11, 2023 and February 13, 2024. FINDINGS: A right-sided Port-A-Cath is seen with the tip in the superior vena cava. Normal enhancement of the main pulmonary artery and right and left pulmonary arteries. Normal enhancement of the bilateral peripheral pulmonary arteries. There is no demonstrated pulmonary embolism. There is evidence of a enlargement of the pulmonary arteries especially the main pulmonary artery suggestive of a pulmonary hypertension. Normal thoracic aorta and visualized great vessels. There is no demonstrated aortic dissection. Normal heart and pericardium. Normal mediastinum. Normal hilar regions. Normal visualized trachea and bronchi. Hyperinflation. Diffuse emphysematous changes with bullous formation worse in the upper lobes. Since prior study, there has been progression of the bronchiectasis with the irregular mass lesion in the posterolateral aspect of the right upper lobe abutting the right major fissure. This may represent post radiation fibrosis and scarring although an underlying neoplastic process cannot be excluded. There is also evidence of bronchiectasis and scarring in the superior segment of the right lower lobe. Normal pleura. Normal chest wall structures. There are degenerative changes of thoracic spine. Complete collapse of the upper mid and lower dorsal vertebrae. Nonobstructive left intrarenal calculi. CT/CTA Chest W/WO Contrast IMPRESSION: Severe emphysematous changes worse in the upper lobes and on the right side. There is evidence of bronchiectasis with the postradiation fibrosis in the posterior aspect of the right upper lobe abutting the right major fissure as well as the superior segment of the right lower lobe. There is a spiculated 4.7 mm nodule in the anterior medial aspect of the lingular right middle lobe. A similar appearing nodule measuring 3.5 mm is seen in the right middle lobe. No evidence of pulmonary embolism. Electronically Signed: Juan Carlos Laguna MD at 13:31 EDT ,
--- NOTE | 2024-04-20 11:56 | EKG12_ITS ---
Test Reason : SOB Blood Pressure : / mmHG Vent. Rate : 096 BPM Atrial Rate : 096 BPM P-R Int : 160 ms QRS Dur : 082 ms QT Int : 378 ms P-R-T Axes : 064 -08 089 degrees QTc Int : 477 ms Sinus rhythm with Premature atrial complexes Otherwise normal ECG Confirmed by Jeison Thompson ([id number]), assignment desk editor FRANCESCA WINTERS ([id number]) on 04/21/2024 8:06:08 AM Referred By: Confirmed By:Jeison Thompson
[2024-04-20] MEDS: 0.9% Normal Saline (1000mL) 1,000 ML 1000 ML IV (12:06)
[2024-04-20 12:21] LABS: Absolute Lymphocyte Count 0.61 X10^3/uL (0.83-4.51); Absolute Neutrophil Count 5.2 X10^3/uL (2.0-7.7); Basophil# 0.04 X10^3/uL; Basophil% 0.6 % (0-1); Eosinophil# 0.16 X10^3/uL; Eosinophils% 2.5 % (0-5); Hematocrit 39.7 % (37-47); Hemoglobin 11.9 g/dL (12.0-15.0); Lymphocyte # 0.61 X10^3/ul (0.83-4.51); Lymphocyte % 9.4 % (19-41); Mean Corpuscular Hgb 27.8 pg (27.0-32.0); Mean Corpuscular Volume 92.8 fL (81-99); Mean Platelet Vol. 11.2 fl (6.2-12.0); Monocyte% 7.7 % (0-10); NRBC Flagged by Analyzer 0 % (0-5); Neutrophil # 5.18 X10^3/uL (2.7-7.7); Neutrophil % 79.3 % (47-70); POSITIVE MORPHOLOGY YES; Platelet Count 198 K/mm3 (150-450); RBC Distribution Width CV 23.8 % (11.6-14.6); RBC Distribution Width SD 78.8 fl (35.1-43.9); Red Blood Count 4.28 M/mm3 (4.2-5.4); White Blood Count 6.5 K/mm3 (4.4-11.0)
[2024-04-20 12:34] LABS: Differential Indicated SCAN CRITERIA MET
[2024-04-20 12:50] LABS: Anion Gap 5 (5-15); BUN 22 mg/dL (7-18); BUN/Creat Ratio 36.6 RATIO (10-20); Calcium,Total 9.4 mg/dL (8.5-10.1); Chloride 104 mmol/L (98-107); EST Glomerular Filtration Rate 103 mL/min (>60); Est Glom Filt Rate - Afr Amer 125 mL/min (>60); Estimated Creatinine Clearance 48.06 ml/min; Glucose 84 mg/dL (74-106); Potassium 4.1 mmol/L (3.5-5.1); Sodium Level 139 mmol/L (136-145); Troponin-I HS 22 pg/mL (3.0-54.0)
[2024-04-20 12:55] VITALS: BP 129/74; PULSE 83; RESP 16; O2SAT 94
[2024-04-20 13:11] LABS: Anisocytosis 1+
[2024-04-20 14:00] VITALS: BP 131/75; PULSE 81; RESP 16; O2SAT 100
[2024-04-20] MEDS: Ipratropium/Albuterol Sulfate 3 ML AMPUL.NEB INHALATION (14:41)
[2024-04-20 14:42] VITALS: PULSE 87; RESP 13
[2024-04-20] MEDS: HYDROcodone Bitartrate/Apap 5/325 Tablet PO (14:55)
[2024-04-20] MEDS: predniSONE 20 MG Tablet 40 MG PO (15:05)
[2024-04-20 15:06] VITALS: BP 149/78; PULSE 89; RESP 22; TEMP 36.6; O2SAT 94
== END 2024-04-20 15:18 | disposition home or self-care (01) ==
PROVIDERS: Emergency Provider Emergency Medicine; PCP Family Medicine; Visit Provider Emergency Medicine
DX: R06.02 Shortness of breath (principal); J44.9 Chronic obstructive pulmonary disease, unspecified; Z87.891 Personal history of nicotine dependence; Z86.16 Personal history of COVID-19
CPT/HCPCS: 71275; 80048; 84484; 85025; 93005; 94640; 96360; 99285; J7030; Q9967; A4216

== ENCOUNTER → 2024-05-25 | Outpatient (CLI) | payer MEDICARE, SELFPAY ==
--- NOTE | 2024-05-25 12:35 | CT_ITS ---
STUDY: CT CHEST, ABDOMEN T PELVIS WITH CONTRAST REASON FOR EXAM: Female, 74 years old. NSCLC RADIATION DOSAGE (If Supplied By Facility): CTDIvol = ( 8.24 ) mGy, DLP = ( 560.31 ) mGycm TECHNIQUE: Transaxial imaging was performed following intravenous administration of Oral and amp; IV Readi-CAT and amp; 100mL Isovue-370. Multiplanar coronal and sagittal images were reformatted. Individualized dose optimization techniques were used for this CT. COMPARISON: Comparison is made with prior study dated February 13, 2024. FINDINGS: CHEST A right-sided Port-A-Cath is seen with the tip in superior vena cava. There is hyperinflation of the lungs consistent with chronic obstructive lung disease (COPD). Diffuse emphysematous changes with bullous formation. The previously seen heterogeneous mass in the posterior aspect of the right upper lobe abutting the right major fissure has increased in size. It presently measures 3.7 cm x 4.3 cm. Persistent bronchiectasis and scarring in the superior segment of the right lower. Small density is seen in the posterior aspect of the right mainstem bronchus before bifurcation most likely representing possible mucus. 2 adjacent nodules are once again seen in the right middle lobe. There are calcifications of the coronary arteries. Normal mediastinum. Normal hilar regions. There is prominence of the pulmonary hilar arteries without peripheral pulmonary vascular congestion, suggesting pulmonary hypertension. There is atherosclerotic calcification of the aortic arch with tortuosity and elongation of the aortic arch and descending thoracic aorta. Stable severe compression fractures of the T5 and T11 vertebrae. Moderate compression of the T8 vertebrae. ABDOMEN Normal liver. Normal gallbladder and extrahepatic biliary system. Normal spleen. Normal pancreas. Normal bilateral adrenal glands. Normal right kidney. Normal left kidney. Normal visualized stomach. Normal small intestine. A colostomy is seen in the left anterior abdomen. Moderate amount of fecal material is seen in the colon. There is diffuse atherosclerotic calcification of the abdominal aorta, without a demonstrated aneurysm. Normal inferior vena cava. Normal retroperitoneum. Normal abdominal wall. Severe compression of the T11 vertebrae and mild compression of the L2 vertebrae. PELVIS Normal urinary bladder. There is no pelvic fluid. There is no pelvic lymphadenopathy or mass lesion. There is diffuse atherosclerotic calcification of the pelvic arteries. CT/CT Chest, Abd, Pel w/Contrast IMPRESSION: Interval enlargement of the previously seen nodule in the posterior aspect of the right upper lobe. It presently measures 3.7 cm x 4.3 cm. The remainder of the examination is unchanged. Electronically Signed: Juan Carlos Laguna MD at 14:26 EDT ,
[2024-05-25] MEDS: 0.9% Saline Lock 10 ML Syringe IV (13:02)
== END | disposition home or self-care (01) ==
PROVIDERS: PCP Family Medicine; Referring Provider Nurse Practitioner Family; Visit Provider Nurse Practitioner Family
DX: C34.10 Malignant neoplasm of upper lobe, unspecified bronchus or lung (principal)
CPT/HCPCS: 71260; 74177; Q9967; A4216

== ENCOUNTER 2024-06-02 07:31 | Outpatient (CLI) | payer MEDICARE, MEDICAID, SELFPAY ==
[2024-06-02] VITALS (17 sets, daily range): BP systolic 126–188; BP diastolic 56–97; PULSE 77–93; RESP 18; TEMP 36.2; O2SAT 91–99; BMI 21.2
--- NOTE | 2024-06-02 | ASPIGT_PTH ---
PATIENT: JUAN HAWKINS LOC: CT U#:[id number] AGE/SX: 74/F ROOM: RE06/02/[address]: Dr. Scottie Bryant MD : 1950 BED: DIS: 06/02/2024 SPEC #: [id number] RECD: 06/02/24 09:30 STATUS: RAQUEL DAISY #: [id number] VERONICA: 06/02/24 00:[address]: Scottie Bryant DEPT: SURGICAL PATHOLOGY RECD BY: Yessy Le ENTERED: 06/02/24 10:39 SP TYPE: ASP RAD OTHR DR: Dr. Hernandez Mcqueen MD Tissues: Lung, NOS Procedures: FNA Specimen Adequacy Special Stain Group II Surgery Specimen Level IV Imprint (control) HEADER OPERATION: CT guided lung biopsy PRE-OP DIAGNOSIS: Right upper lobe lung nodule TISSUE SUBMITTED: 20 gauge x 5 cores MICROSCOPIC DIAGNOSIS Right upper lobe lung nodule, CT guided core biopsy: Non-small cell carcinoma, favor squamous cell carcinoma. See comment. SJ/ 06/03/2024 COMMENT The specimen is evaluated at the time of biopsy by Dr. Dunn. Immediate Evaluation = Malignant cells present derived from non-small cell carcinoma. Tumor shows extensive necrosis. Immunohistochemistry ([id number]) supports the above diagnosis. Please also make reference to previous specimen [id number] right lung mass, CT guided core biopsy with diagnosis of non-small cell carcinoma, favor squamous cell carcinoma. Molecular study of the tumor can be performed clinically indicated. Please notify the laboratory if they are needed. Case has been reviewed in consultation with Dr. Butts who concurs with the above diagnosis. IDC:AM MICROSCOPIC DESCRIPTION Slides are reviewed. GROSS DESCRIPTION Received in fixative is one container labeled with the patient's name and designated Right upper lobe lung. The specimen consists of multiple fragments of santana soft tissue that in aggregate measure 1.0 x 0.3 x 0.1 cm. The specimen is totally submitted in one cassette. Two touch imprints are prepared at the time of core biopsy. SJ/mr 06/02/2024 TC:0 CPT:85950,43861 ADDENDUM ADDENDUM ADDENDUM ADDENDUM ADDENDUM ADDENDUM ADDENDUM ADDENDUM ADDENDUM ADDENDUM 06/16/2024 08:56 ADDENDUM 06/25/2024 15:16 ADDENDUM 06/16/2024 08:56 ADDENDUM 06/16/2024 08:56 ADDENDUM 06/16/2024 08:56 ADDENDUM 06/16/2024 08:56 PD-L1 (KEYTRUDA) IMMUNOHISTOCHEMICAL ANALYSIS (NSCLC)FROM [email or web address] PD-L1 IMMUNOHISTOCHEMISTRY ANALYSIS: Test cancelled on block ([id number]) due to insufficient tumor cells. COMMENT: The biopsy contains sufficient (>100) viable cells. A positive control for each antibody has been reviewed and accepted. Please see complete report in e-chart or EMR ONKOS[facility] ADVANCED LUNG CANCER NGS REPORT FROM [email or web address] RESULT SUMMARY: Normal TUMOR TYPE: Non-small cell carcinoma CLINICAL INFORMATION: Right lung CT guided core biopsy showed non-small cell carcinoma, favor squamous cell carcinoma (Testing performed on #[id number]). HISTOPATHOLOGIC REVIEW: Tumor is present and is estimated to comprise >50% of nuclei in the sample. DETECTED GENOMIC ALTERATIONS: No mutations identified IMMUNOTHERAPY BIOMARKERS: TUMOR MUTATION BURDEN: LOW (1.6 mutations/ MB) MICROSATELLITE INSTABILITY: MSI NEGATIVE (1.59%) MISMATCH REPAIR (MMR) BY IHC WITH INTERPRETATION INTERPRETATION: No loss of nuclear expression of MMR proteins: Low protein of MSI-H. Please see complete report in e-chart or EMR
--- NOTE | 2024-06-02 | IMM_PTH ---
PATIENT: JUAN HAWKINS LOC: CT U#:[id number] AGE/SX: 74/F ROOM: RE06/02/[address]: Dr. Scottie Bryant MD : 1950 BED: DIS: 06/02/2024 SPEC #: [id number] RECD: 06/02/24 10:15 STATUS: RAQUEL REQ #: [id number] VERONICA: 06/02/24 00:[address]: Scottie Bryant DEPT: IMMUNOHISTOCHEMISTRY RECD BY: Vinny uQinn ENTERED: 06/02/24 10:16 SP TYPE: IMMUNO OTHR DR: Dr. Hernandez Mcqueen MD Tissues: Lung, NOS Procedures: RCC (add) NAPSIN A (add) CK20 (add) CK5-6 (add) CK7 (add) CK8 (add) HEP PAR (add) HI (add) TTF1 (add) Pankeratin (add) P40 (add) ER (initial) PHYSICIAN & INSTITUTION [address] [address] SPECIMEN INFORMATION: Tissue Source: Right lung Clinical Info: Right lung Specimen Number: [id number] CPT code: 49125,99079n94 METHODOLOGY: Deparaffinized sections of prefer/formalin-fixed tissue or PAP/DQ stained slides are incubated with monoclonal/polyclonal antibodies/oligonucleotide probes. Localization is made via biotin free immunoperoxidase method. Appropriate controls are performed and reacted as expected. Results on target cell population are indicated in the following table: RESULTS: ANTIBODY / CLONE RESULT ER (6F11) negative HI (1E2) negative AE1-3 (AE1/AE3/PCK26) positive CK7 (OV-TL12/30) negative CK8 (98msxvS44) positive CK20 (KS20.8) negative TTF-1 (8G7G3/1) negative Napsin A (Rabbit Polyclonal) negative HepPar (OCh1E5) negative RCC (PN-15) negative CK5-6 (D5 & 1684) positive P40 (BC28) positive These tests were developed and their performance characteristics determined by [facility]. They may not have been cleared or approved by the U.[place]. Food and Drug Administration. The FDA has determined that such clearance or approval is not necessary. The above immunohistochemical/dualISH markers are ordered and reviewed by the Pathologist. INTERPRETATION: Right lung, CT guided core biopsy: Non-small cell carcinoma, favor squamous cell carcinoma. SJ/mr 06/03/2024
[2024-06-02 07:55] LABS: Absolute Lymphocyte Count 0.96 X10^3/uL (0.83-4.51); Absolute Neutrophil Count 4.5 X10^3/uL (2.0-7.7); Basophil# 0.04 X10^3/uL; Basophil% 0.7 % (0-1); Eosinophil# 0.12 X10^3/uL; Hematocrit 44.1 % (37-47); Hemoglobin 13.3 g/dL (12.0-15.0); Lymphocyte # 0.96 X10^3/ul (0.83-4.51); Lymphocyte % 15.7 % (19-41); Mean Corp Hgb Conc 30.2 g/dL (32-36); Mean Corpuscular Hgb 27.5 pg (27.0-32.0); Mean Corpuscular Volume 91.3 fL (81-99); Mean Platelet Vol. 10.5 fl (6.2-12.0); Monocyte# 0.45 X10^3/uL; Monocyte% 7.4 % (0-10); NRBC Flagged by Analyzer 0 % (0-5); Neutrophil # 4.53 X10^3/uL (2.7-7.7); Neutrophil % 73.9 % (47-70); Platelet Count 222 K/mm3 (150-450); RBC Distribution Width CV 17.8 % (11.6-14.6); RBC Distribution Width SD 59.7 fl (35.1-43.9); Red Blood Count 4.83 M/mm3 (4.2-5.4); White Blood Count 6.1 K/mm3 (4.4-11.0)
[2024-06-02 08:08] LABS: International Normalized Ratio 0.9; Prothrombin Time (Protime)PT. 12.4 SECONDS (11.7-14.9)
[2024-06-02] MEDS: 0.9% Normal Saline (250mL Bag) 250 ML 15 ML IV (09:09)
[2024-06-02] MEDS: Midazolam 2 MG/2 ML Syringe IV ×2 (09:14→09:21)
[2024-06-02] MEDS: fentaNYL 100 MCG/2 ML Ampul IV (09:15)
[2024-06-02] MEDS: Lidocaine 2% (20 ml mdv) 20 ML Vial INFILT (09:24)
--- NOTE | 2024-06-02 09:40 | RAD_ITS ---
STUDY: X-RAY CHEST REASON FOR EXAM: Female, 74 years old. Immediate post lung biopsy -- Immediately post lung biopsy TECHNIQUE: AP inspiration and expiration views. COMPARISON: Comparison is made with prior study August 07, 2023. FINDINGS: The right-sided portacatheter is seen. The tip is in the midportion of the superior vena cava. EKG electrodes are seen. The patient is status post right upper lobe biopsy. RAD/Chest Insp/Exp 2 View IMPRESSION: No evidence of pneumothorax on the immediate post right upper lobe lung biopsy. Electronically Signed: Juan Carlos Laguna MD at 10:00 EDT ,
--- NOTE | 2024-06-02 09:41 | PCM.OP.PRO ---
Procedure Report Date of Procedure: 06/02/24 Assessment & Plan Assessment/Plan (1) NSCLC of upper lobe: PLAN: PROCEDURE: CT GUIDED CORE NEEDLE LUNG BIOPSY ORDERING PROVIDER: Dr. Bryant INDICATION: Female, 74 years old. Right upper lobe lung mass. PROVIDER: RODRIGO Pinon CONSENT: Written informed consent was obtained having explained the risks, benefits and alternatives in detail with the patient who accepted the risks and agreed to proceed. Laboratory review and clinical assessment was performed. PRE-PROCEDURE SEDATION ASSESSMENT: Current history and physical dictated by referring physician and reviewed. No clinical changes since date of exam. Patient has a Mallampati Score of Class 1 and ASA Class of 3. PROCEDURAL SEDATION PROTOCOL: The Drugs used were: 2 mg Versed, IV, and 25 mcg Fentanyl, IV. The sedation time was: 18 minutes, starting at 9:14 AM and terminated at 9:32 AM. The procedural sedation protocol was independently monitored by the department nurse. RADIATION DOSAGE (If Supplied By Facility): CTDIvol = 17.83 mGy, DLP = 215.31 mGycm Individualized dose optimization techniques were used for this CT. TECHNIQUE: The patient was placed in a prone position. A noncontrast CT was performed to localize the lesion in the right upper lobe. The skin surface was prepped and draped in a sterile fashion. 2% lidocaine was used for local anesthesia. Using CT guidance, a 20-gauge coaxial biopsy device was advanced to the periphery of the lesion. A total of 5 core specimens were obtained. Specimens were microscopically reviewed by pathology in the CT suite and placed in formalin solution. BioSentry tract sealant system was deployed at the biopsy site, and the biopsy needle was removed. A sterile occlusive dressing was applied to the biopsy site. The patient tolerated the procedure well. An immediate chest xray was ordered, per protocol. A negative biopsy does not exclude malignancy. Further imaging or clinical followup based on patient condition and degree of clinical suspicion for malignancy. Suggest rebiopsy, if biopsy results do not match with clinical scenario. IMPRESSION: 1. CT directed core needle biopsy of right upper lobe lung mass using CT image guidance with image documentation as described. Pathology results are pending. 2. Procedural Sedation protocol utilized with independent monitoring by the department nurse. Procedures Radiology Radiology CT Procedures: 42017 Biopsy Lung
--- NOTE | 2024-06-02 11:30 | RAD_ITS ---
STUDY: X-RAY CHEST REASON FOR EXAM: Female, 74 years old. 2 hour post lung biopsy -- 2 hours post lung biopsy TECHNIQUE: AP inspiration and expiration views. COMPARISON: Comparison is made with prior study done earlier today. FINDINGS: No evidence of pneumothorax following the right lung biopsy. A right-sided Port-A-Cath are seen with the tip in the midportion of the superior vena cava. RAD/Chest Insp/Exp 2 View IMPRESSION: No evidence of pneumothorax on the two-hour post right lung biopsy radiographs. Electronically Signed: Juan Carlos Laguna MD at 11:41 EDT ,
[2024-06-02] MEDS: 0.9% Saline Lock 10 ML Syringe IV (11:44)
== END 2024-06-02 23:59 | disposition home or self-care (01) ==
PROVIDERS: PCP Family Medicine; Referring Provider Internal Medicine Medical Oncology; Visit Provider Internal Medicine Medical Oncology
DX: Z01.818 Encounter for other preprocedural examination (principal); C34.11 Malignant neoplasm of upper lobe, right bronchus or lung; R91.8 Other nonspecific abnormal finding of lung field; R06.02 Shortness of breath
CPT/HCPCS: 32408; 36415; 71046; 77012; 85025; 85610; 85730; 88172; 88305; 88313; 88341; 88342; 99156; J7050; A4216; C2613

== ENCOUNTER → 2024-06-11 | Outpatient (CLI) | payer MEDICARE, MEDICAID, SELFPAY ==
--- NOTE | 2024-06-11 09:51 | RAD_ITS ---
STUDY: X-RAY - RIGHT KNEE REASON FOR EXAM: Female, 74 years old. PAIN TECHNIQUE: 4 views of the right knee. COMPARISON: None. FINDINGS: Normal visualized distal femur. Normal visualized proximal tibia and fibula. Normal proximal tibiofibular articulation. There is no demonstrated fracture. There is mild chondrocalcinosis of the medial and lateral menisci. Normal medial femorotibial compartment. Normal lateral femorotibial compartment. Normal patellofemoral articulation. There is a tiny joint effusion. There are atherosclerotic calcifications. RAD/Knee 4 or More Views IMPRESSION: Mild chondrocalcinosis of the medial and lateral menisci. Tiny joint effusion. Electronically Signed: Abdias Howard MD at 15:50 EDT ,
== END | disposition home or self-care (01) ==
LOC: MTRAD 09:50
PROVIDERS: PCP Family Medicine; Referring Provider Family Medicine; Visit Provider Family Medicine
DX: M25.561 Pain in right knee (principal)
CPT/HCPCS: 73564

== ENCOUNTER → 2024-09-11 | Outpatient (CLI) | payer MEDICARE, MEDICAID, SELFPAY ==
--- NOTE | 2024-09-11 13:37 | VDLE_ITS ---
Reason For Study: SWELLING RIGHT LEFT NON-VASCULAR anaechoic structure noted in RT GSV is normal. POP FOSSA space measuring 2.12 cm x 0.94 cm CFV is compressible, spontaneous, phasic, in transverse. competent, and demonstrates normal GSV is normal. augmentation. CFV is compressible, spontaneous, phasic, FV is compressible, spontaneous, phasic, competent and demonstrates normal competent and demonstrates normal augmentation. augmentation. FV is compressible, spontaneous, phasic, POP V is compressible, spontaneous, phasic, competent and demonstrates normal competent and demonstrates normal augmentation. augmentation. POP V is compressible, spontaneous, phasic, T/P Trunk is compressible. competent and demonstrates normal PTV is compressible. augmentation. LT PerV is compressible. T/P Trunk is compressible. PTV is compressible. RT PerV is compressible. Procedure This is a venous duplex using B-mode, color flow and spectral Doppler. Exam performed in department. A preliminary report was called and/or faxed to Mariah Healy [employer] @ [phone] @ 2 pm. VL/Venous Duplex US - Jorge Extrem Interpretation Summary Deep veins of the lower extremities are bilaterally patent and compressible seg mentally. There is no evidence of deep vein thrombosis on either side. Valvular competence appears in tact within the proximal deep venous systems bilaterally. The great saphenous veins appear bila terally patent and compressible segmentally. A non-vascular, hypoechoic structure is noted in the right popliteal space, measuring 2.12 cm x 0.94 cm. This probably represents a popliteal cyst. Clinical correlation is advised. Ordering Physician: Mariah Healy Referring Physician: Hernandez Mcqueen Performed By: Rashida Mejia, MARKOCS, RVT
== END | disposition home or self-care (01) ==
LOC: CVS 13:34
PROVIDERS: PCP Family Medicine; Referring Provider Nurse Practitioner Family; Visit Provider Nurse Practitioner Family
DX: R60.0 Localized edema (principal); Z91.89 Other specified personal risk factors, not elsewhere classified
CPT/HCPCS: 93970

== ENCOUNTER → 2024-10-01 | Outpatient (CLI) | payer MEDICARE, MEDICAID, SELFPAY ==
--- NOTE | 2024-10-01 06:32 | MRI_ITS ---
HISTORY: FRONTAL headaches RADIATING INTO TO TEMPLES X 3 MONS, metastatic NSCLC -- r/o brain mets. TECHNIQUE: Multiplanar and multisequence MR images of the brain were obtained before and after the intravenous administration of 10 cc Clariscan. 683 images. COMPARISON: 10/18/2022. FINDINGS: BRAIN PARENCHYMA: No enhancing lesion in the brain parenchyma. Mild foci of increased T2 FLAIR signal in the bilateral cerebral white matter again seen. No abnormal focus of restricted diffusion. No acute intracranial hemorrhage identified. CSF SPACES: Mild volume loss. No significant midline shift or other mass effect.No extra-axial fluid collection. VASCULAR SYSTEM: Major intracranial flow voids are maintained. PARANASAL SINUSES AND MASTOID AIR CELLS: No significant air fluid levels. OTHER: Bilateral lens resections. Left parotid nodules or lymph nodes measuring up to 9 mm long axis again seen. MRI/Brain W/WO Contrast IMPRESSION: No evidence of enhancing intracranial mass. No evidence for acute infarct. Mild chronic involutional and white matter changes. Small nodules or borderline enlarged left parotid lymph nodes, similar to prior. Electronically Signed: Leila Rodney MD at 9:13 EST ,
== END | disposition home or self-care (01) ==
PROVIDERS: PCP Family Medicine; Referring Provider Nurse Practitioner Family; Visit Provider Nurse Practitioner Family
DX: R51.9 Headache, unspecified (principal); C34.10 Malignant neoplasm of upper lobe, unspecified bronchus or lung
CPT/HCPCS: 70553; A9575

== ENCOUNTER → 2024-10-13 | Outpatient (CLI) | payer MEDICARE, MEDICAID, SELFPAY ==
--- NOTE | 2024-10-13 12:48 | CT_ITS ---
STUDY: CT CHEST, ABDOMEN T PELVIS WITH CONTRAST REASON FOR EXAM: Female, 74 years old. LUNG CA-IV ONLY RADIATION DOSAGE (If Supplied By Facility): CTDIvol = ( 7.31 ) mGy, DLP = ( 611.27 ) mGycm TECHNIQUE: Transaxial imaging was performed following intravenous administration of IV 100mL Isovue-300. Individualized dose optimization techniques were used for this CT. COMPARISON: 05/25/2024 FINDINGS: CHEST Right internal jugular chest port. Moderate emphysema. Interval decrease in the size of the mass in the posterior right upper lobe and lungs from 4 x 4 centimeters to 3.0 x 3.5 cm consistent with improved lung carcinoma. There is no demonstrated pleural abnormality. Normal heart and pericardium. Normal mediastinum. Normal hilar regions. There is prominence of the pulmonary hilar arteries without peripheral pulmonary vascular congestion, suggesting pulmonary hypertension. Normal aorta arch and descending thoracic aorta. Multiple chronic compression fractures of the thoracic spine with increased kyphosis. There is no demonstrated abnormality of the visualized upper abdomen. ABDOMEN The visualized lung bases are unremarkable. The visualized portions of the heart are within normal limits. Normal liver. Normal gallbladder and extrahepatic biliary system. Normal spleen. Normal pancreas. Normal bilateral adrenal glands. Normal right kidney. Normal left kidney. Normal visualized stomach. Normal small intestine. Status post resection of the descending colon with a left upper quadrant colostomy. There are surgical clips in the region of the appendix consistent with a prior appendectomy. There is diffuse atherosclerotic calcification of the abdominal aorta, without a demonstrated aneurysm. Normal inferior vena cava. Normal retroperitoneum. Normal abdominal wall. Multiple chronic compression fractures of lumbar spine. PELVIS Normal urinary bladder. Normal visualized small intestine. There are multiple colonic diverticula of the sigmoid colon consistent with chronic diverticulosis. There is no pelvic fluid. There is no pelvic lymphadenopathy or mass lesion. Normal visualized pelvic arteries. Normal abdominal wall. Normal osseous structures. CT/CT Chest, Abd, Pel w/Contrast IMPRESSION: Improved right upper lobe bronchogenic carcinoma. No CT evidence of metastatic disease. Status post left hemicolectomy with a left upper quadrant colostomy. Electronically Signed: Germán Dangelo MD at 13:50 EST ,
[2024-10-13] MEDS: 0.9 % NaCl (Sterile) Posiflush 10 mL IV (12:55)
[2024-10-13] MEDS: 0.9% Saline Lock 10 ML Syringe IV (13:10)
== END | disposition home or self-care (01) ==
LOC: CT 12:47
PROVIDERS: PCP Family Medicine; Referring Provider Internal Medicine Medical Oncology; Visit Provider Internal Medicine Medical Oncology
DX: C34.11 Malignant neoplasm of upper lobe, right bronchus or lung (principal)
CPT/HCPCS: 71260; 74177; Q9967; A4216

== ENCOUNTER 2024-10-15 10:43 | Emergency (ER) | payer MEDICARE, MEDICAID, SELFPAY ==
[2024-10-15 10:44] VITALS: BP 114/73; PULSE 87; RESP 14; TEMP 36.6; O2SAT 96; BMI 20.8
--- NOTE | 2024-10-15 11:17 | EX.ED.DYSGE1 ---
HPI <PHOEBE Brennan - Last Filed: 10/15/24 13:38> History of Present Illness Chief Complaint: Abd Pain Narrative Narrative: Patient is a 74-year-old female with history of lung cancer who is currently receiving immunotherapy, last time immunotherapy was administered via her port to the right chest was October 01, 2024. Over the last several weeks, patient has been having diarrhea through her colectomy. Patient states that she is changing the bag 6 times a day. This is abnormal for her. Denies any blood. Patient denies any fever or chills. Patient that she has some abdominal cramping. She sees Dr. Bryant, he recommended she come into the emergency department. Patient did have a CT scan which showed evidence of circumferential wall thickening of the right hemicolon. Suggestive of tight flatus also known as neutropenic enterocolitis. Patient [place] any fever chills. Patient [place] any nausea or vomiting. PFSH <PHOEBE Brennan - Last Filed: 10/15/24 13:38> [facility], [facility] Medical History Encounter for antineoplastic immunotherapy Headache At risk for deep venous thrombosis Leg edema Hematuria Anemia due to chronic blood loss Rash Wears glasses Wears dentures Cancer Arthritis High cholesterol Easy bruising Restless legs Back pain Gastric reflux Former smoker Shortness of breath on exertion History of edema History of echocardiogram History of stress test Hypertension Cardiology follow-up encounter History of irregular heartbeat Encounter for education Cancer related pain COPD (chronic obstructive pulmonary disease) Fatigue Contact with and (suspected) exposure to other viral communicable diseases Generalized weakness Alopecia Hypokalemia Pneumonia COVID-19 Mild aortic stenosis Nicotine dependence Chronic constipation Essential hypertension Hyperlipidemia Benign neoplasm of colon Asthma Home Medications ?Medication ?Instructions ?Recorded ?Last Taken ?Type atorvastatin 10 mg tablet 10 mg PO QHS CHOLESTEROL #90 tabs 04/17/21 08/20/23 Rx Hair prostethesis #1 ea 01/17/23 Unknown Rx gabapentin 300 mg capsule 300 mg PO QHS NERVE PAIN 03/18/23 08/20/23 History pantoprazole 40 mg tablet,delayed 40 mg PO DAILY ACID REFLUX #30 tabs 07/25/23 08/21/23 Rx release dicyclomine 10 mg capsule 10 mg PO BID IRRITABLE BOWELS 08/21/23 08/21/23 History lidocaine-prilocaine 2.5 %-2.5 % 1 applic topical ONCE PRN PORT 08/21/23 Unknown Rx topical cream ACCESS 30 days #30 grams mirtazapine 15 mg tablet 15 mg PO QHS DEPRESSION 08/21/23 08/20/23 History prochlorperazine maleate 5 mg 5 mg PO Q6H PRN nausea and vomiting 11/20/23 Unknown History tablet albuterol sulfate 2.5 mg/3 mL 2.5 mg (3 mL) inhalation Q4-6H PRN 02/24/24 Unknown Rx (0.083 %) solution for nebulization shortness of breath or wheezing #180 mL albuterol sulfate 90 mcg/actuation 2 puff inhalation Q4H PRN 02/24/24 Unknown Rx aerosol inhaler SHORTNESS OF BREATH/WHEEZING #8.5 grams budesonide-formoterol HFA 160 2 puff inhalation BID COPD #3 02/24/24 Unknown Rx mcg-4.5 mcg/actuation aerosol device inhaler (Symbicort) latanoprost 0.005 % eye drops 2 drp ophthalmic (eye) DAILY 02/24/24 Unknown History montelukast 10 mg tablet 10 mg PO DAILY ALLERGIES #90 tabs 02/24/24 Unknown Rx ondansetron HCl 8 mg tablet 8 mg PO TID PRN nausea and vomiting 02/24/24 Unknown History tizanidine 4 mg tablet 4 mg PO QHS 02/24/24 Unknown History acetaminophen 325 mg capsule 650 mg PO Q6H PRN pain 08/26/24 Unknown History diphenhydramine HCl 25 mg capsule 25 mg PO TID PRN itching #30 caps 09/30/24 Unknown Rx (Benadryl) vancomycin 125 mg capsule 125 mg PO Q6H 10 days #40 caps 10/15/24 Unknown Rx Allergy/AdvReac Type Severity Reaction Status Date / Time watermelon Allergy Intermediate Hives Verified 10/15/24 10:44 Family History Father Cancer spinal Mother Alzheimer's disease Brother Pacemaker Surgical History Hx of colonoscopy History of creation of ostomy Status post Eleno procedure History of cystoscopy History of amputation of finger of right hand History of toe surgery History of cataract extraction History of breast surgery History of D&C History of tonsillectomy History of appendectomy History of hysterectomy Social History household members: spouse pets and animals: Yes (dogs) Smoking Status: Former smoker how long ago did patient quit smokin alcohol intake: former substance use type: does not use ROS <PHOEBE Brennan - Last Filed: 10/15/24 13:38> ROS ED ROS Narrative Constitutional: Negative for fever, chills, weight loss, weakness Eyes: Negative for vision loss, vision change, double vision ENT: Negative for any sore throat, ear pain, congestion Cardiovascular: Negative for any chest pain, tightness, palpitations Respiratory: Negative for any cough, sputum production, hemoptysis, dyspnea, dyspnea on exertion, orthopnea Gastrointestinal: Negative for any nausea, vomiting, constipation, blood in stool, blood in vomit. Positive for abdominal pain, diarrhea : Negative for any urinary frequency, dysuria, retention, blood in urine Muscle skeletal: Negative for any neck pain, back pain Neurological: Negative for any headache, syncope, dizziness Skin: Negative for any rashes, itching, abrasions, lacerations Psychiatric: Negative for any depression, anxiety, stress, suicidal ideation, homicidal ideation Hematologic: Negative for any excessive bruising, easy bleeding EXAM <PHOEBE Brennan - Last Filed: 10/15/24 13:38> Physical Exam Narrative Exam Narrative: Vital signs reviewed. HEET: Head normocephalic atraumatic, TMs clear bilaterally. Posterior pharynx is clear, moist mucous membranes. Nares clear bilaterally. Neck: Supple with no lymphadenopathy or tenderness. No signs of meningismus. Cardiac: Regular rate and rhythm no murmurs gallops or rubs, equal peripheral pulses bilaterally. Respiratory: Lungs clear to auscultation bilaterally. No chest tenderness. Abdomen: Soft, nontender, nondistended. No abdominal bruit or pulsatile masses. No hepatosplenomegaly. Patient has a colectomy, stoma looks well-appearing. It is soft around the area, there is no evidence of any blood in the bag, the stool is brown in color, it is not complete liquid. Active bowel sounds in all quadrants. Negative for any peritoneal signs. Extremities: No peripheral edema, no signs of gross trauma or deformity. Active full range of motion of all extremities. Neuro: Cranial nerves II through XII intact, no focal neurological deficits. Skin: Clean dry and intact with no rash, purpura, petechiae, vesicles or pustules. Backs/flank: No CVA tenderness, no midline spinal tenderness, no deformity. Psych: Normal mood and affect. No SI, HI or acute psychosis. Const Vital Signs: 10/15/24 10:44 10/15/24 13:15 Temperature 98 F Temperature Source Temporal Pulse Rate 87 72 Respiratory Rate 14 16 Blood Pressure 114/73 161/92 H Blood Pressure Mean 86 115 Pulse Ox 96 94 Oxygen Delivery Method Room Air Positive cachectic General Appearance ED: cachectic Nutritional Appearance: cachectic <Dr. Vinay Travis MD - Last Filed: 10/15/24 12:04> Physical Exam Const Vital Signs: 10/15/24 10:44 10/15/24 13:15 Temperature 98 F Temperature Source Temporal Pulse Rate 87 72 Respiratory Rate 14 16 Blood Pressure 114/73 161/92 H Blood Pressure Mean 86 115 Pulse Ox 96 94 Oxygen Delivery Method Room Air MDM <PHOEBE Brennan - Last Filed: 10/15/24 13:38> MDM Lab Data Labs: Laboratory Results - last 24 hr 10/15/24 10/15/24 11:30 12:15 WBC 9.3 RBC 4.41 Hgb 11.7 L Hct 38.9 MCV 88.2 MCH 26.5 L MCHC 30.1 L RDW Std Deviation 65.0 H RDW Coeff of Eloisa 20.1 H Plt Count 295 MPV 10.2 Immature Gran % (Auto) 0.500 Neut % (Auto) 81.1 H Lymph % (Auto) 7.7 L [place] % (Auto) 5.8 Eos % (Auto) 4.3 Baso % (Auto) 0.6 Absolute Neuts (auto) 7.5 Absolute Lymphs (auto) 0.71 L Nucleated RBC % 0 Differential Comment SCANNED Platelet Estimate ADEQUATE Plt Morphology Comment LARGE Polychromasia 1+ Anisocytosis 2+ Ovalocytes 1+ Sodium 141 Potassium 3.7 Chloride 110 H Carbon Dioxide 28.0 Anion Gap 2 L BUN 16 Creatinine 0.47 L Estim Creat Clear Calc 48.06 Est GFR (MDRD) Af Amer 164 Est GFR (MDRD) Non-Af 136 BUN/Creatinine Ratio 33.8 H Glucose 86 Calcium 9.0 Total Bilirubin 0.40 AST 33 ALT 27 Alkaline Phosphatase 100 Total Protein 6.1 L Albumin 2.6 L Globulin 3.5 Albumin/Globulin Ratio 0.7 L Lipase 20 Urine Color Yellow Urine Clarity Sl. Cloudy Urine pH 6.0 Ur Specific [place] 1.020 Urine Protein 30 H Urine Glucose (UA) Normal Urine Ketones 5 H Urine Occult Blood 10 H Urine Nitrite Negative Urine Bilirubin Negative Urine Urobilinogen Normal Ur Leukocyte Esterase 25 H Urine RBC 0 SEEN Urine WBC 0-5 SEEN Ur Squamous Epith Cells 0-5 SEEN Urine Bacteria 0 SEEN Urine Mucus 0 SEEN Treatment and Re-Evaluation :: Differential diagnosis includes however is not limited to: Colitis, bowel obstruction, C. difficile, other viral stool infection, secondary to medication regimen, secondary to immunotherapy Patient appears generally well, vital signs are stable, patient is nontoxic-appearing. Presenting to the emergency department via recommendation of oncologist. Patient has had diarrhea over the last 2 to 3 weeks, they are concerned for C. difficile. Patient will receive basic laboratory values, patient did receive a CT scan of the chest abdomen pelvis, the chest shows improved right upper lobe bronchogenic carcinoma. No CT evidence of metastatic disease. Status post left colectomy with a left upper quadrant colostomy. The abdomen pelvis showed suggestive of neutropenic enterocolitis. Patient was use of basic laboratory values, IV fluids. Stool studies will be sent. Patient Laboratory values showed normal CBC, patient's chemistries were unremarkable, lipase was negative. Patient's stool sample was positive for toxic C. difficile. At this time, I spoke with the patient, patient's urinalysis was negative. Patient is able to eat and drink normally. Patient be treated outpatient for C. difficile. Patient placed on vancomycin 125 mg 4 times a day for 10 days. She will follow-up closely with Dr. Bryant, who I did speak to on the phone. All questions were answered, patient stable for discharge. <Dr. Vniay Travis MD - Last Filed: 10/15/24 12:04> [facility] Narrative Medical decision making narrative: I have personally performed a face to face assessment of the patient and have reviewed the PADILLA Note. I performed a substantive portion of the visit including all aspects of the following. My [place] findings include: History is 74-year-old female history of metastatic lung cancer. History of colitis. Complaining of intermittent diarrhea for several days to weeks. Has a colostomy. Currently is on immunotherapy for her lung CA. And is seeing oncology. Exam is [74-year-old female sitting upright in bed. Family bedside. Vital signs are stable afebrile. H EENT exam unremarkable. Moist with membranes. Neck nontender JVD. Lungs clear to auscultation bilaterally. Heart regular rhythm rate about 80 no murmur. Chest wall ribs nontender. Abdomen soft, nontender, nondistended normal bowel sounds without peritoneal signs. Left lower quadrant colostomy bag loose brown stool. No melena. No gross blood. Moving all 4 extremities. Patient is awake and alert.] Medical Decision Making [74-year-old with loose stools. Treated with IV fluids for possible dehydration and screening labs and C. difficile. She had a recent CAT scan we have the results on.] Other additions or changes: [None] Lab Data Attestation: I reviewed the patient's lab results. Lab results narrative: CBC shows normal white count 9.3. H&H 11.7 and 30.9 which is consistent with her baseline. Platelets 295. Labs: Laboratory Results - last 24 hr 10/15/24 10/15/24 11:30 12:15 WBC 9.3 RBC 4.41 Hgb 11.7 L Hct 38.9 MCV 88.2 MCH 26.5 L MCHC 30.1 L RDW Std Deviation 65.0 H RDW Coeff of Eloisa 20.1 H Plt Count 295 MPV 10.2 Immature Gran % (Auto) 0.500 Neut % (Auto) 81.1 H Lymph % (Auto) 7.7 L [place] % (Auto) 5.8 Eos % (Auto) 4.3 Baso % (Auto) 0.6 Absolute Neuts (auto) 7.5 Absolute Lymphs (auto) 0.71 L Nucleated RBC % 0 Differential Comment SCANNED Platelet Estimate ADEQUATE Plt Morphology Comment LARGE Polychromasia 1+ Anisocytosis 2+ Ovalocytes 1+ Sodium 141 Potassium 3.7 Chloride 110 H Carbon Dioxide 28.0 Anion Gap 2 L BUN 16 Creatinine 0.47 L Estim Creat Clear Calc 48.06 Est GFR (MDRD) Af Amer 164 Est GFR (MDRD) Non-Af 136 BUN/Creatinine Ratio 33.8 H Glucose 86 Calcium 9.0 Total Bilirubin 0.40 AST 33 ALT 27 Alkaline Phosphatase 100 Total Protein 6.1 L Albumin 2.6 L Globulin 3.5 Albumin/Globulin Ratio 0.7 L Lipase 20 Urine Color Yellow Urine Clarity Sl. Cloudy Urine pH 6.0 Ur Specific [place] 1.020 Urine Protein 30 H Urine Glucose (UA) Normal Urine Ketones 5 H Urine Occult Blood 10 H Urine Nitrite Negative Urine Bilirubin Negative Urine Urobilinogen Normal Ur Leukocyte Esterase 25 H Urine RBC 0 SEEN Urine WBC 0-5 SEEN Ur Squamous Epith Cells 0-5 SEEN Urine Bacteria 0 SEEN Urine Mucus 0 SEEN Discharge Plan Triage Chief Complaint: Abd Pain ED Midlevel Provider: Hernandez Chin ED Provider: Vinay Travis Dx/Rx/DC Orders Clinical Impression: Diarrhea, C. difficile colitis Instructions: Treating Diarrhea, Clostridium Difficile Infection Prescriptions: New vancomycin 125 mg capsule 125 mg PO Q6H 10 Days Qty: 40 0RF No Action gabapentin 300 mg capsule 300 mg PO QHS pantoprazole 40 mg tablet,delayed release (DR/EC) 40 mg PO DAILY Qty: 30 0RF lidocaine-prilocaine 2.5-2.5 % cream 1 applic topical ONCE PRN (Reason: PORT ACCESS) 30 Days Qty: 30 2RF prochlorperazine maleate 5 mg tablet 5 mg PO Q6H PRN (Reason: nausea and vomiting) latanoprost 0.005 % drops 2 drp ophthalmic (eye) DAILY tizanidine 4 mg tablet 4 mg PO QHS ondansetron HCl 8 mg tablet 8 mg PO TID PRN (Reason: nausea and vomiting) budesonide-formoterol [Symbicort] 160-4.5 mcg/actuation HFA aerosol inhaler 2 puff inhalation BID Qty: 3 3RF montelukast 10 mg tablet 10 mg PO DAILY Qty: 90 3RF albuterol sulfate 90 mcg/actuation HFA aerosol inhaler 2 puff inhalation Q4H PRN (Reason: SHORTNESS OF BREATH/WHEEZING ) Qty: 8.5 11RF albuterol sulfate 2.5 mg /3 mL (0.083 %) solution for nebulization 2.5 mg inhalation Q4-6H PRN (Reason: shortness of breath or wheezing) Qty: 180 11RF diphenhydramine HCl [Benadryl] 25 mg capsule 25 mg PO TID PRN (Reason: itching) Qty: 30 0RF acetaminophen 325 mg capsule 650 mg PO Q6H PRN (Reason: pain) dicyclomine 10 mg capsule 10 mg PO BID mirtazapine 15 mg tablet 15 mg PO QHS atorvastatin 10 mg tablet 10 mg PO QHS Qty: 90 3RF (DME) Hair prostethesis See Rx Instructions .Route .MEDSUPPLY Qty: 1 0RF Rx Instructions: As directed Primary Care Provider: Hernandez Mcqueen Referrals: Hernandez Mcqueen MD [Primary Care Provider] - Activity Restrictions/Additional Instructions: Please continue to follow-up. You need to maintain hydration. Take the antibiotics until finished. Print Language: Omani Disposition Disposition: Home, Self Care
[2024-10-15] MEDS: 0.9% Normal Saline (1000mL) 1,000 ML 999 ML IV (11:28)
[2024-10-15 11:45] LABS: Absolute Lymphocyte Count 0.71 X10^3/uL (0.83-4.51); Absolute Neutrophil Count 7.5 X10^3/uL (2.0-7.7); Basophil# 0.06 X10^3/uL; Basophil% 0.6 % (0-1); Eosinophils% 4.3 % (0-5); Hematocrit 38.9 % (37-47); Hemoglobin 11.7 g/dL (12.0-15.0); Lymphocyte # 0.71 X10^3/ul (0.83-4.51); Lymphocyte % 7.7 % (19-41); Mean Corp Hgb Conc 30.1 g/dL (32-36); Mean Corpuscular Hgb 26.5 pg (27.0-32.0); Mean Corpuscular Volume 88.2 fL (81-99); Mean Platelet Vol. 10.2 fl (6.2-12.0); Monocyte# 0.54 X10^3/uL; Monocyte% 5.8 % (0-10); NRBC Flagged by Analyzer 0 % (0-5); Neutrophil % 81.1 % (47-70); POSITIVE MORPHOLOGY YES; Platelet Count 295 K/mm3 (150-450); RBC Distribution Width CV 20.1 % (11.6-14.6); Red Blood Count 4.41 M/mm3 (4.2-5.4); White Blood Count 9.3 K/mm3 (4.4-11.0)
[2024-10-15 11:48] LABS: Differential Indicated SCAN CRITERIA MET
[2024-10-15 12:02] LABS: ALB/GLOB Ratio 0.7 RATIO (0.9-2.4); AST(SGOT) 33 U/L (15-37); Alanine Aminotransfer ALT/SGPT 27 U/L (13-56); Albumin, Serum 2.6 g/dL (3.2-5.0); Alkaline Phosphatase 100 U/L (45-117); Anion Gap 2 (5-15); BUN 16 mg/dL (7-18); BUN/Creat Ratio 33.8 RATIO (10-20); Chloride 110 mmol/L (98-107); Creatinine, Serum 0.47 mg/dL (0.55-1.02); EST Glomerular Filtration Rate 136 mL/min (>60); Est Glom Filt Rate - Afr Amer 164 mL/min (>60); Estimated Creatinine Clearance 48.06 ml/min; Globulin 3.5 g/dL (2.2-4.2); Glucose 86 mg/dL (74-106); Lipase 20 U/L (13-75); Potassium 3.7 mmol/L (3.5-5.1); Protein, Total 6.1 g/dL (6.4-8.2); Sodium Level 141 mmol/L (136-145)
[2024-10-15 12:24] LABS: Bacteria 0 SEEN /hpf (None Seen); Mucous, Urine 0 SEEN /hpf (<or=2+); Red Blood Cells-Urine 0 SEEN /hpf (0-5)
[2024-10-15 12:29] LABS: Color, Urine Yellow (Yellow); Glucose, Dipstick Normal (Normal); Ketone-Dipstick 5 mg/dl (Negative); Leukocyte Esterase-Dipstick 25 /ul (Negative); Nitrite-Dipstick Negative (Negative); Occult Blood-Urine 10 /ul (Negative); Protein-Dipstick 30 mg/dl (Negative); Urine Bilirubin Dipstick Negative (Negative); Urine Clarity Sl. Cloudy (Clear); Urine Urobilinogen Normal (Normal)
[2024-10-15 12:37] LABS: Squamous Epithelial Cells - UA 0-5 SEEN /hpf (5-10); White Blood Cells 0-5 SEEN /hpf (0-5)
[2024-10-15 13:15] VITALS: BP 161/92; PULSE 72; RESP 16; O2SAT 94
[2024-10-15 13:15] LABS: Anisocytosis 2+; Differential Comment SCANNED; Platelet Estimate ADEQUATE (ADEQ); Platelet Morphology LARGE
[2024-10-15 13:16] LABS: Ovalocyte 1+; Polychromasia 1+
[2024-10-15 13:48] VITALS: BP 159/74; PULSE 69; RESP 16; TEMP 37.2; O2SAT 94
== END 2024-10-15 13:49 | disposition home or self-care (01) ==
PROVIDERS: Nurse Practitioner; Emergency Provider Emergency Medicine; PCP Family Medicine; Visit Provider Emergency Medicine
DX: A04.72 Enterocolitis due to Clostridium difficile, not specified as recurrent (principal); C34.11 Malignant neoplasm of upper lobe, right bronchus or lung; Z93.3 Colostomy status; J44.9 Chronic obstructive pulmonary disease, unspecified; I10 Essential (primary) hypertension; I35.0 Nonrheumatic aortic (valve) stenosis; K21.9 Gastro-esophageal reflux disease without esophagitis; E78.00 Pure hypercholesterolemia, unspecified; K59.09 Other constipation; Z79.51 Long term (current) use of inhaled steroids; Z87.19 Personal history of other diseases of the digestive system; Z89.021 Acquired absence of right finger(s); Z90.49 Acquired absence of other specified parts of digestive tract; Z90.710 Acquired absence of both cervix and uterus; Z87.891 Personal history of nicotine dependence; Z86.718 Personal history of other venous thrombosis and embolism; Z79.899 Other long term (current) drug therapy
CPT/HCPCS: 80053; 81001; 83690; 85025; 87493; 96360; 96361; 99282; A4216

== ENCOUNTER → 2024-10-19 | Outpatient (CLI) | payer MEDICARE, MEDICAID, SELFPAY ==
--- NOTE | 2024-10-19 15:22 | RAD_ITS ---
EXAM: XR LEFT SHOULDER COMPLETE, 2 OR MORE VIEWS CLINICAL INDICATION: PAIN TECHNIQUE: Two or more views of the left shoulder. COMPARISON: No relevant prior studies available. FINDINGS: BONES/JOINTS: Mild degenerative changes of the acromioclavicular joint. No acute fracture. No subluxation. Normal alignment. No sclerotic or destructive changes observed. SOFT TISSUES: Unremarkable. No soft tissue swelling or gas. No radiopaque foreign body. RAD/Shoulder min 2 Views IMPRESSION: 1. No acute findings involving the left shoulder. 2. Mild degenerative changes of the acromioclavicular joint. Electronically Signed: Tsuhar Hale MD at 23:03 EST ,
--- NOTE | 2024-10-19 15:22 | RAD_ITS ---
EXAM: XR RIGHT SHOULDER COMPLETE, 2 OR MORE VIEWS CLINICAL INDICATION: PAIN TECHNIQUE: Two or more views of the right shoulder. COMPARISON: No relevant prior studies available. FINDINGS: BONES/JOINTS: Mild degenerative changes of the glenohumeral joint. No acute fracture. No subluxation. Normal alignment. No sclerotic or destructive changes observed. SOFT TISSUES: Unremarkable. No soft tissue swelling or gas. No radiopaque foreign body. TUBES, LINES AND DEVICES: Right chest port. RAD/Shoulder min 2 Views IMPRESSION: 1. No acute findings involving the right shoulder. 2. Mild degenerative changes of the glenohumeral joint. Electronically Signed: Tushar Hale MD at 23:04 EST ,
== END | disposition home or self-care (01) ==
LOC: MTRAD 15:20
PROVIDERS: PCP Family Medicine; Referring Provider Family Medicine; Visit Provider Family Medicine
DX: M25.511 Pain in right shoulder (principal); M25.512 Pain in left shoulder
CPT/HCPCS: 73030

== ENCOUNTER 2024-11-30 09:00 | Outpatient (RCR) | payer MEDICARE, MEDICAID, SELFPAY ==
--- NOTE | 2024-11-02 08:55 | HP.PTEVAL_ITS ---
Patient's Visit Information Visit Information Visit Information: JUAN HAWKINS is a 74 year old F referred to Physical Therapy by Dr. Hernandez Mcqueen MD with a diagnosis of Shoulder pain. Date of Evaluation: 11/02/24 Physical Therapist: LAZARA Crooks Visit Plan Frequency: 1x/Week Duration: 2 Months Plan: 2X/ week for 4-8 weeks for B shoulder PROM/AAROM/AROM, posture exercises, scapular exercises, neck AROM, RC strength with HEP. May use MH to help with pain prior to exercise or after. HEP: Scapular squeezes, Supine wand flexion press, pendulums Subjective Subjective: She has B shoulder pain. Her shoulders hurt and the pain down to her fingers and her fingers go numb. She has a little bit of neck pain. The X- rays showed arthritis. Nothing helps the pain. She has been taking Tylenol. She is not sleeping well because of the pain. This started about 3-4 weeks ago. She can not raise her arms over her head and she has sharp pain. She can not lay on her shoulders. She has tingling in the tips of her fingers. Pain is Equal on B sides. Ice makes it worse. Heat makes it a little better. 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 Posture: Increased PPT, rounded shoulders and increased thoracic kyphosis R shoulder PROM: able to go to approx 120 degrees flexion after a few minutes...painful end feel B Balance/Special Test Scores Quick DASH Score: 90.9075 Goals Goal 1:: I HEP Goal Time Frame: 6-8 Weeks Goal 2:: Be able to raise arms overhead with 50% less pain Goal Time Frame: 6-8 Weeks Goal 3:: Increase B shoulder AROM (at the time of the eval: UE AROM: R shoulder flex 60, and L 50 degrees on the L R shoulder ABD 40 and L 41 degrees R shoulder IR PSIS and L T12 R shoulder ER 30 and L 31) Goal Time Frame: 6-8 Weeks Goal 4:: Sit with upright posture Goal Time Frame: 6-8 Weeks Goal 5:: Increase c-spine AROM with upright posture (at the time of the eval: C-spine AROM: flex 75%, Ext 10%, Rot R 50% and Rot L 75%, Sb B 50%) Goal Time Frame: 6-8 Weeks Rehabilitation Potential Rehabilitation Potential: Fair Anticipated Interventions Patient/Client Instruction: Educate patient on: Condition and Plan of Care For the Purpose of:: To decrease pain, To increase ROM, To improve nutrient delivery to tissue, To improve muscle performance and motor function, To improve ability to perform ADL's, To increase tolerance to activity/condition/position, To improve performance and independence with ADL's, To decrease level of supervision to perform tasks, To improve ability of physical actions for home/community/work/leisure, To improve gait and locomotor functions, To improve health of tissue, To decrease soft tissue restriction and To increase flexibility/ROM Therapeutic Exercise to Include: Strength training, Postural training, Flexibilty training, Neuromotor development, Passive ROM, Active ROM and Scapular Strength/Stabilization For the Purpose of:: To decrease pain, To increase ROM, To improve nutrient delivery to tissue, To improve muscle performance and motor function, To improve ability to perform ADL's, To increase tolerance to activity/condition/position, To improve performance and independence with ADL's, To decrease level of supervision to perform tasks, To improve ability of physical actions for home/community/work/leisure, To improve health of tissue, To decrease soft tissue restriction and To increase flexibility/ROM Manual Therapy Techniques to Include: Passive ROM For the Purpose of:: To increase flexibility/ROM Thermo therapy (hot pack): Yes For the Purpose of:: To decrease pain, To increase ROM and To improve nutrient delivery to tissue Text: Thank you for the opportunity to evaluate your patient. For Medicare and Medicare HMO plans, please review the plan of care and approve it. It will need to be FAXED BACK to us at [phone] for Medicare purposes. For Medicare only, by signing this I certify the plan of care. Please let me know if there are questions or concerns regarding this plan of care. Physician Signature: Date:
--- NOTE | 2024-11-30 09:24 | HP.PTDCSUM ---
Discharge Summary D/C summary: It has been my pleasure to treat JUAN HAWKINS referred by Dr. Hernandez Mcqueen MD, with the diagnosis of Shoulder pain for a total of 7 visit(s). Discharge Date: 11/30/24 Please see the following information for a summary of their discharge status. Subjective Subjective: Pt reports that PT is not helping her shoulder. She does the exercises and moves her arm at home and it does not seem to help. She is so sore in the morning and she can hardly move. She has an appt with her Dr again on the . She has had no improvement with motion or pain. She feels like there is a muscle in her shoulder that is pulling her shoulder back down. She reports that she has hand cramps and can hardly move them. The more exercises she does the more sore she is the next morning. The heat did not help at all either. She does this at home also. She gets Numbness all day in her fingers and tingling if she moves her arms. Pain R shoulder pain: Pain Intensity (Out of 10): 9 L shoulder pain: Pain Intensity (Out of 10): 8 Overall Improvement % Improvement: 0 Objective Objective/Function: UE AROM: R shoulder flex 60, and L 55 degrees on the L R shoulder ABD 50 and L 60 degrees R shoulder IR L5 and L T12 R shoulder ER 30 and L 31 Posture: Sits with protracted shoulders and guarded UE's C-spine AROM: flex 75%, Ext 10%, Rot R 75and Rot L 75%, SB B 50% Goals Goal 1:: I HEP Goal Progress: Goal Met Goal 2:: Be able to raise arms overhead with 50% less pain Goal Progress: Not Progressing Goal 3:: Increase B shoulder AROM (at the time of the eval: UE AROM: R shoulder flex 60, and L 50 degrees on the L R shoulder ABD 40 and L 41 degrees R shoulder IR PSIS and L T12 R shoulder ER 30 and L 31) Goal 4:: Sit with upright posture Goal 5:: Increase c-spine AROM with upright posture (at the time of the eval: C-spine AROM: flex 75%, Ext 10%, Rot R 50% and Rot L 75%, Sb B 50%) Plan Plan: DC PT back to Dr. Jarquin/Jessee Information Discharge Comments: DC PT back to Dr jarquin/jessee sentence: If there are questions or concerns regarding this patient's physical therapy, please feel free to call me at [phone]. Thank you for the referral of this patient. Sincerely, Carmelina Diego, MPT Balance/Gait/Functional tests Balance/Special Test Scores Quick DASH Score: 81.8175 Improvement % Improvement: 0
== END 2024-11-30 12:25 | disposition home or self-care (01) ==
LOC: PT 09:00
PROVIDERS: PCP Family Medicine; Referring Provider Family Medicine; Visit Provider Family Medicine
DX: M25.511 Pain in right shoulder (principal); M25.512 Pain in left shoulder
CPT/HCPCS: 97110; 97140; 97161; 97530

== ENCOUNTER → 2024-12-08 | Outpatient (CLI) | payer MEDICARE, MEDICAID, SELFPAY ==
[2024-12-08 11:23] LABS: Erythrocyte Sedimentation Rate 80 mm/hr (0-30)
[2024-12-08 11:33] LABS: CPK Total, Creatine Kinase 75 U/L (26-192); LDH 243 U/L (84-246)
[2024-12-10 15:07] LABS: Alpha-1-Globulins 0.3 g/dL (0.0-0.4); IMMUNOFIXATION RESULT,S Comment: (.); Immunoglobulin A 533 mg/dL (64-422); Immunoglobulin G 863 mg/dL (586-1602); Immunoglobulin M 73 mg/dL (26-217); PROEL- TOTAL PROTEIN 6.5 g/dL (6.0-8.5)
== END | disposition home or self-care (01) ==
LOC: LAB 10:05
PROVIDERS: PCP Family Medicine; Referring Provider Internal Medicine Gastroenterology; Visit Provider Internal Medicine Gastroenterology
DX: K52.9 Noninfective gastroenteritis and colitis, unspecified (principal); M79.10 Myalgia, unspecified site
CPT/HCPCS: 36415; 82550; 82784; 83615; 84165; 85652; 86140; 86334

== ENCOUNTER → 2025-02-04 | Outpatient (CLI) | payer MEDICARE, MEDICAID, SELFPAY ==
--- NOTE | 2025-02-04 08:08 | CT_ITS ---
PROCEDURE: CT CHEST, ABD, PEL W/CONTRAST 02/04/2025 REASON FOR EXAM: MNSCLC; ASSESS RESPONSE TO TREATMENT TECHNIQUE: Chest, abdomen and pelvis CT with intravenous contrast. Coronal and Sagittal reconstruction series were provided. One or more dose reduction techniques were used (e.g., Automated exposure control, adjustment of the mA and/or kV according to patient size, use of iterative reconstruction technique. PATIENT PREPARATION: Per protocol ORAL CONTRAST TYPE: None. AMOUNT: mL CONTRAST: Isovue 370 VOLUME: 100ML 18 gauge IV RADIATION DOSE SUMMARY: CTDlvol: 273.6 mGy DLP: 440.1 mGycm COMPARISON: None. FINDINGS: CT CHEST: Hardware: Right chest wall johana catheter with tip terminating within the distal SVC. Lymph nodes: No lymphadenopathy Heart and Vasculature: The heart is normal in size. The great vessels are normal in size and caliber. The main pulmonary artery is dilated measuring 3.6 cm likely secondary to pulmonary arterial hypertension. Lungs and Airways: Central airways are patent. There is a consolidative density within the right upper lobe measuring 3.5 x 6.3 cm extending towards the hilum, raising concern for malignancy. Moderate to severe centrilobular emphysematous changes within bilateral lungs. There is a nodular density within the right middle lobe measuring 1.1 x 0.8 cm. Biapical pleural-parenchymal scarring/thickening. Pleura: No pleural effusion or pneumothorax. Bones: Age-indeterminate compression deformity of the T4, T6, T8, T12 vertebral bodies. CT ABDOMEN/PELVIS: Liver: Unremarkable Gallbladder: Unremarkable Spleen: Unremarkable Pancreas: Unremarkable Adrenals: Unremarkable Kidneys: Kidneys are normal in size and configuration. No hydronephrosis. Bladder: No focal bladder wall thickening. Reproductive Organs: Unremarkable Bowel: Lack of oral contrast limits evaluation of the bowel. No small bowel or large bowel obstruction or dilation. There is a large narrow neck ventral hernia within the anterior abdominal wall containing bowel and mesenteric fat. Diverticulosis. Appendix: Not visualized Lymph nodes: No lymphadenopathy. Vasculature: Patent vasculature. Peritoneum / Retroperitoneum: Unremarkable Bones: Please note 6 lumbar type vertebral bodies are identified with caudal most lumbar type vertebrae labeled as L6. Age-indeterminate compression deformity of the L2, and L5 vertebral body. CT/CT Chest, Abd, Pel w/Contrast IMPRESSION: *Please note there are no prior examinations are available for comparison on PA CS and therefore treatment response can not be assessed on this examination. Should priors become available, an addendum can be requested at that time. *There is a consolidative type opacity within the right upper lobe extending to wards the right hilum, raising concern for malignancy. *Severe centrilobular emphysematous changes are present throughout the bilatera l lungs. *A smaller nodular density within the inferior right upper lobe possibly repres ents a satellite nodule. *Dilated main pulmonary artery, likely representing pulmonary arterial hyperten karson. *Age-indeterminate compression deformities of the T4, T6, T8, T12, L2, and L5 v ertebral bodies are identified on this examination. Please note that 6 lumbar-type vertebral bodies are identified wi th caudal most lumbar type vertebra labeled as L6. Should spinal procedure be entertained in this patient please review all availa ble imaging before proceeding. Reading Location: [facility]
[2025-02-04] MEDS: 0.9% Saline Lock 10 ML Syringe IV (08:26)
== END | disposition home or self-care (01) ==
LOC: CT 07:39
PROVIDERS: PCP Family Medicine; Referring Provider Nurse Practitioner Family; Visit Provider Nurse Practitioner Family
DX: C34.10 Malignant neoplasm of upper lobe, unspecified bronchus or lung (principal)
CPT/HCPCS: 71260; 74177; Q9967; A4216

== ENCOUNTER 2025-03-04 11:18 | Inpatient (IN) | payer MEDICARE, MEDICAID, SELFPAY ==
[2025-03-04] VITALS (16 sets, daily range): BP systolic 85–150; BP diastolic 50–90; PULSE 101–111; RESP 16–20; TEMP 36–37; O2SAT 92–99; BMI 20.4; BMI 19.3
--- NOTE | 2025-03-04 12:44 | RAD_ITS ---
PROCEDURE: CHEST 1 VIEW (PORTABLE) 03/04/2025 REASON FOR EXAM: COPD TECHNIQUE: Frontal view of the chest. COMPARISON: Chest x-ray of 06/02/[address] examination of 02/04/2025. RAD/Chest 1 View (Portable) IMPRESSION: Central venous catheter with port remains in place. Persistent increased density of the right upper lobe. No significant degree of pulmonary edema is noted. Underlying chronic lung changes and emphysema are again seen. No pleural effusion or pneumothorax is evident. The cardiomediastinal silhouette is stable, with a tortuous aorta noted. No ev idence of cardiomegaly. Generalized osteopenia is again present. No acute osseous process is seen. Reading Location: [place] [id number]
--- NOTE | 2025-03-04 12:47 | EX.ED.DYSGE1 ---
HPI History of Present Illness Chief Complaint: Abn Labs Narrative Narrative: 75-year-old female past medical history of lung carcinoma, status post radiation treatment presents to the emergency department with hemoglobin of 6. She relates history that she has been more short of breath, and has had generalized weakness as well. She saw her oncologist, Dr. Bryant today who did laboratory work and she was sent to the emergency department secondary to a hemoglobin of 6. Of note, they state that patient had history of transfusion of 2 units of blood in the infusion center about a week or 2 ago. She has been having black stool recently. She does have history of gastrointestinal bleeding, and last had colonoscopy done by Dr. Morris 3 years ago. She does not take any blood thinners currently. Additionally, RN states that patient was hypoxic at 88% on room air so she was placed on 2 L nasal cannula oxygen. She does not wear oxygen at home. She denies any recent fevers or chills. She has a chronic cough. Essentially, she is here because she feels that she is bleeding internally, but states that no one can ever find a place where she has bleeding. [facility] Medical History Cancer related pain Exertional dyspnea Encounter for antineoplastic immunotherapy Headache At risk for deep venous thrombosis Leg edema Hematuria Anemia due to chronic blood loss Rash Wears glasses Wears dentures Cancer Arthritis High cholesterol Easy bruising Restless legs Back pain Gastric reflux Former smoker Shortness of breath on exertion History of edema History of echocardiogram History of stress test Hypertension Cardiology follow-up encounter History of irregular heartbeat Encounter for education COPD (chronic obstructive pulmonary disease) Fatigue Contact with and (suspected) exposure to other viral communicable diseases Generalized weakness Alopecia Hypokalemia Pneumonia COVID-19 Mild aortic stenosis Nicotine dependence Chronic constipation Essential hypertension Hyperlipidemia Benign neoplasm of colon Asthma Home Medications ?Medication ?Instructions ?Recorded ?Last Taken ?Type atorvastatin 10 mg tablet 10 mg PO QHS CHOLESTEROL #90 tabs 04/17/21 03/03/25 Rx Hair prostethesis #1 ea 01/17/23 Unknown Rx gabapentin 300 mg capsule 300 mg PO QHS NERVE PAIN 03/18/23 03/03/25 History pantoprazole 40 mg tablet,delayed 40 mg PO DAILY ACID REFLUX #30 tabs 07/25/23 03/04/25 Rx release dicyclomine 10 mg capsule 10 mg PO BID IRRITABLE BOWELS 08/21/23 03/04/25 History mirtazapine 15 mg tablet 15 mg PO QHS DEPRESSION 08/21/23 03/03/25 History albuterol sulfate 2.5 mg/3 mL 2.5 mg (3 mL) inhalation Q4-6H PRN 02/24/24 Unknown Rx (0.083 %) solution for nebulization shortness of breath or wheezing #180 mL albuterol sulfate 90 mcg/actuation 2 puff inhalation Q4H PRN 02/24/24 Unknown Rx aerosol inhaler SHORTNESS OF BREATH/WHEEZING #8.5 grams latanoprost 0.005 % eye drops 2 drp ophthalmic (eye) DAILY 02/24/24 03/04/25 History ondansetron HCl 8 mg tablet 8 mg PO TID PRN nausea and vomiting 02/24/24 Unknown History tizanidine 4 mg tablet 4 mg PO QHS 02/24/24 03/03/25 History acetaminophen 325 mg capsule 650 mg PO Q6H PRN pain 08/26/24 Unknown History diphenhydramine HCl 25 mg capsule 25 mg PO TID PRN itching #30 caps 09/30/24 Unknown Rx (Benadryl) lidocaine-prilocaine 2.5 %-2.5 % 1 applic topical ONCE PRN PORT 01/07/25 Unknown Rx topical cream ACCESS 30 days #30 grams fluticasone furoate 100 1 inh inhalation DAILY 03/04/25 03/04/25 History mcg/actuation blister powder for inhalation (Arnuity Ellipta) montelukast 10 mg tablet 10 mg PO QHS ALLERGIES 03/04/25 03/03/25 History nortriptyline 50 mg capsule 50 mg PO QHS 03/04/25 03/03/25 History Allergy/AdvReac Type Severity Reaction Status Date / Time watermelon Allergy Intermediate Hives Verified 03/04/25 11:19 Family History Father Cancer spinal Mother Alzheimer's disease Brother Pacemaker Surgical History Hx of colonoscopy History of creation of ostomy Status post [place] procedure History of cystoscopy History of amputation of finger of right hand History of toe surgery History of cataract extraction History of breast surgery History of D&C History of tonsillectomy History of appendectomy History of hysterectomy Social History household members: spouse pets and animals: Yes (dogs) Smoking Status: Former smoker how long ago did patient quit smokin alcohol intake: former substance use type: does not use ROS ROS ED ROS Narrative Review of systems positive for chronic cough. Generalized weakness. Positive black stool. Endorses lightheadedness and dizziness on occasion. No fevers or chills. No nausea or vomiting. No hematemesis. No exacerbating or alleviating factors. EXAM Physical Exam Narrative Exam Narrative: Afebrile. Vital signs noted. Nontoxic-appearing. Positive subconjunctival pallor. Cardiovascular examination reveals mild tachycardia. Decreased breath sounds bilateral bases on lung auscultation with occasional expiratory wheezing. Abdomen is soft and nontender without guarding or rebound. Positive bowel sounds. Neurological examination shows her to be awake, alert, interactive, nonfocal, nonlateralizing. Const Vital Signs: 03/04/25 11:19 03/04/25 11:19 03/04/25 12:09 Temperature 96.9 F L Temperature Source Temporal Pulse Rate 110 H 111 H Respiratory Rate 16 16 Respiratory Effort Short of Breath Respiratory Pattern Normal Blood Pressure 101/50 L 85/59 L Blood Pressure Mean 67 67 Blood Pressure Source Blood Pressure Position Blood Pressure Location Pulse Ox 95 96 Oxygen Delivery Method Room Air Room Air Oxygen Flow Rate (L/min) 03/04/25 12:32 03/04/25 13:00 03/04/25 13:05 Temperature Temperature Source Pulse Rate 105 H 108 H 101 H Respiratory Rate 19 H 19 H 16 Respiratory Effort Respiratory Pattern Blood Pressure 118/58 L 105/81 H Blood Pressure Mean 78 89 Blood Pressure Source Blood Pressure Position Blood Pressure Location Pulse Ox 96 98 Oxygen Delivery Method Nasal Cannula Oxygen Flow Rate (L/min) 2 03/04/25 14:00 03/04/25 15:00 03/04/25 15:35 Temperature 97.9 F Temperature Source Oral Pulse Rate 107 H 106 H 102 H Respiratory Rate 20 H 19 H 19 H Respiratory Effort Respiratory Pattern Blood Pressure 110/90 H 131/63 H Blood Pressure Mean 97 85 Blood Pressure Source Monitor Blood Pressure Position Semi-Fowlers Blood Pressure Location Right Arm Pulse Ox 97 99 98 Oxygen Delivery Method Nasal Cannula Nasal Cannula Oxygen Flow Rate (L/min) 2 2 03/04/25 15:50 Temperature 98.6 F Temperature Source Oral Pulse Rate 103 H Respiratory Rate 17 Respiratory Effort Respiratory Pattern Blood Pressure 122/72 H Blood Pressure Mean 88 Blood Pressure Source Monitor Blood Pressure Position Semi-Fowlers Blood Pressure Location Right Arm Pulse Ox 98 Oxygen Delivery Method Nasal Cannula Oxygen Flow Rate (L/min) 2 MDM MDM MDM Narrative Medical decision making narrative: Differential diagnosis includes hypoxia secondary to COPD exacerbation versus pneumonia. I did review her laboratory work from today and she does have a hemoglobin of 6.0. I will repeat CBC and electrolyte panel, but she was typed and crossmatched for 2 units. My concern is for GI bleeding. She has had this in the past. I fob of the stool will be performed as well. She was given a DuoNeb aerosolized treatment for her COPD to see if she can come off oxygen as she does not have any at home. I reviewed her laboratory work and she has a normal white count of 10.4 with hemoglobin of 5.7, down from 6.0 earlier today when compared to prior labs. Platelet count has not yet returned. Electrolyte panel shows BUN of 21 with creatinine low at 0.49, at her baseline when compared to previous, glucose appropriately elevated at 100 with anion gap normal at 12. Alk phos elevated at 131 but this is a chronic elevation. Samples taken from patient's stoma. It is Hemoccult positive. Chest x-ray interpreted by myself independently shows no evidence of an acute process, no pneumonia, no pneumothorax. I reviewed the radiology report which confirms my independent interpretation. Given her GI bleeding and anemia requiring transfusions, patient discussed with the hospitalist Dr. Rosa Levine for admission to the PCU. She is in stable condition. History & Record Review Discussion w/independent historian: Patient and Family Lab Data Attestation: I reviewed the patient's lab results. Labs: Laboratory Results - last 24 hr 03/04/25 12:05 WBC 10.4 RBC 2.34 L Hgb 5.7 L* Hct 19.8 L MCV 84.6 MCH 24.4 L MCHC 28.8 L RDW Std Deviation 59.4 H RDW Coeff of Eloisa 19.1 H Plt Count MPV 10.8 Immature Gran % (Auto) 1.400 H Neut % (Auto) 85.1 H Lymph % (Auto) 5.5 L Davis % (Auto) 6.8 Eos % (Auto) 1.0 Baso % (Auto) 0.2 Absolute Neuts (auto) 8.8 H Absolute Lymphs (auto) 0.57 L Nucleated RBC % 0.8 Platelet Estimate ADEQUATE Hypochromasia 2+ Anisocytosis 2+ Sodium 137 Potassium 4.7 Chloride 104 Carbon Dioxide 21.0 Anion Gap 12 BUN 21 H Creatinine 0.49 L Estim Creat Clear Calc 47.32 L Est GFR (MDRD) Non-Af 98 BUN/Creatinine Ratio 41.8 H Glucose 100 H Calcium 8.9 Total Bilirubin < 0.15 AST 22 ALT 10 Alkaline Phosphatase 131 H Total Protein 5.7 L Albumin 2.5 L Globulin 3.2 Albumin/Globulin Ratio 0.8 L Blood Type O POSITIVE Antibody Screen NEGATIVE Crossmatch See Detail Radiography Chest X-Ray - ED: 1 View, Read by ED Physician and Read by Radiologist Diagnostic Testing: Clinical Impression(s) from Imaging Studies Chest X-Ray 03/04/25 12:44 IMPRESSION: Central venous catheter with port remains in place. Persistent increased density of the right upper lobe. No significant degree of pulmonary edema is noted. Underlying chronic lung changes and emphysema are again seen. No pleural effusion or pneumothorax is evident. The cardiomediastinal silhouette is stable, with a tortuous aorta noted. No evidence of cardiomegaly. Generalized osteopenia is again present. No acute osseous process is seen. Reading Location: [place] [id number] Management Discussion w/another healthcare provider: Hospitalist Discharge Plan Dx/Rx/DC Orders Clinical Impression: Acute GI bleeding, Anemia due to GI blood loss, Anemia requiring transfusions, Non-small cell carcinoma of left lung, stage 3 Disposition Disposition: [facility] Discharge Date/Time: 03/04/25 16:38
[2025-03-04] MEDS: Ipratropium/Albuterol Sulfate 3 ML AMPUL.NEB INHALATION ×2 (13:05→17:29)
[2025-03-04 13:08] LABS: Absolute Lymphocyte Count 0.57 X10^3/uL (0.83-4.51); Absolute Neutrophil Count 8.8 X10^3/uL (2.0-7.7); Basophil# 0.02 X10^3/uL; Basophil% 0.2 % (0-1); Hematocrit 19.8 % (37-47); Hemoglobin 5.7 g/dL (12.0-15.0); Lymphocyte # 0.57 X10^3/ul (0.83-4.51); Lymphocyte % 5.5 % (19-41); Mean Corp Hgb Conc 28.8 g/dL (32-36); Mean Corpuscular Hgb 24.4 pg (27.0-32.0); Mean Corpuscular Volume 84.6 fL (81-99); Mean Platelet Vol. 10.8 fl (6.2-12.0); Monocyte% 6.8 % (0-10); NRBC Flagged by Analyzer 0.8 % (0-5); Neutrophil # 8.83 X10^3/uL (2.7-7.7); Neutrophil % 85.1 % (47-70); POSITIVE COUNT YES; POSITIVE DIFFERENTIAL YES; RBC Distribution Width CV 19.1 % (11.6-14.6); RBC Distribution Width SD 59.4 fl (35.1-43.9); Red Blood Count 2.34 M/mm3 (4.2-5.4); White Blood Count 10.4 K/mm3 (4.4-11.0)
[2025-03-04 13:10] LABS: Differential Indicated SCAN CRITERIA MET
--- NOTE | 2025-03-04 13:11 | ED.RN ---
Dr Alberto notified of critical hemoglobin
[2025-03-04 13:43] LABS: Anisocytosis 2+
[2025-03-04 13:44] LABS: Hypochromasia 2+
[2025-03-04 13:45] LABS: Platelet Estimate ADEQUATE (ADEQ)
[2025-03-04 14:08] LABS: ALB/GLOB Ratio 0.8 RATIO (0.9-2.4); AST(SGOT) 22 U/L (<=31); Alanine Aminotransfer ALT/SGPT 10 U/L (<=34); Albumin, Serum 2.5 g/dL (3.4-4.8); Alkaline Phosphatase 131 U/L (35-104); Anion Gap 12 (5-15); BUN 21 mg/dL (4-19); BUN/Creat Ratio 41.8 RATIO (10-20); Calcium,Total 8.9 mg/dL (7.6-11.0); Chloride 104 mmol/L (98-108); Creatinine, Serum 0.49 mg/dL (0.70-1.20); EST Glomerular Filtration Rate 98 (>60); Estimated Creatinine Clearance 47.32 ml/min (50-250); Globulin 3.2 g/dL (2.2-4.2); Glucose 100 mg/dL (70-99); Potassium 4.7 mmol/L (3.3-5.1); Protein, Total 5.7 g/dL (5.9-8.4); Sodium Level 137 mmol/L (133-145); Total Bilirubin < 0.15 mg/dL (0.00-1.30)
[2025-03-04] MEDS: Ondansetron 4 MG/2 ML Vial IV (15:54)
--- NOTE | 2025-03-04 16:05 | PCM.HP.STD ---
HPI - General General Date of Admission: 03/04/25 Date of Service: 03/04/25 Chief Complaint: weakness, anemia HPI Narrative JUAN HAWKINS, is a 75-year-old female history of lung cancer status post radiation, colostomy, GERD, COPD who presented to [facility] ED 03/04/2025 due to a hemoglobin of 6 that was discovered by her oncologist, Dr. Bryant, after he did lab work today. Of note patient had a transfusion of 2 units of blood at the infusion center 1 or 2 weeks ago but has been having black stool recently. Has history of GI bleed with last colonoscopy done by Dr. Morris 3 years ago. Not presently on any blood thinners. Additionally patient 88% on room air on arrival so she was placed on 2 L of nasal cannula. In the ED temperature 96.9, pulse rate 110 blood pressure 101/50, respiratory rate 16 and patient initially 95% on room air but was noted to dip to 88% was placed on 2 L with improvement in oxygen to high 90s. Hemoglobin was confirmed to be low at 5.7 and fecal occult positive. Patient typed and screened and transfused and hospitalist contacted for admission. Patient evaluated bedside. She reports over the past 2 days she has had dark stool and has felt weak and short of breath, initially felt some lightheadedness when standing but has not felt that way today. Notes nausea but this has been going on for 3 to 4 months and has not acutely changed. No abdominal pain, no changes in bladder. Reports she has a colostomy due to previously having dying bowel. [facility] Medical History Cancer related pain Exertional dyspnea Encounter for antineoplastic immunotherapy Headache At risk for deep venous thrombosis Leg edema Hematuria Anemia due to chronic blood loss Rash Wears glasses Wears dentures Cancer Arthritis High cholesterol Easy bruising Restless legs Back pain Gastric reflux Former smoker Shortness of breath on exertion History of edema History of echocardiogram History of stress test Hypertension Cardiology follow-up encounter History of irregular heartbeat Encounter for education COPD (chronic obstructive pulmonary disease) Fatigue Contact with and (suspected) exposure to other viral communicable diseases Generalized weakness Alopecia Hypokalemia Pneumonia COVID-19 Mild aortic stenosis Nicotine dependence Chronic constipation Essential hypertension Hyperlipidemia Benign neoplasm of colon Asthma Home Medications ?Medication ?Instructions ?Recorded ?Last Taken ?Type atorvastatin 10 mg tablet 10 mg PO QHS CHOLESTEROL #90 tabs 04/17/21 03/03/25 Rx Hair prostethesis #1 ea 01/17/23 Unknown Rx gabapentin 300 mg capsule 300 mg PO QHS NERVE PAIN 03/18/23 03/03/25 History pantoprazole 40 mg tablet,delayed 40 mg PO DAILY ACID REFLUX #30 tabs 07/25/23 03/04/25 Rx release dicyclomine 10 mg capsule 10 mg PO BID IRRITABLE BOWELS 08/21/23 03/04/25 History mirtazapine 15 mg tablet 15 mg PO QHS DEPRESSION 08/21/23 03/03/25 History albuterol sulfate 2.5 mg/3 mL 2.5 mg (3 mL) inhalation Q4-6H PRN 02/24/24 Unknown Rx (0.083 %) solution for nebulization shortness of breath or wheezing #180 mL albuterol sulfate 90 mcg/actuation 2 puff inhalation Q4H PRN 02/24/24 Unknown Rx aerosol inhaler SHORTNESS OF BREATH/WHEEZING #8.5 grams latanoprost 0.005 % eye drops 2 drp ophthalmic (eye) DAILY 02/24/24 03/04/25 History ondansetron HCl 8 mg tablet 8 mg PO TID PRN nausea and vomiting 02/24/24 Unknown History tizanidine 4 mg tablet 4 mg PO QHS 02/24/24 03/03/25 History acetaminophen 325 mg capsule 650 mg PO Q6H PRN pain 08/26/24 Unknown History diphenhydramine HCl 25 mg capsule 25 mg PO TID PRN itching #30 caps 09/30/24 Unknown Rx (Benadryl) lidocaine-prilocaine 2.5 %-2.5 % 1 applic topical ONCE PRN PORT 01/07/25 Unknown Rx topical cream ACCESS 30 days #30 grams fluticasone furoate 100 1 inh inhalation DAILY 03/04/25 03/04/25 History mcg/actuation blister powder for inhalation (Arnuity Ellipta) montelukast 10 mg tablet 10 mg PO QHS ALLERGIES 03/04/25 03/03/25 History nortriptyline 50 mg capsule 50 mg PO QHS 03/04/25 03/03/25 History Allergy/AdvReac Type Severity Reaction Status Date / Time watermelon Allergy Intermediate Hives Verified 03/04/25 11:19 Family History Father Cancer spinal Mother Alzheimer's disease Brother Pacemaker Surgical History Hx of colonoscopy History of creation of ostomy Status post Eleno procedure History of cystoscopy History of amputation of finger of right hand History of toe surgery History of cataract extraction History of breast surgery History of D&C History of tonsillectomy History of appendectomy History of hysterectomy Social History household members: spouse pets and animals: Yes (dogs) Smoking Status: Former smoker how long ago did patient quit smokin alcohol intake: former substance use type: does not use ROS ROS Narrative General: Denies fever/chills HENT: Denies headache, denies stuffy nose, denies sore throat EYES: Denies changes in vision Resp: Chronic cough that has any significant change, some shortness of breath over the past 2 days Cardiac: Denies chest pain GI: Denies abdominal pain, dark stool for 2 days, denies nausea/vomiting : Denies changes in urination Extremity: Denies swelling MSK: Some generalized weakness Neuro: Denies any numbness/tingling Heme: Denies any bleeding or bruising Skin: Denies rashes Psychiatric: No complaints voiced Vital Signs Vital Signs Vital Signs: 03/04/25 11:19 03/04/25 11:19 03/04/25 12:09 Temperature 96.9 F L Temperature Source Temporal Pulse Rate 110 H 111 H Respiratory Rate 16 16 Respiratory Effort Short of Breath Respiratory Pattern Normal Blood Pressure 101/50 L 85/59 L Blood Pressure Mean 67 67 Blood Pressure Source Blood Pressure Position Blood Pressure Location Pulse Ox 95 96 Oxygen Delivery Method Room Air Room Air Oxygen Flow Rate (L/min) 03/04/25 12:32 03/04/25 13:00 03/04/25 13:05 Temperature Temperature Source Pulse Rate 105 H 108 H 101 H Respiratory Rate 19 H 19 H 16 Respiratory Effort Respiratory Pattern Blood Pressure 118/58 L 105/81 H Blood Pressure Mean 78 89 Blood Pressure Source Blood Pressure Position Blood Pressure Location Pulse Ox 96 98 Oxygen Delivery Method Nasal Cannula Oxygen Flow Rate (L/min) 2 03/04/25 14:00 03/04/25 15:00 03/04/25 15:35 Temperature 97.9 F Temperature Source Oral Pulse Rate 107 H 106 H 102 H Respiratory Rate 20 H 19 H 19 H Respiratory Effort Respiratory Pattern Blood Pressure 110/90 H 131/63 H Blood Pressure Mean 97 85 Blood Pressure Source Monitor Blood Pressure Position Semi-Fowlers Blood Pressure Location Right Arm Pulse Ox 97 99 98 Oxygen Delivery Method Nasal Cannula Nasal Cannula Oxygen Flow Rate (L/min) 2 2 03/04/25 15:50 Temperature 98.6 F Temperature Source Oral Pulse Rate 103 H Respiratory Rate 17 Respiratory Effort Respiratory Pattern Blood Pressure 122/72 H Blood Pressure Mean 88 Blood Pressure Source Monitor Blood Pressure Position Semi-Fowlers Blood Pressure Location Right Arm Pulse Ox 98 Oxygen Delivery Method Nasal Cannula Oxygen Flow Rate (L/min) 2 Weight Weight: 50.7 kg Body Mass Index (BMI) 20.4 Physical Exam Narrative General: Alert, oriented, no apparent distress HEENT: Atraumatic, normocephalic Eyes: Anicteric, normal conjunctiva, extraocular movements grossly intact Neck: Supple Respiratory: Expiratory wheezes particularly bases, normal respiratory effort Cardiovascular: Regular rate and rhythm GI: Soft, nontender, nondistended Extremities: No edema Musculoskeletal: Moving all extremities Neuro: No overt focal neurological deficits Skin: No rashes appreciated Psych: Cooperative Results Lab / Micro Data 03/04/25 12:05 03/04/25 12:05 Labs: Laboratory Results - last 24 hr 03/04/25 12:05: WBC 10.4, RBC 2.34 L, Hgb 5.7 L*, Hct 19.8 L, MCV 84.6, MCH 24.4 L, MCHC 28.8 L, RDW Std Deviation 59.4 H, RDW Coeff of Eloisa 19.1 H, Plt Count , MPV 10.8, Immature Gran % (Auto) 1.400 H, Neut % (Auto) 85.1 H, Lymph % (Auto) 5.5 L, Smyth % (Auto) 6.8, Eos % (Auto) 1.0, Baso % (Auto) 0.2, Absolute Neuts (auto) 8.8 H, Absolute Lymphs (auto) 0.57 L, Nucleated RBC % 0.8, Platelet Estimate ADEQUATE, Hypochromasia 2+, Anisocytosis 2+, Sodium 137, Potassium 4.7, Chloride 104, Carbon Dioxide 21.0, Anion Gap 12, BUN 21 H, Creatinine 0.49 L, Estim Creat Clear Calc 47.32 L, Est GFR (MDRD) Non-Af 98, BUN/Creatinine Ratio 41.8 H, Glucose 100 H, Calcium 8.9, Total Bilirubin < 0.15, AST 22, ALT 10, Alkaline Phosphatase 131 H, Total Protein 5.7 L, Albumin 2.5 L, Globulin 3.2, Albumin/Globulin Ratio 0.8 L, Blood Type O POSITIVE, Antibody Screen NEGATIVE, Crossmatch See Detail Micro: Microbiology 03/04/25 14:25 Stool Stool Occult Blood (BRITNI) - Final Occult Blood Positive Imaging Radiology Impression Chest X-Ray 03/04/25 12:44 IMPRESSION: Central venous catheter with port remains in place. Persistent increased density of the right upper lobe. No significant degree of pulmonary edema is noted. Underlying chronic lung changes and emphysema are again seen. No pleural effusion or pneumothorax is evident. The cardiomediastinal silhouette is stable, with a tortuous aorta noted. No evidence of cardiomegaly. Generalized osteopenia is again present. No acute osseous process is seen. Reading Location: [facility] Assessment & Plan Assessment/Plan (1) ABLA (acute blood loss anemia): PLAN: Plan #ABLA suspect 2/2 to GI bleed - Patient with hemoglobin of 5.7 and fecal occult positive -Patient typed and crossed with plans for transfusion -Cycle H&H - IV PPI given slight elevation in BUN and unclear source of bleed - GI consult - N.p.o. at midnight # Mild hypoxia in setting of COPD - Patient 88% on room air and placed on 2 L nasal cannula with oxygen subsequently in high 90s -Continue nebs, suspect patient's shortness of breath is due to her anemia, she has not had any change in her cough, does have wheezing but reports she intermittently has this -There is possibly a chronic component or may have been a poor waveform given she is 98% on 2 L, wean O2 as tolerated -Incentive spirometer - Chest x-ray with no acute process, do not think we need any further workup at this time # History of lung carcinoma - Status post radiation, patient reports she has no active cancer at this time as she has finished treatments - Follows with Dr. Bryant #GERD - PPI as above #Depression/anxiety -Continue home medications #DVT ppx: SCDs Rosa Levine MD Charges/Coding Visit Charges Inpatient E&M: 25934 Init Hosp L2
--- NOTE | 2025-03-04 17:07 | CASEMGMT ---
Care Management Face to Face with patient for initial transition planning/care coordination assessment in the ED.? This personal lines underwriter introduced self and role at [facility]. Patient alert and oriented. Patient willing to participate in assessment and is able to answer all questions appropriately.? Care providers, pharmacy, and demographics verified. 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 Is independent with ADLs and IADLs Transportation: patient drives DME: ?walker, nebulizer, blood pressure cuff HHC: none SNF/Rehab: none Community Resources: none Behavioral Health History: none Patient goals: Patient wishes to discharge home, denies need for home health care at this time. Patient denies any further needs or concerns at this time. Disposition Plan: admission to acute; RN CM/SW to follow for discharge planning needs that may arise.
[2025-03-04] MEDS: Budesonide Respules 0.5 MG/2 ML AMPUL.NEB. INHALATION (17:29)
--- NOTE | 2025-03-04 17:40 | EX.PCM.CON.G ---
Documented by User: Dr. Kwadwo Morris DO 03/04/25 17:48 HPI Consult Data Date of Consult: 03/04/25 HPI Narrative Reason for Consultation: GI bleed HPI Narrative: JUAN HAWKINS, is a 75 F who presents from the oncologist Dr. Bryant with a hemoglobin of 6. After getting it rechecked in the ED was down to 5.7. 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 She was discovered to have progressive disease and was started on immunotherapy. I got to know her about 6 months ago after she developed severe C. difficile colitis resulting in ex lap, sigmoidectomy and creation of a transverse colostomy by Dr. Maria back in June 2023. She underwent a capsule study back in 08/04/2024 for recurrent GI bleeding. It displayed some old blood in the stomach secondary to gastritis. It also displayed nonbleeding duodenal AVMs with enteritis. There were 2 areas of active bleeding in the proximal jejunum along with 2 nonbleeding terminal ileum AVMs and large clots in the colon. She was sent down to [facility] for deep enteroscopy. She was discovered to have a few nonbleeding angiodysplastic lesions in the duodenum and multiple seen in the jejunum. There were treated with APC. There was some tattoo placed in the proximal ileum to determine the maximal site of insertion. [facility] Medical History Presence of colostomy (~06/2023) Non-small cell carcinoma of left lung, stage 3 Anemia Radiation esophagitis NSCLC of upper lobe Cancer related pain Exertional dyspnea Encounter for antineoplastic immunotherapy Headache At risk for deep venous thrombosis Leg edema Hematuria Anemia due to chronic blood loss Rash Wears glasses Wears dentures Cancer Arthritis High cholesterol Easy bruising Restless legs Back pain Gastric reflux Former smoker Shortness of breath on exertion History of edema History of echocardiogram History of stress test Hypertension Cardiology follow-up encounter History of irregular heartbeat Encounter for education COPD (chronic obstructive pulmonary disease) Fatigue Contact with and (suspected) exposure to other viral communicable diseases Generalized weakness Alopecia Hypokalemia Pneumonia COVID-19 Mild aortic stenosis Nicotine dependence Chronic constipation Essential hypertension Hyperlipidemia Benign neoplasm of colon Asthma Home Medications ?Medication ?Instructions ?Recorded ?Last Taken ?Type atorvastatin 10 mg tablet 10 mg PO QHS CHOLESTEROL #90 tabs 04/17/21 03/03/25 Rx Hair prostethesis #1 ea 01/17/23 Unknown Rx gabapentin 300 mg capsule 300 mg PO QHS NERVE PAIN 03/18/23 03/03/25 History dicyclomine 10 mg capsule 10 mg PO BID IRRITABLE BOWELS 08/21/23 03/04/25 History mirtazapine 15 mg tablet 15 mg PO QHS DEPRESSION 08/21/23 03/03/25 History albuterol sulfate 2.5 mg/3 mL 2.5 mg (3 mL) inhalation Q4-6H PRN 02/24/24 Unknown Rx (0.083 %) solution for nebulization shortness of breath or wheezing #180 mL latanoprost 0.005 % eye drops 2 drp ophthalmic (eye) DAILY 02/24/24 03/04/25 History ondansetron HCl 8 mg tablet 8 mg PO TID PRN nausea and vomiting 02/24/24 Unknown History tizanidine 4 mg tablet 4 mg PO QHS 02/24/24 03/03/25 History acetaminophen 325 mg capsule 650 mg PO Q6H PRN pain 08/26/24 Unknown History diphenhydramine HCl 25 mg capsule 25 mg PO TID PRN itching #30 caps 09/30/24 Unknown Rx (Benadryl) lidocaine-prilocaine 2.5 %-2.5 % 1 applic topical ONCE PRN PORT 01/07/25 Unknown Rx topical cream ACCESS 30 days #30 grams fluticasone furoate 100 1 inh inhalation DAILY 03/04/25 03/04/25 History mcg/actuation blister powder for inhalation (Arnuity Ellipta) montelukast 10 mg tablet 10 mg PO QHS ALLERGIES 03/04/25 03/03/25 History nortriptyline 50 mg capsule 50 mg PO QHS 03/04/25 03/03/25 History ferrous sulfate 325 mg (65 mg 325 mg PO QODAY #30 tabs 03/06/25 Unknown Rx iron) tablet pantoprazole 40 mg tablet,delayed 40 mg PO BIDCM ACID REFLUX #60 tabs 03/06/25 Unknown Rx release octreotide,microspheres 20 mg 40 mg IM Q4W #2 ea 03/09/25 03/11/25 Rx intramuscular susp, extended release (Sandostatin LAR Depot) prochlorperazine maleate 10 mg 10 mg PO Q6H PRN nausea and 03/13/25 Unknown History tablet vomiting albuterol sulfate 90 mcg/actuation 2 puff inhalation Q4H PRN 03/23/25 Unknown Rx aerosol inhaler SHORTNESS OF BREATH/WHEEZING #8.5 grams budesonide-formoterol HFA 160 2 puff inhalation BID 03/25/25 Unknown History mcg-4.5 mcg/actuation aerosol inhaler (Symbicort) diphenhydramine HCl 25 mg tablet 25 mg PO TID PRN PRN itching 03/25/25 Unknown History (Banophen) Allergy/AdvReac Type Severity Reaction Status Date / Time watermelon Allergy Intermediate Hives Verified 03/24/25 22:45 Family History Father Cancer spinal Mother Alzheimer's disease Brother Pacemaker Surgical History Hx of colonoscopy History of creation of ostomy Status post Eleno procedure History of cystoscopy History of amputation of finger of right hand History of toe surgery History of cataract extraction History of breast surgery History of D&C History of tonsillectomy History of appendectomy History of hysterectomy Social History household members: spouse pets and animals: Yes (dogs) Smoking Status: Former smoker how long ago did patient quit smokin alcohol intake: former substance use type: does not use ROS Constitutional Constitutional: Denies fatigue, fever(s), poor appetite, weight gain or weight loss Gastrointestinal Gastrointestinal: Denies belching, bloating, change in bowel habits, change in stool character, chewing difficulty, coffee ground emesis, constipation, cramping, diarrhea, dyspepsia, dysphagia, early satiety, excessive flatus, fecal incontinence, heartburn, hematemesis, hematochezia, hemorrhoids, loose stools, melena, nausea, odynophagia, rectal bleeding, tenesmus, vomiting or weight changes Physical Exam Const alert, oriented x3, no apparent distress and healthy appearing General Appearance: cooperative GI normal to inspection, nondistended, normoactive bowel sounds, soft to palpation, non-tender and non-distended Percussion: normal to percussion Rectal Exam: deferred Lab / Micro Data 03/06/25 12:04 03/06/25 06:42 Labs: Laboratory Results - last 24 hr Micro: Microbiology 03/04/25 14:25 Stool Stool Occult Blood (BRITNI) - Final Occult Blood Positive Imaging Radiology Impression Chest X-Ray 03/04/25 12:44 IMPRESSION: Central venous catheter with port remains in place. Persistent increased density of the right upper lobe. No significant degree of pulmonary edema is noted. Underlying chronic lung changes and emphysema are again seen. No pleural effusion or pneumothorax is evident. The cardiomediastinal silhouette is stable, with a tortuous aorta noted. No evidence of cardiomegaly. Generalized osteopenia is again present. No acute osseous process is seen. Reading Location: [place] [id number] Assessment & Plan Assessment/Plan (1) Ischemic bowel disease: (2) Colitis: (3) GIB (gastrointestinal bleeding): QUALIFIERS: GI bleed type/associated pathology: unspecified gastrointestinal hemorrhage type Qualified Code(s): K92.2 - Gastrointestinal hemorrhage, unspecified PLAN: Plan 75-year-old NSCLC lung cancer S/P chemo-radiation therapy. PET/CT on 05/21/2023 reviewed, with history of shows persistent/progressive disease in RUL. She presented with progressive fatigue and shortness of breath. She has a history of bleeding angiodysplastic lesions in the small bowel. She should undergo an EGD with push enteroscopy tomorrow. She will be on a clear liquid diet up until midnight. Charges/Coding Visit Charges Inpatient E&M: 32283 Init Hosp L3 Documented by User: Dr. Savage Valdivia MD 03/29/25 10:25 HPI Consult Data Date of Consult: 03/29/25 [facility] Medical History Presence of colostomy (~06/2023) Non-small cell carcinoma of left lung, stage 3 Anemia Radiation esophagitis NSCLC of upper lobe Cancer related pain Exertional dyspnea Encounter for antineoplastic immunotherapy Headache At risk for deep venous thrombosis Leg edema Hematuria Anemia due to chronic blood loss Rash Wears glasses Wears dentures Cancer Arthritis High cholesterol Easy bruising Restless legs Back pain Gastric reflux Former smoker Shortness of breath on exertion History of edema History of echocardiogram History of stress test Hypertension Cardiology follow-up encounter History of irregular heartbeat Encounter for education COPD (chronic obstructive pulmonary disease) Fatigue Contact with and (suspected) exposure to other viral communicable diseases Generalized weakness Alopecia Hypokalemia Pneumonia COVID-19 Mild aortic stenosis Nicotine dependence Chronic constipation Essential hypertension Hyperlipidemia Benign neoplasm of colon Asthma Home Medications ?Medication ?Instructions ?Recorded ?Last Taken ?Type atorvastatin 10 mg tablet 10 mg PO QHS CHOLESTEROL #90 tabs 04/17/21 03/03/25 Rx Hair prostethesis #1 ea 01/17/23 Unknown Rx gabapentin 300 mg capsule 300 mg PO QHS NERVE PAIN 03/18/23 03/03/25 History dicyclomine 10 mg capsule 10 mg PO BID IRRITABLE BOWELS 08/21/23 03/04/25 History mirtazapine 15 mg tablet 15 mg PO QHS DEPRESSION 08/21/23 03/03/25 History albuterol sulfate 2.5 mg/3 mL 2.5 mg (3 mL) inhalation Q4-6H PRN 02/24/24 Unknown Rx (0.083 %) solution for nebulization shortness of breath or wheezing #180 mL latanoprost 0.005 % eye drops 2 drp ophthalmic (eye) DAILY 02/24/24 03/04/25 History ondansetron HCl 8 mg tablet 8 mg PO TID PRN nausea and vomiting 02/24/24 Unknown History tizanidine 4 mg tablet 4 mg PO QHS 02/24/24 03/03/25 History acetaminophen 325 mg capsule 650 mg PO Q6H PRN pain 08/26/24 Unknown History diphenhydramine HCl 25 mg capsule 25 mg PO TID PRN itching #30 caps 09/30/24 Unknown Rx (Benadryl) lidocaine-prilocaine 2.5 %-2.5 % 1 applic topical ONCE PRN PORT 01/07/25 Unknown Rx topical cream ACCESS 30 days #30 grams fluticasone furoate 100 1 inh inhalation DAILY 03/04/25 03/04/25 History mcg/actuation blister powder for inhalation (Arnuity Ellipta) montelukast 10 mg tablet 10 mg PO QHS ALLERGIES 03/04/25 03/03/25 History nortriptyline 50 mg capsule 50 mg PO QHS 03/04/25 03/03/25 History ferrous sulfate 325 mg (65 mg 325 mg PO QODAY #30 tabs 03/06/25 Unknown Rx iron) tablet pantoprazole 40 mg tablet,delayed 40 mg PO BIDCM ACID REFLUX #60 tabs 03/06/25 Unknown Rx release octreotide,microspheres 20 mg 40 mg IM Q4W #2 ea 03/09/25 03/11/25 Rx intramuscular susp, extended release (Sandostatin LAR Depot) prochlorperazine maleate 10 mg 10 mg PO Q6H PRN nausea and 03/13/25 Unknown History tablet vomiting albuterol sulfate 90 mcg/actuation 2 puff inhalation Q4H PRN 03/23/25 Unknown Rx aerosol inhaler SHORTNESS OF BREATH/WHEEZING #8.5 grams budesonide-formoterol HFA 160 2 puff inhalation BID 03/25/25 Unknown History mcg-4.5 mcg/actuation aerosol inhaler (Symbicort) diphenhydramine HCl 25 mg tablet 25 mg PO TID PRN PRN itching 03/25/25 Unknown History (Banophen) Allergy/AdvReac Type Severity Reaction Status Date / Time watermelon Allergy Intermediate Hives Verified 03/24/25 22:45 Family History Father Cancer spinal Mother Alzheimer's disease Brother Pacemaker Surgical History Hx of colonoscopy History of creation of ostomy Status post [place] procedure History of cystoscopy History of amputation of finger of right hand History of toe surgery History of cataract extraction History of breast surgery History of D&C History of tonsillectomy History of appendectomy History of hysterectomy Social History household members: spouse pets and animals: Yes (dogs) Smoking Status: Former smoker how long ago did patient quit smokin alcohol intake: former substance use type: does not use Lab / Micro Data 03/06/25 12:04 03/06/25 06:42 Assessment & Plan Assessment/Plan (1) Ischemic bowel disease: (2) Colitis: (3) GIB (gastrointestinal bleeding): QUALIFIERS: GI bleed type/associated pathology: unspecified gastrointestinal hemorrhage type Qualified Code(s): K92.2 - Gastrointestinal hemorrhage, unspecified
[2025-03-04] MEDS: Pantoprazole Sodium 40 MG in 0.9% Normal Saline (100mL MB+) 100 ML 330 MG IV ×2 (17:58→21:50)
[2025-03-04] MEDS: 0.9% Normal Saline (1000mL) 1,000 ML 50 ML IV (17:58)
[2025-03-04] MEDS: Mirtazapine 15 MG Tablet PO (20:28)
[2025-03-04] MEDS: Atorvastatin Calcium 10 MG Tablet PO (20:28)
[2025-03-04] MEDS: Nortriptyline 25 MG Capsule 50 MG PO (20:28)
[2025-03-04] MEDS: Gabapentin 300 MG Capsule PO (20:30)
[2025-03-04] MEDS: 0.9% Saline Lock 10 ML Syringe IV (21:51)
[2025-03-05] VITALS (18 sets, daily range): BP systolic 84–140; BP diastolic 53–94; PULSE 110–118; RESP 14–28; TEMP 36–37.2; O2SAT 92–100; BMI 19.3
--- NOTE | 2025-03-05 01:04 | NURSING ---
original order for q6h H&Hs cancelled and added back in order to retime d/t pt. receiving blood transfusion and policy of waiting 1 hour post blood transfusion to draw H&Hs. informed lab of orders being retimed in order to receive accurate lab results.
[2025-03-05 01:10] LABS: Hematocrit 27.8 % (37-47); Hemoglobin 8.8 g/dL (12.0-15.0)
[2025-03-05] MEDS: Ondansetron 4 MG/2 ML Vial IV (02:43)
[2025-03-05] MEDS: 0.9% Saline Lock 10 ML Syringe IV ×3 (02:44→21:25)
[2025-03-05 04:49] LABS: Absolute Lymphocyte Count 0.36 X10^3/uL (0.83-4.51); Absolute Neutrophil Count 5.8 X10^3/uL (2.0-7.7); Basophil# 0.05 X10^3/uL; Basophil% 0.7 % (0-1); Eosinophil# 0.26 X10^3/uL; Eosinophils% 3.6 % (0-5); Hematocrit 29.1 % (37-47); Hemoglobin 9.1 g/dL (12.0-15.0); Lymphocyte # 0.36 X10^3/ul (0.83-4.51); Lymphocyte % 4.9 % (19-41); Mean Corp Hgb Conc 31.3 g/dL (32-36); Mean Corpuscular Hgb 26.8 pg (27.0-32.0); Mean Corpuscular Volume 85.8 fL (81-99); Mean Platelet Vol. 10.1 fl (6.2-12.0); Monocyte# 0.75 X10^3/uL; Monocyte% 10.2 % (0-10); Neutrophil # 5.77 X10^3/uL (2.7-7.7); Neutrophil % 78.8 % (47-70); POSITIVE DIFFERENTIAL YES; Platelet Count 409 K/mm3 (150-450); RBC Distribution Width CV 17.5 % (11.6-14.6); RBC Distribution Width SD 55.1 fl (35.1-43.9); Red Blood Count 3.39 M/mm3 (4.2-5.4); White Blood Count 7.3 K/mm3 (4.4-11.0)
[2025-03-05 05:02] LABS: International Normalized Ratio 1.1
[2025-03-05 05:21] LABS: Anion Gap 7 (5-15); BUN 12 mg/dL (4-19); BUN/Creat Ratio 21.1 RATIO (10-20); Calcium,Total 8.9 mg/dL (7.6-11.0); Carbon Dioxide 26.3 mmol/L (21.0-32.0); Chloride 104 mmol/L (98-108); Creatinine, Serum 0.55 mg/dL (0.70-1.20); EST Glomerular Filtration Rate 95 (>60); Estimated Creatinine Clearance 45.24 ml/min (50-250); Glucose 91 mg/dL (70-99); Potassium 4.5 mmol/L (3.3-5.1); Sodium Level 137 mmol/L (133-145)
[2025-03-05] MEDS: Ipratropium/Albuterol Sulfate 3 ML AMPUL.NEB INHALATION ×2 (07:19→20:50)
[2025-03-05] MEDS: Budesonide Respules 0.5 MG/2 ML AMPUL.NEB. INHALATION ×2 (07:20→20:51)
--- NOTE | 2025-03-05 08:22 | PCM.PN.HOSP ---
Reason for Visit Reason for Visit: Diagnoses Acute posthemorrhagic anemia (03/04/25) Subjective Subjective Had been having blood in colostomy bag. Objective Data Objective Data Vital Signs: Vital Signs Temp Pulse Resp BP Pulse Ox O2 Del Method O2 Flow Rate 37.2 C 114 H 20 H 140/80 H 92 Nasal Cannula 2 03/05/25 03:30 03/05/25 07:21 03/05/25 07:21 03/05/25 03:30 03/05/25 07:21 03/05/25 07:21 03/05/25 07:21 Oxygen Flow Rate (L/min) 2 Oxygen Delivery Method Nasal Cannula Weight: 47.9 kg Body Mass Index (BMI) 19.3 Intake & Output: Intake and Output for Last 24 Hours 03/03/25 03/04/25 03/05/25 23:59 23:59 23:59 Intake Total 790.0 / 790.0 330 / 330 Balance 790.0 / 790.0 330 / 330 Lab / Micro Data 03/05/25 12:22 03/05/25 04:21 Labs: Laboratory Results - last 24 hr 03/04/25 00:58: Hgb 8.8 L, Hct 27.8 L 03/04/25 12:05: WBC 10.4, RBC 2.34 L, Hgb 5.7 L*, Hct 19.8 L, MCV 84.6, MCH 24.4 L, MCHC 28.8 L, RDW Std Deviation 59.4 H, RDW Coeff of Eloisa 19.1 H, Plt Count , MPV 10.8, Immature Gran % (Auto) 1.400 H, Neut % (Auto) 85.1 H, Lymph % (Auto) 5.5 L, [place] % (Auto) 6.8, Eos % (Auto) 1.0, Baso % (Auto) 0.2, Absolute Neuts (auto) 8.8 H, Absolute Lymphs (auto) 0.57 L, Nucleated RBC % 0.8, Platelet Estimate ADEQUATE, Hypochromasia 2+, Anisocytosis 2+, Sodium 137, Potassium 4.7, Chloride 104, Carbon Dioxide 21.0, Anion Gap 12, BUN 21 H, Creatinine 0.49 L, Estim Creat Clear Calc 47.32 L, Est GFR (MDRD) Non-Af 98, BUN/Creatinine Ratio 41.8 H, Glucose 100 H, Calcium 8.9, Total Bilirubin < 0.15, AST 22, ALT 10, Alkaline Phosphatase 131 H, Total Protein 5.7 L, Albumin 2.5 L, Globulin 3.2, Albumin/Globulin Ratio 0.8 L, Blood Type O POSITIVE, Antibody Screen NEGATIVE, Crossmatch See Detail 03/05/25 04:21: WBC 7.3, RBC 3.39 L, Hgb 9.1 L, Hct 29.1 L, MCV 85.8, MCH 26.8 L, MCHC 31.3 L D, RDW Std Deviation 55.1 H, RDW Coeff of Eloisa 17.5 H, Plt Count 409, MPV 10.1, Immature Gran % (Auto) 1.800 H, Neut % (Auto) 78.8 H, Lymph % (Auto) 4.9 L, [place] % (Auto) 10.2 H, Eos % (Auto) 3.6, Baso % (Auto) 0.7, Absolute Neuts (auto) 5.8, Absolute Lymphs (auto) 0.36 L, Nucleated RBC % 1.0, PT 14.0, INR 1.1, APTT 31.0, Sodium 137, Potassium 4.5, Chloride 104, Carbon Dioxide 26.3, Anion Gap 7, BUN 12, Creatinine 0.55 L, Estim Creat Clear Calc 45.24 L, Est GFR (MDRD) Non-Af 95, BUN/Creatinine Ratio 21.1 H, Glucose 91, Calcium 8.9 Micro: Microbiology 03/04/25 14:25 Stool Stool Occult Blood (BRITNI) - Final Occult Blood Positive Radiography Diagnostic Testing: Radiology Impression Chest X-Ray 03/04/25 12:44 IMPRESSION: Central venous catheter with port remains in place. Persistent increased density of the right upper lobe. No significant degree of pulmonary edema is noted. Underlying chronic lung changes and emphysema are again seen. No pleural effusion or pneumothorax is evident. The cardiomediastinal silhouette is stable, with a tortuous aorta noted. No evidence of cardiomegaly. Generalized osteopenia is again present. No acute osseous process is seen. Reading Location: [place] [id number] Physical Exam Const alert and no apparent distress Resp normal respiratory effort, no retractions, no use of accessory muscles and clear to auscultation bilaterally Cardio regular rate, regular rhythm, S1 normal heart sound and S2 normal heart sound GI normal to inspection, nondistended, normoactive bowel sounds, soft to palpation, non-tender and non-distended Extremity normal to inspection and full ROM Neuro Sensorium / Orientation: awake and alert Assessment & Plan Assessment/Plan (1) ABLA (acute blood loss anemia): PLAN: Secondary to GIB Hg 5.7 on admission, now up to 9.1. Transfused 2 units PRBCs improved (2) GIB (gastrointestinal bleeding): QUALIFIERS: GI bleed type/associated pathology: unspecified gastrointestinal hemorrhage type Qualified Code(s): K92.2 - Gastrointestinal hemorrhage, unspecified PLAN: Unclear source. H/o Bleeding angiodysplastic lesions in the small bowel. GI consulted. EGD planned. PLAN: Plan Chronic conditions: COPD lung cancer: s/p XRT. Follow up with Dr. Bryant of oncology Depression/anxiety: VTE prophylaxis: SCDs. Charges/Coding Visit Charges Inpatient E&M: 14554 Subs Hosp L2
[2025-03-05] MEDS: Pantoprazole Sodium 40 MG in 0.9% Normal Saline (100mL MB+) 100 ML 330 MG IV ×2 (09:25→21:30)
[2025-03-05] MEDS: Latanoprost 0.005% 1 Bottle 2 DRP OPHTHALMIC (09:26)
[2025-03-05 12:33] LABS: Hematocrit 28.6 % (37-47); Hemoglobin 8.9 g/dL (12.0-15.0)
--- NOTE | 2025-03-05 12:33 | NURSING ---
Called report to Radha in [facility].
[2025-03-05] MEDS: Lactated Ringers 1,000 ML 15 ML IV (13:00)
--- NOTE | 2025-03-05 13:12 | PRE.ANES_ITS ---
ASA Classification* ASA Classification ASA Classification: 3 and E Assessment & Plan Anesthesia* Anesthesia Assessment Anesthesia Assessment: Discussed sedation and/or anesthesia options, risks, benefits, and alternatives with patient/parents/legal guardian/POA. Questions invited. The patient/parents/legal guardian/POA seems to understand and agrees to proceed with anesthesia plan. Reviewed the physical assessment, medical history, allergy history and patient home medications list prior to surgery/procedure/anesthetic and documented any changes. Performed airway and anesthesia risk assessments. Anesthesia Type Anesthesia Type: MAC (discussed GA with ETT as backup plan, although patient is DNR no intubation in chart she understands that our backup plan for the EGD is GA with ETT and that there is a chance for postop ventilation with ETT. She is okay with rescinding DNR no intubation for the EGD today.) History Source History Obtained from:: Patient and Chart Anesthesia Focused Assessment* Temperature: 97.8 F Pulse Rate: 113 Blood Pressure: 139/70 Respiratory Rate: 22 Pulse Ox: 97 Oxygen Delivery Method: Nasal Cannula Oxygen Flow Rate (L/min): 3 Airway Assessment Mouth opens: >3 cm Mallampati Score: I Teeth Condition: Dentures and Full Neck Range of motion (ROM): Full ROM Focused Labs Anesthesia Preop lab: CBC WBC 7.3 K/mm3 (4.4-11.0) 03/05/25 04:21 03/05/25 RBC 3.39 M/mm3 (4.2-5.4) L 03/05/25 04:21 03/05/25 Hgb 8.9 g/dL (12.0-15.0) L 03/05/25 12:22 03/05/25 Hct 28.6 % (37-47) L 03/05/25 12:22 03/05/25 Plt Count 409 K/mm3 (150-450) 03/05/25 04:21 03/05/25 CHEMISTRY Potassium 4.5 mmol/L (3.3-5.1) 03/05/25 04:21 03/05/25 Sodium 137 mmol/L (133-145) 03/05/25 04:21 03/05/25 Magnesium 1.8 mg/dL (1.5-2.2) 01/07/25 09:10 01/07/25 Phosphorus 3.2 mg/dL (2.7-4.5) 01/07/25 09:10 01/07/25 BUN 12 mg/dL (4-19) 03/05/25 04:21 03/05/25 Creatinine 0.55 mg/dL (0.70-1.20) L 03/05/25 04:21 Glucose 91 mg/dL (70-99) 03/05/25 04:21 03/05/25 TSH 1.560 uIU/mL (0.300-4.200) 02/18/25 09:59 /02/19 COAG PT 14.0 SECONDS (11.7-14.9) 03/05/25 04:21 Pre-Assessment Diagnosis/Proposed Procedure Planned Operative Procedure(s): EGD Anesthesia History 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 When Was Last Pacemaker Check QUESTION #4 FULL TEXT: You/Your Family Experience fever (hyperthermia) with Anesthesia Last Oral Intake Last Oral intake: Last Oral Intake NPO since 00:00 03/05/25 11:40 Meds taken in AM with sips of No 03/05/25 11:40 water? Meds patient instructed to take am of surgery PONV PONV - laundry housekeeping aide: PONV - laundry housekeeping aide Female HX of Motion Sickness HX of N/V After Surgery Non-Smoker Duration of Surgery greater than 60 minutes Number of Risk Factors PONV Score Height & Weight Height & Weight: Anesthesia: Height & Weight Height 5 ft 2 in 03/05/25 11:40 Weight: 47.9 kg 03/05/25 11:40 Body Mass Index (BMI) 19.3 03/05/25 11:40 Respiratory Assessment Respiratory Assessment - laundry housekeeping aide: Respiratory Tract Infection Hx - laundry housekeeping aide Hx Respiratory Tract Infection No 03/05/25 11:34 STOP Sleep Apnea STOP Sleep Apnea - laundry housekeeping aide: STOP Sleep Apnea - laundry housekeeping aide Hx Hypertension No 03/04/25 16:53 Hx Sleep Apnea No 03/04/25 16:53 CPAP No 03/04/25 16:53 BIPAP No 03/04/25 16:53 Do you snore loudly (louder No 03/04/25 16:53 than talking or can be heard Do you often feel tired/ No 03/04/25 16:53 fatigued/ sleepy during daytime? Has anyone observed you stop No 03/04/25 16:53 breathing during sleep? STOP Results Negative 03/04/25 16:53 QUESTION #5 FULL TEXT : Do you snore loudly (louder than talking or can be heard through closed doors)? 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 Specify any problems Hx of Preganancy in last 3 N/A 03/04/25 16:53 Months Nurse Filling Out Transfusion [id number] 03/04/25 16:53 & Questions: Date: 03/04/25 03/04/25 16:53 Time: 16:57 03/04/25 16:53 Patient unable to answer at this time (ie. confused, unrespo /Reproduction History /Reproductive History - laundry housekeeping aide: /Reproductive Hx- laundry housekeeping aide Hx Now No 03/05/25 11:34 Gestational Age (in weeks): EDC: Hx Hx Para Hx Section SAB No 03/05/25 11:34 Active Medications Active Medications: Current Medications Generic Name Dose Route Start Last Admin Trade Name Freq PRN Reason Stop Dose Admin Acetaminophen 650 mg 03/04/25 16:50 Acetaminophen 325 Mg Tablet PO Q6H PRN PRN Pain 1-10 Or Fever >100.7 Albuterol Sulfate 2.5 mg 03/04/25 16:50 Albuterol 2.5 Mg/3 Ml Vial.Neb. INHALATION Q2H PRN PRN SOB &/OR WHEEZING Albuterol/Ipratropium 3 ml 03/04/25 16:50 03/05/25 07:19 Ipratropium/Albuterol Sulfate 3 Ml Ampul.Neb INHALATION 3 ml Q6HWA.RT MYRA Administration Atorvastatin Calcium 10 mg 03/04/25 22:00 03/04/25 20:28 Atorvastatin Calcium 10 Mg Tablet PO 10 mg QHS MYRA Administration Budesonide 0.5 mg 03/04/25 17:00 03/05/25 07:20 Budesonide Respules 0.5 Mg/2 Ml Ampul.Neb. INHALATION 0.5 mg Q12H.RT MYRA Administration Gabapentin 300 mg 03/04/25 22:00 03/04/25 20:30 Gabapentin 300 Mg Capsule PO 300 mg QHS MYRA Administration Pantoprazole Sodium 40 mg/ 110 mls @ 330 mls/hr 03/04/25 16:50 03/05/25 09:45 Sodium Chloride IV Infused Q12 MYRA Infusion Sodium Chloride 500 mls @ 15 mls/hr 03/04/25 16:59 IV PRN PRN Blood Transfusion Sodium Chloride 250 mls @ 15 mls/hr 03/04/25 16:59 IV .[id number] PRN Saline Flush Sodium Chloride 250 mls @ 15 mls/hr 03/04/25 16:59 IV .[id number] PRN Additional IVPB Infusion Lactated Ringer's 1,000 mls @ 15 mls/hr 03/05/25 13:00 IV .Q48H MYRA Latanoprost 2 drp 03/05/25 10:00 03/05/25 09:26 Latanoprost 0.005% 1 Bottle OPHTHALMIC 2 drp DAILY MYRA Administration Melatonin 10 mg 03/04/25 16:50 Melatonin 10 Mg Tablet PO QHS PRN PRN INSOMNIA Mirtazapine 15 mg 03/04/25 22:00 03/04/25 20:28 Mirtazapine 15 Mg Tablet PO 15 mg QHS MYRA Administration Nortriptyline HCl 50 mg 03/04/25 22:00 03/04/25 20:28 Nortriptyline 25 Mg Capsule PO 50 mg QHS MYRA Administration Ondansetron HCl 4 mg 03/04/25 16:50 03/05/25 02:43 Ondansetron 4 Mg/2 Ml Vial IV 4 mg Q8H PRN PRN Administration NAUSEA/VOMITING Senna/Docusate Sodium 2 tablet 03/04/25 16:50 Senna/Docusate Sodium 1 Tablet PO BID PRN PRN Constipation Sodium Chloride 10 - 40 ml 03/04/25 16:59 03/05/25 09:25 0.9% Saline Lock 10 Ml Syringe IV 10 ml UD PRN Administration Port-a-Cath (VAD)/R Port Flush Sodium Chloride 10 - 40 ml 03/04/25 16:59 0.9 % Nacl (Sterile) Posiflush 10 Ml IV UD PRN Port access or dressing change Tizanidine HCl 4 mg 03/04/25 22:00 03/05/25 00:15 Tizanidine Hcl 2 Mg Tablet PO Not Given QHS MYRA PFSH Medical History Cancer related pain Exertional dyspnea Encounter for antineoplastic immunotherapy Headache At risk for deep venous thrombosis Leg edema Hematuria Anemia due to chronic blood loss Rash Wears glasses Wears dentures Cancer Arthritis High cholesterol Easy bruising Restless legs Back pain Gastric reflux Former smoker Shortness of breath on exertion History of edema History of echocardiogram History of stress test Hypertension Cardiology follow-up encounter History of irregular heartbeat Encounter for education COPD (chronic obstructive pulmonary disease) Fatigue Contact with and (suspected) exposure to other viral communicable diseases Generalized weakness Alopecia Hypokalemia Pneumonia COVID-19 Mild aortic stenosis Nicotine dependence Chronic constipation Essential hypertension Hyperlipidemia Benign neoplasm of colon Asthma Home Medications ?Medication ?Instructions ?Recorded ?Last Taken ?Type atorvastatin 10 mg tablet 10 mg PO QHS CHOLESTEROL #9 0 tabs 04/17/21 03/03/25 Rx Hair prostethesis #1 ea 01/17/23 Unknown Rx gabapentin 300 mg capsule 300 mg PO QHS NERVE PAIN 03/03/25 History pantoprazole 40 mg tablet,delayed 40 mg PO DAILY ACID REFLUX #30 tabs 07/25/23 03/04/25 Rx release dicyclomine 10 mg capsule 10 mg PO BID IRRITABLE BOWEL S 08/21/23 03/04/25 History mirtazapine 15 mg tablet 15 mg PO QHS DEPRESSION 07/2903/03/25 History albuterol sulfate 2.5 mg/3 mL 2.5 mg (3 mL) inhalation Q4-6H PRN 02/24/24 Unknown Rx (0.083 %) solution for nebulization shortness of breat h or wheezing #180 mL albuterol sulfate 90 mcg/actuation 2 puff inhalation Q 4H PRN 02/24/24 Unknown Rx aerosol inhaler SHORTNESS OF BREATH/WHEEZING #8.5 grams latanoprost 0.005 % eye drops 2 drp ophthalmic (eye) D AILY 02/24/24 03/04/25 History ondansetron HCl 8 mg tablet 8 mg PO TID PRN nausea and vomiting 02/24/24 Unknown History tizanidine 4 mg tablet 4 mg PO QHS 02/24/24 5 History acetaminophen 325 mg capsule 650 mg PO Q6H PRN pain Unknown History diphenhydramine HCl 25 mg capsule 25 mg PO TID PRN itc naseem #30 caps 09/30/24 Unknown Rx (Benadryl) lidocaine-prilocaine 2.5 %-2.5 % 1 applic topical ONCE PRN PORT 01/07/25 Unknown Rx topical cream ACCESS 30 days #30 grams fluticasone furoate 100 1 inh inhalation DAILY 03/0403/04/25 History mcg/actuation blister powder for inhalation (Arnuity Ellipta) montelukast 10 mg tablet 10 mg PO QHS ALLERGIES 03/0403/03/25 History nortriptyline 50 mg capsule 50 mg PO QHS 03/04/2505/21 History octreotide,microspheres 20 mg 40 mg IM Q4W #2 ea 03/05 Unknown Rx intramuscular susp, extended release (Sandostatin [place]) Allergy/AdvReac Type Severity Reaction Status Date / Time watermelon Allergy Intermediate Hives Verified 03/04/25 11:19 Family History Father Cancer spinal Mother Alzheimer's disease Brother Pacemaker Surgical History Hx of colonoscopy History of creation of ostomy Status post Eleno procedure History of cystoscopy History of amputation of finger of right hand History of toe surgery History of cataract extraction History of breast surgery History of D&C History of tonsillectomy History of appendectomy History of hysterectomy Social History household members: spouse pets and animals: Yes (dogs) Smoking Status: Former smoker how long ago did patient quit smokin alcohol intake: former substance use type: does not use Review of Systems (Anesthesia) ROS Narrative System reviewed and no additional complaints, except as documented. Physical Exam Const alert and oriented x3 HEENT Teeth and Gingiva: dentures Neck full ROM Resp Resp Narrative: on NC, dry cough Auscultation: wheezes Cardio Cardio Narrative: tachy
--- NOTE | 2025-03-05 13:42 | PCM.PN.BLA ---
Progress Note Patient received 2 units of packed red blood cells. She is for EGD will put enteroscopy today. Physical Exam Const alert and oriented x3 HEENT Teeth and Gingiva: dentures Neck full ROM Resp Resp Narrative: on NC, dry cough Auscultation: wheezes Cardio Cardio Narrative: tachy Assessment & Plan Assessment/Plan (1) Ischemic bowel disease: (2) Colitis: (3) GIB (gastrointestinal bleeding): QUALIFIERS: GI bleed type/associated pathology: unspecified gastrointestinal hemorrhage type Qualified Code(s): K92.2 - Gastrointestinal hemorrhage, unspecified PLAN: Plan 75-year-old NSCLC lung cancer S/P chemo-radiation therapy. PET/CT on 05/21/2023 reviewed, with history of shows persistent/progressive disease in RUL. She presented with progressive fatigue and shortness of breath. She has a history of bleeding angiodysplastic lesions in the small bowel. She should undergo an EGD with push enteroscopy tomorrow. She will be on a clear liquid diet up until midnight. 03/05/2025-all questions and concerns answered prior to the procedure. Patient was explained alternatives, risk and benefits include understandably, infection, sepsis, perforation, need for emergent . She will have an ASA of 3. Visit Charges Inpatient E&M: 97289 Subs Hosp L3
--- NOTE | 2025-03-05 14:06 | PCM.POST.ANE ---
Anesthesia: Postop Eval I Current Vital Signs Temperature: 97 F Pulse Rate: 115 Blood Pressure: 105/94 Respiratory Rate: 14 Pulse Ox: 95 Oxygen Delivery Method: Simple Mask Assessment Airway patent: Yes Spontaneous unlabored respirations: Yes Mental status: Awake nausea: No Vomiting: No Anesthesia Complication: No Fluid Hydration Crystalloid volume administer (ml): 100 Total IV fluid infused: 100 Progress Note Anesthesia document: Postop Eval 1 completed: Yes
--- NOTE | 2025-03-05 14:12 | OP.EGD_ITS ---
Patient Name: Domenica Lezama Procedure Date: 03/05/2025 1:39 PM Date of : 1950 Age: 75 Procedure: Upper GI endoscopy Indications: Iron deficiency anemia, Recent gastrointestinal bleeding Providers: Kwadwo Morris DO Medicines: Monitored Anesthesia Care Patient Profile: This is a 75 year old female. Refer to note in patient chart for documentation of history and physical. Patient has symptoms. Complications: No immediate complications. Procedure: Pre-Anesthesia Assessment: - Prior to the procedure, a History and Physical was performed, and patient medications and allergies were reviewed. The patient is competent. The risks and benefits of the procedure and the sedation options and risks were discussed with the patient. All questions were answered and informed consent was obtained. Patient identification and proposed procedure were verified by the physician in the pre-procedure area. Mental Status Examination: alert and oriented. Airway Examination: normal oropharyngeal airway and neck mobility. Respiratory Examination: clear to auscultation. CV Examination: normal. Prophylactic Antibiotics: The patient does not require prophylactic antibiotics. Prior Anticoagulants: The patient has taken no anticoagulant or antiplatelet agents except for NSAID medication. ASA Grade Assessment: II - A patient with mild systemic disease. After reviewing the risks and benefits, the patient was deemed in satisfactory condition to undergo the procedure. The anesthesia plan was to use monitored anesthesia care (MAC). Immediately prior to administration of medications, the patient was re-assessed for adequacy to receive sedatives. The heart rate, respiratory rate, oxygen saturations, blood pressure, adequacy of pulmonary ventilation, and response to care were monitored throughout the procedure. The physical status of the patient was re-assessed after the procedure. After obtaining informed consent, the endoscope was passed under direct vision. Throughout the procedure, the patient's blood pressure, pulse, and oxygen saturations were monitored continuously. The Colonoscope was introduced through the mouth, and advanced to the jejunum. Small bowel enteroscopy was deemed necessary. The upper GI endoscopy was accomplished without difficulty. The patient tolerated the procedure well. Scope In: 1:54:41 PM Scope Out: 2:04:36 PM Total Procedure Duration Time 0 hours 9 minutes 55 seconds Findings: The examined esophagus was normal. A single 5 mm angiodysplastic lesion with no bleeding was found in the stomach. Coagulation for destruction of remaining portion of lesion using heater probe was successful. Estimated blood loss was minimal. Two 5 mm angiodysplastic lesions with bleeding were found in the third portion of the duodenum. Coagulation for hemostasis using heater probe was successful. Estimated blood loss was minimal. Impression: - Normal esophagus. - A single non-bleeding angiodysplastic lesion in the stomach. Treated with a heater probe. - Two bleeding angiodysplastic lesions in the duodenum. Treated with a heater probe. - No specimens collected. Recommendation: - Discharge patient to home. - Resume previous diet. - Continue present medications. Procedure Code(s): --- Professional --- 70652, Small intestinal endoscopy, enteroscopy beyond second portion of duodenum, not including ileum; with ablation of tumor(s), polyp(s), or other lesion(s) not amenable to removal by hot biopsy forceps, bipolar cautery or snare technique 95330, 59,51, Small intestinal endoscopy, enteroscopy beyond second portion of duodenum, not including ileum; with control of bleeding (eg, injection, bipolar cautery, unipolar cautery, laser, heater probe, stapler, plasma sorting livestock worker) CPT copyright 2021 [employer]. All rights reserved. The codes documented in this report are preliminary and upon cpc coder review may be revised to meet current compliance requirements. Kwadwo Morris DO 03/05/2025 2:12:18 PM This report has been signed electronically. Number of Addenda: 0 Note Initiated On: 03/05/2025 1:39 PM
--- NOTE | 2025-03-05 14:13 | OP.CCLET_ITS ---
03/05/2025 Hernandez Mcqueen MD [address] [place] [id number] Re : Upper GI endoscopy procedure for Domenicabrielle Lezama Dear Dr. Mcqueen This procedure was performed on Wednesday, March 05, 2025. My impressions and recommendations are as follows: Impressions : - Normal esophagus. - A single non-bleeding angiodysplastic lesion in the stomach. Treated with a heater probe. - Two bleeding angiodysplastic lesions in the duodenum. Treated with a heater probe. - No specimens collected. Recommendations : - Discharge patient to home. - Resume previous diet. - Continue present medications. My findings are described in the full procedure note, which is enclosed. If I can be of further assistance, please feel free to contact me at . Sincerely, Kwadwo Morris, 03/05/2025 2:12:18 PM This report has been signed electronically.
--- NOTE | 2025-03-05 15:10 | CASEMGMT ---
Addendum entered by Kristy Tripp 03/05/25 15:36: Patient qualifies for oxygen at 2lpm continuously, script received and send to [facility] via [facility] with arrangements for tank to be delivered to patient's room. JARED BURRELL updated patient and in room. Patient and had no further questions or concerns. Original Note: JARED BURRELL in to discuss needs at discharge. Patient denies HHC or outpatient therapy at discharge. RN CM discuss possible home oxygen at discharge. Patient prefers [facility] and that's who her has for home oxygen. RN ASHANTI infomed patient that [facility] does not do weekend setups. RN ASHANTI called [facility] and they requested that patient be tested for oxygen today for weekend discharge. JARED BURRELL updated patient and nursing and testing being preformed at this time, awaiting results.
--- NOTE | 2025-03-05 15:15 | POSTOPAN2_ITS ---
Anesthesia Postop Eval I Sum Postop Eval Completion status Anesthesia document: Postop Eval 1 completed: Yes Anesthesia Postop Eval I Summary Anesthesia Postop Eval I Summary: Anesthesia Postop Eval I: Assessment Summary Airway patent Yes 03/05/25 14:07 LEGAL EXECUTIVE ASSISTANT.HBARR Spontaneous unlabored Yes 03/05/25 14:07 LEGAL EXECUTIVE ASSISTANT.HBARR respirations Mental status Awake 03/05/25 14:07 LEGAL EXECUTIVE ASSISTANT.HBARR nausea No 03/05/25 14:07 LEGAL EXECUTIVE ASSISTANT.HBARR Vomiting No 03/05/25 14:07 LEGAL EXECUTIVE ASSISTANT.HBARR Anesthesia Postop Eval I: Fluid Summary Crystalloid volume administer 100 03/05/25 14:07 LEGAL EXECUTIVE ASSISTANT.HBARR (ml) Colloids volume administered ( ml) Blood Product volume administered (ml) Total IV fluid infused 100 03/05/25 14:07 LEGAL EXECUTIVE ASSISTANT.HBARR Anesthesia Postop Eval I: Summary Notes Anesthesia Complication No 03/05/25 14:07 LEGAL EXECUTIVE ASSISTANT.HBARR Anesthesia Complication Comment: Post-operative progress note Anesthesia: Postop Eval II Evaluation Mental status: Awake and Calm Pain Level: 2 nausea: No Vomiting: No
--- NOTE | 2025-03-05 15:15 | PCM.POSTANE2 ---
Anesthesia Postop Eval I Sum Postop Eval Completion status Anesthesia document: Postop Eval 1 completed: Yes Anesthesia Postop Eval I Summary Anesthesia Postop Eval I Summary: Anesthesia Postop Eval I: Assessment Summary Airway patent Yes 03/05/25 14:07 SUPERINTENDENT SERVICE.HBARR Spontaneous unlabored Yes 03/05/25 14:07 SUPERINTENDENT SERVICE.HBARR respirations Mental status Awake 03/05/25 14:07 SUPERINTENDENT SERVICE.HBARR nausea No 03/05/25 14:07 SUPERINTENDENT SERVICE.HBARR Vomiting No 03/05/25 14:07 SUPERINTENDENT SERVICE.HBARR Anesthesia Postop Eval I: Fluid Summary Crystalloid volume administer 100 03/05/25 14:07 SUPERINTENDENT SERVICE.HBARR (ml) Colloids volume administered ( ml) Blood Product volume administered (ml) Total IV fluid infused 100 03/05/25 14:07 SUPERINTENDENT SERVICE.HBARR Anesthesia Postop Eval I: Summary Notes Anesthesia Complication No 03/05/25 14:07 SUPERINTENDENT SERVICE.HBARR Anesthesia Complication Comment: Post-operative progress note Anesthesia: Postop Eval II Evaluation Mental status: Awake and Calm Pain Level: 2 nausea: No Vomiting: No
--- NOTE | 2025-03-05 15:18 | NURSING ---
Completed oxygen testing at rest for patient. Patient was 80-83% on RA at rest, 2L NC applied and patient O2 up to 92% on 2L. CM and MD notified.
[2025-03-05 17:14] LABS: Hematocrit 27.3 % (37-47); Hemoglobin 8.3 g/dL (12.0-15.0)
[2025-03-05] MEDS: Acetaminophen 325 MG Tablet 650 MG PO (18:35)
[2025-03-05] MEDS: Gabapentin 300 MG Capsule PO (21:23)
[2025-03-05] MEDS: Nortriptyline 25 MG Capsule 50 MG PO (21:24)
[2025-03-05] MEDS: Mirtazapine 15 MG Tablet PO (21:24)
[2025-03-05] MEDS: Atorvastatin Calcium 10 MG Tablet PO (21:24)
[2025-03-05] MEDS: tiZANidine HCl 2 MG Tablet 4 MG PO (21:24)
[2025-03-06] VITALS (10 sets, daily range): BP systolic 102–121; BP diastolic 60–68; PULSE 108–116; RESP 18–24; TEMP 36.7–37.4; O2SAT 18–98
[2025-03-06] MEDS: Acetaminophen 325 MG Tablet 650 MG PO (04:12)
[2025-03-06] MEDS: Ipratropium/Albuterol Sulfate 3 ML AMPUL.NEB INHALATION ×2 (07:02→13:09)
[2025-03-06] MEDS: Budesonide Respules 0.5 MG/2 ML AMPUL.NEB. INHALATION (07:02)
[2025-03-06 07:15] LABS: Absolute Neutrophil Count 6.2 X10^3/uL (2.0-7.7); Basophil# 0.03 X10^3/uL; Basophil% 0.4 % (0-1); Eosinophil# 0.24 X10^3/uL; Hemoglobin 7.5 g/dL (12.0-15.0); Lymphocyte % 7.4 % (19-41); Mean Corpuscular Hgb 26.8 pg (27.0-32.0); Mean Corpuscular Volume 89.3 fL (81-99); Monocyte% 11.1 % (0-10); NRBC Flagged by Analyzer 0.7 % (0-5); Neutrophil % 76.4 % (47-70); POSITIVE DIFFERENTIAL YES; Platelet Count 378 K/mm3 (150-450); RBC Distribution Width CV 17.6 % (11.6-14.6); RBC Distribution Width SD 57.5 fl (35.1-43.9); White Blood Count 8.1 K/mm3 (4.4-11.0)
[2025-03-06 08:05] LABS: Anion Gap 8 (5-15); BUN 15 mg/dL (4-19); BUN/Creat Ratio 22.6 RATIO (10-20); Calcium,Total 8.8 mg/dL (7.6-11.0); Carbon Dioxide 28.3 mmol/L (21.0-32.0); Chloride 100 mmol/L (98-108); Creatinine, Serum 0.67 mg/dL (0.70-1.20); EST Glomerular Filtration Rate 91 (>60); Estimated Creatinine Clearance 45.24 ml/min (50-250); Glucose 65 mg/dL (70-99); Potassium 4.3 mmol/L (3.3-5.1); Sodium Level 137 mmol/L (133-145)
--- NOTE | 2025-03-06 08:33 | PCM.PN.HOSP ---
Reason for Visit Reason for Visit: Diagnoses Acute posthemorrhagic anemia (03/04/25) Noninfective gastroenteritis and colitis, unspecified (03/04/25) Vascular disorder of intestine, unspecified (03/04/25) Gastrointestinal hemorrhage, unspecified (03/04/25) Subjective Subjective Abdominal pain post EGD. Objective Data Objective Data Vital Signs: Vital Signs Temp Pulse Resp BP Pulse Ox O2 Del Method O2 Flow Rate 37 C 112 H 19 H 121/68 H 94 Nasal Cannula 3 03/06/25 06:15 03/06/25 07:05 03/06/25 07:58 03/06/25 06:15 03/06/25 07:58 03/06/25 07:58 03/06/25 07:58 Oxygen Flow Rate (L/min) 3 Oxygen Delivery Method Nasal Cannula Weight: 47.9 kg Body Mass Index (BMI) 19.3 Intake & Output: Intake and Output for Last 24 Hours 03/04/25 03/05/25 03/06/25 23:59 23:59 23:59 Intake Total 790.0 / 790.0 1450 / 1450 Balance 790.0 / 790.0 1450 / 1450 Medical Nutrition Assessment Dietitian: Malnutrition Criteria Met Start: 03/05/25 10:03 Freq: Status: Active Protocol: Document 03/05/25 12:24 SB (Rec: 03/05/25 12:24 SB [id number]) Nutrition Malnutrition Evidence of Yes Malnutrition Exists Malnutrition (severe Chronic ): Evidenced By Suboptimal Energy Intake (Severe),Weight Loss (Severe) Intake Problem Inadequate Oral Intake Etiology related to EGD Signs/Symptoms as evidenced by NPO status Status Active Problem Clinical Problem Chronic Disease or Condition Related Malnutrition Etiology severe related to inadequate oral intake and increase energy expenditure due to COPD Signs/Symptoms as evidenced by 11% unintentional weight loss x 5 months and PO meeting <75% of estimated nutrition needs x 1-2 years. Status Active Problem Recommendation Dietitian Recommend advanced diet as tolerated to regular. Recommendations/ Recommend 240ml chocolate ensure plus high protein TID Changes with meals, as diet is advanced. Will monitor weight trends. Lab / Micro Data 03/06/25 12:04 03/06/25 06:42 Labs: Laboratory Results - last 24 hr 03/05/25 12:22: Hgb 8.9 L, Hct 28.6 L 03/05/25 16:20: Hgb 8.3 L, Hct 27.3 L 03/06/25 06:42: WBC 8.1, RBC 2.80 L, Hgb 7.5 L, Hct 25.0 L, MCV 89.3, MCH 26.8 L, MCHC 30.0 L, RDW Std Deviation 57.5 H, RDW Coeff of Eloisa 17.6 H, Plt Count 378, MPV 10.0, Immature Gran % (Auto) 1.700 H, Neut % (Auto) 76.4 H, Lymph % (Auto) 7.4 L, [place] % (Auto) 11.1 H, Eos % (Auto) 3.0, Baso % (Auto) 0.4, Absolute Neuts (auto) 6.2, Absolute Lymphs (auto) 0.60 L, Nucleated RBC % 0.7, Sodium 137, Potassium 4.3, Chloride 100, Carbon Dioxide 28.3, Anion Gap 8, BUN 15, Creatinine 0.67 L, Estim Creat Clear Calc 45.24 L, Est GFR (MDRD) Non-Af 91, BUN/Creatinine Ratio 22.6 H, Glucose 65 L, Calcium 8.8 Micro: Microbiology 03/04/25 14:25 Stool Stool Occult Blood (BRITNI) - Final Occult Blood Positive Physical Exam Const alert and no apparent distress Resp normal respiratory effort, no retractions, no use of accessory muscles and clear to auscultation bilaterally Cardio regular rate, regular rhythm, S1 normal heart sound and S2 normal heart sound GI normal to inspection, nondistended, normoactive bowel sounds, soft to palpation, non-tender and non-distended Neuro Sensorium / Orientation: awake and alert Assessment & Plan Assessment/Plan (1) ABLA (acute blood loss anemia): PLAN: Secondary to GIB Hg 5.7 on admission, now up to 9.1. Transfused 2 units PRBCs improved Hg stable. DC with pantoprazole BID and ferrous sulfate EOD. (2) GIB (gastrointestinal bleeding): QUALIFIERS: GI bleed type/associated pathology: unspecified gastrointestinal hemorrhage type Qualified Code(s): K92.2 - Gastrointestinal hemorrhage, unspecified PLAN: 2/2 angiodysplastic lesions in the small bowel. EGD on 03/05: normal esophagus, single non-bleeding angiodysplastic lesion in the duodenum and 2 bleeding angiodysplastic lesions in the duodenum treated with heater probe. PLAN: Plan Chronic conditions: COPD lung cancer: s/p XRT. Follow up with Dr. Bryant of oncology Depression/anxiety: VTE prophylaxis: SCDs.
--- NOTE | 2025-03-06 09:40 | CASEMGMT ---
Addendum entered by Bridget Delgado 03/06/25 13:58: Discharge order is in. Discharge instructions and summary sent to [facility] via [facility] and they were notified pt is discharging today Addendum entered by Bridget Delgdao 03/06/25 13:54: Per [facility], [facility] able to accept pt and states SOC will be w/in 48 hrs of confirming PCP f/u. RN CM to room. Pt and updated and made aware of importance of getting PCP appt as soon as possible for HHC services to begin. They voice undertanding. Green sheet updated to include HHC notification @ dc. Addendum entered by Bridget Delgado 03/06/25 11:32: in room @ bedside. JARED CM to room. Introduced self and role. confirms that [employer] delivered O2 concentrator and portable O2 tanks to their home last evening. He states can bring in portable O2 tank @ discharge for pt to dc home on. Discussed home-going needs/planning and HHC. Info provided and questions answered. feels HHC would be beneficial for pt and both he and pt would like this set up. A list of HHC providers including quality and resource use data and consistent with the patient?s preferred geographic region, medical needs, and insurance network were provided from the [facility]. Their top 3 preferences are: 1) [facility] 2) [facility] 3) [facility]. Referrals sent to all 3 via [facility]. Pt and made aware HHC referral can be sent over the weekend, but not able to be verified until next week. They were made aware referrals have been sent and someone would f/u with them on Saturday, either @ [facility] if pt is still in the hospital, or @ home. They voice understanding. They were provided w/ CM director, Shirlene, contact #, if needed. Pt and deny having further discharge needs or concerns. Original Note: JARED BURRELL NOTE: Per Salena COLEMAN, pt has been having a lot of leg pain and is not walking much. RN CM to room. Pt resting in bed. Introduced self and role. Pt states she has been having leg spasms on/off, which is painful, but she states she has been getting up to the bathroom w/assistance. Pt reports that she usually uses walker or furniture/wall walks if not using the walker when @ home. Discussed any home-going needs. She states she may be interested in HHC, but she wants to talk w/her about it first. She states he will be coming in soon and would like JARED BURRELL to return when he is here. Discussed MCR's home-bound criteria. Pt states she is mostly home-bound, stating she does not usually leave her home and when she does, she needs assistance. Noted there is no portable O2 tank in pt's room from [facility]. Pt states O2 was delivered to her home, but she is not sure about the portability. When comes in today, JARED BURRELL will verify with that home o2 was delivered, including portable O2 tanks, and will ask to bring portable tank to [facility] for pt to dc home on. Pt to have home o2 testing completed prior to discharge. Current home O2 orders are for 2 l/m continuously. If pt qualifies for more than 2 l/m @ rest or w/exertion, will need updated O2 script sent to [facility]. Michael FIELDS RN, CM
[2025-03-06] MEDS: Pantoprazole Sodium 40 MG in 0.9% Normal Saline (100mL MB+) 100 ML 330 MG IV (09:56)
[2025-03-06] MEDS: Latanoprost 0.005% 1 Bottle 2 DRP OPHTHALMIC (09:56)
[2025-03-06 12:24] LABS: Hematocrit 24.6 % (37-47); Hemoglobin 7.5 g/dL (12.0-15.0)
--- NOTE | 2025-03-06 13:28 | DS.PCM_ITS ---
Providers Date of Admission: 03/04/25 Primary Care Physician: Dr. Hernandez Mcqueen MD Consultations 03/04/25 16:50 Consult: Gastroenterology Routine Consulting Provider: [facility] Reason for Consult: GI bleed EMERGENT Consult: No MD Notified: Yes Date Notified: 03/04/25 Time Notified: 16:13 Method of Notification: ED Physician Initiated 03/04/25 18:41 Consult: Onc/Wound/dope firer Routine Comment: Reason for Consult:: COLOSTOMY-MAY NEED SUPPLIES Reason For Visit: GI BLEED Diagnosis Discharge Diagnosis (1) ABLA (acute blood loss anemia): Status: Acute Code(s): D62 - Acute posthemorrhagic anemia Plan: Secondary to GIB Hg 5.7 on admission, now up to 9.1. Transfused 2 units PRBCs improved Hg stable. DC with pantoprazole BID and ferrous sulfate EOD. (2) GIB (gastrointestinal bleeding): Status: Acute Code(s): K92.2 - Gastrointestinal hemorrhage, unspecified Qualifiers: GI bleed type/associated pathology: unspecified gastrointestinal hemorrhage type Qualified Code(s): K92.2 - Gastrointestinal hemorrhage, unspecified Plan: 2/2 angiodysplastic lesions in the small bowel. EGD on 03/05: normal esophagus, single non-bleeding angiodysplastic lesion in the duodenum and 2 bleeding angiodysplastic lesions in the duodenum treated with heater probe. Plan Chronic conditions: * COPD * lung cancer: s/p XRT. Follow up with Dr. Bryant of oncology * Depression/anxiety: VTE prophylaxis: SCDs. Medications at Discharge Home Medications atorvastatin 10 mg tablet 10 mg PO QHS CHOLESTEROL #90 tabs 04/17/21 Hair prostethesis #1 ea 01/17/23 gabapentin 300 mg capsule 300 mg PO QHS NERVE PAIN 03/18/23 dicyclomine 10 mg capsule 10 mg PO BID IRRITABLE BOWELS 08/21/23 mirtazapine 15 mg tablet 15 mg PO QHS DEPRESSION 08/21/23 albuterol sulfate 2.5 mg/3 mL (0.083 %) solution for nebulization 2.5 mg (3 mL) inhalation Q4-6H PRN shortness of breath or wheezing #180 mL 02/24/24 albuterol sulfate 90 mcg/actuation aerosol inhaler 2 puff inhalation Q4H PRN SHORTNESS OF BREATH/WHEEZING #8.5 grams 02/24/24 latanoprost 0.005 % eye drops 2 drp ophthalmic (eye) DAILY 02/24/24 ondansetron HCl 8 mg tablet 8 mg PO TID PRN nausea and vomiting 02/24/24 tizanidine 4 mg tablet 4 mg PO QHS 02/24/24 acetaminophen 325 mg capsule 650 mg PO Q6H PRN pain 08/26/24 diphenhydramine HCl 25 mg capsule (Benadryl) 25 mg PO TID PRN itching #30 caps 09/30/24 lidocaine-prilocaine 2.5 %-2.5 % topical cream 1 applic topical ONCE PRN PORT ACCESS 30 days #30 grams 01/07/25 fluticasone furoate 100 mcg/actuation blister powder for inhalation (Arnuity Ellipta) 1 inh inhalation DAILY 03/04/25 montelukast 10 mg tablet 10 mg PO QHS ALLERGIES 03/04/25 nortriptyline 50 mg capsule 50 mg PO QHS 03/04/25 octreotide,microspheres 20 mg intramuscular susp, extended release (Sandostatin LAR Depot) 40 mg IM Q4W #2 ea 03/05/25 ferrous sulfate 325 mg (65 mg iron) tablet 325 mg PO QODAY #30 tabs 03/06/25 pantoprazole 40 mg tablet,delayed release 40 mg PO BIDCM ACID REFLUX #60 tabs 03/06/25 Hospital Course Operations None Procedures EGD Summary of Care Provided Minutes Spent on Discharge: 35 Hospital Course: Patient presents with anemia and was having hematochezia from her colostomy. Patient was transfused 2 units packed red blood cells while she was here. EGD on the th showed normal esophagus, angiodysplastic lesions in the stomach 2 that were bleeding and one that was nonbleeding. These were all cauterized. Patient's hemoglobin has remained stable afterwards. Patient to be discharged home to continue with pantoprazole but twice daily and to help with her anemia she would be on ferrous sulfate every other day. Medical Records Data Medical Nutrition Assessment Dietitian: Malnutrition Criteria Met Start: 03/05/25 10:03 Freq: Status: Active Protocol: Document 03/05/25 12:24 SB (Rec: 03/05/25 12:24 SB [id number]) Nutrition Malnutrition Evidence of Yes Malnutrition Exists Malnutrition (severe Chronic ): Evidenced By Suboptimal Energy Intake (Severe),Weight Loss (Severe) Intake Problem Inadequate Oral Intake Etiology related to EGD Signs/Symptoms as evidenced by NPO status Status Active Problem Clinical Problem Chronic Disease or Condition Related Malnutrition Etiology severe related to inadequate oral intake and increase energy expenditure due to COPD Signs/Symptoms as evidenced by 11% unintentional weight loss x 5 months and PO meeting <75% of estimated nutrition needs x 1-2 years. Status Active Problem Recommendation Dietitian Recommend advanced diet as tolerated to regular. Recommendations/ Recommend 240ml chocolate ensure plus high protein TID Changes with meals, as diet is advanced. Will monitor weight trends. Weight / BMI Weight Weight: 47.9 kg Body Mass Index (BMI) 19.3 ABG / Lab / Microbiology Data 03/06/25 12:04 03/06/25 06:42 Laboratory: Laboratory Results - last 24 hr 03/05/25 16:20: Hgb 8.3 L, Hct 27.3 L 03/06/25 06:42: WBC 8.1, RBC 2.80 L, Hgb 7.5 L, Hct 25.0 L, MCV 89.3, MCH 26.8 L , MCHC 30.0 L, RDW Std Deviation 57.5 H, RDW Coeff of Eloisa 17.6 H, Plt Count 378, MPV 10.0, Immature Gran % (Auto) 1.700 H, Neut % (Auto) 76.4 H, Lymph % (Auto) 7.4 L, [place] % (Auto) 11.1 H, Eos % (Auto) 3.0, Baso % (Auto) 0.4, Absolute Neuts (auto) 6.2, Absolute Lymphs (auto) 0.60 L, Nucleated RBC % 0.7, Sodium 137, Potassium 4.3, Chloride 100, Carbon Dioxide 28.3, Anion Gap 8, BUN 15, C reatinine 0.67 L, Estim Creat Clear Calc 45.24 L, Est GFR (MDRD) Non-Af 91, B UN/Creatinine Ratio 22.6 H, Glucose 65 L, Calcium 8.8 03/06/25 12:04: Hgb 7.5 L, Hct 24.6 L Microbiology: Microbiology 03/04/25 14:25 Stool Stool Occult Blood (BRITNI) - Final Occult Blood Positive D/C Instructions Discharge Diet: No restrictions DC O2, CPAP, BIPAP Needs Home O2 Discharge instructions: No Meaningful Use Info Meaningful Use Meaningful Use Diagnoses (Choose all that apply): None applicable Ischemic Stroke Statin Dosing Therapy Reference: STATIN DOSE THERAPY REFERENCE: * Patients > 75 years receive moderate or high dose statin therapy. * Patients 75 years or YOUNGER should receive HIGH intensity statin dose unless contraindicated. You will be required to document reason for non-treatment if statin daily dose does not meet guidelines. 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 Those were cauterized by Dr. Morris. He did require blood obviously when you came in here but your blood count has remained stable. Will be increasing your Protonix to twice daily from the daily dosing you are taking before and I will be adding iron (ferrous sulfate) to your medications. Discharge Orders/Prescriptions Prescriptions: New ferrous sulfate 325 mg (65 mg iron) tablet 325 mg PO QODAY Qty: 30 0RF Continued gabapentin 300 mg capsule 300 mg PO QHS latanoprost 0.005 % drops 2 drp ophthalmic (eye) DAILY tizanidine 4 mg tablet 4 mg PO QHS ondansetron HCl 8 mg tablet 8 mg PO TID PRN (Reason: nausea and vomiting) albuterol sulfate 90 mcg/actuation HFA aerosol inhaler 2 puff inhalation Q4H PRN (Reason: SHORTNESS OF BREATH/WHEEZING ) Qty: 8.5 11RF albuterol sulfate 2.5 mg /3 mL (0.083 %) solution for nebulization 2.5 mg inhalation Q4-6H PRN (Reason: shortness of breath or wheezing) Qty: 180 11RF diphenhydramine HCl [Benadryl] 25 mg capsule 25 mg PO TID PRN (Reason: itching) Qty: 30 0RF lidocaine-prilocaine 2.5-2.5 % cream 1 applic topical ONCE PRN (Reason: PORT ACCESS) 30 Days Qty: 30 2RF acetaminophen 325 mg capsule 650 mg PO Q6H PRN (Reason: pain) dicyclomine 10 mg capsule 10 mg PO BID mirtazapine 15 mg tablet 15 mg PO QHS Arnuity Ellipta 100 mcg/actuation blister with device 1 inh INHALATION DAILY montelukast 10 mg tablet 10 mg PO QHS nortriptyline 50 mg capsule 50 mg PO QHS atorvastatin 10 mg tablet 10 mg PO QHS Qty: 90 3RF octreotide,microspheres [Sandostatin LAR Depot] 20 mg suspension,extended rel recon 40 mg IM Q4W Qty: 2 5RF Changed pantoprazole 40 mg tablet,delayed release (DR/EC) 40 mg PO BIDCM Qty: 60 0RF No Action (DME) Hair prostethesis See Rx Instructions .Route .MEDSUPPLY Qty: 1 0RF Rx Instructions: As directed Referrals / Follow Up: [facility] [Provider Group] - 04/02/25 11:00 am *[facility] [Provider Group] - 04/01/25 10:15 am Hernandez Mcqueen MD [Primary Care Provider] - Within 2 Weeks Disposition Disposition (needs filled in before D/C Order can be placed): Home, Self Care Charges/Coding Visit Charges Inpatient E&M: 70920 Disch Hosp >30min
== END 2025-03-06 15:28 | disposition home health service (06) | DRG 377 ==
LOC: ED 12:47 → PCU 16:09
PROVIDERS: Internal Medicine Gastroenterology; Admitting Provider Internal Medicine; Emergency Provider Emergency Medicine; PCP Family Medicine
PROC: 0DJ08ZZ Inspection of Upper Intestinal Tract, Via Natural or Artificial Opening Endoscopic (ICD-10-PCS; CPT 43235; principal; 2025-03-05 13:25)
DX: K31.811 Angiodysplasia of stomach and duodenum with bleeding (principal); E43 Unspecified severe protein-calorie malnutrition; C34.92 Malignant neoplasm of unspecified part of left bronchus or lung; D62 Acute posthemorrhagic anemia; Z68.1 Body mass index [BMI] 19.9 or less, adult; J44.9 Chronic obstructive pulmonary disease, unspecified; I10 Essential (primary) hypertension; F32.A Depression, unspecified; I35.0 Nonrheumatic aortic (valve) stenosis; G25.81 Restless legs syndrome; Z93.3 Colostomy status; E78.00 Pure hypercholesterolemia, unspecified; K21.9 Gastro-esophageal reflux disease without esophagitis; K59.09 Other constipation; F41.9 Anxiety disorder, unspecified; R09.02 Hypoxemia; Z87.19 Personal history of other diseases of the digestive system; Z79.51 Long term (current) use of inhaled steroids; Z87.891 Personal history of nicotine dependence; Z90.49 Acquired absence of other specified parts of digestive tract
CPT/HCPCS: 36415; 36591; 71045; 80048; 80053; 82274; 85014; 85018; 85025; 85610; 85730; 86850; 86900; 86901; 93005; 94640; 94668; 99284; C1889; P9016; A4216; J2405

== ENCOUNTER → 2025-03-12 | Outpatient (CLI) | payer MEDICARE, MEDICAID, SELFPAY ==
[2025-03-12 12:31] LABS: Absolute Neutrophil Count 13.4 X10^3/uL (2.0-7.7); Basophil# 0.06 X10^3/uL; Basophil% 0.4 % (0-1); Eosinophil# 0.25 X10^3/uL; Eosinophils% 1.6 % (0-5); Hematocrit 29.1 % (37-47); Hemoglobin 8.4 g/dL (12.0-15.0); Lymphocyte % 5.1 % (19-41); Mean Corp Hgb Conc 28.9 g/dL (32-36); Mean Corpuscular Hgb 25.5 pg (27.0-32.0); Mean Corpuscular Volume 88.4 fL (81-99); Mean Platelet Vol. 10.4 fl (6.2-12.0); Monocyte# 1.02 X10^3/uL; Monocyte% 6.5 % (0-10); NRBC Flagged by Analyzer 0.1 % (0-5); Neutrophil # 13.37 X10^3/uL (2.7-7.7); Neutrophil % 85.5 % (47-70); Platelet Count 449 K/mm3 (150-450); RBC Distribution Width CV 18.6 % (11.6-14.6); RBC Distribution Width SD 59.3 fl (35.1-43.9); Red Blood Count 3.29 M/mm3 (4.2-5.4); White Blood Count 15.6 K/mm3 (4.4-11.0)
[2025-03-12 12:49] LABS: Anion Gap 11 (5-15); BUN 19 mg/dL (4-19); Calcium,Total 9.6 mg/dL (7.6-11.0); Carbon Dioxide 26.4 mmol/L (21.0-32.0); Chloride 98 mmol/L (98-108); Creatinine, Serum 0.57 mg/dL (0.70-1.20); EST Glomerular Filtration Rate 94 (>60); Glucose 139 mg/dL (70-99); Potassium 4.6 mmol/L (3.3-5.1); Sodium Level 136 mmol/L (133-145)
== END | disposition home or self-care (01) ==
LOC: MFPLAB 10:34
PROVIDERS: PCP Family Medicine; Referring Provider Family Medicine; Visit Provider Family Medicine
DX: D64.9 Anemia, unspecified (principal); C34.90 Malignant neoplasm of unspecified part of unspecified bronchus or lung
CPT/HCPCS: 36415; 80048; 85025

== ENCOUNTER 2025-03-13 16:25 | Emergency (ER) | payer MEDICARE, MEDICAID, SELFPAY ==
[2025-03-13] VITALS (7 sets, daily range): BP systolic 103–150; BP diastolic 62–83; PULSE 99–119; RESP 16–21; TEMP 36.6–37; O2SAT 95–98; BMI 21.4
--- NOTE | 2025-03-13 16:50 | EKG12_ITS ---
Test Reason : SOB Blood Pressure : */* mmHG Vent. Rate : 119 BPM Atrial Rate : 119 BPM P-R Int : 132 ms QRS Dur : 78 ms QT Int : 324 ms P-R-T Axes : 55 8 78 degrees QTcB Int : 455 ms Sinus tachycardia Nonspecific ST abnormality Abnormal ECG Confirmed by AILYN EATON, WAI ([id number]), editor at large FRANCESCA WINTERS ([id number]) on 03/15/2025 9:20:00 AM Referred By: Orville Avalos Confirmed By: WAI ROBERTSON MD
[2025-03-13 16:58] LABS: Absolute Lymphocyte Count 1.05 X10^3/uL (0.83-4.51); Absolute Neutrophil Count 13.2 X10^3/uL (2.0-7.7); Basophil# 0.09 X10^3/uL; Basophil% 0.5 % (0-1); Eosinophil# 0.27 X10^3/uL; Eosinophils% 1.6 % (0-5); Hematocrit 28.9 % (37-47); Hemoglobin 8.5 g/dL (12.0-15.0); Lymphocyte # 1.05 X10^3/ul (0.83-4.51); Lymphocyte % 6.4 % (19-41); Mean Corp Hgb Conc 29.4 g/dL (32-36); Mean Corpuscular Hgb 25.6 pg (27.0-32.0); Mean Platelet Vol. 9.9 fl (6.2-12.0); Monocyte# 1.46 X10^3/uL; Monocyte% 8.9 % (0-10); NRBC Flagged by Analyzer 0.3 % (0-5); Neutrophil # 13.15 X10^3/uL (2.7-7.7); Neutrophil % 80.3 % (47-70); Platelet Count 468 K/mm3 (150-450); RBC Distribution Width CV 18.6 % (11.6-14.6); Red Blood Count 3.32 M/mm3 (4.2-5.4); White Blood Count 16.4 K/mm3 (4.4-11.0)
--- NOTE | 2025-03-13 17:05 | RAD_ITS ---
PROCEDURE: CHEST PA AND LATERAL 03/13/2025 REASON FOR EXAM: SOB TECHNIQUE: Frontal and lateral views of the chest. COMPARISON: CT chest, abdomen and pelvis 02/04/2025 FINDINGS: Hardware: Right chest wall port catheter. Heart: The heart size is normal. Mediastinum: The mediastinal contour is unremarkable. Lungs: Confluent right upper lobe cavitary mass, similar to the CT from 02/04/2025. Bibasilar atelectasis. No pneumothorax. No pleural effusion. Emphysema. Bones: Degenerative changes are identified within the thoracic spine. RAD/Chest PA and Lateral IMPRESSION: See above Reading Location: [facility]
--- NOTE | 2025-03-13 17:12 | EX.ED.DYSGE1 ---
HPI <KENJI Fiore - Last Filed: 03/13/25 21:18> History of Present Illness Chief Complaint: Other, Pain/Inj Narrative Narrative: Patient presenting today with concerns for blood from her stoma site. She reports that the area became prolapsed and she started to notice a small amount of bright red blood from the area about 30 minutes prior to arrival. She also reports that she began to feel slightly short of breath at this time as well which is not unusual for her given her lung cancer history. She is on chronic supplemental O2, she has a history of lung cancer following with Dr. Bryant, she is currently doing immunotherapy. She was recently admitted to the hospital due to an upper GI bleed, she was discharged 1 week ago. She was found to have 2 bleeding lesions in the duodenum that were treated with a heater probe by Dr. Morris. She was anemic during her previous admission and did require blood transfusion. She is denying any black or tarry stools from her colostomy bag currently. She has had no fevers, chills, abdominal pain, nausea, or vomiting. [facility] <KENJI Fiore - Last Filed: 03/13/25 21:18> [facility] Medical History (Updated 03/13/25 @ 20:55 by KENJI Fiore) Presence of colostomy (~06/2023) Non-small cell carcinoma of left lung, stage 3 Anemia Radiation esophagitis NSCLC of upper lobe Cancer related pain Exertional dyspnea Encounter for antineoplastic immunotherapy Headache At risk for deep venous thrombosis Leg edema Hematuria Anemia due to chronic blood loss Rash Wears glasses Wears dentures Cancer Arthritis High cholesterol Easy bruising Restless legs Back pain Gastric reflux Former smoker Shortness of breath on exertion History of edema History of echocardiogram History of stress test Hypertension Cardiology follow-up encounter History of irregular heartbeat Encounter for education COPD (chronic obstructive pulmonary disease) Fatigue Contact with and (suspected) exposure to other viral communicable diseases Generalized weakness Alopecia Hypokalemia Pneumonia COVID-19 Mild aortic stenosis Nicotine dependence Chronic constipation Essential hypertension Hyperlipidemia Benign neoplasm of colon Asthma Home Medications ?Medication ?Instructions ?Recorded ?Last Taken ?Type atorvastatin 10 mg tablet 10 mg PO QHS CHOLESTEROL #90 tabs 04/17/21 03/03/25 Rx Hair prostethesis #1 ea 01/17/23 Unknown Rx gabapentin 300 mg capsule 300 mg PO QHS NERVE PAIN 03/18/23 03/03/25 History dicyclomine 10 mg capsule 10 mg PO BID IRRITABLE BOWELS 08/21/23 03/04/25 History mirtazapine 15 mg tablet 15 mg PO QHS DEPRESSION 08/21/23 03/03/25 History albuterol sulfate 2.5 mg/3 mL 2.5 mg (3 mL) inhalation Q4-6H PRN 02/24/24 Unknown Rx (0.083 %) solution for nebulization shortness of breath or wheezing #180 mL albuterol sulfate 90 mcg/actuation 2 puff inhalation Q4H PRN 02/24/24 Unknown Rx aerosol inhaler SHORTNESS OF BREATH/WHEEZING #8.5 grams latanoprost 0.005 % eye drops 2 drp ophthalmic (eye) DAILY 02/24/24 03/04/25 History ondansetron HCl 8 mg tablet 8 mg PO TID PRN nausea and vomiting 02/24/24 Unknown History tizanidine 4 mg tablet 4 mg PO QHS 02/24/24 03/03/25 History acetaminophen 325 mg capsule 650 mg PO Q6H PRN pain 08/26/24 Unknown History diphenhydramine HCl 25 mg capsule 25 mg PO TID PRN itching #30 caps 09/30/24 Unknown Rx (Benadryl) lidocaine-prilocaine 2.5 %-2.5 % 1 applic topical ONCE PRN PORT 01/07/25 Unknown Rx topical cream ACCESS 30 days #30 grams fluticasone furoate 100 1 inh inhalation DAILY 03/04/25 03/04/25 History mcg/actuation blister powder for inhalation (Arnuity Ellipta) montelukast 10 mg tablet 10 mg PO QHS ALLERGIES 03/04/25 03/03/25 History nortriptyline 50 mg capsule 50 mg PO QHS 03/04/25 03/03/25 History ferrous sulfate 325 mg (65 mg 325 mg PO QODAY #30 tabs 03/06/25 Unknown Rx iron) tablet pantoprazole 40 mg tablet,delayed 40 mg PO BIDCM ACID REFLUX #60 tabs 03/06/25 Unknown Rx release octreotide,microspheres 20 mg 40 mg IM Q4W #2 ea 03/09/25 03/11/25 Rx intramuscular susp, extended release (Sandostatin LAR Depot) prochlorperazine maleate 10 mg 10 mg PO Q6H PRN nausea and 03/13/25 Unknown History tablet vomiting Allergy/AdvReac Type Severity Reaction Status Date / Time watermelon Allergy Intermediate Hives Verified 03/13/25 16:32 Family History Father Cancer spinal Mother Alzheimer's disease Brother Pacemaker Surgical History Hx of colonoscopy History of creation of ostomy Status post Eleno procedure History of cystoscopy History of amputation of finger of right hand History of toe surgery History of cataract extraction History of breast surgery History of D&C History of tonsillectomy History of appendectomy History of hysterectomy Social History household members: spouse pets and animals: Yes (dogs) Smoking Status: Former smoker how long ago did patient quit smokin alcohol intake: former substance use type: does not use ROS <KENJI Fiore - Last Filed: 03/13/25 21:18> ROS ED Constitutional Constitutional ED: Denies chills or fever(s) Cardiovascular Cardiovascular: Denies chest pain Respiratory/Chest Respiratory/Chest: Reports cough and dyspnea Gastrointestinal Gastrointestinal: Reports other Details: Right red blood from the stoma ; Denies abdominal pain, nausea or vomiting Genitourinary Genitourinary ED: Denies dysuria, hematuria or urinary urgency Musculoskeletal Musculoskeletal: Denies arthralgias or myalgias Neurologic Neurologic: Denies weakness EXAM <KENJI Fiore - Last Filed: 03/13/25 21:18> Physical Exam Const Vital Signs: 03/13/25 16:26 03/13/25 16:43 03/13/25 16:54 Temperature 97.9 F Temperature Source Temporal Pulse Rate 119 H Respiratory Rate 21 H Respiratory Effort Normal Non-Labored Respiratory Pattern Normal Blood Pressure 103/62 Blood Pressure Mean 75 Pulse Ox 95 96 Oxygen Delivery Method Nasal Cannula Nasal Cannula Oxygen Flow Rate (L/min) 3 2 03/13/25 17:32 03/13/25 18:00 03/13/25 19:00 Temperature 98.6 F 98.6 F 98.5 F Temperature Source Oral Oral Oral Pulse Rate 99 113 H 110 H Respiratory Rate 18 20 H 16 Respiratory Effort Respiratory Pattern Blood Pressure 128/78 H 126/75 H 125/72 H Blood Pressure Mean 94 92 89 Pulse Ox 98 97 98 Oxygen Delivery Method Room Air Nasal Cannula Oxygen Flow Rate (L/min) 2 03/13/25 20:00 03/13/25 20:50 Temperature 98.3 F 98.2 F Temperature Source Oral Pulse Rate 110 H 108 H Respiratory Rate 18 18 Respiratory Effort Respiratory Pattern Blood Pressure 150/83 H 145/75 H Blood Pressure Mean 105 98 Pulse Ox 98 98 Oxygen Delivery Method Nasal Cannula Oxygen Flow Rate (L/min) 2 Positive well nourished, well developed and no apparent distress General Appearance ED: well developed HEENT Reports normocephalic and head/scalp atraumatic Mouth ED: Yes moist mucous membranes normal Eyes PERRL and EOMs intact bilaterally Neck full ROM and supple Chest Wall inspection of chest normal Resp normal respiratory effort and clear to auscultation bilaterally Cardio regular rate and regular rhythm GI soft to palpation, non-tender, non-distended and no masses GI Narrative: Stoma is prolapsed, there is slight irritation to an area of the stoma with minimal active bleeding Back/Spine normal ROM and normal to inspection Extremity normal to inspection and full ROM Neuro oriented x3, CN's II-XII intact bilaterally, moves all extremities, no focal motor deficits and no sensory deficits noted Sensorium / Orientation: awake and alert Psych mental status grossly normal and thought process normal Skin no rashes or lesions noted and no wounds <Dr. Orville Avalos, DO - Last Filed: 03/13/25 22:27> Physical Exam Const Vital Signs: 03/13/25 16:26 03/13/25 16:43 03/13/25 16:54 Temperature 97.9 F Temperature Source Temporal Pulse Rate 119 H Respiratory Rate 21 H Respiratory Effort Normal Non-Labored Respiratory Pattern Normal Blood Pressure 103/62 Blood Pressure Mean 75 Pulse Ox 95 96 Oxygen Delivery Method Nasal Cannula Nasal Cannula Oxygen Flow Rate (L/min) 3 2 03/13/25 17:32 03/13/25 18:00 03/13/25 19:00 Temperature 98.6 F 98.6 F 98.5 F Temperature Source Oral Oral Oral Pulse Rate 99 113 H 110 H Respiratory Rate 18 20 H 16 Respiratory Effort Respiratory Pattern Blood Pressure 128/78 H 126/75 H 125/72 H Blood Pressure Mean 94 92 89 Pulse Ox 98 97 98 Oxygen Delivery Method Room Air Nasal Cannula Oxygen Flow Rate (L/min) 2 03/13/25 20:00 03/13/25 20:50 Temperature 98.3 F 98.2 F Temperature Source Oral Pulse Rate 110 H 108 H Respiratory Rate 18 18 Respiratory Effort Respiratory Pattern Blood Pressure 150/83 H 145/75 H Blood Pressure Mean 105 98 Pulse Ox 98 98 Oxygen Delivery Method Nasal Cannula Oxygen Flow Rate (L/min) 2 [facility] <KENJI Fiore - Last Filed: 03/13/25 21:18> [facility] Narrative Medical decision making narrative: Patient presenting today due to a prolapse from her stoma site that occurred this evening. She has been coughing a lot which is likely worsening the prolapse. She reports that she felt slightly short of breath this evening around the same time that her stoma prolapsed and began to have a minimal amount of bleeding. She reports that it is not unusual for her to feel short of breath. She now reports feeling better and denies actively feeling short of breath. Chest x-ray obtained and shows no acute findings, no infiltrate. After speaking with Dr. Dale, she recommended placing sugar on the site. Sugar was placed on the prolapsed stoma and after about 30 minutes the attending attempted to reduce the area. We were unsuccessful and sugar was again placed on the site for another 30 minutes. Second attempt was made and again was unsuccessful. Dr. Dale recommended placing sugar inside of the lumen, this was performed and she came to evaluate the patient and was able to reduce the prolapse. Patient was observed and on reexamination the stoma is in its normal position. She will be sent home with the sugar with instructions to place more inside the lumen this evening. She is to follow-up with Dr. Dale as needed. She will be discharged home in stable condition. Return instructions discussed. Additionally, she was tachycardic here but this is consistent with previous vitals. Lab Data Attestation: I reviewed the patient's lab results. Lab results narrative: elevated WBC at 16.4, her hemoglobin is stable at 8.5, BMP is unremarkable. Labs: Laboratory Results - last 24 hr 03/13/25 16:53 WBC 16.4 H RBC 3.32 L Hgb 8.5 L Hct 28.9 L MCV 87.0 MCH 25.6 L MCHC 29.4 L RDW Std Deviation 59.0 H RDW Coeff of Eloisa 18.6 H Plt Count 468 H MPV 9.9 Immature Gran % (Auto) 2.300 H Neut % (Auto) 80.3 H Lymph % (Auto) 6.4 L [place] % (Auto) 8.9 Eos % (Auto) 1.6 Baso % (Auto) 0.5 Absolute Neuts (auto) 13.2 H Absolute Lymphs (auto) 1.05 Nucleated RBC % 0.3 Sodium 137 Potassium 4.3 Chloride 98 Carbon Dioxide 27.4 Anion Gap 11 BUN 20 H Creatinine 0.73 Est GFR (MDRD) Non-Af 85 BUN/Creatinine Ratio 26.7 H Glucose 123 H Calcium 9.2 Radiography X-Ray: Read by ED Physician Diagnostic Testing: Clinical Impression(s) from Imaging Studies Chest X-Ray 03/13/25 17:05 IMPRESSION: See above Reading Location: [facility] EKG Initial EKG: Comments: 119 bpm, sinus tachycardia, no ST elevation, this is consistent with previous EKG from 03/04/2025 <Dr. Orville Avalos, DO - Last Filed: 03/13/25 22:27> [facility] Lab Data Labs: Laboratory Results - last 24 hr 03/13/25 16:53 WBC 16.4 H RBC 3.32 L Hgb 8.5 L Hct 28.9 L MCV 87.0 MCH 25.6 L MCHC 29.4 L RDW Std Deviation 59.0 H RDW Coeff of Eloisa 18.6 H Plt Count 468 H MPV 9.9 Immature Gran % (Auto) 2.300 H Neut % (Auto) 80.3 H Lymph % (Auto) 6.4 L [place] % (Auto) 8.9 Eos % (Auto) 1.6 Baso % (Auto) 0.5 Absolute Neuts (auto) 13.2 H Absolute Lymphs (auto) 1.05 Nucleated RBC % 0.3 Sodium 137 Potassium 4.3 Chloride 98 Carbon Dioxide 27.4 Anion Gap 11 BUN 20 H Creatinine 0.73 Est GFR (MDRD) Non-Af 85 BUN/Creatinine Ratio 26.7 H Glucose 123 H Calcium 9.2 Radiography Diagnostic Testing: Clinical Impression(s) from Imaging Studies Chest X-Ray 03/13/25 17:05 IMPRESSION: See above Reading Location: [facility] Treatment and Re-Evaluation :: Attending note: I have personally performed a face to face assessment of the patient and have reviewed the PADILLA note. I personally made/approved the management plan and take responsibility for the patient management. I performed a substantive portion of the visit including all aspects of the following. My [place] findings include: Presents bleeding from stoma history of colitis leading to surgery in the last couple years performed by Dr. Dale. She reports more protrusion of her stoma bleeding around this. Not any blood thinners. Admission a week ago upper GI bleed with black stools at that time. She was given 2 units of blood. Mild abdominal discomfort around stoma. No fevers. She has had recent cough. She is on chronic oxygenation history of lung cancer. Exam stable chronic oxygenation heart tachycardic 98% on 2 L oxygenation. Abdomen prolapse of the stoma there is edema there was a small tear on the stoma with no active bleeding. Labs hemoglobin stable 8.5 from her most recent. She is chronic tachycardia from her records 110 range. She stable and oxygenation. Two-view chest x-ray interpreted myself and read by radiology shows no acute process. Backline to her surgeon Dr. Dale due to the bleeding from the stoma, okayed for sugar and attempt reduction. Performed twice, there is only transient reduction as patient with cough and it would come back out. 1999: We discussed with surgeon when she came to the department she was able to reduce the prolapse. She will return and reevaluate the patient. 2049: Stoma remained reduced. Patient is sent home with sugar to use as recommended by her surgeon. Outpatient follow-up as needed. Discharge Plan Triage Chief Complaint: Other, Pain/Inj ED Midlevel Provider: Catherine Bernard ED Provider: Orville Avalos/Rx/DC Orders Clinical Impression: History of lung cancer, Prolapse of stoma Instructions: ED Rectal Prolapse Prescriptions: No Action gabapentin 300 mg capsule 300 mg PO QHS latanoprost 0.005 % drops 2 drp ophthalmic (eye) DAILY tizanidine 4 mg tablet 4 mg PO QHS ondansetron HCl 8 mg tablet 8 mg PO TID PRN (Reason: nausea and vomiting) albuterol sulfate 90 mcg/actuation HFA aerosol inhaler 2 puff inhalation Q4H PRN (Reason: SHORTNESS OF BREATH/WHEEZING ) Qty: 8.5 11RF albuterol sulfate 2.5 mg /3 mL (0.083 %) solution for nebulization 2.5 mg inhalation Q4-6H PRN (Reason: shortness of breath or wheezing) Qty: 180 11RF diphenhydramine HCl [Benadryl] 25 mg capsule 25 mg PO TID PRN (Reason: itching) Qty: 30 0RF lidocaine-prilocaine 2.5-2.5 % cream 1 applic topical ONCE PRN (Reason: PORT ACCESS) 30 Days Qty: 30 2RF acetaminophen 325 mg capsule 650 mg PO Q6H PRN (Reason: pain) dicyclomine 10 mg capsule 10 mg PO BID mirtazapine 15 mg tablet 15 mg PO QHS prochlorperazine maleate 10 mg tablet 10 mg PO Q6H PRN (Reason: nausea and vomiting) Arnuity Ellipta 100 mcg/actuation blister with device 1 inh INHALATION DAILY montelukast 10 mg tablet 10 mg PO QHS nortriptyline 50 mg capsule 50 mg PO QHS ferrous sulfate 325 mg (65 mg iron) tablet 325 mg PO QODAY Qty: 30 0RF pantoprazole 40 mg tablet,delayed release (DR/EC) 40 mg PO BIDCM Qty: 60 0RF atorvastatin 10 mg tablet 10 mg PO QHS Qty: 90 3RF (DME) Hair prostethesis See Rx Instructions .Route .MEDSUPPLY Qty: 1 0RF Rx Instructions: As directed octreotide,microspheres [Sandostatin LAR Depot] 20 mg suspension,extended rel recon 40 mg IM Q4W Qty: 2 5RF Primary Care Provider: Hernandez Mcqueen Referrals: Hernandez Mcqueen MD [Primary Care Provider] - Margarita Dale MD [Med Staff - Active Staff] - As Needed Activity Restrictions/Additional Instructions: Follow-up with Dr. Dale as needed, return for any other concerns or worsening symptoms. You can continue to put sugar in the stoma this evening. Print Language: Lithuanian Disposition Disposition: Home, Self Care Discharge Date/Time: 03/13/25 20:59
[2025-03-13 17:23] LABS: Anion Gap 11 (5-15); BUN 20 mg/dL (4-19); BUN/Creat Ratio 26.7 RATIO (10-20); Calcium,Total 9.2 mg/dL (7.6-11.0); Carbon Dioxide 27.4 mmol/L (21.0-32.0); Chloride 98 mmol/L (98-108); Creatinine, Serum 0.73 mg/dL (0.70-1.20); EST Glomerular Filtration Rate 85 (>60); Glucose 123 mg/dL (70-99); Potassium 4.3 mmol/L (3.3-5.1); Sodium Level 137 mmol/L (133-145)
--- NOTE | 2025-03-13 20:51 | CON.PCM.SX_ITS ---
Assessment & Plan Assessment/Plan (1) Prolapse of stoma: PLAN: Plan Transverse colon colostomy was able to be reduced with sugar and gentle pressure?spent about 45 minutes reducing rechecking I was going to stand.. Okay to DC home. Follow-up as needed. Patient and her are agreeable with plan. Margarita Dale M.D. Pager: [phone] [facility] [address] [place] [address], Outpatient Pavilion, [address] [place] [address] Office: [phone] HPI Consult Data Date of Consult: 03/14/25 HPI Narrative Reason for Consultation: Prolapsed transverse colostomy HPI Narrative: JUAN HAWKINS, is a 75 F who presents to the ER due to prolapse transverse colostomy. Patient states that came out about 2:00 today I would not go back in and has been having some bleeding since it has been out. Patient is well-known to me. Patient has been having issues with angiodysplastic lesions in the stomach and small bowel which have required treatment for bleeding in the recent past most recently beginning of February had a couple treated by Dr. Morris during EGD. ER physician did tried to put some sugar on it however when she coughed it came right back out. [facility] Medical History (Updated 03/13/25 @ 20:55 by KENJI Fiore) Presence of colostomy (~06/2023) Non-small cell carcinoma of left lung, stage 3 Anemia Radiation esophagitis NSCLC of upper lobe Cancer related pain Exertional dyspnea Encounter for antineoplastic immunotherapy Headache At risk for deep venous thrombosis Leg edema Hematuria Anemia due to chronic blood loss Rash Wears glasses Wears dentures Cancer Arthritis High cholesterol Easy bruising Restless legs Back pain Gastric reflux Former smoker Shortness of breath on exertion History of edema History of echocardiogram History of stress test Hypertension Cardiology follow-up encounter History of irregular heartbeat Encounter for education COPD (chronic obstructive pulmonary disease) Fatigue Contact with and (suspected) exposure to other viral communicable diseases Generalized weakness Alopecia Hypokalemia Pneumonia COVID-19 Mild aortic stenosis Nicotine dependence Chronic constipation Essential hypertension Hyperlipidemia Benign neoplasm of colon Asthma Home Medications ?Medication ?Instructions ?Recorded ?Last Taken ?Type atorvastatin 10 mg tablet 10 mg PO QHS CHOLESTEROL #9 0 tabs 04/17/21 03/03/25 Rx Hair prostethesis #1 ea 01/17/23 Unknown Rx gabapentin 300 mg capsule 300 mg PO QHS NERVE PAIN 03/03/25 History dicyclomine 10 mg capsule 10 mg PO BID IRRITABLE BOWEL S 08/21/23 03/04/25 History mirtazapine 15 mg tablet 15 mg PO QHS DEPRESSION 07/2903/03/25 History albuterol sulfate 2.5 mg/3 mL 2.5 mg (3 mL) inhalation Q4-6H PRN 02/24/24 Unknown Rx (0.083 %) solution for nebulization shortness of breat h or wheezing #180 mL albuterol sulfate 90 mcg/actuation 2 puff inhalation Q 4H PRN 02/24/24 Unknown Rx aerosol inhaler SHORTNESS OF BREATH/WHEEZING #8.5 grams latanoprost 0.005 % eye drops 2 drp ophthalmic (eye) D AILY 02/24/24 03/04/25 History ondansetron HCl 8 mg tablet 8 mg PO TID PRN nausea and vomiting 02/24/24 Unknown History tizanidine 4 mg tablet 4 mg PO QHS 02/24/24 5 History acetaminophen 325 mg capsule 650 mg PO Q6H PRN pain Unknown History diphenhydramine HCl 25 mg capsule 25 mg PO TID PRN itc naseem #30 caps 09/30/24 Unknown Rx (Benadryl) lidocaine-prilocaine 2.5 %-2.5 % 1 applic topical ONCE PRN PORT 01/07/25 Unknown Rx topical cream ACCESS 30 days #30 grams fluticasone furoate 100 1 inh inhalation DAILY 03/0403/04/25 History mcg/actuation blister powder for inhalation (Arnuity Ellipta) montelukast 10 mg tablet 10 mg PO QHS ALLERGIES 03/0403/03/25 History nortriptyline 50 mg capsule 50 mg PO QHS 03/04/25 05/05/21 History ferrous sulfate 325 mg (65 mg 325 mg PO QODAY #30 tabs 03/06/25 Unknown Rx iron) tablet pantoprazole 40 mg tablet,delayed 40 mg PO BIDCM ACID REFLUX #60 tabs 03/06/25 Unknown Rx release octreotide,microspheres 20 mg 40 mg IM Q4W #2 ea 03/0903/11/25 Rx intramuscular susp, extended release (Sandostatin LAR Depot) prochlorperazine maleate 10 mg 10 mg PO Q6H PRN nausea and 03/13/25 Unknown History tablet vomiting Allergy/AdvReac Type Severity Reaction Status Date / Time watermelon Allergy Intermediate Hives Verified 03/13/25 16:32 Family History Father Cancer spinal Mother Alzheimer's disease Brother Pacemaker Surgical History Hx of colonoscopy History of creation of ostomy Status post [place] procedure History of cystoscopy History of amputation of finger of right hand History of toe surgery History of cataract extraction History of breast surgery History of D&C History of tonsillectomy History of appendectomy History of hysterectomy Social History household members: spouse pets and animals: Yes (dogs) Smoking Status: Former smoker how long ago did patient quit smokin alcohol intake: former substance use type: does not use Physical Exam Const alert, oriented x3 and no apparent distress HEENT normocephalic and head/scalp atraumatic Resp normal respiratory effort Cardio regular rate GI soft to palpation and non-tender; Negative for non-distended GI Narrative: Prolapse of the transverse colostomy with edema. Palpation: Negative for guarding Extremity no clubbing, cyanosis or edema Skin no rashes or lesions noted Neuro CN's II-XII intact bilaterally Psych mental status grossly normal Lab / Micro Data 03/13/25 16:53 03/13/25 16:53 Labs: Laboratory Results - last 24 hr 03/13/25 16:53: WBC 16.4 H, RBC 3.32 L, Hgb 8.5 L, Hct 28.9 L, MCV 87.0, MCH 25.6 L, MCHC 29.4 L, RDW Std Deviation 59.0 H, RDW Coeff of Eloisa 18.6 H, Plt Count 468 H, MPV 9.9, Immature Gran % (Auto) 2.300 H, Neut % (Auto) 80.3 H, L ymph % (Auto) 6.4 L, [place] % (Auto) 8.9, Eos % (Auto) 1.6, Baso % (Auto) 0.5, A bsolute Neuts (auto) 13.2 H, Absolute Lymphs (auto) 1.05, Nucleated RBC % 0.3, Sodium 137, Potassium 4.3, Chloride 98, Carbon Dioxide 27.4, Anion Gap 11, BUN 20 H, Creatinine 0.73, Est GFR (MDRD) Non-Af 85, BUN/Creatinine Ratio 26.7 H, G lucose 123 H, Calcium 9.2 Imaging Radiology Impression Chest X-Ray 03/13/25 17:05 IMPRESSION: See above Reading Location: [facility] Charges/Coding Visit Charges Office Visits / Consults: 24335 ED Visit; High/Urgent Severity
--- NOTE | 2025-03-13 20:55 | ED.RN ---
Per MD orders, ostomy care completed and bag placed for the patient. Educated on discharge instructions, all questions answered.
== END 2025-03-13 20:59 | disposition home or self-care (01) ==
PROVIDERS: Physician Assistant; Emergency Provider Emergency Medicine; PCP Family Medicine; Referring Provider Emergency Medicine; Visit Provider Emergency Medicine
DX: K94.01 Colostomy hemorrhage (principal); J44.9 Chronic obstructive pulmonary disease, unspecified; K21.9 Gastro-esophageal reflux disease without esophagitis; E78.00 Pure hypercholesterolemia, unspecified; Z87.891 Personal history of nicotine dependence; I10 Essential (primary) hypertension; Z85.118 Personal history of other malignant neoplasm of bronchus and lung; Z99.81 Dependence on supplemental oxygen
CPT/HCPCS: 71046; 80048; 85025; 93005; 99282; A4216

== ENCOUNTER 2025-03-24 22:42 | Emergency (ER) | payer MEDICARE, MEDICAID, SELFPAY ==
[2025-03-24 22:43] VITALS: BP 131/63; PULSE 104; RESP 24; TEMP 36.8; O2SAT 93
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
[2025-03-24] MEDS: Morphine 4 MG/ML Syringe IM (23:40)
[2025-03-24] MEDS: Ondansetron ODT 4 MG Tablet PO (23:40)
[2025-03-24] MEDS: Orphenadrine 100 MG Tablet PO (23:40)
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
[2025-03-25] MEDS: 0.9% Normal Saline (500mL Bag) 500 ML 999 ML IV (00:40)
[2025-03-25 00:42] VITALS: BP 142/80; PULSE 80; RESP 18; O2SAT 98
[2025-03-25 01:04] LABS: Absolute Lymphocyte Count 0.69 X10^3/uL (0.83-4.51); Basophil# 0.05 X10^3/uL; Basophil% 0.3 % (0-1); Eosinophil# 0.24 X10^3/uL; Eosinophils% 1.4 % (0-5); Hematocrit 32.7 % (37-47); Hemoglobin 9.6 g/dL (12.0-15.0); Lymphocyte # 0.69 X10^3/ul (0.83-4.51); Mean Corp Hgb Conc 29.4 g/dL (32-36); Mean Corpuscular Hgb 24.9 pg (27.0-32.0); Mean Corpuscular Volume 84.9 fL (81-99); Mean Platelet Vol. 9.8 fl (6.2-12.0); Monocyte# 0.78 X10^3/uL; Monocyte% 4.6 % (0-10); NRBC Flagged by Analyzer 0 % (0-5); Neutrophil # 14.99 X10^3/uL (2.7-7.7); Neutrophil % 87.5 % (47-70); Platelet Count 475 K/mm3 (150-450); RBC Distribution Width CV 18.8 % (11.6-14.6); RBC Distribution Width SD 58.3 fl (35.1-43.9); Red Blood Count 3.85 M/mm3 (4.2-5.4); White Blood Count 17.1 K/mm3 (4.4-11.0)
[2025-03-25 01:32] VITALS: O2SAT 96
[2025-03-25 01:38] LABS: International Normalized Ratio 1.1; Prothrombin Time (Protime)PT. 14.1 SECONDS (11.7-14.9)
[2025-03-25 01:39] LABS: Partial Thromboplast Time 32.7 Seconds (24.1-36.2)
[2025-03-25 01:40] LABS: Anion Gap 10 (5-15); BUN 17 mg/dL (4-19); BUN/Creat Ratio 30.2 RATIO (10-20); Calcium,Total 9.3 mg/dL (7.6-11.0); Carbon Dioxide 26.7 mmol/L (21.0-32.0); Chloride 98 mmol/L (98-108); Creatinine, Serum 0.56 mg/dL (0.70-1.20); EST Glomerular Filtration Rate 94 (>60); Glucose 144 mg/dL (70-99); Sodium Level 134 mmol/L (133-145)
[2025-03-25 02:00] VITALS: BP 143/75; PULSE 107; RESP 18; O2SAT 97
[2025-03-25 02:52] VITALS: BMI 19.1
[2025-03-25] MEDS: Morphine 2 MG/ML Syringe IV (02:52)
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
[2025-03-25 03:23] VITALS: BP 134/71; PULSE 103; RESP 18; TEMP 36.6; O2SAT 95
== END 2025-03-25 03:47 | disposition short-term general hospital (02) ==
PROVIDERS: Emergency Provider Emergency Medicine; PCP Family Medicine; Visit Provider Emergency Medicine
DX: S36.039A Unspecified laceration of spleen, initial encounter (principal); C34.92 Malignant neoplasm of unspecified part of left bronchus or lung; Z93.3 Colostomy status; J44.9 Chronic obstructive pulmonary disease, unspecified; S22.20XA Unspecified fracture of sternum, initial encounter for closed fracture; S22.31XA Fracture of one rib, right side, initial encounter for closed fracture; V89.2XXA Person injured in unspecified motor-vehicle accident, traffic, initial encounter; I10 Essential (primary) hypertension; I35.0 Nonrheumatic aortic (valve) stenosis; D64.9 Anemia, unspecified; K21.9 Gastro-esophageal reflux disease without esophagitis; E78.00 Pure hypercholesterolemia, unspecified; K59.09 Other constipation; G25.81 Restless legs syndrome; Z79.51 Long term (current) use of inhaled steroids; Z79.899 Other long term (current) drug therapy; Z87.891 Personal history of nicotine dependence
CPT/HCPCS: 36415; 36591; 70450; 71250; 71275; 72125; 72128; 74174; 80048; 85025; 85610; 85730; 96361; 96372; 96374; 99284; Q9967; A4216